=== PATIENT | female | born 1945 | race Caucasian/White ===

== ENCOUNTER 2018-01-13 10:57 | Inpatient (IN) ==
--- OUTSIDE RECORDS SUMMARY | 2018-01-13 17:01 | External Medical Summary | Continuity of Care Document ---
:1945 Author Organization [facility] Care Team Providers Name Role Phone [employer] Unavailable Unavailable Encounters Location Location Encounter Encounter Reason Attending ADM DC Status Source Details Type Number For Provider Date Date Visit INPATIENT [id number] [facility] 12/29 01/13 [facility] Active [facility]
--- OUTSIDE RECORDS SUMMARY | 2018-01-13 17:02 | External Medical Summary | Clinical Summary ---
:1945 Author Organization [facility] Address [address] [place] [address] Phone Care Team Providers Name Role Phone Pastor Fatima MD Primary Care Provider Source Comments Some departments are not documenting in the electronic medical record. If you do not see the information that you expected, contact Release of Information in the Health Information Management department at [phone] for further assistance in locating additional records.[facility] Allergies Active Allergy Reactions Severity Noted Date Comments Codeine UNKNOWN Low 12/29/2017 Penicillins UNKNOWN Low 12/29/2017 Current Medications Prescription Sig. Disp. Refills Start End Date Status Date methyldopa Take 250 mg by Active (ALDOMET) 250 mg mouth twice daily. tablet acetaminophen Take 2 tablets by 0 Active (TYLENOL) 325 mg mouth every 4 8 tablet hours as needed. oxyCODONE Take 1 tablet by 0 Active (ROXICODONE, mouth every 4 8 OXY-IR) 5 mg hours as needed tablet glyBURIDE Take 1 tablet by 90 tablet 3 Active (DIABETA) 2.5 mg mouth twice daily 8 tablet with meals. Take with food. metFORMIN Take 1 tablet by 180 tablet 3 Active (GLUCOPHAGE) 500 mouth twice daily 8 mg tablet with meals. niMODipine Take 2 capsules by 01/20/20 Active (NIMOTOP) 30 mg mouth every 4 8 18 capsule hours for 7 days. heparin (porcine) Inject 0.5 mL Active PF under the skin 8 5,000units/0.5mL every 8 hours. May injection syringe discontinue once mobilizing well senna/docusate Take 1 tablet by 0 Active (SENOKOT-S) 8.6/50 mouth twice daily. 8 mg tablet Take while taking pain medication spironolactone-hyd Take 1 tablet by 90 tablet 3 Active rochlorothiazide mouth every 8 (ALDACTAZIDE) morning. D NOT 25-25 mg tablet restart until after nimotop is stopped; approximately 01/21/18 sodium chloride(#) Take 8.5 mL by Active inj for po 4 mouth three times 8 mEq/mL daily with meals. methyldopa Take 500 mg by 12/29/19 Discontinued (ALDOMET) 500 mg mouth three times 18 tablet daily. spironolactone-hyd Take 1 tablet by 01/13/20 Suspended rochlorothiazide mouth every 18 (ALDACTAZIDE) morning. 25-25 mg tablet glyBURIDE-metformi Take 1 tablet by 01/13/20 Suspended n (GLUCOVANCE) mouth twice daily. 18 2.5-500 mg tablet Take with food. Active Problems Problem Noted Date Diabetes (HCC) 12/29/2017 Hypertension 12/29/2017 Subarachnoid hemorrhage (HCC) 12/29/2017 Encounters Date Type Specialty Care Team Description 12/29/2017 - Hospital Encounter Husmann, Diabetes ([facility]) 01/13/2018 MD Ruslan Perez Paul J, MD 12/29/2017 Procedure Pass 12/29/2017 Anesthesia Event Lul Smith MD 12/29/2017 Procedure Pass 12/29/2017 Surgery Oumar Mercer MD CRANIOTOMY 12/29/2017 Anesthesia Event Radiology Michael Posada SRNA 12/29/2017 Procedure Pass from Last 3 Months Social History Tobacco Use Types Packs/Day Years Used Date Former Smoker Smokeless Tobacco: Never Used Alcohol Use Drinks/Week oz/Week Comments No Sex Assigned at Date Recorded Not on file Last Filed Vital Signs Vital Sign Reading Time Taken Blood Pressure 147/68 01/13/2018 8:03 AM FEATHER TRIMMER Pulse 82 01/13/2018 8:03 AM FEATHER TRIMMER Temperature 37.1 C (98.8 F) 01/13/2018 8:03 AM FEATHER TRIMMER Respiratory Rate - - Oxygen Saturation 99% 01/13/2018 8:03 AM FEATHER TRIMMER Inhaled Oxygen Concentration - - Weight 101.8 kg (224 lb 6.9 oz) 01/07/2018 3:00 AM FEATHER TRIMMER Height 165.1 cm (5' 5") 12/30/2017 3:00 PM FEATHER TRIMMER Body Mass Index 37.35 01/07/2018 3:00 AM FEATHER TRIMMER Plan of Treatment Health Maintenance Due Date Last Done Comments PHYSICAL (COMPREHENSIVE) EXAM 1950 PERTUSSIS VACCINE 1954 TETANUS VACCINE 1960 BREAST CANCER SCREENING 1983 COLORECTAL CANCER SCREENING 1993 SHINGLES VACCINE 2003 OSTEOPOROSIS SCREENING 2008 PREVNAR/PNEUMOVAX (#1) 2008 INFLUENZA VACCINE 06/23/2017 Implants Implanted Type Area Radio Interference Investigator Device Expiration Model / Identifier Date Serial / Lot Device Closure 6fr Starclose Se Vascular Nitinol Clip - Sn/A Right: ARMANDO [id number] / Implanted: Qty: 1 on 12/29/2017 by Ruben Helm MD Femoral LAB:VASC DEV N/A / Artery [id number] Substitute Tissue 3x3in Lyoplant Dura Sodium Hydroxide Onlay - [id number] Left : AESCULAP NEURO 08/22/2022 [id number] / Implanted: Qty: 1 on 12/29/2017 by Oumar Mercer MD Brain DIVISION [id number] / [id number] Clip 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 - [id number] Left: NANCY BARNEY 45.760 / Implanted: Qty: 1 on 12/29/2017 by Oumar Mercer MD Brain 45.760 / 45.760 Mesh Cranial .6mm Small Temporal Titanium Latex Free - [id number] Left: CHRISTIE IRELAND [facility] / Implanted: Qty: 1 on 12/29/2017 by Oumar Mercer MD Brain IMPLANTS / Cover [place] Hole L17mm Od3mm - [id number] Left: CHRISTIE IRELAND [facility] / Implanted: Qty: 2 on 12/29/2017 by Oumar Mercer MD Brain IMPLANTS / Screw Bone 4mm 1.5mm Drill-Free Maxdrive Craniomaxillofacial - [id number] Left: CHRISTIE IRELAND CMF [id number] / Implanted: Qty: 16 on 12/29/2017 by Oumar Mercer MD Brain IMPLANTS [id number] / [id number] Procedures Procedure Name Priority Date/Time Associated Diagnosis Comments CONSULT IV THERAPY Routine 01/03/2018 6:32 TEAM PM FEATHER TRIMMER ECG-SCAN 12/29/2017 11:15 Results for this PM FEATHER TRIMMER procedure are in the results section. ANESTHESIA ARTERIAL Routine 12/29/2017 1:11 Results for this LINE INSERTION PM FEATHER TRIMMER procedure are in the results section. REPAIR ANEURYSM 12/29/2017 11:00 Subarachnoid CRANIOTOMY AM FEATHER TRIMMER hemorrhage (HCC) from Last 3 Months Results POC GLUCOSE (01/13/2018 7:11 AM)Only the most recent of77 resultswithin the time period is included. Component Value Ref Range Glucose, POC 107 (H) 70 - 100 MG/DL Specimen Performing Laboratory MAIN LAB [address] [place] [id number] CBC AND DIFF (01/13/2018 4:10 AM)Only the most recent of16 resultswithin the time period is included. Component Value Ref Range White Blood Cells 8.1 4.5 - 11.0 K/UL RBC 3.12 (L) 4.0 - 5.0 M/UL Hemoglobin 10.0 (L) 12.0 - 15.0 GM/DL Hematocrit 28.7 (L) 36 - 45 % MCV 91.7 80 - 100 FL MCH 31.9 26 - 34 PG MCHC 34.8 32.0 - 36.0 G/DL RDW 15.3 (H) 11 - 15 % Platelet Count 200 150 - 400 K/UL MPV 7.0 7 - 11 FL Neutrophils 76 41 - 77 % Lymphocytes 16 (L) 24 - 44 % Monocytes 6 4 - 12 % Eosinophils 1 0 - 5 % Basophils 1 0 - 2 % Absolute Neutrophil Count 6.20 1.8 - 7.0 K/UL Absolute Lymph Count 1.30 1.0 - 4.8 K/UL Absolute Monocyte Count 0.40 0 - 0.80 K/UL Absolute Eosinophil Count 0.10 0 - 0.45 K/UL Absolute Basophil Count 0.00 0 - 0.20 K/UL Specimen Performing Laboratory Blood MAIN LAB [address] [place] [address] BASIC METABOLIC PANEL (01/13/2018 4:10 AM)Only the most recent of15 resultswithin the time period is included. Component Value Ref Range Sodium 133 (L) 137 - 147 MMOL/L Potassium 4.4 3.5 - 5.1 MMOL/L Chloride 102 98 - 110 MMOL/L CO2 25 21 - 30 MMOL/L Anion Gap 6 3 - 12 Glucose 100 70 - 100 MG/DL Blood Urea Nitrogen 25 7 - 25 MG/DL Creatinine 0.80 0.4 - 1.00 MG/DL Calcium 9.0 8.5 - 10.6 MG/DL eGFR Non >60 >60 mL/min Comment: The eGFR is not validated for use in drug dosing adjustments.Continue to use estimated creatinine clearance per dosing reference text.Please contact the Clinical Pharmacist for questions. eGFR >60 >60 mL/min Comment: The eGFR is not validated for use in drug dosing adjustments.Continue to use estimated creatinine clearance per dosing reference text.Please contact the Clinical Pharmacist for questions. Specimen Performing Laboratory Blood MAIN LAB [address] [place] [id number] SODIUM (01/08/2018 3:49 PM) Component Value Ref Range Sodium 134 (L) 137 - 147 MMOL/L Specimen Performing Laboratory Blood MAIN LAB [address] [place] [address] PHOSPHORUS (01/07/2018 3:34 AM)Only the most recent of10 resultswithin the time period is included. Component Value Ref Range Phosphorus 2.8 2.0 - 4.0 MG/DL Specimen Performing Laboratory Blood MAIN LAB [address] [place] [address] MAGNESIUM (01/07/2018 3:34 AM)Only the most recent of12 resultswithin the time period is included. Component Value Ref Range Magnesium 2.0 1.6 - 2.6 mg/dL Specimen Performing Laboratory Blood MAIN LAB [address] [place] [address] IONIZED CALCIUM (01/07/2018 3:34 AM)Only the most recent of10 resultswithin the time period is included. Component Value Ref Range Ionized Calcium 1.17 1.0 - 1.3 MMOL/L Specimen Performing Laboratory Blood MAIN LAB [address] [place] [address], [place] [address] US DOPPLER VENOUS BILATERAL (01/05/2018 9:41 AM) Specimen Performing Laboratory Bilateral KU RAD RESULTS Impressions No femoral/popliteal deep venous thrombosis in either lower extremity. Approved by Mikayla Nagy M.D. on 01/05/2018 11:32 AM By my electronic signature, I attest that I have personally reviewed the images for this examination and formulated the interpretations and opinions expressed in this report Finalized by Rohit Go M.D. on 01/05/2018 7:19 PM. Dictated by Mikayla Nagy M.D. on 01/05/2018 10:13 AM. Narrative Doppler lower extremity ultrasound Clinical Indication: Female, 72 years; prolonged immobility Technique: Multiple grayscale sonographic images were obtained of both lower extremities with additional color and spectral Doppler acquisitions. Comparison: None Findings: The common femoral, upper saphenous, deep femoral, femoral, and popliteal veins of both lower extremities are patent and fully compressible without focal narrowing.Incidental note is made of duplicated right femoral veins. No soft tissue mass or fluid collection is identified within visualized portions of the lower extremities. Procedure Note Interface, Radiant Results - 01/05/2018 7:22 PM FEATHER TRIMMER Doppler lower extremity ultrasound Clinical Indication: Female, 72 years; prolonged immobility Technique: Multiple grayscale sonographic images were obtained of both lower extremities with additional color and spectral Doppler acquisitions. Comparison: None Findings: The common femoral, upper saphenous, deep femoral, femoral, and popliteal veins of both lower extremities are patent and fully compressible without focal narrowing. Incidental note is made of duplicated right femoral veins. No soft tissue mass or fluid collection is identified within visualized portions of the lower extremities. IMPRESSION No femoral/popliteal deep venous thrombosis in either lower extremity. Approved by Mikayla Nagy M.D. on 01/05/2018 11:32 AM By my electronic signature, I attest that I have personally reviewed the images for this examination and formulated the interpretations and opinions expressed in this report Finalized by Rohit Go M.D. on 01/05/2018 7:19 PM. Dictated by Mikayla Nagy M.D. on 01/05/2018 10:13 AM. BETA HYDROXYBUTYRATE (KETONES) (01/05/2018 4:16 AM) Component Value Ref Range Beta Hydroxybutyrate 0.1 <0.3 MMOL/L Comment: Beta hydroxybutyrate (BOHB) is the most abundant ketone (78%), followed by acetoacetate (20%) and acetone (2%).Measurement BOHB is recommended to assess ketones in DKA. Expected BOHB Results for DKA: Initial presentation high/increasing During treatment decreasing Resolved decreasing/normal Specimen Performing Laboratory MAIN LAB [address] [place] [address] UA REFLEX CULTURE LABEL (12/31/2017 11:45 PM) Component Value Ref Range UA Reflex Culture LAB LABEL Specimen Performing Laboratory Urine MAIN LAB [address] [place] [address] URINALYSIS MICROSCOPIC REFLEX TO CULTURE (12/31/2017 11:45 PM) Component Value Ref Range WBCs,UA 2-10 0 - 2 /HPF RBCs,UA 0-2 0 - 3 /HPF Comment,UA Urine submitted for reflex culture if criteria are met:WBC>10, positive nitrite and/or >=1+ leukocyte esterase. If quantity is not sufficient, an addendum will follow. Squamous Epithelial Cells 0-2 0 - 5 Specimen Performing Laboratory Urine MAIN LAB [address] [place] [address] URINALYSIS DIPSTICK REFLEX TO CULTURE (12/31/2017 11:45 PM) Component Value Ref Range Color,UA YELLOW Turbidity,UA CLEAR CLEAR-CLEAR Specific [place]-Urine 1.027 1.003 - 1.035 pH,UA 6.0 5.0 - 8.0 Protein,UA 1+ (A) NEG-NEG Glucose,UA NEG NEG-NEG Ketones,UA 1+ (A) NEG-NEG Bilirubin,UA NEG NEG-NEG Blood,UA NEG NEG-NEG Urobilinogen,UA NORMAL NORM-NORMAL Nitrite,UA NEG NEG-NEG Leukocytes,UA NEG NEG-NEG Urine Ascorbic Acid, UA NEG NEG-NEG Specimen Performing Laboratory Urine MAIN LAB [address] [place] [address] POTASSIUM (12/30/2017 10:31 AM) Component Value Ref Range Potassium 3.8 3.5 - 5.1 MMOL/L Specimen Performing Laboratory Blood MAIN LAB [address] [place] [address] CTA HEAD WO/W CONTR+POST PRO (12/30/2017 4:18 AM)Only the most recent of2 resultswithin the time period is included. Specimen Performing Laboratory KU RAD RESULTS Impressions 1.Interval left pterional craniotomy and anterior communicating artery aneurysm clipping. No refilling of the aneurysm identified. 2.Slight improvement in basilar subarachnoid hemorrhage with persistent sulcal effacement. 3.Slight decrease in size of the posterior commuting arteries, which may be due to contrast bolus timing or early mild vasospasm. 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 Approved by Shorty Mi D.O. on 12/30/2017 9:32 AM By my electronic signature, I attest that I have personally reviewed the images for this examination and formulated the interpretations and opinions expressed in this report Finalized by PETEY GONZALEZ M.D. on 12/30/2017 12:45 PM. Dictated by Shorty Mi D.O. on 12/30/2017 8:18 AM. Narrative EXAM: CTA HEAD HISTORY: Female, 72 years. s/p clipping. TECHNIQUE: Multiple contiguous axial images were obtained of the brain before and following the administration of Isovue 370. CTA maximum density projection images were obtained of the brain with image post processing. Comparison: CTA head 12/29/2017 FINDINGS: Postoperative changes of interval left pterional craniotomy and anterior communicating artery clipping. Slight decrease in subarachnoid hemorrhage. Persistent mild generalized sulcal effacement. The ventricles are unchanged in size and configuration without evidence of hydrocephalus. Development of small hypodensity in the right basal ganglia. The zarate white matter interfaces are otherwise maintained. The basal cisterns are patent. Unchanged mild bilateral distal internal carotid artery atherosclerotic calcification without significant narrowing. 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 No filling of the previously identified anterior communicating artery aneurysm. The right A1 segment is hypoplastic or absent. The distal anterior cerebral arteries are widely patent. The middle cerebral arteries are widely patent. The left vertebral artery is dominant. The basilar and posterior cerebral arteries are patent, though slightly small in caliber, without irregularity. Procedure Note Interface, Radiant Results - 12/30/2017 12:48 PM FEATHER TRIMMER EXAM: CTA HEAD HISTORY: Female, 72 years. s/p clipping. TECHNIQUE: Multiple contiguous axial images were obtained of the brain before and following the administration of Isovue 370. CTA maximum density projection images were obtained of the brain with image post processing. Comparison: CTA head 12/29/2017 FINDINGS: Postoperative changes of interval left pterional craniotomy and anterior communicating artery clipping. Slight decrease in subarachnoid hemorrhage. Persistent mild generalized sulcal effacement. The ventricles are unchanged in size and configuration without evidence of hydrocephalus. Development of small hypodensity in the right basal ganglia. The zarate white matter interfaces are otherwise maintained. The basal cisterns are patent. Unchanged mild bilateral distal internal carotid artery atherosclerotic calcification without significant narrowing. 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 No filling of the previously identified anterior communicating artery aneurysm. The right A1 segment is hypoplastic or absent. The distal anterior cerebral arteries are widely patent. The middle cerebral arteries are widely patent. The left vertebral artery is dominant. The basilar and posterior cerebral arteries are patent, though slightly small in caliber, without irregularity. IMPRESSION 1. Interval left pterional craniotomy and anterior communicating artery aneurysm clipping. No refilling of the aneurysm identified. 2. Slight improvement in basilar subarachnoid hemorrhage with persistent sulcal effacement. 3. Slight decrease in size of the posterior commuting arteries, which may be due to contrast bolus timing or early mild vasospasm. 4. 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 Approved by Shorty Mi D.O. on 12/30/2017 9:32 AM By my electronic signature, I attest that I have personally reviewed the images for this examination and formulated the interpretations and opinions expressed in this report Finalized by PETEY GONZALEZ M.D. on 12/30/2017 12:45 PM. Dictated by Shorty Mi D.O. on 12/30/2017 8:18 AM. TROPONIN-I (12/30/2017 2:05 AM) Component Value Ref Range Troponin-I 0.03 0.0 - 0.05 NG/ML Specimen Performing Laboratory MAIN LAB [address] [place] [address] ECG-SCAN (12/29/2017 11:15 PM) Narrative Ordered by an unspecified provider. GLUCOSE,BG (12/29/2017 1:50 PM) Component Value Ref Range Glucose 228 (H) 70 - 100 MG/DL Specimen Performing Laboratory Blood MAIN LAB [address] [place] [address] SODIUM,BG (12/29/2017 1:50 PM) Component Value Ref Range Sodium 136 (L) 137 - 147 MMOL/L Specimen Performing Laboratory Blood MAIN LAB [address] [place] [id number] POTASSIUM, BG (12/29/2017 1:50 PM) Component Value Ref Range Potassium 4.3 3.5 - 5.1 MMOL/L Specimen Performing Laboratory Blood MAIN LAB [address] [place] [address]17[address] LACTIC ACID (BG - RAPID LACTATE) (12/29/2017 1:50 PM) Component Value Ref Range Lactic Acid,BG 1.2 0.5 - 2.0 MMOL/L Specimen Performing Laboratory Blood MAIN LAB [address] [place] [address] IONIZED CALCIUM,BG (12/29/2017 1:50 PM) Component Value Ref Range Ionized Calcium 1.12 1.0 - 1.3 MMOL/L Specimen Performing Laboratory Blood MAIN LAB [address] [place] [address] HEMOGLOBIN & HEMATOCRIT, BG (12/29/2017 1:50 PM) Component Value Ref Range Hemoglobin BG 11.0 (L) 12.0 - 15.0 GM/DL Hematocrit BG 33.8 (L) 36 - 45 % Specimen Performing Laboratory Blood MAIN LAB [address] [place] [address] BLOOD GASES, ARTERIAL (12/29/2017 1:50 PM)Only the most recent of2 resultswithin the time period is included. Component Value Ref Range pH-Arterial 7.38 7.35 - 7.45 pCO2-Arterial 31 (L) 35 - 45 MMHG pO2-Arterial 192 (H) 80 - 100 MMHG Base Deficit-Arterial 5.9 MMOL/L O2 Sat-Arterial 99.6 (H) 95 - 99 % Ntdhalglvin-SHH-Pcb 19.6 (L) 21 - 28 MMOL/L Specimen Performing Laboratory Blood, arterial - Blood MAIN LAB [address] [place] [address] ANESTHESIA ARTERIAL LINE INSERTION (12/29/2017 1:11 PM) GEORGETTE He 12/29/20171:14 PM Anesthesia Procedure: Arterial Line Placement A-LINE INSERTION Date/Time: 12/29/2017 8:56 AM Patient location: OR Indications: frequent labs and hemodynamic monitoring Preprocedure checklist performed: 2 patient identifiers, risks & benefits discussed, patient evaluated, timeout performed, consent obtained, patient being monitored and sterile drape Sterile technique: - Proper hand washing - Cap, mask - Sterile gloves - Skin prep for antisepsis Arterial Line Procedure Patient sedated: yes (see MAR) Sedation type: general; Artery prepped with chlorhexidine; skin prep agent completely dried prior to procedure. Location: radial artery Laterality: left Technique: ultrasound Needle gauge: 20 G Number of attempts: 2 Procedure Outcome Catheter secured with adhesive dressing applied Events: no complications noted during insertion and skin intact, warm, and dry Observation: pt tolerated well Performed by: LUL PANIAGUA Authorized by: LUL PANIAGUA BLOOD TYPE CONFIRMATION - ORDER ONLY IF REQUESTED BY LAB (12/29/2017 12:01 PM) Component Value Ref Range ABO/RH(D) A NEG Specimen Performing Laboratory Blood KU MAIN LAB [address] [place] [address] IR ARTERIOGRAM NEURO (12/29/2017 10:56 AM) Specimen Performing Laboratory KU RAD RESULTS Impressions 1.Irregularly shaped anterior communicating artery aneurysm measuring 6.03 mm in height, 5.11 mm in width, and 3.5 mm at the neck with a Espinoza's point arising from the aneurysm measuring 2.17 mm x 2.85 mm. After a multidisciplinary discussion with Dr. Mercer, the on-call vascular neurosurgeon, the decision was made to proceed with neurosurgical clipping of the aneurysm due to its wide neck and difficult visualization of the entire aneurysm on digital subtraction angiography. 2.Right P-comm artery aneurysm measuring 3.11 mm in height, 3.27 mm in width, and 2.76 mm at the neck. 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 I performed this procedure without the involvement of a resident or fellow. Finalized by RUBEN HELM M.D. on 12/29/2017 3:07 PM. Dictated by RUBEN HELM M.D. on 12/29/2017 1:16 PM. Narrative Cerebral Angiogram Indication - SAH Procedures Performed 1) Right common carotid artery cervical angiogram. 2) Selective right internal carotid artery cerebral angiograms x 5. 3) Selective right internal carotid artery 3D cerebral angiogram. 4) Selective left vertebral artery cerebral angiograms x 2. 5) Selective left internal carotid artery cerebral angiograms x 4. 6) Selective left internal carotid artery 3D cerebral angiogram. 7) Right common femoral artery angiograms x 2. Referring Physician - Oumar Mercer M.D. Neurointerventionalist:Ruben Helm MD Contrast - 200 cc Chd500 Total mGy - 1821 Anesthesia: General endotracheal anesthesia Consent -The procedure and its risks, benefits, and alternative treatments were explained to the patient and her and they understood them and she signed the consent form. Clinical History: Mrs. Dillon is a 72 year old female who collapsed in the shower yesterday evening. A CT scan showed subarachnoid hemorrhage and she is here for a cerebral angiogram with possible endovascular coil embolization. Description of Procedure The patient was brought to the angio suite and placed in supine position on the angio table.General endotracheal anesthesia was commenced. The right groin was prepped in a standard sterile fashion.Local anesthesia was obtained with 10 cc of 1 % lidocaine.Following this, a 5 F 25 cm sheath was placed in the right common femoral artery, establishing arterial access. RCCA Technique A 5 [place] 100 cm Vert catheter was advanced over a 150 cm 0.035 [place] wire over the aortic arch and into the right common carotid artery under fluoroscopic guidance.Images of the right cervical carotids were obtained in biplane projections. RCCA Interpretation The angiogram demonstrated normal flow through the cervical carotids with no evidence of significantstenosis. Mild tortuosity is noted in the cervical segment of the right internal carotid artery. ANTOINE Technique Under fluoroscopic and roadmap guidance, the catheter was advanced into the cervical right internal carotid artery and images were obtained in biplane projections of the right anterior intracranial circulation. ANTOINE Interpretation The angiogram demonstrated normal antegrade flow into the right middle cerebral artery territory. 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 The capillary and venous phases are unremarkable. ANTOINE 3D Angiogram Technique The catheter was attached to the contrast power injector and a right internal carotid artery 3D cerebral angiogram was performed. ANTOINE 3D Angiogram Interpretation The angiogram demonstrated a right P-comm artery aneurysm measuring 3.11 mm in height, 3.27 mm in width, and 2.76 mm at the neck. LVA Technique The left vertebral artery was selectively catheterized under fluoroscopic and roadmap guidance over the [place] wire and images were obtained in biplane projections of the posterior intracranial circulation. LVA Interpretation The angiogram demonstrated normal antegrade flow into the vertebrobasilar artery circulation.The capillary and venous phases are unremarkable. LICA Technique Due to a bovine type I aortic arch catheter was switched out for a RAFFY-3 catheter which was advanced into the cervical left internal carotid artery under fluoroscopic and roadmap guidance. Images were obtained in biplane projections of the left anterior intracranial circulation. LICA Interpretation The angiogram demonstrated normal antegrade flow into the left middle and bilateral anterior cerebral artery territories.An irregularly shaped anterior communicating artery aneurysm is noted, measuring 6.03 mm in height, 5.11 mm in width, and 3.5 mm at the neck with a Espinoza's point arising from the aneurysm measuring 2.17 mm x 2.85 mm.The capillary and venous phases are unremarkable. Of note, the roadmap image used to catheterize the left internal carotid artery demonstrated a normal carotid bifurcation. LICA 3D Angiogram Technique The catheter was attached to the contrast power injector and a left internal carotid artery 3D cerebral angiogram was performed. LICA 3D Angiogram Interpretation The angiogram demonstrated an irregularly shaped anterior communicating artery aneurysm measuring 6.03 mm in height, 5.11 mm in width, and 3.5 mm at the neck with a Espinoza's point arising from the aneurysm measuring 2.17 mm x 2.85 mm. After reviewing the final images, the catheter was removed and a right common femoral artery angiogram was performed.The angiogram demonstrated the access site well above the bifurcation with no branching vessels arising from the site; therefore, hemostasis was achieved using a Star close closure device followed by manual pressure for 5 minutes. The patient was transported to the operating room in stable clinical and hemodynamic conditions. Complications - none immediate Procedure Note Interface, Radiant Results - 12/29/2017 3:10 PM FEATHER TRIMMER Cerebral Angiogram Indication - SAH Procedures Performed 1) Right common carotid artery cervical angiogram. 2) Selective right internal carotid artery cerebral angiograms x 5. 3) Selective right internal carotid artery 3D cerebral angiogram. 4) Selective left vertebral artery cerebral angiograms x 2. 5) Selective left internal carotid artery cerebral angiograms x 4. 6) Selective left internal carotid artery 3D cerebral angiogram. 7) Right common femoral artery angiograms x 2. Referring Physician - Oumar Mercer M.D. Neurointerventionalist: Ruben Helm MD Contrast - 200 cc [id number] Total mGy - 1821 Anesthesia: General endotracheal anesthesia Consent - The procedure and its risks, benefits, and alternative treatments were explained to the patient and her and they understood them and she signed the consent form. Clinical History: Mrs. Dillon is a 72 year old female who collapsed in the shower yesterday evening. A CT scan showed subarachnoid hemorrhage and she is here for a cerebral angiogram with possible endovascular coil embolization. Description of Procedure The patient was brought to the angio suite and placed in supine position on the angio table. General endotracheal anesthesia was commenced. The right groin was prepped in a standard sterile fashion. Local anesthesia was obtained with 10 cc of 1% lidocaine. Following this, a 5 F 25 cm sheath was placed in the right common femoral artery, establishing arterial access. RCCA Technique A 5 [place] 100 cm Vert catheter was advanced over a 150 cm 0.035 [place] wire over the aortic arch and into the right common carotid artery under fluoroscopic guidance. Images of the right cervical carotids were obtained in biplane projections. RCCA Interpretation The angiogram demonstrated normal flow through the cervical carotids with no evidence of significant stenosis. Mild tortuosity is noted in the cervical segment of the right internal carotid artery. ANTOINE Technique Under fluoroscopic and roadmap guidance, the catheter was advanced into the cervical right internal carotid artery and images were obtained in biplane projections of the right anterior intracranial circulation. ANTOINE Interpretation The angiogram demonstrated normal antegrade flow into the right middle cerebral artery territory. 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 The capillary and venous phases are unremarkable. ANTOINE 3D Angiogram Technique The catheter was attached to the contrast power injector and a right internal carotid artery 3D cerebral angiogram was performed. ANTOINE 3D Angiogram Interpretation The angiogram demonstrated a right P-comm artery aneurysm measuring 3.11 mm in height, 3.27 mm in width, and 2.76 mm at the neck. LVA Technique The left vertebral artery was selectively catheterized under fluoroscopic and roadmap guidance over the [place] wire and images were obtained in biplane projections of the posterior intracranial circulation. LVA Interpretation The angiogram demonstrated normal antegrade flow into the vertebrobasilar artery circulation. The capillary and venous phases are unremarkable. LICA Technique Due to a bovine type I aortic arch catheter was switched out for a RAFFY-3 catheter which was advanced into the cervical left internal carotid artery under fluoroscopic and roadmap guidance. Images were obtained in biplane projections of the left anterior intracranial circulation. LICA Interpretation The angiogram demonstrated normal antegrade flow into the left middle and bilateral anterior cerebral artery territories. An irregularly shaped anterior communicating artery aneurysm is noted, measuring 6.03 mm in height, 5.11 mm in width, and 3.5 mm at the neck with a Espinoza's point arising from the aneurysm measuring 2.17 mm x 2.85 mm. The capillary and venous phases are unremarkable. Of note, the roadmap image used to catheterize the left internal carotid artery demonstrated a normal carotid bifurcation. LICA 3D Angiogram Technique The catheter was attached to the contrast power injector and a left internal carotid artery 3D cerebral angiogram was performed. LICA 3D Angiogram Interpretation The angiogram demonstrated an irregularly shaped anterior communicating artery aneurysm measuring 6.03 mm in height, 5.11 mm in width, and 3.5 mm at the neck with a Espinoza's point arising from the aneurysm measuring 2.17 mm x 2.85 mm. After reviewing the final images, the catheter was removed and a right common femoral artery angiogram was performed. The angiogram demonstrated the access site well above the bifurcation with no branching vessels arising from the site; therefore, hemostasis was achieved using a Star close closure device followed by manual pressure for 5 minutes. The patient was transported to the operating room in stable clinical and hemodynamic conditions. Complications - none immediate IMPRESSION 1. 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 After a multidisciplinary discussion with Dr. Mercer, the on-call vascular neurosurgeon, the decision was made to proceed with neurosurgical clipping of the aneurysm due to its wide neck and difficult visualization of the entire aneurysm on digital subtraction angiography. 2. Right P-comm artery aneurysm measuring 3.11 mm in height, 3.27 mm in width , and 2.76 mm at the neck. 3. Type I Bovine aortic arch. I performed this procedure without the involvement of a resident or fellow. Finalized by RUBEN HELM M.D. on 12/29/2017 3:07 PM. Dictated by RUBEN HELM M.D. on 12/29/2017 1:16 PM. TYPE & CROSSMATCH (12/29/2017 10:45 AM) Component Value Ref Range Units Ordered 2 Crossmatch Expires 01/01/2018 Record Check 2ND TYPE REQUIRED ABO/RH(D) A NEG Antibody Screen NEG Electronic Crossmatch YES Unit Number [id number] Blood Component Type RBC,ADSOL,LEUKO REDUCED Unit Division 0 Status OF Unit REL FROM ALLOC Transfusion Status OK TO TRANSFUSE Crossmatch Result COMPATIBLE,ELECTRONIC Unit Number [id number] Blood Component Type RBC,ADSOL,LEUKO REDUCED,2ND CONT. Unit Division 0 Status OF Unit REL FROM ALLOC Transfusion Status OK TO TRANSFUSE Crossmatch Result COMPATIBLE,ELECTRONIC Specimen Performing Laboratory [facility] [address] [place] [address] [id number] PTT (APTT) (12/29/2017 5:44 AM) Component Value Ref Range APTT 24.8 21.0 - 39.0 SEC Specimen Performing Laboratory [facility] [address] [place] [address] [id number] PROTIME INR (PT) (12/29/2017 5:44 AM) Component Value Ref Range INR 1.1 0.8 - 1.2 Specimen Performing Laboratory [facility] [address] [place] [address] [id number] LACTIC ACID(LACTATE) (12/29/2017 5:44 AM) Component Value Ref Range Lactic Acid 1.7 0.5 - 2.0 MMOL/L Specimen Performing Laboratory [facility] [address] [place] [address] [id number] HEMOGLOBIN A1C (12/29/2017 5:44 AM) Component Value Ref Range Hemoglobin A1C 6.7 (H) 4.0 - 6.0 % Comment: The ADA recommends that most patients with type 1 and type 2 diabetes maintain an A1c level <7%. Specimen Performing Laboratory [facility] [address] [place] [address] [id number] LIPID PROFILE (12/29/2017 5:44 AM) Component Value Ref Range Cholesterol 111 <200 MG/DL Triglycerides 40 <150 MG/DL HDL 42 >40 MG/DL LDL 63 <100 MG/DL VLDL 8 MG/DL Non HDL Cholesterol 69 MG/DL Comment: Calculated non-HDL Cholesterol (non-HDL-C) indirectly measures LDL-C, Lp(a), IDL-C, and VLDL-C.It is a surrogate marker for Apoprotein B.Goal should be less than 130 mg/dL. Specimen Performing Laboratory [facility] [address] [place] [address] COMPREHENSIVE METABOLIC PANEL (12/29/2017 5:44 AM) Component Value Ref Range Sodium 137 137 - 147 MMOL/L Potassium 4.6 3.5 - 5.1 MMOL/L Chloride 108 98 - 110 MMOL/L Glucose 252 (H) 70 - 100 MG/DL Blood Urea Nitrogen 18 7 - 25 MG/DL Creatinine 0.83 0.4 - 1.00 MG/DL Calcium 8.8 8.5 - 10.6 MG/DL Total Protein 6.1 6.0 - 8.0 G/DL Total Bilirubin 0.4 0.3 - 1.2 MG/DL Albumin 3.6 3.5 - 5.0 G/DL Alk Phosphatase 40 25 - 110 U/L AST (SGOT) 15 7 - 40 U/L CO2 22 21 - 30 MMOL/L ALT (SGPT) 9 7 - 56 U/L Anion Gap 7 3 - 12 eGFR Non >60 >60 mL/min Comment: The eGFR is not validated for use in drug dosing adjustments.Continue to use estimated creatinine clearance per dosing reference text.Please contact the Clinical Pharmacist for questions. eGFR >60 >60 mL/min Comment: The eGFR is not validated for use in drug dosing adjustments.Continue to use estimated creatinine clearance per dosing reference text.Please contact the Clinical Pharmacist for questions. Specimen Performing Laboratory [facility] [address] [place] [address] from Last 3 Months
--- OUTSIDE RECORDS SUMMARY | 2018-01-13 17:03 | External Medical Summary | Encounter Summary ---
:[address] [facility] Address [address] [place] [address] Phone Care Team Providers Name Role Phone Pastor Fatima MD Primary Care Provider Reason for Visit Auth/Cert Status Reason Specialty Diagnoses / Procedures Referred By Contact Referred To Contact Diagnoses Subarachnoid hemorrhage (HCC) Ruptured Aneurysm Subarachnoid hemorrhage (HCC) Encounter Details Date Type Department Care Team Description 12/29/2017 - Hospital Encounter [facility] Ana Harvey MD [address] [place] [id number] [phone] Diabetes (HCC) 01/13/2018 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 SCIENTIST Pulse 82 01/13/2018 8:03 AM FOOD PRESERVATION SCIENTIST Temperature 37.1 C (98.8 F) 01/13/2018 8:03 AM FOOD PRESERVATION SCIENTIST Respiratory Rate - - Oxygen Saturation 99% 01/13/2018 8:03 AM FOOD PRESERVATION SCIENTIST Inhaled Oxygen Concentration - - Weight 101.8 kg (224 lb 6.9 oz) 01/07/2018 3:00 AM FOOD PRESERVATION SCIENTIST Height 165.1 cm (5' 5") 12/30/2017 3:00 PM FOOD PRESERVATION SCIENTIST Body Mass Index 37.35 01/07/2018 3:00 AM FOOD PRESERVATION SCIENTIST in this encounter Functional Status Functional Status Response Date of Assessment Does the patient have a hearing impairment: No 12/30/2017 as of this encounter Medications at Time of Discharge Medication Sig. Disp. Refills Start Date End Date acetaminophen Take 2 tablets by 0 01/13/2018 (TYLENOL) 325 mg mouth every 4 hours as tablet needed. glyBURIDE (DIABETA) Take 1 tablet by mouth 90 tablet 3 01/13/2018 2.5 mg tablet twice daily with meals. Take with food. heparin (porcine) PF Inject 0.5 mL under 01/13/2018 5,000units/0.5mL the skin every 8 injection syringe hours. May discontinue once mobilizing well metFORMIN (GLUCOPHAGE) Take 1 tablet by mouth 180 tablet 3 01/13/2018 500 mg tablet twice daily with meals. methyldopa (ALDOMET) Take 250 mg by mouth 250 mg tablet twice daily. niMODipine (NIMOTOP) Take 2 capsules by 01/13/2018 01/20/2018 30 mg capsule mouth every 4 hours for 7 days. oxyCODONE (ROXICODONE, Take 1 tablet by mouth 0 01/13/2018 OXY-IR) 5 mg tablet every 4 hours as needed senna/docusate Take 1 tablet by mouth 0 01/13/2018 (SENOKOT-S) 8.6/50 mg twice daily. Take tablet while taking pain medication sodium chloride(#) inj Take 8.5 mL by mouth 01/13/2018 for po 4 mEq/mL three times daily with meals. spironolactone-hydroch Take 1 tablet by mouth 90 tablet 3 01/13/2018 lorothiazide every morning. D NOT (ALDACTAZIDE) 25-25 mg restart until after tablet nimotop is stopped; approximately 01/21/18 as of this encounter Progress Notes Rina Crews, RN - 01/13/2018 9:57 AM Gavinelidia Wilma discharged on 2017. . Discharge instructions reviewed with patient. Valuables returned: . Home medications: . PIVs removed. Afebrile. VSS. All questions answered. Pt leaving hospital via car with nephew. Will be going to rehab facility in [place], [place]. This RN to call report to facility. Anabel MitchellSUSSY - 01/13/2018 8:42 AM CSTFormatting of this note may be different from the original. Neurosurgery Progress Note SUBJECTIVE: Up in chair during visit this AM, brightly awake and engaged. Discussed plan for today;questions and concerns addressed. OBJECTIVE: Vital Signs: 24 Hour Range BP: (146-169)/(41-68) Temp: [36.6 C (97.8 F)-37.1 C (98.8 F)] Pulse: [71-85] Respirations: [17 PER MINUTE-18 PER MINUTE] SpO2: [99 %-100 %] O2 Delivery: None (Room Air) Awake, alert Able to state name, place, month Follows commands x 4, good strength Incision C/D/I Left arm glasses wrapped with gauze ASSESSMENT/PLAN: 72 y.o. female s/p Left frontal craniotomy for clipping acomm aneurysm. Active Hospital Problems Diagnosis Diabetes (HCC) Hypertension Subarachnoid hemorrhage (HCC) PBD # 16; POD # 15 Left ACOMM aneurysm clipping (Dr. 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 Prophylaxis: A)GI: PPI B) Lines: None; PIV C) Urinary Catheter: No D) Antibiotic Usage: No E) VTE: Pharmacological prophylaxis; SQ Heparin and Mechanical prophylaxis; Sequential compression device F) Restraints: Patient assessed for need for restraints. Anabel Mitchell, ANIMAL SHELTER WORKER 8793 Please call [phone] with any questions.Bridgett Mcmahan, PT - 01/12/2018 3: 19 PM CSTPHYSICAL THERAPY NOTE Attempted to see patient for Physical Therapy this date. Patient reports that she just ambulated with OT and then was up to bathroom and does not feel like she can ambulate any more at this time. Educated patient on the benefits of mobility, but she continued to decline. Encouraged patient to walk again with nursing staff later this date. Will continue to follow and treat as able and indicated. Therapist: Bridgett Mcmahan, PT Date: 01/12/2018 Yenny Chandra - 01/12/2018 1:05 PM CSTFormatting of this note may be different from the original. OCCUPATIONAL THERAPY PROGRESS NOTE Patient Name: Yarely Dillon Room/Bed: AJ7353/01 Admitting Diagnosis: Ruptured Aneurysm Subarachnoid hemorrhage (HCC) Past Medical History: Diagnosis Date DM (diabetes mellitus) (HCC) HTN (hypertension) Mobility Progressive Mobility Level: Walk in hallway Distance Walked (feet): 60 ft Level of Assistance: Assist X1 Assistive Device: Walker Time Tolerated: 11-30 minutes Activity Limited By: Weakness;Fatigue;Pain Subjective Pertinent Dx per Physician: 72 y.o female who presented to OSH after fall in shower on 12/28. Developed pain in back of head and lost consciousness, nausea and vomiting post-LOC. CT head obtained with evidence of SAH, transferred to [facility] for management of traumatic vs aneurysmal SAH. 12/29: OR for Left pterional craniotomy for clipping of AComm aneurysm. Precautions: Falls ([employer] video monitor ) Pain / Complaints: Patient agrees to participate in therapy Pain Location: Back Pain Level Current: 7 (RN notified) Comments: Patient positioned for comfort in recliner uppon therapist arrival and departure with needs met and precautions in place. Patient watching TV show. [employer] architecture technician notified of patient's return to room. Objective Psychosocial Status: Willing and Cooperative to Participate Persons Present: None Home Living Type of Home: House Home Layout: Able to Live on Main Level w/Bedrm/Bathrm Access Bathroom Shower / Tub: Walk-in Shower Bathroom Toilet: Standard Prior Function Level Of Kleberg: Independent with ADLs and functional transfers; Independent with homemaking w/ambulation Lives With: Spouse Receives Help From: None Needed Vocational: Retired Vision Current Vision: Wears Glasses All of the Time ADL's Where Assessed: Standing at Sink;Chair;In Bathroom Grooming Assist: Minimal Assist Grooming Deficits: Verbal Cueing;Supervision/Safety;Standing With Assistive Device;Wash/Dry Hands (Contact Guard; Cues to stand within walker at sink) LE Dressing Assist: Maximum Assist LE Dressing Deficits: Don/Doff R Sock;Don/Doff L Sock (Attempted in recliner ) Toileting Assist: Moderate Assist (toileting tasks; Minimal Assist toileting transfer ) Toileting Deficits: Steadying;Verbal Cueing;Supervision/Safety;Grab Bar Use; Perineal Hygiene Functional Transfer Assist: Minimal Assist Functional Transfer Deficits: Steadying;Toilet Transfer Comment: Patient required assistance for posterior annabel care; she was able to assist with frontal annabel care with assist for balance in standing. Patient required consistent cueing for roller walker management during mobility. Minimal assist for mobility with walker and minimal assist for controlled descent to recliner chair at end of session. Pt attempted to cross LEs / bend forward to reach socks, however, she was only able to reach ankle level. Activity Tolerance Endurance: 3/5 Tolerates 25-30 Minutes Exercise w/Multiple Rests Cognition Problem Solving: Decreased Judgment/Safety Attention: Awake/Alert Cognition Comment: Cooperative and follows commands. Alert and oriented. Patient stated, "I've been here for two weeks; I'm just tired." Requires cues for safety during mobility. Decreased problem-solving skills. Decreased insight into deficits. Education Persons Educated: Patient Barriers To Learning: Cognitive Deficits Interventions: Repetition of Instructions;Physical Cueing Teaching Methods: Verbal Instruction Patient Response: Return Demonstration Topics: Role of OT, Goals for Therapy;ADL Compensatory Techniques Goal Formulation: With Patient Assessment Assessment: Decreased ADL Status;Decreased Safe/Judg during ADL;Decreased Endurance;Decreased Self-Care Trans;Decreased High-Level ADLs;Decreased Cognition Prognosis: Good;w/Cont OT s/p Acute Discharge AM-PAC 6 Clicks Daily Activity Inpatient Putting on and taking off regular lower body clothes?: A Lot Bathing (Including washing, rinsing, drying): A Lot Toileting, which includes using toilet, bedpan, or urinal: A Little Putting on and taking off regular upper body clothing: A Little Taking care of personal grooming such as brushing teeth: A Little Eating meals?: None Daily Activity Raw Score: 17 Standardized (t-scale) score: 37.26 CMS 0-100% Score: 50.11 CMS G Code Modifier: CK Plan Treatment Interventions: ADL Retraining;Functional Transfer Training;Endurance Training;CompensatoryTechnique Education OT Frequency: 5x/week Plan for next session: Dressing tasks at edge of bed; Progress endurance for out of bed ADLs; Multi-step functional tasks ADL Goals Patient Will Perform All ADL's: w/ Modified Kleberg, w/ Good Judgment/ Safety Functional Transfer Goals Pt Will Perform All Functional Transfers: Modified Independent, w/ Good Judgment /Safety OT Discharge Recommendations OT Discharge Recommendations: Inpatient Setting Equipment Recommendations: Too early to be determined Therapist: Yenny Chandra OTR/L 2101 Date: 01/12/2018Anabel Mitchell APRN - 01/12/2018 9:44 AM CSTFormatting of this note may be different from the original. Neurosurgery Progress Note SUBJECTIVE: Up in chair during visit this AM, brightly awake and engaged. Discussed plan for today;questions and concerns addressed. OBJECTIVE: Vital Signs: 24 Hour Range BP: (134-184)/(41-72) Temp: [36.6 C (97.8 F)-37.5 C (99.5 F)] Pulse: [66-104] Respirations: [16 PER MINUTE-20 PER MINUTE] SpO2: [97 %-100 %] O2 Delivery: None (Room Air) Awake, alert Able to state name, place, month Follows commands x 4, good strength Head wrap in place, left arm glasses wrapped with gauze ASSESSMENT/PLAN: 72 y.o. female s/p Left frontal craniotomy for clipping acomm aneurysm. Active Hospital Problems Diagnosis Diabetes (HCC) Hypertension Subarachnoid hemorrhage (HCC) PBD # 15; POD # 14 Left ACOMM aneurysm clipping (Dr. Mercer) Continue current care -- Keppra, Nimotop NA 134 PT/OT/FREIGHT SOLICITOR Pain controlled Appreciate Medicine recommendations Discharge planning -- rehab placement; CM/SW involved. Prophylaxis: A)GI: PPI B) Lines: None; PIV C) Urinary Catheter: No D) Antibiotic Usage: No E) VTE: Pharmacological prophylaxis; SQ Heparin and Mechanical prophylaxis; Sequential compression device F) Restraints: Patient assessed for need for restraints. Anabel Mitchell, ANIMAL SHELTER WORKER 0090 Please call [phone] with any questions.Kenyatta Mathis, ERMELINDA - 01/12/2018 2:45 AM CSTBP 184/47, HR 87. Pt denies pain/headache. Alert and Oriented x4. Moves Extremities x 4. BASHIR. Neurosurgery paged. Neurosurgery informed that pt was just given her Nimotop. Order to re check BP in 30min. Will continue to monitor.Liban Acosta MD - 01/11/2018 12:46 PM CSTFormatting of this note may be different from the original. General Consult Note Admission Date: 12/29/2017 LOS: 13 days Reason for Consult: Ms. Dillon is a 72 yo female with a history of HTN and TIIDM who initially presented as OSH transfer for SAH. Internal Medicine is consulted for assist in returning to home diabetes medication for discharge. 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 -Continue methyldopa and nimodipine per primary team #SAH -S/p craniotomy and clipping -Keppra -Management per primary team Patient seen and discussed with Dr. Castro. We will continue to follow peripherally. Liban Acosta MD PGY-1 Internal Medicine Consult pager: [phone] History of Present Illness: Yarely Dillon is a 72 y.o. female. No acute events overnight. Florinefd/leeanna 01/08, AIRCRAFT LANDING GEAR INSPECTOR metformin and glyburide restarted last night. No F/C, N/V. Past Medical History: Diagnosis Date DM (diabetes mellitus) (HCC) HTN (hypertension) Past Surgical History: Procedure Laterality Date INTRACRANIAL ANEURYSM REPAIR Left 12/29/2017 REPAIR ANEURYSM CRANIOTOMY performed by Oumar Mercer MD at [facility] OR/Periop HX TONSILLECTOMY Social History Social History Marital status: Spouse name: N/A Number of children: N/A Years of education: N/A Social History Main Topics Smoking status: Former Smoker Smokeless tobacco: Never Used Alcohol use No Drug use: Unknown Sexual activity: Not on file Other Topics Concern Not on file Social History Narrative Lives with Asaf, no children but 2 nephews in [place]. Perform all ADLs independently History reviewed. No pertinent family history. Allergies: Codeine and Penicillins Scheduled Meds: docusate (COLACE) capsule 100 mg 100 mg Oral BID glyBURIDE (DIABETA) tablet 2.5 mg 2.5 mg Oral BID w/meals And metFORMIN (GLUCOPHAGE) tablet 500 mg 500 mg Oral BID w/meals heparin (porcine) PF syringe 5,000 Units 5,000 Units Subcutaneous Q8H insulin aspart (NOVOLOG FLEXPEN) injection PEN 0-28 Units 0-28 Units Subcutaneous ACHS levETIRAcetam (KEPPRA) tablet 500 mg 500 mg Oral BID melatonin tablet 5 mg 5 mg Oral QHS methyldopa (ALDOMET) tablet 250 mg 250 mg Oral BID milk of magnesia (CONC) oral suspension 10 mL 10 mL Oral QDAY niMODipine (NIMOTOP) capsule 60 mg 60 mg Oral Q4H* senna/docusate (SENOKOT-S) tablet 1 tablet 1 tablet Oral BID sodium chloride(#) inj for po solution 34 mEq 34 mEq Oral Q12H Continuous Infusions: PRN and Respiratory Meds:acetaminophen Q4H PRN OR acetaminophen Q4H PRN, bisacodyl QDAY PRN, ondansetron (ZOFRAN) IV Q6H PRN, oxyCODONE Q4H PRN Review of Systems: All other systems reviewed and are negative. Vital Signs: Last Filed in 24 hours Vital Signs: 24 hour Range BP: 135/72 (01/11 1030) Temp: 36.8 C (98.3 F) (01/11 1030) Pulse: 79 (01/11 1030) Respirations: 16 PER MINUTE (01/11 1030) SpO2: 100 % (01/11 1030) O2 Delivery: None (Room Air) (01/11 1030) BP: (135-157)/(45-85) Temp: [36.5 C (97.7 F)-36.9 C (98.4 F)] Pulse: [64-85] Respirations: [16 PER MINUTE-18 PER MINUTE] SpO2: [97 %-100 %] O2 Delivery: None (Room Air) Physical Exam: General: AOx3, NAD HEENT: NCAT, PERRL, EOMI, MMM Neck: supple, no JVD CV: RRR, normal S1 and S2, no murmur Lungs: CTAB, no wheezes or crackles Abdomen: soft, non-tender, non-distended, BS+ Extremities: 1+ bilateral LE pitting edema Neuro: no focal deficits Lab/Radiology/Other Diagnostic Tests: 24-hour labs: Results for orders placed or performed during the hospital encounter of (from the past 24 hour(s)) POC GLUCOSE Collection Time: 01/10/18 4:40 PM Result Value Ref Range Glucose, POC 212 (H) 70 - 100 MG/DL POC GLUCOSE Collection Time: 01/10/18 9:05 PM Result Value Ref Range Glucose, POC 191 (H) 70 - 100 MG/DL POC GLUCOSE Collection Time: 01/11/18 2:20 AM Result Value Ref Range Glucose, POC 114 (H) 70 - 100 MG/DL BASIC METABOLIC PANEL Collection Time: 01/11/18 4:02 AM Result Value Ref Range Sodium 136 (L) 137 - 147 MMOL/L Potassium 4.5 3.5 - 5.1 MMOL/L Chloride 105 98 - 110 MMOL/L CO2 25 21 - 30 MMOL/L Anion Gap 6 3 - 12 Glucose 94 70 - 100 MG/DL Blood Urea Nitrogen 23 7 - 25 MG/DL Creatinine 0.69 0.4 - 1.00 MG/DL Calcium 8.9 8.5 - 10.6 MG/DL eGFR Non >60 >60 mL/min eGFR >60 >60 mL/min CBC AND DIFF Collection Time: 01/11/18 4:02 AM Result Value Ref Range White Blood Cells 8.6 4.5 - 11.0 K/UL RBC 2.93 (L) 4.0 - 5.0 M/UL Hemoglobin 9.1 (L) 12.0 - 15.0 GM/DL Hematocrit 27.1 (L) 36 - 45 % MCV 92.5 80 - 100 FL MCH 31.1 26 - 34 PG MCHC 33.6 32.0 - 36.0 G/DL RDW 14.9 11 - 15 % Platelet Count 188 150 - 400 K/UL MPV 7.0 7 - 11 FL Neutrophils 79 (H) 41 - 77 % Lymphocytes 15 (L) 24 - 44 % Monocytes 5 4 - 12 % Eosinophils 1 0 - 5 % Basophils 0 0 - 2 % Absolute Neutrophil Count 6.80 1.8 - 7.0 K/UL Absolute Lymph Count 1.30 1.0 - 4.8 K/UL Absolute Monocyte Count 0.40 0 - 0.80 K/UL Absolute Eosinophil Count 0.10 0 - 0.45 K/UL Absolute Basophil Count 0.00 0 - 0.20 K/UL POC GLUCOSE Collection Time: 01/11/18 8:24 AM Result Value Ref Range Glucose, POC 183 (H) 70 - 100 MG/DL POC GLUCOSE Collection Time: 01/11/18 11:16 AM Result Value Ref Range Glucose, POC 110 (H) 70 - 100 MG/DL No pertinent radiology. Liban Acosta MD Internal Medicine Consult pager: [phone] Associated attestation - Jason Castro MD - 01/11/2018 4:46 PM CSTFormatting of this note may be different from the original. ATTESTATION I personally interviewed and examined the patient, performed the jackson portions of the E/M visit, discussed case with resident and concur with resident documentation of history, physical exam, assessment, and treatment plan unless otherwise noted. Blood sugars stable on home regimen. No additional recs from our standpoint. Will sign off. Please call with questions. Staff name: Jason Castro MD Date: 01/11/2018 Maryjane Telles APRN - 01/11/2018 12:34 PM CSTFormatting of this note may be different from the original. Neurosurgery Progress Note SUBJECTIVE: Up in chair during visit this AM, brightly awake and engaged. Seen later in the AM after PT with more fatigued. Discussed Rehab, patient with limited insight to her needs and is wishful for discharge to home. OBJECTIVE: Vital Signs: 24 Hour Range BP: (135-157)/(45-85) Temp: [36.5 C (97.7 F)-36.9 C (98.4 F)] Pulse: [64-85] Respirations: [16 PER MINUTE-18 PER MINUTE] SpO2: [97 %-100 %] O2 Delivery: None (Room Air) Awake, alert Able to state name, place, month Follows commands x 4, good strength Head wrap in place, left arm glasses wrapped with gauze ASSESSMENT/PLAN: 72 y.o. female s/p Left frontal craniotomy for clipping acomm aneurysm. Active Hospital Problems Diagnosis Diabetes (HCC) Hypertension Subarachnoid hemorrhage (HCC) PBD # 14; POD # 13 Left ACOMM aneurysm clipping (Dr. Mercer) Continue current care -- Keppra, Nimotop SBP < 160 mmHg Have return to oral hyperglycemic control agents. Na 136 -Na solution will start to titrate, will decrease to BID PT/OT/FREIGHT SOLICITOR-Rehab is the overall recommendation, has very limited hands on support and consistent supervision. Dispo pending Rehab placement. Prophylaxis: A)GI: PPI B) Lines: None; PIV C) Urinary Catheter: No D) Antibiotic Usage: No E) VTE: Pharmacological prophylaxis; SQ Heparin and Mechanical prophylaxis; Sequential compression device F) Restraints: Patient assessed for need for restraints. Maryjane Telles, ANIMAL SHELTER WORKER 2705 Please call [phone] with any questions.Mariah Hemphill, OT - 01/11/2018 11: 27 AM CSTFormatting of this note may be different from the original. OCCUPATIONAL THERAPY PROGRESS NOTE Patient Name: Yarely Wilma Room/Bed: [place] [address] Admitting Diagnosis: Ruptured Aneurysm Subarachnoid hemorrhage (HCC) Past Medical History: Diagnosis Date DM (diabetes mellitus) (HCC) HTN (hypertension) Mobility Progressive Mobility Level: Walk in room Distance Walked (feet): 20 ft Level of Assistance: Assist X1 Assistive Device: Walker Time Tolerated: 11-30 minutes Activity Limited By: Weakness;Fatigue Subjective Pertinent Dx per Physician: 72 y.o female who presented to OSH after fall in shower on 12/28. Developed pain in back of head and lost consciousness, nausea and vomiting post-LOC. CT head obtained with evidence of SAH, transferred to [facility] for management of traumatic vs aneurysmal SAH. 12/29: OR for Left pterional craniotomy for clipping of AComm aneurysm. Precautions: Falls Pain / Complaints: Patient demonstrates no signs of pain Objective Psychosocial Status: Willing and Cooperative to Participate Persons Present: None ADL's Where Assessed: Standing at Sink;Chair;In Bathroom Grooming Assist: Minimal Assist Grooming Deficits: Verbal Cueing;Steadying;Wash/Dry Hands;Wash/Dry Face; Brushing Hair (Cues for safety around incision when brushing hair) LE Dressing Assist: Maximum Assist LE Dressing Deficits: Don/Doff R Sock;Don/Doff L Sock Toileting Assist: Minimal Assist Toileting Deficits: Steadying Functional Transfer Assist: Minimal Assist Functional Transfer Deficits: Steadying;Toilet Transfer w/ grab bar on left; Room mobility w/ walker;Cues for safety and walker management Comment: Patient seated in chair at end of session, TABS alarm on. Activity Tolerance Endurance: 3/5 Tolerates 25-30 Minutes Exercise w/Multiple Rests Cognition Overall Cognitive Status: Impaired Social Interaction: Flat Affect Problem Solving: Decreased Judgment/Safety Education Persons Educated: Patient Barriers To Learning: Cognitive Deficits Interventions: Repetition of Instructions Teaching Methods: Verbal Instruction Patient Response: Return Demonstration Topics: Role of OT, Goals for Therapy;ADL Compensatory Techniques Goal Formulation: With Patient Assessment Assessment: Decreased ADL Status;Decreased Safe/Judg during ADL;Decreased Cognition;Decreased Endurance;Decreased Self-Care Trans;Decreased High-Level ADLs Prognosis: Good;w/Cont OT s/p Acute Discharge AM-PAC 6 Clicks Daily Activity Inpatient Putting on and taking off regular lower body clothes?: A Lot Bathing (Including washing, rinsing, drying): A Lot Toileting, which includes using toilet, bedpan, or urinal: A Little Putting on and taking off regular upper body clothing: A Little Taking care of personal grooming such as brushing teeth: A Little Eating meals?: None Daily Activity Raw Score: 17 Standardized (t-scale) score: 37.26 CMS 0-100% Score: 50.11 CMS G Code Modifier: CK Plan Treatment Interventions: ADL Retraining;Functional Transfer Training;UE Strengthing/ROM;Endurance Training;Cognitive Reorientation;Patient/Family Training;Equipment Evaluation/Education;Neuromuscular Reeducation;Compensatory Technique Education OT Frequency: 5x/week Plan for next visit: Endurance training during ADLs ADL Goals Patient Will Perform All ADL's: w/ Modified Kleberg, w/ Good Judgment/ Safety Functional Transfer Goals Pt Will Perform All Functional Transfers: Modified Independent, w/ Good Judgment /Safety OT Discharge Recommendations OT Discharge Recommendations: Inpatient Setting Equipment Recommendations: Too early to be determined Therapist: JOSH Martinez/April 0271 Date: 01/11/2018DuBridgett aiken, PT - 01/11/2018 9:08 AM CSTPHYSICAL THERAPY PROGRESS NOTE MOBILITY: Mobility Progressive Mobility Level: Walk in hallway Distance Walked (feet): 120 ft Level of Assistance: Assist X1 Assistive Device: Walker Time Tolerated: 11-30 minutes Activity Limited By: Pain SUBJECTIVE: Subjective Significant hospital events: 72 y.o. female s/p fall at home; found to have SAH from ruputured aneurrsysm; s/p Left frontal craniotomy for clipping acomm aneurysm. Mental / Cognitive Status: Alert;Oriented;To Person;To Situation;Cooperative; Follows Commands (requires encouragement to participate ) Pain: Patient has no complaint of pain;Patient does not rate pain Pain Location: Left;Hip;Back Pain Description: Aching Pain Interventions: Patient agrees to participate in therapy;Patient assisted into position of comfort Ambulation Assist: Independent Mobility in Community without Device Patient Owned Equipment: None Home Situation: Lives with Family Type of Home: House Entry Stairs: 3-5 Stairs In-Home Stairs: Able to Live on One Level BED MOBILITY/TRANSFERS: Bed Mobility/Transfers Comments: Patient up in chair upon arrival Transfer Type: Sit to Stand Transfer: Assistance Level: To/From;Bed Side Chair;Minimal Assist Transfer: Assistive Device: Roller Walker Transfers: Type Of Assistance: For Balance;For Strength Deficit;For Safety Considerations End Of Activity Status: Up in Chair;Instructed Patient to Request Assist with Mobility;Nursing Notified;Instructed Patient to Use Call Light (chair alarm activated ) BALANCE: Balance Standing Balance: Static Standing Balance;2 UE support;Minimal Assist (contact guard assist ) GAIT: Gait Gait Distance: 120 feet Gait: Assistance Level: Minimal Assist Gait: Assistive Device: Roller Walker Gait: Descriptors: Pace: Slow;Pathway deviations;Variable step length Comments: Patient ambulated 120 feet with minimal assist and roller walker. Cues for upright posture. Required encouragement to continue ambulation. Distance limited by pain. Activity Limited By: Patient Choice EDUCATION: Education Persons Educated: Patient Patient Barriers To Learning: Impaired Communication;Pain Interventions: Repetition of Instructions Teaching Methods: Verbal Instruction Patient Response: More Instruction Required Topics: Plan/Goals of PT Interventions;Mobility Progression;Safety Awareness;Up with Assist Only;Importance of Increasing Activity;Recommend Continued Therapy ASSESSMENT/PROGRESS: Assessment/Progress Impaired Mobility Due To: Decreased Strength;Impaired Balance;Safety Concerns; Decreased Activity Tolerance Assessment/Progress: Should Improve w/ Continued PT AM-PAC 6 Clicks Basic Mobility Inpatient Turning from your back to your side while in a flat bed without using bed rails : None Moving from lying on your back to sitting on the side of a flatbed without using bedrails : A Little Moving to and from a bed to a chair (including a wheelchair): A Little Standing up from a chair using your arms (e.g. wheelchair, or bedside chair): A Little To walk in hospital room: A Little Climbing 3-5 steps with a railing: A Lot Raw Score: 18 Standardized (T-scale) Score: 41.05 Basic Mobility CMS 0-100%: 40.47 CMS G Code Modifier for Basic Mobility: CK GOALS: Goals Goal Formulation: With Patient Time For Goal Achievement: 7 days Pt Will Go Supine To/From Sit: w/ Stand By Assist Pt Will Transfer Sit to Stand: w/ Stand By Assist Pt Will Ambulate: Greater than 200 Feet, w/ No Device, w/ Stand By Assist Pt Will Go Up / Down Stairs: 3-5 Stairs, w/ Minimal Assist PLAN: Plan Treatment Interventions: Mobility Training;Strengthening;Balance Activities Plan Frequency: 5 Days per Week Comments: increase gait distance; determine most appropriate assistive device; try stairs; test balance RECOMMENDATIONS: PT Discharge Recommendations PT Discharge Recommendations: Inpatient Setting Equipment Recommendations: Roller Walker Patient requires the use of a walker with wheels to complete ADLs in the home including meal preparation, ambulation the bathroom for toileting, bathing and grooming, and safe home mobility. Patient is unable to complete these ADL s with a cane or crutch. Therapist: Bridgett Mcmahan, PT Date: 01/11/2018 DeangelomariaelenaStefanie delvalle - 01/11/2018 8:07 AM FOOD PRESERVATION SCIENTIST CLINICAL NUTRITION Clinical Nutrition Follow-Up Summary Nutrition Assessment of Patient: Malnutrition Assessment: Does not meet criteria Current Oral Intake: Adequate Estimated Calorie Needs: 1635 (25 kcal/kg desired wt 65.4kg) Estimated Protein Needs: 78-85 (1.2-1.3 gm/kg desired wt 65.4kg) Oral Diet Order: Diabetic 7468-1955 Kcal/day (60 g Carb/meal, 30 g Carb/HS snack ) Oral Supplement: Boost Glucose Control, BID 72 yo F with PMH of DM (A1c 6.7%) and HTN who is being managed in Neuro ICU s/p craniectomy and aneurysm repair on 12/29 after presenting at outside hospital with SAH 12/28. See 01/04 note for subjective diet information and assessment. Pt has been eating well on a DM diet, ~100% of all meals and is drinking boost glucose control. Pt denies c/o acute GI distress. No pressure injuries present. Today pt kindly declines review of DM/heart healthy diet, stating she feels she has a good understanding of recommendations. Pt is no longer at acute nutritional risk. Recommendation: Continue diet as ordered. Nutrition Diagnosis: RESOLVED Nutrition Diagnosis: Inadequate protein-energy intake (improving) Etiology: reduced appetite d/t SAH Signs & Symptoms: (improved x 3 days with Boost Glucose Control bid) Goals: Patient to consume >85% of meals/supplements Time Frame: Throughout Stay Status: Met Rajani Milton RD, LD Pager: [phone] Inna Perkins MD - 01/10/2018 7:31 PM CSTPatient now off Florinef. Home glucovance started. Lantus discontinued. Continue sliding scale insulin. Patricia Bear RN - 01/10/2018 12:56 PM CSTPatient arrived on unit via cart accompanied by ICU staff. Pt transferred to chair with assistance. Assessment completed, refer to flowsheet for details. Orders reviewed and implemented as appropriate.Oriented to surroundings, call light within reach. Plan of care reviewed. Will continue to monitor and assess.Denzel Mi MD - 01/10/2018 9: 01 AM CSTFormatting of this note may be different from the original. Neurosurgery Progress Note SUBJECTIVE: Up in chair this AM. No issues. OBJECTIVE: Vital Signs: 24 Hour Range BP: (138-163)/(42-70) Temp: [36.7 C (98.1 F)-37.4 C (99.3 F)] Pulse: [66-74] Respirations: [17 PER MINUTE-18 PER MINUTE] SpO2: [97 %-100 %] O2 Delivery: None (Room Air) Awake, alert Able to state name, place, month Follows commands x 4, good strength Head wrap in place, left arm glasses wrapped with gauze ASSESSMENT/PLAN: 72 y.o. female s/p Left frontal craniotomy for clipping acomm aneurysm. Active Hospital Problems Diagnosis Diabetes (HCC) Hypertension Subarachnoid hemorrhage (HCC) PBD # 13; POD # 12 Left ACOMM aneurysm clipping (Dr. Mercer) Continue current care -- Keppra, Nimotop SBP < 160 mmHg Na 135 -Na solution, PT/OT/FREIGHT SOLICITOR-making steady progress, will need consistent supervision at home. Continue to monitor for home vs rehab. PT TODAY Prophylaxis: A)GI: PPI B) Lines: None; PIV C) Urinary Catheter: No D) Antibiotic Usage: No E) VTE: Pharmacological prophylaxis; SQ Heparin and Mechanical prophylaxis; Sequential compression device F) Restraints: Patient assessed for need for restraints. Denzel Mi MD [id number] Please call [phone] with any questions.Denzel Mi MD - 01/09/2018 7: 34 AM CSTFormatting of this note may be different from the original. Neurosurgery Progress Note SUBJECTIVE: Up in chair this AM, eating breakfast. OBJECTIVE: Vital Signs: 24 Hour Range BP: (129-164)/(49-78) Temp: [36.5 C (97.7 F)-37.2 C (99 F)] Pulse: [72-83] Respirations: [15 PER MINUTE-16 PER MINUTE] SpO2: [97 %-100 %] O2 Delivery: None (Room Air) Awake, alert Able to state name, place, month Follows commands x 4, good strength Head wrap in place, left arm glasses wrapped with gauze on rounds. Incision c/d/i with dermabond and nylons ASSESSMENT/PLAN: 72 y.o. female s/p Left frontal craniotomy for clipping acomm aneurysm. Active Hospital Problems Diagnosis Diabetes (HCC) Hypertension Subarachnoid hemorrhage (HCC) PBD # 12; POD # 11 Left ACOMM aneurysm clipping (Dr. Mercer) Continue current care --Keppra, Nimotop SBP < 160 mmHg Na 134 -Na solution, PT/OT/FREIGHT SOLICITOR-making steady progress, will need consistent supervision at home. Continue to monitor for home vs rehab. IRF vs home Prophylaxis: A)GI: PPI B) Lines: None; PIV C) Urinary Catheter: No D) Antibiotic Usage: No E) VTE: Pharmacological prophylaxis; SQ Heparin and Mechanical prophylaxis; Sequential compression device F) Restraints: Patient assessed for need for restraints. Denzel Mi MD [id number] Please call [phone] with any questions.Geoffrey Pantoja MD - 01/08/2018 2:40 PM CSTFormatting of this note may be different from the original. General Progress Note Name: Yarely Dillon Today's Date: 01/08/2018 Admission Date: 12/29/2017 LOS: 10 days Assessment/Plan: Ms. Dillon is a 72 yo female with a history of HTN and TIIDM who initially presented as OSH transferfor SAH. Internal Medicine is consulted for assist in returning to home diabetes medication for discharge. #. TIIDM - was previously on glyburide and metformin prior to admission with HgbA1C 6.7% - was started florinef, lantus and correction factor on admission - suspect patient may have worsening glucose tolerance with decadron and now florinef - discussed with primary team who plans to try and wean off florinef - will continue insulin for now and will restart harbor tug captain metformin and glyburide if florinef remains discontinued #. HTN - currently holding harbor tug captain spironolactone/HCTZ. - continue methyldopa and nimodipine per primary team #. SAH - s/p craniotomy and clipping - keppra - management per primary team Subjective Yarely Dillon is a 72 y.o. female. No acute events overnight. denies n,v,f,s, c. Medications Scheduled Meds: docusate (COLACE) capsule 100 mg 100 mg Oral BID heparin (porcine) PF syringe 5,000 Units 5,000 Units Subcutaneous Q8H insulin aspart (NOVOLOG FLEXPEN) injection PEN 0-28 Units 0-28 Units Subcutaneous ACHS insulin glargine (LANTUS SOLOSTAR, BASAGLAR) injection PEN 16 Units 16 Units Subcutaneous QDAY levETIRAcetam (KEPPRA) tablet 500 mg 500 mg Oral BID melatonin tablet 5 mg 5 mg Oral QHS methyldopa (ALDOMET) tablet 250 mg 250 mg Oral BID milk of magnesia (CONC) oral suspension 10 mL 10 mL Oral QDAY niMODipine (NIMOTOP) capsule 60 mg 60 mg Oral Q4H* senna/docusate (SENOKOT-S) tablet 1 tablet 1 tablet Oral BID sodium chloride(#) inj for po solution 34 mEq 34 mEq Oral Q6H Continuous Infusions: PRN and Respiratory Meds:acetaminophen Q4H PRN OR acetaminophen Q4H PRN, bisacodyl QDAY PRN, ondansetron (ZOFRAN) IV Q6H PRN, oxyCODONE Q4H PRN Review of Systems: A 14 point review of systems was negative except for: Constitutional: positive for fatigue Objective: Vital Signs: Last Filed Vital Signs: 24 Hour Range BP: 141/60 (01/08 1200) Temp: 37.1 C (98.8 F) (01/08 1200) Pulse: 75 (01/08 1200) Respirations: 15 PER MINUTE (01/08 1200) SpO2: 100 % (01/08 1200) O2 Delivery: None (Room Air) (01/08 1200) SpO2 Pulse: 75 (01/08 1200) BP: (141-163)/(46-64) Temp: [36.8 C (98.2 F)-37.1 C (98.8 F)] Pulse: [73-80] Respirations: [15 PER MINUTE-16 PER MINUTE] SpO2: [96 %-100 %] O2 Delivery: None (Room Air) Intensity Pain Scale 0-10 (Pain 1): 4 (01/08/18 0500) Vitals: 01/04/18 0800 01/06/18 0300 01/07/18 0300 Weight: 102.8 kg (226 lb 10.1 oz) 102.1 kg (225 lb 1.4 oz) 101.8 kg (224 lb 6.9 oz) Intake/Output Summary: (Last 24 hours) Intake/Output Summary (Last 24 hours) at 01/08/18 1440 Last data filed at 01/08/18 1200 Gross per 24 hour Intake 1970 ml Output 2750 ml Net -780 ml Stool Occurrence: 1 Physical Exam General: Alert and oriented, in no apparent distress Skin/Hair/Nails: Skin: warm, normal turgor, pink color, no cyanosis, pallor or jaundice, HEENT: Eyes: PERRL, sclera white, conjuctivae pink Ears: acuity good to whispered voice Nose: nasal mucosa pink Mouth: oral mucosa moist and pink, dentition good, Lymph nodes: no auricular, cervical, submandibular, LAD Thorax and Lungs: normal AP diameter. Lungs:breath sounds clear bilaterally. no wheezes, rhonchi, crackles. Cardiovascular: Regular rhythm,crisp S1/S2. No S3, S4. No murmurs, rubs or gallops. No heaves, liftsor thrills. No JVD or HJR. Abdomen: soft, non-tender to palpation, non-distended. active bowel sounds. Ext: warm and without edema. calves supple and non-tender Neuro: Mental status: alert and cooperative. Thought coherent, oriented to person, place and time CN: II-XII intact Lab Review 24-hour labs: Results for orders placed or performed during the hospital encounter of (from the past 24 hour(s)) POC GLUCOSE Collection Time: 01/07/18 5:54 PM Result Value Ref Range Glucose, POC 201 (H) 70 - 100 MG/DL POC GLUCOSE Collection Time: 01/07/18 9:37 PM Result Value Ref Range Glucose, POC 167 (H) 70 - 100 MG/DL POC GLUCOSE Collection Time: 01/08/18 5:59 AM Result Value Ref Range Glucose, POC 137 (H) 70 - 100 MG/DL BASIC METABOLIC PANEL Collection Time: 01/08/18 6:08 AM Result Value Ref Range Sodium 134 (L) 137 - 147 MMOL/L Potassium 4.0 3.5 - 5.1 MMOL/L Chloride 105 98 - 110 MMOL/L CO2 21 21 - 30 MMOL/L Anion Gap 8 3 - 12 Glucose 137 (H) 70 - 100 MG/DL Blood Urea Nitrogen 22 7 - 25 MG/DL Creatinine 0.72 0.4 - 1.00 MG/DL Calcium 8.7 8.5 - 10.6 MG/DL eGFR Non >60 >60 mL/min eGFR >60 >60 mL/min CBC AND DIFF Collection Time: 01/08/18 6:08 AM Result Value Ref Range White Blood Cells 8.6 4.5 - 11.0 K/UL RBC 3.35 (L) 4.0 - 5.0 M/UL Hemoglobin 9.9 (L) 12.0 - 15.0 GM/DL Hematocrit 30.5 (L) 36 - 45 % MCV 90.9 80 - 100 FL MCH 29.4 26 - 34 PG MCHC 32.3 32.0 - 36.0 G/DL RDW 14.4 11 - 15 % Platelet Count 217 150 - 400 K/UL MPV 6.5 (L) 7 - 11 FL Neutrophils 70 41 - 77 % Lymphocytes 22 (L) 24 - 44 % Monocytes 7 4 - 12 % Eosinophils 1 0 - 5 % Basophils 0 0 - 2 % Absolute Neutrophil Count 6.00 1.8 - 7.0 K/UL Absolute Lymph Count 1.90 1.0 - 4.8 K/UL Absolute Monocyte Count 0.60 0 - 0.80 K/UL Absolute Eosinophil Count 0.10 0 - 0.45 K/UL Absolute Basophil Count 0.00 0 - 0.20 K/UL POC GLUCOSE Collection Time: 01/08/18 8:28 AM Result Value Ref Range Glucose, POC 138 (H) 70 - 100 MG/DL POC GLUCOSE Collection Time: 01/08/18 11:42 AM Result Value Ref Range Glucose, POC 231 (H) 70 - 100 MG/DL Point of Care Testing (Last 24 hours) Glucose: (!) 137 (01/08/18 0608) POC Glucose (Download): (!) 231 (01/08/18 1142) Radiology and other Diagnostics Review: Pertinent radiology reviewed. Geoffrey Pantoja MD Pager Associated attestation - Mikayla Wilkerson MD - 01/09/2018 12:08 AM CSTFormatting of this note may be different from the original. ATTESTATION- late entry. Pt seen on 01.08.18 I personally performed the jackson portions of the E/M visit, discussed case with resident and concur with resident documentation of history, physical exam, assessment, and treatment plan unless otherwise noted. Staff name: Mikayla Wilkerson MD Date: 01/09/2018 Bridgett Mcmahan, PT - 01/08/2018 2:40 PM CSTPHYSICAL THERAPY NOTE Attempted to see patient for Physical Therapy this date. Patient leaving bathroom with roller walkerupon arrival and and adamantly declined ambulation at his time. Reports that she just ambulated withnursing staff and that she is too fatigued. Provided maximal encouragement but patient continued to decline. Will follow up and treat as able and indicated. Therapist: Bridgett Mcmahan, PT Date: 01/08/2018 Mariah Hemphill, OT - 01/08/2018 1:15 PM CSTOCCUPATIONAL THERAPY NO TREATMENT NOTE The patient was not seen due to: Patient not available. Patient ambulating in dai with nursing staff, already complete ADLs with nursing staff today. Per nursing aid, patient participate in bathing self. Will continue to follow and provide OT intervention as indicated. Therapist: Mariah Hemphill OTR/L [id number] Date: 01/08/2018Maryjane Telles APRN - 01/08/2018 8:54 AM CSTFormatting of this note may be different from the original. Neurosurgery Progress Note SUBJECTIVE: Up in chair this AM, seen with Neurosurgery Team. OBJECTIVE: Vital Signs: 24 Hour Range BP: (130-163)/(46-65) Temp: [36.8 C (98.2 F)-37.1 C (98.8 F)] Pulse: [68-80] Respirations: [17 PER MINUTE] SpO2: [96 %-100 %] O2 Delivery: None (Room Air) Awake and alert Able to state name, place, month Follows commands x [address], left arm glasses wrapped with gauze on rounds. Incision c/d/i with dermabond and nylons ASSESSMENT/PLAN: 72 y.o. female s/p Left frontal craniotomy for clipping acomm aneurysm. Active Hospital Problems Diagnosis Diabetes (HCC) Hypertension Subarachnoid hemorrhage (HCC) PBD # 11; POD # 10 Left ACOMM aneurysm clipping (Dr. Mercer) Continue current care --Keppra, Nimotop SBP < 160 mmHg Na 134 -Na solution, stop florinef this AM and trend Na will recheck this evening. 500ml IVF NS bolus this AM PT/OT/FREIGHT SOLICITOR-making steady progress, will need consistent supervision at home. Continue to monitor for home vs rehab. Floor status. Discharge first of next week. Prophylaxis: A)GI: PPI B) Lines: None; PIV C) Urinary Catheter: No D) Antibiotic Usage: No E) VTE: Pharmacological prophylaxis; SQ Heparin and Mechanical prophylaxis; Sequential compression device F) Restraints: Patient assessed for need for restraints. Maryjane Telles APRN [id number] Please call [phone] with any questions.Sindy Baldwin, RN - 01/07/2018 11: 32 PM CSTPt not able to get comfortable at this time. Complains of 6 out of 10 back pain. Pt gotten up to thechair. Refusing any pain medication at this time. Will continue to monitor and offer routinely.Marion Kramer, RD - 2017 4:41 PM FOOD PRESERVATION SCIENTIST CLINICAL NUTRITION Clinical Nutrition Follow-Up Summary Nutrition Assessment of Patient: Malnutrition Assessment: Does not meet criteria Current Oral Intake: Adequate Estimated Calorie Needs: 1635 (25 kcal/kg desired wt 65.4kg) Estimated Protein Needs: 78-85 (1.2-1.3 gm/kg desired wt 65.4kg) Oral Diet Order: Diabetic 1768-3431 Kcal/day (60 g Carb/meal, 30 g Carb/HS snack ) Oral Supplement: Boost Glucose Control, BID Intake (calories) Daily Average : 1838 kilocalories (3 day po ave 01/04-; more than met goal) Intake (protein) Daily Average : 100 grams (3 day po ave 01/04-; more than met goal) Comment: 72 yo F with PMH of DM (A1c 6.7%) and HTN who is being managed in Neuro ICU s/p craniectomyand aneurysm repair on 12/29 after presenting at outside hospital with SAH 12/28. See 01/04 note for subjective diet information and assessment. Pt more alert this RD visit and reports allergy/intolerance to chocolate and green beans, can have them but large amounts can causing N/V . Boost Glucose controlordered breakfast and dinner. Pt still not appropriate for DM/heart healthy diet education today as not feeling well and trying to rest, will offer at f/u visit if appropriate. 3 day po calorie count 01/04- more than met kcal/protein goals with ave of 2 Boost Glucose Control today. Recommendation: Continue to encourage po intake on appropriate 60g/meal consistent carb diet with Boost Glucose Control bid. Intervention / Plan: clarified Food allergy/intolerance to chocolate/green beans with pt calorie count completed monitor po intake, wt trends, labs, meds, gI status Nutrition Diagnosis: Nutrition Diagnosis: Inadequate protein-energy intake (improving) Etiology: reduced appetite d/t SAH Signs & Symptoms: (improved x 3 days with Boost Glucose Control bid) Goals: Patient to consume >85% of meals/supplements Time Frame: Throughout Stay Status: Met;Ongoing MERCEDEZ Alvarez Caitlin - 01/07/2018 3:07 PM CSTSPEECH-LANGUAGE PATHOLOGY DAILY TREATMENT NOTE Patient seen 1x this date. Documentation reflects all daily treatment sessions. SUMMARY OF THERAPY SESSION: F/u this date to ensure for diet tolerance and ongoing cognitive-communicative evaluation. RN reports diet tolerance this date. Will continue to follow, please see details below. RECOMMENDATIONS: 1:Continue w/ regular solids &thin liquids given 100% supervision. If overt s/s aspiration observed please cease p.o. Intake until pt's swallow can be re-evaluated by this department.Good oral care to minimize pt's risk of aspirating bacteria in oral secretions. Pills one at a time. 2: Recommend consistent supervisionupon discharge as anticipate patient's impaired safety awareness and/or problem solving &communication will impact their ability to call for help. 3. Services at next level of care Swallow Strategies: Supervision During Meals, Small Bites/Sips, Slow Rate of Intake; pt must be fully alert Goal : The pt will tolerate a regular diet w/ thin liquids w/ < 5% overt s/s aspiration. Met Comment: RN reports diet tolerance this date. Discharge this goal as met Goal : The pt will participate in cognitive-communicative evaluation given mod cues to maintain attention. Met Comment: Immediate 5 word recall: 3/5 Number repetition: 1/1, reversed: 0/1 Abstraction from MOCA: 1/2, Problem solving: pt able to state appropriate steps with prompting incase of fire, pt unable to provide responses for missed medications despite verbal prompting, limited thought flexibility appreciated. Pt oriented to month, year, place, and city: not oriented to date and [place]. Category naming: fruits: 3/3, cold objects 3/3, things with holes: 0/3 Continue to address this goal PLAN / RECOMMENDATIONS: Continue treatment 1-3x/week Therapist: Sylvia Antony M.A. [facility]-[employer] Pager: [phone] Weekend Acute Pager: [phone] Date: 01/07/2018 Liliana Nobles, PT - 01/07/2018 2:11 PM CSTPHYSICAL THERAPY PROGRESS NOTE MOBILITY: Mobility Progressive Mobility Level: Walk laps Distance Walked (feet): 300 ft Level of Assistance: Assist X1 Assistive Device: Walker Time Tolerated: 11-30 minutes Activity Limited By: Weakness SUBJECTIVE: Subjective Significant hospital events: 72 y.o. female s/p fall at home; found to have SAH from ruptured aneurysms; s/p Left frontal craniotomy for clipping acomm aneurysm. Mental / Cognitive Status: Alert;Cooperative Pain: Patient has no complaint of pain Comments: PMH: parkinson's disease; diabetes, HTN, BED MOBILITY/TRANSFERS: Bed Mobility/Transfers Transfer Type: Sit to Stand Transfer: Assistance Level: To/From;Bed Side Chair;Independent Transfer: Assistive Device: None Transfers: Type Of Assistance: Verbal Cues;For Balance;For Strength Deficit;For Safety Considerations End Of Activity Status: Up in Chair;Nursing Notified;Instructed Patient to Request Assist with Mobility;Instructed Patient to Use Call Light (TABs alarm in seat) GAIT: Gait Gait Distance: 350 feet Gait: Assistance Level: Minimal Assist (CGA) Gait: Assistive Device: Roller Walker Gait: Descriptors: Pace: Slow;Variable step length;Forward trunk flexion; Pathway deviations Activity Limited By: Patient Choice Patient climbed 6 steps with bilateral hand rails; and minimal assist. EDUCATION: Education Persons Educated: Patient Patient Barriers To Learning: Confusion;Impaired Communication Interventions: Repetition of Instructions Teaching Methods: Verbal Instruction Patient Response: More Instruction Required Topics: Plan/Goals of PT Interventions;Mobility Progression;Safety Awareness;Up with Assist Only;Importance of Increasing Activity;Recommend Continued Therapy ASSESSMENT/PROGRESS: Assessment/Progress Impaired Mobility Due To: Decreased Strength;Impaired Balance;Safety Concerns; Decreased Activity Tolerance Assessment/Progress: Should Improve w/ Continued PT AM-PAC 6 Clicks Basic Mobility Inpatient Turning from your back to your side while in a flat bed without using bed rails : A Little Moving from lying on your back to sitting on the side of a flatbed without using bedrails : A Little Moving to and from a bed to a chair (including a wheelchair): A Little Standing up from a chair using your arms (e.g. wheelchair, or bedside chair): A Little To walk in hospital room: A Little Climbing 3-5 steps with a railing: A Little Raw Score: 18 Standardized (T-scale) Score: 41.05 Basic Mobility CMS 0-100%: 40.47 CMS G Code Modifier for Basic Mobility: CK GOALS: Goals Goal Formulation: With Patient Time For Goal Achievement: 7 days Pt Will Go Supine To/From Sit: w/ Stand By Assist Pt Will Transfer Sit to Stand: w/ Stand By Assist Pt Will Ambulate: Greater than 200 Feet, w/ No Device, w/ Stand By Assist Pt Will Go Up / Down Stairs: 3-5 Stairs, w/ Minimal Assist PLAN: Plan Treatment Interventions: Mobility Training;Strengthening;Balance Activities Plan Frequency: 5 Days per Week Comments: increase gait distance with RW; test balance - consider mobility schedule to promote out of bed activity. RECOMMENDATIONS: PT Discharge Recommendations PT Discharge Recommendations: Home with Assistance;versus;Inpatient Setting Equipment Recommendations: Nilda Solorzano Therapist: Liliana Nobles PT Date: 01/07/2018 Tobias Chapman MD - 01/07/2018 7:00 AM CSTFormatting of this note may be different from the original. Neurosurgery Progress Note SUBJECTIVE: No acute concerns. OBJECTIVE: Vital Signs: 24 Hour Range BP: (105-170)/(38-95) Temp: [36.6 C (97.8 F)-37.1 C (98.7 F)] Pulse: [56-91] Respirations: [7 PER MINUTE-33 PER MINUTE] SpO2: [94 %-100 %] O2 Delivery: None (Room Air) Sitting up in bed. Able to state name, place, month Follows commands x [address] Incision c/d/i with dermabond and nylons ASSESSMENT/PLAN: 72 y.o. female s/p Left frontal craniotomy for clipping acomm aneurysm. Active Hospital Problems Diagnosis Diabetes (HCC) Hypertension Subarachnoid hemorrhage (HCC) PBD # 10; POD # 9 Left ACOMM aneurysm clipping (Dr. Mercer) Continue current care --Keppra, Nimotop SBP < 180 mmHg Na 136 - florinef, Na solution 1:1 NS replacement Daily TCDs PT/OT/FREIGHT SOLICITOR Discharge planning -- Floor today; rehab consult pending Prophylaxis: A)GI: PPI B) Lines: None; PIV C) Urinary Catheter: No D) Antibiotic Usage: No E) VTE: Pharmacological prophylaxis; SQ Heparin and Mechanical prophylaxis; Sequential compression device F) Restraints: Patient assessed for need for restraints. Tobias Chapman MD [id number] Please call [phone] with any questions.Nereida Garner, ANIMAL SHELTER WORKER - 2017 6:23 AM CSTFormatting of this note may be different from the original. Neuro Critical Care Progress Note Yarely Dillon Admission Date: 12/29/2017 LOS: 9 days Full Code ASSESSMENT/PLAN Patient Active Problem List Diagnosis Date Noted Diabetes (HCC) 12/29/2017 Hypertension 12/29/2017 Subarachnoid hemorrhage (HCC) 12/29/2017 Yarely Byrd a 72 y.o.femalewith PMH DM, HTN who presented to OSH after fall in shower atapproximately 2014 on 12/28. Developed pain in back of head , twisted to turn water off and lost consciousness. Woke up less than 10min after event, got herself up and got her . CT head obtained with evidence of SAH, transferred to [facility] for management. AComm aneurysm clipped in OR on 12/29. Hospital and ICU course: 12/29: Transfer from [place], [place] with SAH. Neurologically intact. S/p craniotomy for aneurysm repair 12/30: Patient is confused and impulsive, but no focal neuro deficits. Telemetry with PVCs, negative troponin. Lytes replaced 12/31: Less verbal today but no focal deficits. Decadron x24 hours. 01/01: More awake, oriented x2 01/02: Continued impulsivity, pulling at surgical sutures requiring mittens, restraint, CO. 01/03: No acute events overnight. 01/05: Agitation overnight. Risperdal 0.5mg x1 given 01/06: NAEO, added back 1:1 fluid replacement in the setting of hemoconcentration and negative I&O status today Neuro: Subarachnoid hemorrhage, aneurysmal S/p craniotomy, ACOMM aneurysm repair 12/29; 1 MF 3 Cerebral Angio 12/29: 1) A-comm artery aneurysm measuring 6.03 mm in height, 5.11 mm in width, and 2.78 mm at the neck with a moderate size Espinoza's point 2) Right P-comm artery aneurysm measuring 3.27 mm in width, 3.11 mm in height, and 2.76 mm at the neck. 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 - PRN oxycodone, tylenol available - Monitor for delirium- neuro checks to Q2H and scheduled melatonin qHS Cardiac Hx HTN - Holding [employer]AND[employer] GE[employer] INSPECTOR spironolactone/HCTZ 25-25mg QD - Continue [employer] INSPECTOR Methyldopa 250 mg BID - Prn labetalol, hydralazine for BP goal - SBP goal <170, MAP goal >65 Respiratory: - No acute issues, on RA - Spo2 goal >92% GI - Diabetic diet, will monitor PO intake, Boost shakes BID - Bowel regimen, ensure daily BM. Suppository prn - Last BM 01/06 Heme: Anemia, likely secondary to blood loss - Hb 10.0 Plt 176 - hemo-concentrated - SQ heparin DVT ppx - Assess for coagulopathy, maintain platelets above 100k, INR <1.5 ID: - Afebrile, WBC 7.5 - UA 12/31 no e/o infection - Aim for normothermia, Temp <38.3 celsius, normothermia protocol if febrile Renal: Elevated BUN, possible hypovolemia - Cr 0.72, BUN 21 - Voiding spontaneously - Aim for euvolemia Intake/Output Summary (Last 24 hours) at 01/07/18 0623 Last data filed at 01/07/18 0500 Gross per 24 hour Intake 4450 ml Output 2280 ml Net 2170 ml Endocrine: DM, hyperglycemia - A1C 6.7% - Holding [employer]OR metformin-glyburide 2.5-500 1 tab BID - Blood glucose goal 100-180mg/dl - HDCF - Glucose 150 on am chemistry - Lantus 20 units daily increased 01/07 FEN:hyponatremia - hyponatremia improving - Electrolyte replacement protocol in place - Magnesium goal >2.0, i-Dennis goal > 1.0, Potassium goal >4.0 mEq/L Prophylaxis Review: Prophylaxis: A) GI: None B) Lines:Peripheral IV only C) Urinary Catheter:no velázquez catheter D) Antibiotic Usage:No E) VTE:SCDs, SQ heparin F) Isolation: None G)Seizures: Keppra for ppx I) Restraints: Patient assessed for need for restraints. Disposition/Family:NEICU monitoring Primary service: [facility] Consults:Neurosurgery SUBJECTIVE Yarely Dillon is a 72 y.o. female. Overnight Events: No new events noted. Possibly some delirium, patient told us that she was watching "the mermaids grabbing the octopuses off the floor" on the Olymp. OBJECTIVE Vital Signs: Last Filed Vital Signs: 24 Hour Range BP: 105/56 (01/07 600) Temp: 37.1 C (98.7 F) (01/07 0400) Pulse: 76 (01/07 600) Respirations: 13 PER MINUTE (01/07 600) SpO2: 97 % (01/07 600) O2 Delivery: None (Room Air) (01/07 0500) Weight: 101.8 kg (224 lb 6.9 oz) (01/07 030) BP: (105-170)/(38-95) Temp: [36.6 C (97.8 F)-37.1 C (98.7 F)] Pulse: [56-91] Respirations: [7 PER MINUTE-33 PER MINUTE] SpO2: [94 %-100 %] O2 Delivery: None (Room Air) Intensity Pain Scale 0-10 (Pain 1): (not recorded) Vitals: 01/04/18 0800 01/06/18 0300 01/07/18 0300 Weight: 102.8 kg (226 lb 10.1 oz) 102.1 kg (225 lb 1.4 oz) 101.8 kg (224 lb 6.9 oz) Artificial airway: None Ventilator/ Respiratory Therapy: No Vent weaning trial: Not applicable Lines: Peripheral Line Drains: None Intake/Output Summary: (Last 24 hours) Intake/Output Summary (Last 24 hours) at 01/07/18 0623 Last data filed at 01/07/18 0500 Gross per 24 hour Intake 4450 ml Output 2280 ml Net 2170 ml Stool Occurrence: 1 Physical Exam: Blood pressure 105/56, pulse 76, temperature 37.1 C (98.7 F), height 165.1 cm (65"), weight 101.8 kg (224 lb 6.9 oz), SpO2 97 %. Karl coma score: E: 4 - opens eyes spontaneously M: 6 - Follows simple motor commands V: 5 - Alert and oriented Neuro: Mental Status: Alert to lethargic. Oriented x 4. Follows commands Cranial Nerves: - Pupil exam: Size: 3mm Reactivity: brisk - EOM: intact - Grimace/facial movement: present Motor: Follows commands in all extremities RUE: Strength: 4/5 RLE: Strength: 4/5 LUE: Strength: 4/5 LLE: Strength: 4/5 Sensory: normal Lungs: clear to auscultation bilaterally Pulmonary: Respiratory status: Stable Heart: regular rate and rhythm, S1, S2 normal, no murmur, click, rub or gallop Abdomen: soft, non-tender. Bowel sounds normal. No masses, no organomegaly Extremities: extremities normal, atraumatic, no cyanosis or edema Skin: Skin color, texture, turgor normal. No rashes or lesions Point of Care Testing: (Last 24 hours) Glucose: (!) 150 (01/07/18 0334) POC Glucose (Download): (!) 157 (01/06/18 2204) Lab Review: Pertinent labs reviewed Radiology and Other Diagnostic Procedures Review: Pertinent radiologic and diagnostic procedures reviewed. Nereida Garner, SUSSY Date: 01/07/[phone] Jermaine Chua MD - 01/06/2018 10:35 PM CSTFormatting of this note may be different from the original. Neuro Critical Care Progress Note Yarely Dillon Admission Date: 12/29/2017 LOS: 8 days Full Code ATTESTATION This note is associated with the NEICU team note dated today. Date of Service: 01/06/2018 72 year old female with past medical history significant for HTN, DM, aneurysm clipping. Some lethargy, high urine output and hemoconcentration last night, now positive on fluids with 1:1 replacement. TCD's stable, continue vasospasm watch. Past Medical History: Diagnosis Date DM (diabetes mellitus) (HCC) HTN (hypertension) I have seen, personally fully evaluated, and discussed patient with the NEICU team. I agree with the objective findings and agree with the plan of care as documented by the resident with the exceptions noted. The patient is critically ill with sah. Active hospital problems include: Active Problems: Diabetes (HCC) Hypertension Subarachnoid hemorrhage (HCC) I spent 45 minutes (excluding time spent performing or supervising any procedures) providing and personally directing critical care services including -review of serial neurologic, hemodynamic, respiratory, telemetry, laboratory and imaging data -management of fluids/electrolytes, antibiotics, vasoactive medications, gas exchange/mechanical ventilation, sepsis protocol, ICU prophylaxis, and ICU core measures -pain/sedation/delirium management -medication review and management -organization and coordination of care with patient (or surrogate), ICU team and consulting services. -directing the formulation of the overall plan of care outlined below. Dispo: This patient is critically ill with dysfunction of at least one organ system and is at risk for life threatening deterioration necessitating complex medical decision making and ongoing provisionof ICU care. Staff name: Jermaine Chua MD Date: 01/06/2018 ASSESSMENT/PLAN Patient Active Problem List Diagnosis Date Noted Diabetes (HCC) 12/29/2017 Hypertension 12/29/2017 Subarachnoid hemorrhage (HCC) 12/29/2017 Yarely Byrd a 72 y.o.femalewith PMH DM, HTN who presented to OSH after fall in shower at[place] 2014 on 12/28. Developed pain in back of head , twisted to turn water off and lost consciousness. Woke up less than 10min after event, got herself up and got her . CT head obtained with evidence of SAH, transferred to [facility] for management. AComm aneurysm clipped in OR on 12/29. Hospital and ICU course: 12/29: Transfer from [facility] [place] with SAH. Neurologically intact. S/p craniotomy for aneurysm repair 12/30: Patient is confused and impulsive, but no focal neuro deficits. Telemetry with PVCs, negative troponin. Lytes replaced 12/31: Less verbal today but no focal deficits. Decadron x24 hours. 01/01: More awake, oriented x2 01/02: Continued impulsivity, pulling at surgical sutures requiring mittens, restraint, CO. 01/03: No acute events overnight. 01/05: Agitation overnight. Risperdal 0.5mg x1 given 01/06: NAEO, added back 1:1 fluid replacement in the setting of hemoconcentration and negative I&O status today Neuro: Subarachnoid hemorrhage, aneurysmal S/p craniotomy, ACOMM aneurysm repair 12/29; HH 1 MF 3 Cerebral Angio 12/29: 1) A-comm artery aneurysm measuring 6.03 mm in height, 5.11 mm in width, and 2.78 mm at the neck with a moderate size Espinoza's point 2) Right P-comm artery aneurysm measuring 3.27 mm in width, 3.11 mm in height, and 2.76 mm at the neck. 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 - PRN oxycodone, tylenol available - Monitor for delirium- neuro checks to Q2H and scheduled melatonin qHS Cardiac Hx HTN - Holding [employer] INSPECTOR spironolactone/HCTZ 25-25mg QD - Continue [employer]PECTOR Methyldopa 250 mg BID - Prn labetalol, hydralazine for BP goal - SBP goal <170, MAP goal >65 Respiratory: - No acute issues, on RA - Spo2 goal >92% GI - Diabetic diet, will monitor PO intake, Boost shakes BID - Calorie count - pending - Bowel regimen, ensure daily BM. Suppository prn - Last BM 01/04 Heme: Anemia, likely secondary to blood loss - Hb 9.3, Plt 163 - hemo-concentrated - SQ heparin DVT ppx - Assess for coagulopathy, maintain platelets above 100k, INR <1.5 ID: - Afebrile, WBC 8.2 - UA 12/31 no e/o infection - Aim for normothermia, Temp <38.3 celsius, normothermia protocol if febrile Renal: Elevated BUN, possible hypovolemia - Cr 0.82, BUN 22 - Voiding spontaneously - Aim for euvolemia Intake/Output Summary (Last 24 hours) at 01/06/182234 Last data filed at 01/06/18 1926 Gross per 24 hour Intake 3210 ml Output 3200 ml Net 10 ml Endocrine: DM, hyperglycemia - A1C 6.7% - Holding [employer] INS[employer]OR metformin-glyburide 2.5-500 1 tab BID - Blood glucose goal 100-180mg/dl - HDCF - Glucose 136 on am chemistry - Lantus 10 units daily added today FEN:hyponatremia - NA 134, K 4.3, Cl 110, Mg 1.9, Phos 3.0 - Electrolyte replacement protocol in place - Magnesium goal >2.0, i-Dennis goal > 1.0, Potassium goal >4.0 mEq/L Prophylaxis Review: Prophylaxis: A) GI: None B) Lines:Peripheral IV only C) Urinary Catheter:no velázquez catheter D) Antibiotic Usage:No E) VTE:SCDs, SQ heparin F) Isolation: None G)Seizures: Keppra for ppx I) Restraints: Patient assessed for need for restraints. Disposition/Family:NEICU monitoring Primary service: [facility] Consults:Neurosurgery SUBJECTIVE Yarely Dillon is a 72 y.o. female. Overnight Events: No new events noted. OBJECTIVE Vital Signs: Last Filed Vital Signs: 24 Hour Range BP: 129/60 (01/06 2100) Temp: 37.1 C (98.7 F) (01/06 2000) Pulse: 60 (01/06 2100) Respirations: 14 PER MINUTE (01/06 2100) SpO2: 100 % (01/06 2100) O2 Delivery: None (Room Air) (01/06 2100) Weight: 102.1 kg (225 lb 1.4 oz) (01/06 300) BP: (92-168)/(39-95) Temp: [36.6 C (97.8 F)-37.1 C (98.7 F)] Pulse: [56-86] Respirations: [7 PER MINUTE-33 PER MINUTE] SpO2: [97 %-100 %] O2 Delivery: None (Room Air) Intensity Pain Scale 0-10 (Pain 1): (not recorded) Vitals: 12/30/17 1500 01/04/18 0800 01/06/18 0300 Weight: 99.8 kg (220 lb 0.3 oz) 102.8 kg (226 lb 10.1 oz) 102.1 kg (225 lb 1.4 oz) Artificial airway: None Ventilator/ Respiratory Therapy: No Vent weaning trial: Not applicable Lines: Peripheral Line Drains: None Intake/Output Summary: (Last 24 hours) Intake/Output Summary (Last 24 hours) at 01/06/185 Last data filed at 01/06/18 1926 Gross per 24 hour Intake 3210 ml Output 3200 ml Net 10 ml Stool Occurrence: 1 Physical Exam: Blood pressure 129/60, pulse 60, temperature 37.1 C (98.7 F), height 165.1 cm (65"), weight 102.1 kg (225 lb 1.4 oz), SpO2 100 %. [place] coma score: E: 4 - opens eyes spontaneously M: 6 - Follows simple motor commands V: 5 - Alert and oriented Neuro: Mental Status: Alert to lethargic. Oriented x 4. Follows commands Cranial Nerves: - Pupil exam: Size: 3mm Reactivity: brisk - EOM: intact - Grimace/facial movement: present Motor: Follows commands in all extremities RUE: Strength: 4/5 RLE: Strength: 4/5 LUE: Strength: 4/5 LLE: Strength: 4/5 Sensory: normal Lungs: clear to auscultation bilaterally Pulmonary: Respiratory status: Stable Heart: regular rate and rhythm, S1, S2 normal, no murmur, click, rub or gallop Abdomen: soft, non-tender. Bowel sounds normal. No masses, no organomegaly Extremities: extremities normal, atraumatic, no cyanosis or edema Skin: Skin color, texture, turgor normal. No rashes or lesions Point of Care Testing: (Last 24 hours) Glucose: (!) 136 (01/06/18 0314) POC Glucose (Download): (!) 157 (01/06/18 6165) Lab Review: Pertinent labs reviewed Radiology and Other Diagnostic Procedures Review: Pertinent radiologic and diagnostic procedures reviewed. I spent 38 minutes managing the care of this patient. Yarely Dillon is critically ill with SAH. Cares included: detailed neurologic and systems exam, medication review, laboratory data review and interpretation, electrolyte management, review of available imaging, DVT/PE prophylaxis review, diet review , activity review and coordination of care with consulted teams Jermaine Chua MD Date: 01/06/[phone] Liliana Nobles, PT - 01/06/2018 10:29 AM CSTPHYSICAL THERAPY PROGRESS NOTE MOBILITY: Mobility Progressive Mobility Level: Walk laps Distance Walked (feet): 250 ft Level of Assistance: Assist X1 Assistive Device: Walker Time Tolerated: 11-30 minutes Activity Limited By: Weakness SUBJECTIVE: Subjective Significant hospital events: 72 y.o. female s/p fall at home; found to have SAH from ruputured aneurrsysm; s/p Left frontal craniotomy for clipping acomm aneurysm. Mental / Cognitive Status: Alert;Cooperative Pain: Patient has no complaint of pain Comments: PMH: parkinson's disease; diabetes, HTN, BED MOBILITY/TRANSFERS: Bed Mobility/Transfers Transfer Type: Sit to Stand Transfer: Assistance Level: To/From;Bed Side Chair;Minimal Assist Transfer: Assistive Device: Roller Walker Transfers: Type Of Assistance: Verbal Cues;For Balance;For Strength Deficit;For Safety Considerations End Of Activity Status: Up in Chair;Nursing Notified;Instructed Patient to Request Assist with Mobility;Instructed Patient to Use Call Light (TABs alarm in seat) GAIT: Gait Gait Distance: 250 feet Gait: Assistance Level: Minimal Assist;Standby Assist Gait: Assistive Device: Roller Walker Gait: Descriptors: Pace: Slow;Variable step length;Forward trunk flexion ( verbal cues for erect standing posture) Activity Limited By: Patient Choice EDUCATION: Education Persons Educated: Patient Patient Barriers To Learning: Confusion;Impaired Communication Interventions: Repetition of Instructions Teaching Methods: Verbal Instruction Patient Response: More Instruction Required Topics: Plan/Goals of PT Interventions;Mobility Progression;Safety Awareness;Up with Assist Only;Importance of Increasing Activity;Recommend Continued Therapy ASSESSMENT/PROGRESS: Assessment/Progress Impaired Mobility Due To: Decreased Strength;Impaired Balance;Safety Concerns; Decreased Activity Tolerance Assessment/Progress: Should Improve w/ Continued PT AM-PAC 6 Clicks Basic Mobility Inpatient Turning from your back to your side while in a flat bed without using bed rails : A Little Moving from lying on your back to sitting on the side of a flatbed without using bedrails : A Little Moving to and from a bed to a chair (including a wheelchair): A Little Standing up from a chair using your arms (e.g. wheelchair, or bedside chair): A Little To walk in hospital room: A Little Climbing 3-5 steps with a railing: A Little Raw Score: 18 Standardized (T-scale) Score: 41.05 Basic Mobility CMS 0-100%: 40.47 CMS G Code Modifier for Basic Mobility: CK GOALS: Goals Goal Formulation: With Patient Time For Goal Achievement: 7 days Pt Will Go Supine To/From Sit: w/ Stand By Assist Pt Will Transfer Sit to Stand: w/ Stand By Assist Pt Will Ambulate: Greater than 200 Feet, w/ No Device, w/ Stand By Assist Pt Will Go Up / Down Stairs: 3-5 Stairs, w/ Minimal Assist PLAN: Plan Treatment Interventions: Mobility Training;Strengthening;Balance Activities Plan Frequency: 5 Days per Week Comments: increase gait distance with RW; try stairs; test balance - consider mobility schedule to promote out of bed activity. RECOMMENDATIONS: PT Discharge Recommendations PT Discharge Recommendations: Home with Assistance;versus;Inpatient Setting Equipment Recommendations: Roller Walker - Patient requires the use of a walker with wheels to complete ADLs in the home including meal preparation, ambulation the bathroom for toileting, bathing and grooming, and safe home mobility. Patient is unable to complete these ADLs with a cane or crutch. Therapist: Liliana Nobles, PT Date: 01/06/2018 Anabel Mitchell APRN - 01/06/2018 9:58 AM CSTFormatting of this note may be different from the original. Neurosurgery Progress Note SUBJECTIVE: No acute concerns. Seen with Dr. Mercer and resident team this AM. OBJECTIVE: Vital Signs: 24 Hour Range BP: (92-173)/(39-78) Temp: [36.6 C (97.8 F)-37.1 C (98.7 F)] Pulse: [57-84] Respirations: [11 PER MINUTE-29 PER MINUTE] SpO2: [97 %-100 %] O2 Delivery: None (Room Air) Sitting up in bed. Able to state name, place, month Follows commands x [address] ASSESSMENT/PLAN: 72 y.o. female s/p Left frontal craniotomy for clipping acomm aneurysm. Active Hospital Problems Diagnosis Diabetes (HCC) Hypertension Subarachnoid hemorrhage (HCC) PBD # 9; POD # 8 Left ACOMM aneurysm clipping (Dr. Mercer) Continue current care --Keppra, Nimotop SBP < 180 mmHg Na 134 - florinef, Na solution 1:1 NS replacement Daily TCDs PT/OT/FREIGHT SOLICITOR Discharge planning -- anticipate floor status tomorrow; rehab consult pending Prophylaxis: A)GI: PPI B) Lines: None; PIV C) Urinary Catheter: No D) Antibiotic Usage: No E) VTE: Pharmacological prophylaxis; SQ Heparin and Mechanical prophylaxis; Sequential compression device F) Restraints: Patient assessed for need for restraints. Anabel Mitchell, ANIMAL SHELTER WORKER [id number] Please call [phone] with any questions.Nereida Garner, SUSSY - 2017 6:46 AM CSTFormatting of this note may be different from the original. Neuro Critical Care Progress Note Yarely Lopezmmer Admission Date: 12/29/2017 LOS: 8 days Full Code ASSESSMENT/PLAN Patient Active Problem List Diagnosis Date Noted Diabetes (HCC) 12/29/2017 Hypertension 12/29/2017 Subarachnoid hemorrhage (HCC) 12/29/2017 Yarely Lopezgrisel a 72 y.o.femalewith PMH DM, HTN who presented to OSH after fall in shower at[place] 2014 on 12/28. Developed pain in back of head , twisted to turn water off and lost consciousness. Woke up less than 10min after event, got herself up and got her . CT head obtained with evidence of SAH, transferred to [facility] for management. AComm aneurysm clipped in OR on 12/29. Hospital and ICU course: 12/29: Transfer from [place], [place] with SAH. Neurologically intact. S/p craniotomy for aneurysm repair 12/30: Patient is confused and impulsive, but no focal neuro deficits. Telemetry with PVCs, negative troponin. Lytes replaced 12/31: Less verbal today but no focal deficits. Decadron x24 hours. 01/01: More awake, oriented x2 01/02: Continued impulsivity, pulling at surgical sutures requiring mittens, restraint, CO. 01/03: No acute events overnight. 01/05: Agitation overnight. Risperdal 0.5mg x1 given 01/06: NAEO, added back 1:1 fluid replacement in the setting of hemoconcentration and negative I&O status today Neuro: Subarachnoid hemorrhage, aneurysmal S/p craniotomy, ACOMM aneurysm repair 12/29; HH 1 MF 3 Cerebral Angio 12/29: 1) A-comm artery aneurysm measuring 6.03 mm in height, 5.11 mm in width, and 2.78 mm at the neck with a moderate size Espinoza's point 2) Right P-comm artery aneurysm measuring 3.27 mm in width, 3.11 mm in height, and 2.76 mm at the neck. 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 - PRN oxycodone, tylenol available - Monitor for delirium- neuro checks to Q2H and scheduled melatonin qHS Cardiac Hx HTN - Holding [employer] INS[employer]OR spironolactone/HCTZ 25-25mg QD - Continue [employer]OR Methyldopa 250 mg BID - Prn labetalol, hydralazine for BP goal - SBP goal <170, MAP goal >65 Respiratory: - No acute issues, on RA - Spo2 goal >92% GI - Diabetic diet, will monitor PO intake, Boost shakes BID - Calorie count - pending - Bowel regimen, ensure daily BM. Suppository prn - Last BM 01/04 Heme: Anemia, likely secondary to blood loss - Hb 9.3, Plt 163 - hemo-concentrated - SQ heparin DVT ppx - Assess for coagulopathy, maintain platelets above 100k, INR <1.5 ID: - Afebrile, WBC 8.2 - UA 2/8 no e/o infection - Aim for normothermia, Temp <38.3 celsius, normothermia protocol if febrile Renal: Elevated BUN, possible hypovolemia - Cr 0.82, BUN 22 - Voiding spontaneously - Aim for euvolemia Intake/Output Summary (Last 24 hours) at 01/06/18645 Last data filed at 01/06/18 06 Gross per 24 hour Intake 2220 ml Output 3425 ml Net -1205 ml Endocrine: DM, hyperglycemia - A1C 6.7% - Holding [employer] metformin-glyburide 2.5-500 1 tab BID - Blood glucose goal 100-180mg/dl - HDCF - Glucose 136 on am chemistry - Lantus 10 units daily added today FEN:hyponatremia - NA 134, K 4.3, Cl 110, Mg 1.9, Phos 3.0 - Electrolyte replacement protocol in place - Magnesium goal >2.0, i-Dennis goal > 1.0, Potassium goal >4.0 mEq/L Prophylaxis Review: Prophylaxis: A) GI: None B) Lines:Peripheral IV only C) Urinary Catheter:no velázquez catheter D) Antibiotic Usage:No E) VTE:SCDs, SQ heparin F) Isolation: None G)Seizures: Keppra for ppx I) Restraints: Patient assessed for need for restraints. Disposition/Family:NEICU monitoring Primary service: [facility] Consults:Neurosurgery SUBJECTIVE Yarely Dillon is a 72 y.o. female. Overnight Events: No new events noted. OBJECTIVE Vital Signs: Last Filed Vital Signs: 24 Hour Range BP: 92/78 (01/06 600) Temp: 37.1 C (98.7 F) (01/06 0400) Pulse: 59 (01/06 0600) Respirations: 15 PER MINUTE (01/06 600) SpO2: 99 % (01/06 600) O2 Delivery: None (Room Air) (01/06 0600) Weight: 102.1 kg (225 lb 1.4 oz) (01/06 0300) BP: (92-173)/(39-78) Temp: [36.8 C (98.3 F)-37.1 C (98.7 F)] Pulse: [57-84] Respirations: [11 PER MINUTE-29 PER MINUTE] SpO2: [97 %-100 %] O2 Delivery: None (Room Air) Intensity Pain Scale 0-10 (Pain 1): (not recorded) Vitals: 12/30/17 1500 01/04/18 0800 01/06/18 0300 Weight: 99.8 kg (220 lb 0.3 oz) 102.8 kg (226 lb 10.1 oz) 102.1 kg (225 lb 1.4 oz) Artificial airway: None Ventilator/ Respiratory Therapy: No Vent weaning trial: Not applicable Lines: Peripheral Line Drains: None Intake/Output Summary: (Last 24 hours) Intake/Output Summary (Last 24 hours) at 01/06/18 0646 Last data filed at 01/06/18 0600 Gross per 24 hour Intake 2220 ml Output 3425 ml Net -1205 ml Stool Occurrence: 1 Physical Exam: Blood pressure 92/78, pulse 59, temperature 37.1 C (98.7 F), height 165.1 cm (65"), weight 102.1kg (225 lb 1.4 oz), SpO2 99 %. [place] coma score: E: 4 - opens eyes spontaneously M: 6 - Follows simple motor commands V: 5 - Alert and oriented Neuro: Mental Status: Alert to lethargic. Oriented x 4. Follows commands Cranial Nerves: - Pupil exam: Size: 3mm Reactivity: brisk - EOM: intact - Grimace/facial movement: present Motor: Follows commands in all extremities RUE: Strength: 4/5 RLE: Strength: 4/5 LUE: Strength: 4/5 LLE: Strength: 4/5 Sensory: normal Lungs: clear to auscultation bilaterally Pulmonary: Respiratory status: Stable Heart: regular rate and rhythm, S1, S2 normal, no murmur, click, rub or gallop Abdomen: soft, non-tender. Bowel sounds normal. No masses, no organomegaly Extremities: extremities normal, atraumatic, no cyanosis or edema Skin: Skin color, texture, turgor normal. No rashes or lesions Point of Care Testing: (Last 24 hours) FSBS (Manual): (!) 155 (01/05/182157) Glucose: (!) 136 (01/06/18 0314) POC Glucose (Download): (!) 155 (01/05/182157) Lab Review: Pertinent labs reviewed Radiology and Other Diagnostic Procedures Review: Pertinent radiologic and diagnostic procedures reviewed. I spent 38 minutes managing the care of this patient. Yarely Dillon is critically ill with SAH. Cares included: detailed neurologic and systems exam, medication review, laboratory data review and interpretation, electrolyte management, review of available imaging, DVT/PE prophylaxis review, diet review , activity review and coordination of care with consulted teams Nereida Garner, SUSSY Date: 01/06/[phone] Liliana Nobles, PT - 01/05/2018 1:23 PM [id number] THERAPY PROGRESS NOTE MOBILITY: Mobility Progressive Mobility Level: Walk in hallway Distance Walked (feet): 200 ft Level of Assistance: Assist X1 Assistive Device: Hand Held Time Tolerated: 11-30 minutes Activity Limited By: Weakness;Shortness of air SUBJECTIVE: Subjective Significant hospital events: 72 y.o. female s/p fall at home; found to have SAH from ruptured aneurysms; s/p Left frontal craniotomy for clipping acomm aneurysm. Mental / Cognitive Status: Alert;Inconsistent with Command Following;To Place; To Time;To Person;Oriented Pain: Patient has no complaint of pain Comments: PMH: parkinson's disease; diabetes, HTN, BED MOBILITY/TRANSFERS: Bed Mobility/Transfers Bed Mobility: Supine to Sit: Moderate Assist;Assist with Trunk;Head of Bed Elevated Transfer Type: Sit to Stand Transfer: Assistance Level: To/From;Bed;Bed Side Chair;Minimal Assist Transfer: Assistive Device: None Transfers: Type Of Assistance: Verbal Cues;For Balance;For Strength Deficit;For Safety Considerations End Of Activity Status: Up in Chair;Nursing Notified;Instructed Patient to Request Assist with Mobility;Instructed Patient to Use Call Light (TABs alarm in seat) GAIT: Gait Gait Distance: 200 feet Gait: Assistance Level: Minimal Assist Gait: Assistive Device: Hand Hold Assist Gait: Descriptors: Pace: Slow;Pathway deviations;Variable step length;Forward trunk flexion Comments: Needs maximum encouragement to continue ambulation ; vital signs WNL, although patient does have some shortness of breath.. Activity Limited By: Patient Choice EDUCATION: Education Persons Educated: Patient Patient Barriers To Learning: Confusion;Impaired Communication Interventions: Repetition of Instructions Teaching Methods: Verbal Instruction Patient Response: More Instruction Required Topics: Plan/Goals of PT Interventions;Mobility Progression;Safety Awareness;Up with Assist Only;Importance of Increasing Activity;Recommend Continued Therapy ASSESSMENT/PROGRESS: Assessment/Progress Impaired Mobility Due To: Decreased Strength;Impaired Balance;Safety Concerns; Decreased Activity Tolerance Assessment/Progress: Should Improve w/ Continued PT AM-PAC 6 Clicks Basic Mobility Inpatient Turning from your back to your side while in a flat bed without using bed rails : A Little Moving from lying on your back to sitting on the side of a flatbed without using bedrails : A Little Moving to and from a bed to a chair (including a wheelchair): A Little Standing up from a chair using your arms (e.g. wheelchair, or bedside chair): A Little To walk in hospital room: A Little Climbing 3-5 steps with a railing: A Little Raw Score: 18 Standardized (T-scale) Score: 41.05 Basic Mobility CMS 0-100%: 40.47 CMS G Code Modifier for Basic Mobility: CK GOALS: Goals Goal Formulation: With Patient Time For Goal Achievement: 7 days Pt Will Go Supine To/From Sit: w/ Stand By Assist Pt Will Transfer Sit to Stand: w/ Stand By Assist Pt Will Ambulate: Greater than 200 Feet, w/ No Device, w/ Stand By Assist Pt Will Go Up / Down Stairs: 3-5 Stairs, w/ Minimal Assist PLAN: Plan Treatment Interventions: Mobility Training;Strengthening;Balance Activities Plan Frequency: 5 Days per Week Comments: increase gait distance - trial RW; try stairs; test balance - consider mobility schedule to promote out of bed activity. RECOMMENDATIONS: PT Discharge Recommendations PT Discharge Recommendations: Home with Assistance;versus;Inpatient Setting Equipment Recommendations: Too early to be determined Anticipate patient will progress well and be safe for home discharge. Currently limited by: decreased activity tolerance and motivation. Will continue to assess and update recommendations. Therapist: Liliana Nobles, PT Date: 01/05/2018 Jermaine Chua MD - 01/05/2018 12:40 PM CSTFormatting of this note may be different from the original. Neuro Critical Care Progress Note Yarely Dillon Admission Date: 12/29/2017 LOS: 7 days Full Code ATTESTATION This note is associated with the NEICU team note dated today. Date of Service: 01/05/2018 72 year old female with past medical history significant for SAH on 12/28 and clipping of JOSE aneurysmon 12/29/17. She has more metabolic acidosis today than yesterday. The trend concerns me somewhat. Chloride is stable. Sent ketones in blood, spec in lab. Started insulin. Otherwise she is doing well. She is similarly lethargic compared to yesterday, she opens her eyes brightly on request. SBP goal < 180 Sodium goal eunatremia on oral salt and florinef. Past Medical History: Diagnosis Date DM (diabetes mellitus) (HCC) HTN (hypertension) I have seen, personally fully evaluated, and discussed patient withthe NEICU team. I agree with theobjective findings and agree with the plan of care as documented by the resident with the exceptionsnoted. The patient is critically ill with SAH, metabolic acidosis. Active hospital problems include: Active Problems: Diabetes (HCC) Hypertension Subarachnoid hemorrhage (HCC) I spent 40 minutes (excluding time spent performing or supervising any procedures) providing and personally directing critical care services including -review of serial neurologic, hemodynamic, respiratory, telemetry, laboratory and imaging data -management of fluids/electrolytes, antibiotics, vasoactive medications, gas exchange/mechanical ventilation, sepsis protocol, ICU prophylaxis, and ICU core measures -pain/sedation/delirium management -medication review and management -organization and coordination of care with patient (or surrogate), ICU team and consulting services. -directing the formulation of the overall plan of care outlined below. Dispo: This patient is critically ill with dysfunction of at least one organ system and is at risk for life threatening deterioration necessitating complex medical decision making and ongoing provisionof ICU care. Staff name: Jermaine Chua MD Date: 01/05/2018 ASSESSMENT/PLAN Patient Active Problem List Diagnosis Date Noted Diabetes (HCC) 12/29/2017 Hypertension 12/29/2017 Subarachnoid hemorrhage (HCC) 12/29/2017 Yarely Bydr a 72 y.o.femalewith PMH DM, HTN who presented to OSH after fall in shower atapproximately 2014 on 12/28. Developed pain in back of head , twisted to turn water off and lost consciousness. Woke up less than 10min after event, got herself up and got her . CT head obtained with evidence of SAH, transferred to [facility] for management. AComm aneurysm clipped in OR on 12/29. Hospital and ICU course: 12/29: Transfer from [place], [place] with SAH. Neurologically intact. S/p craniotomy for aneurysm repair 12/30: Patient is confused and impulsive, but no focal neuro deficits. Telemetry with PVCs, negative troponin. Lytes replaced 12/31: Less verbal today but no focal deficits. Decadron x24 hours. 01/01: More awake, oriented x2 01/02: Continued impulsivity, pulling at surgical sutures requiring mittens, restraint, CO. 01/03: No acute events overnight. 01/05: Agitation overnight. Risperdal 0.5mg x1 given Neuro: Subarachnoid hemorrhage, aneurysmal S/p craniotomy, ACOMM aneurysm repair 12/29; 1 MF 3 Cerebral Angio 12/29: 1) A-comm artery aneurysm measuring 6.03 mm in height, 5.11 mm in width, and 2.78 mm at the neck with a moderate size Espinoza's point 2) Right P-comm artery aneurysm measuring 3.27 mm in width, 3.11 mm in height, and 2.76 mm at the neck. - Nimodipine 60 mg every 4 hours - Sodium Goal : 135-145 (133 today) - PO sodium chloride 34 meq Q6H - Florinef 0.1 mg BID added today - Finished Decadron 4mg x 5 doses 01/01 - Keppra 500 BID for post-op ppx - TCDs daily - left LR 2.5, right LR 1.7 today - Requiring mittens, CO for impulsivity due to pulling at surgical sutures - Started melatonin 3mg qHS - PT/OT/FREIGHT SOLICITOR for cognitive eval - Neuro-ICU monitoring, neurochecks q 2 hrs Sedation, pain - No 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 - PRN oxycodone, tylenol available - Monitor for delirium- neuro checks to Q2H and scheduled melatonin qHS - Risperdal 0.5 mg once overnight Cardiac Hx HTN - Holding [employer] spironolactone/HCTZ 25-25mg QD - Continue [employer] Methyldopa 250 mg BID - Prn labetalol, hydralazine for BP goal - SBP goal <170, MAP goal >65 Respiratory: - No acute issues, on RA - Spo2 goal >92% GI - Diabetic diet, will monitor PO intake, Boost shakes BID - Calorie count - pending - Bowel regimen, ensure daily BM. Suppository prn - Last BM 01/04 Heme: Anemia, likely secondary to blood loss - Hb 8.4, Plt 146 - SQ heparin DVT ppx - Assess for coagulopathy, maintain platelets above 100k, INR <1.5 ID: - Afebrile, WBC 6.1 - UA 12/31 no e/o infection - Aim for normothermia, Temp <38.3 celsius, normothermia protocol if febrile Renal: Elevated BUN, possible hypovolemia - Cr 0.78, BUN 19 - Voiding spontaneously - Aim for euvolemia Intake/Output Summary (Last 24 hours) at 01/05/18 1240 Last data filed at 01/05/18 1200 Gross per 24 hour Intake 1650 ml Output 1250 ml Net 400 ml Endocrine: DM, hyperglycemia - A1C 6.7% - Holding [employer] metformin-glyburide 2.5-500 1 tab BID - Blood glucose goal 100-180mg/dl - HDCF - Glucose 153 - 244 in last 24 hours - Lantus 10 units daily added today FEN:hyponatremia - NA 133, K 4.4, Cl 108, Mg 2.0, Phos 3.4 - Electrolyte replacement protocol in place - Magnesium goal >2.0, i-Dennis goal > 1.0, Potassium goal >4.0 mEq/L Prophylaxis Review: Prophylaxis: A) GI: None B) Lines:Peripheral IV only C) Urinary Catheter:no velázquez catheter D) Antibiotic Usage:No E) VTE:SCDs, SQ heparin F) Isolation: None G)Seizures: Keppra for ppx I) Restraints: Patient assessed for need for restraints. Disposition/Family:NEICU monitoring Primary service: [facility] Consults:Neurosurgery SUBJECTIVE Yarely Dillon is a 72 y.o. female. Overnight Events: No new events noted. OBJECTIVE Vital Signs: Last Filed Vital Signs: 24 Hour Range BP: 115/71 (01/05 1200) Temp: 37 C (98.6 F) (01/05 1200) Pulse: 67 (01/05 1200) Respirations: 26 PER MINUTE (01/05 1200) SpO2: 98 % (01/05 1200) O2 Delivery: None (Room Air) (01/05 1200) BP: (115-174)/(31-79) Temp: [36.6 C (97.8 F)-37 C (98.6 F)] Pulse: [50-74] Respirations: [0 PER MINUTE-30 PER MINUTE] SpO2: [95 %-100 %] O2 Delivery: None (Room Air) Intensity Pain Scale 0-10 (Pain 1): (not recorded) Vitals: 12/29/17 1800 12/30/17 1500 01/04/18 0800 Weight: 99.8 kg (220 lb 0.3 oz) 99.8 kg (220 lb 0.3 oz) 102.8 kg (226 lb 10.1 oz ) Artificial airway: None Ventilator/ Respiratory Therapy: No Vent weaning trial: Not applicable Lines: Peripheral Line Drains: None Intake/Output Summary: (Last 24 hours) Intake/Output Summary (Last 24 hours) at 01/05/18 1240 Last data filed at 01/05/18 1200 Gross per 24 hour Intake 1650 ml Output 1250 ml Net 400 ml Stool Occurrence: 1 Physical Exam: Blood pressure 115/71, pulse 67, temperature 37 C (98.6 F), height 165.1 cm (65"), weight 102.8 kg (226 lb 10.1 oz), SpO2 98 %. [place] coma score: E: 4 - opens eyes spontaneously M: 6 - Follows simple motor commands V: 5 - Alert and oriented Neuro: Mental Status: Alert to lethargic. Oriented x 4. Follows commands Cranial Nerves: - Pupil exam: Size: 3mm Reactivity: brisk - EOM: intact - Grimace/facial movement: present Motor: Follows commands in all extremities RUE: Strength: 4/5 RLE: Strength: 4/5 LUE: Strength: 4/5 LLE: Strength: 4/5 Sensory: normal Lungs: clear to auscultation bilaterally Pulmonary: Respiratory status: Stable Heart: regular rate and rhythm, S1, S2 normal, no murmur, click, rub or gallop Abdomen: soft, non-tender. Bowel sounds normal. No masses, no organomegaly Extremities: extremities normal, atraumatic, no cyanosis or edema Skin: Skin color, texture, turgor normal. No rashes or lesions Point of Care Testing: (Last 24 hours) Glucose: (!) 149 (01/05/18 0416) POC Glucose (Download): (!) 220 (01/05/18 113) Lab Review: Pertinent labs reviewed Radiology and Other Diagnostic Procedures Review: Pertinent radiologic and diagnostic procedures reviewed. Jermaine Chua MD Date: 01/05/[phone] Denzel Mi MD - 01/05/2018 6:38 AM CSTFormatting of this note may be different from the original. Neurosurgery Progress Note SUBJECTIVE: No acute concerns. Required Risperdal overnight and recently started Provigil. Will DC both Risperdal and provigil and monitor mental status due to concerns with conflicting polypharmacy. If becomes less alert may start provigil again but hold sedating meds / antipsychotics at night. OBJECTIVE: Vital Signs: 24 Hour Range BP: (118-174)/(31-79) Temp: [36.4 C (97.6 F)-37.3 C (99.1 F)] Pulse: [50-74] Respirations: [0 PER MINUTE-30 PER MINUTE] SpO2: [95 %-100 %] O2 Delivery: None (Room Air) Sleeping, awakens to voice Able to state name, place, month Follows commands x [address] ASSESSMENT/PLAN: 72 y.o. female s/p Left frontal craniotomy for clipping acomm aneurysm. Active Hospital Problems Diagnosis Diabetes (HCC) Hypertension Subarachnoid hemorrhage (HCC) PBD #8; POD #7 Left ACOMM aneurysm clipping (Dr. Mercer) Rusty, Nimotop SBP < 180 TCD 2.5 / 1.7 PO Salt Speech- okay for regular diet/thin liquids PT/OT mobilization - inpatient versus home with family assist Continue ICU care SQ heparin Prophylaxis: A)GI: PPI B) Lines: None; PIV C) Urinary Catheter: No D) Antibiotic Usage: No E) VTE: Pharmacological prophylaxis; SQ Heparin and Mechanical prophylaxis; Sequential compression device F) Restraints: Patient assessed for need for restraints. Denzel Mi MD Please call [phone] with any questions.Jazzy Dasilva, [employer] WORKER - 01/05/2018 6:06 AM CSTFormatting of this note may be different from the original. Neuro Critical Care Progress Note Yarely Dillon Admission Date: 12/29/2017 LOS: 7 days Full Code ASSESSMENT/PLAN Patient Active Problem List Diagnosis Date Noted Diabetes (HCC) 12/29/2017 Hypertension 12/29/2017 Subarachnoid hemorrhage (HCC) 12/29/2017 Yarely Byrd a 72 y.o.femalewith PMH DM, HTN who presented to OSH after fall in shower atapproximately 2014 on 12/28. Developed pain in back of head , twisted to turn water off and lost consciousness. Woke up less than 10min after event, got herself up and got her . CT head obtained with evidence of SAH, transferred to [facility] for management. AComm aneurysm clipped in OR on 12/29. Hospital and ICU course: 12/29: Transfer from [place], [place] with SAH. Neurologically intact. S/p craniotomy for aneurysm repair 12/30: Patient is confused and impulsive, but no focal neuro deficits. Telemetry with PVCs, negative troponin. Lytes replaced 12/31: Less verbal today but no focal deficits. Decadron x24 hours. 01/01: More awake, oriented x2 01/02: Continued impulsivity, pulling at surgical sutures requiring mittens, restraint, CO. 01/03: No acute events overnight. 01/05: Agitation overnight. Risperdal 0.5mg x1 given Neuro: Subarachnoid hemorrhage, aneurysmal S/p craniotomy, ACOMM aneurysm repair 12/29; 1 MF 3 Cerebral Angio 12/29: 1) A-comm artery aneurysm measuring 6.03 mm in height, 5.11 mm in width, and 2.78 mm at the neck with a moderate size Espinoza's point 2) Right P-comm artery aneurysm measuring 3.27 mm in width, 3.11 mm in height, and 2.76 mm at the neck. - Nimodipine 60 mg every 4 hours - Sodium Goal : 135-145 (133 today) - PO sodium chloride 34 meq Q6H - Florinef 0.1 mg BID added today - Finished Decadron 4mg x 5 doses 01/01 - Keppra 500 BID for post-op ppx - TCDs daily - left LR 2.5, right LR 1.7 today - Requiring mittens, CO for impulsivity due to pulling at surgical sutures - Started melatonin 3mg qHS - PT/OT/FREIGHT SOLICITOR for cognitive eval - Neuro-ICU monitoring, neurochecks q 2 hrs Sedation, pain - No 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 - PRN oxycodone, tylenol available - Monitor for delirium- neuro checks to Q2H and scheduled melatonin qHS - Risperdal 0.5 mg once overnight Cardiac Hx HTN - Holding [employer] spironolactone/HCTZ 25-25mg QD - Continue [employer] Methyldopa 250 mg BID - Prn labetalol, hydralazine for BP goal - SBP goal <170, MAP goal >65 Respiratory: - No acute issues, on RA - Spo2 goal >92% GI - Diabetic diet, will monitor PO intake, Boost shakes BID - Calorie count - pending - Bowel regimen, ensure daily BM. Suppository prn - Last BM 01/04 Heme: Anemia, likely secondary to blood loss - Hb 8.4, Plt 146 - SQ heparin DVT ppx - Assess for coagulopathy, maintain platelets above 100k, INR <1.5 ID: - Afebrile, WBC 6.1 - UA 12/31 no e/o infection - Aim for normothermia, Temp <38.3 celsius, normothermia protocol if febrile Renal: Elevated BUN, possible hypovolemia - Cr 0.78, BUN 19 - Voiding spontaneously - Aim for euvolemia Intake/Output Summary (Last 24 hours) at 01/05/18 0606 Last data filed at 01/05/18 0230 Gross per 24 hour Intake 1580 ml Output 750 ml Net 830 ml Endocrine: DM, hyperglycemia - A1C 6.7% - Holding [employer] metformin-glyburide 2.5-500 1 tab BID - Blood glucose goal 100-180mg/dl - HDCF - Glucose 153 - 244 in last 24 hours - Lantus 10 units daily added today FEN:hyponatremia - NA 133, K 4.4, Cl 108, Mg 2.0, Phos 3.4 - Electrolyte replacement protocol in place - Magnesium goal >2.0, i-Dennis goal > 1.0, Potassium goal >4.0 mEq/L Prophylaxis Review: Prophylaxis: A) GI: None B) Lines:Peripheral IV only C) Urinary Catheter:no velázquez catheter D) Antibiotic Usage:No E) VTE:SCDs, SQ heparin F) Isolation: None G)Seizures: Keppra for ppx I) Restraints: Patient assessed for need for restraints. Disposition/Family:NEICU monitoring Primary service: [facility] Consults:Neurosurgery SUBJECTIVE Yarely Dillon is a 72 y.o. female. Overnight Events: No new events noted. OBJECTIVE Vital Signs: Last Filed Vital Signs: 24 Hour Range BP: 125/43 (01/05 600) Temp: 36.8 C (98.3 F) (01/05 0400) Pulse: 49 (01/05 600) Respirations: 10 PER MINUTE (01/05 600) SpO2: 97 % (01/05 600) O2 Delivery: None (Room Air) (01/05 600) Weight: 102.8 kg (226 lb 10.1 oz) (01/04 800) BP: (118-174)/(31-79) Temp: [36.4 C (97.6 F)-37.3 C (99.1 F)] Pulse: [49-74] Respirations: [0 PER MINUTE-30 PER MINUTE] SpO2: [95 %-100 %] O2 Delivery: None (Room Air) Intensity Pain Scale 0-10 (Pain 1): (not recorded) Vitals: 12/29/17 1800 12/30/17 1500 01/04/18 0800 Weight: 99.8 kg (220 lb 0.3 oz) 99.8 kg (220 lb 0.3 oz) 102.8 kg (226 lb 10.1 oz ) Artificial airway: None Ventilator/ Respiratory Therapy: No Vent weaning trial: Not applicable Lines: Peripheral Line Drains: None Intake/Output Summary: (Last 24 hours) Intake/Output Summary (Last 24 hours) at 01/05/18 0606 Last data filed at 01/05/18 0230 Gross per 24 hour Intake 1580 ml Output 750 ml Net 830 ml Stool Occurrence: 1 Physical Exam: Blood pressure 125/43, pulse 49, temperature 36.8 C (98.3 F), height 165.1 cm (65"), weight 102.8 kg (226 lb 10.1 oz), SpO2 97 %. [place] coma score: E: 4 - opens eyes spontaneously M: 6 - Follows simple motor commands V: 5 - Alert and oriented Neuro: Mental Status: Alert to lethargic. Oriented x 4. Follows commands Cranial Nerves: - Pupil exam: Size: 3mm Reactivity: brisk - EOM: intact - Grimace/facial movement: present Motor: Follows commands in all extremities RUE: Strength: 4/5 RLE: Strength: 4/5 LUE: Strength: 4/5 LLE: Strength: 4/5 Sensory: normal Lungs: clear to auscultation bilaterally Pulmonary: Respiratory status: Stable Heart: regular rate and rhythm, S1, S2 normal, no murmur, click, rub or gallop Abdomen: soft, non-tender. Bowel sounds normal. No masses, no organomegaly Extremities: extremities normal, atraumatic, no cyanosis or edema Skin: Skin color, texture, turgor normal. No rashes or lesions Point of Care Testing: (Last 24 hours) Glucose: (!) 149 (01/05/18 0416) POC Glucose (Download): (!) 195 (01/04/182013) Lab Review: Pertinent labs reviewed Radiology and Other Diagnostic Procedures Review: Pertinent radiologic and diagnostic procedures reviewed. I spent 26 minutes managing the care of this patient. Yarely Dillon is critically ill with SAH. Cares included: detailed neurologic and systems exam, medication review, laboratory data review and interpretation, electrolyte management, review of available imaging, DVT/PE prophylaxis review, diet review , activity review and coordination of care with consulted teams Jazzy Dasilva, ANIM[employer] SHELTER WORKER Date: 01/05/[phone] Anna Hernandez, PT - 01/04/2018 3:23 PM CSTPHYSICAL THERAPY NOTE Patient declined to participate despite encouragement and education about the role and benefits of physical therapy due to fatigue. Physical therapy will continue to follow and provide intervention asindicated. Therapist: Anna Hernandez, PT Date: 01/04/2018 Stefanie Milton - 01/04/2018 2:28 PM FOOD PRESERVATION SCIENTIST CLINICAL NUTRITION Clinical Nutrition Assessment Summary Nutrition Assessment of Patient: BMI Categories Adult: Obesity Class II: 35-39.9 (36.61) Malnutrition Assessment: Does not meet criteria Current Oral Intake: Inadequate Estimated Calorie Needs: 1635 (25 kcal/kg desired wt 65.4kg) Estimated Protein Needs: 78-85 (1.2-1.3 gm/kg desired wt 65.4kg) Oral Diet Order: Diabetic 4459-3264 Kcal/day (60 g Carb/meal, 30 g Carb/HS snack ) Oral Supplement: Boost Glucose Control, BID 2 Day PO Intake (calories) Daily Average: 1004 kilocalories 2 Day PO Intake (protein) Daily Average: 59 grams 72 yo F with PMH of DM (A1c 6.7%) and HTN who is being managed in Neuro ICU s/p craniectomy and aneurysm repair on 12/29 after presenting at outside hospital with SAH 12/28. Spoke with pt this afternoon asshe was able to provide subjective information. 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 She was also able to tell me that she ate all of her hamburger juliana with lettuce and tomato with a side of mac and cheese for lunch today. Per RN, pt has ate very well at both meals so far today. Pt noted having an allergy to chocolate and green beans, causing N/V - will verify at f/u visit when mental status improved (pt was in and out of sleep during this part of our conversation ). Boost plus ordered BID as snacks, but will modify to boost glucose control to come on meal trays as pthas not been consistently receiving these. Pt not appropriate for DM/heart healthy diet education today, will offer at f/u visit if appropriate. Recommendation: Continue diet as ordered with encouragement of boost glucose control BID ( less often if PO intakes continue to improve). D/c calorie count tomorrow morning (will have 3 days of data available, and PO intakes are starting to improve - pt now eating 100% of meals). Intervention / Plan: Discussed nutrition POC with bedside RN. Modifed supplement order from boost plus to boost glucose control (will specify no chocolate as pt reported possible allergy to this flavor), and ordered with meals (BID) as pt has not been consistently recieving this ordered as a snack. Monitor PO intakes, weight trends, labs, meds, GI health. Nutrition Diagnosis: Nutrition Diagnosis: Inadequate protein-energy intake (improving) Etiology: reduced appetite d/t SAH Signs & Symptoms: calorie counts and meal documentation prior to 01/04 Goals: Patient to consume >85% of meals/supplements Time Frame: Throughout Stay Rajani Milton RD, LD Pager: [phone] Sylvia Antony - 01/04/2018 2:22 PM CSTSPEECH-LANGUAGE PATHOLOGY DAILY TREATMENT NOTE Patient seen 1x this date. Documentation reflects all daily treatment sessions. SUMMARY OF THERAPY SESSION: F/u this date to ensure for diet tolerance and ongoing cognitive-communicative evaluation. Pt with some improvement in lethargy throughout evaluation. RN reports diet tolerance this date. Will continue to follow, please see details below. RECOMMENDATIONS: 1:Continue w/ regular solids &thin liquids given 100% supervision. If overt s/s aspiration observed please cease p.o. Intake until pt's swallow can be re-evaluated by this department.Good oral care to minimize pt's risk of aspirating bacteria in oral secretions. Pills one at a time. 2: Recommend consistent supervisionupon discharge as anticipate patient's impaired safety awareness and/or problem solving &communication will impact their ability to call for help. Swallow Strategies: Supervision During Meals, Small Bites/Sips, Slow Rate of Intake; pt must be fully alert Goal : The pt will tolerate a regular diet w/ thin liquids w/ < 5% overt s/s aspiration. Met Comment: RN reports diet tolerance this date. Continue goal at this level to ensure accuracy Goal : The pt will participate in ongoing language evaluation given mod cues to maintain attention. Partly met Comment: Pt with reduced attention to task during evaluation along with lethargy requiring mild cues. Reading: Pt able to read cards received from family. Reading comprehension Y/N questions: 6/8 Writing: Pt able to write name, 3/3 words, and 1/1 sentence Verbal expression: Pt with limited verbal output for cookie theft picture, she stated: "He's in the cookie jar" and "There's a mess." Speech was noted to be fluent. Continue goal at this level to ensure accuracy PLAN / RECOMMENDATIONS: Continue treatment 1-3x/week Therapist: Sylvia Antony M.A. [employer]ICITOR Pager: [phone] Weekend Acute Pager: [phone] Date: 01/04/2018 Mariah Hemphill, OT - 01/04/2018 1:10 PM CSTOCCUPATIONAL THERAPY NO TREATMENT NOTE Attempted to see patient however patient declined. Provided support and encouragement however patient continued to state "No" with her eyes closed and pulled her blankets up over her. Will follow andprovide OT intervention as indicated. Therapist: Mariah Hemphill, OTR/L [id number] Date: 01/04/2018Stephanie Chau M.Div, [facility] - 01/04/2018 11:16 AM CSTReason for Visit: Rounding Noemi/Scientologist: The patient is Holiness and does not belong to a specific sabianist. Worries/Concerns/Struggles: Right now, she really wants to go home. Method(s) of Coping: She said she likes to "keep living and doing the things she does." Support System: Her , brother, and two nephews are her strongest support. Interventions/Plan: The reimbursement consultant assessed the patient. Jermaine Chua MD - 01/04/2018 10:13 AM CSTFormatting of this note may be different from the original. Neuro Critical Care Progress Note Yarely Dillon Admission Date: 12/29/2017 LOS: 6 days Full Code ATTESTATION This note is associated with the NEICU team note dated today. Date of Service: 01/04/2018 72 year old female with past medical history significant for SAH on 12/28/17 and JOSE aneurysm clippingon 12/29/2017. HH1, mF3. Ms Dillon is slightly sleepy today, by reports she is improved from last week. She is easily aroused by voice and conversant but her eyes will remain closed unless she is prompted to open them. She is oriented to person, place, and purpose of being here " I fell in the bathroom". I reminded her that she had SAH and aneurysm clipping, to which she seemed unaware. Her strength was symmetric, she had no cranial nerve deficits. TCD's are unimpressive in the JOSE and MCA territories. She is on Keppra, with stopdate 01/12 She continues on nimodipine She is on oral salt, with eunatremia sodium goal SBP goal <170, as there was question of early vasospasm last week Currently she has mild metabolic acidosis HCO3 19, unexplained. Hemodilution HgB 8.7, no fever, leukocytosis, sodium wasting, or other signs of impending spasm. She has been restarted on methyldopa as a home med. Continue to hold diuretics from home: HCTZ and spironolactone. Last BM was this morning at 0500. Continue to monitor for vasospasm in the ICU. Past Medical History: Diagnosis Date DM (diabetes mellitus) (HCC) HTN (hypertension) I have seen, personally fully evaluated, and discussed patient with the NEICU team. I agree with the objective findings and agree with the plan of care as documented by the resident with the exceptions noted. The patient is critically ill with SAH. Active hospital problems include: Active Problems: Diabetes (HCC) Hypertension Subarachnoid hemorrhage (HCC) I spent 45 minutes (excluding time spent performing or supervising any procedures) providing and personally directing critical care services including -review of serial neurologic, hemodynamic, respiratory, telemetry, laboratory and imaging data -management of fluids/electrolytes, antibiotics, vasoactive medications, gas exchange/mechanical ventilation, sepsis protocol, ICU prophylaxis, and ICU core measures -pain/sedation/delirium management -medication review and management -organization and coordination of care with patient (or surrogate), ICU team and consulting services. -directing the formulation of the overall plan of care outlined below. Dispo: This patient is critically ill with dysfunction of at least one organ system and is at risk for life threatening deterioration necessitating complex medical decision making and ongoing provisionof ICU care. Staff name: Jermaine Chua MD Date: 01/04/2018 ASSESSMENT/PLAN Patient Active Problem List Diagnosis Date Noted Diabetes (HCC) 12/29/2017 Hypertension 12/29/2017 Subarachnoid hemorrhage (HCC) 12/29/2017 Yarely Byrd a 72 y.o.femalewith PMH DM, HTN who presented to OSH after fall in shower atapproximately 2014 on 12/28. Developed pain in back of head , twisted to turn water off and lost consciousness. Woke up less than 10min after event, got herself up and got her . CT head obtained with evidence of SAH, transferred to [facility] for management. AComm aneurysm clipped in OR on 12/29. Hospital and ICU course: 12/29: Transfer from [place], [place] with SAH. Neurologically intact. S/p craniotomy for aneurysm repair 12/30: Patient is confused and impulsive, but no focal neuro deficits. Telemetry with PVCs, negative troponin. Lytes replaced 12/31: Less verbal today but no focal deficits. Decadron x24 hours. 01/01: More awake, oriented x2 01/02: Continued impulsivity, pulling at surgical sutures requiring mittens, restraint, CO. 01/03: No acute events overnight. Neuro: Subarachnoid hemorrhage, aneurysmal S/p craniotomy, ACOMM aneurysm repair 12/29; 1 MF 3 Cerebral Angio 12/29: 1) A-comm artery aneurysm measuring 6.03 mm in height, 5.11 mm in width, and 2.78 mm at the neck with a moderate size Espinoza's point 2) Right P-comm artery aneurysm measuring 3.27 mm in width, 3.11 mm in height, and 2.76 mm at the neck. 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 Disposition/Family: NEICU monitoring Primary service: NCC Consults: Neurosurgery SUBJECTIVE Yarely Dillon is a 72 y.o. female. Overnight Events: No new events noted. OBJECTIVE Vital Signs: Last Filed Vital Signs: 24 Hour Range BP: 168/59 (01/04 900) Temp: 37.3 C (99.1 F) (01/04 800) Pulse: 67 (01/04 900) Respirations: 29 PER MINUTE (01/04 900) SpO2: 98 % (01/04 900) O2 Delivery: None (Room Air) (01/04 900) BP: (128-174)/(40-101) Temp: [36.8 C (98.2 F)-37.3 C (99.1 F)] Pulse: [57-81] Respirations: [13 PER MINUTE-30 PER MINUTE] SpO2: [95 %-100 %] O2 Delivery: None (Room Air) Intensity Pain Scale 0-10 (Pain 1): (not recorded) Vitals: 12/29/17 1800 12/30/17 1500 Weight: 99.8 kg (220 lb 0.3 oz) 99.8 kg (220 lb 0.3 oz) Artificial airway: None Ventilator/ Respiratory Therapy: No Vent weaning trial: Not applicable Lines: Peripheral Line Drains: None Intake/Output Summary: (Last 24 hours) Intake/Output Summary (Last 24 hours) at 01/04/18 1013 Last data filed at 01/04/18 0900 Gross per 24 hour Intake 2020 ml Output 750 ml Net 1270 ml Stool Occurrence: 1 Physical Exam: Blood pressure 168/59, pulse 67, temperature 37.3 C (99.1 F), height 165.1 cm (65"), weight 99.8kg (220 lb 0.3 oz), SpO2 98 %. Karl coma score: E: 3 - Opens eyes to loud noise or command M: 6 - Follows simple motor commands V: 4 - Seems confused, disoriented Neuro: Mental Status: Lethargic; oriented to person, place, month and year Cranial Nerves: - Pupil exam: Size: 3 mm Reactivity: brisk - EOM: intact - Grimace/facial movement: present Motor: Follows commands in all extremities RUE: Strength: 4/5 RLE: Strength: 4/5 LUE: Strength: 4/5 LLE: Strength: 4/5 Sensory: normal Lungs: clear to auscultation bilaterally Pulmonary: Respiratory status: Stable Heart: S1, S2 normal Abdomen: soft, non-tender. Bowel sounds normal. No masses, no organomegaly Extremities: extremities normal, atraumatic, no cyanosis or edema Skin: Skin color, texture, turgor normal. No rashes or lesions Point of Care Testing: (Last 24 hours) Glucose: (!) 157 (01/04/18 0345) POC Glucose (Download): (!) 153 (01/04/18 0696) Lab Review: Pertinent labs reviewed Radiology and Other Diagnostic Procedures Review: Pertinent radiologic and diagnostic procedures reviewed. Jermaine Chua MD Date: 01/04/[phone] Tobias Chapman MD - 01/04/2018 6:32 AM CSTFormatting of this note may be different from the original. Neurosurgery Progress Note SUBJECTIVE: No acute concerns OBJECTIVE: Vital Signs: 24 Hour Range BP: (128-174)/(40-101) Temp: [36.5 C (97.7 F)-37.1 C (98.8 F)] Pulse: [57-81] Respirations: [13 PER MINUTE-30 PER MINUTE] SpO2: [95 %-100 %] O2 Delivery: None (Room Air) Sleeping, awakens to voice, minimal eye opening Able to state name, no other orientation questions FC x [address] ASSESSMENT/PLAN: 72 y.o. female s/p Left frontal craniotomy for clipping acomm aneurysm. Active Hospital Problems Diagnosis Diabetes (HCC) Hypertension Subarachnoid hemorrhage (HCC) PBD #7; POD #6 Left ACOMM aneurysm clipping (Dr. Mercer) Rusty, Amarilysotop SBP < 180 TCD 01/03 1.1, 1.6 Na 135, PO Salt Speech- okay for regular diet/thin liquids Safety Watch Continue provigil PT/OT mobilization - inpatient versus home with family assist Continue ICU care SQ heparin Prophylaxis: A)GI: PPI B) Lines: None; PIV C) Urinary Catheter: No D) Antibiotic Usage: No E) VTE: Pharmacological prophylaxis; SQ Heparin and Mechanical prophylaxis; Sequential compression device F) Restraints: Patient assessed for need for restraints. Tobias Chapman MD Please call [phone] with any questions. Jazzy Dasilva APRN - 01/04/2018 6:09 AM CSTFormatting of this note may be different from the original. Neuro Critical Care Progress Note Yarely Dillon Admission Date: 12/29/2017 LOS: 6 days Full Code ASSESSMENT/PLAN Patient Active Problem List Diagnosis Date Noted Diabetes (HCC) 12/29/2017 Hypertension 12/29/2017 Subarachnoid hemorrhage (HCC) 12/29/2017 Yarely Byrd a 72 y.o.femalewith PMH DM, HTN who presented to OSH after fall in shower atapproximately 2014 on 12/28. Developed pain in back of head , twisted to turn water off and lost consciousness. Woke up less than 10min after event, got herself up and got her . CT head obtained with evidence of SAH, transferred to [facility] for management. AComm aneurysm clipped in OR on 12/29. Hospital and ICU course: 12/29: Transfer from [place], [place] with SAH. Neurologically intact. S/p craniotomy for aneurysm repair 12/30: Patient is confused and impulsive, but no focal neuro deficits. Telemetry with PVCs, negative troponin. Lytes replaced 12/31: Less verbal today but no focal deficits. Decadron x24 hours. 01/01: More awake, oriented x2 01/02: Continued impulsivity, pulling at surgical sutures requiring mittens, restraint, CO. 01/03: No acute events overnight. Neuro: Subarachnoid hemorrhage, aneurysmal S/p craniotomy, ACOMM aneurysm repair 12/29; HH 1 MF 3 Cerebral Angio 12/29: 1) A-comm artery aneurysm measuring 6.03 mm in height, 5.11 mm in width, and 2.78 mm at the neck with a moderate size Espinoza's point 2) Right P-comm artery aneurysm measuring 3.27 mm in width, 3.11 mm in height, and 2.76 mm at the neck. 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 Suppository prn - Last BM 01/04 Heme: Anemia, likely secondary to blood loss - Hb 8.8, Plt 150 - SQ heparin DVT ppx - Assess for coagulopathy, maintain platelets above 100k, INR <1.5 ID: - Afebrile, WBC 6.9 - UA 12/31 no e/o infection - Aim for normothermia, Temp <38.3 celsius, normothermia protocol if febrile Renal: Elevated BUN, possible hypovolemia - Cr 0.74, BUN 23 - Voiding spontaneously - Aim for euvolemia Intake/Output Summary (Last 24 hours) at 01/04/18 0702 Last data filed at 01/04/18 0500 Gross per 24 hour Intake 1380 ml Output 850 ml Net 530 ml Endocrine: Hx DM - A1C 6.7% - Holding [employer] INS[employer]OR metformin-glyburide 2.5-500 1 tab BID - Blood glucose goal 100-180mg/dl - HDCF FEN: NA 135, K 4.3, Cl 109, Mg 1.8, Phos 3.1 - Electrolyte replacement protocol in place - Magnesium goal >2.0, i-Dennis goal > 1.0, Potassium goal >4.0 mEq/L Prophylaxis Review: Prophylaxis: A) GI: None B) Lines:Peripheral IV only C) Urinary Catheter:no velázquez catheter D) Antibiotic Usage:No E) VTE:SCDs, SQ heparin F) Isolation: None G)Seizures: Keppra for ppx I) Restraints: Patient assessed for need for restraints. Disposition/Family: NEICU monitoring Primary service: NCC Consults: Neurosurgery SUBJECTIVE Yarely Dillon is a 72 y.o. female. Overnight Events: No new events noted. OBJECTIVE Vital Signs: Last Filed Vital Signs: 24 Hour Range BP: 149/41 (01/04 0500) Temp: 36.8 C (98.2 F) (01/04 0400) Pulse: 58 (01/04 500) Respirations: 16 PER MINUTE (01/04 500) SpO2: 95 % (01/04 500) O2 Delivery: None (Room Air) (01/04 500) BP: (128-174)/(40-101) Temp: [36.5 C (97.7 F)-37.1 C (98.8 F)] Pulse: [57-81] Respirations: [13 PER MINUTE-30 PER MINUTE] SpO2: [95 %-100 %] O2 Delivery: None (Room Air) Intensity Pain Scale 0-10 (Pain 1): (not recorded) Vitals: 12/29/17 1800 12/30/17 1500 Weight: 99.8 kg (220 lb 0.3 oz) 99.8 kg (220 lb 0.3 oz) Artificial airway: None Ventilator/ Respiratory Therapy: No Vent weaning trial: Not applicable Lines: Peripheral Line Drains: None Intake/Output Summary: (Last 24 hours) Intake/Output Summary (Last 24 hours) at 01/04/18 0702 Last data filed at 01/04/18 0500 Gross per 24 hour Intake 1380 ml Output 850 ml Net 530 ml Stool Occurrence: 1 Physical Exam: Blood pressure 149/41, pulse 58, temperature 36.8 C (98.2 F), height 165.1 cm (65"), weight 99.8kg (220 lb 0.3 oz), SpO2 95 %. Karl coma score: E: 3 - Opens eyes to loud noise or command M: 6 - Follows simple motor commands V: 4 - Seems confused, disoriented Neuro: Mental Status: Lethargic; oriented to person, place, month and year Cranial Nerves: - Pupil exam: Size: 3 mm Reactivity: brisk - EOM: intact - Grimace/facial movement: present Motor: Follows commands in all extremities RUE: Strength: 4/5 RLE: Strength: 4/5 LUE: Strength: 4/5 LLE: Strength: 4/5 Sensory: normal Lungs: clear to auscultation bilaterally Pulmonary: Respiratory status: Stable Heart: S1, S2 normal Abdomen: soft, non-tender. Bowel sounds normal. No masses, no organomegaly Extremities: extremities normal, atraumatic, no cyanosis or edema Skin: Skin color, texture, turgor normal. No rashes or lesions Point of Care Testing: (Last 24 hours) Glucose: (!) 157 (01/04/18 0345) POC Glucose (Download): (!) 206 (01/03/182041) Lab Review: Pertinent labs reviewed Radiology and Other Diagnostic Procedures Review: Pertinent radiologic and diagnostic procedures reviewed. I spent 31 minutes managing the care of this patient. Yarely Dillon is critically ill with SAH. Cares included: detailed neurologic and systems exam, medication review, laboratory data review and interpretation, electrolyte management, review of available imaging, DVT/PE prophylaxis review, diet review , activity review and coordination of care with consulted teams Jazzy Dasilva, ANIMAL SHELTER WORKER Date: 01/04/[phone] Rory Edge RN - 01/03/2018 6:05 PM CSTChamoy Nixon (Neuro surg) paged and discussed adding medication for patient d/t patients frequent attempts of picking at her incision site. MD states he will not prescribe meds because patient is not a harm to self or others, patient is redirectable and medications are not a justified at this time. Patient is redirectable but as soon as RN leave room patient tries to pick at incision or attempt toremove restraints. Video CO in use at this time to help redirect patient to not pick at incision.Rory Edge RN - 01/03/2018 4:31 PM CSTI agree with previous RN (Rosa Elena Meade) shift assessments unless otherwise noted.Tiffanie Louie MD - 01/03/2018 8:52 AM CSTFormatting of this note may be different from the original. Neurosurgery Progress Note SUBJECTIVE: No complaints this morning. Sleeping on exam but will answer questions. OBJECTIVE: Vital Signs: 24 Hour Range BP: (107-176)/(40-117) Temp: [36.5 C (97.7 F)-37.2 C (99 F)] Pulse: [58-87] Respirations: [12 PER MINUTE-35 PER MINUTE] SpO2: [96 %-100 %] O2 Delivery: None (Room Air) Sleeping, awakens to voice, minimal eye opening Able to state name, no other orientation questions FC x [address] ASSESSMENT/PLAN: 72 y.o. female s/p Left frontal craniotomy for clipping acomm aneurysm. Active Hospital Problems Diagnosis Diabetes (HCC) Hypertension Subarachnoid hemorrhage (HCC) PBD #6; POD #5 Left ACOMM aneurysm clipping (Dr. Mercer) Олег Ojeda SBP < 180 TCD 01/02 1.1, 1.6 Na 136, PO Salt started Speech- okay for regular diet/thin liquids Safety Watch Continue provigil PT/OT mobilization - inpatient versus home with family assist Continue ICU care SQ heparin Prophylaxis: A)GI: PPI B) Lines: None; PIV C) Urinary Catheter: No D) Antibiotic Usage: No E) VTE: Pharmacological prophylaxis; SQ Heparin and Mechanical prophylaxis; Sequential compression device F) Restraints: Patient assessed for need for restraints. Tiffanie Louie MD Please call [phone] with any questions. Risa Jonas MD - 01/03/2018 6:09 AM CSTFormatting of this note may be different from the original. Neuro Critical Care Progress Note Yarely Dillon Admission Date: 12/29/2017 LOS: 5 days Full Code ASSESSMENT/PLAN Patient Active Problem List Diagnosis Date Noted Diabetes (HCC) 12/29/2017 Hypertension 12/29/2017 Subarachnoid hemorrhage (HCC) 12/29/2017 Yarely Dillon is a 72 y.o. female with PMH DM, HTN who presented to OSH after fall in shower at approximately 2014 on 12/28. Developed pain in back of head, twisted to turn water off and lost consciousness. Woke up less than 10min after event, got herself up and got her . Had nausea and vomiting post-LOC, improved with medications in ED. Denies confusion, weakness post- LOC. CT head obtained with evidence of SAH, transferred to [facility] for management of traumatic vs aneurysmal SAH. Hospital and ICU course: 12/29: Transfer from [place], [place] with SAH. Neurologically intact. S/p craniotomy for aneurysm repair 12/30: Patient is confused and impulsive, but no focal neuro deficits. Telemetry with PVCs, negative troponin. Lytes replaced 12/31: Less verbal today but no focal deficits. Decadron x24 hours. 01/01: More awake, oriented x2 01/02: Continued impulsivity, pulling at surgical sutures requiring mittens, restraint, CO. 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 - 12/30 CTA -Interval left pterional craniotomy and anterior communicating artery aneurysm clipping.No refilling of the aneurysm identified.Slight decrease in size of the posterior commuting arteries, which may be due to contrast bolus timing or early mild vasospasm. - Solis and Erickson Grade 1 - Modified Choudhary Grade 3 - Nimodipine for vasospasm prophylaxis - Sodium Goal : 135-145 - PO sodium chloride 34 meq Q6H started by NSG - Finished Decadron 4mg x 5 doses 01/01 - Keppra 500 BID for post-op ppx - Modafinil 100mg daily started by NSG - TCDs daily - Requiring mittens, restraint, CO for impulsivity due to pulling at surgical sutures - Started melatonin 3mg qHS - PT/OT/FREIGHT SOLICITOR for cognitive eval - Neuro-ICU monitoring, neurochecks q 2 hrs, parameters for Prevention of secondary brain injury(avoid hypotension, hypoxia, fever, hyperglycemia, significant anemia, diagnose and treatment of seizures,electrolyte abnormalities ) Sedation, pain - No 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 - PRN oxycodone, tylenol available - Monitor for delirium- will decrease neuro checks to Q2H (okay with NSG) and schedule melatonin qHS Cardiac Hx HTN - Holding AIR[employer]ANDING GEAR INSPECTOR spironolactone/HCTZ 25-25mg QD - Continue AIR[employer]ANDING GE[employer] INSPECTOR Methyldopa 250 mg BID - Prn labetalol, hydralazine for BP goal - liberalized SBP goal <170, MAP goal > 65 Respiratory: - No acute issues, on RA - Spo2 goal >92% GI - No acute issues - Passed bedside swallow, will monitor PO intake, Boost shakes BID - Continue calorie count - Bowel regimen, ensure daily BM. Suppository prn - Last BM 01/03 Heme: Anemia, likely secondary to blood loss. Thrombocytopenia, improved - Hb 10.5, Plt 210 - Assess for coagulopathy, maintain platelets above 100k, INR <1.5 ID: - Afebrile, leukocytosis resolved - UA 12/31 no e/o infection - Aim for normothermia, Temp <38.3 celsius, normothermia protocol if febrile Renal: Elevated BUN, possible hypovolemia - BUN trended up yesterday to 40 --> 31 after IVF - Voiding spontaneously so ?I/O accuracy - Aim for euvolemia, I/O balance +900cc over 24 hrs - Removed velázquez 12/30 - Pt voiding on own- increased frequency (likely 2/2 encephalopathy and impulsivity at night) with PVR <20cc Endocrine: Hx DM - A1C 6.7% - Holding [employer]ING [employer] INSPECTOR metformin-glyburide 2.5-500 1 tab BID - Blood glucose goal 100-180mg/dl - Continue HDCF, will consider adding Lantus if not well controlled this PM FEN: - Diabetic diet with calorie count - No mIVF - Magnesium goal >2.0, i-Dennis goal > 1.0, Potassium goal >4.0 mEq/L Prophylaxis Review: Prophylaxis: A) GI: None B) Lines: Peripheral IV only C) Urinary Catheter: no velázquez catheter D) Antibiotic Usage: No E) VTE: SCDs, SQ heparin F) Isolation: None G)Seizures: Keppra for ppx I) Restraints: Patient assessed for need for restraints. Disposition/Family: NEICU monitoring Primary service: NCC Consults: Neurosurgery Patient seen and discussed with Dr. Candice Jonas MD Pager [phone] SUBJECTIVE Yarely Dillon is a 72 y.o. female. No acute events overnight. She continues to be oriented but impulsive, requiring a CO and soft restraints. She is sleepy this AM but following commands. She deniesfevers, abdominal pain, chest pain, and SOB. Past Medical History: Diagnosis Date DM (diabetes mellitus) (HCC) HTN (hypertension) Past Surgical History: Procedure Laterality Date HX TONSILLECTOMY Past Medical History: Diagnosis Date DM (diabetes mellitus) (HCC) HTN (hypertension) Past Surgical History: Procedure Laterality Date HX TONSILLECTOMY History reviewed. No pertinent family history. Social History Substance Use Topics Smoking status: Former Smoker Smokeless tobacco: Never Used Alcohol use No Immunizations (includes history and patient reported): There is no immunization history on file for this patient. Allergies: Codeine and Penicillins Medications Scheduled Meds: docusate (COLACE) capsule 100 mg 100 mg Oral BID heparin (porcine) PF syringe 5,000 Units 5,000 Units Subcutaneous Q8H insulin aspart (NOVOLOG FLEXPEN) injection PEN 0-28 Units 0-28 Units Subcutaneous ACHS levETIRAcetam (KEPPRA) tablet 500 mg 500 mg Oral BID melatonin tablet 3 mg 3 mg Oral QHS methyldopa (ALDOMET) tablet 250 mg 250 mg Oral BID milk of magnesia (CONC) oral suspension 10 mL 10 mL Oral QDAY modafinil (PROVIGIL) tablet 100 mg 100 mg Oral QDAY niMODipine (NYMALIZE) 3 mg/ mL solution 60 mg 60 mg Oral Q4H senna/docusate (SENOKOT-S) tablet 1 tablet 1 tablet Oral BID Continuous Infusions: lactated ringers infusion 1,000 mL (01/03/18 0324) PRN and Respiratory Meds:acetaminophen Q4H PRN OR acetaminophen Q4H PRN, bisacodyl QDAY PRN, calcium gluconate IVPB PRN (Full Stack Python Developer from Rx) AND Ionized Calcium PRN AND Notify Physician Ongoing, hydrALAZINE Q6H PRN, labetalol (NORMODYNE; TRANDATE) injection Q15 MIN PRN, magnesium sulfate PRN AND Magnesium PRN AND Notify Physician Ongoing, ondansetron (ZOFRAN) IV Q6H PRN, oxyCODONE Q4H PRN, potassium chloride SR PRN OR potassium chloride PRN, sodium phosphate IVPB PRN (Full Stack Python Developer from Rx) AND Phosphorus PRN AND* * Notify Physician Ongoing Review of Systems: See subjective OBJECTIVE Vital Signs: Last Filed Vital Signs: Last 24 Hours BP: 157/106 (01/03 400) Temp: 37.2 C (99 F) (01/03 0000) Pulse: 76 (01/030) Respirations: 12 PER MINUTE (01/03 400) SpO2: 99 % (01/03 400) O2 Delivery: None (Room Air) (01/03 400) BP: (107-176)/(40-117) Temp: [36.6 C (97.8 F)-37.2 C (99 F)] Pulse: [53-87] Respirations: [12 PER MINUTE-35 PER MINUTE] SpO2: [92 %-100 %] O2 Delivery: None (Room Air) Intensity Pain Scale 0-10 (Pain 1): (not recorded) Vitals: 12/29/17 1800 12/30/17 1500 Weight: 99.8 kg (220 lb 0.3 oz) 99.8 kg (220 lb 0.3 oz) Critical Care Vitals: Intake/Output Summary: (Last 24 hours) Intake/Output Summary (Last 24 hours) at 01/03/18 0609 Last data filed at 01/03/18 0500 Gross per 24 hour Intake 1858 ml Output 950 ml Net 908 ml Stool Occurrence: 1 Physical Exam: General: sleepy, laying in bed, no acute distress Lungs: clear to auscultation bilaterally Heart: regular rate and rhythm, S1, S2 normal, no murmur, click, rub or gallop Abdomen: soft, non-tender. Bowel sounds normal. Extremities: extremities normal, atraumatic, no cyanosis. 1+ BLE edema Pulses: 2+ DP pulse bilaterally Skin: Contusion to right side (hip and lower leg). Left eye eccymosis (improved swelling) Neuro: Mental Status: sleepy, follows commands. Oriented to person, place ("hospital" ) and time GCS: E: 3 - Opens eyes to command, M: 6 - Follows simple motor commands, V: 4 - confused Cranial Nerves: Cranial nerves 2-12 INTACT. - Pupil exam: 2mm b/l Reactivity: Brisk - EOM: intact Motor: RUE: Strength: 4/5 RLE: Strength: 4/5 LUE: Strength: 4/5 LLE: Strength: 4/5 Sensory: normal Lab Review: 24-hour labs: Results for orders placed or performed during the hospital encounter of (from the past 24 hour(s)) POC GLUCOSE Collection Time: 01/02/18 6:57 AM Result Value Ref Range Glucose, POC 136 (H) 70 - 100 MG/DL POC GLUCOSE Collection Time: 01/02/18 11:10 AM Result Value Ref Range Glucose, POC 203 (H) 70 - 100 MG/DL POC GLUCOSE Collection Time: 01/02/18 5:22 PM Result Value Ref Range Glucose, POC 199 (H) 70 - 100 MG/DL POC GLUCOSE Collection Time: 01/02/18 8:43 PM Result Value Ref Range Glucose, POC 218 (H) 70 - 100 MG/DL BASIC METABOLIC PANEL Collection Time: 01/03/18 3:40 AM Result Value Ref Range Sodium 136 (L) 137 - 147 MMOL/L Potassium 4.2 3.5 - 5.1 MMOL/L Chloride 112 (H) 98 - 110 MMOL/L CO2 18 (L) 21 - 30 MMOL/L Anion Gap 6 3 - 12 Glucose 167 (H) 70 - 100 MG/DL Blood Urea Nitrogen 31 (H) 7 - 25 MG/DL Creatinine 0.84 0.4 - 1.00 MG/DL Calcium 8.3 (L) 8.5 - 10.6 MG/DL eGFR Non >60 >60 mL/min eGFR >60 >60 mL/min MAGNESIUM Collection Time: 01/03/18 3:40 AM Result Value Ref Range Magnesium 2.0 1.6 - 2.6 mg/dL PHOSPHORUS Collection Time: 01/03/18 3:40 AM Result Value Ref Range Phosphorus 3.1 2.0 - 4.0 MG/DL IONIZED CALCIUM Collection Time: 01/03/18 3:40 AM Result Value Ref Range Ionized Calcium 1.14 1.0 - 1.3 MMOL/L Radiology and Other Diagnostic Procedures: Reviewed. Associated attestation - Ana Harvey MD - 01/03/2018 1:43 PM CSTFormatting of this note may be different from the original. ATTESTATION I have seen, personally fully evaluated, and discussed patient with Dr. Jonas. I agree with the objective findings and agree with the plan of care as documented by the resident with the exceptions noted. The patient is critically ill with SAH - from aneurysm rupture which was treated with clipping. Continue to monitor for vasospasm. Continue therapies for rehab. I spent 35 minutes (excluding time spent performing or supervising any procedures ) providing and personally directing critical careservices, including reviewing imaging and laboratory results. Staff name: Ana Harvey MD Date: 01/03/2018 Nata Thayer DO - 01/02/2018 11:28 AM CSTFormatting of this note may be different from the original. Neuro Critical Care Progress Note Yarely Dillon Admission Date: 12/29/2017 LOS: 4 days Full Code ASSESSMENT/PLAN Patient Active Problem List Diagnosis Date Noted Subarachnoid hemorrhage (HCC) 12/29/2017 Priority: High Diabetes (HCC) 12/29/2017 Hypertension 12/29/2017 Yarely Dillon is a 72 y.o. female with PMH DM, HTN who presented to OSH after fall in shower at approximately 2015 on 12/28. Developed pain in back of head, twisted to turn water off and lost consciousness. Woke up less than 10min after event, got herself up and got her . Had nausea and vomiting post-LOC, improved with medications in ED. Denies confusion, weakness post- LOC. CT head obtained with evidence of SAH, transferred to [facility] for management of traumatic vs aneurysmal SAH. Hospital and ICU course: 12/29: Transfer from [place], [place] with SAH. Neurologically intact. S/p craniotomy for aneurysm repair 12/30: Patient is confused and impulsive, but no focal neuro deficits. Telemetry with PVCs, negative troponin. Lytes replaced 12/31: Less verbal today but no focal deficits. Decadron x24 hours. 01/01: More awake, oriented x2 01/02: Continued impulsivity, pulling at surgical sutures requiring mittens, restraint, CO. 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 - 12/30 CTA -Interval left pterional craniotomy and anterior communicating artery aneurysm clipping.No refilling of the aneurysm identified.Slight decrease in size of the posterior commuting arteries, which may be due to contrast bolus timing or early mild vasospasm. 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 Suppository prn Heme: Anemia, likely secondary to blood loss. Thrombocytopenia, improved - Hb 8.8, Plt 156 - Assess for coagulopathy, maintain platelets above 100k, INR <1.5 ID: - Afebrile, leukocytosis resolved - UA 12/31 no s/o infection - Aim for normothermia, Temp <38.3 celsius, normothermia protocol if febrile Renal: Elevated BUN, possible hypovolemia - BUN trending up, Cr stable. Possibly due to poor PO intake due to mental status. - Voiding spontaneously so ?I/O accuracy - Add LR for 1L at 60mL/hr. Reassess after 1L - Aim for euvolemia, I/O balance n/a over 24 hrs - Removed velázquez 2 - Pt voiding on own- increased frequency (likely 2/2 encephalopathy and impulsivity) with PVR <20cc Endocrine: Hx DM - A1C 6.7% - Holding [employer] GE[employer] INSPECTOR metformin-glyburide 2.5-500 1 tab BID - Blood glucose goal 100-180mg/dl - Continue HDCF, monitor closely FEN: - Diabetic diet with calorie count - LR for 1L at 60mL/hr for possible hypovolemia - Magnesium goal >2.0, i-Dennis goal > 1.0, Potassium goal >4.0 mEq/L Prophylaxis Review: Prophylaxis: A) GI: None B) Lines: Peripheral IV only C) Urinary Catheter: no velázquez catheter D) Antibiotic Usage: No E) VTE: SCDs, SQ heparin F) Isolation: None G)Seizures: Keppra I) Restraints: Patient assessed for need for restraints. Disposition/Family: NEICU monitoring Primary service: NCC Consults: Neurosurgery Patient seen and discussed with Dr. Harvey SUBJECTIVE Yarely Dillon is a 72 y.o. female. No acute events overnight. She continues to be oriented but impulsive. Pulling at sutures overnight. Past Medical History: Diagnosis Date DM (diabetes mellitus) (HCC) HTN (hypertension) Past Surgical History: Procedure Laterality Date HX TONSILLECTOMY Past Medical History: Diagnosis Date DM (diabetes mellitus) (HCC) HTN (hypertension) Past Surgical History: Procedure Laterality Date HX TONSILLECTOMY History reviewed. No pertinent family history. Social History Substance Use Topics Smoking status: Former Smoker Smokeless tobacco: Never Used Alcohol use No Immunizations (includes history and patient reported): There is no immunization history on file for this patient. Allergies: Codeine and Penicillins Medications Scheduled Meds: docusate (COLACE) capsule 100 mg 100 mg Oral BID heparin (porcine) PF syringe 5,000 Units 5,000 Units Subcutaneous Q8H insulin aspart (NOVOLOG FLEXPEN) injection PEN 0-28 Units 0-28 Units Subcutaneous ACHS levETIRAcetam (KEPPRA) tablet 500 mg 500 mg Oral BID methyldopa (ALDOMET) tablet 250 mg 250 mg Oral BID milk of magnesia (CONC) oral suspension 10 mL 10 mL Oral QDAY modafinil (PROVIGIL) tablet 100 mg 100 mg Oral QDAY niMODipine (NYMALIZE) 3 mg/ mL solution 60 mg 60 mg Oral Q4H senna/docusate (SENOKOT-S) tablet 1 tablet 1 tablet Oral BID Continuous Infusions: lactated ringers infusion Stopped (01/02/18 1122) PRN and Respiratory Meds:acetaminophen Q4H PRN OR acetaminophen Q4H PRN, bisacodyl QDAY PRN, calcium gluconate IVPB PRN (Full Stack Python Developer from Rx) AND Ionized Calcium PRN AND Notify Physician Ongoing, hydrALAZINE Q6H PRN, labetalol (NORMODYNE; TRANDATE) injection Q15 MIN PRN, magnesium sulfate PRN AND Magnesium PRN AND Notify Physician Ongoing, ondansetron (ZOFRAN) IV Q6H PRN, oxyCODONE Q4H PRN, potassium chloride SR PRN OR potassium chloride PRN, sodium phosphate IVPB PRN (Full Stack Python Developer from Rx) AND Phosphorus PRN AND* * Notify Physician Ongoing Review of Systems: See subjective OBJECTIVE Vital Signs: Last Filed Vital Signs: Last 24 Hours BP: 143/52 (01/02 1100) Temp: 36.6 C (97.8 F) (01/02 0800) Pulse: 60 (01/02 1100) Respirations: 16 PER MINUTE (01/02 1100) SpO2: 97 % (01/02 1100) O2 Delivery: None (Room Air) (01/02 1100) BP: (123-188)/(40-118) Temp: [36.5 C (97.7 F)-36.6 C (97.9 F)] Pulse: [52-81] Respirations: [9 PER MINUTE-29 PER MINUTE] SpO2: [92 %-99 %] O2 Delivery: None (Room Air) Intensity Pain Scale 0-10 (Pain 1): (not recorded) Vitals: 12/29/17 1800 12/30/17 1500 Weight: 99.8 kg (220 lb 0.3 oz) 99.8 kg (220 lb 0.3 oz) Critical Care Vitals: Intake/Output Summary: (Last 24 hours) Intake/Output Summary (Last 24 hours) at 01/02/18 1128 Last data filed at 01/02/18 0900 Gross per 24 hour Intake 975 ml Output 1000 ml Net -25 ml Stool Occurrence: 1 Physical Exam: General: sleepy, laying in bed, no acute distress Lungs: clear to auscultation bilaterally Heart: regular rate and rhythm, S1, S2 normal, no murmur, click, rub or gallop Abdomen: soft, non-tender. Bowel sounds normal. Extremities: extremities normal, atraumatic, no cyanosis. Trace pedal edema Pulses: 2+ DP pulse bilaterally Skin: Contusion to right side (hip and lower leg). Left eye eccymosis Neuro: Mental Status: sleepy, follows commands. Oriented to person, place ("hospital" ) and time GCS: E: 3 - Opens eyes to command, M: 6 - Follows simple motor commands, V: 4 - confused Cranial Nerves: Cranial nerves 2-12 INTACT. - Pupil exam: 2mm b/l Reactivity: Brisk - EOM: intact Motor: RUE: Strength: 4/5 RLE: Strength: 4/5 LUE: Strength: 4/5 LLE: Strength: 4/5 Sensory: normal Lab Review: 24-hour labs: Results for orders placed or performed during the hospital encounter of (from the past 24 hour(s)) POC GLUCOSE Collection Time: 01/01/18 11:34 AM Result Value Ref Range Glucose, POC 296 (H) 70 - 100 MG/DL POC GLUCOSE Collection Time: 01/01/18 4:19 PM Result Value Ref Range Glucose, POC 265 (H) 70 - 100 MG/DL POC GLUCOSE Collection Time: 01/01/18 8:07 PM Result Value Ref Range Glucose, POC 126 (H) 70 - 100 MG/DL CBC AND DIFF Collection Time: 01/02/18 3:20 AM Result Value Ref Range White Blood Cells 10.6 4.5 - 11.0 K/UL RBC 2.91 (L) 4.0 - 5.0 M/UL Hemoglobin 8.8 (L) 12.0 - 15.0 GM/DL Hematocrit 26.4 (L) 36 - 45 % MCV 90.9 80 - 100 FL MCH 30.3 26 - 34 PG MCHC 33.4 32.0 - 36.0 G/DL RDW 13.8 11 - 15 % Platelet Count 156 150 - 400 K/UL MPV 7.4 7 - 11 FL Neutrophils 73 41 - 77 % Lymphocytes 21 (L) 24 - 44 % Monocytes 6 4 - 12 % Eosinophils 0 0 - 5 % Basophils 0 0 - 2 % Absolute Neutrophil Count 7.60 (H) 1.8 - 7.0 K/UL Absolute Lymph Count 2.20 1.0 - 4.8 K/UL Absolute Monocyte Count 0.70 0 - 0.80 K/UL Absolute Eosinophil Count 0.00 0 - 0.45 K/UL Absolute Basophil Count 0.00 0 - 0.20 K/UL BASIC METABOLIC PANEL Collection Time: 01/02/18 3:20 AM Result Value Ref Range Sodium 139 137 - 147 MMOL/L Potassium 4.2 3.5 - 5.1 MMOL/L Chloride 110 98 - 110 MMOL/L CO2 19 (L) 21 - 30 MMOL/L Anion Gap 10 3 - 12 Glucose 123 (H) 70 - 100 MG/DL Blood Urea Nitrogen 40 (H) 7 - 25 MG/DL Creatinine 0.92 0.4 - 1.00 MG/DL Calcium 8.3 (L) 8.5 - 10.6 MG/DL eGFR Non 60 (L) >60 mL/min eGFR >60 >60 mL/min MAGNESIUM Collection Time: 01/02/18 3:20 AM Result Value Ref Range Magnesium 2.1 1.6 - 2.6 mg/dL PHOSPHORUS Collection Time: 01/02/18 3:20 AM Result Value Ref Range Phosphorus 3.6 2.0 - 4.0 MG/DL IONIZED CALCIUM Collection Time: 01/02/18 3:20 AM Result Value Ref Range Ionized Calcium 1.18 1.0 - 1.3 MMOL/L POC GLUCOSE Collection Time: 01/02/18 6:57 AM Result Value Ref Range Glucose, POC 136 (H) 70 - 100 MG/DL POC GLUCOSE Collection Time: 01/02/18 11:10 AM Result Value Ref Range Glucose, POC 203 (H) 70 - 100 MG/DL Radiology and Other Diagnostic Procedures: Reviewed. Nata Thayer DO Associated attestation - Ana Harvey MD - 01/02/2018 12:41 PM CSTFormatting of this note may be different from the original. ATTESTATION I have seen, personally fully evaluated, and discussed patient with Dr. Thayer. I agree with the objective findings and agree with the plan of care as documented by the resident with the exceptions noted. The patient is critically ill with SAH, anuerysmal treated with clipping. Continue to monitor for vasospasm. I spent 35 minutes (excluding time spent performing or supervising any procedures) providing and personally directing critical care services, including reviewing imaging and laboratory results. Staff name: Ana Harvey MD Date: 01/02/2018 Tiffanie Louie MD - 01/02/2018 9:42 AM CSTFormatting of this note may be different from the original. Neurosurgery Progress Note SUBJECTIVE: Continues to pick at incision, restraints applied. OBJECTIVE: Vital Signs: 24 Hour Range BP: (125-188)/(40-118) Temp: [36.5 C (97.7 F)-36.6 C (97.9 F)] Pulse: [52-81] Respirations: [9 PER MINUTE-29 PER MINUTE] SpO2: [92 %-99 %] O2 Delivery: None (Room Air) Bright Awake, Oriented to name, not place FC x 4 EOMI Incision C/D/I, dermabond reapplied overnight Left eye ecchymosis improving ASSESSMENT/PLAN: 72 y.o. female s/p Left frontal craniotomy for clipping acomm aneurysm. Active Hospital Problems Diagnosis Diabetes (HCC) Hypertension Subarachnoid hemorrhage (HCC) PBD #5; POD #4 Left ACOMM aneurysm clipping (Dr. Mercer) Rusty, Nimotop SBP < 180 TCD 01/02 pending Na 139 Speech- okay for regular diet/thin liquids Safety Watch Provigil started to improve alertness PT/OT mobilization - inpatient versus home with family assist Continue ICU care SQ heparin Prophylaxis: A)GI: PPI B) Lines: None; PIV C) Urinary Catheter: No D) Antibiotic Usage: No E) VTE: Pharmacological prophylaxis; SQ Heparin and Mechanical prophylaxis; Sequential compression device F) Restraints: Patient assessed for need for restraints. Tiffanie Louie MD Please call [phone] with any questions. Brittney Cartwright, ERMELINDA - 01/02/2018 7:58 AM CSTPt. Continually picking at incision despite frequent reorientation and explanation. Small amount of serosanguinous drainage noted around incision. NEICU team notified, verbal order obtained to restrainpt.'s left wrist per EMR. Neurosurgery MD, Asim, notified of pt's condition and incision site. Verbal instruction obtained to apply dermabond and re-dress incision site. NEICU RN completed order via flowsheet. Will continue to monitor.Sylvia Antony - 01/01/2018 1:09 PM CSTSPEECH-LANGUAGE PATHOLOGY DAILY TREATMENT NOTE Patient seen 1x this date. Documentation reflects all daily treatment sessions. SUMMARY OF THERAPY SESSION: F/u this date to ensure for diet tolerance and ongoing cognitive-communicative evaluation. Pt lethargic throughout evaluation. RN reports diet tolerance this date. Will continue to follow, please see details below. RECOMMENDATIONS: 1:Continue w/ regular solids &thin liquids given 100% supervision. If overt s/s aspiration observed please cease p.o. Intake until pt's swallow can be re-evaluated by this department.Good oral care to minimize pt's risk of aspirating bacteria in oral secretions. Pills one at a time. 2: Recommend consistent supervisionupon discharge as anticipate patient's impaired safety awareness and/or problem solving &communication will impact their ability to call for help. Swallow Strategies: Supervision During Meals, Small Bites/Sips, Slow Rate of Intake; pt must be fully alert Goal : The pt will tolerate a regular diet w/ thin liquids w/ < 5% overt s/s aspiration. Met Comment: RN reports diet tolerance this date. Continue goal at this level to ensure accuracy Goal : The pt will participate in cognitive-communicative evaluation given mod cues to maintain attention. Partly met Comment: Mod cues required for attention throughout evaluation secondary to lethargy. RN reports impulsivity. Impulsivity appreciated during evaluation. Y/N questions: 04/01 Reading single words: 04/28 Sentence repetition: 06/01 Picture identification: 04/28 Problem-solving questions: Pt demonstrated limited thought flexibility despite prompts. 0/1 Continue to address this goal PLAN / RECOMMENDATIONS: Continue treatment 1-3x/week Therapist: Sylvia Antony M.A. CF-[employer]REIGHT SOLICITOR Pager: [phone] Weekend Acute Pager: [phone] Date: 01/01/2018 Mariah Hemphill OT - 01/01/2018 10:18 AM CSTFormatting of this note may be different from the original. OCCUPATIONAL THERAPY PROGRESS NOTE Patient Name: Yarely Dillon Room/Bed: [place] [address] Admitting Diagnosis: Ruptured Aneurysm Subarachnoid hemorrhage (HCC) Past Medical History: Diagnosis Date DM (diabetes mellitus) (HCC) HTN (hypertension) Mobility Progressive Mobility Level: Walk laps Distance Walked (feet): 250 ft Level of Assistance: Assist X1 Assistive Device: None Time Tolerated: 11-30 minutes Activity Limited By: Patient request to stop;Fatigue Subjective Pertinent Dx per Physician: 72 y.o female who presented to OSH after fall in shower on 2/5. Developed pain in back of head and lost consciousness, nausea and vomiting post-LOC. CT head obtained with evidence of SAH, transferred to [facility] for management of traumatic vs aneurysmal SAH. 12/29: OR for Left pterional craniotomy for clipping of AComm aneurysm. Precautions: Falls Pain / Complaints: Patient demonstrates no signs of pain Objective Psychosocial Status: Participates in Therapy with Encouragement;Lethargic Persons Present: PT ADL's Where Assessed: Standing at Sink Grooming Assist: Moderate Assist Grooming Deficits: Teeth Care;Brushing Hair (Assist to comb hair) Functional Transfer Assist: Minimal Assist Functional Transfer Deficits: Room mobility Comment: Patient ambulated in hallway to increase endurance for OOB activity. Patient required encouragement to keep going due to wanting to return to room. Patient seated in chair at end of session, TABS alarm on. Activity Tolerance Endurance: 2/ Tolerates 10-20 Minutes Exercise w/Multiple Rests Cognition Overall Cognitive Status: Impaired Problem Solving: Decreased Judgment/Safety Attention: Somnolent Education Persons Educated: Patient Barriers To Learning: Cognitive Deficits Interventions: Repetition of Instructions;Physical Cueing Teaching Methods: Verbal Instruction Patient Response: Return Demonstration;More Instruction Required Topics: Role of OT, Goals for Therapy;ADL Compensatory Techniques Goal Formulation: With Patient Assessment Assessment: Decreased ADL Status;Decreased Safe/Judg during ADL;Decreased Cognition;Decreased Endurance;Decreased Self-Care Trans;Decreased High-Level ADLs Prognosis: Good;w/Cont OT s/p Acute Discharge AM-PAC 6 Clicks Daily Activity Inpatient Putting on and taking off regular lower body clothes?: A Lot Bathing (Including washing, rinsing, drying): A Lot Toileting, which includes using toilet, bedpan, or urinal: A Lot Putting on and taking off regular upper body clothing: A Lot Taking care of personal grooming such as brushing teeth: A Little Eating meals?: A Little Daily Activity Raw Score: 14 Standardized (t-scale) score: 33.39 CMS 0-100% Score: 59.67 CMS G Code Modifier: CK Plan Treatment Interventions: ADL Retraining;Functional Transfer Training;Endurance Training;Cognitive Reorientation;Patient/Family Training;Equipment Evaluation/ Education;Neuromuscular Reeducation;Compensatory Technique Education OT Frequency: 3-5X/week Plan for next visit: Endurance training and activity tolerance with ADLs and functional transfers ADL Goals Patient Will Perform All ADL's: w/ Modified Kleberg, w/ Good Judgment/ Safety Functional Transfer Goals Pt Will Perform All Functional Transfers: Modified Independent, w/ Good Judgment /Safety OT Discharge Recommendations OT Discharge Recommendations: Inpatient Setting, Vs, Home with family assist ( dependent on patient hospital course and progress) Equipment Recommendations: Too early to be determined Therapist: Mariah Hemphill OTR/April 0271 Date: 01/01/2018Liliana Nobles PT - 01/01/2018 10:13 AM CSTPHYSICAL THERAPY PROGRESS NOTE MOBILITY: Mobility Progressive Mobility Level: Walk laps Distance Walked (feet): 250 ft Level of Assistance: Assist X1 Assistive Device: None Time Tolerated: 11-30 minutes Activity Limited By: Patient request to stop;Fatigue SUBJECTIVE: Subjective Significant hospital events: 72 y.o. female s/p fall at home; found to have SAH from ruputured aneurrsysm; s/p Left frontal craniotomy for clipping acomm aneurysm. Mental / Cognitive Status: Alert;Disoriented;To Place;To Situation;Inconsistent with Command Following Pain: Patient demonstrates no signs of pain Comments: PMH: parkinson's disease; diabetes, HTN, Ambulation Assist: Independent Mobility in Community without Device Patient Owned Equipment: None Home Situation: Lives with Family Type of Home: House Entry Stairs: 3-5 Stairs In-Home Stairs: Able to Live on One Level GAIT: Gait Gait Distance: 250 feet Gait: Assistance Level: Minimal Assist Gait: Assistive Device: Hand Hold Assist Gait: Descriptors: Pace: Slow;Pathway deviations;Variable step length Comments: Need encouragement to continue ambulation ; vital signs WNL. Activity Limited By: Patient Choice WHEELCHAIR MOBILITY: ACTIVITY/EXERCISE: EDUCATION: Education Persons Educated: Patient Patient Barriers To Learning: Confusion;Impaired Communication Interventions: Repetition of Instructions Teaching Methods: Verbal Instruction Patient Response: More Instruction Required Topics: Plan/Goals of PT Interventions;Mobility Progression;Safety Awareness;Up with Assist Only;Importance of Increasing Activity;Recommend Continued Therapy ASSESSMENT/PROGRESS: Assessment/Progress Impaired Mobility Due To: Decreased Strength;Impaired Balance;Safety Concerns; Decreased Activity Tolerance Assessment/Progress: Should Improve w/ Continued PT AM-PAC 6 Clicks Basic Mobility Inpatient Turning from your back to your side while in a flat bed without using bed rails : A lot Moving from lying on your back to sitting on the side of a flatbed without using bedrails : A Lot Moving to and from a bed to a chair (including a wheelchair): A Lot Standing up from a chair using your arms (e.g. wheelchair, or bedside chair): A Little To walk in hospital room: A Little Climbing 3-5 steps with a railing: A Little Raw Score: 15 Standardized (T-scale) Score: 36.97 Basic Mobility CMS 0-100%: 50.4 CMS G Code Modifier for Basic Mobility: CK GOALS: Goals Goal Formulation: With Patient Time For Goal Achievement: 7 days Pt Will Go Supine To/From Sit: w/ Stand By Assist Pt Will Transfer Sit to Stand: w/ Stand By Assist Pt Will Ambulate: Greater than 200 Feet, w/ No Device, w/ Stand By Assist Pt Will Go Up / Down Stairs: 3-5 Stairs, w/ Minimal Assist PLAN: Plan Treatment Interventions: Mobility Training;Strengthening;Balance Activities Plan Frequency: 5 Days per Week Comments: increase gait distance;try stairs; test balance RECOMMENDATIONS: PT Discharge Recommendations PT Discharge Recommendations: Home with Assistance Therapist: Liliana Nobles, PT Date: 01/01/2018 Ronda Kulkarni APRN - 01/01/2018 8:25 AM CSTFormatting of this note may be different from the original. Neurosurgery Progress Note SUBJECTIVE: Some drainage from incision overnight requiring suture; patient in restraints and picking at wound. Brighter on exam this am. POD #3 clipping of aneurysm. OBJECTIVE: Vital Signs: 24 Hour Range BP: (81-165)/(37-118) Temp: [37.1 C (98.7 F)-37.1 C (98.8 F)] Pulse: [55-96] Respirations: [10 PER MINUTE-31 PER MINUTE] SpO2: [92 %-99 %] O2 Delivery: None (Room Air) Bright Awake, Oriented to name and age FC x 4 EOMI Incision C/D/I Left eye ecchymosis ASSESSMENT/PLAN: 72 y.o. female s/p Left frontal craniotomy for clipping acomm aneurysm. Active Hospital Problems Diagnosis Diabetes (HCC) Hypertension Subarachnoid hemorrhage (HCC) Parkinson's disease (HCC) PBD #4; POD #3 Left ACOMM aneurysm clipping (Dr. Mercer) Олег Ojeda SBP < 170 TCD 01/01 reviewed Left 1.7, Right 1.3 12/30 CTA without residual acomm, small < 5mm right pcomm noted again Na 137 Hgb 9.6 Speech- okay for regular diet/thin liquids PT/OT mobilization - likely home with assist Continue ICU care Prophylaxis: A)GI: PPI B) Lines: None; PIV C) Urinary Catheter: No D) Antibiotic Usage: No E) VTE: Pharmacological prophylaxis; SQ Heparin and Mechanical prophylaxis; Sequential compression device F) Restraints: Patient assessed for need for restraints. Ronda Kulkarni, ANIMAL SHELTER WORKER Please call [phone] with any questions. Risa Jonas MD - 01/01/2018 6:37 AM CSTFormatting of this note may be different from the original. Neuro Critical Care Progress Note Yarely Dillon Admission Date: 12/29/2017 LOS: 3 days Full Code ASSESSMENT/PLAN Patient Active Problem List Diagnosis Date Noted Diabetes (HCC) 12/29/2017 Hypertension 12/29/2017 Subarachnoid hemorrhage (HCC) 12/29/2017 Yarely Dillon is a 72 y.o. female with PMH DM, HTN who presented to OSH after fall in shower at approximately 2014 on 12/28. Developed pain in back of head, twisted to turn water off and lost consciousness. Woke up less than 10min after event, got herself up and got her . Had nausea and vomiting post-LOC, improved with medications in ED. Denies confusion, weakness post- LOC. CT head obtained with evidence of SAH, transferred to [facility] for management of traumatic vs aneurysmal SAH. Hospital and ICU course: 12/29: Transfer from [place], [place] with SAH. Neurologically intact. S/p craniotomy for aneurysm repair 12/30: Patient is confused and impulsive, but no focal neuro deficits. Telemetry with PVCs, negative troponin. Lytes replaced 12/31: Less verbal today but no focal deficits. Decadron x24 hours. 01/01: More awake, oriented x2 Neuro: Subarachnoid hemorrhage, aneurysmal S/p craniotomy, ACOMM aneurysm repair 12/29 - 12/29 CTA and angio showed 6mm anterior communicating artery aneurysm (could not be safely coiled), and 3mm Rt posterior communicating artery aneurysm. - 12/30 CTA -Interval left pterional craniotomy and anterior communicating artery aneurysm clipping.No refilling of the aneurysm identified.Slight decrease in size of the posterior commuting arteries, which may be due to contrast bolus timing or early mild vasospasm. 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 - PRN Fentanyl, oxycodone, tylenol available - Monitor for delirium Cardiac Hx HTN - Holding AIRCRAFT LANDING GEAR INSPECTOR spironolactone/HCTZ 25-25mg QD - Continue AIRCRAFT LANDING GEAR INSPECTOR Methyldopa 250 mg BID - Prn labetalol, hydralazine for BP goal - liberalized SBP goal <170, MAP goal > 65 - Telemetry showing ventricular bigeminy, potassium and Mg replaced, PVCs now decreasing in frequency - Troponin was negative Respiratory: - No acute issues - Spo2 goal >92% GI - No acute issues - Passed bedside swallow, will monitor PO intake, Boost shakes BID - Continue calorie count - Bowel regimen, ensure daily BM. Suppository prn - Last BM 12/31 Heme: Thrombocytopenia, mild - Hb 9.6, Plt 118 - Assess for coagulopathy, maintain platelets above 100k, INR <1.5 ID: - Afebrile, leukocytosis resolvded - WBC 12.--> 11.74 --> 8.5, likely stress-induced - UA 12/31 no e/o infection - Aim for normothermia, Temp <38.3 celsius, normothermia protocol if febrile Renal: Hyperchloremia (non-AG) metabolic acidosis - improving - Pt received 4L NS during surgery - CO2 16 --> 20 --> 18 - Cl 116 --> 109 --> 109 - Aim for euvolemia, I/O balance n/a over 24 hrs - Removed velázquez 2/7 - Pt voiding on own- increased frequency (likely 2/2 encephalopathy and impulsivity) with PVR <20cc Endocrine: Hx DM - A1C 6.7% - Holding AIRCRAFT LANDING GEAR INSPECTOR metformin-glyburide 2.5-500 1 tab BID - Blood glucose goal 100-180mg/dl - Continue HDCF, may be able to decrease once steroid course complete FEN: - Diabetic diet - 500 cc LR once to maintain net even - Na 137 - Magnesium goal >2.0, i-Dennis goal > 1.0, Potassium goal >4.0 mEq/L Prophylaxis Review: Prophylaxis: A)GI: None B) Lines: A-line removed C) Urinary Catheter: Velzáquez - removed D) Antibiotic Usage: No E) VTE: SCDs, SQ heparin F) Isolation: None G)Seizures: Keppra I) Restraints: Patient assessed for need for restraints. Disposition/Family: NEICU monitoring Primary service: NCC Consults: Neurosurgery Patient seen and discussed with Dr. Candice Jonas Pager [phone] SUBJECTIVE Yarely Dillon is a 72 y.o. female. No acute events overnight. She continues to be somnolent but is more oriented this AM. Following commands. No fevers, headache, N/V, abdominal pain, chest pain or SOB. Past Medical History: Diagnosis Date DM (diabetes mellitus) (HCC) HTN (hypertension) Past Surgical History: Procedure Laterality Date HX TONSILLECTOMY Past Medical History: Diagnosis Date DM (diabetes mellitus) (HCC) HTN (hypertension) Past Surgical History: Procedure Laterality Date HX TONSILLECTOMY History reviewed. No pertinent family history. Social History Substance Use Topics Smoking status: Former Smoker Smokeless tobacco: Never Used Alcohol use No Immunizations (includes history and patient reported): There is no immunization history on file for this patient. Allergies: Codeine and Penicillins Medications Scheduled Meds: docusate (COLACE) capsule 100 mg 100 mg Oral BID heparin (porcine) PF syringe 5,000 Units 5,000 Units Subcutaneous Q8H insulin aspart (NOVOLOG FLEXPEN) injection PEN 0-28 Units 0-28 Units Subcutaneous ACHS levETIRAcetam (KEPPRA) tablet 500 mg 500 mg Oral BID methyldopa (ALDOMET) tablet 250 mg 250 mg Oral BID milk of magnesia (CONC) oral suspension 10 mL 10 mL Oral QDAY niMODipine (NYMALIZE) 3 mg/ mL solution 60 mg 60 mg Oral Q4H senna/docusate (SENOKOT-S) tablet 1 tablet 1 tablet Oral BID Continuous Infusions: PRN and Respiratory Meds:acetaminophen Q4H PRN OR acetaminophen Q4H PRN, bisacodyl QDAY PRN, calcium gluconate IVPB PRN (Full Stack Python Developer from Rx) AND Ionized Calcium PRN AND Notify Physician Ongoing, hydrALAZINE Q6H PRN, labetalol (NORMODYNE; TRANDATE) injection Q15 MIN PRN, magnesium sulfate PRN AND Magnesium PRN AND Notify Physician Ongoing, ondansetron (ZOFRAN) IV Q6H PRN, oxyCODONE Q4H PRN, potassium chloride SR PRN OR potassium chloride PRN, sodium phosphate IVPB PRN (Full Stack Python Developer from Rx) AND Phosphorus PRN AND* * Notify Physician Ongoing Review of Systems: See subjective OBJECTIVE Vital Signs: Last Filed Vital Signs: Last 24 Hours BP: 139/57 (01/01 600) Temp: 37.1 C (98.8 F) (01/01 0400) Pulse: 90 (01/01 600) Respirations: 31 PER MINUTE (01/01 600) SpO2: 96 % (01/01 600) O2 Delivery: None (Room Air) (01/01 600) BP: (110-165)/(37-118) Temp: [37.1 C (98.7 F)-37.2 C (99 F)] Pulse: [55-96] Respirations: [10 PER MINUTE-31 PER MINUTE] SpO2: [92 %-99 %] O2 Delivery: None (Room Air) Intensity Pain Scale 0-10 (Pain 1): (not recorded) Vitals: 12/29/17 1800 12/30/17 1500 Weight: 99.8 kg (220 lb 0.3 oz) 99.8 kg (220 lb 0.3 oz) Critical Care Vitals: ICP Monitoring: Hemodynamics/Oxycalcs: Intake/Output Summary: (Last 24 hours) Intake/Output Summary (Last 24 hours) at 01/01/18 0637 Last data filed at 01/01/18 0600 Gross per 24 hour Intake 730 ml Output 1040 ml Net -310 ml Stool Occurrence: 1 Physical Exam: General: sleepy, laying in bed, no acute distress Lungs: clear to auscultation bilaterally Heart: regular rate and rhythm, S1, S2 normal, no murmur, click, rub or gallop Abdomen: soft, non-tender. Bowel sounds normal. Extremities: extremities normal, atraumatic, no cyanosis. Trace pedal edema Pulses: 2+ DP pulse bilaterally Skin: Contusion to right side (hip and lower leg). Left eye eccymosis Neuro: Mental Status: sleepy, follows commands. Oriented to person and time (not oriented to situation or place-"hospital" but does not know the city) GCS: E: 3 - Opens eyes to command, M: 6 - Follows simple motor commands, V: 4 - confused Cranial Nerves: Cranial nerves 2-12 INTACT. - Pupil exam: 2mm b/l Reactivity: Brisk - EOM: intact Motor: RUE: Strength: 4/5 RLE: Strength: 4/5 LUE: Strength: 4/5 LLE: Strength: 4/5 Sensory: normal Lab Review: 24-hour labs: Results for orders placed or performed during the hospital encounter of (from the past 24 hour(s)) POC GLUCOSE Collection Time: 12/31/17 7:50 AM Result Value Ref Range Glucose, POC 175 (H) 70 - 100 MG/DL POC GLUCOSE Collection Time: 12/31/17 12:00 PM Result Value Ref Range Glucose, POC 245 (H) 70 - 100 MG/DL POC GLUCOSE Collection Time: 12/31/17 4:42 PM Result Value Ref Range Glucose, POC 208 (H) 70 - 100 MG/DL POC GLUCOSE Collection Time: 12/31/17 10:03 PM Result Value Ref Range Glucose, POC 229 (H) 70 - 100 MG/DL URINALYSIS DIPSTICK REFLEX TO CULTURE Collection Time: 12/31/17 11:45 PM Result Value Ref Range Color,UA YELLOW Turbidity,UA CLEAR CLEAR-CLEAR Specific [place]-Urine 1.027 1.003 - 1.035 pH,UA 6.0 5.0 - 8.0 Protein,UA 1+ (A) NEG-NEG Glucose,UA NEG NEG-NEG Ketones,UA 1+ (A) NEG-NEG Bilirubin,UA NEG NEG-NEG Blood,UA NEG NEG-NEG Urobilinogen,UA NORMAL NORM-NORMAL Nitrite,UA NEG NEG-NEG Leukocytes,UA NEG NEG-NEG Urine Ascorbic Acid, UA NEG NEG-NEG URINALYSIS MICROSCOPIC REFLEX TO CULTURE Collection Time: 12/31/17 11:45 PM Result Value Ref Range WBCs,UA 2-10 0 - 2 /HPF RBCs,UA 0-2 0 - 3 /HPF Comment,UA Urine submitted for reflex culture if criteria are met:WBC>10, positive nitrite and/or >=1+ leukocyte esterase. If quantity is not sufficient, an addendum will follow. Squamous Epithelial Cells 0-2 0 - 5 CBC AND DIFF Collection Time: 01/01/18 5:28 AM Result Value Ref Range White Blood Cells 8.5 4.5 - 11.0 K/UL RBC 3.16 (L) 4.0 - 5.0 M/UL Hemoglobin 9.6 (L) 12.0 - 15.0 GM/DL Hematocrit 28.7 (L) 36 - 45 % MCV 90.8 80 - 100 FL MCH 30.4 26 - 34 PG MCHC 33.5 32.0 - 36.0 G/DL RDW 14.1 11 - 15 % Platelet Count 118 (L) 150 - 400 K/UL MPV 7.0 7 - 11 FL Neutrophils 89 (H) 41 - 77 % Lymphocytes 8 (L) 24 - 44 % Monocytes 3 (L) 4 - 12 % Eosinophils 0 0 - 5 % Basophils 0 0 - 2 % Absolute Neutrophil Count 7.60 (H) 1.8 - 7.0 K/UL Absolute Lymph Count 0.70 (L) 1.0 - 4.8 K/UL Absolute Monocyte Count 0.20 0 - 0.80 K/UL Absolute Eosinophil Count 0.00 0 - 0.45 K/UL Absolute Basophil Count 0.00 0 - 0.20 K/UL BASIC METABOLIC PANEL Collection Time: 01/01/18 5:28 AM Result Value Ref Range Sodium 137 137 - 147 MMOL/L Potassium 4.5 3.5 - 5.1 MMOL/L Chloride 109 98 - 110 MMOL/L CO2 18 (L) 21 - 30 MMOL/L Anion Gap 10 3 - 12 Glucose 235 (H) 70 - 100 MG/DL Blood Urea Nitrogen 29 (H) 7 - 25 MG/DL Creatinine 0.90 0.4 - 1.00 MG/DL Calcium 8.9 8.5 - 10.6 MG/DL eGFR Non >60 >60 mL/min eGFR >60 >60 mL/min MAGNESIUM Collection Time: 01/01/18 5:28 AM Result Value Ref Range Magnesium 2.1 1.6 - 2.6 mg/dL PHOSPHORUS Collection Time: 01/01/18 5:28 AM Result Value Ref Range Phosphorus 3.4 2.0 - 4.0 MG/DL IONIZED CALCIUM Collection Time: 01/01/18 5:28 AM Result Value Ref Range Ionized Calcium 1.23 1.0 - 1.3 MMOL/L POC GLUCOSE Collection Time: 01/01/18 6:17 AM Result Value Ref Range Glucose, POC 243 (H) 70 - 100 MG/DL Radiology and Other Diagnostic Procedures: Reviewed. Associated attestation - Ana Harvey MD - 01/01/2018 11:37 AM CSTFormatting of this note may be different from the original. ATTESTATION I have seen, personally fully evaluated, and discussed patient with Dr. Jonas. I agree with the objective findings and agree with the plan of care as documented by the resident with the exceptions noted. The patient is critically ill with SAH. Continue to monitor for vasospasm. Continue ST for impaired cognition. I spent 35 minutes (excluding time spent performing or supervising any procedures) providing and personally directing critical care services, including reviewing imaging and laboratory results. Staff name: Ana Harvey MD Date: 01/01/2018 Yenny Fallon - 12/31/2017 4:32 PM CSTSPEECH-LANGUAGE PATHOLOGY DAILY TREATMENT NOTE Spoke with RN who reports good tolerance of current diet. One medication switched to liquid form, however taking without incident. Please continue previous recommendations. See report from 12/30 for further information re: cognitive-communication status. RECOMMENDATIONS: 1:Continue w/ regular solids & thin liquids given 100% supervision. If overt s/s aspiration observed please cease p.o. Intake until pt's swallow can be re-evaluated by this department.Good oral care to minimize pt's risk of aspirating bacteria in oral secretions. Pills one at a time. 2:At this time if pt were to d/c w/in next 48 hours would recommend consistent supervision upon discharge as anticipate patient's impaired safety awareness and /or problem solving & communication will impact their ability to call for help. Swallow Strategies: Supervision During Meals, Small Bites/Sips, Slow Rate of Intake; pt must be fully alert Therapist: Yenny Ellis M.S., CCC-L/FREIGHT SOLICITOR Pager:[phone] Date: 12/31/2017 Liliana Nobles, PT - 12/31/2017 10:02 AM CSTPHYSICAL THERAPY ASSESSMENT MOBILITY: Mobility Progressive Mobility Level: Walk in hallway Distance Walked (feet): 80 ft Level of Assistance: Assist X1 Assistive Device: Hand Held Time Tolerated: 11-30 minutes Activity Limited By: Mental Status Variability;Patient request to stop SUBJECTIVE: Subjective Significant hospital events: 72 y.o. female s/p fall at home; found to have SAH from ruptured aneurysm; s/p Left frontal craniotomy for clipping acomm aneurysm. Mental / Cognitive Status: Lethargic;Cooperative;Disoriented;To Person;To Place; To Situation;To Time Pain: Patient demonstrates no signs of pain Comments: PMH: parkinson's disease; diabetes, HTN, Ambulation Assist: Independent Mobility in Community without Device Patient Owned Equipment: None Home Situation: Lives with Family Type of Home: House Comments: Patient unable to provide PLOF information this date. information obtained from EMR - will need to clarify stairs in home. Patient does appear to have a history of falls outside of this incident. ROM: ROM ROM Position Assessed: Supine ROM Method: Active LE ROM: Bilateral;WFL STRENGTH: Strength Strength Position Assessed: Seated Overall Strength: No Focal Deficits Noted Strength Unable To Assess: Not Able to Follow Testing Sequence BED MOBILITY/TRANSFERS: Bed Mobility/Transfers Bed Mobility: Supine to Sit: Maximum Assist;Assist with Trunk;Assist with B LE; Head of Bed Elevated Bed Mobility: Sit to Supine: Minimal Assist;Assist with L LE;Bed Flat Transfer Type: Sit to Stand Transfer: Assistance Level: To/From;Bed;Minimal Assist Transfer: Assistive Device: None Transfers: Type Of Assistance: Verbal Cues;For Balance;For Strength Deficit;For Safety Considerations End Of Activity Status: Nursing Notified;Instructed Patient to Request Assist with Mobility;Instructed Patient to Use Call Light;In Bed (bed alarm on ) GAIT: Gait Gait Distance: 80 feet Gait: Assistance Level: Minimal Assist Gait: Assistive Device: Hand Hold Assist Gait: Descriptors: Pace: Slow;Pathway deviations;Loss of balance (reaching out for objects in the hallway) Activity Limited By: Weakness;Patient Choice EDUCATION: Education Persons Educated: Patient Patient Barriers To Learning: Confusion;Impaired Communication Interventions: Repetition of Instructions Teaching Methods: Verbal Instruction Patient Response: More Instruction Required Topics: Plan/Goals of PT Interventions;Mobility Progression;Safety Awareness;Up with Assist Only;Importance of Increasing Activity;Recommend Continued Therapy ASSESSMENT/PROGRESS: Assessment/Progress Impaired Mobility Due To: Decreased Strength;Impaired Balance;Safety Concerns; Decreased Activity Tolerance Assessment/Progress: Should Improve w/ Continued PT AM-PAC 6 Clicks Basic Mobility Inpatient Turning from your back to your side while in a flat bed without using bed rails : A lot Moving from lying on your back to sitting on the side of a flatbed without using bedrails : A Lot Moving to and from a bed to a chair (including a wheelchair): A Lot Standing up from a chair using your arms (e.g. wheelchair, or bedside chair): A Little To walk in hospital room: A Little Climbing 3-5 steps with a railing: Total Raw Score: 13 Standardized (T-scale) Score: 33.99 Basic Mobility CMS 0-100%: 57.65 CMS G Code Modifier for Basic Mobility: CK GOALS: Goals Goal Formulation: With Patient Time For Goal Achievement: 7 days Pt Will Go Supine To/From Sit: w/ Stand By Assist Pt Will Transfer Sit to Stand: w/ Stand By Assist Pt Will Ambulate: Greater than 200 Feet, w/ No Device, w/ Stand By Assist Pt Will Go Up / Down Stairs: 3-5 Stairs, w/ Minimal Assist PLAN: Plan Treatment Interventions: Mobility Training;Strengthening;Balance Activities Plan Frequency: 5 Days per Week Comments: increase gait distance; determine most appropriate assistive device; try stairs; test balance RECOMMENDATIONS: PT Discharge Recommendations PT Discharge Recommendations: Home with Assistance Equipment Recommendations: Too early to be determined G-Codes: Mobility G8978 Current Status: 40-59% Impairment G8979 Goal Status: 1-19% Impairment Based on above evaluation and clinical judgment. Therapist: Liliana Nboles, PT Date: 12/31/2017 Tobias Chapman MD - 12/31/2017 6:34 AM CSTFormatting of this note may be different from the original. Neurosurgery Progress Note SUBJECTIVE: No acute events overnight. Slight increase in aphasia this am on exam. OBJECTIVE: Vital Signs: 24 Hour Range BP: (90-150)/(33-121) Temp: [36.8 C (98.2 F)-36.9 C (98.4 F)] Pulse: [64-111] Respirations: [11 PER MINUTE-33 PER MINUTE] SpO2: [92 %-98 %] O2 Delivery: None (Room Air) Awake, Oriented FC x 4 EOMI Incision C/D/I with dressing Left eye ecchymosis ASSESSMENT/PLAN: 72 y.o. female s/p Left frontal craniotomy for clipping acomm aneurysm. Active Hospital Problems Diagnosis Diabetes (HCC) Hypertension Subarachnoid hemorrhage (HCC) Parkinson's disease (HCC) Keppra, Nimotop Can relax SBP < 170 TCD 12/30 - right 1.2 CTA without residual acomm, small < 5mm right pcomm noted again No Patient Care Coordination Note on file. Prophylaxis: A)GI: PPI B) Lines: g. C) Urinary Catheter: No D) Antibiotic Usage: No E) VTE: Pharmacological prophylaxis; SQ Heparin and Mechanical prophylaxis; Sequential compression device F) Restraints: Patient assessed for need for restraints. Tobias Chapman MD [id number] Please call [phone] with any questions. Risa Jonas MD - 12/31/2017 6:10 AM CSTFormatting of this note may be different from the original. Neuro Critical Care Progress Note Yarely Dillon Admission Date: 12/29/2017 LOS: 2 days Full Code ASSESSMENT/PLAN Patient Active Problem List Diagnosis Date Noted Diabetes (HCC) 12/29/2017 Hypertension 12/29/2017 Subarachnoid hemorrhage (HCC) 12/29/2017 Parkinson's disease (HCC) 12/29/2017 Yarely Dillon is a 72 y.o. female with PMH DM, HTN who presented to OSH after fall in shower at approximately 2015 on 12/28. Developed pain in back of head, twisted to turn water off and lost consciousness. Woke up less than 10min after event, got herself up and got her . Had nausea and vomiting post-LOC, improved with medications in ED. Denies confusion, weakness post- LOC. CT head obtained with evidence of SAH, transferred to [facility] for management of traumatic vs aneurysmal SAH. Hospital and ICU course: 12/29: Transfer from [place], [place] with SAH. Neurologically intact. S/p craniotomy for aneurysm repair 12/30: Patient is confused and impulsive, but no focal neuro deficits. Telemetry with PVCs, negative troponin. Lytes replaced 12/31: Less verbal today but no focal deficits. Started decadron. 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 - 12/30 CTA -Interval left pterional craniotomy and anterior communicating artery aneurysm clipping.No refilling of the aneurysm identified.Slight decrease in size of the posterior commuting arteries, which may be due to contrast bolus timing or early mild vasospasm. - Solis and Erickson Grade 1 - Modified Choudhary Grade 3 - Nimodipine for vasospasm prophylaxis - Sodium Goal : 135-145 - NSG starting steroids- Decadron 4mg Q6H - Keppra 500 BID for post-op ppx - TCDs daily - PT/OT/FREIGHT SOLICITOR for cognitive eval - Neuro-ICU monitoring, neurochecks q 1 hrs, parameters for Prevention of secondary brain injury(avoid hypotension, hypoxia, fever, hyperglycemia, significant anemia, diagnose and treatment of seizures,electrolyte abnormalities ) Sedation, pain - No 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 - PRN Fentanyl, oxycodone, tylenol available - Monitor for delirium Cardiac Hx HTN - Holding AIRCRAFT LANDING GEAR INSPECTOR spironolactone/HCTZ 25-25mg QD - Continue AIRCRAFT LANDING GEAR INSPECTOR Methyldopa 250 mg BID - Prn labetalol, hydralazine for BP goal - liberalized SBP goal <170, MAP goal > 65 - Telemetry showing ventricular bigeminy, potassium and Mg replaced, PVCs now decreasing in frequency - Troponin was negative Respiratory: - No acute issues - Spo2 goal >92% GI - No acute issues - Passed bedside swallow, will monitor PO intake, Boost shakes BID - Continue calorie count - Bowel regimen, ensure daily BM. Suppository prn - Last BM 12/29 Heme: Thrombocytopenia, mild - Hb 10.1, Plt 131 - Assess for coagulopathy, maintain platelets above 100k, INR <1.5 ID: - Afebrile - WBC 12.--> 11.74, likely stress-induced - Aim for normothermia, Temp <38.3 celsius, normothermia protocol if febrile Renal: Hyperchloremia (non-AG) metabolic acidosis - improving - Pt received 4L NS during surgery - CO2 16 --> 20 - Cl 116 --> 109 - Aim for euvolemia, I/O balance n/a over 24 hrs - Removed velázquez / - Pt voiding on own- increased frequency (likely 2/2 encephalopathy and impulsivity) with PVR <20cc Endocrine: Hx DM - A1C 6.7% - Holding AIRCRAFT LANDING GEAR INSPECTOR metformin-glyburide 2.5-500 1 tab BID - Blood glucose goal 100-180mg/dl - Continue MD[facility], may need to increase in setting of steroids FEN: - Diabetic diet - Na 137 - Magnesium goal >2.0, i-Dennis goal > 1.0, Potassium goal >4.0 mEq/L Prophylaxis Review: Prophylaxis: A)GI: None B) Lines: A-line removed C) Urinary Catheter: Velázquez - removed D) Antibiotic Usage: No E) VTE: SCDs, SQ heparin F) Isolation: None G)Seizures: Keppra I) Restraints: Patient assessed for need for restraints. Disposition/Family: NEICU monitoring Primary service: NCC Consults: Neurosurgery Patient seen and discussed with Dr. Candice Jonas Pager [phone] SUBJECTIVE Yarely Dillon is a 72 y.o. female. She was voiding frequently overnight, small volumes and negative post-void residual. No fever, suprapubic tenderness, or dysuria. This morning she is sleepy and not as verbal, but able to follow commands. No fevers, headache, N/V, abdominal pain, chest pain or SOB. Past Medical History: Diagnosis Date DM (diabetes mellitus) (HCC) HTN (hypertension) Past Surgical History: Procedure Laterality Date HX TONSILLECTOMY Past Medical History: Diagnosis Date DM (diabetes mellitus) (HCC) HTN (hypertension) Past Surgical History: Procedure Laterality Date HX TONSILLECTOMY History reviewed. No pertinent family history. Social History Substance Use Topics Smoking status: Former Smoker Smokeless tobacco: Never Used Alcohol use No Immunizations (includes history and patient reported): There is no immunization history on file for this patient. Allergies: Codeine and Penicillins Medications Scheduled Meds: docusate (COLACE) capsule 100 mg 100 mg Oral BID heparin (porcine) PF syringe 5,000 Units 5,000 Units Subcutaneous Q8H insulin aspart (NOVOLOG FLEXPEN) injection PEN 0-14 Units 0-14 Units Subcutaneous 5 X Day levETIRAcetam (KEPPRA) tablet 500 mg 500 mg Oral BID methyldopa (ALDOMET) tablet 250 mg 250 mg Oral BID milk of magnesia (CONC) oral suspension 10 mL 10 mL Oral QDAY niMODipine (NIMOTOP) capsule 60 mg 60 mg Oral Q4H senna/docusate (SENOKOT-S) tablet 1 tablet 1 tablet Oral BID Continuous Infusions: niCARdipine (cardENE) 20 mg/NS 200 mL infusion (std conc)(premade) Stopped (12/29/17 0934) PRN and Respiratory Meds:acetaminophen Q4H PRN OR acetaminophen Q4H PRN, bisacodyl QDAY PRN, calcium gluconate IVPB PRN (Full Stack Python Developer from Rx) AND Ionized Calcium PRN AND Notify Physician Ongoing, fentaNYL citrate PF Q1H PRN, hydrALAZINE Q6H PRN, labetalol (NORMODYNE; TRANDATE) injection Q15 MIN PRN , magnesium sulfate PRN AND Magnesium PRN AND Notify Physician Ongoing, ondansetron (ZOFRAN) IV Q6H PRN, oxyCODONE Q4H PRN, potassium chloride SR PRN OR potassium chloride PRN, sodium phosphate IVPB PRN (Full Stack Python Developer from Rx) AND* * Phosphorus PRN AND Notify Physician Ongoing Review of Systems: See subjective OBJECTIVE Vital Signs: Last Filed Vital Signs: Last 24 Hours BP: 134/112 (12/31 0500) Temp: 36.8 C (98.2 F) (12/31 0000) Pulse: 71 (12/31 0600) Respirations: 21 PER MINUTE (12/31 599) SpO2: 96 % (12/31 599) O2 Delivery: None (Room Air) (12/31 599) Height: 165.1 cm (65") (12/30 1499) Weight: 99.8 kg (220 lb 0.3 oz) (12/30 1499) BP: (107-150)/(33-121) Temp: [36.8 C (98.2 F)-36.9 C (98.4 F)] Pulse: [64-111] Respirations: [11 PER MINUTE-33 PER MINUTE] SpO2: [92 %-98 %] O2 Delivery: None (Room Air) Intensity Pain Scale 0-10 (Pain 1): (not recorded) Vitals: 12/29/17 1800 12/30/17 1500 Weight: 99.8 kg (220 lb 0.3 oz) 99.8 kg (220 lb 0.3 oz) Critical Care Vitals: ICP Monitoring: Hemodynamics/Oxycalcs: Intake/Output Summary: (Last 24 hours) Intake/Output Summary (Last 24 hours) at 12/31/17 0610 Last data filed at 12/31/17 0515 Gross per 24 hour Intake 1653 ml Output 1400 ml Net 253 ml Stool Occurrence: 1 Physical Exam: General: sleepy, laying in bed, no acute distress Lungs: clear to auscultation bilaterally Heart: regular rate and rhythm, S1, S2 normal, no murmur, click, rub or gallop Abdomen: soft, non-tender. Bowel sounds normal. Extremities: extremities normal, atraumatic, no cyanosis. Trace pedal edema Pulses: 2+ DP pulse bilaterally Skin: Contusion to right side (hip and lower leg). Left eye eccymosis Neuro: Mental Status: sleepy, follows commands. Not as verbal today GCS: E: 3 - Opens eyes to loud noise or command, M: 6 - Follows simple motor commands, V: 4- confused Cranial Nerves: Cranial nerves 2-12 INTACT. Left eyelid swollen but Pt able to open partially - Pupil exam: 2mm b/l Reactivity: Brisk - EOM: intact Motor: RUE: Strength: 5/5 RLE: Strength: 5/5 LUE: Strength: 5/5 LLE: Strength: 5/5 Sensory: normal Lab Review: 24-hour labs: Results for orders placed or performed during the hospital encounter of (from the past 24 hour(s)) POC GLUCOSE Collection Time: 12/30/17 8:28 AM Result Value Ref Range Glucose, POC 130 (H) 70 - 100 MG/DL POTASSIUM Collection Time: 12/30/17 10:31 AM Result Value Ref Range Potassium 3.8 3.5 - 5.1 MMOL/L MAGNESIUM Collection Time: 12/30/17 10:31 AM Result Value Ref Range Magnesium 2.2 1.6 - 2.6 mg/dL POC GLUCOSE Collection Time: 12/30/17 11:59 AM Result Value Ref Range Glucose, POC 142 (H) 70 - 100 MG/DL POC GLUCOSE Collection Time: 12/30/17 4:21 PM Result Value Ref Range Glucose, POC 148 (H) 70 - 100 MG/DL POC GLUCOSE Collection Time: 12/30/17 9:30 PM Result Value Ref Range Glucose, POC 242 (H) 70 - 100 MG/DL CBC AND DIFF Collection Time: 12/31/17 3:03 AM Result Value Ref Range White Blood Cells 11.7 (H) 4.5 - 11.0 K/UL RBC 3.35 (L) 4.0 - 5.0 M/UL Hemoglobin 10.1 (L) 12.0 - 15.0 GM/DL Hematocrit 29.7 (L) 36 - 45 % MCV 88.7 80 - 100 FL MCH 30.0 26 - 34 PG MCHC 33.8 32.0 - 36.0 G/DL RDW 14.2 11 - 15 % Platelet Count 131 (L) 150 - 400 K/UL MPV 6.9 (L) 7 - 11 FL Neutrophils 77 41 - 77 % Lymphocytes 16 (L) 24 - 44 % Monocytes 7 4 - 12 % Eosinophils 0 0 - 5 % Basophils 0 0 - 2 % Absolute Neutrophil Count 9.00 (H) 1.8 - 7.0 K/UL Absolute Lymph Count 1.80 1.0 - 4.8 K/UL Absolute Monocyte Count 0.80 0 - 0.80 K/UL Absolute Eosinophil Count 0.00 0 - 0.45 K/UL Absolute Basophil Count 0.00 0 - 0.20 K/UL BASIC METABOLIC PANEL Collection Time: 12/31/17 3:03 AM Result Value Ref Range Sodium 137 137 - 147 MMOL/L Potassium 4.3 3.5 - 5.1 MMOL/L Chloride 109 98 - 110 MMOL/L CO2 20 (L) 21 - 30 MMOL/L Anion Gap 8 3 - 12 Glucose 190 (H) 70 - 100 MG/DL Blood Urea Nitrogen 18 7 - 25 MG/DL Creatinine 0.96 0.4 - 1.00 MG/DL Calcium 8.6 8.5 - 10.6 MG/DL eGFR Non 57 (L) >60 mL/min eGFR >60 >60 mL/min MAGNESIUM Collection Time: 12/31/17 3:03 AM Result Value Ref Range Magnesium 2.0 1.6 - 2.6 mg/dL PHOSPHORUS Collection Time: 12/31/17 3:03 AM Result Value Ref Range Phosphorus 2.4 2.0 - 4.0 MG/DL IONIZED CALCIUM Collection Time: 12/31/17 3:03 AM Result Value Ref Range Ionized Calcium 1.09 1.0 - 1.3 MMOL/L POC GLUCOSE Collection Time: 12/31/17 3:03 AM Result Value Ref Range Glucose, POC 198 (H) 70 - 100 MG/DL Radiology and Other Diagnostic Procedures: Reviewed. Associated attestation - Ana Harvey MD - 12/31/2017 11:16 AM CSTFormatting of this note may be different from the original. ATTESTATION I have seen, personally fully evaluated, and discussed patient with Dr. Jonas. I agree with the objective findings and agree with the plan of care as documented by the resident with the exceptions noted. The patient is critically ill with SAH from aneurysm rupture - aneurysm treated with clipping. Continue to monitor for vasospasm. Therapies involved - PT, OT and ST. I spent 35 minutes (excluding time spent performing or supervising any procedures ) providing and personally directing criticalcare services, including reviewing imaging and laboratory results. Staff name: Ana Harvey MD Date: 12/31/2017 Beatriz Hernandez RN - 12/31/2017 1:15 AM CSTSpoke with NEICU team wind turbine controls engineer regarding pt urinating frequently throughout night. Pt velázquez removed at 1100 yesterday and pt has not had any post void residuals since removal. Pt is consistently voidingevery hour and between [id number] pt voided 3 separate times. Post void residual after 2nd void within one hour=11. Pt without symptoms of urgency or pain while voiding. Pt also without fever or suprapubic pain. Per NEICU no new orders at this time, but will consider ordering a UA if pt has a fever or develops other symptoms of a UTI. Will continue to monitor. LennyCalebGenarosocorroDeidra pantoja - 12/30/2017 1:45 PM CSTSPEECH-LANGUAGE PATHOLOGY CLINICAL SWALLOW ASSESSMENT & BRIEF COMMUNICATION EVALUATION EVALUATION SUMMARY Summary: A clinical swallow eval was completed and a communication evaluation was initiated however unable to complete as pt lethargic. Pt presented w/ minimal oropharyngeal dysphagia which appears sarah currently d/t pt's mental status and alertness level. Verbal expression for simple communicationof needs/ wants within functional limits and auditory comprehension impaired. Further evaluation of language and cognition to be completed. See below for additional documentation. RECOMMENDATIONS: Continue w/ regular solids & thin liquids given 100% supervision. If overt s/s aspiration observed please cease p.o. Intake until pt's swallow can be re- evaluated by this department. Good oral care to minimize pt's risk of aspirating bacteria in oral secretions. Pills one at a time. At this time if pt were to d/c w/in next 48 hours would recommend consistent supervision upon discharge as anticipate patient's impaired safety awareness and /or problem solving & communication willimpact their ability to call for help. Discussed pt w/ RN. Swallow Strategies: Supervision During Meals, Small Bites/Sips, Slow Rate of Intake; pt must be fully alert Oral Stage Summary*: Within funcitonal limits. Normal bolus w/draw, formation and transfer however w/ larger consecutive swallows of thin via straw do suspect early posterior spillage of p.o. Mastication of mech sfot & regular solids complete w/o oral residue observed. Pharyngeal Stage Summary*: Suspect presence of minimal pharyngeal dysphagia. W/ large consecutive swallows of thin liquids pt presented w/ throat clear indicating possible penetration. W/ smaller boluses of thin and w/ all solids presented pt free of overt s/s aspiration. Swallow initiation judged to be WNL and laryngeal elevation difficult to fully palpate 2* pt's body habitus/thick neck. BRIEF SPEECH-LANGUAGE EVALUATION: Verbal expression: Ongoing evaluation to be completed. Confrontation namin/10; picture description & conversation/response to open ended questions: 2-3 word phrases that were appropriate andwhen prompted to expand pt not observed to do so and requested to cease evaluation, attempting to get out of bed. She was oriented to person only and when provided binary choices she was aware she was in a hospital. Auditory comprehension: Pt followed 10/10 one step commands; 0/3 2-step commands. When asked simpleyes/no questions re: self her accuracy was 4/6. Further eval of auditory comp to be completed. Written expression & reading comprehension to be evaluated. Per pt's family she does wear glasses. Plan: Continue Treatment __x/week (Comment). (3-5x/wk) Prognosis: Good NOMS Dysphagia Ratin-Minimal Dysphagia -Swallow safe, pt eats/drinks indep, may require min cues. Usually self-cues when difficulty occurs. May need to avoid specific food items (e.g., popcorn & nuts) or need more time (due to dysphagia). Results Reported to Physician: Yes Objective* Relevant Med Background: The pt is a 72 y.o.femalewith PMH DM, HTN who presented to OSH after fall in shower at approximately 2014 on 12/28. Developed pain in back of head, twisted to turn water offand lost consciousness. Woke up less than 10min after event, got herself up and got her . Hadnausea and vomiting post-LOC, improved with medications in ED. Denies confusion, weakness post- LOC.CT head obtained with evidence of SAH, transferred to [facility] for management of traumatic vs aneurysmalSAH. Pt now s/p crani for aneurysm repair. IMPRESSION CT head 1. Interval left pterional craniotomy and anterior communicating artery aneurysm clipping. No refilling of the aneurysm identified. 2. Slight improvement in basilar subarachnoid hemorrhage with persistent sulcal effacement. 3. Slight decrease in size of the posterior commuting arteries, which may be due to contrast bolus timing or early mild vasospasm. 4. 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 Handedness: Right Hearing: WFL Lives With: Spouse Receives Help From: None Needed Vocational: Retired Psychosocial Status: Participates in Therapy with Encouragement Persons Present: (bother & 2 nephews) Subjective* Pain: Patient has no complaint of pain Pain Level Current*: No pain Trach Presence: No Feeding Tube Present During Eval: None Nutrition* Nutrition Prior To Hospitalization: Regular, Thin Liquids Current Form Of Nutrition: Thin Liquids, Regular ORAL MECH EXAM Oral Mech WFL*: No Oral Mech Exam Summary*: Weak volitional cough, impaired lingual & labial ROM bilaterally however anticipate to be related to decreased pt effort at time of eval. Education* Persons Educated: Patient Barriers To Learning: Cognitive Deficits, Impaired Communication Interventions: Staff Educated, Family Educated, Provided Written Education Teaching Methods: Verbal Topics: Dysphagia Patient Response: Unable to Demonstrate Understanding, More Instruction Required Goal Formulation: With Pt/Family Clinical Swallow Goals* Goal : The pt will tolerate a regular diet w/ thin liquids w/ < 5% overt s/s aspiration. Goal : The pt will participate in ongoing language evaluation given mod cues to maintain attention. Therapist:Deidra Roberts MA, L/CCC-FREIGHT SOLICITOR [id number] Date:12/30/2017 Chantal Matute RN - 12/30/2017 1:07 PM CSTNoted patient to be clearing throat after sipping water with 1200 medications. Notified Neuro ICU and asked for speech swallow eval, order entered and FREIGHT SOLICITOR at bedside.Mraiah Hemphill OT - 12/30/2017 10:58 AM CSTFormatting of this note may be different from the original. OCCUPATIONAL THERAPY ASSESSMENT NOTE Patient Name: Yarely Dillon Room/Bed: [place] [address] Admitting Diagnosis: Ruptured Aneurysm Subarachnoid hemorrhage (HCC) Past Medical History: Diagnosis Date DM (diabetes mellitus) (HCC) HTN (hypertension) Mobility Progressive Mobility Level: Walk in room Distance Walked (feet): 20 ft Level of Assistance: Assist X1 Assistive Device: Hand Held Time Tolerated: 11-30 minutes Activity Limited By: Lethargy;Mental Status Variability Subjective Pertinent Dx per Physician: 72 y.o female who presented to OSH after fall in shower on 12/28. Developed pain in back of head and lost consciousness, nausea and vomiting post-LOC. CT head obtained with evidence of SAH, transferred to [facility] for management of traumatic vs aneurysmal SAH. 12/29: OR for Left pterional craniotomy for clipping of AComm aneurysm. 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 ADL's Where Assessed: Standing at Sink;In Bathroom Grooming Assist: Moderate Assist Grooming Deficits: Setup;Steadying;Teeth Care;Wash/Dry Hands (Assist to comb hair;Cueing to start task) Toileting Assist: Moderate Assist Toileting Deficits: Steadying;Clothing Management Down Functional Transfer Assist: Minimal Assist Functional Transfer Deficits: Toilet Transfer w/ grab bar;Room mobility w/ hand held assist;Supine to Sit Comment: Patient restless and attempted to get out of bed upon arrival. Patient transferred to EOB. Required minimal assist for sitting balance at EOB for safety concerns. Patient ambulated to bathroom for toileting and stood at sink for grooming. Patient seated in chair at end of session, TABS alarm on and lapbelt in place. Activity Tolerance Endurance: 3/5 Tolerates 25-30 Minutes Exercise w/Multiple Rests Sitting Balance: 1+/5 Supports Self w/>50% Effort UsingUE, Requires Therapist Assistance (Safety considerations) Cognition Overall Cognitive Status: Impaired Social Interaction: Lethargic Problem Solving: Decreased Judgment/Safety;Cueing to Sequence Task Orientation: Alert & Oriented x1;To Person Cognition Comment: Patient followed commands but require repetition and cueing. UE AROM Overall BUE AROM WNL: Yes Grasp: Bilateral Grasp Functional for Activity UE Strength / Tone Strength/Tone Not Assessed: Due to Cognitive Deficits Education Persons Educated: Patient/Family Barriers To Learning: Cognitive Deficits Interventions: Repetition of Instructions;Physical Cueing Teaching Methods: Verbal Instruction Patient Response: Return Demonstration;More Instruction Required Topics: Role of OT, Goals for Therapy Goal Formulation: With Patient Assessment Assessment: Decreased ADL Status;Decreased Safe/Judg during ADL;Decreased Cognition;Decreased Endurance;Decreased Self-Care Trans;Decreased High-Level ADLs Prognosis: Good;w/Cont OT s/p Acute Discharge AM-PAC 6 Clicks Daily Activity Inpatient Putting on and taking off regular lower body clothes?: A Lot Bathing (Including washing, rinsing, drying): A Lot Toileting, which includes using toilet, bedpan, or urinal: A Lot Putting on and taking off regular upper body clothing: A Lot Taking care of personal grooming such as brushing teeth: A Lot Eating meals?: A Lot Daily Activity Raw Score: 12 Standardized (t-scale) score: 30.6 CMS 0-100% Score: 66.57 CMS G Code Modifier: CL Plan Treatment Interventions: ADL Retraining;Functional Transfer Training;Endurance Training;Cognitive Reorientation;Patient/Family Training;Equipment Evaluation/ Education;Neuromuscular Reeducation;Compensatory Technique Education OT Frequency: 3-5X/week Plan for next visit: progressive ADLs and functional mobility;safety awareness ADL Goals Patient Will Perform All ADL's: w/ Modified Kleberg, w/ Good Judgment/ Safety Functional Transfer Goals Pt Will Perform All Functional Transfers: Modified Independent, w/ Good Judgment /Safety OT Discharge Recommendations OT Discharge Recommendations: Inpatient Setting, Vs, Home with family assist Equipment Recommendations: Too early to be determined G-Codes: Self-care G8987 Current Status: 60-79% Impairment G8988 Goal Status: 20-39% Impairment Based on above evaluation and clinical judgment. Therapist: JOSH Martinez/April 0271 Date: 12/30/2017Tobias correa MD - 12/30/2017 6:50 AM CSTFormatting of this note may be different from the original. Neurosurgery Progress Note SUBJECTIVE: No acute events overnight OBJECTIVE: Vital Signs: 24 Hour Range BP: (97-168)/(26-152) ABP: (93-151)/(37-55) Temp: [36.4 C (97.5 F)-37 C (98.6 F)] Pulse: [75-107] Respirations: [12 PER MINUTE-25 PER MINUTE] SpO2: [91 %-98 %] O2 Delivery: None (Room Air) Awake, Oriented FC x 4 EOMI Left eye ecchymosis ASSESSMENT/PLAN: 72 y.o. female s/p Left frontal craniotomy for clipping acomm aneurysm. Active Hospital Problems Diagnosis Diabetes (HCC) Hypertension Subarachnoid hemorrhage (HCC) Parkinson's disease (HCC) Олег Ojeda Ancef x 3 Can relax SBP < 170 TCP pending CTA good - final read pending No Patient Care Coordination Note on file. Prophylaxis: A)GI: PPI B) Lines: g. C) Urinary Catheter: No D) Antibiotic Usage: Yes; Infection present or suspected: postop ppx E) VTE: Pharmacological prophylaxis; Contraindication: Bleeding risk; < 48 hours postop and Mechanical prophylaxis; Sequential compression device F) Restraints: Patient assessed for need for restraints. Tobias Chapman MD [id number] Please call [phone] with any questions. Risa Jonas MD - 12/30/2017 6:07 AM CSTFormatting of this note may be different from the original. Neuro Critical Care Progress Note Yarely Dillon Admission Date: 12/29/2017 LOS: 1 day Full Code ASSESSMENT/PLAN Patient Active Problem List Diagnosis Date Noted Diabetes ([facility]) 12/29/2017 Hypertension 12/29/2017 Subarachnoid hemorrhage ([facility]) 12/29/2017 Parkinson's disease ([facility]) 12/29/2017 Yarely Dillon is a 72 y.o. female with PMH DM, HTN who presented to OSH after fall in shower at approximately 2014 on 12/28. Developed pain in back of head, twisted to turn water off and lost consciousness. Woke up less than 10min after event, got herself up and got her . Had nausea and vomiting post-LOC, improved with medications in ED. Denies confusion, weakness post- LOC. CT head obtained with evidence of SAH, transferred to [facility] for management of traumatic vs aneurysmal SAH. Hospital and ICU course: 12/29: Transfer from [place], [place] with SAH. Neurologically intact. S/p craniotomy for aneurysm repair Neuro: Subarachnoid hemorrhage, aneurysmal S/p craniotomy, ACOMM aneurysm repair 12/29 - 12/29 CTA and angio showed 6mm anterior communicating artery aneurysm (could not be safely coiled), and 3mm Rt posterior communicating artery aneurysm. 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 - PRN Fentanyl, oxycodone, tylenol available - Pt was disoriented overnight 12/29, required soft restraints briefly Cardiac Hx HTN - AIRCRAFT [employer]ANDING GEAR INSPECTOR spironolactone/HCTZ 25-25mg QD - Restart [employer]ANDING GEAR INSPECTOR Methyldopa 250 mg BID - Prn labetalol, hydralazine, cardene for BP goal - MAP goal > 65, SBP goal <140 - Telemetry showing ventricular bigeminy, potassium and Mg replaced, will continue to monitor - F/u troponin Respiratory: - No acute issues - Spo2 goal >92% GI - No acute issues - Passed bedside swallow, will monitor PO intake - Bowel regimen, ensure daily BM. Suppository prn - Last BM 12/29 Heme: Thrombocytopenia, mild - Hb 9.9, Plt 146 - Assess for coagulopathy, maintain platelets above 100k, INR <1.5 ID: - Afebrile - WBC 12.4, likely stress-induced - Aim for normothermia, Temp <38.3 celsius, normothermia protocol if febrile Renal: Hyperchloremia (non-AG) metabolic acidosis - Pt received 4L NS yesterday - CO2 16, Cl 116 - Aim for euvolemia, I/O balance n/a over 24 hrs - Remove velázquez today - Bladder scan protocol Endocrine: Hx DM - A1C 6.7% - Holding AIRCRA[employer]ANDING GEAR INSPECTOR metformin-glyburide 2.5-500 1 tab BID - Blood glucose goal 100-180mg/dl - Insulin gtt intra-op and overnight (23 units in 12 hours) - D/c insulin drip, will start [facility]: - Diabetic diet - Finish 1L LR for risk of contrast nephropathy - Na 140 - Magnesium goal >2.0, i-Dennis goal > 1.0, Potassium goal >4.0 mEq/L Prophylaxis Review: Prophylaxis: A)GI: None B) Lines: A-line removed C) Urinary Catheter: Velázquez - remove today D) Antibiotic Usage: Ancef x3 E) VTE: SCDs, SQ heparin (okay to start per NSG) F) Isolation: None G)Seizures: Keppra I) Restraints: Patient assessed for need for restraints. Disposition/Family: NEICU monitoring Primary service: NCC Consults: Neurosurgery Patient seen and discussed with Dr. Candice Jonas Pager [phone] SUBJECTIVE Yarely Dillon is a 72 y.o. female. She was delirious overnight, required soft restraints after pulling out multiple IVs and pulling on her velázquez catheter. This morning she is sleepy but able to follow commands. Has a headache , but would not quantify the severity. No fevers/chills, N/V, abdominal pain, chest pain or SOB. Past Medical History: Diagnosis Date DM (diabetes mellitus) (HCC) HTN (hypertension) Past Surgical History: Procedure Laterality Date HX TONSILLECTOMY Past Medical History: Diagnosis Date DM (diabetes mellitus) (HCC) HTN (hypertension) Past Surgical History: Procedure Laterality Date HX TONSILLECTOMY History reviewed. No pertinent family history. Social History Substance Use Topics Smoking status: Not on file Smokeless tobacco: Not on file Alcohol use Not on file Immunizations (includes history and patient reported): There is no immunization history on file for this patient. Allergies: Codeine and Penicillins Medications Scheduled Meds: ceFAZolin (ANCEF) IVP 1 g 1 g Intravenous Q8H* docusate (COLACE) capsule 100 mg 100 mg Oral BID levETIRAcetam in NaCl (iso-os) (KEPPRA) IVPB (premade) 500 mg 100 mL 500 mg Intravenous BID milk of magnesia (CONC) oral suspension 10 mL 10 mL Oral QDAY niMODipine (NIMOTOP) capsule 60 mg 60 mg Oral Q4H senna/docusate (SENOKOT-S) tablet 1 tablet 1 tablet Oral BID Continuous Infusions: insulin regular (NOVOLIN R) 100 Units in sodium chloride 0.9% (NS) 100 mL IV drip (std conc) 1.5Units/hr (12/30/17 0111) lactated ringers infusion 1,000 mL (12/30/17 0548) niCARdipine (cardENE) 20 mg/NS 200 mL infusion (std conc)(premade) Stopped (12/29/17 3234) sodium chloride 0.9 % infusion 250 mL (12/30/17 0055) PRN and Respiratory Meds:acetaminophen Q4H PRN OR acetaminophen Q4H PRN, calcium gluconate IVPB PRN (Full Stack Python Developer from Rx) AND Ionized Calcium PRN AND* * Notify Physician Ongoing, fentaNYL citrate PF Q1H PRN, hydrALAZINE Q6H PRN, labetalol (NORMODYNE; TRANDATE) injection Q15 MIN PRN, magnesium sulfate PRN AND Magnesium PRN AND Notify Physician Ongoing, ondansetron (ZOFRAN) IV Q6H PRN, oxyCODONE Q4H PRN, potassium chloride SR PRN OR potassium chloride PRN, sodium phosphate IVPB PRN (Full Stack Python Developer from Rx) AND Phosphorus PRN AND* * Notify Physician Ongoing Review of Systems: See subjective OBJECTIVE Vital Signs: Last Filed Vital Signs: Last 24 Hours BP: 152/32 (12/30 0500) ABP: 99/50 (12/30 0100) Temp: 37 C (98.6 F) (12/30 0400) Pulse: 97 (12/30 0500) Respirations: 20 PER MINUTE (12/30 0500) SpO2: 95 % (12/30 0500) O2 Delivery: None (Room Air) (12/30 06) Weight: 99.8 kg (220 lb 0.3 oz) (12/29 1800) BP: (97-168)/(26-152) ABP: (93-151)/(37-55) Temp: [36.4 C (97.5 F)-37 C (98.6 F)] Pulse: [75-107] Respirations: [12 PER MINUTE-25 PER MINUTE] SpO2: [91 %-98 %] O2 Delivery: None (Room Air) Intensity Pain Scale 0-10 (Pain 1): (not recorded) Vitals: 12/29/17 1800 Weight: 99.8 kg (220 lb 0.3 oz) Critical Care Vitals: ICP Monitoring: Hemodynamics/Oxycalcs: Intake/Output Summary: (Last 24 hours) Intake/Output Summary (Last 24 hours) at 12/30/17 0607 Last data filed at 12/30/17 0600 Gross per 24 hour Intake 4935.95 ml Output 2645 ml Net 2290.95 ml Stool Occurrence: 1 Physical Exam: General: sleepy, laying in bed, no acute distress Lungs: clear to auscultation bilaterally Heart: regular rate and rhythm, S1, S2 normal, no murmur, click, rub or gallop Abdomen: soft, non-tender. Bowel sounds normal. Extremities: extremities normal, atraumatic, no cyanosis. Trace pedal edema Pulses: 2+ DP pulse bilaterally Skin: Contusion to right side (hip and lower leg). Left eye eccymosis Neuro: Mental Status: sleepy, follows commands. Oriented to self, place ([place]), not to time (December 2011, but knew Mariana is president) or situation. GCS: E: 3 - Opens eyes to loud noise or command, M: 6 - Follows simple motor commands, V: 5 - Alert and oriented Cranial Nerves: Cranial nerves 2-12 INTACT. Left eyelid swollen but Pt able to open partially - Pupil exam: 2mm b/l Reactivity: Brisk - EOM: intact Motor: RUE: Strength: 5/5 RLE: Strength: 5/5 LUE: Strength: 5/5 LLE: Strength: 5/5 Sensory: normal Lab Review: 24-hour labs: Results for orders placed or performed during the hospital encounter of (from the past 24 hour(s)) TYPE & CROSSMATCH Collection Time: 12/29/17 10:45 AM Result Value Ref Range Units Ordered 2 Crossmatch Expires 01/01/2018 Record Check 2ND TYPE REQUIRED ABO/RH(D) A NEG Antibody Screen NEG Electronic Crossmatch YES Unit Number [id number] Blood Component Type RBC,ADSOL,LEUKO REDUCED Unit Division 0 Status OF Unit REL FROM ALLOC Transfusion Status OK TO TRANSFUSE Crossmatch Result COMPATIBLE,ELECTRONIC Unit Number [id number] Blood Component Type RBC,ADSOL,LEUKO REDUCED,2ND CONT. Unit Division 0 Status OF Unit REL FROM ALLOC Transfusion Status OK TO TRANSFUSE Crossmatch Result COMPATIBLE,ELECTRONIC BLOOD GASES, ARTERIAL Collection Time: 12/29/17 10:46 AM Result Value Ref Range pH-Arterial 7.35 7.35 - 7.45 pCO2-Arterial 37 35 - 45 MMHG pO2-Arterial 167 (H) 80 - 100 MMHG Base Deficit-Arterial 4.8 MMOL/L O2 Sat-Arterial 99.3 (H) 95 - 99 % Dinvlahshcy-TKR-Cgu 20.5 (L) 21 - 28 MMOL/L BLOOD TYPE CONFIRMATION - ORDER ONLY IF REQUESTED BY LAB Collection Time: 12/29/17 12:01 PM Result Value Ref Range ABO/RH(D) A NEG BLOOD GASES, ARTERIAL Collection Time: 12/29/17 1:50 PM Result Value Ref Range pH-Arterial 7.38 7.35 - 7.45 pCO2-Arterial 31 (L) 35 - 45 MMHG pO2-Arterial 192 (H) 80 - 100 MMHG Base Deficit-Arterial 5.9 MMOL/L O2 Sat-Arterial 99.6 (H) 95 - 99 % Rjekpbnimpr-SAX-Vgo 19.6 (L) 21 - 28 MMOL/L IONIZED CALCIUM,BG Collection Time: 12/29/17 1:50 PM Result Value Ref Range Ionized Calcium 1.12 1.0 - 1.3 MMOL/L LACTIC ACID (BG - RAPID LACTATE) Collection Time: 12/29/17 1:50 PM Result Value Ref Range Lactic Acid,BG 1.2 0.5 - 2.0 MMOL/L POTASSIUM, BG Collection Time: 12/29/17 1:50 PM Result Value Ref Range Potassium 4.3 3.5 - 5.1 MMOL/L SODIUM,BG Collection Time: 12/29/17 1:50 PM Result Value Ref Range Sodium 136 (L) 137 - 147 MMOL/L HEMOGLOBIN & HEMATOCRIT, BG Collection Time: 12/29/17 1:50 PM Result Value Ref Range Hemoglobin BG 11.0 (L) 12.0 - 15.0 GM/DL Hematocrit BG 33.8 (L) 36 - 45 % GLUCOSE,BG Collection Time: 12/29/17 1:50 PM Result Value Ref Range Glucose 228 (H) 70 - 100 MG/DL POC GLUCOSE Collection Time: 12/29/17 3:12 PM Result Value Ref Range Glucose, POC 230 (H) 70 - 100 MG/DL POC GLUCOSE Collection Time: 12/29/17 3:55 PM Result Value Ref Range Glucose, POC 217 (H) 70 - 100 MG/DL POC GLUCOSE Collection Time: 12/29/17 4:56 PM Result Value Ref Range Glucose, POC 203 (H) 70 - 100 MG/DL POC GLUCOSE Collection Time: 12/29/17 6:01 PM Result Value Ref Range Glucose, POC 202 (H) 70 - 100 MG/DL POC GLUCOSE Collection Time: 12/29/17 6:58 PM Result Value Ref Range Glucose, POC 168 (H) 70 - 100 MG/DL POC GLUCOSE Collection Time: 12/29/17 8:13 PM Result Value Ref Range Glucose, POC 160 (H) 70 - 100 MG/DL POC GLUCOSE Collection Time: 12/29/17 9:16 PM Result Value Ref Range Glucose, POC 194 (H) 70 - 100 MG/DL POC GLUCOSE Collection Time: 12/29/17 10:12 PM Result Value Ref Range Glucose, POC 170 (H) 70 - 100 MG/DL POC GLUCOSE Collection Time: 12/29/17 11:21 PM Result Value Ref Range Glucose, POC 174 (H) 70 - 100 MG/DL POC GLUCOSE Collection Time: 12/30/17 12:17 AM Result Value Ref Range Glucose, POC 150 (H) 70 - 100 MG/DL POC GLUCOSE Collection Time: 12/30/17 1:09 AM Result Value Ref Range Glucose, POC 129 (H) 70 - 100 MG/DL POC GLUCOSE Collection Time: 12/30/17 2:03 AM Result Value Ref Range Glucose, POC 140 (H) 70 - 100 MG/DL CBC AND DIFF Collection Time: 12/30/17 2:05 AM Result Value Ref Range White Blood Cells 12.4 (H) 4.5 - 11.0 K/UL RBC 3.29 (L) 4.0 - 5.0 M/UL Hemoglobin 9.9 (L) 12.0 - 15.0 GM/DL Hematocrit 29.8 (L) 36 - 45 % MCV 90.6 80 - 100 FL MCH 30.0 26 - 34 PG MCHC 33.1 32.0 - 36.0 G/DL RDW 14.1 11 - 15 % Platelet Count 146 (L) 150 - 400 K/UL MPV 7.0 7 - 11 FL Neutrophils 86 (H) 41 - 77 % Lymphocytes 8 (L) 24 - 44 % Monocytes 6 4 - 12 % Eosinophils 0 0 - 5 % Basophils 0 0 - 2 % Absolute Neutrophil Count 10.70 (H) 1.8 - 7.0 K/UL Absolute Lymph Count 1.00 1.0 - 4.8 K/UL Absolute Monocyte Count 0.70 0 - 0.80 K/UL Absolute Eosinophil Count 0.00 0 - 0.45 K/UL Absolute Basophil Count 0.00 0 - 0.20 K/UL BASIC METABOLIC PANEL Collection Time: 12/30/17 2:05 AM Result Value Ref Range Sodium 141 137 - 147 MMOL/L Potassium 3.7 3.5 - 5.1 MMOL/L Chloride 116 (H) 98 - 110 MMOL/L CO2 16 (L) 21 - 30 MMOL/L Anion Gap 9 3 - 12 Glucose 112 (H) 70 - 100 MG/DL Blood Urea Nitrogen 14 7 - 25 MG/DL Creatinine 0.92 0.4 - 1.00 MG/DL Calcium 7.7 (L) 8.5 - 10.6 MG/DL eGFR Non 60 (L) >60 mL/min eGFR >60 >60 mL/min MAGNESIUM Collection Time: 12/30/17 2:05 AM Result Value Ref Range Magnesium 1.5 (L) 1.6 - 2.6 mg/dL PHOSPHORUS Collection Time: 12/30/17 2:05 AM Result Value Ref Range Phosphorus 2.9 2.0 - 4.0 MG/DL IONIZED CALCIUM Collection Time: 12/30/17 2:05 AM Result Value Ref Range Ionized Calcium 1.15 1.0 - 1.3 MMOL/L POC GLUCOSE Collection Time: 12/30/17 3:08 AM Result Value Ref Range Glucose, POC 146 (H) 70 - 100 MG/DL POC GLUCOSE Collection Time: 12/30/17 4:32 AM Result Value Ref Range Glucose, POC 153 (H) 70 - 100 MG/DL POC GLUCOSE Collection Time: 12/30/17 5:52 AM Result Value Ref Range Glucose, POC 144 (H) 70 - 100 MG/DL Radiology and Other Diagnostic Procedures: Reviewed. Associated attestation - Ana Harvey MD - 12/30/2017 12:25 PM CSTFormatting of this note may be different from the original. ATTESTATION I have seen, personally fully evaluated, and discussed patient with Dr. Jonas. I agree with the objective findings and agree with the plan of care as documented by the resident with the exceptions noted. The patient is critically ill with SAH - aneurysmal - treated with clipping. Continue to monitor for vasospasm. She needs cognitive therapy - involve ST. I spent 35 minutes (excluding time spent performing or supervising any procedures) providing and personally directing critical care services, including reviewing imaging and laboratory results. Staff name: Ana Harvey MD Date: 12/30/2017 Dejah Portillo, ERMELINDA - 12/30/2017 3:21 AM CSTDr. Thayer with ICU notified that pt has been going in and out of [facility]. No new orders at this time. Will continue to monitor.Chantal Matute, ERMELINDA - 12/29/2017 7:[address] Thayer with Neuro ICU that pt still very drowsy post-operatively, not speaking or wakingup completely. This RN expressed concern that pt not safe to swallow, however has not received dose of nimodipine since arrival to hospital. Dr. Thayer ordered this RN to consult with Neurosurgery to determine if patient needs corpak in order to receive scheduled meds. Dr. Tiffanie Louie contacted, states pt ok to miss next dose of nimodipine and use nursing discretion if patient safe to tolerate sublingual dose. Patient beginning to arouse more at shift change, will pass along to qualitative field project manager to continueto reassess patient for swallow as appropriate.Chantal Matute RN - 12/29/2017 5:00 PM CSTReport received from ERMELINDA Lugo in OR. Patient arrived back to room 5110 at approx. 1645. Patient settled in room, attached to monitors. Complete head to toe assessment done, see doc flowsheet for details. Patient not opening eyes at this time, localizing in BUE, moaning to pain. Will continue to assess/awaken patient, assess for neuro decline. Right groin site checked, shadow drainage noted and circled, pulses 3+ in RLE. Per report from ABENA Valadez RN patient left IR suite at 1115. Will continue IR checks/charting according to this time. Truman Smith MD - 12/29/2017 12:46 PM CSTNeurology intra-Operating Monitoring report (IOM) Date of procedure: 12/29/2017 Diagnosis: Subarachnoid hemorrhage Procedure: clipping of ACOM anuerysm Surgeon: Ruslan Baseline acquisition time: 1146 Monitoring start time: 1202 Incision time: 1210 Closing started at: 1517 Monitoring stop time: 1544 TcMEP: Trancranial Motor Evoked Potential: Post induction baseline transcranial motor evoked potentials from bilateral ADM , TA (though small) and AHB (small and i inconistent) muscles and were reproducible with normal latencies and morphology.The compound muscle action potential data showed no evidence to suggest change in the lateral cortico- spinal pathways as a consequence of this surgery. SSEP: Somatosensory Evoked Potentials: Post induction baseline somatosensory evoked potentials from bilateral ulnar and posterior tibial nerves were obtained and were reproducible with normal latencies and morphology. The data from neurophysiological monitoring of somatosensory evoked potentials showed no evidence to suggest change in the posterior column-medial lemniscus cortical pathways as a consequence of this surgery. Repetitive Nerve Stimulation: TO4 (train of 4) was frequently run throughout the procedure to monitor for neuromuscular blockade. A nerve was repetitively stimulation and the compound motor action potentials (CMAPs) recorded from adistal motor group. TO4 was assessed during critical periods of surgery and demonstrated that neuromuscular blockade was not present while monitoring EMGs and TcMEP. EEG: Electroencephalography: Post induction EEG was monitorable with interhemispheric symmetry. EEG was continuously monitored throughout the procedure. No significant changes in the EEG were observed. I remotely monitored and supervised this case in real-time, online via a secure HIPAA-compliant network. TEDDY Smith MD,MPHCoRory white RN - 12/29/2017 11:31 AM CSTArteriogram and Embolization (Neuro and Body): Femoral Manual Sheath WITH Closure Device 1. Vital signs q 15 minutes x 4; q 30 minutes x 2; q 1 hour x 4, q 2 hours x 2 then resume prior order. 2. Bed rest 2 hours after hemostasis obtained. May discharge outpatient at this time. 3. May elevate HOB 30 degrees after hemostasis obtained. Return to flat/supine position for any recurrent bleeding. 4. Check distal pulses with vital signs. 5. Check puncture site for bleeding or hematoma with vital signs. Restart checks after any bleeding episode post hemostasis. 6. Check affected extremity for sensation, motion, color and temperature with vital signs. 7. For Cerebral Arteriogram with an intervention perform a neurological exam ( LOC, orientation, pupillary size and response, motor strength and sensation, [place] Coma Scale) with each set of VS. 8. No lifting over 10lbs for one week. 9. Patient may shower in 24 hours. Pt ambulation time is 1300. Pt transported to OR room 2 with anesthesia and RT present.Chantal Matute RN - 12/29/2017 11:15 AM CSTReceived update from ERMELINDA Valadez in IR. States patient will require clipping in OR, patient now on ventilator, has arterial line and velázquez. Pt's nephew in room, updated by Neurosurgery team and this RN. Will await for patient to return to room from OR.Rory Palma, ERMELINDA - 12/29/2017 9: 21 AM CSTAnesthesia to monitor vital signs and adm medications.Chantal Matute , ERMELINDA - 12/29/2017 8:45 AM CSTPatient taken to IR at approx. 0830 with ERMELINDA Valadez -IR ICU nurse, and Anesthesia. Patient sent on monitors, VSS prior to transfer. Handoff report given to ERMELINDA Valadez. Patient sent with chart-procedure and anesthesia consent obtained and inside.Ana María Gleason, - 12/29/2017 6:27 AM CSTFormatting of this note may be different from the original. RESPIRATORY THERAPY ADULT PROTOCOL EVALUATION RESPIRATORY PROTOCOL PLAN Medications Note: If indicated by protocol, medication orders will be placed by therapist. Procedures PATIENT EVALUATION RESULTS Chart Review * Pulmonary Hx: No pulmonary diagnosis OR no smoking hx * Surgical Hx: No surgery OR last surgery > 6 weeks ago OR trach/stoma (BA) * Chest X-Ray: Clear OR not available * PFT/Oxygenation: FEV1, PEFR > 80% predicted OR physically unable to perform OR Pa02 >80 RA OR Sp02 >95% RA Patient Assessment * Respiratory Pattern: Regular pattern and rate OR good chest excursion with deep breathing * Breath Sounds: Clear and able to auscultate bases posteriorly * Cough / Sputum: Strong, effective cough OR nonproductive * Mental Status: Alert, oriented, cooperative * Activity Level: Ambulatory with assistance Priority Index Total Points: 1 Points * Priority Index: Criteria not met PRIORITY INDEX GUIDELINES* Priority Points 1 0-9 points 2 9-18 points 3 > 18 points + Pulm Dx or Home Rx *Higher points indicate higher acuity. Therapist: Ana María Gleason, RT Date: 12/29/2017 [place] AC=Airway clearance AM=Aerosolized medication BA=[place] aerosol DB&C=Deep breathe & cough FEV1=Forced expiratory volume in first second) IC=Inspiratory capacity LE=Lung expansion MDI=Metered dose inhaler Neb=Nebulizer O2=Oxygen Oxim=Oximetry PEFR=Peak expiratory flow rate IT SECURITY SPECIALIST=Rapid Response Team Dejah Portillo RN - 12/29/2017 5:00 AM CSTPatient arrived to room # 5110 via life flight accompanied by EMS. Patient transferred to the bed with assistance. Bedside safety checks completed. Initial patient assessment completed, refer to flowsheet for details. Admission skin assessment completed by: Pressure Injury Present: no 1. Occiput: no 2. Ear: no 3. Scapula: no 4. Spinous Process: no 5. Shoulder: no 6. Elbow: no 7. Iliac Crest: no 8. Sacrum/Coccyx: no 9. Ischial Tuberosity: no 10. Trochanter: no 11. Knee: no 12. Malleolus: no 13. Heel: no 14. Toes: no See Doc Flowsheet for additional wound details. Large bruise noted on L hip/ flank area from fall in shower. in this encounter H&P Notes Yenny Narvaez, MSN,ANIMAL SHELTER WORKER - 12/29/2017 8:28 AM CSTFormatting of this note may be different from the original. Pre Procedure History and Physical/Sedation Plan Procedure Date: 12/29/2017 Planned Procedure(s): Cerebral angiogram with possible intervention Chief Complaint: SAH, aneurysm Previous Anesthetic/Sedation History: Per anesthesia. Allergies: Codeine and Penicillins Medications: Scheduled Meds: docusate (COLACE) capsule 100 mg 100 mg Oral BID insulin aspart (NOVOLOG FLEXPEN) injection PEN 0-14 Units 0-14 Units Subcutaneous ACHS levETIRAcetam in NaCl (iso-os) (KEPPRA) IVPB (premade) 500 mg 100 mL 500 mg Intravenous BID milk of magnesia (CONC) oral suspension 10 mL 10 mL Oral QDAY niMODipine (NYMALIZE) 3 mg/ mL solution 60 mg 60 mg Feeding Tube Q4H senna/docusate (SENOKOT-S) tablet 1 tablet 1 tablet Oral BID Continuous Infusions: niCARdipine (cardENE) 20 mg/NS 200 mL infusion (std conc)(premade) sodium chloride 0.9 % infusion 75 mL/hr at 12/29/17 0533 sodium chloride 0.9 % infusion PRN and Respiratory Meds:acetaminophen Q4H PRN OR acetaminophen Q4H PRN, calcium gluconate IVPB PRN (Full Stack Python Developer from Rx) AND Ionized Calcium PRN AND* * Notify Physician Ongoing, fentaNYL citrate PF Q1H PRN, hydrALAZINE Q6H PRN, labetalol (NORMODYNE; TRANDATE) injection Q15 MIN PRN, magnesium sulfate PRN AND Magnesium PRN AND Notify Physician Ongoing, ondansetron (ZOFRAN) IV Q6H PRN, oxyCODONE Q4H PRN, potassium chloride SR PRN OR potassium chloride PRN, sodium phosphate IVPB PRN (Full Stack Python Developer from Rx) AND Phosphorus PRN AND* * Notify Physician Ongoing Vital Signs: Last Filed Vital Signs: 24 Hour Range BP: 156/52 (12/29 699) Temp: 36.6 C (97.9 F) (12/29 509) Pulse: 75 (12/29 699) Respirations: 16 PER MINUTE (12/29 699) SpO2: 98 % (12/29 699) O2 Delivery: None (Room Air) (12/29 599) SpO2 Pulse: 75 (12/29 599) BP: (149-164)/(52-108) Temp: [36.6 C (97.9 F)] Pulse: [75-80] Respirations: [11 PER MINUTE-25 PER MINUTE] SpO2: [95 %-98 %] O2 Delivery: None (Room Air) Sedation/Medication Plan: General Anesthesia Personal history of sedation complications: Denies adverse event. Family history of sedation complications: Denies adverse event. Medications for Reversal: Per anesthesia. Discussion/Reviews: Dr. Helm has discussed risks and alternatives of this type of sedation and above planned procedures with patient NPO Status: Acceptable Airway: Per anesthesia Head and Neck: Per anesthesia. Mouth: Per anesthesia. Anesthesia Classification: ASA III (A patient with a severe systemic disease that limits activity, but is not incapacitating) Status: Not Lab/Radiology/Other Diagnostic Tests Labs: Relevant labs reviewed I have examined the patient, and there are no significant changes in their condition, from the previous H&P performed on 12/29/17. Yenny Narvaez, MSN,ANIMAL SHELTER WORKER Pager [phone] Nata Thayer, DO - 12/29/2017 3:13 AM CSTFormatting of this note may be different from the original. Neuroscience Critical Care History and Physical Yarely Dillno Admission Date: (Not on file) LOS: 0 days No Order ASSESSMENT/PLAN Yarely Dillon is a 72 y.o. female with PMH DM, HTN who presented to OSH after fall in shower at approximately 2014 on 12/28. Developed pain in back of head, twisted to turn water off and lost consciousness. Woke up less than 10min after event, got herself up and got her . Had nausea and vomiting post-LOC, improved with medications in ED. Denies confusion, weakness post- LOC. CT head obtained with evidence of SAH, transferred to [facility] for management of traumatic vs aneurysmal SAH. Patient Active Problem List Diagnosis Diabetes (HCC) Hypertension Subarachnoid hemorrhage (HCC) Parkinson's disease (HCC) Hospital and ICU course: 01/01: Transfer from [place], [place] with SAH. Neurologically intact. 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 Fentanyl, oxycodone, tylenol Assess for delirium daily Cardiac: Hx HTN - AIRCRAFT LANDING GEAR INSPECTOR spironolactone/HCTZ 25-25mg QD - AIRCRAFT LANDING GEAR INSPECTOR Methyldopa 1 tab BID - Prn labetalol, hydralazine, cardene for BP goal MAP goal > 65, SBP goal <140 Respiratory: No acute issues PaO2 goal >100, Spo2 goal >95%, PCO2 goal 35-40 torr, chest physiotherapy , bronchotherapy, PD& V q 6 hrs GI: No acute issues Feeding: NPO until eval completed, neurosurgery bowel regimen, ensure daily BM Heme: Thrombocytopenia, mild assess for coagulopathy, maintain platelets above 100k, INR <1.5 ID: No acute issues aim for normothermia, Temp <38.3 celsius, normothermia protocol if febrile Renal: Aim for normovolemia, I/O balance n/a over 24 hrs Endocrine: Hx DM - AIRCRAFT LANDING GEAR INSPECTOR metformin-glyburide 2.5-500 1 tab BID - A1C pending Blood glucose goal 100-180mg/dl FEN: IVF while NPO , Magnesium goal >2.0, i-Dennis goal > 1.0, Potassium goal >4.0 mEq/L IVF: NS @ 75mL/hr Prophylaxis Review: Prophylaxis: A)GI: None B) Lines: No C) Urinary Catheter: No D) Antibiotic Usage: No E) VTE: Mechanical prophylaxis; Sequential compression device F) Isolation: None G)Seizures: None I) Restraints: Patient assessed for need for restraints. Disposition/Family: Admit to [facility] Primary service: NCC Consults: Neurosurgery __ SUBJECTIVE Chief Complaint: SAH History of Present Illness: Yarely Dillon is a 72 y.o. female with PMH DM, HTN who presented to OSH after fall in shower at her home at approximately 2014 on 12/28. Developed pain in back of head, twisted to turn water off and lost consciousness. Woke up less than 10min after event, got herself up andgot her . Had nausea and vomiting post-LOC, improved with medications in ED. Pain on left side of body where she hit. Denies confusion, weakness post- LOC. CT head obtained with evidence of SAH,transferred to [facility] for management of traumatic vs aneurysmal SAH. Past Medical History: Diagnosis Date DM (diabetes mellitus) (HCC) HTN (hypertension) Past Surgical History: Procedure Laterality Date HX TONSILLECTOMY Family history reviewed; non-contributory Social History: Lives with Asaf, no children but 2 nephews in [place]. Perform all ADLs independently Code Status: Full Code Decision Maker: Asaf Immunizations (includes history and patient reported): There is no immunization history on file for this patient. Allergies: Patient has no allergy information on record. Medications: No prescriptions prior to admission. Review of Systems: All other systems reviewed and are negative. OBJECTIVE Vital Signs: Last Filed Vital Signs: 24 Hour Range BP: ()/() ABP: ()/() Intensity Pain Scale 0-10 (Pain 1): (not recorded) There were no vitals filed for this visit. Artificial airway: None Ventilator/ Respiratory Therapy: No Vent weaning trial: Not applicable Lines: Peripheral Line Drains: None Scheduled Meds: docusate (COLACE) capsule 100 mg 100 mg Oral BID levETIRAcetam in NaCl (iso-os) (KEPPRA) IVPB (premade) 500 mg 100 mL 500 mg Intravenous BID milk of magnesia (CONC) oral suspension 10 mL 10 mL Oral QDAY niMODipine (NYMALIZE) 3 mg/ mL solution 60 mg 60 mg Feeding Tube Q4H senna/docusate (SENOKOT-S) tablet 1 tablet 1 tablet Oral BID Continuous Infusions: sodium chloride 0.9 % infusion PRN and Respiratory Meds:acetaminophen Q4H PRN OR acetaminophen Q4H PRN, calcium gluconate IVPB PRN (Full Stack Python Developer from Rx) AND Ionized Calcium PRN AND* * Notify Physician Ongoing, fentaNYL citrate PF Q1H PRN, hydrALAZINE Q6H PRN, labetalol (NORMODYNE; TRANDATE) injection Q15 MIN PRN, magnesium sulfate PRN AND Magnesium PRN AND Notify Physician Ongoing, ondansetron (ZOFRAN) IV Q6H PRN, oxyCODONE Q4H PRN, potassium chloride SR PRN OR potassium chloride PRN, sodium phosphate IVPB PRN (Full Stack Python Developer from Rx) AND Phosphorus PRN AND* * Notify Physician Ongoing Critical Care Vitals: ICP Monitoring: Hemodynamics/Oxycalcs: There were no vitals taken for this visit. Intake/Output Summary: (Last 24 hours) No intake or output data in the 24 hours ending 12/29/17 0314 Physical Exam: There were no vitals taken for this visit. General appearance: alert Neurologic: Pupil exam: PERRLA - Corneal reflex: R - present L - present - Cough: present - Gag reflex: present EOM: intact [place] coma score: E: 4 M: 6 V: 5 alert, oriented X4, sensation: no evidence of neuropathy, gait: normal RUE: Strength: 5/5; flexors/extensors, cooperative RLE Strength: 5/5; flexors/extensors, cooperative LUE: Strength: 5/5; flexors/extensors, cooperative LLE: Strength: 5/5; flexors/extensors, cooperative Lungs: clear to auscultation bilaterally Pulmonary: stable Heart: regular rate and rhythm, S1, S2 normal, no murmur, click, rub or gallop Abdomen: soft, non-tender. Bowel sounds normal. No masses, no organomegaly Extremities: extremities normal, atraumatic, no cyanosis or edema Skin: Contusion to right side Lab Review: Pertinent labs reviewed Medications: docusate (COLACE) capsule 100 mg 100 mg Oral BID levETIRAcetam in NaCl (iso-os) (KEPPRA) IVPB (premade) 500 mg 100 mL 500 mg Intravenous BID milk of magnesia (CONC) oral suspension 10 mL 10 mL Oral QDAY niMODipine (NYMALIZE) 3 mg/ mL solution 60 mg 60 mg Feeding Tube Q4H senna/docusate (SENOKOT-S) tablet 1 tablet 1 tablet Oral BID Point of Care Testing: (Last 24 hours): Radiology and Other Diagnostic Procedures Review: CTA pending Nata Thayer, DO Date: 12/29/2017 Associated attestation - Ana Harvey MD - 12/30/2017 12:23 PM CSTFormatting of this note may be different from the original. ATTESTATION I have seen, personally fully evaluated, and discussed patient with Dr. Thayer. I agree with the objective findings and agree with the plan of care as documented by the resident with the exceptions noted. The patient is critically ill with SAH. Seen after aneurysm clipping - still sedated from OR but highly likely that even as sedation wears off, she will have some cognitive impairment from SAH. Continue close monitoring for vasospasm. I spent 40 minutes (excluding time spent performing or supervising any procedures) providing and personally directing critical care services, including reviewing imaging and laboratory results. Staff name: Ana Harvey MD Date: 12/30/2017 in this encounter Consult Notes Geoffrey Pantoja MD - 01/07/2018 2:35 PM CSTAssociated Order(s): CONSULT INTERNAL MEDICINE PHYSICIANFormatting of this note may be different from the original. Admission History and Physical Examination Name: Yarely Dillon Admission Date: 12/29/2017 Assessment/Plan: Ms. Dillon is a 72 yo female with a history of HTN and TIIDM who initially presented as OSH transferfor SAH. Internal Medicine is consulted for assist in returning to home diabetes medication for discharge. #. TIIDM - was previously on glyburide and metformin prior to admission with HgbA1C 6.7% - was started florinef, lantus and correction factor on admission - suspect patient may have worsening glucose tolerance with decadron and now florinef - discussed with primary team who plans to try and wean off florinef - will continue insulin for now and will restart harbor tug captain metformin and glyburide when able to wean off corticosteroids. #. HTN - currently holding harbor tug captain spironolactone/HCTZ. - continue methyldopa and nimodipine per primary team #. SAH - s/p craniotomy and clipping - keppra - management per primary team __ History of Present Illness: Ms. Dillon is a 72 yo female with a history of HTN and TIIDM who initially presented as OSH transferfor SAH. Internal Medicine is consulted for assist in returning to home diabetes medication for discharge. Patient was taking on shower and felt pain in her neck. She turned her head to turn of the water and fell in the shower and lost consciousness. She did wake up and got her . She did have associated nausea and vomiting. Past Medical History: Diagnosis Date DM (diabetes mellitus) (HCC) HTN (hypertension) Past Surgical History: Procedure Laterality Date HX TONSILLECTOMY Family history reviewed; non-contributory Social History Social History Marital status: Spouse name: N/A Number of children: N/A Years of education: N/A Social History Main Topics Smoking status: Former Smoker Smokeless tobacco: Never Used Alcohol use No Drug use: Unknown Sexual activity: Not on file Other Topics Concern Not on file Social History Narrative Lives with Asaf, no children but 2 nephews in [place]. Perform all ADLs independently Immunizations (includes history and patient reported): There is no immunization history on file for this patient. Allergies: Codeine and Penicillins Medications: Prescriptions Prior to Admission Medication Sig glyBURIDE-metformin (GLUCOVANCE) 2.5-500 mg tablet Take 1 tablet by mouth twice daily. Take withfood. methyldopa (ALDOMET) 250 mg tablet Take 250 mg by mouth twice daily. spironolactone-hydrochlorothiazide (ALDACTAZIDE) 25-25 mg tablet Take 1 tablet by mouth every morning. Review of Systems: A 14 point review of systems was negative except for: Constitutional: positive for fatigue Physical Exam: Vital Signs: Last Filed In 24 Hours Vital Signs: 24 Hour Range BP: 141/62 (01/07 1200) Temp: 36.8 C (98.3 F) (01/07 1200) Pulse: 68 (01/07 1200) Respirations: 17 PER MINUTE (01/07 0900) SpO2: 99 % (01/07 1200) O2 Delivery: None (Room Air) (01/07 1200) SpO2 Pulse: 68 (01/07 1200) BP: (105-170)/(38-87) Temp: [36.6 C (97.8 F)-37.1 C (98.7 F)] Pulse: [60-91] Respirations: [7 PER MINUTE-33 PER MINUTE] SpO2: [94 %-100 %] O2 Delivery: None (Room Air) Intensity Pain Scale 0-10 (Pain 1): 4 (01/07/18 1200) General: Alert and oriented, in no apparent distress Skin/Hair/Nails: Skin: warm, normal turgor, pink color, no cyanosis, pallor or jaundice, HEENT: Eyes: PERRL, sclera white, conjuctivae pink Ears: acuity good to whispered voice Nose: nasal mucosa pink Mouth: oral mucosa moist and pink, dentition good, Lymph nodes: no auricular, cervical, submandibular, LAD Thorax and Lungs: normal AP diameter. Lungs:breath sounds clear bilaterally. no wheezes, rhonchi, crackles. Cardiovascular: Regular rhythm,crisp S1/S2. No S3, S4. No murmurs, rubs or gallops. No heaves, liftsor thrills. No JVD or HJR. Abdomen: soft, non-tender to palpation, non-distended. active bowel sounds. Ext: warm and without edema. calves supple and non-tender Neuro: Mental status: alert and cooperative. Thought coherent, oriented to person, place and time CN: II-XII intact Lab/Radiology/Other Diagnostic Tests: 24-hour labs: Results for orders placed or performed during the hospital encounter of (from the past 24 hour(s)) POC GLUCOSE Collection Time: 01/06/18 4:26 PM Result Value Ref Range Glucose, POC 189 (H) 70 - 100 MG/DL POC GLUCOSE Collection Time: 01/06/18 10:04 PM Result Value Ref Range Glucose, POC 157 (H) 70 - 100 MG/DL BASIC METABOLIC PANEL Collection Time: 01/07/18 3:34 AM Result Value Ref Range Sodium 136 (L) 137 - 147 MMOL/L Potassium 4.3 3.5 - 5.1 MMOL/L Chloride 109 98 - 110 MMOL/L CO2 20 (L) 21 - 30 MMOL/L Anion Gap 7 3 - 12 Glucose 150 (H) 70 - 100 MG/DL Blood Urea Nitrogen 21 7 - 25 MG/DL Creatinine 0.72 0.4 - 1.00 MG/DL Calcium 8.4 (L) 8.5 - 10.6 MG/DL eGFR Non >60 >60 mL/min eGFR >60 >60 mL/min MAGNESIUM Collection Time: 01/07/18 3:34 AM Result Value Ref Range Magnesium 2.0 1.6 - 2.6 mg/dL PHOSPHORUS Collection Time: 01/07/18 3:34 AM Result Value Ref Range Phosphorus 2.8 2.0 - 4.0 MG/DL IONIZED CALCIUM Collection Time: 01/07/18 3:34 AM Result Value Ref Range Ionized Calcium 1.17 1.0 - 1.3 MMOL/L CBC AND DIFF Collection Time: 01/07/18 3:34 AM Result Value Ref Range White Blood Cells 7.5 4.5 - 11.0 K/UL RBC 3.23 (L) 4.0 - 5.0 M/UL Hemoglobin 10.0 (L) 12.0 - 15.0 GM/DL Hematocrit 29.4 (L) 36 - 45 % MCV 91.1 80 - 100 FL MCH 31.0 26 - 34 PG MCHC 34.1 32.0 - 36.0 G/DL RDW 14.3 11 - 15 % Platelet Count 176 150 - 400 K/UL MPV 7.1 7 - 11 FL Neutrophils 68 41 - 77 % Lymphocytes 24 24 - 44 % Monocytes 6 4 - 12 % Eosinophils 2 0 - 5 % Basophils 0 0 - 2 % Absolute Neutrophil Count 5.10 1.8 - 7.0 K/UL Absolute Lymph Count 1.80 1.0 - 4.8 K/UL Absolute Monocyte Count 0.50 0 - 0.80 K/UL Absolute Eosinophil Count 0.10 0 - 0.45 K/UL Absolute Basophil Count 0.00 0 - 0.20 K/UL POC GLUCOSE Collection Time: 01/07/18 8:07 AM Result Value Ref Range Glucose, POC 200 (H) 70 - 100 MG/DL POC GLUCOSE Collection Time: 01/07/18 11:37 AM Result Value Ref Range Glucose, POC 218 (H) 70 - 100 MG/DL Glucose: (!) 150 (01/07/18 0334) POC Glucose (Download): (!) 218 (01/07/18 1137) Pertinent radiology reviewed. Geoffrey Pantoja MD Pager Associated attestation - Mikayla Wilkerson MD - 01/07/2018 10:33 PM CSTFormatting of this note may be different from the original. ATTESTATION I personally performed the jackson portions of the E/M visit, discussed case with resident and concur with resident documentation of history, physical exam, assessment, and treatment plan unless otherwise noted. Staff name: Mikayla Wilkerson MD Date: 01/07/2018 Ruben Hernández MD - 01/06/2018 8:54 AM CSTAssociated Order(s): CONSULT REHABILITATION MEDICINE PHYSICIANFormatting of this note may be different from the original. Physical Medicine & Rehabilitation Consult Note Date of Service: 01/06/2018 Yarely Dillon is a 72 y.o. female. : 1945 Primary Insurance: MEDICARE Secondary Insurance: [employer] Tertiary Insurance: Financial Class: Medicare Date of Admission: 12/29/2017 Referring Physician: Oumar Mercer MD Reason for Consult: evaluate for Post-Acute Rehab/Placement Precautions: Fall, Weight bearing Precautions: Progressive mobility Active Problems Subarachnoid Hemorrhage Acomm aneurysm s/p clipping Pcomm aneurysm Impaired ADLs Gait abnormality Assessment & Plan Yarely Dillon is a 72 y.o. female admitted to [facility] on 12/29/2017 with the following issues: stroke Impairments: hemiplegia and weakness Activity Limitations: grooming, bathing, dressing - upper, dressing - lower, toileting, transfers, ambulation and stairs Participation Restrictions: unable to return home safely Post-acute care rehabilitation needs: acute inpatient rehabilitation Goals & Barriers Family / Patient Goals: return home to previous level of function Mobility Goals: Overall goal is Modified independent Activities of Daily Living (ADLs) Goals: Overall goal is Modified independent Cognition / Communication Goals: Speech therapy will evaluate and treat cognition and communication deficits and assess for safe swallow Barriers: Caregiver apprehension, High burden of care and Medical complexity Facilitators: controlled pain, good family / social support, patient motivation , improving strength / endurance and improving medical condition Rehabilitation Prognosis: Fair to good Tolerance for three hours of therapy a day: Good Prior to the inpatient rehabilitation admission complete the following: *Therapeutic goals The patient will need to have clear therapeutic goals with at least 2 out of 3 therapeutic disciplines, including PT, OT, and FREIGHT SOLICITOR. This will need to be determined prior to considering admission to acute inpatient rehabilitation. Rehab: Patient with deficits in bed mobility, transfers, gait, ambulation, self- cares and ADLs. Has been working with OT and PT and has continued goals with both disciplines. Differences between acute and subacute/SNF and qualifications for each one were explained to patient. Recommendations: Cognition: FREIGHT SOLICITOR following cognitive deficits and recommending consistent supervision at this time due to lethargy, reduced attention and verbal expression. Pain: Pain currently treated with Oxycodone 5mg PO Q4h prn. Patient would benefit from pre-treatmentof pain prior to therapies and possibly scheduling Tylenol 650mg-1g TID while awake for improved pain and function (If LFT is WNL) Bowel: Last BM documented 01/05/18. Agree with bowel regimen given immobility and while on opiate 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 Bladder: Voiding independently Post-acute rehabilitation needs/disposition: Patient currently w/ medical complexity and goals in therapies appropriate for acute inpatient rehabvs. progression to home w/ HH therapies at discharge. Ruben Hernández MD Rehab Consult Pager: [phone] History of Present Illness CC: L sided weakness Hospital Course: Yarely Dillon is a 72 y.o. female w/ PMHx of DM, HTN who was transferred to [facility] from [facility] 12/29 after fall w/ subsequent SAH and found to have Acomm aneurysm s/p left craniotomy and clipping by Dr. Mercer. Also has Pcomm aneurysm. Hospital course has been complicated by AMS and agitation requiring restraints and CO. She is getting near daily TCDs monitoring for vasospasm. PT/OT/FREIGHT SOLICITOR consulted for therapies and rehab has been consulted for placement. Patient reports being independent prior to hospitalization. She lives with her who can provide assistance at home if needed. Past Medical History Past Medical History: Diagnosis Date DM (diabetes mellitus) (HCC) HTN (hypertension) Past Surgical History Past Surgical History: Procedure Laterality Date HX TONSILLECTOMY Family\\Social History Social History Social History Marital status: Spouse name: N/A Number of children: N/A Years of education: N/A Social History Main Topics Smoking status: Former Smoker Smokeless tobacco: Never Used Alcohol use No Drug use: Unknown Sexual activity: Not on file Other Topics Concern Not on file Social History Narrative Lives with Asaf, no children but 2 nephews in [place]. Perform all ADLs independently History reviewed. No pertinent family history. Medications: docusate (COLACE) capsule 100 mg 100 mg Oral BID fludrocortisone (FLORINEF) tablet 0.1 mg 0.1 mg Oral BID heparin (porcine) PF syringe 5,000 Units 5,000 Units Subcutaneous Q8H insulin aspart (NOVOLOG FLEXPEN) injection PEN 0-28 Units 0-28 Units Subcutaneous ACHS insulin glargine (LANTUS SOLOSTAR, BASAGLAR) injection PEN 10 Units 10 Units Subcutaneous QDAY levETIRAcetam (KEPPRA) tablet 500 mg 500 mg Oral BID melatonin tablet 3 mg 3 mg Oral QHS methyldopa (ALDOMET) tablet 250 mg 250 mg Oral BID milk of magnesia (CONC) oral suspension 10 mL 10 mL Oral QDAY niMODipine (NIMOTOP) capsule 60 mg 60 mg Oral Q4H* senna/docusate (SENOKOT-S) tablet 1 tablet 1 tablet Oral BID sodium chloride 0.9 % infusion Intravenous Q4H sodium chloride(#) inj for po solution 34 mEq 34 mEq Oral Q6H PRN Medications: acetaminophen Q4H PRN OR acetaminophen Q4H PRN, bisacodyl QDAY PRN, calcium gluconate IVPB PRN (Full Stack Python Developer from Rx) AND Ionized Calcium PRN AND Notify Physician Ongoing, hydrALAZINE Q6H PRN, labetalol (NORMODYNE; TRANDATE) injection Q15 MIN PRN, magnesium sulfate PRN AND Magnesium PRN AND Notify Physician Ongoing, ondansetron (ZOFRAN) IV Q6H PRN, oxyCODONE Q4H PRN, potassium chlorideSR PRN OR potassium chloride PRN, sodium phosphate IVPB PRN (Full Stack Python Developer from Rx) AND Phosphorus PRN AND Notify Physician Ongoing Allergies: Allergies Allergen Reactions Codeine UNKNOWN Penicillins UNKNOWN Prior Level of Function Lives in [place], [place] with her in a house. She was independent w/o use of DME prior to hospitalization. Her does not work and can provide assistance. Home Environment: Home Situation: Lives with Family (01/01/2018 10:00 AM) Patient Owned Equipment: None (01/01/2018 10:00 AM) Type of Home: House (01/01/2018 10:00 AM) Entry Stairs: 3-5 Stairs (01/01/2018 10:00 AM) In-Home Stairs: Able to Live on One Level (01/01/2018 10:00 AM) Comments: Patient unable to provide PLOF information this date. information obtained from EMR - will need to clarify stairs in home. Patient does appear to have a hisory of falls outside of this incident. (12/31/2017 10:00 AM) Current Level Of Function: PT Gait:Gait Distance: 200 feet Gait: Assistance Level: Minimal Assist Gait: Assistive Device: Hand Hold Assist Bed Mobility/Transfers Bed Mobility: Supine to Sit: Moderate Assist, Assist with Trunk, Head of Bed Elevated Bed Mobility: Sit to Supine: Minimal Assist, Assist with L LE, Bed Flat Transfer Type: Sit to Stand Transfer: Assistance Level: To/From, Bed, Bed Side Chair, Minimal Assist Transfer: Assistive Device: None Transfers: Type Of Assistance: Verbal Cues, For Balance, For Strength Deficit, For Safety Considerations End Of Activity Status: Up in Chair, Nursing Notified, Instructed Patient to Request Assist with Mobility, Instructed Patient to Use Call Light (TABs alarm in seat) OT ADL's Where Assessed: Standing at Sink Grooming Assist: Moderate Assist Grooming Deficits: Teeth Care, Brushing Hair (Assist to comb hair) Toileting Assist: Moderate Assist Toileting Deficits: Steadying, Clothing Management Down Functional Transfer Assist: Minimal Assist Functional Transfer Deficits: (Room mobility) Comment: Patient ambulated in hallway to increase endurance for OOB activity. Patient required encouragement to keep going due to wanting to return to room. Patient seated in chair at end of session, TABS alarm on. FREIGHT SOLICITOR COGNITIVE EVALUATION SUMMARY PRAGMATICS: BEHAVIOR: AUDITORY COMPREHENSION: ORIENTATION: AUDITORY ATTENTION/WORKING MEMORY: AUDITORY MEMORY/SUSTAINED ATTENTION: NEW LEARNING: SEQUENCING/ORGANIZATION: PROBLEM SOLVING: REASONING: MATH/MONEY SKILLS: VISUAL PERCEPTUAL: SWALLOW EVALUATION SUMMARY Summary: A clinical swallow eval was completed and a communication evaluation was initiated however unable to complete. Pt Oral Stage Summary*: Within funcitonal limits. Pharyngeal Stage Summary*: Suspect presence of minimal pharyngeal dysphagia. Swallow Recommendations* Swallow Strategies: Supervision During Meals, Small Bites/Sips, Slow Rate of Intake (pt must be fully alert) Plan: Continue Treatment __x/week (Comment). (3-5x/wk) Prognosis: Good Review of Systems A 14 point review of systems was negative except for: as noted per HPI Physical Exam BP: 123/46 (01/06 0700) Temp: 36.6 C (97.8 F) (01/06 800) Pulse: 60 (01/06 700) Respirations: 11 PER MINUTE (01/06 700) SpO2: 97 % (01/06 700) O2 Delivery: None (Room Air) (01/06 700) SpO2 Pulse: 60 (01/06 700) Body mass index is 37.46 kg/m. Gen: well appearing, NAD CV: well perfused, distal pulses intact Pulm: breathing unlabored, normal effort Abd: nondistended Extremities: No edema Skin: no obvious rashes or lesions on exposed surfaces Psych: Appropriate mood, normal affect : No velázquez MS: Root Right Left Shoulder Abduction C5 4 4 Elbow Flexion C5 5 5 Elbow Extension C7 5 5 Wrist Extension C6 5 5 Finger Flexion C8 5 5 Finger Abduction T1 5 5 Hip Flexion L2 5 4 Knee Flexion L5/S1 5 5 Knee Extension L3 5 5 Dorsiflexion L4 5 5 Plantarflexion S1 5 5 EHL Extension L5 5 5 Neuro: Cranial Nerves Cranial Nerves 2-12 are grossly intact DTR's No hyperreflexia Morel Normal Finger to Nose Normal Rapid Alternating Movements Normal Upper Extremity Tone Normal Lower Extremity Tone Normal Upper Extremity Sensation Intact to light touch bilaterally Lower Extremity Sensation Intact to light touch bilaterally Clonus Negative Bilaterally Memory/Cognition/Speech Grossly intact. A&Ox4. Speech fluent in conversation. Intake/Output Summary: Intake/Output Summary (Last 24 hours) at 01/06/18 0854 Last data filed at 01/06/18 0826 Gross per 24 hour Intake 1850 ml Output 3625 ml Net -1775 ml Stool Occurrence: 1 (01/06/2018 8:26 AM) Last BM Date: 01/05/18 (01/05/2018 8 :00 PM) BVI (Bladder Scan)(mL): 40 milliliters (pre-void) (01/03/2018 11:00 AM ) Oral Diet Order: Diabetic 1404-8453 Kcal/day (60 g Carb/meal, 30 g Carb/HS snack) (01/04/2018 1:00 PM) Basic Metabolic Profile Lab Results Component Value Date/Time NA 134 (L) 01/06/2018 03:14 AM K 4.3 01/06/2018 03:14 AM CA 8.3 (L) 01/06/2018 03:14 AM CL 110 01/06/2018 03:14 AM CO2 18 (L) 01/06/2018 03:14 AM Lab Results Component Value Date/Time BUN 22 01/06/2018 03:14 AM CR 0.82 01/06/2018 03:14 AM GLU 136 (H) 01/06/2018 03:14 AM CBC w/Diff Lab Results Component Value Date/Time WBC 8.2 01/06/2018 03:14 AM RBC 2.97 (L) 01/06/2018 03:14 AM HGB 9.3 (L) 01/06/2018 03:14 AM HCT 26.8 (L) 01/06/2018 03:14 AM MCV 90.2 01/06/2018 03:14 AM MCH 31.4 01/06/2018 03:14 AM RDW 14.1 01/06/2018 03:14 AM PLTCT 163 01/06/2018 03:14 AM MPV 7.1 01/06/2018 03:14 AM Lab Results Component Value Date/Time NEUT 69 01/06/2018 03:14 AM ANC 5.60 01/06/2018 03:14 AM LYMA 23 (L) 01/06/2018 03:14 AM ALC 1.90 01/06/2018 03:14 AM MADDIE 6 01/06/2018 03:14 AM AMC 0.50 01/06/2018 03:14 AM EOSA 2 01/06/2018 03:14 AM AEC 0.10 01/06/2018 03:14 AM BASA 0 01/06/2018 03:14 AM ABC 0.00 01/06/2018 03:14 AM Radiology: CTA Head w/wo contrast: IMPRESSION 1. Interval left pterional craniotomy and anterior communicating artery aneurysm clipping. No refilling of the aneurysm identified. 2. Slight improvement in basilar subarachnoid hemorrhage with persistent sulcal effacement. 3. Slight decrease in size of the posterior commuting arteries, which may be due to contrast bolus timing or early mild vasospasm. 4. 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 Finalized on 12/30/2017 12:45 PM. Associated attestation - Chaz Osman MD - 01/07/2018 10:08 AM CSTRehabilitation Medicine Attending Physician Attestation: Agree with resident. Yarely Dillon is a pleasant 72 y.o. female with PMH of DM Type 2 and HTN, who was admitted upon transfer from OSH on 12/29/2017 after a fall in the shower and noted LOC on 12/28/2017 with eventual determination that she experienced SAH. She was admitted to NeICU and co-managed by NS team, with noted AComm aneurysm on cerebral angiogram by Dr. Helm. With suspected bleed from that lesion per NS, she underwent left pterional craniotomy for clipping of AComm aneurysm by Dr. Mercer on 12/29/2017. She has been managed in NeICU up to this point, with complications of transientagitation/confusion/ impulsivity on Decadron taper (since completed) and currently on daily TCDs withoral Nimodipine treatment. She continues to be managed on acute care but has thus experienced an acute hemorrhagic stroke, with resulting cognitive significant functional deficits as noted. She seemsto be progressing quite well , with some element of behavioral limitations to her function (as discussed with PT) and should be able to return home with assistance/supervision from her spouse and HH therapies if she continues to progress, but at this very moment seems to have medical complexity and mayhave goals with PT, OT, and FREIGHT SOLICITOR for short acute inpatient rehabilitation stay. Again, determinationfor inpatient needs are contingent on discharge readiness, but in the meantime, we recommend continued therapies with PT, OT, and FREIGHT SOLICITOR, while the primary team manages the patient. Discussed with the patient who reports her high preference to return home. Will continue to follow for medical stability/appropriateness for discharge. Thank you for this consultation. Please call with questions/ concerns. I personally performed jackson portions of the history and exam. I discussed the case with the resident and concur with the resident's documentation of history, physical assessment and treatment plan unless otherwise noted. Carol Ann Boss Paul J, MD - 12/29/2017 5:19 AM CSTAssociated Order( s): CONSULT NEUROSURGERY PHYSICIANFormatting of this note may be different from the original. Neurosurgery Consult History and Physical Note Admission Date: 12/29/2017 LOS: 0 days Reason for Consult: SAH Consult type: Opinion with orders Consulting Physician: Oumar Mercer MD Requesting Physician: Ana Harvey MD History of Present Illness: Yarely Dillon is a 72 y.o. right handed female with PMH of DM, HTN who presents in transfer from [facility] for management of SAH. The patient reports that she was showering at approximately 7:45pm 12/28 when she bent down to turn off the water and felt pain across her shoulders and at the base of her neck. She then had a syncopal episode and awoke on the floor of the tub after + LOC. She had also had some loose stool as well. She was able to get out of the shower and get across the bedroom before calling to her for help. Her called EMS around 8:15pm 12/28 and [facility] [place]. She was noted to have SAH on her CT head and was subsequently transferred to [facility] for further management. At this time the patient reports neck ache but otherwise no complaints. Denies headache, changes in vision, numbness, tingling, weakness of extremities. No personal or family history of cerebral aneurysms. Past Medical History: Past Medical History: Diagnosis Date DM (diabetes mellitus) (HCC) HTN (hypertension) Past Surgical History: Past Surgical History: Procedure Laterality Date HX TONSILLECTOMY Social History: Social History Substance Use Topics Smoking status: Not on file Smokeless tobacco: Not on file Alcohol use Not on file Family History: History reviewed. No pertinent family history. Allergies: Codeine and Penicillins Medications: AIRCRAFT LANDING GEAR INSPECTOR: No prescriptions prior to admission. Inpatient: Scheduled Meds: docusate (COLACE) capsule 100 mg 100 mg Oral BID insulin aspart (NOVOLOG FLEXPEN) injection PEN 0-14 Units 0-14 Units Subcutaneous ACHS levETIRAcetam in NaCl (iso-os) (KEPPRA) IVPB (premade) 500 mg 100 mL 500 mg Intravenous BID milk of magnesia (CONC) oral suspension 10 mL 10 mL Oral QDAY niMODipine (NYMALIZE) 3 mg/ mL solution 60 mg 60 mg Feeding Tube Q4H senna/docusate (SENOKOT-S) tablet 1 tablet 1 tablet Oral BID Continuous Infusions: sodium chloride 0.9 % infusion PRN and Respiratory Meds:acetaminophen Q4H PRN OR acetaminophen Q4H PRN, calcium gluconate IVPB PRN (Full Stack Python Developer from Rx) AND Ionized Calcium PRN AND* * Notify Physician Ongoing, fentaNYL citrate PF Q1H PRN, hydrALAZINE Q6H PRN, labetalol (NORMODYNE; TRANDATE) injection Q15 MIN PRN, magnesium sulfate PRN AND Magnesium PRN AND Notify Physician Ongoing, ondansetron (ZOFRAN) IV Q6H PRN, oxyCODONE Q4H PRN, potassium chloride SR PRN OR potassium chloride PRN, sodium phosphate IVPB PRN (Full Stack Python Developer from Rx) AND Phosphorus PRN AND* * Notify Physician Ongoing Review of Systems: Full 10 point review of systems negative except for HPI Physical Exam: Vital Signs: Last Filed in 24 hours Vital Signs: 24 hour Range BP: 153/108 (12/29 529) Temp: 36.6 C (97.9 F) (12/29 509) Pulse: 76 (12/29 529) Respirations: 25 PER MINUTE (12/29 529) SpO2: 97 % (12/29 529) O2 Delivery: None (Room Air) (12/29 529) SpO2 Pulse: 75 (12/29 529) BP: (149-153)/(73-108) Temp: [36.6 C (97.9 F)] Pulse: [76-80] Respirations: [11 PER MINUTE-25 PER MINUTE] SpO2: [95 %-97 %] O2 Delivery: None (Room Air) General appearance: No acute distress Lungs: Symmetric chest rise Heart: Warm and well perfused Gastrointestinal: Soft, non-tender Musculoskeletal: Tenderness over left hip Skin: Large ecchymosis over the left hip region Psychiatric: Normal affect Neurologic Exam: Mental Status: Awake, alert and oriented x 4, fluent speech Pupils: Pupils equal round and reactive to light, 4mm bilaterally Cranial Nerves: CN II-XII individually tested and found to be intact, gag not tested Motor: Full and equal strength throughout Normal muscle bulk and tone No pronator drift Sensation: Sensation intact to light touch throughout Deep Tendon Reflexes: Plantar responses toes downgoing bilaterally No clonus bilaterally Gait: Not tested due to patient factors Cerebellar: No dysmetria LabTests: Hematology: Lab Results Component Value Date HGB 11.1 12/29/2017 HCT 32.0 12/29/2017 PLTCT 137 12/29/2017 WBC 7.9 12/29/2017 NEUT 83 12/29/2017 ANC 6.60 12/29/2017 ALC 1.00 12/29/2017 MADDIE 4 12/29/2017 AMC 0.30 12/29/2017 ABC 0.00 12/29/2017 MCV 86.7 12/29/2017 MCHC 34.8 12/29/2017 MPV 6.8 12/29/2017 RDW 13.9 12/29/2017 General Chemistry: Lab Results Component Value Date NA 137 12/29/2017 K 4.6 12/29/2017 CL 108 12/29/2017 CO2 22 12/29/2017 BUN 18 12/29/2017 CR 0.83 12/29/2017 GLU 252 12/29/2017 OBSCA 1.15 12/29/2017 CA 8.8 12/29/2017 MG 1.5 12/29/2017 PO4 3.2 12/29/2017 General Chemistry: Lab Results Component Value Date GAP 7 12/29/2017 ALBUMIN 3.6 12/29/2017 LACTIC 1.7 12/29/2017 TOTBILI 0.4 12/29/2017 TOTPROT 6.1 12/29/2017 AST 15 12/29/2017 ALT 9 12/29/2017 ALKPHOS 40 12/29/2017 Radiology and other Diagnostics Review: CT head 12/28/17 from outside hospital reviewed demonstrating SAH throughout the basilar cisterns and into the right sylvian fissure. CTA head 12/29/17 reviewed demonstrating an apparent anterior communicating artery aneurysm. Assessment/Plan: Yarely Dillon is a 72 y.o. 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 HH1, mF3, WFNS 1 - CTA completed - IR for angio and potential treatment this AM - SBP < 140 until aneurysm treated - [facility] - D/w Dr. Ruslan Pate MD Please call [phone] with questions. ATTESTATION I personally performed the E/M including history, physical exam, and MDM. Grade 1 at present. 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 Will check angio to see if it can be treated interventionally, or would be better clipped. Spoke to patient. [facility] Staff name: Oumar Mercer MD Date: 12/29/2017 in this encounter Miscellaneous Notes Case Mgmt DC Marce - Fara Knott - 01/13/2018 9:34 AM CSTCase Management Progress Note NAME:Yarely Dillon :1944 AGE: 72 y.o. ADMISSION DATE: 12/29/2017 DAYS ADMITTED: LOS: 15 days Todays Date: 01/13/2018 Plan TURNER met with the neurosurgery team regarding d/c planning this morning. Pt is medically stable to d/c to [facility]; who are expecting pt today. Her nephew to transport her this morning in private vehicle. Interventions ? Support Pt has significant family support; her is also in the home and able to provide some support as well. ? Info or Referral ? Discharge Planning Pt to discharge to [facility] today at 9:30am by private vehicle. TURNER notified the RN and providerthat the IPR can accept. TURNER put together the packet , and faxed the orders to [facility]. [facility] p, ja [address] [place] [address] [place], [place] [address] ? Medication Needs ? Financial ? Legal ? Other Disposition ? Discharge Preparation When ready for discharge, who will be responsible for transporting?: facility vs family Type of Residence: Private residence Patient expects to be discharged to: Rehab facility Was the patient receiving home care services?: No ? Expected Discharge Expected Discharge Date: 01/13/18 ? Discharge Disposition Disposition: Inpatient Rehab Facility (IRF) Inpatient Rehab: [facility] ([phone]) ? Next Level Care Fara Knott LMSW *[id number] Case Mgmt DC Plan - Fara Knott - 01/12/2018 9:32 AM CSTCase Management Progress Note NAME:Yarely Dillon :1944 AGE: 72 y.o. ADMISSION DATE: 12/29/2017 DAYS ADMITTED: LOS: 14 days Todays Date: 01/12/2018 Plan TURNER met with the neurosurgery team regarding POC and d/c planning. Mrs. Dillon is ready to d/c today;however, the weather is dangerous and pt will wait until tomorrow to go to [facility], with her nephew's support. Delon plans to be at [facility] tomorrow at 9:30 to transport pt to [facility]. Interventions ? Support Pt's supportive, but is unable to provide a lot of physical support to her. Their nephew,Delon, is able to transport her to [facility], when it is safe. ? Info or Referral ? Discharge Planning Pt planning to go to [facility] tomorrow (due to weather delay). SW notified [facility] of the plan, and they are agreeable and grateful. [facility] p, zy [address] [place] [address] [place] [address] ? Medication Needs ? Financial ? Legal ? Other Disposition ? Discharge Preparation When ready for discharge, who will be responsible for transporting?: facility vs family Type of Residence: Private residence Patient expects to be discharged to: Rehab facility Was the patient receiving home care services?: No ? Expected Discharge Expected Discharge Date: 01/11/18 ? Discharge Disposition ? Next Level Care Fara Knott LMSW *[phone] Case Mgmt DC Plan - Fara Knott - 01/11/2018 1:49 PM CSTCase Management Progress Note NAME:Yarely Dillon :1944 AGE: 72 y.o. ADMISSION DATE: 12/29/2017 DAYS ADMITTED: LOS: 13 days Todays Date: 01/11/2018 Plan TURNER met with the neurosurgery team regarding POC and d/c planning. Mrs. Dillon is being recommended for IPR by therapies who saw her today. She agreed to call her nephews for a ride tomorrow, and [facility] is anticipating admission tomorrow (01/12/18) as well. Interventions ? Support Pt has significant family support in [place] (nephews and her ). TURNER unsure how much physical support her will be able to provide, but he can be available to her 15/06. ? Info or Referral ? Discharge Planning Ms. Dillon is agreeable to going to [facility] tomorrow; with he support of her nephew for transportation. She was contacting family after TURNER discussed the plan with her. TURNER talked with Rudi with [facility], who is optimistic about accepting pt ([phone]). [facility] p, fx [address] [place] [address] [place] [address] ? Medication Needs ? Financial ? Legal ? Other Disposition ? Discharge Preparation Type of Residence: Private residence Patient expects to be discharged to: Rehab facility Was the patient receiving home care services?: No ? Expected Discharge Expected Discharge Date: 01/11/18 ? Discharge Disposition ? Next Level Care Fara Knott LMSW *[phone] Case Mgmt DC Tracy De Souza - 01/11/2018 12:06 PM CSTRequest to Send Referral Received request from Fara Knott [facility] to send referral to the following facility: [facility] IPR - manual fax to [phone] Tracy Helms Global Program Manager For additional assistance please contact [facility] *[phone] Case Mgmt DC Plan Fara Rose - 01/11/2018 8:36 AM CSTCase Management Progress Note NAME:Yarely Dillon :1944 AGE: 72 y.o. ADMISSION DATE: 12/29/2017 DAYS ADMITTED: LOS: 13 days Todays Date: 01/11/2018 Plan TURNER anticipates that pt will be ready to transition to IPR setting today vs tomorrow. TURNER will need updated therapy notes to send to [facility] for pt. Interventions ? Support Pt's supportive and able to provide 24 hour supervision. ? Info or Referral ? Discharge Planning [facility] is preferred for pt's IPR setting. TURNER sent an initial referral last week. TURNER will need to send updates via fax d/t allscripts service down. Both PT and OT are recommending inpt for pt. SW will review with pt. TURNER called [facility], and they haven't received the referral for pt. TURNER requested that the referral be faxed over for pt. [facility] p, fx [address] [place] [address] [place] [address] ? Medication Needs ? Financial ? Legal ? Other Disposition ? Discharge Preparation Type of Residence: Private residence Patient expects to be discharged to: Rehab facility Was the patient receiving home care services?: No ? Expected Discharge Expected Discharge Date: 01/11/18 ? Discharge Disposition ? Next Level Care Fara Knott [facility] *[phone] Care Plan - Norma Sorenson RN - 01/09/2018 9:35 PM CSTProblem: Falls, High Risk of Goal: Absence of falls-Adult Patient Outcome: Goal Ongoing HFR bundle implemented this shift including yellow arm band/socks on pt, bed/ chair alarms in place at all times, gait belt and walker used when necessary, sign outside the door is present to inform staff of HFR status, and call light and belongings are kept within reach of pt. Pt educated on calling for nursing staff before attempting to get OOB Problem: Discharge Planning Goal: Participation in plan of care Outcome: Goal Ongoing POC and DC plan reviewed with pt, questions were asked and answered, and pt verbalized understanding Problem: Nutrition Deficit Goal: Adequate nutritional intake Outcome: Goal Ongoing pt on diabetic diet this shift eating majority of meals Problem: Glucose Management Goal: Absence of hyperglycemia Outcome: Goal Ongoing BS monitored this shift and treated with insulin to maintain adequate glucose Problem: Infection, Risk of, Surgical Site Infection Goal: Absence of surgical site infection Outcome: Goal Ongoing surgical site CDI Problem: Pain Goal: Management of pain Outcome: Goal Ongoing pain managed this shift with tylenol as well as patient positioning. pt was educated on pain medications available to her and she calls out appropriately for medications as needed. Problem: Skin Integrity Goal: Skin integrity intact Outcome: Goal Ongoing skin CDI other than documented wounds. pt repositioned q2hrs to help promote adequate skin integrity Case Mgmt DC Plan - Tracy Helms - 01/07/2018 4:28 PM CSTRequest to Send Referral Received request from Fara Knott [facility] to send referral to the following facility: [facility] [address] [place] [address] [place] [address] Tracy Helms Global Program Manager For additional assistance please contact [facility] *[phone] Case Mgmt DC Plan - Fara Knott - 01/07/2018 4:20 PM CSTCase Management Progress Note NAME:Yarely Dillon :1944 AGE: 72 y.o. ADMISSION DATE: 12/29/2017 DAYS ADMITTED: LOS: 9 days Todays Date: 01/07/2018 Plan SW met with the neurosurgery team regarding POC and d/c planning. Per therapy recommendation, pt is a rehabilitation candidate. Interventions ? Support TURNER contacted pt's Kyle ([phone] cell), who asked that SW first try for [facility] IPR. ? Info or Referral ? Discharge Planning SW requested that the [facility] please send a referral to [facility]. SW will follow up with the liaison tomorrow to discuss whether or not they can accept pt (bed availability and medical). ? Medication Needs ? Financial ? Legal ? Other Disposition ? Discharge Preparation Type of Residence: Private residence Patient expects to be discharged to: Rehab facility Was the patient receiving home care services?: No ? Expected Discharge Expected Discharge Date: 01/11/18 ? Discharge Disposition ? Next Level Care Fara Knott LMSW *[phone] [facility] DC Plan - Ashley Maloney RN - 01/05/2018 12:49 PM CSTCase Management Progress Note NAME:Yarely Dillon :1944 AGE: 72 y.o. ADMISSION DATE: 12/29/2017 DAYS ADMITTED: LOS: 7 days Todays Date: 01/05/2018 Plan Ongoing DC planning Interventions ? Support NCM met with Ms. Dillon and provided contact information and explanation of RNCM role. She was encouraged to contact case management with questions and concerns during hospitalization. Ms. Dillon's discharge plan is unclear at this time; however, therapy recommendations thus far are as follows: * FREIGHT SOLICITOR - Consistent supervision generally, and use of swallow strategies with PO * PT/OT - Home with Assistance v Inpatient Setting Patient states "I haven't really thought about" whether she might consider or need home health care or inpatient setting at discharge. No family in room at present to consider their point of view, and patient states she is very sleepy. NCM left business card, and will continue to follow as CM needs develop. Current KARUNA is ~ one week from today. ? Info or Referral ? Discharge Planning ? Medication Needs ? Financial ? Legal ? Other Disposition ? Discharge Preparation Type of Residence: Private residence Patient expects to be discharged to: Rehab facility Was the patient receiving home care services?: No ? Expected Discharge Expected Discharge Date: 01/12/18 ? Discharge Disposition ? Next Level Care SYED Fitzgerald, graphics programmer Nurse Anthropology Lecturer [phone] Med Student Progress Note - Montez Barba, - 01/05/2018 8:23 AM FOOD PRESERVATION SCIENTIST Formatting of this note may be different from the original. Neuro Critical Care Progress Note Yarely Dillon Admission Date: 12/29/2017 LOS: 7 days Full Code ASSESSMENT/PLAN Patient Active Problem List Diagnosis Date Noted Diabetes (HCC) 12/29/2017 Hypertension 12/29/2017 Subarachnoid hemorrhage (HCC) 12/29/2017 Yarely Dillon is a 72 y.o. female being managed in Neuro ICU s/p craniectomy and aneurysm repair on 12/29 after presenting at outside hospital with SAH 12/28. Her daily neuro exams have been improving. Continuing to monitor for cerebral vasospasm post SAH with daily TCDs, with one case of possible vasospasm last week. Currently has prophylaxis for vasospasm with nimodopine, and following other neurosurgical recommendations. Also, continuing to manage her baseline hypertension and diabetes, and PT/OT/FREIGHT SOLICITOR working on her rehab. Neuro: SAH due to aneurysm s/p craniectomy and aneurysm repair - vasospasm ppx with nimodipine - seizure ppx with keppra - normal sodium goal of >135 not met. On PO salts. Added fludrocortisone 0.1mg PO BID. Monitor. - sleep tx with melatonin QHS. Modafinil discontinued. Received risperidal x1 overnight. - daily TCDs have been unimpressive (latest LRs <3); continue daily as risk of vasospasm is between 5-10 days post SAH - had been requiring restraints, CO, and mitts for agitation and pulling at suture sites; continue CO and monitor need for restraints/mitts - Neurochecks Q2 hrs - Non-compliant with PT/OT who will revisit with her today. FREIGHT SOLICITOR said to continue to monitor her when she eats. - Continue SQ heparin - Neuro-ICU monitoring, parameters for Prevention of secondary brain injury( avoid hypotension, hypoxia, fever, hyperglycemia,significant anemia, diagnose and treatment of seizures, electrolyte abnormalities) Sedation/Pain Management: Required oxycodone x2 and tylenol x2 overnight - Continue with PRN oxycodone and tylenol - Assess for delirium daily Cardiac: HTN - Holding AIRCRAFT LANDING GEAR INSPECTOR spironolactone/HCTZ - Have been continuing AIRCRAFT LANDING GEAR INSPECTOR methyldopa; continue - Has PRN labetalol and hydralazine - SBP < 170 goal being met - SBP goal: < 170 due to vasospasm ppx - MAP goal > 65 Respiratory: No acute issues; SpO2 goal being met GI: - Feeding: PO intake has been progressing. FREIGHT SOLICITOR says to monitor her eating for aspiration. - Has had daily BM, with some being loose; moitor for increased frequency or change in quality - neurosurgery bowel regimen, ensure daily BM Heme: Anemia - Hb 8.4 decreased from 8.7. However she has had similar Hb throughout her stay. Continue to monitor. - assess for coagulopathy, maintain platelets above 100k, INR <1.5 ID: - Afebrile. No leukocytosis. - aim for normothermia, Temp <38.3 celsius, normothermia protocol if febrile Renal: - I/O balance +380 over 24 hrs - Aim for normovolemia - BUN 19, Cr 0/78 - Velázquez out since 12/30 and voiding normally Endocrine: - DM; Blood glucose goal 100-180mg/dl - Goal not being met with HDCF alone; add 10U lantus qAM and montior - Holding AIRCRAFT LANDING GEAR INSPECTOR oral hypoglycemics - Diabetic diet FEN: - IVF: none - Diabetic diet with calorie counts discontinued as she is eating full meals. Diet said to ensure she gets supplemental drinks. See stump shooter note. - Magnesium goal >2.0, i-Dennis goal > 1.0, Potassium goal >4.0 mEq/L, being met Skin/MSK: No acute issues Monitor for skin changes Prophylaxis Review: A)GI: Bowel regimen B) Lines: peripheral line C) Urinary Catheter: No D) Antibiotic Usage: No E) VTE: SQ heparin and SCDs F) Isolation: No G)Seizures: Keppra I) Restraints: Patient assessed for need for restraints. Currently on CO and not requiring mitts/restraints as before. Disposition/Family: Neuro ICU Primary service: NCC Consults: Neurosurgery SUBJECTIVE Yarely Dillon is a 72 y.o. female. No acute overnight events. Pain well controlled. Slept better with one dose of risperidone overnight. She reports having BM overnight and no abdominal pain. [place]. OBJECTIVE Vital Signs: Last Filed Vital Signs: 24 Hour Range BP: 154/49 (01/05 700) Temp: 36.8 C (98.3 F) (01/05 0400) Pulse: 57 (01/05 700) Respirations: 22 PER MINUTE (01/05 700) SpO2: 98 % (01/05 700) O2 Delivery: None (Room Air) (01/05 700) BP: (118-174)/(31-79) Temp: [36.4 C (97.6 F)-37 C (98.6 F)] Pulse: [50-74] Respirations: [0 PER MINUTE-30 PER MINUTE] SpO2: [95 %-100 %] O2 Delivery: None (Room Air) Intensity Pain Scale 0-10 (Pain 1): (not recorded) Vitals: 12/29/17 1800 12/30/17 1500 01/04/18 0800 Weight: 99.8 kg (220 lb 0.3 oz) 99.8 kg (220 lb 0.3 oz) 102.8 kg (226 lb 10.1 oz ) Artificial airway: None Ventilator/ Respiratory Therapy: No Vent weaning trial: Not applicable Lines: Peripheral Line Drains: None Intake/Output Summary: (Last 24 hours) Intake/Output Summary (Last 24 hours) at 01/05/18 0823 Last data filed at 01/05/18 0645 Gross per 24 hour Intake 1230 ml Output 850 ml Net 380 ml Stool Occurrence: 1 Physical Exam: Blood pressure 154/49, pulse 57, temperature 36.8 C (98.3 F), height 165.1 cm (65"), weight 102.8 kg (226 lb 10.1 oz), SpO2 98 %. [place] coma score: E: 3 - Opens eyes to loud noise or command M: 6 - Follows simple motor commands V: 5 - Alert and oriented Neuro: Mental Status: Alert. Oriented to person, place, time, situation Cranial Nerves: Cranial nerves 2-12 INTACT. - Pupil exam: Size: 3mm/bl Reactivity: brisk - EOM: intact Motor: RUE: Strength: 4/5; RLE: Strength: 4/5; LUE: Strength: 4/5 LLE: Strength: 4/5; Follows commands to wiggle toes, lift arms and legs, squeeze my fingers with her hands Sensory: normal Coordination: No pronator drift DTRs: Not tested Gait: Not tested Lungs: clear to auscultation bilaterally Pulmonary: Pulmonary normal breathing effort Heart: regular rate and rhythm, S1, S2 normal, no murmur, click, rub or gallop Abdomen: soft, non-tender. Bowel sounds normal. No masses, no organomegaly Extremities: extremities normal, atraumatic, no cyanosis, +1 non-pitting edema of b/l lower extremities to mid calves Skin: Skin color, texture, turgor normal. No rashes or lesions Point of Care Testing: (Last 24 hours) Glucose: (!) 149 (01/05/18 3042) POC Glucose (Download): (!) 160 (01/05/18 0596) Lab Review: Pertinent labs reviewed Radiology and Other Diagnostic Procedures Review: Pertinent radiologic and diagnostic procedures reviewed. Discussed patient care and plan with Dr. Chua and PRODUCTION SAMPLER Brown Barba, MS Date: 01/05/2018 Med Student Progress Note - Jameson Montez, MS - 01/04/2018 10:00 AM FOOD PRESERVATION SCIENTIST Formatting of this note may be different from the original. Neuro Critical Care Progress Note Yarely Dillon Admission Date: 12/29/2017 LOS: 6 days Full Code ASSESSMENT/PLAN Patient Active Problem List Diagnosis Date Noted Diabetes (HCC) 12/29/2017 Hypertension 12/29/2017 Subarachnoid hemorrhage (HCC) 12/29/2017 Yarely Dillon is a 72 y.o. female being managed in Neuro ICU s/p craniectomy and aneurysm repair on 12/29 after presenting at outside hospital with SAH 12/28. Her daily neuro exams have been improving. Continuing to monitor for cerebral vasospasm post SAH with daily TCDs, with one case of possible vasospasm last week. Currently has prophylaxis for vasospasm with nimodopine, and following other neurosurgical recommendations. Also, continuing to manage her baseline hypertension and diabetes, and PT/OT/FREIGHT SOLICITOR working on her rehab. Neuro: SAH due to aneurysm s/p craniectomy and aneurysm repair - vasospasm ppx with nimodipine - seizure ppx with keppra - normal sodium goal being met - sleep tx with modafinil QD and melatonin QHS - daily TCDs have been unimpressive; continue daily as risk of vasospasm is between 5-10 days postSAH - had been requiring restraints, CO, and mitts for agitation and pulling at suture sites; this improved overnight and she didn't require any except for CO; continue CO and monitor need for restraints/mitts - Neurochecks Q2 hrs now - continue PT/OT/FREIGHT SOLICITOR rehab and evals - Continue SQ heparin - Neuro-ICU monitoring, parameters for Prevention of secondary brain injury( avoid hypotension, hypoxia, fever, hyperglycemia,significant anemia, diagnose and treatment of seizures, electrolyte abnormalities) Sedation/Pain Management: One complaint of pain overnight requiring oxycodone x1 - Continue with PRN oxycodone and tyleno - Assess for delirium daily Cardiac: HTN - Holding AIRCRAFT LANDING GEAR INSPECTOR spironolactone/HCTZ - Have been continuing AIRCRAFT LANDING GEAR INSPECTOR methyldopa; continue - Has PRN labetalol and hydralazine - SBP goal being met - SBP goal: < 170 due to vasospasm ppx - MAP goal > 65 Respiratory: No acute issues; SpO2 goal being met GI: - Feeding: PO intake has been progressing - Has had daily BM - neurosurgery bowel regimen, ensure daily BM Heme: Anemia - Hb 8.7 decreased from 10.5. However she has had similar Hb throughout her stay. Continue to monitor. - assess for coagulopathy, maintain platelets above 100k, INR <1.5 ID: - Afebrile. No leukocytosis. - aim for normothermia, Temp <38.3 celsius, normothermia protocol if febrile Renal: - I/O balance +1200 over 24 hrs - Aim for normovolemia - BUN normalized to 23 from 31 yesterday - Velázquez out since 12/30 and voiding normally Endocrine: - DM; Blood glucose goal 100-180mg/dl - Goal being met with HDCF. Just one POC glucose reading of 206. - Holding AIRCRAFT LANDING GEAR INSPECTOR oral hypoglycemics FEN: - IVF: Discontinued LR infusion today - Diabetic diet with calorie counts - Magnesium goal >2.0, i-Dennis goal > 1.0, Potassium goal >4.0 mEq/L, being met Skin/MSK: No acute issues Monitor for skin changes Prophylaxis Review: A)GI: Bowel regimen B) Lines: peripheral line C) Urinary Catheter: No D) Antibiotic Usage: No E) VTE: SQ heparin and SCDs F) Isolation: No G)Seizures: Keppra I) Restraints: Patient assessed for need for restraints. Currently on CO and not requiring mitts/restraints as before. Disposition/Family: Neuro ICU Primary service: NCC Consults: Neurosurgery SUBJECTIVE Yarely Dillon is a 72 y.o. female. Overnight Events: Significant event: Nurse trialed her without restraints or mitts. She did well throughout the night. . Patient continues to be sleepy and lethargic. She reports having BM overnight and no abdominal pain. OBJECTIVE Vital Signs: Last Filed Vital Signs: 24 Hour Range BP: 163/58 (01/04 1000) Temp: 37.3 C (99.1 F) (01/04 0800) Pulse: 58 (01/04 1000) Respirations: 19 PER MINUTE (01/04 1000) SpO2: 99 % (01/04 1000) O2 Delivery: None (Room Air) (01/04 1000) Weight: 102.8 kg (226 lb 10.1 oz) (01/04 0800) BP: (128-174)/(40-101) Temp: [36.8 C (98.2 F)-37.3 C (99.1 F)] Pulse: [57-81] Respirations: [13 PER MINUTE-30 PER MINUTE] SpO2: [95 %-100 %] O2 Delivery: None (Room Air) Intensity Pain Scale 0-10 (Pain 1): (not recorded) Vitals: 12/29/17 1800 12/30/17 1500 01/04/18 0800 Weight: 99.8 kg (220 lb 0.3 oz) 99.8 kg (220 lb 0.3 oz) 102.8 kg (226 lb 10.1 oz ) Artificial airway: None Ventilator/ Respiratory Therapy: No Vent weaning trial: Not applicable Lines: Peripheral Line Drains: None Intake/Output Summary: (Last 24 hours) Intake/Output Summary (Last 24 hours) at 01/04/18 1043 Last data filed at 01/04/18 0900 Gross per 24 hour Intake 2020 ml Output 750 ml Net 1270 ml Stool Occurrence: 1 Physical Exam: Blood pressure 163/58, pulse 58, temperature 37.3 C (99.1 F), height 165.1 cm (65"), weight 102.8 kg (226 lb 10.1 oz), SpO2 99 %. [place] coma score: E: 3 - Opens eyes to loud noise or command M: 6 - Follows simple motor commands V: 5 - Alert and oriented Neuro: Mental Status: Alert. Oriented to person, place, time, situation ("I fell"). Cranial Nerves: Cranial nerves 2-12 INTACT. - Pupil exam: Size: 3mm/bl Reactivity: brisk - EOM: intact Motor: RUE: Strength: 4/5; RLE: Strength: 4/5; LUE: Strength: 4/5 LLE: Strength: 4/5; Follows commands to wiggle toes, lift arms and legs, squeeze my fingers with her hands Sensory: normal Coordination: No tested DTRs: Not tested Gait: Not tested Lungs: clear to auscultation bilaterally Pulmonary: Pulmonary normal breathing effort Heart: regular rate and rhythm, S1, S2 normal, no murmur, click, rub or gallop Abdomen: soft, non-tender. Bowel sounds normal. No masses, no organomegaly Extremities: extremities normal, atraumatic, no cyanosis, +1 non-pitting edema of b/l lower extremities to mid calves Skin: Skin color, texture, turgor normal. No rashes or lesions Point of Care Testing: (Last 24 hours) Glucose: (!) 157 (01/04/18 0345) POC Glucose (Download): (!) 153 (01/04/18 0626) Lab Review: Pertinent labs reviewed Radiology and Other Diagnostic Procedures Review: Pertinent radiologic and diagnostic procedures reviewed. Discussed patient care and plan with Dr. Chua and MURIEL Barba MS Date: 01/04/2018 Procedures (Immed Post or Bedside) - Mariah Rockwell APRN-MURIEL - 01/03/2018 5:19 AM CSTFormatting of this note may be different from the original. Neuro Critical Care Transcranial Doppler Ultrasound Report Yarely Dillon [id number] 72 y.o. female Diagnosis: SAH Indication for TCD: Evaluation for cerebral vasospasm Blood pressure (!) 157/106, pulse 76, temperature 37.2 C (99 F), height 165.1 cm (65"), weight 99.8 kg (220 lb 0.3 oz), SpO2 99 %. Hgb: 8.8 gm/dl Intake/Output Summary (Last 24 hours) at 01/03/18 0520 Last data filed at 01/03/18 0500 Gross per 24 hour Intake 1858 ml Output 1150 ml Net 708 ml Solis and Erickson: 1 Modified Choudhary: 3 Observations: The following denote maximal velocities recorded for that vessel territory Procedure and Results: A complete transcranial doppler ultrasound examination was performed. This exam was limited due to patient agitation and motion. Reference Values Lindegaard Ratio Pulsatility Ratio <3: Probability of vasospasm - <15% <0.5: Below normal 3 - 4.5: Probability of vasospasm - 50-75% 0.5 - 1.2: Normal >4.5: Probability of vasospasm - >95% 1.2 - 1.5: Above normal >1.5: Abnormal ATTESTATION I have personally performed the procedure. Procedure time: 20 minutes Results communicated to the neurosurgical team Staff name: Mariah Rockwell APRN-MURIEL Date: 01/03/2018 Associated attestation - Ana Harvey MD - 01/03/2018 11:06 AM CSTFormatting of this note may be different from the original. ATTESTATION: No evidence of vasospasm on this study. I have interpreted the results. Staff name: Ana Harvey MD Date: 01/03/2018 Procedures (Immed Post or Bedside) - Nereida Garner APRN - 01/01/2018 6: 35 AM CSTFormatting of this note may be different from the original. Neuro Critical Care Transcranial Doppler Ultrasound Report Yarely Dillon [id number] 72 y.o. female Diagnosis: SAH Indication for TCD: Evaluation for cerebral vasospasm Blood pressure 110/53, pulse 90, temperature 37.1 C (98.8 F), height 165.1 cm (65"), weight 99.8kg (220 lb 0.3 oz), SpO2 96 %. Hgb: 9.6gm/dl Intake/Output Summary (Last 24 hours) at 01/01/18 0635 Last data filed at 01/01/18 0600 Gross per 24 hour Intake 730 ml Output 1040 ml Net -310 ml Solis and Erickson: 1 Modified Choudhary: 3 Observations: The following denote maximal velocities recorded for that vessel territory Procedure and Results: A complete transcranial doppler ultrasound examination was attempted, study limited due to patient agitation and motion. Interpretation: Reference Values Lindegaard Ratio Pulsatility Ratio <3: Probability of vasospasm - <15% <0.5: Below normal 3 - 4.5: Probability of vasospasm - 50-75% 0.5 - 1.2: Normal >4.5: Probability of vasospasm - >95% 1.2 - 1.5: Above normal >1.5: Abnormal ATTESTATION I have personally performed the procedure. Procedure time: 30 minutes Results communicated to the neurosurgical team Staff name: Nereida Garner APRN Date: 01/01/2018 Associated attestation - Ana Harvey MD - 01/02/2018 12:55 PM CSTFormatting of this note may be different from the original. ATTESTATION: No evidence of vasospasm on this study. I have interpreted the results. Staff name: Ana Harvey MD Date: 01/02/2018 Procedures (Immed Post or Bedside) - Jazzy Dasilva APRN - 12/31/2017 11:37 AM CSTFormatting of this note may be different from the original. Neuro Critical Care Transcranial Doppler Ultrasound Report Yarely Dillon [id number] 72 y.o. female Diagnosis: SAH Indication for TCD: Evaluation for cerebral vasospasm Blood pressure (!) 113/95, pulse 70, temperature 37.2 C (99 F), height 165.1 cm (65"), weight 99.8 kg (220 lb 0.3 oz), SpO2 97 %. Hgb: 10.1gm/dl Intake/Output Summary (Last 24 hours) at 12/31/17 1139 Last data filed at 12/31/17 0900 Gross per 24 hour Intake 1340 ml Output 1480 ml Net -140 ml Solis and Erickson: 1 Modified Choudhary: 3 Observations: The following denote maximal velocities recorded for that vessel territory Procedure and Results: A transcranial doppler ultrasound examination was performed on the left to complete the procedure from with AM after dressing was removed. Interpretation: Reference Values Lindegaard Ratio Pulsatility Ratio <3: Probability of vasospasm - <15% <0.5: Below normal 3 - 4.5: Probability of vasospasm - 50-75% 0.5 - 1.2: Normal >4.5: Probability of vasospasm - >95% 1.2 - 1.5: Above normal >1.5: Abnormal ATTESTATION I have personally performed the procedure. Procedure time: 20 minutes Results communicated to the neurosurgical team Staff name: Jazzy Dasilva APRN Date: 12/31/2017 Associated attestation - Ana Harvey MD - 12/31/2017 2:09 PM CSTFormatting of this note may be different from the original. ATTESTATION: No evidence of vasospasm on the left side on this study. Earlier study from today shows right vasculature. I have interpreted the results. Staff name: Ana Harvey MD Date: 12/31/2017 Care Plan - Yasmeen Schmidt RN - 12/31/2017 11:16 AM CSTProblem: Injury - Risk of, Physical Restraints Goal: Absence of injury while physically restrained Outcome: Goal Achieved Date Met: 12/31/17 Restraints removed Procedures (Immed Post or Bedside) - Nereida Garner APRN - 12/31/2017 6: 22 AM CSTFormatting of this note may be different from the original. Neuro Critical Care Transcranial Doppler Ultrasound Report Yarely Dillon [id number] 72 y.o. female Diagnosis: SAH Indication for TCD: Evaluation for cerebral vasospasm Blood pressure (!) 134/112, pulse 71, temperature 36.8 C (98.2 F), height 165.1 cm (65"), tfjhjy15.8 kg (220 lb 0.3 oz), SpO2 96 %. Hgb: 10.1 gm/dl Intake/Output Summary (Last 24 hours) at 12/31/17 0622 Last data filed at 12/31/17 0515 Gross per 24 hour Intake 1653 ml Output 1400 ml Net 253 ml Solis and Erickson: 1 Modified Choudhary: 3 Observations: The following denote maximal velocities recorded for that vessel territory Procedure and Results: A PARTIAL, RIGHT SIDED transcranial doppler ultrasound examination was performed. Left side was attempted, but windows were obscured by dressing. Interpretation: Reference Values Lindegaard Ratio Pulsatility Ratio <3: Probability of vasospasm - <15% <0.5: Below normal 3 - 4.5: Probability of vasospasm - 50-75% 0.5 - 1.2: Normal >4.5: Probability of vasospasm - >95% 1.2 - 1.5: Above normal >1.5: Abnormal ATTESTATION I have personally performed the procedure. Procedure time: 15 minutes Results communicated to the neurosurgical team Staff name: Nereida Garner APRN Date: 12/31/2017 Associated attestation - Ana Harvey MD - 12/31/2017 11:29 AM CSTFormatting of this note may be different from the original. ATTESTATION: No evidence of vasospasm on the right on this study. I have interpreted the results. Staff name: Ana Harvey MD Date: 12/31/2017 Procedures (Immed Post or Bedside) - Jazzy Dasilva, ANIMAL SHELTER WORKER - 12/30/2017 11:36 AM CSTFormatting of this note may be different from the original. Neuro Critical Care Transcranial Doppler Ultrasound Report Yarely Dillon [id number] 72 y.o. female Diagnosis: SAH Indication for TCD: Evaluation for cerebral vasospasm Blood pressure (!) 134/39, pulse 85, temperature 36.9 C (98.4 F), weight 99.8 kg (220 lb 0.3 oz), SpO2 97 %. Hgb: 9.9gm/dl Intake/Output Summary (Last 24 hours) at 12/30/17 1136 Last data filed at 12/30/17 0800 Gross per 24 hour Intake 3406.7 ml Output 2300 ml Net 1106.7 ml Solis and Erickson: 1 Modified Choudhary: 3 Observations: The following denote maximal velocities recorded for that vessel territory Procedure and Results: A complete transcranial doppler ultrasound examination was attempted. Unable to complete left side due to surgical dressing in place. Interpretation: Reference Values Lindegaard Ratio Pulsatility Ratio <3: Probability of vasospasm - <15% <0.5: Below normal 3 - 4.5: Probability of vasospasm - 50-75% 0.5 - 1.2: Normal >4.5: Probability of vasospasm - >95% 1.2 - 1.5: Above normal >1.5: Abnormal ATTESTATION I have personally performed the procedure. Procedure time: 15 minutes Results communicated to the neurosurgical team Staff name: Jazzy Dasilva, SUSSY Date: 12/30/2017 Associated attestation - Ana Harvey MD - 12/30/2017 1:02 PM CSTFormatting of this note may be different from the original. ATTESTATION: No evidence of vasospasm on this study on the right. Left side was unable to be obtained due to surgical dressing. I have interpreted the results. Staff name: Ana Harvey MD Date: 12/30/2017 Anesthesia Post Op Day 1 - Haven Bynum SRNA - 12/30/2017 8:24 AM FOOD PRESERVATION SCIENTIST Formatting of this note may be different from the original. Anesthesia Follow-Up Evaluation: Post-Procedure Day One Name: Yarely Dillon : 1945 Age: 72 y.o. Sex: female Procedure Date: 12/29/2017 Procedure: Procedure(s): REPAIR ANEURYSM CRANIOTOMY Physical Assessment Weight: 99.8 kg (220 lb 0.3 oz) Vital Signs (Last Filed in 24 hours) BP: 126/54 (12/30 699) Temp: 37 C (98.6 F) (12/30 0400) Pulse: 68 (12/30 699) Respirations: 16 PER MINUTE (12/30 699) SpO2: 92 % (12/30 699) O2 Delivery: None (Room Air) (12/30 699) SpO2 Pulse: 88 (12/30 699) Patient History Allergies Allergies Allergen Reactions Codeine UNKNOWN Penicillins UNKNOWN Medications Scheduled Meds: ceFAZolin (ANCEF) IVP 1 g 1 g Intravenous Q8H* docusate (COLACE) capsule 100 mg 100 mg Oral BID levETIRAcetam (KEPPRA) tablet 500 mg 500 mg Oral BID milk of magnesia (CONC) oral suspension 10 mL 10 mL Oral QDAY niMODipine (NIMOTOP) capsule 60 mg 60 mg Oral Q4H senna/docusate (SENOKOT-S) tablet 1 tablet 1 tablet Oral BID Continuous Infusions: insulin regular (NOVOLIN R) 100 Units in sodium chloride 0.9% (NS) 100 mL IV drip (std conc) 1.5Units/hr (12/30/17726) niCARdipine (cardENE) 20 mg/NS 200 mL infusion (std conc)(premade) Stopped (12/29/17933) sodium chloride 0.9 % infusion 250 mL (12/30/1754) PRN and Respiratory Meds:acetaminophen Q4H PRN OR acetaminophen Q4H PRN, calcium gluconate IVPB PRN (Full Stack Python Developer from Rx) AND Ionized Calcium PRN AND* * Notify Physician Ongoing, fentaNYL citrate PF Q1H PRN, hydrALAZINE Q6H PRN, labetalol (NORMODYNE; TRANDATE) injection Q15 MIN PRN, magnesium sulfate PRN AND Magnesium PRN AND Notify Physician Ongoing, ondansetron (ZOFRAN) IV Q6H PRN, oxyCODONE Q4H PRN, potassium chloride SR PRN OR potassium chloride PRN, sodium phosphate IVPB PRN (Full Stack Python Developer from Rx) AND Phosphorus PRN AND* * Notify Physician Ongoing Diagnostic Tests Hematology: Lab Results Component Value Date HGB 9.9 12/30/2017 HCT 29.8 12/30/2017 PLTCT 146 12/30/2017 WBC 12.4 12/30/2017 NEUT 86 12/30/2017 ANC 10.70 12/30/2017 ALC 1.00 12/30/2017 MADDIE 6 12/30/2017 AMC 0.70 12/30/2017 EOSA 0 12/30/2017 ABC 0.00 12/30/2017 MCV 90.6 12/30/2017 MCH 30.0 12/30/2017 MCHC 33.1 12/30/2017 MPV 7.0 12/30/2017 RDW 14.1 12/30/2017 General Chemistry: Lab Results Component Value Date NA 141 12/30/2017 K 3.7 12/30/2017 CL 116 12/30/2017 CO2 16 12/30/2017 GAP 9 12/30/2017 BUN 14 12/30/2017 CR 0.92 12/30/2017 GLU 112 12/30/2017 CA 7.7 12/30/2017 ALBUMIN 3.6 12/29/2017 LACTIC 1.7 12/29/2017 OBSCA 1.15 12/30/2017 MG 1.5 12/30/2017 TOTBILI 0.4 12/29/2017 PO4 2.9 12/30/2017 Coagulation: Lab Results Component Value Date PTT 24.8 12/29/2017 INR 1.1 12/29/2017 Follow-Up Assessment Patient location during evaluation: ICU Anesthetic Complications: Anesthetic complications: The patient did not experience any anesthestic complications. Pain: Score: 2 Management:adequate Level of Consciousness: awake and alert and confused (Pt confused, spoke with nephew at bedside. He stated no PONV or issued in the post op period.) Hydration:acceptable Airway Patency: patent Respiratory Status: acceptable and unassisted Cardiovascular Status:acceptable and hemodynamically stable Regional/Neuroaxial: Procedures (Immed Post or Bedside) - Denzel Mi MD - 12/29/2017 4:00 PM FOOD PRESERVATION SCIENTIST Brief Operative Note Name: Yarely Dillon is a 72 y.o. female : 1945 DATE OF OPERATION: 12/29/2017 Date: 12/29/2017 Preoperative Dx: Subarachnoid hemorrhage (HCC) [I60.9] Post-op Diagnosis * Subarachnoid hemorrhage (HCC) [I60.9] Procedure(s) (LRB): REPAIR ANEURYSM CRANIOTOMY (Left) Anesthesia Type: Defer to Anesthesia Surgeon(s) and Role: * Denzel Mi MD - Resident - Assisting * Alma Barraza MD - Resident - Assisting * Tiffanie Louie MD - Resident - Assisting * Oumar Mercre MD - Primary Findings: ACOMM aneurysm with good occlusion. Patent parent and passing vessels. Estimated Blood Loss: 150 cc Specimen(s) Removed/Disposition: None Complications: None Implants: KLS Kamron, Lyoplant Drains: None Disposition: ICU - stable Denzel Mi MD Pager [phone] Associated attestation - Oumar Mercer MD - 01/11/2018 7:55 AM CSTFormatting of this note may be different from the original. ATTESTATION I performed this procedure with a resident. [facility] Staff name: Oumar Mercer MD Date: 01/11/2018 Case Mgmt DC Plan - Trina Salgado RN - 12/29/2017 12:38 PM CSTFormatting of this note may be different from the original. Case Management Admission Assessment NAME:Yarely Dillon :1944 AGE: 72y.o. ADMISSION DATE: 12/29/2017 DAYS ADMITTED: LOS: 0 days Todays Date: 12/29/2017 Source of Information: Tracy Gomez Min [address] [place] [address] Problem 72 yo with PMH of DM, HTN who presents in transfer from [facility] for management of SAH.The patient reports that she was showering at approximately 7:45pm 2/5 when she bent down to turn off the water and felt pain across her shoulders and at the base of her neck. She then had a syncopal episode and awoke on the floor of the tub after + LOC. Plan Plan: CM Assessment, Assist PRN with SW/NCM Services, Discharge Planning for Home Anticipated IR today for cerebral angiogram with possible intervention Emergency Contact Extended Emergency Contact Information Primary Emergency Contact: Kyle Dillon Address: [address] [place] [address] [facility] Mobile Relation: Spouse Preferred language: ECUADOREAN DPOA Transportation Does the patient need discharge transport arranged?: No Transportation Name, Phone and Availability #1: Patricia Min [phone] ( nephew ) Expected Discharge Expected Discharge Date: 12/30/17 Living Situation Prior to Admission ? Living Arrangements Type of Residence: Home, independent (two entry steps into house from garage; bedroom and bathroom on main level) Living Arrangements: Spouse/significant other (lives with Kyle who is 81 yo but in good health) Bathroom Shower / Tub: (unknown at this time) Bathroom Toilet: Standard Can patient live on one level if needed?: Yes Support Systems: Spouse/Partner, Other family (, nephew in town and his who is a doctor;patient's son Kyle lives one hour away but they do not have a good relationship) Assistance Needed: No Home Care Services: No ? 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 Cognitive Abilities Cognitive Abilities: Continue to Assess (patient was not in room during assessment, however, notes indicate she is completely alert and oriented) Financial Resources ? Coverage Primary Insurance: Medicare (A&B) Secondary Insurance: (unknown at this time) Additional Coverage: (unknown) ? Source of Income Source Of Income: Other penitentiary income ? Financial Assistance Needed? No Current/Previous Services ? PCP Pastor Fatima ? DME DME at home: None ? Home Health Receiving home health: No ? HD or PD Undergoing hemodialysis or peritoneal dialysis: No ? Tube/Enteral Feeds Receive tube/enteral feeds: No ? Infusion Receive infusions: No ? Private Duty Private duty help used: No ? HCBS Home and community based services: No ? Olivier White Olivier White: N/A ? Hospice Hospice: No ? Outpatient Therapy PT: No OT: No FREIGHT SOLICITOR: No ? SNF/NH SNF: No NH: No ? IPR IPR: No ? LTACH LTACH: No ? Acute Hospital Stay Acute Hospital Stay: (nephew does not think so but not entirely 100% sure) Psychosocial Needs ? Mental Health Mental Health History: No (nephew denies) ? Substance History History Smoking Status Not on file Smokeless Tobacco Not on file History Alcohol use Not on file History Drug use: Unknown ? Abuse/Sexual Assault Trina LYNCH, RN, ACM Integrated Nurse Anthropology Lecturer Neurology Service Pager: [phone] Operative Report (Direct Entry) - Camarata, Oumar J, MD - 12/29/2017 12:09 PM FOOD PRESERVATION SCIENTIST Formatting of this note may be different from the original. NEUROSURGERY OPERATIVE REPORT [facility] [address] [place], [place] [address] PATIENT NAME: Yarely Dillon MR#/PT#: [id number] DATE OF OPERATION: 12/29/17 SURGEON: Oumar Mercer MD CO-SURGEON: None WEB PUBLISHER(S): MD Tiffanie Viveros MD Paige Lundy, MD PREOPERATIVE DIAGNOSIS: 1. Subarachnoid hemorrhage (HCC) [I60.9], ACOMM aneurysm POSTOPERATIVE DIAGNOSIS: Same. OPERATIVE PROCEDURE: 1. Left pterional craniotomy for clipping of AComm aneurysm 2. Use of microscope for microdissection ANESTHESIA: General INDICATIONS FOR OPERATIVE PROCEDURE: Please see full dictated H and P. Briefly, Yarely Dillon is a 72 y.o. right handed female with PMH of DM, HTN who presents in transfer from [facility] for management of SAH. The patient reports that she was showering at approximately 7:45pm 2 whenshe bent down to turn off the water and felt pain across her shoulders and at the base of her neck. She then had a syncopal episode and awoke on the floor of the tub after + LOC. She had also had some loose stool as well. She was able to get out of the shower and get across the bedroom before calling to her for help. Her called EMS around 8:15pm 25 and she was [facility] [place] [facility] [place]. She was noted to have SAH on her CT head and was subsequently transferred to [facility] for further management. At this time the patient reports neck ache but otherwise no complaints. Denies headache, changes in vision, numbness, tingling, weakness of extremities. No personal or family history of cerebral aneurysms. DESCRIPTION AND FINDINGS OF OPERATIVE PROCEDURE: Findings: Consistent with preoperative diagnosis.Adequate occlusion of aneurysm with good filling of parent and passing vessels. Description: After obtaining informed consent, the patient was wheeled to the operating room theater where general tracheal anesthesia was induced. The patient was placed supine on the operating table with all pressure points appropriately padded. Patient's head was placed in the [address] cranialtongs secured to the table with the bed attachment, with head and neck extended and head turned slightly towards the right side approximately 15-30. Preliminary prep was done with clippers, chlorhexidine, and alcohol. A skin marker was used to alpesh a curvilinear pterional incision and formal prep was done with DuraPrep, blue towels, Ioban, and universal drape. 1% lidocaine with epinephrine was injected inside of planned incision. Using a #10 blade scalpel incision was fashioned followed by monopolar cautery forhemostasis. Monopolar cautery was used for incision of the temporalis fascia muscle muscle was reflected anteriorly. The entire myocutaneous flap was reflected for exposure of the zygomatic processin the frontal bone as well as the root of the zygoma and temporal region. Self-retaining retraction was applied. High-speed drill was used to fashion darci holes, one inferior in the temporal region one at the keyhole and one posterior superior. A Jose dissector was used to dissect the dura from underneath thebone, and a craniotome was used to connect the burrholes for a craniotomy flap. The flap was elevated with a 3 Alston. Further drilling was done of the frontal bone inner table, sphenoid region including contouring the orbit as well as taking down the sphenoid wing, and additional temporal bone. Hemostasis was obtained with bipolar cautery and Palma foam. Combination of 15 blade scalpel as well as bipolar cautery and micro instruments were used to open the dura and flapped anteriorly with 4-0Nurolon sutures. The microscope was then brought in for microdissection. Under the microscope the sylvian fissure was then split beginning distal and proceeding proximal along the frontal side. Identification of major MCA branches was done and followed proximally. The arachnoidal dissection then proceeded proximal and anterior along frontal lobe the frontal and temporal lobe. The cistern above the optic nerve was identified and opened and further arachnoidaldissection was done anterior and posterior to the left optic nerve. Additional identification alongthe carotid was done for the bifurcation of the MCA and JOSE. Proximal ICA was identified and dissected to allow for application of a temporary clip. Self-retaining retraction was applied to the gyrusrectus in the left side was resected for identification of further JOSE anatomy including a com and A2. The left A2 and aneurysm neck were identified and further dissection was done to identify the right A1 and A2 which was visualized behind the acom. Once all anatomy was identified a temporary clipwas applied to the left A1 and a 12 mm straight permanent clip was selected and placed at the base of the aneurysm. The aneurysm noted to be much less tense at this time and identification of both A1 and A2 vessels were done for patency. IC green was then utilized to demonstrate patency of A1 in both A 2's as well as micro-Doppler. Hemostasis obtained with bipolar cautery and Surgicel. Dura was closed with a 4- 0 Nurolon suture inferiorly and Lyoplant and dry Gelfoam were placed over top the dural closure. The bone was or plated with cranial plating hardware and copious bacitracin irrigation was utilized. 2-0 Vicryl sutures wereused in a inverted interrupted fashion for closure of the galea layer followed by 4-0 Prolene inferiorly and Dermabond anteriorly for skin. The wound was dressed with bacitracin Xeroform Telfa and nancy. All needle and sponge counts were correct. The patient was taken to the ICU in stable condition. Patient was accompanied to the next level of care. A verbal hanoff of the elements of the post-procedure note including orders and instructions was completed. ESTIMATED BLOOD LOSS: 150 cc SPECIMENS REMOVED: None DRAINS: None IMPLANTS: CHRISTIE Lundy Lyoplsilvio COMPLICATIONS: None Attending: Oumar Mercer MD Dictated by: Denzel Mi MD ATTESTATION I performed this procedure with a resident. [facility] Staff name: Oumar Mercer MD Date: 12/30/2017 Procedures (Immed Post or Bedside) - Ruben Helm MD - 12/29/2017 10:50 AM CSTNeuro Interventional Immediate Post Procedure Note Date: 12/29/2017 Attending Physician: Ruben Helm MD Engine Dispatcher(s): Amy Cerebral Angiogram Time out performed: Consent obtained, correct patient verified, correct procedure verified, correct site verified, patient marked as necessary. Indications: aSAH Anesthesia: General (Mask) Sedation/Medication Plan: General Anesthesia Post Op Dx: aSAH Findings: 1) A-comm artery aneurysm measuring 6.03 mm in height, 5.11 mm in width, and 2.78 mm at the neck with a moderate size Espinoza's point; 2) Right P- comm artery aneurysm measuring 3.27 mm in width, 3.11 mm in height, and 2.76 mm at the neck. Estimated Blood Loss: Minimal Specimen(s) Removed/Disposition: None Complications: None Comments: Plan for clipping of A-comm artery aneurysm as coil embolization is not safe and feasibledue to wide neck Closure Device: StarClose Recommended Blood Pressure Parameters: SBP <140 mmHg Neuro Exam: Intubated, sedated Ruben Helm MD Pager: [phone] Advanced Care Planning/Resuscitation Status - Nata Thayer DO - 12/29/2017 5: 50 AM CSTAdvance Care Planning/Resuscitation Status Conversation Individuals present for advance care planning conversation: resident/fellow physician Pertinent details of conversation (including direct quotes from patient or surrogate): Discussion with patient Outcome of conversation: Full Code Documents completed as a result of this conversation: None Other documents present, which outline patient/surrogate wishes: None in this encounter Plan of Treatment Not on fileas of this encounter Procedures Procedure Name Priority Date/Time Associated Diagnosis Comments CONSULT IV THERAPY Routine 01/03/2018 6:32 TEAM PM FOOD PRESERVATION SCIENTIST ECG-SCAN 12/29/2017 11:15 Results for this PM FOOD PRESERVATION SCIENTIST procedure are in the results section. REPAIR ANEURYSM 12/29/2017 11:00 Subarachnoid CRANIOTOMY AM FOOD PRESERVATION SCIENTIST hemorrhage (HCC) in this encounter Results POC GLUCOSE (01/13/2018 7:11 AM) Component Value Ref Range Glucose, POC 107 (H) 70 - 100 MG/DL Specimen Performing Laboratory [facility] [address] [place] [address] CBC AND DIFF (01/13/2018 4:10 AM) Component Value Ref Range White Blood Cells [...] K/UL Specimen Performing Laboratory Blood [facility] [address] [place] [address] BASIC METABOLIC PANEL (01/13/2018 4:10 AM) Component Value Ref Range Sodium 133 (L) [...] questions. Specimen Performing Laboratory Blood [facility] [address] [place] [address] POC GLUCOSE (01/12/2018 9:27 PM) Component Value Ref Range Glucose, POC 133 (H) 70 - 100 MG/DL Specimen Performing Laboratory [facility] [address] [place] [address] POC GLUCOSE (01/12/2018 6:04 PM) Component Value Ref Range Glucose, POC 108 (H) 70 - 100 MG/DL Specimen Performing Laboratory [facility] [address] [place] [address]272 POC GLUCOSE (01/12/2018 12:12 PM) Component Value Ref Range Glucose, POC 174 (H) 70 - 100 MG/DL Specimen Performing Laboratory [facility] [address] [place] [address] POC GLUCOSE (01/12/2018 6:39 AM) Component Value Ref Range Glucose, POC 115 (H) 70 - 100 MG/DL Specimen Performing Laboratory [facility] [address] [place] [address] CBC AND DIFF (01/12/2018 4:09 AM) Component Value Ref Range White Blood Cells 9.0 4.5 - 11.0 K/UL RBC 3.11 (L) 4.0 - 5.0 M/UL Hemoglobin 9.8 (L) 12.0 - 15.0 GM/DL Hematocrit 28.6 (L) 36 - 45 % MCV 91.9 80 - 100 FL MCH 31.6 26 - 34 PG MCHC 34.4 32.0 - 36.0 G/DL RDW 14.8 11 - 15 % Platelet Count 195 150 - 400 K/UL MPV 7.3 7 - 11 FL Neutrophils 80 (H) 41 - 77 % Lymphocytes 13 (L) 24 - 44 % Monocytes 6 4 - 12 % Eosinophils 1 0 - 5 % Basophils 0 0 - 2 % Absolute Neutrophil Count 7.30 (H) 1.8 - 7.0 K/UL Absolute Lymph Count 1.20 1.0 - 4.8 K/UL Absolute Monocyte Count 0.50 0 - 0.80 K/UL Absolute Eosinophil Count 0.10 0 - 0.45 K/UL Absolute Basophil Count 0.00 0 - 0.20 K/UL Specimen Performing Laboratory Blood MAIN [facility] [address] [place] [address] BASIC METABOLIC PANEL (01/12/2018 4:09 AM) Component Value Ref Range Sodium 134 (L) 137 - 147 MMOL/L Potassium 4.5 3.5 - 5.1 MMOL/L Chloride 102 98 - 110 MMOL/L CO2 25 21 - 30 MMOL/L Anion Gap 7 3 - 12 Glucose 104 (H) 70 - 100 MG/DL Blood Urea Nitrogen 25 7 - 25 MG/DL Creatinine 0.73 0.4 - 1.00 MG/DL Calcium 9.0 8.5 [...] Pharmacist for questions. Specimen Performing Laboratory Blood [facility] [address] [place] [address] POC GLUCOSE (01/12/2018 2:24 AM) Component Value Ref Range Glucose, POC 99 70 - 100 MG/DL Specimen Performing Laboratory [facility] [address] [place] [address]9534 POC GLUCOSE (01/11/2018 8:41 PM) Component Value Ref Range Glucose, POC 138 (H) 70 - 100 MG/DL Specimen Performing Laboratory [facility] [address] [place] [address] 24032 POC GLUCOSE (01/11/2018 5:37 PM) Component Value Ref Range Glucose, POC 90 70 - 100 MG/DL Specimen Performing Laboratory [facility] [address] [place] [address] 89773 POC GLUCOSE (01/11/2018 5:15 PM) Component Value Ref Range Glucose, POC 81 70 - 100 MG/DL Specimen Performing Laboratory [facility] [address] [place] [address]1527 POC GLUCOSE (01/11/2018 11:16 AM) Component Value Ref Range Glucose, POC 110 (H) 70 - 100 MG/DL Specimen Performing Laboratory [address] [address] POC GLUCOSE (01/11/2018 8:24 AM) Component Value Ref Range Glucose, POC 183 (H) 70 - 100 MG/DL Specimen Performing Laboratory [facility] [address] [place] [address] CBC AND DIFF (01/11/2018 4:02 AM) Component Value Ref Range White Blood Cells 8.6 4.5 - 11.0 K/UL RBC 2.93 (L) 4.0 - 5.0 M/UL Hemoglobin 9.1 (L) 12.0 - 15.0 GM/DL Hematocrit 27.1 (L) 36 - 45 % MCV 92.5 80 - 100 FL MCH 31.1 26 - 34 PG MCHC 33.6 32.0 - 36.0 G/DL RDW 14.9 11 - 15 % Platelet Count 188 150 - 400 K/UL MPV 7.0 7 - 11 FL Neutrophils 79 (H) 41 - 77 % Lymphocytes 15 (L) 24 - 44 % Monocytes 5 4 - 12 % Eosinophils 1 0 - 5 % Basophils 0 0 - 2 % Absolute Neutrophil Count 6.80 1.8 - 7.0 K/UL Absolute Lymph Count 1.30 1.0 - 4.8 K/UL Absolute Monocyte Count 0.40 0 - 0.80 K/UL Absolute Eosinophil Count 0.10 0 - 0.45 K/UL Absolute Basophil Count 0.00 0 - 0.20 K/UL Specimen Performing Laboratory Blood [facility] [address] [place] [address] BASIC METABOLIC PANEL (01/11/2018 4:02 AM) Component Value Ref Range Sodium 136 (L) 137 - 147 MMOL/L Potassium 4.5 3.5 - 5.1 MMOL/L Chloride 105 98 - 110 MMOL/L CO2 25 21 - 30 MMOL/L Anion Gap 6 3 - 12 Glucose 94 70 - 100 MG/DL Blood Urea Nitrogen 23 7 - 25 MG/DL Creatinine 0.69 0.4 - 1.00 MG/DL Calcium 8.9 8.5 - 10.6 MG/DL eGFR Non >60 [...] questions. Specimen Performing Laboratory Blood [facility] [address] [place] [address]25 POC GLUCOSE (01/11/2018 2:20 AM) Component Value Ref Range Glucose, POC 114 (H) 70 - 100 MG/DL Specimen Performing Laboratory [facility] [address] [place] [address] POC GLUCOSE (01/10/2018 9:05 PM) Component Value Ref Range Glucose, POC 191 (H) 70 - 100 MG/DL Specimen Performing Laboratory [facility] [address] [place] [address]260 POC GLUCOSE (01/10/2018 4:40 PM) Component Value Ref Range Glucose, POC 212 (H) 70 - 100 MG/DL Specimen Performing Laboratory [facility] [address] [place] [address] POC GLUCOSE (01/10/2018 7:53 AM) Component Value Ref Range Glucose, POC 157 (H) 70 - 100 MG/DL Specimen Performing Laboratory [facility] [address] [place] [address] CBC AND DIFF (01/10/2018 4:51 AM) Component Value Ref Range White Blood Cells 7.8 4.5 - 11.0 K/UL RBC 3.05 (L) 4.0 - 5.0 M/UL Hemoglobin 9.4 (L) 12.0 - 15.0 GM/DL Hematocrit 28.3 (L) 36 - 45 % MCV 92.8 80 - 100 FL MCH 30.7 26 - 34 PG MCHC 33.1 32.0 - 36.0 G/DL RDW 15.0 11 - 15 % Platelet Count 196 150 - 400 K/UL MPV 6.8 (L) 7 - 11 FL Neutrophils 76 41 - 77 % Lymphocytes 17 (L) 24 - 44 % Monocytes 6 4 - 12 % Eosinophils 1 0 - 5 % Basophils 0 0 - 2 % Absolute Neutrophil Count 5.90 1.8 - 7.0 K/UL Absolute Lymph Count 1.30 1.0 - 4.8 K/UL Absolute Monocyte Count 0.50 0 - 0.80 K/UL Absolute Eosinophil Count 0.10 0 - 0.45 K/UL Absolute Basophil Count 0.00 0 - 0.20 K/UL Specimen Performing Laboratory Blood [facility] [address] [place] [address] BASIC METABOLIC PANEL (01/10/2018 4:51 AM) Component Value Ref Range Sodium 135 (L) 137 - 147 MMOL/L Potassium 4.1 3.5 - 5.1 MMOL/L Chloride 105 98 - 110 MMOL/L CO2 23 21 - 30 MMOL/L Anion Gap 7 3 - 12 Glucose 103 (H) 70 - 100 MG/DL Blood Urea Nitrogen 28 (H) 7 - 25 MG/DL Creatinine 0.81 0.4 - 1.00 MG/DL Calcium 8.9 8.5 - 10.6 MG/DL eGFR Non >60 [...] Pharmacist for questions. Specimen Performing Laboratory Blood [facility] [address] [place] [address] POC GLUCOSE (01/09/2018 8:44 PM) Component Value Ref Range Glucose, POC 271 (H) 70 - 100 MG/DL Specimen Performing Laboratory [facility] [address] [place] [address] 13389 POC GLUCOSE (01/09/2018 6:04 PM) Component Value Ref Range Glucose, POC 182 (H) 70 - 100 MG/DL Specimen Performing Laboratory [facility] [address] [place] [address] 31035 POC GLUCOSE (01/09/2018 11:05 AM) Component Value Ref Range Glucose, POC 220 (H) 70 - 100 MG/DL Specimen Performing Laboratory [facility] [address] [place] [address] 31044 POC GLUCOSE (01/09/2018 6:28 AM) Component Value Ref Range Glucose, POC 194 (H) 70 - 100 MG/DL Specimen Performing Laboratory [facility] [address] [place] [address] CBC AND DIFF (01/09/2018 6:10 AM) Component Value Ref Range White Blood Cells 8.3 4.5 - 11.0 K/UL RBC 3.43 (L) 4.0 - 5.0 M/UL Hemoglobin 10.8 (L) 12.0 - 15.0 GM/DL Hematocrit 31.3 (L) 36 - 45 % MCV 91.3 80 - 100 FL MCH 31.4 26 - 34 PG MCHC 34.4 32.0 - 36.0 G/DL RDW 15.0 11 - 15 % Platelet Count 192 150 - 400 K/UL MPV 7.0 7 - 11 FL Neutrophils 70 41 - 77 % Lymphocytes 23 (L) 24 - 44 % Monocytes 6 4 - 12 % Eosinophils 1 0 - 5 % Basophils 0 0 - 2 % Absolute Neutrophil Count 5.70 1.8 - 7.0 K/UL Absolute Lymph Count 1.90 1.0 - 4.8 K/UL Absolute Monocyte Count 0.50 0 - 0.80 K/UL Absolute Eosinophil Count 0.10 0 - 0.45 K/UL Absolute Basophil Count 0.00 0 - 0.20 K/UL Specimen Performing Laboratory Blood [facility] [address] [place] [address] BASIC METABOLIC PANEL (01/09/2018 6:10 AM) Component Value Ref Range Sodium 135 (L) 137 - 147 MMOL/L Potassium 4.3 3.5 - 5.1 MMOL/L Chloride 104 98 - 110 MMOL/L CO2 22 21 - 30 MMOL/L Anion Gap 9 3 - 12 Glucose 167 (H) 70 - 100 MG/DL Blood Urea Nitrogen 28 (H) 7 - 25 MG/DL Creatinine 0.76 0.4 - 1.00 MG/DL Calcium 9.4 8.5 - 10.6 MG/DL eGFR Non >60 [...] questions. Specimen Performing Laboratory Blood [facility] [address] [place] [address]2355 POC GLUCOSE (01/08/2018 10:09 PM) Component Value Ref Range Glucose, POC 186 (H) 70 - 100 MG/DL Specimen Performing Laboratory [facility] [address] [place] [address] 48165 POC GLUCOSE (01/08/2018 5:25 PM) Component Value Ref Range Glucose, POC 158 (H) 70 - 100 MG/DL Specimen Performing Laboratory [facility] [address] [place] [address]308 SODIUM (01/08/2018 3:49 PM) Component Value Ref Range Sodium 134 (L) 137 - 147 MMOL/L Specimen Performing Laboratory Blood [facility] [address] [place] [address] 04158 POC GLUCOSE (01/08/2018 11:42 AM) Component Value Ref Range Glucose, POC 231 (H) 70 - 100 MG/DL Specimen Performing Laboratory [facility] [address] [place] [address] 88971 POC GLUCOSE (01/08/2018 8:28 AM) Component Value Ref Range Glucose, POC 138 (H) 70 - 100 MG/DL Specimen Performing Laboratory [facility] [address] [place] [address] CBC AND DIFF (01/08/2018 6:08 AM) Component Value Ref Range White Blood Cells 8.6 4.5 - 11.0 K/UL RBC 3.35 (L) 4.0 - 5.0 M/UL Hemoglobin 9.9 (L) 12.0 - 15.0 GM/DL Hematocrit 30.5 (L) 36 - 45 % MCV 90.9 80 - 100 FL MCH 29.4 26 - 34 PG MCHC 32.3 32.0 - 36.0 G/DL RDW 14.4 11 - 15 % Platelet Count 217 150 - 400 K/UL MPV 6.5 (L) 7 - 11 FL Neutrophils 70 41 - 77 % Lymphocytes 22 (L) 24 - 44 % Monocytes 7 4 - 12 % Eosinophils 1 0 - 5 % Basophils 0 0 - 2 % Absolute Neutrophil Count 6.00 1.8 - 7.0 K/UL Absolute Lymph Count 1.90 1.0 - 4.8 K/UL Absolute Monocyte Count 0.60 0 - 0.80 K/UL Absolute Eosinophil Count 0.10 0 - 0.45 K/UL Absolute Basophil Count 0.00 0 - 0.20 K/UL Specimen Performing Laboratory Blood [facility]IN [facility] [address] [place] [address] BASIC METABOLIC PANEL (01/08/2018 6:08 AM) Component Value Ref Range Sodium 134 (L) 137 - 147 MMOL/L Potassium 4.0 3.5 - 5.1 MMOL/L Chloride 105 98 - 110 MMOL/L CO2 21 21 - 30 MMOL/L Anion Gap 8 3 - 12 Glucose 137 (H) 70 - 100 MG/DL Blood Urea Nitrogen 22 7 - 25 MG/DL Creatinine 0.72 0.4 - 1.00 MG/DL Calcium 8.7 8.5 - 10.6 MG/DL eGFR Non >60 [...] Pharmacist for questions. Specimen Performing Laboratory Blood [facility] [address] [place] [address] 25709 POC GLUCOSE (01/08/2018 5:59 AM) Component Value Ref Range Glucose, POC 137 (H) 70 - 100 MG/DL Specimen Performing Laboratory [facility] [address] [place] [address] 6[address]40 POC GLUCOSE (01/07/2018 9:37 PM) Component Value Ref Range Glucose, POC 167 (H) 70 - 100 MG/DL Specimen Performing Laboratory [facility] [address] [place] [address] 23373 POC GLUCOSE (01/07/2018 5:54 PM) Component Value Ref Range Glucose, POC 201 (H) 70 - 100 MG/DL Specimen Performing Laboratory [facility] [address] [place] [address] 64743 POC GLUCOSE (01/07/2018 11:37 AM) Component Value Ref Range Glucose, POC 218 (H) 70 - 100 MG/DL Specimen Performing Laboratory [facility] [address] [place] [address] 51950 POC GLUCOSE (01/07/2018 8:07 AM) Component Value Ref Range Glucose, POC 200 (H) 70 - 100 MG/DL Specimen Performing Laboratory [facility] [address] [place] [address] 28354 CBC AND DIFF (01/07/2018 3:34 AM) Component Value Ref Range White Blood Cells 7.5 4.5 - 11.0 K/UL RBC 3.23 (L) 4.0 - 5.0 M/UL Hemoglobin 10.0 (L) 12.0 - 15.0 GM/DL Hematocrit 29.4 (L) 36 - 45 % MCV 91.1 80 - 100 FL MCH 31.0 26 - 34 PG MCHC 34.1 32.0 - 36.0 G/DL RDW 14.3 11 - 15 % Platelet Count 176 150 - 400 K/UL MPV 7.1 7 - 11 FL Neutrophils 68 41 - 77 % Lymphocytes 24 24 - 44 % Monocytes 6 4 - 12 % Eosinophils 2 0 - 5 % Basophils 0 0 - 2 % Absolute Neutrophil Count 5.10 1.8 - 7.0 K/UL Absolute Lymph Count 1.80 1.0 - 4.8 K/UL Absolute Monocyte Count 0.50 0 - 0.80 K/UL Absolute Eosinophil Count 0.10 0 - 0.45 K/UL Absolute Basophil Count 0.00 0 - 0.20 K/UL Specimen Performing Laboratory Blood MAIN LAB [address] [place] [address] 57188 IONIZED CALCIUM (01/07/2018 3:34 AM) Component Value Ref Range Ionized Calcium 1.17 1.0 - 1.3 MMOL/L Specimen Performing Laboratory Blood MAIN LAB [address] [place] [address] 48451 PHOSPHORUS (01/07/2018 3:34 AM) Component Value Ref Range Phosphorus 2.8 2.0 - 4.0 MG/DL Specimen Performing Laboratory Blood MAIN LAB [address] [place] [address] 74285 MAGNESIUM (01/07/2018 3:34 AM) Component Value Ref Range Magnesium 2.0 1.6 - 2.6 mg/dL Specimen Performing Laboratory Blood MAIN LAB [address] [place] [address] 59089 BASIC METABOLIC PANEL (01/07/2018 3:34 AM) Component Value Ref Range Sodium 136 (L) 137 - 147 MMOL/L Potassium 4.3 3.5 - 5.1 MMOL/L Chloride 109 98 - 110 MMOL/L CO2 20 (L) 21 - 30 MMOL/L Anion Gap 7 3 - 12 Glucose 150 (H) 70 - 100 MG/DL Blood Urea Nitrogen 21 7 - 25 MG/DL Creatinine 0.72 0.4 - 1.00 MG/DL Calcium 8.4 (L) 8.5 - 10.6 MG/DL eGFR Non >60 [...] questions. Specimen Performing Laboratory Blood MAIN LAB [address] [place] [address] 29696 POC GLUCOSE (01/06/2018 10:04 PM) Component Value Ref Range Glucose, POC 157 (H) 70 - 100 MG/DL Specimen Performing Laboratory MAIN LAB [address] [place] [address] [place] [address] POC GLUCOSE (01/06/2018 4:26 PM) Component Value Ref Range Glucose, POC 189 (H) 70 - 100 MG/DL Specimen Performing Laboratory MAIN LAB [address] [place] [address] 15441 MAGNESIUM (01/06/2018 1:39 PM) Component Value Ref Range Magnesium 2.1 1.6 - 2.6 mg/dL Specimen Performing Laboratory Blood MAIN [facility] [address] [place] [address] 68445 POC GLUCOSE (01/06/2018 11:11 AM) Component Value Ref Range Glucose, POC 207 (H) 70 - 100 MG/DL Specimen Performing Laboratory MAIN LAB [address] [place] [address] 63028 POC GLUCOSE (01/06/2018 7:35 AM) Component Value Ref Range Glucose, POC 151 (H) 70 - 100 MG/DL Specimen Performing Laboratory MAIN LAB [address] [place] [address] 43506 CBC AND DIFF (01/06/2018 3:14 AM) Component Value Ref Range White Blood Cells 8.2 4.5 - 11.0 K/UL RBC 2.97 (L) 4.0 - 5.0 M/UL Hemoglobin 9.3 (L) 12.0 - 15.0 GM/DL Hematocrit 26.8 (L) 36 - 45 % MCV 90.2 80 - 100 FL MCH 31.4 26 - 34 PG MCHC 34.8 32.0 - 36.0 G/DL RDW 14.1 11 - 15 % Platelet Count 163 150 - 400 K/UL MPV 7.1 7 - 11 FL Neutrophils 69 41 - 77 % Lymphocytes 23 (L) 24 - 44 % Monocytes 6 4 - 12 % Eosinophils 2 0 - 5 % Basophils 0 0 - 2 % Absolute Neutrophil Count 5.60 1.8 - 7.0 K/UL Absolute Lymph Count 1.90 1.0 - 4.8 K/UL Absolute Monocyte Count 0.50 0 - 0.80 K/UL Absolute Eosinophil Count 0.10 0 - 0.45 K/UL Absolute Basophil Count 0.00 0 - 0.20 K/UL Specimen Performing Laboratory Blood MAIN LAB [address] [place] [address] 06176 IONIZED CALCIUM (01/06/2018 3:14 AM) Component Value Ref Range Ionized Calcium 1.21 1.0 - 1.3 MMOL/L Specimen Performing Laboratory Blood MAIN LAB [address] [place] [address] 66646 PHOSPHORUS (01/06/2018 3:14 AM) Component Value Ref Range Phosphorus 3.0 2.0 - 4.0 MG/DL Specimen Performing Laboratory Blood MAIN LAB [address] [place] [address] 48938 MAGNESIUM (01/06/2018 3:14 AM) Component Value Ref Range Magnesium 1.9 1.6 - 2.6 mg/dL Specimen Performing Laboratory Blood MAIN LAB [address] [place] [address] 25830 BASIC METABOLIC PANEL (01/06/2018 3:14 AM) Component Value Ref Range Sodium 134 (L) 137 - 147 MMOL/L Potassium 4.3 3.5 - 5.1 MMOL/L Chloride 110 98 - 110 MMOL/L CO2 18 (L) 21 - 30 MMOL/L Anion Gap 6 3 - 12 Glucose 136 (H) 70 - 100 MG/DL Blood Urea Nitrogen 22 7 - 25 MG/DL Creatinine 0.82 0.4 - 1.00 MG/DL Calcium 8.3 (L) 8.5 - 10.6 MG/DL eGFR Non >60 [...] questions. Specimen Performing Laboratory Blood MAIN LAB [address] [place] [address] 86458 POC GLUCOSE (01/05/2018 9:58 PM) Component Value Ref Range Glucose, POC 155 (H) 70 - 100 MG/DL Specimen Performing Laboratory [facility] [address] [place] [address] 61012 POC GLUCOSE (01/05/2018 5:47 PM) Component Value Ref Range Glucose, POC 204 (H) 70 - 100 MG/DL Specimen Performing Laboratory MAIN LAB [address] [place] [address] 70929 POC GLUCOSE (01/05/2018 11:35 AM) Component Value Ref Range Glucose, POC 220 (H) 70 - 100 MG/DL Specimen Performing Laboratory [facility] [address] [place] [address] US DOPPLER VENOUS BILATERAL (01/05/2018 9:41 AM) [...] Interface, Radiant Results - 01/05/2018 7:22 PM FOOD PRESERVATION SCIENTIST Doppler lower extremity ultrasound Clinical Indication: Female, [...] Mikayla Nagy M.D. on 01/05/2018 10:13 AM. POC GLUCOSE (01/05/2018 7:22 AM) Component Value Ref Range Glucose, POC 160 (H) 70 - 100 MG/DL Specimen Performing Laboratory MAIN LAB [address] [place] [address] BETA HYDROXYBUTYRATE (KETONES) (01/05/2018 4:16 AM) Component Value Ref Range Beta Hydroxybutyrate 0.1 <0.3 MMOL/L Comment: Beta hydroxybutyrate (BOHB) is the most abundant ketone (78%), followed by acetoacetate (20%) and acetone (2%).Measurement BOHB is recommended to assess ketones in DKA. Expected BOHB Results for DKA: Initial presentation high/increasing During treatment decreasing Resolved decreasing/normal Specimen Performing Laboratory MAIN LAB [address] [place] [address] CBC AND DIFF (01/05/2018 4:16 AM) Component Value Ref Range White Blood Cells 6.1 4.5 - 11.0 K/UL RBC 2.79 (L) 4.0 - 5.0 M/UL Hemoglobin 8.4 (L) 12.0 - 15.0 GM/DL Hematocrit 25.2 (L) 36 - 45 % MCV 90.2 80 - 100 FL MCH 30.1 26 - 34 PG MCHC 33.4 32.0 - 36.0 G/DL RDW 14.1 11 - 15 % Platelet Count 146 (L) 150 - 400 K/UL MPV 7.1 7 - 11 FL Neutrophils 63 41 - 77 % Lymphocytes 29 24 - 44 % Monocytes 6 4 - 12 % Eosinophils 2 0 - 5 % Basophils 0 0 - 2 % Absolute Neutrophil Count 3.80 1.8 - 7.0 K/UL Absolute Lymph Count 1.80 1.0 - 4.8 K/UL Absolute Monocyte Count 0.40 0 - 0.80 K/UL Absolute Eosinophil Count 0.10 0 - 0.45 K/UL Absolute Basophil Count 0.00 0 - 0.20 K/UL Specimen Performing Laboratory Blood MAIN LAB [address] [place] [address] IONIZED CALCIUM (01/05/2018 4:16 AM) Component Value Ref Range Ionized Calcium 1.11 1.0 - 1.3 MMOL/L Specimen Performing Laboratory Blood MAIN LAB [address] [place] [address] PHOSPHORUS (01/05/2018 4:16 AM) Component Value Ref Range Phosphorus 3.4 2.0 - 4.0 MG/DL Specimen Performing Laboratory Blood MAIN LAB [address] [place] [address] 33835 MAGNESIUM (01/05/2018 4:16 AM) Component Value Ref Range Magnesium 2.0 1.6 - 2.6 mg/dL Specimen Performing Laboratory Blood MAIN LAB [address] [place] [address] 88983 BASIC METABOLIC PANEL (01/05/2018 4:16 AM) Component Value Ref Range Sodium 133 (L) 137 - 147 MMOL/L Potassium 4.4 3.5 - 5.1 MMOL/L Chloride 108 98 - 110 MMOL/L CO2 18 (L) 21 - 30 MMOL/L Anion Gap 7 3 - 12 Glucose 149 (H) 70 - 100 MG/DL Blood Urea Nitrogen 19 7 - 25 MG/DL Creatinine 0.78 0.4 - 1.00 MG/DL Calcium 7.9 (L) 8.5 - 10.6 MG/DL eGFR Non >60 [...] Pharmacist for questions. Specimen Performing Laboratory Blood [facility] [address] [place] [address] 21178 POC GLUCOSE (01/04/2018 8:14 PM) Component Value Ref Range Glucose, POC 195 (H) 70 - 100 MG/DL Specimen Performing Laboratory MAIN LAB [address] [place] [address] 06418 POC GLUCOSE (01/04/2018 4:22 PM) Component Value Ref Range Glucose, POC 222 (H) 70 - 100 MG/DL Specimen Performing Laboratory MAIN LAB [address] [place] [address] 35376 POC GLUCOSE (01/04/2018 12:08 PM) Component Value Ref Range Glucose, POC 244 (H) 70 - 100 MG/DL Specimen Performing Laboratory MAIN LAB [address] [place] [address] 59752 POC GLUCOSE (01/04/2018 6:46 AM) Component Value Ref Range Glucose, POC 153 (H) 70 - 100 MG/DL Specimen Performing Laboratory MAIN LAB [address] [place] [address] 47551 CBC AND DIFF (01/04/2018 3:45 AM) Component Value Ref Range White Blood Cells 6.9 4.5 - 11.0 K/UL RBC 2.91 (L) 4.0 - 5.0 M/UL Hemoglobin 8.7 (L) 12.0 - 15.0 GM/DL Hematocrit 25.8 (L) 36 - 45 % MCV 88.6 80 - 100 FL MCH 29.8 26 - 34 PG MCHC 33.6 32.0 - 36.0 G/DL RDW 14.3 11 - 15 % Platelet Count 150 150 - 400 K/UL MPV 7.5 7 - 11 FL Neutrophils 62 41 - 77 % Lymphocytes 30 24 - 44 % Monocytes 7 4 - 12 % Eosinophils 1 0 - 5 % Basophils 0 0 - 2 % Absolute Neutrophil Count 4.30 1.8 - 7.0 K/UL Absolute Lymph Count 2.10 1.0 - 4.8 K/UL Absolute Monocyte Count 0.50 0 - 0.80 K/UL Absolute Eosinophil Count 0.10 0 - 0.45 K/UL Absolute Basophil Count 0.00 0 - 0.20 K/UL Specimen Performing Laboratory Blood MAIN LAB [address] [place] [address] 73408 IONIZED CALCIUM (01/04/2018 3:45 AM) Component Value Ref Range Ionized Calcium 1.12 1.0 - 1.3 MMOL/L Specimen Performing Laboratory Blood MAIN LAB [address] [place] [address] 61601 PHOSPHORUS (01/04/2018 3:45 AM) Component Value Ref Range Phosphorus 3.1 2.0 - 4.0 MG/DL Specimen Performing Laboratory Blood MAIN LAB [address] [place] [address] 57832 MAGNESIUM (01/04/2018 3:45 AM) Component Value Ref Range Magnesium 1.8 1.6 - 2.6 mg/dL Specimen Performing Laboratory Blood MAIN LAB [address] [place] [address] 29060 BASIC METABOLIC PANEL (01/04/2018 3:45 AM) Component Value Ref Range Sodium 135 (L) 137 - 147 MMOL/L Potassium 4.3 3.5 - 5.1 MMOL/L Chloride 109 98 - 110 MMOL/L CO2 19 (L) 21 - 30 MMOL/L Anion Gap 7 3 - 12 Glucose 157 (H) 70 - 100 MG/DL Blood Urea Nitrogen 23 7 - 25 MG/DL Creatinine 0.74 0.4 - 1.00 MG/DL Calcium 8.1 (L) 8.5 - 10.6 MG/DL eGFR Non >60 [...] questions. Specimen Performing Laboratory Blood MAIN [facility] [address] [place] [address] 90374 POC GLUCOSE (01/03/2018 8:42 PM) Component Value Ref Range Glucose, POC 206 (H) 70 - 100 MG/DL Specimen Performing Laboratory MAIN LAB [address] [place] [address] 44399 POC GLUCOSE (01/03/2018 4:35 PM) Component Value Ref Range Glucose, POC 174 (H) 70 - 100 MG/DL Specimen Performing Laboratory MAIN LAB [address] [place] [address] 48072 POC GLUCOSE (01/03/2018 11:56 AM) Component Value Ref Range Glucose, POC 184 (H) 70 - 100 MG/DL Specimen Performing Laboratory MAIN LAB [address] [place] [address] 36633 CBC AND DIFF (01/03/2018 9:22 AM) Component Value Ref Range White Blood Cells 10.5 4.5 - 11.0 K/UL RBC 3.51 (L) 4.0 - 5.0 M/UL Hemoglobin 10.5 (L) 12.0 - 15.0 GM/DL Hematocrit 30.8 (L) 36 - 45 % MCV 87.8 80 - 100 FL MCH 30.0 26 - 34 PG MCHC 34.1 32.0 - 36.0 G/DL RDW 14.5 11 - 15 % Platelet Count 210 150 - 400 K/UL MPV 7.0 7 - 11 FL Neutrophils 60 41 - 77 % Lymphocytes 32 24 - 44 % Monocytes 7 4 - 12 % Eosinophils 1 0 - 5 % Basophils 0 0 - 2 % Absolute Neutrophil Count 6.30 1.8 - 7.0 K/UL Absolute Lymph Count 3.40 1.0 - 4.8 K/UL Absolute Monocyte Count 0.70 0 - 0.80 K/UL Absolute Eosinophil Count 0.10 0 - 0.45 K/UL Absolute Basophil Count 0.00 0 - 0.20 K/UL Specimen Performing Laboratory Blood [facility] [address] [place] [address] 58575 POC GLUCOSE (01/03/2018 8:31 AM) Component Value Ref Range Glucose, POC 142 (H) 70 - 100 MG/DL Specimen Performing Laboratory [facility] [address] [place] [address] 99137 POC GLUCOSE (01/03/2018 6:30 AM) Component Value Ref Range Glucose, POC 173 (H) 70 - 100 MG/DL Specimen Performing Laboratory [facility] [address] [place] [address] 22933 IONIZED CALCIUM (01/03/2018 3:40 AM) Component Value Ref Range Ionized Calcium 1.14 1.0 - 1.3 MMOL/L Specimen Performing Laboratory Blood [facility] [address] [place] [address] 68136 PHOSPHORUS (01/03/2018 3:40 AM) Component Value Ref Range Phosphorus 3.1 2.0 - 4.0 MG/DL Specimen Performing Laboratory Blood [facility] [address] [place] [address] 79857 MAGNESIUM (01/03/2018 3:40 AM) Component Value Ref Range Magnesium 2.0 1.6 - 2.6 mg/dL Specimen Performing Laboratory Blood [facility] [address] [place] [address] 60799 BASIC METABOLIC PANEL (01/03/2018 3:40 AM) Component Value Ref Range Sodium 136 (L) 137 - 147 MMOL/L Potassium 4.2 3.5 - 5.1 MMOL/L Chloride 112 (H) 98 - 110 MMOL/L CO2 18 (L) 21 - 30 MMOL/L Anion Gap 6 3 - 12 Glucose 167 (H) 70 - 100 MG/DL Blood Urea Nitrogen 31 (H) 7 - 25 MG/DL Creatinine 0.84 0.4 - 1.00 MG/DL Calcium 8.3 (L) 8.5 - 10.6 MG/DL eGFR Non >60 [...] questions. Specimen Performing Laboratory Blood MAIN LAB [address] [place] [address] 46916 POC GLUCOSE (01/02/2018 8:43 PM) Component Value Ref Range Glucose, POC 218 (H) 70 - 100 MG/DL Specimen Performing Laboratory [facility] [address] [place] [address] 49390 POC GLUCOSE (01/02/2018 5:22 PM) Component Value Ref Range Glucose, POC 199 (H) 70 - 100 MG/DL Specimen Performing Laboratory [facility] [address] [place] [address] 35253 POC GLUCOSE (01/02/2018 11:10 AM) Component Value Ref Range Glucose, POC 203 (H) 70 - 100 MG/DL Specimen Performing Laboratory [facility] [address] [place] [address] 12125 POC GLUCOSE (01/02/2018 6:57 AM) Component Value Ref Range Glucose, POC 136 (H) 70 - 100 MG/DL Specimen Performing Laboratory [facility] [address] [place] [address] 56323 IONIZED CALCIUM (01/02/2018 3:20 AM) Component Value Ref Range Ionized Calcium 1.18 1.0 - 1.3 MMOL/L Specimen Performing Laboratory Blood [facility] [address] [place] [address] 53638 PHOSPHORUS (01/02/2018 3:20 AM) Component Value Ref Range Phosphorus 3.6 2.0 - 4.0 MG/DL Specimen Performing Laboratory Blood [facility] [address] [place] [address] 52610 MAGNESIUM (01/02/2018 3:20 AM) Component Value Ref Range Magnesium 2.1 1.6 - 2.6 mg/dL Specimen Performing Laboratory Blood [facility] [address] [place] [address] 23456 BASIC METABOLIC PANEL (01/02/2018 3:20 AM) Component Value Ref Range Sodium 139 137 - 147 MMOL/L Potassium 4.2 3.5 - 5.1 MMOL/L Chloride 110 98 - 110 MMOL/L CO2 19 (L) 21 - 30 MMOL/L Anion Gap 10 3 - 12 Glucose 123 (H) 70 - 100 MG/DL Blood Urea Nitrogen 40 (H) 7 - 25 MG/DL Creatinine 0.92 0.4 - 1.00 MG/DL Calcium 8.3 (L) 8.5 - 10.6 MG/DL eGFR Non 60 (L) >60 mL/min Comment: The eGFR is not [...] questions. Specimen Performing Laboratory Blood MAIN LAB [address] [place] [address] CBC AND DIFF (01/02/2018 3:20 AM) Component Value Ref Range White Blood Cells 10.6 4.5 - 11.0 K/UL RBC 2.91 (L) 4.0 - 5.0 M/UL Hemoglobin 8.8 (L) 12.0 - 15.0 GM/DL Hematocrit 26.4 (L) 36 - 45 % MCV 90.9 80 - 100 FL MCH 30.3 26 - 34 PG MCHC 33.4 32.0 - 36.0 G/DL RDW 13.8 11 - 15 % Platelet Count 156 150 - 400 K/UL MPV 7.4 7 - 11 FL Neutrophils 73 41 - 77 % Lymphocytes 21 (L) 24 - 44 % Monocytes 6 4 - 12 % Eosinophils 0 0 - 5 % Basophils 0 0 - 2 % Absolute Neutrophil Count 7.60 (H) 1.8 - 7.0 K/UL Absolute Lymph Count 2.20 1.0 - 4.8 K/UL Absolute Monocyte Count 0.70 0 - 0.80 K/UL Absolute Eosinophil Count 0.00 0 - 0.45 K/UL Absolute Basophil Count 0.00 0 - 0.20 K/UL Specimen Performing Laboratory Blood MAIN [facility] [address] [place] [address] POC GLUCOSE (01/01/2018 8:07 PM) Component Value Ref Range Glucose, POC 126 (H) 70 - 100 MG/DL Specimen Performing Laboratory MAIN LAB [address] [place] [address] 80897 POC GLUCOSE (01/01/2018 4:19 PM) Component Value Ref Range Glucose, POC 265 (H) 70 - 100 MG/DL Specimen Performing Laboratory [facility] [address] [place] [address] 53106 POC GLUCOSE (01/01/2018 11:34 AM) Component Value Ref Range Glucose, POC 296 (H) 70 - 100 MG/DL Specimen Performing Laboratory MAIN LAB [address] [place] [address] 25416 POC GLUCOSE (01/01/2018 6:17 AM) Component Value Ref Range Glucose, POC 243 (H) 70 - 100 MG/DL Specimen Performing Laboratory [facility] [address] [place] [address] 70498 IONIZED CALCIUM (01/01/2018 5:28 AM) Component Value Ref Range Ionized Calcium 1.23 1.0 - 1.3 MMOL/L Specimen Performing Laboratory Blood [facility] [address] [place] [address] 25136 PHOSPHORUS (01/01/2018 5:28 AM) Component Value Ref Range Phosphorus 3.4 2.0 - 4.0 MG/DL Specimen Performing Laboratory Blood [facility] [address] [place] [address] 43658 MAGNESIUM (01/01/2018 5:28 AM) Component Value Ref Range Magnesium 2.1 1.6 - 2.6 mg/dL Specimen Performing Laboratory Blood [facility] [address] [place] [address] 52888 BASIC METABOLIC PANEL (01/01/2018 5:28 AM) Component Value Ref Range Sodium 137 137 - 147 MMOL/L Potassium 4.5 3.5 - 5.1 MMOL/L Chloride 109 98 - 110 MMOL/L CO2 18 (L) 21 - 30 MMOL/L Anion Gap 10 3 - 12 Glucose 235 (H) 70 - 100 MG/DL Blood Urea Nitrogen 29 (H) 7 - 25 MG/DL Creatinine 0.90 0.4 - 1.00 MG/DL Calcium 8.9 8.5 - 10.6 MG/DL eGFR Non >60 [...] questions. Specimen Performing Laboratory Blood MAIN [facility] [address] [place] [address] CBC AND DIFF (01/01/2018 5:28 AM) Component Value Ref Range White Blood Cells 8.5 4.5 - 11.0 K/UL RBC 3.16 (L) 4.0 - 5.0 M/UL Hemoglobin 9.6 (L) 12.0 - 15.0 GM/DL Hematocrit 28.7 (L) 36 - 45 % MCV 90.8 80 - 100 FL MCH 30.4 26 - 34 PG MCHC 33.5 32.0 - 36.0 G/DL RDW 14.1 11 - 15 % Platelet Count 118 (L) 150 - 400 K/UL MPV 7.0 7 - 11 FL Neutrophils 89 (H) 41 - 77 % Lymphocytes 8 (L) 24 - 44 % Monocytes 3 (L) 4 - 12 % Eosinophils 0 0 - 5 % Basophils 0 0 - 2 % Absolute Neutrophil Count 7.60 (H) 1.8 - 7.0 K/UL Absolute Lymph Count 0.70 (L) 1.0 - 4.8 K/UL Absolute Monocyte Count 0.20 0 - 0.80 K/UL Absolute Eosinophil Count 0.00 0 - 0.45 K/UL Absolute Basophil Count 0.00 0 - 0.20 K/UL Specimen Performing Laboratory Blood MAIN LAB [address] [place] [address] UA REFLEX CULTURE LABEL (12/31/2017 11:45 PM) Component Value Ref Range UA Reflex Culture LAB LABEL Specimen Performing Laboratory Urine [facility] [address] [place] [address] URINALYSIS MICROSCOPIC REFLEX TO CULTURE (12/31/2017 11:45 PM) Component Value Ref Range WBCs,UA 2-10 0 - 2 /HPF RBCs,UA 0-2 0 - 3 /HPF Comment,UA Urine submitted for reflex culture if criteria are met:WBC>10, positive nitrite and/or >=1+ leukocyte esterase. If quantity is not sufficient, an addendum will follow. Squamous Epithelial Cells 0-2 0 - 5 Specimen Performing Laboratory Urine [address] [address] URINALYSIS DIPSTICK REFLEX TO CULTURE (12/31/2017 11:45 PM) Component Value Ref Range Color,UA YELLOW Turbidity,UA CLEAR CLEAR-CLEAR Specific [place]-Urine 1.027 1.003 - 1.035 pH,UA 6.0 5.0 - 8.0 Protein,UA 1+ (A) NEG-NEG Glucose,UA NEG NEG-NEG Ketones,UA 1+ (A) NEG-NEG Bilirubin,UA NEG NEG-NEG Blood,UA NEG NEG-NEG Urobilinogen,UA NORMAL NORM-NORMAL Nitrite,UA NEG NEG-NEG Leukocytes,UA NEG NEG-NEG Urine Ascorbic Acid, UA NEG NEG-NEG Specimen Performing Laboratory Urine [address] [address] POC GLUCOSE (12/31/2017 10:03 PM) Component Value Ref Range Glucose, POC 229 (H) 70 - 100 MG/DL Specimen Performing Laboratory [address] [address] POC GLUCOSE (12/31/2017 4:42 PM) Component Value Ref Range Glucose, POC 208 (H) 70 - 100 MG/DL Specimen Performing Laboratory [address] [address] POC GLUCOSE (12/31/2017 12:00 PM) Component Value Ref Range Glucose, POC 245 (H) 70 - 100 MG/DL Specimen Performing Laboratory [address] [address] POC GLUCOSE (12/31/2017 7:50 AM) Component Value Ref Range Glucose, POC 175 (H) 70 - 100 MG/DL Specimen Performing Laboratory [address] [address] POC GLUCOSE (12/31/2017 3:03 AM) Component Value Ref Range Glucose, POC 198 (H) 70 - 100 MG/DL Specimen Performing Laboratory [address] [address] IONIZED CALCIUM (12/31/2017 3:03 AM) Component Value Ref Range Ionized Calcium 1.09 1.0 - 1.3 MMOL/L Specimen Performing Laboratory Blood [address] [address] PHOSPHORUS (12/31/2017 3:03 AM) Component Value Ref Range Phosphorus 2.4 2.0 - 4.0 MG/DL Specimen Performing Laboratory Blood MAIN LAB [address] [place] [address] MAGNESIUM (12/31/2017 3:03 AM) Component Value Ref Range Magnesium 2.0 1.6 - 2.6 mg/dL Specimen Performing Laboratory Blood MAIN LAB [address] [place] [address] BASIC METABOLIC PANEL (12/31/2017 3:03 AM) Component Value Ref Range Sodium 137 137 - 147 MMOL/L Potassium 4.3 3.5 - 5.1 MMOL/L Chloride 109 98 - 110 MMOL/L CO2 20 (L) 21 - 30 MMOL/L Anion Gap 8 3 - 12 Glucose 190 (H) 70 - 100 MG/DL Blood Urea Nitrogen 18 7 - 25 MG/DL Creatinine 0.96 0.4 - 1.00 MG/DL Calcium 8.6 8.5 - 10.6 MG/DL eGFR Non 57 (L) >60 mL/min Comment: The eGFR is not [...] questions. Specimen Performing Laboratory Blood MAIN LAB [address] [place] [address] CBC AND DIFF (12/31/2017 3:03 AM) Component Value Ref Range White Blood Cells 11.7 (H) 4.5 - 11.0 K/UL RBC 3.35 (L) 4.0 - 5.0 M/UL Hemoglobin 10.1 (L) 12.0 - 15.0 GM/DL Hematocrit 29.7 (L) 36 - 45 % MCV 88.7 80 - 100 FL MCH 30.0 26 - 34 PG MCHC 33.8 32.0 - 36.0 G/DL RDW 14.2 11 - 15 % Platelet Count 131 (L) 150 - 400 K/UL MPV 6.9 (L) 7 - 11 FL Neutrophils 77 41 - 77 % Lymphocytes 16 (L) 24 - 44 % Monocytes 7 4 - 12 % Eosinophils 0 0 - 5 % Basophils 0 0 - 2 % Absolute Neutrophil Count 9.00 (H) 1.8 - 7.0 K/UL Absolute Lymph Count 1.80 1.0 - 4.8 K/UL Absolute Monocyte Count 0.80 0 - 0.80 K/UL Absolute Eosinophil Count 0.00 0 - 0.45 K/UL Absolute Basophil Count 0.00 0 - 0.20 K/UL Specimen Performing Laboratory Blood [facility] [address] [place] [address] 17344 POC GLUCOSE (12/30/2017 9:30 PM) Component Value Ref Range Glucose, POC 242 (H) 70 - 100 MG/DL Specimen Performing Laboratory [facility] [address] [place] [address] 69001 POC GLUCOSE (12/30/2017 4:21 PM) Component Value Ref Range Glucose, POC 148 (H) 70 - 100 MG/DL Specimen Performing Laboratory [facility] [address] [place] [address] 21534 POC GLUCOSE (12/30/2017 11:59 AM) Component Value Ref Range Glucose, POC 142 (H) 70 - 100 MG/DL Specimen Performing Laboratory [facility] [address] [place] [address] 53887 MAGNESIUM (12/30/2017 10:31 AM) Component Value Ref Range Magnesium 2.2 1.6 - 2.6 mg/dL Specimen Performing Laboratory Blood [facility] [address] [place] [address] 93690 POTASSIUM (12/30/2017 10:31 AM) Component Value Ref Range Potassium 3.8 3.5 - 5.1 MMOL/L Specimen Performing Laboratory Blood [facility] [address] [place] [address] 18954 POC GLUCOSE (12/30/2017 8:28 AM) Component Value Ref Range Glucose, POC 130 (H) 70 - 100 MG/DL Specimen Performing Laboratory [facility] [address] [place] [address] 55753 POC GLUCOSE (12/30/2017 5:52 AM) Component Value Ref Range Glucose, POC 144 (H) 70 - 100 MG/DL Specimen Performing Laboratory [facility] [address] [place] [address] 42868 POC GLUCOSE (12/30/2017 4:32 AM) Component Value Ref Range Glucose, POC 153 (H) 70 - 100 MG/DL Specimen Performing Laboratory [facility] [address] [place] [address] CTA HEAD WO/W CONTR+POST PRO (12/30/2017 4:18 AM) Specimen Performing Laboratory [facility] RAD RESULTS [...] Interface, Radiant Results - 12/30/2017 12:48 PM FOOD PRESERVATION SCIENTIST EXAM: CTA HEAD HISTORY: Female, 72 years. [...] Shorty Mi D.O. on 12/30/2017 8:18 AM. POC GLUCOSE (12/30/2017 3:08 AM) Component Value Ref Range Glucose, POC 146 (H) 70 - 100 MG/DL Specimen Performing Laboratory MAIN LAB [address] [place] [address] TROPONIN-I (12/30/2017 2:05 AM) Component Value Ref Range Troponin-I 0.03 0.0 - 0.05 NG/ML Specimen Performing Laboratory MAIN LAB [address] [place] [address] IONIZED CALCIUM (12/30/2017 2:05 AM) Component Value Ref Range Ionized Calcium 1.15 1.0 - 1.3 MMOL/L Specimen Performing Laboratory Blood MAIN LAB [address] [place] [address] PHOSPHORUS (12/30/2017 2:05 AM) Component Value Ref Range Phosphorus 2.9 2.0 - 4.0 MG/DL Specimen Performing Laboratory Blood MAIN LAB [address] [place] [address] MAGNESIUM (12/30/2017 2:05 AM) Component Value Ref Range Magnesium 1.5 (L) 1.6 - 2.6 mg/dL Specimen Performing Laboratory Blood MAIN LAB [address] [place] [address] BASIC METABOLIC PANEL (12/30/2017 2:05 AM) Component Value Ref Range Sodium 141 137 - 147 MMOL/L Potassium 3.7 3.5 - 5.1 MMOL/L Chloride 116 (H) 98 - 110 MMOL/L CO2 16 (L) 21 - 30 MMOL/L Anion Gap 9 3 - 12 Glucose 112 (H) 70 - 100 MG/DL Blood Urea Nitrogen 14 7 - 25 MG/DL Creatinine 0.92 0.4 - 1.00 MG/DL Calcium 7.7 (L) 8.5 - 10.6 MG/DL eGFR Non 60 (L) >60 mL/min Comment: The eGFR is not [...] questions. Specimen Performing Laboratory Blood MAIN LAB [address] [place] [address] CBC AND DIFF (12/30/2017 2:05 AM) Component Value Ref Range White Blood Cells 12.4 (H) 4.5 - 11.0 K/UL RBC 3.29 (L) 4.0 - 5.0 M/UL Hemoglobin 9.9 (L) 12.0 - 15.0 GM/DL Hematocrit 29.8 (L) 36 - 45 % MCV 90.6 80 - 100 FL MCH 30.0 26 - 34 PG MCHC 33.1 32.0 - 36.0 G/DL RDW 14.1 11 - 15 % Platelet Count 146 (L) 150 - 400 K/UL MPV 7.0 7 - 11 FL Neutrophils 86 (H) 41 - 77 % Lymphocytes 8 (L) 24 - 44 % Monocytes 6 4 - 12 % Eosinophils 0 0 - 5 % Basophils 0 0 - 2 % Absolute Neutrophil Count 10.70 (H) 1.8 - 7.0 K/UL Absolute Lymph Count 1.00 1.0 - 4.8 K/UL Absolute Monocyte Count 0.70 0 - 0.80 K/UL Absolute Eosinophil Count 0.00 0 - 0.45 K/UL Absolute Basophil Count 0.00 0 - 0.20 K/UL Specimen Performing Laboratory Blood [facility] [address] [place] [address] POC GLUCOSE (12/30/2017 2:03 AM) Component Value Ref Range Glucose, POC 140 (H) 70 - 100 MG/DL Specimen Performing Laboratory [facility] [address] [place] [address] POC GLUCOSE (12/30/2017 1:09 AM) Component Value Ref Range Glucose, POC 129 (H) 70 - 100 MG/DL Specimen Performing Laboratory [facility] [address] [place] [address] POC GLUCOSE (12/30/2017 12:17 AM) Component Value Ref Range Glucose, POC 150 (H) 70 - 100 MG/DL Specimen Performing Laboratory [facility] [address] [place] [address] POC GLUCOSE (12/29/2017 11:21 PM) Component Value Ref Range Glucose, POC 174 (H) 70 - 100 MG/DL Specimen Performing Laboratory [facility] [address] [place] [address] ECG-SCAN (12/29/2017 11:15 PM) Narrative Ordered by an unspecified provider. POC GLUCOSE (12/29/2017 10:12 PM) Component Value Ref Range Glucose, POC 170 (H) 70 - 100 MG/DL Specimen Performing Laboratory [facility] [address] [place] [address] POC GLUCOSE (12/29/2017 9:16 PM) Component Value Ref Range Glucose, POC 194 (H) 70 - 100 MG/DL Specimen Performing Laboratory [facility] [address] [place] [address] POC GLUCOSE (12/29/2017 8:13 PM) Component Value Ref Range Glucose, POC 160 (H) 70 - 100 MG/DL Specimen Performing Laboratory [facility] [address] [place] [address] POC GLUCOSE (12/29/2017 6:58 PM) Component Value Ref Range Glucose, POC 168 (H) 70 - 100 MG/DL Specimen Performing Laboratory [facility] [address] [place] [address] POC GLUCOSE (12/29/2017 6:01 PM) Component Value Ref Range Glucose, POC 202 (H) 70 - 100 MG/DL Specimen Performing Laboratory [facility] [address] [place] [address] POC GLUCOSE (12/29/2017 4:56 PM) Component Value Ref Range Glucose, POC 203 (H) 70 - 100 MG/DL Specimen Performing Laboratory [address] [address] POC GLUCOSE (12/29/2017 3:55 PM) Component Value Ref Range Glucose, POC 217 (H) 70 - 100 MG/DL Specimen Performing Laboratory [facility] [address] [place] [address] POC GLUCOSE (12/29/2017 3:12 PM) Component Value Ref Range Glucose, POC 230 (H) 70 - 100 MG/DL Specimen Performing Laboratory [address] [address] GLUCOSE,BG (12/29/2017 1:50 PM) Component Value Ref Range Glucose 228 (H) 70 - 100 MG/DL Specimen Performing Laboratory Blood [address] [address] HEMOGLOBIN & HEMATOCRIT, BG (12/29/2017 1:50 PM) Component Value Ref Range Hemoglobin BG 11.0 (L) 12.0 - 15.0 GM/DL Hematocrit BG 33.8 (L) 36 - 45 % Specimen Performing Laboratory Blood [facility] [address] [place] [address] SODIUM,BG (12/29/2017 1:50 PM) Component Value Ref Range Sodium 136 (L) 137 - 147 MMOL/L Specimen Performing Laboratory Blood [facility] [address] [place] [address] POTASSIUM, BG (12/29/2017 1:50 PM) Component Value Ref Range Potassium 4.3 3.5 - 5.1 MMOL/L Specimen Performing Laboratory Blood MAIN LAB [address] [place] [address] LACTIC ACID (BG - RAPID LACTATE) (12/29/2017 1:50 PM) Component Value Ref Range Lactic Acid,BG 1.2 0.5 - 2.0 MMOL/L Specimen Performing Laboratory Blood MAIN LAB [address] [place] [address] IONIZED CALCIUM,BG (12/29/2017 1:50 PM) Component Value Ref Range Ionized Calcium 1.12 1.0 - 1.3 MMOL/L Specimen Performing Laboratory Blood MAIN LAB [address] [place] [address] BLOOD GASES, ARTERIAL (12/29/2017 1:50 PM) Component Value Ref Range pH-Arterial 7.38 7.35 - 7.45 pCO2-Arterial 31 (L) 35 - 45 MMHG pO2-Arterial 192 (H) 80 - 100 MMHG Base Deficit-Arterial 5.9 MMOL/L O2 Sat-Arterial 99.6 (H) 95 - 99 % Ecxcmcdgwla-VSQ-Jkz 19.6 (L) 21 - 28 MMOL/L Specimen Performing Laboratory Blood, arterial - Blood MAIN LAB [address] [place] [address] BLOOD TYPE CONFIRMATION - ORDER ONLY IF REQUESTED BY LAB (12/29/2017 12:01 PM) Component Value Ref Range ABO/RH(D) A NEG Specimen Performing Laboratory Blood MAIN LAB [address] [place] [address] IR ARTERIOGRAM NEURO (12/29/2017 10:56 AM) Specimen [...] Neurointerventionalist:Ruben Helm MD Contrast - 200 cc [id number] Total mGy - 1821 Anesthesia: General endotracheal [...] establishing arterial access. RCCA Technique A 5 [place] 100 cm Vert catheter was advanced over a 150 cm 0.035 [place] wire over the aortic arch and into [...] under fluoroscopic and roadmap guidance over the [place] wire and images were obtained in biplane [...] Interface, Radiant Results - 12/29/2017 3:10 PM FOOD PRESERVATION SCIENTIST Cerebral Angiogram Indication - SAH Procedures Performed [...] Ruben Helm MD Contrast - 200 cc [id number] Total mGy - 1821 Anesthesia: General endotracheal [...] establishing arterial access. RCCA Technique A 5 [place] 100 cm Vert catheter was advanced over a 150 cm 0.035 [place] wire over the aortic arch and into [...] under fluoroscopic and roadmap guidance over the [place] wire and images were obtained in biplane [...] RUBEN HELM M.D. on 12/29/2017 1:16 PM. BLOOD GASES, ARTERIAL (12/29/2017 10:46 AM) Component Value Ref Range pH-Arterial 7.35 7.35 - 7.45 pCO2-Arterial 37 35 - 45 MMHG pO2-Arterial 167 (H) 80 - 100 MMHG Base Deficit-Arterial 4.8 MMOL/L O2 Sat-Arterial 99.3 (H) 95 - 99 % Hmtboqqdwhf-YVF-Raq 20.5 (L) 21 - 28 MMOL/L Specimen Performing Laboratory [facility]IN [facility] [address] [place] [address] TYPE & CROSSMATCH (12/29/2017 10:45 AM) Component Value Ref Range Units Ordered 2 Crossmatch Expires 01/01/2018 Record Check 2ND TYPE REQUIRED ABO/RH(D) A NEG Antibody Screen NEG Electronic Crossmatch YES Unit Number [id number] Blood Component Type RBC,ADSOL,LEUKO REDUCED Unit Division 0 Status OF Unit REL FROM ALLOC Transfusion Status OK TO TRANSFUSE Crossmatch Result COMPATIBLE,ELECTRONIC Unit Number [id number] Blood Component Type RBC,ADSOL,LEUKO REDUCED,2ND CONT. Unit Division 0 Status OF Unit REL FROM ALLOC Transfusion Status OK TO TRANSFUSE Crossmatch Result COMPATIBLE,ELECTRONIC Specimen Performing Laboratory Blood [facility]IN [facility] [address] [place] [address] CTA HEAD WO/W CONTR+POST PRO (12/29/2017 7:00 AM) Specimen Performing Laboratory [facility] RAD RESULTS Impressions Head CT: Diffuse subarachnoid hemorrhage and around the basal cisterns, and right sylvian fissure. Mild sulcal effacement, but no hydrocephalus or significant mass effect. CTA head: 1. 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 Given the hemorrhage in the anterior interhemispheric fissure, this aneurysm is felt to be the source of the subarachnoid hemorrhage. 2. 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 Finalized by Santi Winslow M.D. on 12/29/2017 8:35 AM. Dictated by Santi Winsolw M.D. on 12/29/2017 8:24 AM. Narrative Exam: CTA of the head. History: Subarachnoid hemorrhage. Comparison studies: None. Technique: Axial CT scan of the head was performed without contrast. After the administration of intravenous nonionic contrast, CTA of the head was performed , with postprocessed images obtained afterwards. Description: Head CT: There is subarachnoid hemorrhage within the basal cisterns, extending to the right sylvian fissure, and the anterior interhemispheric fissure inferiorly. This includes slight predominance in the anterior cistern on the right, and the quadrigeminal plate cistern. There is mild generalized sulcal effacement, most noted in the inferior aspect of the cerebral hemispheres. There is mild effacement of the right sylvian fissure. There is no obstructive hydrocephalus at this time. CTA head: There is a 6 to 7 mm aneurysm in the anterior communicating artery. This projects anteriorly, has a small, fingerlike point along the right lateral aspect near the base, possibly representing the site of rupture. The neck is moderate. 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 This projects inferiorly. It is elongated, and the base is moderate in size. The remainder of the intracranial vessels are generally unremarkable. There is a small amount of calcification within the cavernous segments bilaterally. The right vertebral artery terminates in PICA. The distal left vertebral artery, basilar artery, and posterior cerebral arteries are normal in contour and caliber. There is a widely patent right-sided posterior communicating artery. Procedure Note Interface, Radiant Results - 12/29/2017 8:39 AM FOOD PRESERVATION SCIENTIST Exam: CTA of the head. History: Subarachnoid hemorrhage. Comparison studies: None. Technique: Axial CT scan of the head was performed without contrast. After the administration of intravenous nonionic contrast, CTA of the head was performed, with postprocessed images obtained afterwards. Description: Head CT: There is subarachnoid hemorrhage within the basal cisterns, extending to the right sylvian fissure, and the anterior interhemispheric fissure inferiorly. This includes slight predominance in the anterior cistern on the right, and the quadrigeminal plate cistern. There is mild generalized sulcal effacement, most noted in the inferior aspect of the cerebral hemispheres. There is mild effacement of the right sylvian fissure. There is no obstructive hydrocephalus at this time. CTA head: There is a 6 to 7 mm aneurysm in the anterior communicating artery. This projects anteriorly, has a small, fingerlike point along the right lateral aspect near the base, possibly representing the site of rupture. The neck is moderate. 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 This projects inferiorly. It is elongated, and the base is moderate in size. The remainder of the intracranial vessels are generally unremarkable. There is a small amount of calcification within the cavernous segments bilaterally. The right vertebral artery terminates in PICA. The distal left vertebral artery, basilar artery, and posterior cerebral arteries are normal in contour and caliber. There is a widely patent right-sided posterior communicating artery. IMPRESSION Head CT: Diffuse subarachnoid hemorrhage and around the basal cisterns, and right sylvian fissure. Mild sulcal effacement, but no hydrocephalus or significant mass effect. CTA head: 1. 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 Given the hemorrhage in the anterior interhemispheric fissure, this aneurysm is felt to be the source of the subarachnoid hemorrhage. 2. 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 Finalized by Santi Winslow M.D. on 12/29/2017 8:35 AM. Dictated by Santi Winslow M.D. on 12/29/2017 8:24 AM. HEMOGLOBIN A1C (12/29/2017 5:44 AM) Component Value Ref Range Hemoglobin A1C 6.7 (H) 4.0 - 6.0 % Comment: The ADA recommends that most patients with type 1 and type 2 diabetes maintain an A1c level <7%. Specimen Performing Laboratory MAIN LAB [address] [place] [address] IONIZED CALCIUM (12/29/2017 5:44 AM) Component Value Ref Range Ionized Calcium 1.15 1.0 - 1.3 MMOL/L Specimen Performing Laboratory Blood MAIN LAB [address] [place] [address] LIPID PROFILE (12/29/2017 5:44 AM) Component Value Ref Range Cholesterol 111 <200 MG/DL Triglycerides 40 <150 MG/DL HDL 42 >40 MG/DL LDL 63 <100 MG/DL VLDL 8 MG/DL Non HDL Cholesterol 69 MG/DL Comment: Calculated non-HDL Cholesterol (non-HDL-C) indirectly measures LDL-C, Lp(a), IDL-C, and VLDL-C.It is a surrogate marker for Apoprotein B.Goal should be less than 130 mg/dL. Specimen Performing Laboratory Blood MAIN LAB [address] [place] [address] LACTIC ACID(LACTATE) (12/29/2017 5:44 AM) Component Value Ref Range Lactic Acid 1.7 0.5 - 2.0 MMOL/L Specimen Performing Laboratory Blood [facility] [address] [place] [address] PHOSPHORUS (12/29/2017 5:44 AM) Component Value Ref Range Phosphorus 3.2 2.0 - 4.0 MG/DL Specimen Performing Laboratory Blood MAIN LAB [address] [place] [address] MAGNESIUM (12/29/2017 5:44 AM) Component Value Ref Range Magnesium 1.5 (L) 1.6 - 2.6 mg/dL Specimen Performing Laboratory Blood MAIN LAB [address] [place] [address] COMPREHENSIVE METABOLIC PANEL (12/29/2017 5:44 AM) Component [...] questions. Specimen Performing Laboratory Blood MAIN LAB [address] [place] [address] PTT (APTT) (12/29/2017 5:44 AM) Component Value Ref Range APTT 24.8 21.0 - 39.0 SEC Specimen Performing Laboratory Blood MAIN LAB [address] [place] [address] PROTIME INR (PT) (12/29/2017 5:44 AM) Component Value Ref Range INR 1.1 0.8 - 1.2 Specimen Performing Laboratory Blood MAIN LAB [address] [place] [address] CBC AND DIFF (12/29/2017 5:44 AM) Component Value Ref Range White Blood Cells 7.9 4.5 - 11.0 K/UL RBC 3.69 (L) 4.0 - 5.0 M/UL Hemoglobin 11.1 (L) 12.0 - 15.0 GM/DL Hematocrit 32.0 (L) 36 - 45 % MCV 86.7 80 - 100 FL MCH 30.2 26 - 34 PG MCHC 34.8 32.0 - 36.0 G/DL RDW 13.9 11 - 15 % Platelet Count 137 (L) 150 - 400 K/UL MPV 6.8 (L) 7 - 11 FL Neutrophils 83 (H) 41 - 77 % Lymphocytes 13 (L) 24 - 44 % Monocytes 4 4 - 12 % Eosinophils 0 0 - 5 % Basophils 0 0 - 2 % Absolute Neutrophil Count 6.60 1.8 - 7.0 K/UL Absolute Lymph Count 1.00 1.0 - 4.8 K/UL Absolute Monocyte Count 0.30 0 - 0.80 K/UL Absolute Eosinophil Count 0.00 0 - 0.45 K/UL Absolute Basophil Count 0.00 0 - 0.20 K/UL Specimen Performing Laboratory Blood [facility] MAIN [facility] [address] [place] [address] in this encounter Visit Diagnoses Diagnosis Subarachnoid hemorrhage (HCC) - Primary Subarachnoid hemorrhage Diabetes (HCC) Type II or unspecified type diabetes mellitus without mention of complication, not stated as uncontrolled Hypertension Unspecified essential hypertension Admitting Diagnoses Diagnosis Ruptured Aneurysm Subarachnoid hemorrhage (HCC) Subarachnoid hemorrhage (HCC) Subarachnoid hemorrhage Administered Medications Inactive Administered Medications - up to 3 most recent administrations Medication Order MAR Action Action Date Dose Rate Site acetaminophen (TYLENOL) tablet 650 mg Given 01/12/2018 03:10 FOOD PRESERVATION SCIENTIST 650 mg 650 mg, Oral, EVERY 4 HOURS PRN, Starting Thu12/29/17 at 0311, Until Thu01/13/18 at 1244, Pain non-opioid: may be used alone or in combination with opioid analgesia, Temp > 38.5 C, TOTAL ACETAMINOPHEN DOSE NOT TO EXCEED 4GM DAILY Given 01/12/2018 13:56 FOOD PRESERVATION SCIENTIST 650 mg Given 01/12/2018 21:35 FOOD PRESERVATION SCIENTIST 650 mg ceFAZolin (ANCEF) IVP 1 g Given 12/30/2017 00:55 FOOD PRESERVATION SCIENTIST 1 g 1 g, Intravenous, EVERY 8 HOURS, 3 doses, First dose on Thu12/30/17 at 0000, Last dose on Thu12/30/17 at 1600, IV PUSH -- RECONSTITUTE each 1 g vial by adding 10 mL 0.9% NACL Given 12/30/2017 08:32 FOOD PRESERVATION SCIENTIST 1 g Given 12/30/2017 16:24 FOOD PRESERVATION SCIENTIST 1 g dexamethasone (DECADRON) injection 4 mg Given 12/31/2017 18:13 FOOD PRESERVATION SCIENTIST 4 mg 4 mg, Intravenous, 1 mL, Administer over 5 Minutes, EVERY 6 HOURS, 5 doses, First dose on Amy 12/31/17 at 0645, Last dose on Thu01/01/18 at 0600 Given 12/31/2017 23:54 FOOD PRESERVATION SCIENTIST 4 mg Given 01/01/2018 06:10 FOOD PRESERVATION SCIENTIST 4 mg DEXAMETHASONE SODIUM PHOSPHATE 4 MG/ML IJ SOLN (Cabinet Override) NOW, 1 dose, Amy 12/31/17 at 0645, Created by cabinet override docusate (COLACE) capsule 100 mg Given 12/30/2017 21:24 FOOD PRESERVATION SCIENTIST 100 mg 100 mg, Oral, TWICE DAILY, First dose on Thu12/29/17 at 0900, Until Discontinued, Hold for loose stools Given 12/31/2017 08:52 FOOD PRESERVATION SCIENTIST 100 mg Given 01/02/2018 20:40 FOOD PRESERVATION SCIENTIST 100 mg fentaNYL citrate PF (SUBLIMAZE) injection 25-50 Given 12/29/2017 05:34 FOOD PRESERVATION SCIENTIST 25 mcg mcg 25-50 mcg, Intravenous, EVERY 1 HOUR PRN, Starting Thu12/29/17 at 0312, Until Amy 12/31/17 at 0950, Pain Injectable fludrocortisone (FLORINEF) tablet 0.1 mg Given 01/07/2018 08:41 FOOD PRESERVATION SCIENTIST 0.1 mg 0.1 mg, Oral, TWICE DAILY, First dose on Thu01/05/18 at 0900, Until Discontinued Given 01/07/2018 21:32 FOOD PRESERVATION SCIENTIST 0.1 mg Given 01/08/2018 09:33 FOOD PRESERVATION SCIENTIST 0.1 mg glyBURIDE (DIABETA) tablet 2.5 mg Given 01/12/2018 08:11 FOOD PRESERVATION SCIENTIST 2.5 mg 2.5 mg, Oral, TWICE DAILY WITH MEALS, First dose on Thu01/10/18 at 2030, Until Discontinued Given 01/12/2018 18:23 FOOD PRESERVATION SCIENTIST 2.5 mg Given 01/13/2018 08:02 FOOD PRESERVATION SCIENTIST 2.5 mg heparin (porcine) PF syringe Given 01/12/2018 13:56 FOOD PRESERVATION SCIENTIST 5,000 Units Abdominal Tissue 5,000 Units 5,000 Units, Subcutaneous, EVERY 8 HOURS, First dose on Thu12/30/17 at 2200, Until Discontinued, NOTE: This is a HIGH ALERT Medication. Given 01/12/2018 21:33 FOOD PRESERVATION SCIENTIST 5,000 Units Abdomen:LLQ Given 01/13/2018 07:04 FOOD PRESERVATION SCIENTIST 5,000 Units Abdomen:RLQ hydrALAZINE (APRESOLINE) injection 10 mg Given 12/29/2017 07:58 FOOD PRESERVATION SCIENTIST 10 mg 10 mg, Intravenous, EVERY 6 HOURS PRN, Starting Thu12/29/17 at 0311, Until Thu12/29/17 at 0921, Systolic Blood Pressure..., >160 mmHg or MAP >110 mmHg or DBP >90 mmHg hydrALAZINE (APRESOLINE) injection 10 mg Given 12/29/2017 17:59 FOOD PRESERVATION SCIENTIST 10 mg 10 mg, Intravenous, EVERY 6 HOURS PRN, Starting Thu12/29/17 at 0921, Until Thu12/31/17 at 0946, Systolic Blood Pressure..., >140 mmHg or MAP >110 mmHg or DBP >90 mmHg hydrALAZINE (APRESOLINE) injection 10 mg Given 01/03/2018 03:25 FOOD PRESERVATION SCIENTIST 10 mg 10 mg, Intravenous, EVERY 6 HOURS PRN, Starting Thu01/01/18 at 1542, Until Amy 01/07/18 at 0848, Systolic Blood Pressure..., >180 mmHg or MAP >110 mmHg or DBP >90 mmHg insulin aspart (NOVOLOG FLEXPEN) Given 12/29/2017 17:05 FOOD PRESERVATION SCIENTIST 4 Units Arm, Left injection PEN 0-14 Units 0-14 Units, Subcutaneous, BEFORE MEALS AND AT BEDTIME, First dose on Thu12/29/17 at 0815, Until Discontinued, *Administer according to correction factor listed below at start of meal, 2100 and 0300. For patients who are not eating meals, administer appropriate correction factor as ordered at 03, 08, 12, 17, (Five times daily). *POC glucose 140-180mg/dL at 08, 12, 17 administer 2 units insulin, at 21, 03 administer 0 units. *POC glucose 181-220mg/dL at , , administer 4 units insulin, at 21, 03 administer 2 units. *POC glucose 221-260mg/dL at , , administer 6 units insulin, at 21, 03 administer 4 units. *POC glucose 261-300mg/dL at , , administer 8 units insulin, at 21, 03 administer 6 units. *POC glucose 301-350mg/dL at , 12, 17 administer 10 units insulin, at 21, 03 administer 8 units. *POC glucose 351-400mg/dL at 08, 12, 17 administer 12 units insulin, at 21, 03 administer 10 units. *POC glucose >400mg/dL at , , 17 administer 14 units insulin, at , 03 administer 12 units. *For POCT glucose >350 mg/dL give correction bolus and recheck POCT glucose in 2 hours. If POCT glucose at 2 hours >300mg/dL call physician for further orders. NOTE: This is a HIGH ALERT Medication. insulin aspart (NOVOLOG FLEXPEN) Given 12/30/2017 21:30 FOOD PRESERVATION SCIENTIST 4 Units Arm, Right injection PEN 0-14 Units 0-14 Units, Subcutaneous, FIVE TIMES DAILY, First dose on Thu12/30/17 at 1200, Until Discontinued, -POC glucose 140-180mg/dL at , , administer 2 units insulin, at 21, 03* administer 0 units. -POC glucose 181-220mg/dL at , , administer 4 units insulin, at , 03* administer 2 units. -POC glucose 221-260mg/dL at , , administer 6 units insulin, at , 03* administer 4 units. -POC glucose 261-300mg/dL at , , administer 8 units insulin, at , 03* administer 6 units. -POC glucose 301-350mg/dL at , , administer 10 units insulin, at , 03* administer 8 units. -POC glucose 351-400mg/dL at , , administer 12 units insulin, at , * administer 10 units. -POC glucose >400mg/dL at , , administer 14 units insulin, at , * administer 12 units. *only if ordered 5x's daily For POCT glucose >350mg/dL give correction bolus and recheck POCT glucose in 2 hours. If POCT glucose at 2 hours >300mg/dL call physician for further orders. For patients who are not eating meals, continue to administer the appropriate correction factor. NOTE: This is a HIGH ALERT Medication. Given 12/31/2017 03:05 FOOD PRESERVATION SCIENTIST 2 Units Arm, Right Given 12/31/2017 08:52 FOOD PRESERVATION SCIENTIST 2 Units Abdomen:RLQ insulin aspart (NOVOLOG FLEXPEN) Given 01/10/2018 17:22 FOOD PRESERVATION SCIENTIST 8 Units Abdominal Tissue injection PEN 0-28 Units 0-28 Units, Subcutaneous, BEFORE MEALS AND AT BEDTIME, First dose on Thu12/31/17 at 1100, Until Discontinued, -POC glucose 140-180mg/dL at , , administer 4 units insulin, at 21, 03* administer 0 units. -POC glucose 181-220mg/dL at , , administer 8 units insulin, at , 03* administer 4 units. -POC glucose 221-260mg/dL at , , administer 12 units insulin, at , * administer 8 units. -POC glucose 261-300mg/dL at , , administer 16 units insulin, at , 03* administer 12 units. -POC glucose 301-350mg/dL at , , administer 20 units insulin, at , * administer 16 units. -POC glucose 351-400mg/dL at , , administer 24 units insulin, at , * administer 20 units. -POC glucose >400mg/dL at , , administer 28 units insulin, at , * administer 24 units. *only if ordered 5x's daily For POCT glucose >350mg/dL give correction bolus and recheck POCT glucose in 2 hours. If POCT glucose at 2 hours >300mg/dL call physician for further orders. For patients who are not eating meals, continue to administer the appropriate correction factor. NOTE: This is a HIGH ALERT Medication. Given 01/11/2018 08:26 FOOD PRESERVATION SCIENTIST 8 Units Arm, Right Given 01/12/2018 12:13 FOOD PRESERVATION SCIENTIST 4 Units Arm, Right insulin glargine (LANTUS SOLOSTAR, Given 01/05/2018 12:34 FOOD PRESERVATION SCIENTIST 10 Units Arm , Right BASAGLAR) injection PEN 10 Units 10 Units, Subcutaneous, DAILY, First dose on Thu01/05/18 at 1200, Until Discontinued, Continue if NPO. DO NOT mix with other insulins -- Do not mix with other insulins -- NOTE: This is a HIGH ALERT Medication. Given 01/06/2018 11:13 FOOD PRESERVATION SCIENTIST 10 Units Abdomen:LLQ insulin glargine (LANTUS SOLOSTAR, Given 01/08/2018 17:44 FOOD PRESERVATION SCIENTIST 16 Units Arm , Right BASAGLAR) injection PEN 16 Units 16 Units, Subcutaneous, DAILY, First dose on Thu01/08/18 at 1800, Until Discontinued, Continue if NPO. DO NOT mix with other insulins -- Do not mix with other insulins -- NOTE: This is a HIGH ALERT Medication. insulin glargine (LANTUS SOLOSTAR, Given 01/09/2018 18:05 FOOD PRESERVATION SCIENTIST 18 Units Arm , Right BASAGLAR) injection PEN 18 Units 18 Units, Subcutaneous, DAILY, First dose on 01/09/18 at 1800, Until Discontinued, Continue if NPO. DO NOT mix with other insulins -- Do not mix with other insulins -- NOTE: This is a HIGH ALERT Medication. Given 01/10/2018 17:22 FOOD PRESERVATION SCIENTIST 18 Units Abdominal Tissue insulin glargine (LANTUS SOLOSTAR, Given 01/07/2018 11:54 FOOD PRESERVATION SCIENTIST 20 Units Arm , Left BASAGLAR) injection PEN 20 Units 20 Units, Subcutaneous, DAILY, First dose on Amy 01/07/18 at 1200, Until Discontinued, Continue if NPO. DO NOT mix with other insulins -- Do not mix with other insulins -- NOTE: This is a HIGH ALERT Medication. insulin regular (NOVOLIN R) Dose/Rate Change 12/30/2017 00:23 FOOD PRESERVATION SCIENTIST 2 Units/hr 2 mL/hr 100 Units in sodium chloride 0.9% (NS) 100 mL IV drip (std conc) 1-32 Units/hr (1-32 mL/hr) 100 mL, at 1-32 mL/hr, Intravenous, TITRATE DIRECTED , Starting 12/29/17 at 1730, Until Thu12/30/17 at 0859, (Administration Instructions were omitted from this summary because they were too long) Dose/Rate Change 12/30/2017 01:11 FOOD PRESERVATION SCIENTIST 1.5 Units/hr 1.5 mL/hr Dose/Rate Verify 12/30/2017 07:27 FOOD PRESERVATION SCIENTIST 1.5 Units/hr 1.5 mL/hr iopamidol 300 (ISOVUE-300) injection 250 mL Given 12/29/2017 11:00 FOOD PRESERVATION SCIENTIST 250 mL 250 mL, Intra-arterial, ONCE, 1 dose, 12/29/17 at 1100, NOTE: This is a HIGH ALERT Medication. iopamidol 370 (ISOVUE-370) injection 55 mL Given 12/30/2017 04:30 FOOD PRESERVATION SCIENTIST 55 mL 55 mL, Intravenous, ONCE, 1 dose, 12/30/17 at 0430, NOTE: This is a HIGH ALERT Medication. iopamidol 370 (ISOVUE-370) injection 60 mL Given 12/29/2017 07:15 FOOD PRESERVATION SCIENTIST 60 mL 60 mL, Intravenous, ONCE, 1 dose, 12/29/17 at 0715, NOTE: This is a HIGH ALERT Medication. labetalol (NORMODYNE) injection 10-20 mg Given 12/29/2017 05:21 FOOD PRESERVATION SCIENTIST 10 mg 10-20 mg, Intravenous, EVERY 15 MIN PRN, Starting Thu12/29/17 at 0311, Until Thu12/29/17 at 0921, Other..., For SBP > 160 mmHg or MAP > 110 mmHg OR DBP >90 mmHg, Hold for HR < 60/min and/or MAP < 110 mmHg or SBP < 160 mmHg or DBP <90 mmHg. labetalol (NORMODYNE) injection 10-20 mg Given 12/30/2017 19:05 FOOD PRESERVATION SCIENTIST 10 mg 10-20 mg, Intravenous, EVERY 15 MIN PRN, Starting Thu12/29/17 at 0921, Until Amy 12/31/17 at 0946, Other..., For SBP > 140 mmHg or MAP > 110 mmHg OR DBP >90 mmHg, Hold for HR < 60/min and/or MAP < 110 mmHg or SBP < 160 mmHg or DBP <90 mmHg. lactated ringers infusion Given - New Bag 12/30/2017 05:48 FOOD PRESERVATION SCIENTIST 1,000 mL 100 mL/hr 1,000 mL, 1,000 mL, Intravenous, at 100 mL/hr, CONTINUOUS, Starting Thu12/30/17 at 0530, Until Thu12/30/17 at 0647 lactated ringers infusion Given - New Bag 12/30/2017 07:30 FOOD PRESERVATION SCIENTIST 1,000 mL 100 mL/hr 1,000 mL, 1,000 mL, Intravenous, at 100 mL/hr, ONCE, 1 dose, Thu12/30/17 at 0600 lactated ringers infusion Given - New Bag 01/01/2018 06:54 FOOD PRESERVATION SCIENTIST 500 mL 125 mL/hr 1,000 mL, 500 mL, Intravenous, at 125 mL/hr, ONCE, 1 dose, Thu01/01/18 at 0700 lactated ringers infusion Infusion Restarted 01/02/2018 12:15 FOOD PRESERVATION SCIENTIST 1,000 mL 60 mL/hr 1,000 mL, 1,000 mL, Intravenous, at 60 mL/hr, CONTINUOUS, Starting 01/02/18 at 0900, Until Thu01/04/18 at 0822 Given - New Bag 01/03/2018 03:24 FOOD PRESERVATION SCIENTIST 1,000 mL 60 mL/hr Given - New Bag 01/03/2018 23:46 FOOD PRESERVATION SCIENTIST 1,000 mL 60 mL/hr LACTATED RINGERS IV SOLP (Cabinet Override) NOW, 1 dose, Thu01/01/18 at 0700, Created by cabinet override levETIRAcetam (KEPPRA) tablet 500 mg Given 01/11/2018 08:26 FOOD PRESERVATION SCIENTIST 500 mg 500 mg, Oral, TWICE DAILY, 27 doses, First dose on Thu12/30/17 at 0900, Last dose on Thu01/12/18 at 0900 Given 01/11/2018 21:35 FOOD PRESERVATION SCIENTIST 500 mg Given 01/12/2018 08:11 FOOD PRESERVATION SCIENTIST 500 mg levETIRAcetam in NaCl (iso-os) (KEPPRA) Given - New Bag 12/29/2017 20:19 FOOD PRESERVATION SCIENTIST 500 mg IVPB (premade) 500 mg 100 mL 500 mg, 100 mL, Administer over 15 Minutes, Intravenous, TWICE DAILY, First dose on Thu12/29/17 at 0900, Until Discontinued magnesium sulfate 1 g/D5W 100 Given - New Bag 01/07/2018 05:26 FOOD PRESERVATION SCIENTIST 1 g 100 mL/hr mL IVPB 1 g, Intravenous, 100 mL, Administer over 1 Hours, NEEDED, Starting Thu12/29/17 at 0413, Until Thu01/07/18 at 0848, Other..., magnesium replacement (see Admin Instructions), If urine output < 30 mL/hr or SCr >2 mg/dL, check with physician prior to giving magnesium replacement. - For Serum Magnesium > 2.1 mg/dL, No replacement necessary. - For Serum Magnesium 1.8 - 2.0 mg/dL, give Magnesium Sulfate 2 grams IV over 2 hours. - For Serum Magnesium 1.6 - 1.7 mg/dL, give Magnesium Sulfate 3 grams IV over 3 hours. - For Serum Magnesium 1.3 - 1.5 mg/dL, give Magnesium Sulfate 4 grams IV over 4 hours. - For Serum Magnesium <=1.2 mg/dL, give Magnesium Sulfate 6 grams IV over 6 hours AND notify physician. Recheck serum magnesium level 4 hours after completion of appropriate replacement dose. Repeat this standing order x 1. Notify physician if serum magnesium < 2.1 mg/dL after two replacements. Infuse each 1gm Magnesium sulfate over 1 hour. Each 1 gm delivers 8.1 mEq Magnesium. Given - New Bag 01/07/2018 05:29 FOOD PRESERVATION SCIENTIST 1 g 100 mL/hr Given - New Bag 01/07/2018 06:48 FOOD PRESERVATION SCIENTIST 1 g 100 mL/hr melatonin tablet 3 mg Given 01/04/2018 20:10 FOOD PRESERVATION SCIENTIST 3 mg 3 mg, Oral, AT BEDTIME DAILY, First dose on 01/03/18 at 2100, Until Discontinued Given 01/05/2018 21:54 FOOD PRESERVATION SCIENTIST 3 mg Given 01/06/2018 21:59 FOOD PRESERVATION SCIENTIST 3 mg melatonin tablet 5 mg Given 01/09/2018 21:00 FOOD PRESERVATION SCIENTIST 5 mg 5 mg, Oral, AT BEDTIME DAILY, First dose on Amy 01/07/18 at 2100, Until Discontinued Given 01/11/2018 21:35 FOOD PRESERVATION SCIENTIST 5 mg Given 01/12/2018 21:34 FOOD PRESERVATION SCIENTIST 5 mg metFORMIN (GLUCOPHAGE) tablet 500 mg Given 01/12/2018 08:11 FOOD PRESERVATION SCIENTIST 500 mg 500 mg, Oral, TWICE DAILY WITH MEALS, First dose on 01/10/18 at 2030, Until Discontinued Given 01/12/2018 18:23 FOOD PRESERVATION SCIENTIST 500 mg Given 01/13/2018 08:03 FOOD PRESERVATION SCIENTIST 500 mg methyldopa (ALDOMET) tablet 250 mg Given 01/12/2018 08:10 FOOD PRESERVATION SCIENTIST 250 mg 250 mg, Oral, TWICE DAILY, First dose on Thu12/30/17 at 1015, Until Discontinued Given 01/12/2018 21:34 FOOD PRESERVATION SCIENTIST 250 mg Given 01/13/2018 08:02 FOOD PRESERVATION SCIENTIST 250 mg milk of magnesia (CONC) oral suspension 10 mL Given 12/31/2017 08:52 FOOD PRESERVATION SCIENTIST 10 mL 10 mL, Oral, DAILY, First dose on Thu12/29/17 at 0900, Until Discontinued, May hold if BM within 24 hours of dose. 10 mL CONC=30 mL MOM modafinil (PROVIGIL) tablet 100 mg Given 01/02/2018 12:09 FOOD PRESERVATION SCIENTIST 100 mg 100 mg, Oral, DAILY, First dose on 01/02/18 at 1200, Until Discontinued Given 01/03/2018 08:29 FOOD PRESERVATION SCIENTIST 100 mg Given 01/04/2018 08:00 FOOD PRESERVATION SCIENTIST 100 mg niMODipine (NIMOTOP) capsule 60 mg Given 12/30/2017 23:54 FOOD PRESERVATION SCIENTIST 60 mg 60 mg, Oral, EVERY 4 HOURS, 126 doses, First dose on Thu12/30/17 at 0400, Last dose on Thu01/20/18 at 0000 Given 12/31/2017 05:00 FOOD PRESERVATION SCIENTIST 60 mg Given 12/31/2017 07:52 FOOD PRESERVATION SCIENTIST 60 mg niMODipine (NIMOTOP) capsule 60 mg Given 01/12/2018 21:33 FOOD PRESERVATION SCIENTIST 60 mg 60 mg, Oral, EVERY 4 HOURS, 85 doses, First dose on Thu01/06/18 at 0200, Last dose on Thu01/20/18 at 0200 Given 01/13/2018 02:43 FOOD PRESERVATION SCIENTIST 60 mg Given 01/13/2018 07:05 FOOD PRESERVATION SCIENTIST 60 mg niMODipine (NYMALIZE) 3 mg/ mL solution 60 mg Given 12/29/2017 20:19 FOOD PRESERVATION SCIENTIST 60 mg 60 mg, Feeding Tube, EVERY 4 HOURS, 126 doses, First dose on Thu12/29/17 at 0400, Last dose on Thu01/19/18 at 0000, Hold for SBP < 100 mmHg niMODipine (NYMALIZE) 3 mg/ mL solution 60 mg Given 12/31/2017 12:00 FOOD PRESERVATION SCIENTIST 60 mg 60 mg, Oral, EVERY 4 HOURS, First dose on Thu12/31/17 at 1200, Until Discontinued niMODipine (NYMALIZE) 3 mg/ mL solution 60 mg Given 01/05/2018 12:34 FOOD PRESERVATION SCIENTIST 60 mg 60 mg, Oral, EVERY 4 HOURS, 117 doses, First dose on Thu12/31/17 at 1600, Last dose on Thu01/20/18 at 0000 Given 01/05/2018 16:30 FOOD PRESERVATION SCIENTIST 60 mg Given 01/05/2018 21:53 FOOD PRESERVATION SCIENTIST 60 mg oxyCODONE (ROXICODONE, OXY-IR) tablet 5 mg Given 01/05/2018 02:10 FOOD PRESERVATION SCIENTIST 5 mg 5 mg, Oral, EVERY 4 HOURS PRN, Starting Thu01/03/18 at 0900, Until Thu01/13/18 at 1244, Pain PO Given 01/08/2018 22:30 FOOD PRESERVATION SCIENTIST 5 mg Given 01/10/2018 17:20 FOOD PRESERVATION SCIENTIST 5 mg oxyCODONE (ROXICODONE, OXY-IR) tablet 5-15 mg Given 12/31/2017 23:11 FOOD PRESERVATION SCIENTIST 10 mg 5-15 mg, Oral, EVERY 4 HOURS PRN, Starting Thu12/29/17 at 1605, Until Thu01/03/18 at 0813, Pain PO Given 01/01/2018 20:05 FOOD PRESERVATION SCIENTIST 10 mg Given 01/03/2018 05:08 FOOD PRESERVATION SCIENTIST 10 mg potassium chloride SR (K-DUR) tablet 40-60 mEq Given 12/30/2017 04:44 FOOD PRESERVATION SCIENTIST 40 mEq 40-60 mEq, Oral, NEEDED, Starting e 12/29/17 at 0412, Until Amy 01/07/18 at 0848, Other..., For potassium replacement, See admin instructions, If urine output < 30 mL/hr or SCr >2 mg/dL, check with physician prior to giving K+ replacement. - K 3-4 mmol/L, administer KCl 40 mEq PO/NG x1 dose - K 2.5-2.9 mmol/L, administer KCl 60 mEq PO/NG x1 dose AND notify physician for additional dosing - K < 2.5 mmol/L notify physician for dosing Recheck serum potassium two hours after completion of appropriate replacement dose. Repeat this standing order x 2. Notify physician if serum potassium < 3.3 mmol/L after three replacements. Do NOT break or crush tablet Given 12/30/2017 12:47 FOOD PRESERVATION SCIENTIST 40 mEq risperiDONE (RISPERDAL) tablet 0.5 mg Given 01/04/2018 23:24 FOOD PRESERVATION SCIENTIST 0.5 mg 0.5 mg, Oral, ONCE, 1 dose, 01/04/18 at 2300 senna/docusate (SENOKOT-S) tablet 1 tablet Given 12/30/2017 21:24 FOOD PRESERVATION SCIENTIST 1 tablet 1 tablet, Oral, TWICE DAILY, First dose on Thu12/29/17 at 0900, Until Discontinued, Hold for loose stools. If patient unable to take tablet, give 10 mL of senna/docusate (SENOKOT-S) solution. Send [employer] message to pharmacy. Given 12/31/2017 08:52 FOOD PRESERVATION SCIENTIST 1 tablet Given 01/02/2018 20:40 FOOD PRESERVATION SCIENTIST 1 tablet sodium chloride 0.9 % infusion Given - New Bag 12/29/2017 05:33 FOOD PRESERVATION SCIENTIST 75 mL/hr 1,000 mL, Intravenous, at 75 mL/hr, CONTINUOUS, Starting Thu12/29/17 at 0315, Until Tu12/29/17 at 1737 Given - New Bag 12/29/2017 08:34 FOOD PRESERVATION SCIENTIST sodium chloride 0.9 % infusion Given - New Bag 12/29/2017 08:41 FOOD PRESERVATION SCIENTIST 250 mL, 250 mL, Intravenous, at 0-300 mL/hr, CONTINUOUS, Starting Thu12/29/17 at 0615, Until Thu12/30/17 at 0855, Replace negative fluid balance 1:1 to maintain net zero. Given - New Bag 12/29/2017 11:20 FOOD PRESERVATION SCIENTIST Given - New Bag 12/30/2017 00:55 FOOD PRESERVATION SCIENTIST 250 mL 300 mL/hr sodium chloride 0.9 % infusion Given - New Bag 01/06/2018 09:00 FOOD PRESERVATION SCIENTIST 730 mL 1,000 mL, Intravenous, EVERY 4 HOURS, First dose on Thu01/06/18 at 0845, Until Discontinued, PRN Q 4 hrs for 1:1 fluid replacement Given - New Bag 01/07/2018 03:01 FOOD PRESERVATION SCIENTIST 560 mL sodium chloride 0.9 % infusion Given - New Bag 01/08/2018 09:37 FOOD PRESERVATION SCIENTIST 500 mL 500 mL, 500 mL, Intravenous, BOLUS, 1 dose, Thu01/08/18 at 0900 sodium chloride PF 0.9% injection 50 mL Given 12/29/2017 07:15 FOOD PRESERVATION SCIENTIST 50 mL 50 mL, Intravenous, ONCE, 1 dose, Thu12/29/17 at 0715, Intra-procedure (IR) sodium chloride PF 0.9% injection 50 mL Given 12/30/2017 04:30 FOOD PRESERVATION SCIENTIST 50 mL 50 mL, Intravenous, ONCE, 1 dose, Thu12/30/17 at 0430, Intra-procedure (IR) sodium chloride(#) inj for po solution 34 mEq Given 01/09/2018 18:01 FOOD PRESERVATION SCIENTIST 34 mEq 34 mEq, Oral, EVERY 6 HOURS, First dose on Thu01/03/18 at 1200, Until Discontinued Given 01/09/2018 23:44 FOOD PRESERVATION SCIENTIST 34 mEq Given 01/10/2018 05:42 FOOD PRESERVATION SCIENTIST 34 mEq sodium chloride(#) inj for po solution 34 mEq Given 01/12/2018 08:11 FOOD PRESERVATION SCIENTIST 34 mEq 34 mEq, Oral, EVERY 12 HOURS, First dose on Thu01/11/18 at 2100, Until Discontinued Given 01/12/2018 21:41 FOOD PRESERVATION SCIENTIST 34 mEq Given 01/13/2018 09:52 FOOD PRESERVATION SCIENTIST 34 mEq
--- OUTSIDE RECORDS SUMMARY | 2018-01-13 17:03 | External Medical Summary | Encounter Summary ---
:1945 Author Organization [facility] Address [address] [facility] [address] [place] [address] Phone Care Team Providers Name Role Phone Pastor Fatima MD Primary Care Provider Encounter Details Date Type Department Care Team Description 12/29/2017 Procedure Pass [id number] [place] [address] Social History Tobacco Use Types Packs/Day Years Used Date Former Smoker Smokeless Tobacco: Never Used Alcohol Use Drinks/Week oz/Week Comments No Sex Assigned at Date Recorded Not on file as of this encounter Plan of Treatment Not on fileas of this encounter Visit Diagnoses Not on filein this encounter
--- OUTSIDE RECORDS SUMMARY | 2018-01-13 17:04 | External Medical Summary | Encounter Summary ---
:1945 Author Organization [facility] Address [address] [facility] [address] [place] [address] Phone Care Team Providers Name Role Phone Pastor Fatima MD Primary Care Provider Encounter Details Date Type Department Care Team Description 12/29/2017 Procedure Pass [facility] Operating Room [address] [place] [address] Social History Tobacco Use Types Packs/Day Years Used Date Never Assessed Sex Assigned at Date Recorded Not on file as of this encounter Plan of Treatment Not on fileas of this encounter Visit Diagnoses Not on filein this encounter
--- OUTSIDE RECORDS SUMMARY | 2018-01-13 17:04 | External Medical Summary | Encounter Summary ---
:1945 Author Organization [facility] Address [address] [facility] [address] [place] [address] Phone Care Team Providers Name Role Phone Pastor Fatima MD Primary Care Provider Reason for Visit Auth/Cert Status Reason Specialty Diagnoses / Procedures Referred By Contact Referred To Contact Diagnoses Subarachnoid hemorrhage (HCC) Ruptured Aneurysm Subarachnoid hemorrhage (HCC) Encounter Details Date Type Department Care Team Description 12/29/2017 Anesthesia CA Operating Room Lul Smith MD [address] [facility] [address] [place] [address] [place], [place] [id number] Anesthesia Record Procedure Summary Procedure Name Responsible Anesthesia Start Anesthesia Stop Anesthesiologist Time Time REPAIR ANEURYSM Lul Smith MD 12/29/17 1119 12/29/17 1651 CRANIOTOMY (Left Head) Events Date Time Event Comment 12/29/2017 1119 Anes Start 1119 An Induction The patient was reevaluated immediately before moderate or deep sedation use and before anesthesia induction. Pt received sedated intubated from IR 1120 Quick Note Data from physiologic monitors from in-room time until 11:51 recorded on anesthesia record from IR procedure of the same day, please see that record for details of that time period 1206 Antibiotic Given 1209 Proc Start 1349 Stat Labs Drawn ETCO2 28mmHg 1408 Quick Deana Smith updated on lab results. 1454 Temporary Clip On 1459 Temporary Clip Off 1504 Anes Handoff Luis to Brock 1513 Quick Note Fsbs 230 1555 Quick Note Fsbs 217 1635 An Extubation Pt w/ Sv, soft bite blocks in place, TV> 350 extubated to NSICU on O2 via simple mask 1637 an stop data 1638 Transport Pt on monitor for transport to NSICU 1649 Handoff to RN I completed my SBAR handoff to the receiving nurse. 1651 An Stop Name Total dexamethasone (DECADRON) 4 mg/mL injection 6 mg propofol (DIPRIVAN) infusion 3,015.5 mg remifentanil (ULTIVA) 1 mg/3 mL 1,000 mcg in sodium chloride 0.9% (NS) 2, 376.56 mcg 20 mL Injection phenylephrine (LYDIA-SYNEPHRINE) 0.1 mg/mL injection (SYRINGE) 200 mcg mannitol (OSMITROL) 20 % infusion 50 g levETIRAcetam (KEPPRA) 1,000 mg in sodium chloride 0.9% (NS) 100 mL IVPB 1, 000 mg phenylephrine (LYDIA-SYNEPHRINE) 10 mg in sodium chloride 0.9% (NS) 250 mL 13.9 mg IV drip (std conc) ceFAZolin (ANCEF) injection 4 g insulin regular (NOVOLIN R) 100 Units in sodium chloride 0.9% (NS) 100 14.2 Units mL IV drip (std conc) indocyanine green (ICY-GREEN) injection 25 mg acetaminophen (OFIRMEV) 1,000 mg injection 1,000 mg labetalol (NORMODYNE; TRANDATE) 5mg/mL 20 mg injection (SYRINGE) 10 mg sodium chloride 0.9 % infusion 1,000 mL sodium chloride 0.9 % infusion (1000 mL bag) 800 mL sodium chloride 0.9 % infusion 1,000 mL electrolyte-A (PLASMA-LYTE A PH 7.4) infusion 500 mL Agents Name O2 N2O Inspired Air Blood No blood administrations on file. Lines, Drains, and Airways Type Details Placement Removal Wounds (NOT for 12/29/17; 0510; Left; 12/29/17 0510 by Pressure Injuries) Back; Abrasion; and Malathi Peterson RN Bruise from fall Wounds (NOT for 12/29/17; 1445; Left; 12/29/17 1445 by Pressure Injuries) Head; Surgical Brittney Schwab RN Incision; INCISION CLOSED WITH SUTURES. DRESSING OF BACITRACIN, XEROFORM AND TELFA APPLIED. Peripheral IV PreHospital Outside 12/29/17 0510 by 12/29/17 2216 by Facility; R; Hand; 20 Kreszyn, Dejah, G; Dislodgement; RN 12/29/17; 2216 Peripheral IV 12/29/17; 0539; RN; L; 12/29/17 0539 by 12/30/17 0645 by Hand; 22 G; 1; Dejah Portillo, Dejah Ward, Dislodgement; 12/30/17; RN 0645 ETT 12/29/17; 0846; 12/29/17 0846 by 12/29/17 1635 by Ventilated by mask (1); Michael Posada SRNA [place], [place], Direct laryngoscopy, NURSING RESIDENT Stylet; Single-Lumen, Cuffed; 7mm; Mac; 3; Oral; 1-Full view of the glottis; 1 insertion attempt; Auscultation, ETCO2 Detector; 21 centimeters; Intubation by Dr. Vee. Atraumatic; dentition unchanged from pre-op; 12/29/17; 1635 Arterial Line 12/29/17; 0856 (created 12/29/17 0856 by 12/30/17 0216 by via procedure Lul Vee MD Kreszyn, Dejah, documentation); L; RN Radial; 20 G; 12/30/17; 0216 Indwelling Urinary 12/29/17; 0905; Unit 12/29/17 0905 by 12/30/17 1100 by Catheter (Comment); 12/30/17; Rory Palma, Chantal Limon, 1100 RN Wounds (NOT for 12/29/17; 1047; 12/29/17 1047 by 01/05/181999 by Pressure Injuries) Anterior; Groin; Rory Palma, Montez Moon, ERMELINDA Puncture Wound; Arterial access; 01/05/18; 1999 Peripheral IV 12/29/17; 1119; 12/29/17 1119 by 12/30/17 0352 by Provider (Placed by Shaneka Leone Kreszyn, Katelynn, Mariusz); R; Inner; NURSING RESIDENT RN Forearm; 18 G; 1; Dislodgement; 12/30/17; 0352 in this encounter Social History Tobacco Use Types Packs/Day Years Used Date Never Assessed Sex Assigned at Date Recorded Not on file as of this encounter OR Notes Anesthesia Postprocedure Evaluation - Kyle Gutiérrez MD - 12/29/2017 4:52 PM CSTFormatting of this note may be different from the original. Post-Anesthesia Evaluation Name: Yarely Dillon : 1945 Age: 72 y.o. Sex: female Procedure Date: 12/29/2017 Procedure: Procedure(s): REPAIR ANEURYSM CRANIOTOMY Surgeon: Surgeon(s): MD Tiffanie Glaser MD Paige Lundy, MD Kyle A Smith, MD Post-Anesthesia Vitals BP: 133/93 (12/29 164) Temp: 36.4 C (97.5 F) (12/29 1644) Pulse: 82 (12/29 164) Respirations: 16 PER MINUTE (12/29 1644) SpO2: 97 % (12/29 1644) O2 Delivery: Simple Mask (12/29 1644) SpO2 Pulse: 83 (12/29 1644) Post Anesthesia Evaluation Note Evaluation location: ICU Patient participation: Note status: Pt localizes pain and noxious stimuli Moved left foot when askedto wiggle toes does not squeeze hands on command. Pain score: 0 Pain management: adequate Hydration: normovolemia Temperature: 36.0C - 38.4C Airway patency: adequate Perioperative Events Perioperative events: no Post-op nausea and vomiting: no PONV Postoperative Status Cardiovascular status: hemodynamically stable Respiratory status: spontaneous ventilation and supplemental oxygen (6L) Additional comments: Ventilator settings: N/A Vasoactive Drips: N/A Blood products/Hemostatic Agents/Anticoagulants: N/A Special Considerations: NSICU patient. ICP lowering techniques used intraoperatively: mannitol and hyperventilation Antiepileptics: Yes - Drug/Dose/Timing: Keppra 1gm 1200. Patient was transported with supplemental oxygen and routine cardiovascular monitoring, including pulse oximetry. Individuals present during transport includeMarquis Malloy, YUNI, Dr. Gutiérrez, and neuroresident The patient was admitted to the ICU under care of the critical care team. This information was communicated between anesthesia and the receiving team. Perioperative Events Perioperative Event: No Emergency Case Activation: No ATTESTATION Post-Anesthesia Evaluation and ICU Transfer Note Attestation: I evaluated the patient and the indicated post-anesthesia care is discharge and transfer to the ICU physician-lead team. Staff name: Kyle Gutiérrez MD Date: 12/29/2017 Anesthesia Preprocedure Evaluation - Lul Smith MD - 12/29/2017 11:15 AM [employer] Formatting of this note may be different from the original. Anesthesia Pre-Procedure Evaluation Name: Yarely Dillon : 1945 Age: 72 y.o. Sex: female Procedure Date: 12/29/2017 Procedure: Procedure(s): REPAIR ANEURYSM CRANIOTOMY Physical Assessment Vital Signs (last filed in past 24 hours): BP: 168/63 (12/29 0630) Temp: 36.6 C (97.9 F) (12/29 0510) Pulse: 88 (12/29 799) Respirations: 12 PER MINUTE (12/29 799) SpO2: 98 % (12/29 799) O2 Delivery: None (Room Air) (12/29 799) Patient History Allergies Allergen Reactions Codeine UNKNOWN Penicillins UNKNOWN Current Medications Medication Directions glyBURIDE-metformin (GLUCOVANCE) 2.5-500 mg tablet Take 1 tablet by mouth twice daily. Take with food. methyldopa (ALDOMET) 250 mg tablet Take 250 mg by mouth twice daily. spironolactone-hydrochlorothiazide (ALDACTAZIDE) 25-25 mg tablet Take 1 tablet by mouth every morning. Review of Systems/Medical History Patient summary reviewed Pertinent labs reviewed PONV Screening: Female gender No history of anesthetic complications No family history of anesthetic complications Pulmonary - negative Cardiovascular Exercise tolerance: >4 METS Beta Ricardo therapy: No Beta blockers within 24 hours: No Hypertension, poorly controlled GI/Hepatic/Renal Nausea Neuro/Psych Pt presents with SAH. Heading to IR for clipping or coiling. Endocrine/Other Diabetes, type 2 Physical Exam Airway Findings Mallampati: III TM distance: <3 FB Neck ROM: full Mouth opening: good Airway patency: adequate Dental Findings: Negative Cardiovascular Findings: Rhythm: regular Rate: normal Pulmonary Findings: Negative Breath sounds clear to auscultation. Abdominal Findings: Obese Neurological Findings: Comments: Alert, awake, responding appropriately Diagnostic Tests Hematology: Lab Results Component Value Date HGB 11.1 12/29/2017 HCT 32.0 12/29/2017 PLTCT 137 12/29/2017 WBC 7.9 12/29/2017 NEUT 83 12/29/2017 ANC 6.60 12/29/2017 ALC 1.00 12/29/2017 MADDIE 4 12/29/2017 AMC 0.30 12/29/2017 EOSA 0 12/29/2017 ABC 0.00 12/29/2017 MCV 86.7 12/29/2017 MCH 30.2 12/29/2017 MCHC 34.8 12/29/2017 MPV 6.8 12/29/2017 RDW 13.9 12/29/2017 General Chemistry: Lab Results Component Value Date NA 137 12/29/2017 K 4.6 12/29/2017 CL 108 12/29/2017 CO2 22 12/29/2017 GAP 7 12/29/2017 BUN 18 12/29/2017 CR 0.83 12/29/2017 GLU 252 12/29/2017 CA 8.8 12/29/2017 ALBUMIN 3.6 12/29/2017 LACTIC 1.7 12/29/2017 OBSCA 1.15 12/29/2017 MG 1.5 12/29/2017 TOTBILI 0.4 12/29/2017 PO4 3.2 12/29/2017 Coagulation: Lab Results Component Value Date PTT 24.8 12/29/2017 INR 1.1 12/29/2017 Anesthesia Plan ASA score: 3 emergent Plan: general and invasive monitoring Induction method: intravenous NPO status: acceptable Comments: (Patient will be transferred directly from Neuro IR (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 Will need large IV) Informed Consent Anesthetic plan and risks discussed with patient. Use of blood products discussed with patient; consented to blood products. Plan discussed with: anesthesiologist and NURSING RESIDENT. in this encounter Plan of Treatment Not on fileas of this encounter Visit Diagnoses Not on filein this encounter Administered Medications Inactive Administered Medications - up to 3 most recent administrations Medication Order MAR Action Action Date Dose Rate Site acetaminophen (OFIRMEV) injection Given 12/29/2017 15:29 [employer] 1,000 mg Administer over 15 Minutes, INTRA-PROCEDURE MED, Starting 12/29/17 at 1529, Until 12/29/17 at 1651, Pain non-opioid: may be used alone or in combination with opioid analgesia, Anesthesia Intra-op ceFAZolin (ANCEF) injection Given 12/29/2017 12:06 [employer] 2 g INTRA-PROCEDURE MED, Starting 12/29/17 at 1206, Until 12/29/17 at 1651, Anesthesia Intra-op Given 12/29/2017 16:00 [employer] 2 g dexamethasone (DECADRON) injection Given 12/29/2017 12:22 [employer] 6 mg Intravenous, INTRA-PROCEDURE MED, Starting 12/29/17 at 1222, Until 12/29/17 at 1651, Nausea/Vomiting Injectable, Anesthesia Intra-op electrolyte-A (PLASMA-LYTE A PH 7.4) Given - New Bag 12/29/2017 12:03 [employer] injection INTRA-PROCEDURE MED(CONT), Starting 12/29/17 at 1203, Until Discontinued, Anesthesia Intra-op indocyanine green (IC GREEN) injection Given 12/29/2017 15:07 [employer] 25 mg INTRA-PROCEDURE MED, Starting 12/29/17 at 1507, Until 12/29/17 at 1651, Anesthesia Intra-op insulin regular (NOVOLIN R) Given - New Bag 12/29/2017 14:19 [employer] 4 Units/hr 4 mL/hr 100 Units in sodium chloride 0.9% (NS) 100 mL IV drip (std conc) 100 mL, INTRA-PROCEDURE MED(CONT), Starting 12/29/17 at 1419, Until 12/29/17 at 1651, Anesthesia Intra-op Bolus 12/29/2017 14:20 [employer] 5 Units labetalol (NORMODYNE) injection Given 12/29/2017 16:34 [employer] 5 mg INTRA-PROCEDURE MED, Starting 12/29/17 at 1634, Until 12/29/17 at 1651, Systolic Blood Pressure..., Anesthesia Intra-op Given 12/29/2017 16:48 [employer] 5 mg levETIRAcetam (KEPPRA) 1,000 mg in Given - New Bag 12/29/2017 12:17 [employer] 1,000 mg sodium chloride 0.9% (NS) 100 mL IVPB 100 mL, Administer over 15 Minutes, INTRA-PROCEDURE MED(CONT), Starting 12/29/17 at 1217, Until Discontinued, Anesthesia Intra-op mannitol (OSMITROL) 20 % infusion Given 12/29/2017 11:59 [employer] 50 g INTRA-PROCEDURE MED, Starting 12/29/17 at 1159, Until 12/29/17 at 1651, Serum Osmolarity..., Anesthesia Intra-op phenylephrine Dose/Rate Change 12/29/2017 15:40 0.5 mcg/kg/min 73.5 mL/hr (LYDIA-SYNEPHRINE) 10 mg [employer] in sodium chloride 0.9% (NS) 250 mL IV drip (std conc) 250 mL, INTRA-PROCEDURE MED(CONT), Starting 12/29/17 at 1120, Until Discontinued, Anesthesia Intra-op Dose/Rate Change 12/29/2017 15:50 [employer] 0.45 mcg/kg/min 66.2 mL/hr Dose/Rate Change 12/29/2017 16:06 [employer] 0.3 mcg/kg/min 44.1 mL/hr phenylephrine in NS Injection Given 12/29/2017 12:45 [employer] 100 mcg Intravenous, INTRA-PROCEDURE MED, Starting 12/29/17 at 1245, Until 12/29/17 at 1651, Symptomatic Hypotension, Anesthesia Intra-op Given 12/29/2017 13:05 [employer] 50 mcg Given 12/29/2017 13:15 [employer] 50 mcg propofol (DIPRIVAN) infusion Bolus 12/29/2017 14:00 [employer] 100,000 mcg 100 mL, Intravenous, INTRA-PROCEDURE MED(CONT), Starting 12/29/17 at 1214, Until Discontinued, Anesthesia Intra-op Dose/Rate Change 12/29/2017 15:42 [employer] 70 mcg/kg/min 41.2 mL/hr Dose/Rate Change 12/29/2017 15:57 [employer] 55 mcg/kg/min 32.3 mL/hr remifentanil (ULTIVA) 1 mg/3 Dose/Rate 12/29/2017 13:19 0.08 mcg/kg/min 9.4 mL/hr mL 1,000 mcg in sodium Change [employer] chloride 0.9% (NS) 20 mL Injection Intravenous, INTRA-PROCEDURE MED(CONT), Starting 12/29/17 at 1155, Until Discontinued, Anesthesia Intra-op Dose/Rate Change 12/29/2017 15:18 [employer] 0.06 mcg/kg/min 7.1 mL/hr Dose/Rate Change 12/29/2017 15:49 [employer] 0.08 mcg/kg/min 9.4 mL/hr sodium chloride 0.9 % infusion Given - New Bag 12/29/2017 08:41 [employer] 250 mL, 250 mL, Intravenous, at 0-300 mL/hr, CONTINUOUS, Starting 12/29/17 at 0615, Until 12/30/17 at 0855, Replace negative fluid balance 1:1 to maintain net zero. Given - New Bag 12/29/2017 11:20 [employer] Given - New Bag 12/30/2017 00:55 [employer] 250 mL 300 mL/hr sodium chloride 0.9 % infusion Given - New Bag 12/29/2017 11:30 [employer] INTRA-PROCEDURE MED(CONT), Starting 12/29/17 at 1130, Until Discontinued, Anesthesia Intra-op in this encounter
--- OUTSIDE RECORDS SUMMARY | 2018-01-13 17:05 | External Medical Summary | Encounter Summary ---
:1945 Author Organization [facility] Address [address] [place] [address] Phone Care Team Providers Name Role Phone Pastor Fatima MD Primary Care Provider Reason for Visit Auth/Cert Status Reason Specialty Diagnoses / Procedures Referred By Contact Referred To Contact Diagnoses Subarachnoid hemorrhage (HCC) Ruptured Aneurysm Subarachnoid hemorrhage (HCC) Encounter Details Date Type Department Care Team Description 12/29/2017 Surgery [place] Operating Room Oumar Mercer MD REPAIR ANEURYSM [address] [place] [place] [address] [address] [place], [place] [id number] Social History Tobacco Use Types Packs/Day Years Used Date Former Smoker Smokeless Tobacco: Never Used Alcohol Use Drinks/Week oz/Week Comments No Sex Assigned at Date Recorded Not on file as of this encounter Last Filed Vital Signs Vital Sign Reading Time Taken Blood Pressure 147/68 01/13/2018 8:03 AM [facility] Pulse 82 01/13/2018 8:03 AM [facility] Temperature 37.1 C (98.8 F) 01/13/2018 8:03 AM [facility] Respiratory Rate - - Oxygen Saturation 99% 01/13/2018 8:03 AM [facility] Inhaled Oxygen Concentration - - Weight 101.8 kg (224 lb 6.9 oz) 01/07/2018 3:00 AM [facility] Height 165.1 cm (5' 5") 12/30/2017 3:00 PM [facility] Body Mass Index 37.35 01/07/2018 3:00 AM [facility] in this encounter Functional Status Functional Status [...] as of this encounter Progress Notes Rina Crews RN - 01/13/2018 9:57 AM CSTPachuck Dillon discharged on 2017. . Discharge instructions reviewed with patient. Valuables returned: . Home medications: . PIVs removed. Afebrile. VSS. All questions answered. Pt leaving hospital via car with nephew. Will be going to rehab facility in [place], [place]. This RN to call report to facility. Anabel Mitchell APRN - 01/13/2018 8:42 AM CSTFormatting of this [...] Continue current care -- [facility] NA 133 PT/OT/EMAIL OPERATIONS MANAGER Pain controlled Appreciate Medicine recommendations Discharge planning -- rehab facility this AM; CM/SW involved. Prophylaxis: A)GI: PPI B) Lines: None; PIV C) Urinary Catheter: No D) Antibiotic Usage: No E) VTE: Pharmacological prophylaxis; SQ Heparin and Mechanical prophylaxis; Sequential compression device F) Restraints: Patient assessed for need for restraints. Anabel Mitchell, JUDGE CLERK 4710 Please call [phone] with any questions.Bridgett Mcmahan, PT - 01/12/2018 [...] PROGRESS NOTE Patient Name: Yarely Dillon Room/Bed: [place] [address] Admitting Diagnosis: Ruptured Aneurysm Subarachnoid hemorrhage (HCC) [...] obtained with evidence of SAH, transferred to [facility] for management of traumatic vs aneurysmal SAH. 12/29: OR for Left pterional craniotomy for clipping of AComm aneurysm. Precautions: Falls ([employer] video monitor ) Pain / Complaints: Patient agrees to participate in therapy Pain Location: Back Pain Level Current: 7 (RN notified) Comments: Patient positioned for comfort in recliner uppon therapist arrival and departure with needs met and precautions in place. Patient watching TV show. [employer] patient monitor notified of patient's return to room. Objective Psychosocial Status: Willing and Cooperative to Participate Persons Present: None Home Living Type of Home: House Home Layout: Able to Live on Main Level w/Bedrm/Bathrm Access Bathroom Shower / Tub: Walk-in Shower Bathroom Toilet: Standard Prior Function Level Of [place]: Independent with ADLs and functional transfers; Independent [...] Patient Will Perform All ADL's: w/ Modified [place], w/ Good Judgment/ Safety Functional Transfer Goals Pt Will Perform All Functional Transfers: Modified Independent, w/ Good Judgment /Safety OT Discharge Recommendations OT Discharge Recommendations: Inpatient Setting Equipment Recommendations: Too early to be determined Therapist: JOSH Akhtar/April 2102 Date: 01/12/2018Anabel Mitchell APRN - 01/12/2018 9:44 [...] current care -- Keppra, [facility] NA 134 PT/OT/EMAIL OPERATIONS MANAGER Pain controlled Appreciate Medicine recommendations Discharge planning -- rehab placement; CM/SW involved. Prophylaxis: A)GI: PPI B) Lines: None; PIV C) Urinary Catheter: No D) Antibiotic Usage: No E) VTE: Pharmacological prophylaxis; SQ Heparin and Mechanical prophylaxis; Sequential compression device F) Restraints: Patient assessed for need for restraints. Anabel Mitchell, JUDGE CLERK 7777 Please call [phone] with any questions.Kenyatta Mathis RN - 01/12/2018 2:45 AM CSTBP 184/47, HR [...] home diabetes medication for discharge. Assessment/Plan #DM2 -QUOTATION CHECKER on glyburide, metformin, A1C 6.7% -Started on Florinef on admission, worsening glucose tolerance secondary to decadron and Florinef -Florinef d/c'ed 01/08, metformin/glyburide restarted 01/10 PM -Fasting glucose 94 this AM, Accuchecks 114-212 -Continue QUOTATION CHECKER glyburide and metformin, SSI #HTN -BPs 135-160/44-64 -Currently holding commercial shrimping captain spironolactone/HCTZ. -Continue methyldopa and nimodipine per primary team #SAH -S/p craniotomy and clipping -Keppra -Management per primary team Patient seen and discussed with Dr. Castro. We will continue to follow peripherally. Liban Acosta MD PGY-1 Internal Medicine Consult pager: [phone] History of Present Illness: Yarely Dillon is a 72 y.o. female. No acute events overnight. Florinefd/leeanna 01/08, QUOTATION CHECKER metformin and glyburide restarted last night. No F/C, N/V. Past Medical History: Diagnosis Date DM (diabetes mellitus) (HCC) HTN (hypertension) Past Surgical History: Procedure Laterality Date INTRACRANIAL ANEURYSM REPAIR Left 12/29/2017 REPAIR ANEURYSM CRANIOTOMY performed by Oumar Mercer MD at [facility] OR/Periop HX TONSILLECTOMY Social History Social History Marital status: Spouse name: N/A Number of children: N/A Years of education: N/A Social History Main Topics Smoking status: Former Smoker Smokeless tobacco: Never Used Alcohol use No Drug use: Unknown Sexual activity: Not on file Other Topics Concern Not on file Social History Narrative Lives with Asaf, no children but 2 nephews in [place]. Perform all ADLs independently History reviewed. No [...] Liban Acosta MD Internal Medicine Consult pager: [phone] Associated attestation - Jason Castro MD - [...] start to titrate, will decrease to BID PT/OT/EMAIL OPERATIONS MANAGER-Rehab is the overall recommendation, has very limited hands on support and consistent supervision. Dispo pending Rehab placement. Prophylaxis: A)GI: PPI B) Lines: None; PIV C) Urinary Catheter: No D) Antibiotic Usage: No E) VTE: Pharmacological prophylaxis; SQ Heparin and Mechanical prophylaxis; Sequential compression device F) Restraints: Patient assessed for need for restraints. Maryjane Telles, JUDGE CLERK 6393 Please call [phone] with any questions.Mariah Hemphill, OT - 01/11/2018 11: 27 AM CSTFormatting of this note may be different from the original. OCCUPATIONAL THERAPY PROGRESS NOTE Patient Name: Yarely Dillon Room/Bed: [id number] Admitting Diagnosis: Ruptured Aneurysm Subarachnoid hemorrhage (HCC) [...] obtained with evidence of SAH, transferred to [facility] for management of traumatic vs aneurysmal SAH. [...] Patient Will Perform All ADL's: w/ Modified [place], w/ Good Judgment/ Safety Functional Transfer Goals [...] crutch. Therapist: Bridgett Mcmahan, PT Date: 01/11/2018 Stefanie Milton - 01/11/2018 8:07 AM [facility] CLINICAL NUTRITION Clinical Nutrition Follow-Up Summary Nutrition Assessment of Patient: Malnutrition Assessment: Does not meet criteria Current Oral Intake: Adequate Estimated Calorie Needs: 1635 (25 kcal/kg desired wt 65.4kg) Estimated Protein Needs: 78-85 (1.2-1.3 gm/kg desired wt 65.4kg) Oral Diet Order: Diabetic 1781-4305 Kcal/day (60 g Carb/meal, 30 g Carb/HS [...] Status: Met Rajani Milton RD, LD Pager: [phone] Inna Perkins MD - 01/10/2018 7:31 PM [...] < 160 mmHg Na 135 -Na solution, PT/OT/EMAIL OPERATIONS MANAGER-making steady progress, will need consistent supervision at home. Continue to monitor for home vs rehab. PT TODAY Prophylaxis: A)GI: PPI B) Lines: None; PIV C) Urinary Catheter: No D) Antibiotic Usage: No E) VTE: Pharmacological prophylaxis; SQ Heparin and Mechanical prophylaxis; Sequential compression device F) Restraints: Patient assessed for need for restraints. Denzel Mi MD 7023 Please call [phone] with any questions.Denzel Mi MD - 01/09/2018 [...] < 160 mmHg Na 134 -Na solution, PT/OT/EMAIL OPERATIONS MANAGER-making steady progress, will need consistent supervision at home. Continue to monitor for home vs rehab. IRF vs home Prophylaxis: A)GI: PPI B) Lines: None; PIV C) Urinary Catheter: No D) Antibiotic Usage: No E) VTE: Pharmacological prophylaxis; SQ Heparin and Mechanical prophylaxis; Sequential compression device F) Restraints: Patient assessed for need for restraints. Denzel Mi MD 2390 Please call [phone] with any questions.Geoffrey Pantoja MD - 01/08/2018 [...] continue insulin for now and will restart commercial shrimping captain metformin and glyburide if florinef remains discontinued #. HTN - currently holding commercial shrimping captain spironolactone/HCTZ. - continue methyldopa and nimodipine [...] and provide OT intervention as indicated. Therapist: JOSH Martinez/April 0271 Date: 01/08/2018Maryjane Telles APRN - 01/08/2018 [...] evening. 500ml IVF NS bolus this AM PT/OT/EMAIL OPERATIONS MANAGER-making steady progress, will need consistent supervision at home. Continue to monitor for home vs rehab. Floor status. Discharge first of next week. Prophylaxis: A)GI: PPI B) Lines: None; PIV C) Urinary Catheter: No D) Antibiotic Usage: No E) VTE: Pharmacological prophylaxis; SQ Heparin and Mechanical prophylaxis; Sequential compression device F) Restraints: Patient assessed for need for restraints. Maryjane Telles, JUDGE CLERK 5089 Please call [phone] with any questions.Sindy Baldwin, RN - 01/07/2018 11: 32 PM CSTPt not able to get comfortable at this time. Complains of 6 out of 10 back pain. Pt gotten up to thechair. Refusing any pain medication at this time. Will continue to monitor and offer routinely.Marion Kramer RD - 2017 4:41 PM [facility] CLINICAL NUTRITION Clinical Nutrition Follow-Up Summary Nutrition Assessment of Patient: Malnutrition Assessment: Does not meet criteria Current Oral Intake: Adequate Estimated Calorie Needs: 1635 (25 kcal/kg desired wt 65.4kg) Estimated Protein Needs: 78-85 (1.2-1.3 gm/kg desired wt 65.4kg) Oral Diet Order: Diabetic 7384-5142 Kcal/day (60 g Carb/meal, 30 g Carb/HS [...] Continue treatment 1-3x/week Therapist: Sylvia Antony M.A. CF-EMAIL OPERATIONS MANAGER Pager: [phone] Weekend Acute Pager: [phone] Date: 01/07/2018 Liliana Nobles, PT - 01/07/2018 [...] with Assistance;versus;Inpatient Setting Equipment Recommendations: Roller Walker Therapist: Liliana Nobles, PT Date: 01/07/2018 Tobias Chapman MD - [...] Na solution 1:1 NS replacement Daily TCDs PT/OT/EMAIL OPERATIONS MANAGER Discharge planning -- Floor today; rehab consult pending Prophylaxis: A)GI: PPI B) Lines: None; PIV C) Urinary Catheter: No D) Antibiotic Usage: No E) VTE: Pharmacological prophylaxis; SQ Heparin and Mechanical prophylaxis; Sequential compression device F) Restraints: Patient assessed for need for restraints. Tobias Chapman MD 7929 Please call [phone] with any questions.Nereida Garner APRN - 2017 6:23 AM CSTFormatting of this [...] obtained with evidence of SAH, transferred to [facility] for management. AComm aneurysm clipped in OR on 12/29. Hospital and ICU course: 12/29: Transfer from [place], [place] with SAH. Neurologically intact. S/p craniotomy [...] TCDs daily - melatonin 3mg qHS - PT/OT/EMAIL OPERATIONS MANAGER for cognitive eval - Neuro-ICU monitoring, neurochecks q 2 hrs Sedation, pain - No QUOTATION CHECKER 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 - PRN oxycodone, tylenol available - Monitor for delirium- neuro checks to Q2H and scheduled melatonin qHS Cardiac Hx HTN - Holding QUOTATION CHECKER spironolactone/HCTZ 25-25mg QD - Continue QUOTATION CHECKER Methyldopa 250 mg BID - Prn labetalol, [...] DM, hyperglycemia - A1C 6.7% - Holding QUOTATION CHECKER metformin-glyburide 2.5-500 1 tab BID - Blood [...] the octopuses off the floor" on the [employer] (EBTH). OBJECTIVE Vital Signs: Last Filed Vital Signs: 24 Hour Range BP: 105/56 (01/07 0600) Temp: 37.1 C (98.7 F) (01/07 0400) Pulse: 76 (01/07 06) Respirations: 13 PER MINUTE (01/07 06) SpO2: 97 % (01/07 06) O2 Delivery: None (Room Air) (01/07 0500) Weight: 101.8 kg (224 lb 6.9 oz) (01/07 0300) BP: (105-170)/(38-95) Temp: [36.6 C (97.8 F)-37.1 [...] (01/07/18 0334) POC Glucose (Download): (!) 157 (01/06/182203) Lab Review: Pertinent labs reviewed Radiology and Other Diagnostic Procedures Review: Pertinent radiologic and diagnostic procedures reviewed. Nereida Garner APRN Date: 01/07/[phone] Jermaine Chua MD - 01/06/2018 10:35 PM [...] presented to OSH after fall in shower atapproxtely 2014 on 12/28. Developed pain in back of head , twisted to turn water off and lost consciousness. Woke up less than 10min after event, got herself up and got her . CT head obtained with evidence of SAH, transferred to [facility] for management. AComm aneurysm clipped in OR on 12/29. Hospital and ICU course: 12/29: Transfer from [place], [place] with SAH. Neurologically intact. S/p craniotomy [...] 01/05: Agitation overnight. Risperdal 0.5mg x1 given 2/14: NAEO, added back 1:1 fluid replacement in [...] daily - Started melatonin 3mg qHS - PT/OT/EMAIL OPERATIONS MANAGER for cognitive eval - Neuro-ICU monitoring, neurochecks q 2 hrs Sedation, pain - No QUOTATION CHECKER 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 - PRN oxycodone, tylenol available - Monitor for delirium- neuro checks to Q2H and scheduled melatonin qHS Cardiac Hx HTN - Holding QUOTATION CHECKER spironolactone/HCTZ 25-25mg QD - Continue QUOTATION CHECKER Methyldopa 250 mg BID - Prn labetalol, [...] DM, hyperglycemia - A1C 6.7% - Holding QUOTATION CHECKER metformin-glyburide 2.5-500 1 tab BID - Blood [...] need for restraints. Disposition/Family:NEICU monitoring Primary service: [facility] Consults:Neurosurgery SUBJECTIVE Yarely Dillon is [...] hours) Intake/Output Summary (Last 24 hours) at 01/06/182234 Last data filed at 01/06/18 192 Gross per 24 hour Intake 3210 ml Output 3200 ml Net 10 ml Stool Occurrence: 1 Physical Exam: Blood pressure 129/60, pulse 60, temperature 37.1 C (98.7 F), height 165.1 cm (65"), weight 102.1 kg (225 lb 1.4 oz), SpO2 100 %. [place] coma score: E: 4 - opens eyes [...] Testing: (Last 24 hours) Glucose: (!) 136 (01/06/18313) POC Glucose (Download): (!) 157 (01/06/182203) Lab Review: Pertinent labs reviewed Radiology and [...] consulted teams Jermaine Chua MD Date: 01/06/[phone] Liliana Nobles, PT - 01/06/2018 10:29 AM [...] Na solution 1:1 NS replacement Daily TCDs PT/OT/EMAIL OPERATIONS MANAGER Discharge planning -- anticipate floor status tomorrow; rehab consult pending Prophylaxis: A)GI: PPI B) Lines: None; PIV C) Urinary Catheter: No D) Antibiotic Usage: No E) VTE: Pharmacological prophylaxis; SQ Heparin and Mechanical prophylaxis; Sequential compression device F) Restraints: Patient assessed for need for restraints. Anabel Mitchell, JUDGE CLERK 3050 Please call [phone] with any questions.Nereida Garner, SUSSY - 2017 6:46 AM CSTFormatting of this note may be different from the original. Neuro Critical Care Progress Note Yarely Dillon Admission Date: 12/29/2017 LOS: 8 days Full Code ASSESSMENT/PLAN Patient Active Problem List Diagnosis Date Noted Diabetes (HCC) 12/29/2017 Hypertension 12/29/2017 Subarachnoid hemorrhage (HCC) 12/29/2017 Yarely Lopezhaidermundo a 72 y.o.femalewith PMH DM, HTN who presented to OSH after fall in shower atapptely 2014 on 12/28. Developed pain in back of head , twisted to turn water off and lost consciousness. Woke up less than 10min after event, got herself up and got her . CT head obtained with evidence of SAH, transferred to [facility] for management. AComm aneurysm clipped in OR on 12/29. Hospital and ICU course: 12/29: Transfer from [place], [place] with SAH. Neurologically intact. S/p craniotomy [...] daily - Started melatonin 3mg qHS - PT/OT/EMAIL OPERATIONS MANAGER for cognitive eval - Neuro-ICU monitoring, neurochecks q 2 hrs Sedation, pain - No QUOTATION CHECKER 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 - PRN oxycodone, tylenol available - Monitor for delirium- neuro checks to Q2H and scheduled melatonin qHS Cardiac Hx HTN - Holding QUOTATION CHECKER spironolactone/HCTZ 25-25mg QD - Continue QUOTATION CHECKER Methyldopa 250 mg BID - Prn labetalol, [...] hours) at 01/06/18645 Last data filed at 01/06/18599 Gross per 24 hour Intake 2220 ml Output 3425 ml Net -1205 ml Endocrine: DM, hyperglycemia - A1C 6.7% - Holding QUOTATION CHECKER metformin-glyburide 2.5-500 1 tab BID - Blood [...] (98.7 F) (01/06 0400) Pulse: 59 (01/06 600) Respirations: 15 PER MINUTE (01/06 600) SpO2: 99 % (01/06 600) O2 Delivery: None (Room Air) (01/06 600) Weight: 102.1 kg (225 lb 1.4 oz) [...] (225 lb 1.4 oz), SpO2 99 %. [place] coma score: E: 4 - opens eyes [...] of care with consulted teams Nereida Garner, JUDGE CLERK Date: 01/06/[phone] Liliana Nobles, PT - 01/05/2018 1:23 PM [id number] THERAPY PROGRESS NOTE MOBILITY: Mobility Progressive Mobility [...] obtained with evidence of SAH, transferred to [facility] for management. AComm aneurysm clipped in OR on 12/29. Hospital and ICU course: 12/29: Transfer from [place], [place] with SAH. Neurologically intact. S/p craniotomy [...] sutures - Started melatonin 3mg qHS - PT/OT/EMAIL OPERATIONS MANAGER for cognitive eval - Neuro-ICU monitoring, neurochecks q 2 hrs Sedation, pain - No QUOTATION CHECKER 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 - PRN oxycodone, tylenol available - Monitor for delirium- neuro checks to Q2H and scheduled melatonin qHS - Risperdal 0.5 mg once overnight Cardiac Hx HTN - Holding QUOTATION CHECKER spironolactone/HCTZ 25-25mg QD - Continue QUOTATION CHECKER Methyldopa 250 mg BID - Prn labetalol, [...] DM, hyperglycemia - A1C 6.7% - Holding QUOTATION CHECKER metformin-glyburide 2.5-500 1 tab BID - Blood [...] SpO2 98 %. Karl coma score: E: 4 - [...] 0416) POC Glucose (Download): (!) 220 (01/05/18 1135) Lab Review: Pertinent labs reviewed Radiology and Other Diagnostic Procedures Review: Pertinent radiologic and diagnostic procedures reviewed. Jermaine Chua MD Date: 01/05/[phone] Denzel Mi MD - 01/05/2018 6:38 AM [...] #7 Left ACOMM aneurysm clipping (Dr. Mercer) Олег Ojeda SBP < 180 TCD 2.5 / 1.7 [...] for restraints. Denzel Mi MD Please call [phone] with any questions.Jazzy Dasilva, JUDGE CLERK - 01/05/2018 6:06 AM CSTFormatting of this [...] obtained with evidence of SAH, transferred to [facility] for management. AComm aneurysm clipped in OR on 12/29. Hospital and ICU course: 12/29: Transfer from [place], [place] with SAH. Neurologically intact. S/p craniotomy [...] sutures - Started melatonin 3mg qHS - PT/OT/EMAIL OPERATIONS MANAGER for cognitive eval - Neuro-ICU monitoring, neurochecks q 2 hrs Sedation, pain - No QUOTATION CHECKER 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 - PRN oxycodone, tylenol available - Monitor for delirium- neuro checks to Q2H and scheduled melatonin qHS - Risperdal 0.5 mg once overnight Cardiac Hx HTN - Holding QUOTATION CHECKER spironolactone/HCTZ 25-25mg QD - Continue QUOTATION CHECKER Methyldopa 250 mg BID - Prn labetalol, [...] DM, hyperglycemia - A1C 6.7% - Holding QUOTATION CHECKER metformin-glyburide 2.5-500 1 tab BID - Blood [...] (226 lb 10.1 oz) (01/04 0800) BP: (118-174)/(31-79) Temp: [36.4 C (97.6 F)-37.3 [...] (226 lb 10.1 oz), SpO2 97 %. [place] coma score: E: 4 - opens eyes [...] Testing: (Last 24 hours) Glucose: (!) 149 (01/05/186) POC Glucose (Download): (!) 195 (01/04/182013) Lab [...] of care with consulted teams Jazzy Dasilva, JUDGE CLERK Date: 01/05/[phone] Anna Hernandez, PT - 01/04/2018 3:23 PM CSTPHYSICAL THERAPY NOTE Patient declined to participate despite encouragement and education about the role and benefits of physical therapy due to fatigue. Physical therapy will continue to follow and provide intervention asindicated. Therapist: Anna Hernandez, PT Date: 01/04/2018 Stefanie Milton - 01/04/2018 2:28 PM [facility] CLINICAL NUTRITION Clinical Nutrition Assessment Summary Nutrition Assessment of Patient: BMI Categories Adult: Obesity Class II: 35-39.9 (36.61) Malnutrition Assessment: Does not meet criteria Current Oral Intake: Inadequate Estimated Calorie Needs: 1635 (25 kcal/kg desired wt 65.4kg) Estimated Protein Needs: 78-85 (1.2-1.3 gm/kg desired wt 65.4kg) Oral Diet Order: Diabetic 9916-0338 Kcal/day (60 g Carb/meal, 30 g Carb/HS [...] to provide subjective information. Pt reports that QUOTATION CHECKER she was eating well and her weight [...] Throughout Stay Rajani Milton RD, LD Pager: [phone] Sylvia Antony - 01/04/2018 2:22 PM CSTSPEECH-LANGUAGE [...] received from family. Reading comprehension Y/N questions: 04/30 Writing: Pt able to write name, 3/3 words, and 1/1 sentence Verbal expression: Pt with limited verbal output for cookie theft picture, she stated: "He's in the cookie jar" and "There's a mess." Speech was noted to be fluent. Continue goal at this level to ensure accuracy PLAN / RECOMMENDATIONS: Continue treatment 1-3x/week Therapist: Sylvia Antony M.A. CF-EMAIL OPERATIONS MANAGER Pager: [phone] Weekend Acute Pager: [phone] Date: 01/04/2018 Mariah Hemphill, OT - 01/04/2018 1:10 PM CSTOCCUPATIONAL THERAPY NO TREATMENT NOTE Attempted to see patient however patient declined. Provided support and encouragement however patient continued to state "No" with her eyes closed and pulled her blankets up over her. Will follow andprovide OT intervention as indicated. Therapist: Mariah Hemphill, OTR/L 0271 Date: 01/04/2018Stephanie Chau M.Div, [facility] - 01/04/2018 11:16 AM CSTReason for Visit: Rounding Noemi/Latter-Day: The patient is Mormonism and does not belong to a specific evangelical. Worries/Concerns/Struggles: Right now, she really wants to go home. Method(s) of Coping: She said she likes to "keep living and doing the things she does." Support System: Her , brother, and two nephews are her strongest support. Interventions/Plan: The spaghetti machine operator assessed the patient. Jermaine Chua MD - [...] obtained with evidence of SAH, transferred to [facility] for management. AComm aneurysm clipped in OR on 12/29. Hospital and ICU course: 12/29: Transfer from [facility] [place] with SAH. Neurologically intact. S/p craniotomy for [...] sutures - Started melatonin 3mg qHS - PT/OT/EMAIL OPERATIONS MANAGER for cognitive eval - Neuro-ICU monitoring, neurochecks q 2 hrs Sedation, pain - No QUOTATION CHECKER 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 - PRN oxycodone, tylenol available - Monitor for delirium- will decrease neuro checks to Q2H and scheduled melatonin qHS Cardiac Hx HTN - Holding QUOTATION CHECKER spironolactone/HCTZ 25-25mg QD - Continue QUOTATION CHECKER Methyldopa 250 mg BID - Prn labetalol, [...] Hx DM - A1C 6.7% - Holding QUOTATION CHECKER metformin-glyburide 2.5-500 1 tab BID - Blood [...] for restraints. Disposition/Family: NEICU monitoring Primary service: [facility] Consults: Neurosurgery SUBJECTIVE Yarely Dillon is a 72 y.o. female. Overnight Events: No new events noted. OBJECTIVE Vital Signs: Last Filed Vital Signs: 24 Hour Range BP: 168/59 (01/04 0900) Temp: 37.3 C (99.1 F) (01/04 0800) Pulse: 67 (01/04 900) Respirations: 29 PER [...] 0345) POC Glucose (Download): (!) 153 (01/04/18 5810) Lab Review: Pertinent labs reviewed Radiology and Other Diagnostic Procedures Review: Pertinent radiologic and diagnostic procedures reviewed. Jermaine Chua MD Date: 01/04/[phone] Tobias Chapman MD - 01/04/2018 6:32 AM [...] #6 Left ACOMM aneurysm clipping (Dr. Mercer) Олег Ojeda SBP < 180 TCD 01/03 1.1, 1.6 [...] for restraints. Tobias Chapman MD Please call [phone] with any questions. Jazzy Dasilva APRN - 01/04/2018 6:09 AM CSTFormatting of this note may be different from the original. Neuro Critical Care Progress Note Yarely Wilma Admission Date: 12/29/2017 LOS: 6 days Full [...] obtained with evidence of SAH, transferred to [facility] for management. AComm aneurysm clipped in OR on 12/29. Hospital and ICU course: 12/29: Transfer from [place], [place] with SAH. Neurologically intact. S/p craniotomy [...] sutures - Started melatonin 3mg qHS - PT/OT/EMAIL OPERATIONS MANAGER for cognitive eval - Neuro-ICU monitoring, neurochecks q 2 hrs Sedation, pain - No QUOTATION CHECKER 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 - PRN oxycodone, tylenol available - Monitor for delirium- will decrease neuro checks to Q2H and scheduled melatonin qHS Cardiac Hx HTN - Holding QUOTATION CHECKER spironolactone/HCTZ 25-25mg QD - Continue QUOTATION CHECKER Methyldopa 250 mg BID - Prn labetalol, [...] Hx DM - A1C 6.7% - Holding QUOTATION CHECKER metformin-glyburide 2.5-500 1 tab BID - Blood [...] for restraints. Disposition/Family: NEICU monitoring Primary service: [facility] Consults: Neurosurgery SUBJECTIVE Yarely Dillon is a [...] (220 lb 0.3 oz), SpO2 95 %. [place] coma score: E: 3 - Opens eyes [...] of care with consulted teams Jazzy Dasilva, JUDGE CLERK Date: 01/04/[phone] Rory Edge RN - 01/03/2018 6:05 PM [...] #5 Left ACOMM aneurysm clipping (Dr. Mercer) Rusty, Олег SBP < 180 TCD 01/02 1.1, 1.6 [...] for restraints. Tiffanie Louie MD Please call [phone] with any questions. Risa Jonas MD - [...] obtained with evidence of SAH, transferred to [facility] for management of traumatic vs aneurysmal SAH. Hospital and ICU course: 12/29: Transfer from [facility] [place] with SAH. Neurologically intact. S/p craniotomy for [...] sutures - Started melatonin 3mg qHS - PT/OT/EMAIL OPERATIONS MANAGER for cognitive eval - Neuro-ICU monitoring, neurochecks q 2 hrs, parameters for Prevention of secondary brain injury(avoid hypotension, hypoxia, fever, hyperglycemia, significant anemia, diagnose and treatment of seizures,electrolyte abnormalities ) Sedation, pain - No QUOTATION CHECKER 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 - PRN oxycodone, tylenol available - Monitor for delirium- will decrease neuro checks to Q2H (okay with NSG) and schedule melatonin qHS Cardiac Hx HTN - Holding QUOTATION CHECKER spironolactone/HCTZ 25-25mg QD - Continue QUOTATION CHECKER Methyldopa 250 mg BID - Prn labetalol, [...] Hx DM - A1C 6.7% - Holding QUOTATION CHECKER metformin-glyburide 2.5-500 1 tab BID - Blood [...] discussed with Dr. Candice Jonas MD Pager [phone] SUBJECTIVE Yarely Dillon is a 72 y.o. [...] bisacodyl QDAY PRN, calcium gluconate IVPB PRN (Senior Technical Writer from [employer]) AND Ionized Calcium PRN AND Notify Physician Ongoing, hydrALAZINE Q6H PRN, labetalol (NORMODYNE; TRANDATE) injection Q15 MIN PRN, magnesium sulfate PRN AND Magnesium PRN AND Notify Physician Ongoing, ondansetron (ZOFRAN) IV Q6H PRN, oxyCODONE Q4H PRN, potassium chloride SR PRN OR potassium chloride PRN, sodium phosphate IVPB PRN (Senior Technical Writer from [employer]) AND Phosphorus PRN AND* * Notify Physician Ongoing Review of Systems: See subjective OBJECTIVE Vital Signs: Last Filed Vital Signs: Last 24 Hours BP: 157/106 (01/03 0400) Temp: 37.2 C (99 F) (01/03 0000) Pulse: 76 (01/03 0400) Respirations: 12 PER MINUTE (01/03 400) SpO2: [...] Staff name: Ana Harvey MD Date: 01/03/2018 JeovanyNata - 01/02/2018 11:28 AM CSTFormatting of this [...] obtained with evidence of SAH, transferred to [facility] for management of traumatic vs aneurysmal SAH. Hospital and ICU course: 12/29: Transfer from [place], [place] with SAH. Neurologically intact. S/p craniotomy [...] for post-op ppx - TCDs daily - PT/OT/EMAIL OPERATIONS MANAGER for cognitive eval - Requiring mittens, restraint, CO for impulsivity due to pulling at surgical sutures - Neuro-ICU monitoring, neurochecks q 1 hrs, parameters for Prevention of secondary brain injury(avoid hypotension, hypoxia, fever, hyperglycemia, significant anemia, diagnose and treatment of seizures,electrolyte abnormalities ) Sedation, pain - No QUOTATION CHECKER 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 - PRN oxycodone, tylenol available - Monitor for delirium Cardiac Hx HTN - Holding QUOTATION CHECKER spironolactone/HCTZ 25-25mg QD - Continue QUOTATION CHECKER Methyldopa 250 mg BID - Prn labetalol, [...] n/a over 24 hrs - Removed velázquez 2/ - Pt voiding on own- increased frequency (likely 2/2 encephalopathy and impulsivity) with PVR <20cc Endocrine: Hx DM - A1C 6.7% - Holding QUOTATION CHECKER metformin-glyburide 2.5-500 1 tab BID - Blood [...] Patient seen and discussed with Dr. Candice DUMONT Yarely Dillon is a 72 y.o. female. [...] bisacodyl QDAY PRN, calcium gluconate IVPB PRN (Senior Technical Writer from [employer]) AND Ionized Calcium PRN AND Notify Physician Ongoing, hydrALAZINE Q6H PRN, labetalol (NORMODYNE; TRANDATE) injection Q15 MIN PRN, magnesium sulfate PRN AND Magnesium PRN AND Notify Physician Ongoing, ondansetron (ZOFRAN) IV Q6H PRN, oxyCODONE Q4H PRN, potassium chloride SR PRN OR potassium chloride PRN, sodium phosphate IVPB PRN (Senior Technical Writer from [employer]) AND Phosphorus PRN AND* * [...] Radiology and Other Diagnostic Procedures: Reviewed. Nata Thayer, DO Associated attestation - Ana Harvey MD [...] #4 Left ACOMM aneurysm clipping (Dr. Mercer) Олег Ojeda SBP < 180 TCD 01/02 pending Na [...] for restraints. Tiffanie Louie MD Please call [phone] with any questions. Brittney Cartwright, RN - 01/02/2018 7:58 AM CSTPt. Continually picking [...] Continue treatment 1-3x/week Therapist: Sylvia Antony M.A. CF-EMAIL OPERATIONS MANAGER Pager: [phone] Weekend Acute Pager: [phone] Date: 01/01/2018 Mariah Hemphill OT - 01/01/2018 10:18 AM CSTFormatting of this note may be different from the original. OCCUPATIONAL THERAPY PROGRESS NOTE Patient Name: Yarely Dillon Room/Bed: [place] [address] Admitting Diagnosis: Ruptured Aneurysm Subarachnoid hemorrhage (HCC) [...] obtained with evidence of SAH, transferred to [facility] for management of traumatic vs aneurysmal SAH. 2/6: OR for Left pterional craniotomy for clipping [...] session, TABS alarm on. Activity Tolerance Endurance: 2/5 Tolerates 10-20 Minutes Exercise w/Multiple Rests Cognition [...] Patient Will Perform All ADL's: w/ Modified [place], w/ Good Judgment/ Safety Functional Transfer Goals Pt Will Perform All Functional Transfers: Modified Independent, w/ Good Judgment /Safety OT Discharge Recommendations OT Discharge Recommendations: Inpatient Setting, Vs, Home with family assist ( dependent on patient hospital course and progress) Equipment Recommendations: Too early to be determined Therapist: Mariah Hemphill OTR/L [id number] Date: 01/01/2018Liliana Nobles, PT - 01/01/2018 10:13 AM CSTPHYSICAL THERAPY [...] #3 Left ACOMM aneurysm clipping (Dr. Mercer) Rusty, Shirap SBP < 170 TCD 01/01 reviewed Left 1.7, Right 1.3 2/ CTA without residual acomm, small < 5mm [...] Patient assessed for need for restraints. Ronda Kulkarni APRN Please call [phone] with any questions. Risa Jonas MD - [...] obtained with evidence of SAH, transferred to [facility] for management of traumatic vs aneurysmal SAH. Hospital and ICU course: 12/29: Transfer from [place], [place] with SAH. Neurologically intact. S/p craniotomy [...] for post-op ppx - TCDs daily - PT/OT/EMAIL OPERATIONS MANAGER for cognitive eval - Neuro-ICU monitoring, neurochecks q 1 hrs, parameters for Prevention of secondary brain injury(avoid hypotension, hypoxia, fever, hyperglycemia, significant anemia, diagnose and treatment of seizures,electrolyte abnormalities ) Sedation, pain - No QUOTATION CHECKER 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 - PRN Fentanyl, oxycodone, tylenol available - Monitor for delirium Cardiac Hx HTN - Holding QUOTATION CHECKER spironolactone/HCTZ 25-25mg QD - Continue QUOTATION CHECKER Methyldopa 250 mg BID - Prn labetalol, [...] Hx DM - A1C 6.7% - Holding QUOTATION CHECKER metformin-glyburide 2.5-500 1 tab BID - Blood [...] and discussed with Dr. Candice Jonas Pager [phone] SUBJECTIVE Yarely Dillon is a 72 y.o. [...] bisacodyl QDAY PRN, calcium gluconate IVPB PRN (Senior Technical Writer from [employer]) AND Ionized Calcium PRN AND Notify Physician Ongoing, hydrALAZINE Q6H PRN, labetalol (NORMODYNE; TRANDATE) injection Q15 MIN PRN, magnesium sulfate PRN AND Magnesium PRN AND Notify Physician Ongoing, ondansetron (ZOFRAN) IV Q6H PRN, oxyCODONE Q4H PRN, potassium chloride SR PRN OR potassium chloride PRN, sodium phosphate IVPB PRN (Senior Technical Writer from [employer]) AND Phosphorus PRN AND* * Notify Physician Ongoing Review of Systems: See subjective OBJECTIVE Vital Signs: Last Filed Vital Signs: Last 24 Hours BP: 139/57 (01/01 600) Temp: 37.1 C (98.8 F) (01/010) Pulse: 90 (01/01 600) Respirations: 31 PER [...] Range Color,UA YELLOW Turbidity,UA CLEAR CLEAR-CLEAR Specific [place]-Urine 1.027 1.003 - 1.035 pH,UA 6.0 5.0 [...] pt must be fully alert Therapist: Yenny RIVERAL/EMAIL OPERATIONS MANAGER Pager:[phone] Office:[phone] Date: 12/31/2017 Liliana Noblse, PT - 12/31/2017 10:02 AM CSTPHYSICAL THERAPY [...] above evaluation and clinical judgment. Therapist: Liliana Nobles, PT Date: 12/31/2017 Tobias Chapman MD - [...] for need for restraints. Tobias Chapman MD [id number] Please call [phone] with any questions. Risa Jonas MD - [...] obtained with evidence of SAH, transferred to [facility] for management of traumatic vs aneurysmal SAH. Hospital and ICU course: 12/29: Transfer from [place], [place] with SAH. Neurologically intact. S/p craniotomy [...] for post-op ppx - TCDs daily - PT/OT/EMAIL OPERATIONS MANAGER for cognitive eval - Neuro-ICU monitoring, neurochecks q 1 hrs, parameters for Prevention of secondary brain injury(avoid hypotension, hypoxia, fever, hyperglycemia, significant anemia, diagnose and treatment of seizures,electrolyte abnormalities ) Sedation, pain - No QUOTATION CHECKER 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 - PRN Fentanyl, oxycodone, tylenol available - Monitor for delirium Cardiac Hx HTN - Holding QUOTATION CHECKER spironolactone/HCTZ 25-25mg QD - Continue QUOTATION CHECKER Methyldopa 250 mg BID - Prn labetalol, [...] Hx DM - A1C 6.7% - Holding QUOTATION CHECKER metformin-glyburide 2.5-500 1 tab BID - Blood [...] and discussed with Dr. Candice Jonas Pager [phone] TIM Dillon is a 72 y.o. female. She [...] bisacodyl QDAY PRN, calcium gluconate IVPB PRN (Senior Technical Writer from [employer]) AND Ionized Calcium PRN AND Notify Physician Ongoing, fentaNYL citrate PF Q1H PRN, hydrALAZINE Q6H PRN, labetalol (NORMODYNE; TRANDATE) injection Q15 MIN PRN , magnesium sulfate PRN AND Magnesium PRN AND Notify Physician Ongoing, ondansetron (ZOFRAN) IV Q6H PRN, oxyCODONE Q4H PRN, potassium chloride SR PRN OR potassium chloride PRN, sodium phosphate IVPB PRN (Senior Technical Writer from [employer]) AND* * Phosphorus PRN AND Notify Physician Ongoing Review of Systems: See subjective OBJECTIVE Vital Signs: Last Filed Vital Signs: Last 24 Hours BP: 134/112 (12/31 0500) Temp: 36.8 C (98.2 F) (12/31 0000) Pulse: 71 (12/31 0500) Respirations: 21 PER MINUTE (12/31 599) SpO2: 96 % (12/31 599) O2 Delivery: None (Room Air) (12/31 599) Height: 165.1 cm (65") (12/30 1500) Weight: 99.8 kg (220 lb 0.3 oz) (12/30 1500) BP: (107-150)/(33-121) Temp: [36.8 C (98.2 F)-36.9 [...] 12/31/2017 1:15 AM CSTSpoke with NEICU team pet resort concierge regarding pt urinating frequently throughout night. Pt velázquez removed at 1100 yesterday and pt has not had any post void residuals since removal. Pt is consistently voidingevery hour and between 9110-5535 pt voided 3 separate times. Post void residual after 2nd void within one hour=11. Pt without symptoms of urgency or pain while voiding. Pt also without fever or suprapubic pain. Per NEICU no new orders at this time, but will consider ordering a UA if pt has a fever or develops other symptoms of a UTI. Will continue to monitor. Person-Harsche, Deidra - 12/30/2017 1:45 PM CSTSPEECH-LANGUAGE PATHOLOGY CLINICAL [...] obtained with evidence of SAH, transferred to [facility] for management of traumatic vs aneurysmalSAH. Pt [...] cues to maintain attention. Therapist:Deidra Roberts MA, L/CCC-EMAIL OPERATIONS MANAGER [id number] Date:12/30/2017 Chantal Matute RN - 12/30/2017 1:07 PM CSTNoted patient to be clearing throat after sipping water with 1200 medications. Notified Neuro ICU and asked for speech swallow eval, order entered and EMAIL OPERATIONS MANAGER at bedside.Mariah Hemphill, JOSSELIN - 12/30/2017 10:58 AM CSTFormatting of this note may be different from the original. OCCUPATIONAL THERAPY ASSESSMENT NOTE Patient Name: Yarely Dillon Room/Bed: [place] [address] Admitting Diagnosis: Ruptured Aneurysm Subarachnoid hemorrhage (HCC) [...] obtained with evidence of SAH, transferred to [facility] for management of traumatic vs aneurysmal SAH. [...] Bathroom Toilet: Standard Prior Function Level Of [place]: Independent with ADLs and functional transfers; Independent [...] Patient Will Perform All ADL's: w/ Modified [place], w/ Good Judgment/ Safety Functional Transfer Goals Pt Will Perform All Functional Transfers: Modified Independent, w/ Good Judgment /Safety OT Discharge Recommendations OT Discharge Recommendations: Inpatient Setting, Vs, Home with family assist Equipment Recommendations: Too early to be determined G-Codes: Self-care G8987 Current Status: 60-79% Impairment G8988 Goal Status: 20-39% Impairment Based on above evaluation and clinical judgment. Therapist: JOSH Martinez/April 0271 Date: 12/30/2017PeTobias correa MD - 12/30/2017 6:50 AM CSTFormatting [...] for need for restraints. Tobias Chapman MD 4105 Please call [phone] with any questions. Risa Jonas MD - [...] obtained with evidence of SAH, transferred to [facility] for management of traumatic vs aneurysmal SAH. Hospital and ICU course: 12/29: Transfer from [place], [place] with SAH. Neurologically intact. S/p craniotomy [...] Goal : 135-145 - TCDs daily - PT/OT/EMAIL OPERATIONS MANAGER for cognitive eval - Neuro-ICU monitoring, neurochecks q 1 hrs, parameters for Prevention of secondary brain injury(avoid hypotension, hypoxia, fever, hyperglycemia, significant anemia, diagnose and treatment of seizures,electrolyte abnormalities ) Sedation, pain - No QUOTATION CHECKER 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 - PRN Fentanyl, oxycodone, tylenol available - Pt was disoriented overnight 12/29, required soft restraints briefly Cardiac Hx HTN - QUOTATION CHECKER spironolactone/HCTZ 25-25mg QD - Restart QUOTATION CHECKER Methyldopa 250 mg BID - Prn labetalol, [...] Hx DM - A1C 6.7% - Holding QUOTATION CHECKER metformin-glyburide 2.5-500 1 tab BID - Blood glucose goal 100-180mg/dl - Insulin gtt intra-op and overnight (23 units in 12 hours) - D/c insulin drip, will start [facility]: - Diabetic diet - Finish [...] and discussed with Dr. Candice Jonas Pager [phone] SUBJECTIVE Yarelyana paula Dillon is a 72 y.o. female. She [...] mL infusion (std conc)(premade) Stopped (12/29/17 0934) sodium chloride 0.9 % infusion 250 mL (12/30/17 0055) PRN and Respiratory Meds:acetaminophen Q4H PRN OR acetaminophen Q4H PRN, calcium gluconate IVPB PRN (Senior Technical Writer from [employer]) AND Ionized Calcium PRN AND* * Notify Physician Ongoing, fentaNYL citrate PF Q1H PRN, hydrALAZINE Q6H PRN, labetalol (NORMODYNE; TRANDATE) injection Q15 MIN PRN, magnesium sulfate PRN AND Magnesium PRN AND Notify Physician Ongoing, ondansetron (ZOFRAN) IV Q6H PRN, oxyCODONE Q4H PRN, potassium chloride SR PRN OR potassium chloride PRN, sodium phosphate IVPB PRN (Senior Technical Writer from [employer]) AND Phosphorus PRN AND* * Notify Physician Ongoing Review of Systems: See subjective OBJECTIVE Vital Signs: Last Filed Vital Signs: Last 24 Hours BP: 152/32 (12/30 0500) ABP: 99/50 (12/30 0100) Temp: 37 C (98.6 F) (12/30 0400) Pulse: 97 (12/30 0500) Respirations: 20 PER MINUTE (12/30 050) SpO2: 95 % (12/30 050) O2 Delivery: None (Room Air) (12/30 599) Weight: 99.8 kg (220 lb 0.3 oz) (12/29 1800) BP: (97-168)/(26-152) ABP: (93-151)/(37-55) Temp: [36.4 C (97.5 F)-37 C (98.6 F)] Pulse: [75-107] Respirations: [12 PER MINUTE-25 PER MINUTE] SpO2: [91 %-98 %] O2 Delivery: None (Room Air) Intensity Pain Scale 0-10 (Pain 1): (not recorded) Vitals: 12/29/171799 Weight: 99.8 kg (220 lb 0.3 oz) Critical Care Vitals: ICP Monitoring: Hemodynamics/Oxycalcs: Intake/Output Summary: (Last 24 hours) Intake/Output Summary (Last 24 hours) at 12/30/17606 Last data filed at 12/30/17 06 Gross per 24 hour Intake 4935.95 ml [...] Screen NEG Electronic Crossmatch YES Unit Number [id number] Blood Component Type RBC,ADSOL,LEUKO REDUCED Unit Division 0 Status OF Unit REL FROM ALLOC Transfusion Status OK TO TRANSFUSE Crossmatch Result COMPATIBLE,ELECTRONIC Unit Number [id number] Blood Component Type RBC,ADSOL,LEUKO REDUCED,2ND CONT. Unit [...] Sat-Arterial 99.3 (H) 95 - 99 % Vloczvzlgmu-EJF-Vxe 20.5 (L) 21 - 28 MMOL/L BLOOD [...] Sat-Arterial 99.6 (H) 95 - 99 % Pfvragmrlvz-JLB-Wie 19.6 (L) 21 - 28 MMOL/L IONIZED [...] Portillo, ERMELINDA - 12/30/2017 3:21 AM CSTDr. Jeovany with ICU notified that pt has been going in and out of [facility]. No new orders at this time. Will continue to monitor.Chantal Matute RN - 12/29/2017 7:[address] Thayer [...] at shift change, will pass along to shift mgr to continueto reassess patient for swallow as [...] size and response, motor strength and sensation, [place] Coma Scale) with each set of VS. [...] patient to return to room from OR.Rory Palma RN - 12/29/2017 9: 21 AM CSTAnesthesia to monitor vital signs and adm medications.Chantal Matute RN - 12/29/2017 8:45 AM CSTPatient taken to IR at approx. 0830 with ERMELINDA Valadez -IR ICU nurse, and Anesthesia. Patient sent on monitors, VSS prior to transfer. Handoff report given to ERMELINDA Valadez. Patient sent with chart-procedure and anesthesia consent obtained and inside.Ana María Gleason RT - 12/29/2017 6:27 AM CSTFormatting of this [...] Rx *Higher points indicate higher acuity. Therapist: RT Marek Date: 12/29/2017 [place] AC=Airway clearance AM=Aerosolized medication BA=[place] aerosol DB&C=Deep breathe & cough FEV1=Forced expiratory volume in first second) IC=Inspiratory capacity LE=Lung expansion MDI=Metered dose inhaler Neb=Nebulizer O2=Oxygen Oxim=Oximetry PEFR=Peak expiratory flow rate MELTER CLERK=Rapid Response Team Dejah Portillo, ERMELINDA - 12/29/2017 5:00 AM CSTPatient arrived to [...] in this encounter H&P Notes Yenny Narvaez, NINA,JUDGE CLERK - 12/29/2017 8:28 AM CSTFormatting of this [...] acetaminophen Q4H PRN, calcium gluconate IVPB PRN (Senior Technical Writer from [employer]) AND Ionized Calcium PRN AND* * Notify Physician Ongoing, fentaNYL citrate PF Q1H PRN, hydrALAZINE Q6H PRN, labetalol (NORMODYNE; TRANDATE) injection Q15 MIN PRN, magnesium sulfate PRN AND Magnesium PRN AND Notify Physician Ongoing, ondansetron (ZOFRAN) IV Q6H PRN, oxyCODONE Q4H PRN, potassium chloride SR PRN OR potassium chloride PRN, sodium phosphate IVPB PRN (Senior Technical Writer from [employer]) AND Phosphorus PRN AND* * [...] previous H&P performed on 12/29/17. Yenny Narvaez, MSN,JUDGE CLERK Pager [phone] Jeovany Nata, DO - 12/29/2017 3:13 AM CSTFormatting of this note may be different from the original. Neuroscience Critical Care History and Physical Yarely Dillon Admission Date: (Not on file) LOS: 0 [...] obtained with evidence of SAH, transferred to [facility] for management of traumatic vs aneurysmal SAH. Patient Active Problem List Diagnosis Diabetes (HCC) Hypertension Subarachnoid hemorrhage (HCC) Parkinson's disease (HCC) Hospital and ICU course: 01/01: Transfer from [place], [place] with SAH. Neurologically intact. Neuro: Subarachnoid [...] electrolyte abnormalities) Sedation, pain: No - No QUOTATION CHECKER 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 Fentanyl, oxycodone, tylenol Assess for delirium daily Cardiac: Hx HTN - QUOTATION CHECKER spironolactone/HCTZ 25-25mg QD - QUOTATION CHECKER Methyldopa 1 tab BID - Prn labetalol, [...] over 24 hrs Endocrine: Hx DM - QUOTATION CHECKER metformin-glyburide 2.5-500 1 tab BID - A1C [...] for need for restraints. Disposition/Family: Admit to [facility] Primary service: NCC Consults: Neurosurgery __ SUBJECTIVE [...] head obtained with evidence of SAH,transferred to [facility] for management of traumatic vs aneurysmal SAH. Past Medical History: Diagnosis Date DM (diabetes mellitus) (HCC) HTN (hypertension) Past Surgical History: Procedure Laterality Date HX TONSILLECTOMY Family history reviewed; non-contributory Social History: Lives with Asaf, no children but 2 nephews in [place]. Perform all ADLs independently Code Status: Full [...] acetaminophen Q4H PRN, calcium gluconate IVPB PRN (Senior Technical Writer from [employer]) AND Ionized Calcium PRN AND* * Notify Physician Ongoing, fentaNYL citrate PF Q1H PRN, hydrALAZINE Q6H PRN, labetalol (NORMODYNE; TRANDATE) injection Q15 MIN PRN, magnesium sulfate PRN AND Magnesium PRN AND Notify Physician Ongoing, ondansetron (ZOFRAN) IV Q6H PRN, oxyCODONE Q4H PRN, potassium chloride SR PRN OR potassium chloride PRN, sodium phosphate IVPB PRN (Senior Technical Writer from [employer]) AND Phosphorus PRN AND* * [...] present - Gag reflex: present EOM: intact [place] coma score: E: 4 M: 6 V: [...] Other Diagnostic Procedures Review: CTA pending Nata Thayer DO Date: 12/29/2017 Associated attestation - Ana [...] continue insulin for now and will restart commercial shrimping captain metformin and glyburide when able to wean off corticosteroids. #. HTN - currently holding commercial shrimping captain spironolactone/HCTZ. - continue methyldopa and nimodipine [...] Asaf, no children but 2 nephews in [place]. Perform all ADLs independently Immunizations (includes history [...] 0334) POC Glucose (Download): (!) 218 (01/07/18 1134) Pertinent radiology reviewed. Geoffrey Pantoja MD Pager [...] Staff name: Mikayla Wilkerson MD Date: 01/07/2018 [facility], Ruben Martins MD - 01/06/2018 8:54 AM CSTAssociated Order(s): CONSULT REHABILITATION MEDICINE PHYSICIANFormatting of this note may be different from the original. Physical Medicine & Rehabilitation Consult Note Date of Service: 01/06/2018 Yarely Dillon is a 72 y.o. female. : 1945 Primary Insurance: MEDICARE Secondary Insurance: [facility] Tertiary Insurance: Financial Class: Medicare Date of Admission: 12/29/2017 Referring Physician: Oumar Mercer MD Reason for Consult: evaluate for Post-Acute Rehab/Placement Precautions: Fall, Weight bearing Precautions: Progressive mobility Active Problems Subarachnoid Hemorrhage Acomm aneurysm s/p clipping Pcomm aneurysm Impaired ADLs Gait abnormality Assessment & Plan Yarely Dillon is a 72 y.o. female admitted to [facility] on 12/29/2017 with the following [...] 3 therapeutic disciplines, including PT, OT, and EMAIL OPERATIONS MANAGER. This will need to be determined prior to considering admission to acute inpatient rehabilitation. Rehab: Patient with deficits in bed mobility, transfers, gait, ambulation, self- cares and ADLs. Has been working with OT and PT and has continued goals with both disciplines. Differences between acute and subacute/SNF and qualifications for each one were explained to patient. Recommendations: Cognition: EMAIL OPERATIONS MANAGER following cognitive deficits and recommending consistent supervision [...] discharge. Ruben Hernández MD Rehab Consult Pager: [phone] History of Present Illness CC: L sided weakness Hospital Course: Yarely Dillon is a 72 y.o. female w/ PMHx of DM, HTN who was transferred to [facility] from [facility] 12/29 after fall w/ subsequent SAH and found to have Acomm aneurysm s/p left craniotomy and clipping by Dr. Mercer. Also has Pcomm aneurysm. Hospital course has been complicated by AMS and agitation requiring restraints and CO. She is getting near daily TCDs monitoring for vasospasm. PT/OT/EMAIL OPERATIONS MANAGER consulted for therapies and rehab has been [...] nephews in [place]. Perform all ADLs independently History reviewed. No [...] bisacodyl QDAY PRN, calcium gluconate IVPB PRN (Senior Technical Writer from Rx) AND Ionized Calcium PRN AND Notify Physician Ongoing, hydrALAZINE Q6H PRN, labetalol (NORMODYNE; TRANDATE) injection Q15 MIN PRN, magnesium sulfate PRN AND Magnesium PRN AND Notify Physician Ongoing, ondansetron (ZOFRAN) IV Q6H PRN, oxyCODONE Q4H PRN, potassium chlorideSR PRN OR potassium chloride PRN, sodium phosphate IVPB PRN (Senior Technical Writer from Rx) AND Phosphorus PRN AND Notify Physician Ongoing Allergies: Allergies Allergen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 Performing Laboratory [facility] [address] [place] [address] 07129 POC GLUCOSE (01/07/2018 11:37 AM) Component Value Ref Range Glucose, POC 218 (H) 70 - 100 MG/DL Specimen Performing Laboratory [facility] [address] [place] [address] 86511 POC GLUCOSE (01/07/2018 8:07 AM) Component Value Ref Range Glucose, POC 200 (H) 70 - 100 MG/DL Specimen Performing Laboratory [facility] [address] [place] [address] 48736 CBC AND DIFF (01/07/2018 3:34 AM) Component [...] Specimen Performing Laboratory Blood [facility] [address] [place] [address] 10831 IONIZED CALCIUM (01/07/2018 3:34 AM) Component Value Ref Range Ionized Calcium 1.17 1.0 - 1.3 MMOL/L Specimen Performing Laboratory Blood MAIN LAB [address] [place] [address] 62721 PHOSPHORUS (01/07/2018 3:34 AM) Component Value Ref Range Phosphorus 2.8 2.0 - 4.0 MG/DL Specimen Performing Laboratory Blood MAIN LAB [address] [place] [address] 00070 MAGNESIUM (01/07/2018 3:34 AM) Component Value Ref Range Magnesium 2.0 1.6 - 2.6 mg/dL Specimen Performing Laboratory Blood MAIN LAB [address] [place] [address] 75282 BASIC METABOLIC PANEL (01/07/2018 3:34 AM) Component [...] questions. Specimen Performing Laboratory Blood MAIN LAB [address] [place] [address] 58678 POC GLUCOSE (01/06/2018 10:04 PM) Component Value Ref Range Glucose, POC 157 (H) 70 - 100 MG/DL Specimen Performing Laboratory MAIN LAB [address] [place] [address] 85840 POC GLUCOSE (01/06/2018 4:26 PM) Component Value Ref Range Glucose, POC 189 (H) 70 - 100 MG/DL Specimen Performing Laboratory MAIN LAB [address] [place] [address] 12317 MAGNESIUM (01/06/2018 1:39 PM) Component Value Ref Range Magnesium 2.1 1.6 - 2.6 mg/dL Specimen Performing Laboratory Blood MAIN LAB [address] [place] [address] 73253 POC GLUCOSE (01/06/2018 11:11 AM) Component Value Ref Range Glucose, POC 207 (H) 70 - 100 MG/DL Specimen Performing Laboratory MAIN LAB [address] [place] [address] 18212 POC GLUCOSE (01/06/2018 7:35 AM) Component Value Ref Range Glucose, POC 151 (H) 70 - 100 MG/DL Specimen Performing Laboratory MAIN LAB [address] [place] [address] 08409 CBC AND DIFF (01/06/2018 3:14 AM) Component [...] K/UL Specimen Performing Laboratory Blood MAIN LAB [address] [place] [address] 42862 IONIZED CALCIUM (01/06/2018 3:14 AM) Component Value Ref Range Ionized Calcium 1.21 1.0 - 1.3 MMOL/L Specimen Performing Laboratory Blood MAIN LAB [address] [place] [address] 33085 PHOSPHORUS (01/06/2018 3:14 AM) Component Value Ref Range Phosphorus 3.0 2.0 - 4.0 MG/DL Specimen Performing Laboratory Blood MAIN LAB [address] [place] [address] 13266 MAGNESIUM (01/06/2018 3:14 AM) Component Value Ref Range Magnesium 1.9 1.6 - 2.6 mg/dL Specimen Performing Laboratory Blood MAIN LAB [address] [place] [address] 57508 BASIC METABOLIC PANEL (01/06/2018 3:14 AM) Component [...] questions. Specimen Performing Laboratory Blood MAIN LAB [address] [place] [address] 38826 POC GLUCOSE (01/05/2018 9:58 PM) Component Value Ref Range Glucose, POC 155 (H) 70 - 100 MG/DL Specimen Performing Laboratory MAIN LAB [address] [place] [address] 55991 POC GLUCOSE (01/05/2018 5:47 PM) Component Value Ref Range Glucose, POC 204 (H) 70 - 100 MG/DL Specimen Performing Laboratory MAIN LAB [address] [place] [address] 94632 POC GLUCOSE (01/05/2018 11:35 AM) Component Value Ref Range Glucose, POC 220 (H) 70 - 100 MG/DL Specimen Performing Laboratory MAIN LAB [address] [place] [address] 12517 US DOPPLER VENOUS BILATERAL (01/05/2018 9:41 AM) [...] Interface, Radiant Results - 01/05/2018 7:22 PM [facility] THINNER Doppler lower extremity ultrasound Clinical Indication: Female, [...] Specimen Performing Laboratory [facility] [address] [place] [address] BETA HYDROXYBUTYRATE (KETONES) (01/05/2018 4:16 AM) Component Value Ref Range Beta Hydroxybutyrate 0.1 <0.3 MMOL/L Comment: Beta hydroxybutyrate (BOHB) is the most abundant ketone (78%), followed by acetoacetate (20%) and acetone (2%).Measurement BOHB is recommended to assess ketones in DKA. Expected BOHB Results for DKA: Initial presentation high/increasing During treatment decreasing Resolved decreasing/normal Specimen Performing Laboratory MAIN LAB [address] [place] [address] 71070 CBC AND DIFF (01/05/2018 4:16 AM) Component [...] K/UL Specimen Performing Laboratory Blood MAIN LAB [address] [place] [address] 75028 IONIZED CALCIUM (01/05/2018 4:16 AM) Component Value Ref Range Ionized Calcium 1.11 1.0 - 1.3 MMOL/L Specimen Performing Laboratory Blood MAIN LAB [address] [place] [address] 10153 PHOSPHORUS (01/05/2018 4:16 AM) Component Value Ref Range Phosphorus 3.4 2.0 - 4.0 MG/DL Specimen Performing Laboratory Blood MAIN LAB [address] [place] [address] 09948 MAGNESIUM (01/05/2018 4:16 AM) Component Value Ref Range Magnesium 2.0 1.6 - 2.6 mg/dL Specimen Performing Laboratory Blood [facility] [address] [place] [address] 48363 BASIC METABOLIC PANEL (01/05/2018 4:16 AM) Component [...] Pharmacist for questions. Specimen Performing Laboratory Blood [facility] [address] [place] [address] 29347 POC GLUCOSE (01/04/2018 8:14 PM) Component Value Ref Range Glucose, POC 195 (H) 70 - 100 MG/DL Specimen Performing Laboratory [facility] [address] [place] [address] 98595 POC GLUCOSE (01/04/2018 4:22 PM) Component Value Ref Range Glucose, POC 222 (H) 70 - 100 MG/DL Specimen Performing Laboratory MAIN LAB [address] [place] [address] 97844 POC GLUCOSE (01/04/2018 12:08 PM) Component Value Ref Range Glucose, POC 244 (H) 70 - 100 MG/DL Specimen Performing Laboratory [facility] [address] [place] [address] 14917 POC GLUCOSE (01/04/2018 6:46 AM) Component Value Ref Range Glucose, POC 153 (H) 70 - 100 MG/DL Specimen Performing Laboratory [facility] [address] [place] [address] 19047 CBC AND DIFF (01/04/2018 3:45 AM) Component [...] K/UL Specimen Performing Laboratory Blood MAIN LAB [address] [place] [address] 79876 IONIZED CALCIUM (01/04/2018 3:45 AM) Component Value Ref Range Ionized Calcium 1.12 1.0 - 1.3 MMOL/L Specimen Performing Laboratory Blood MAIN LAB [address] [place] [address] 60854 PHOSPHORUS (01/04/2018 3:45 AM) Component Value Ref Range Phosphorus 3.1 2.0 - 4.0 MG/DL Specimen Performing Laboratory Blood MAIN LAB [address] [place] [address] 68186 MAGNESIUM (01/04/2018 3:45 AM) Component Value Ref Range Magnesium 1.8 1.6 - 2.6 mg/dL Specimen Performing Laboratory Blood MAIN LAB [address] [place] [address] 78086 BASIC METABOLIC PANEL (01/04/2018 3:45 AM) Component [...] Pharmacist for questions. Specimen Performing Laboratory Blood [facility] [address] [place] [address] 95072 POC GLUCOSE (01/03/2018 8:42 PM) Component Value Ref Range Glucose, POC 206 (H) 70 - 100 MG/DL Specimen Performing Laboratory [facility] [address] [place] [address] 20080 POC GLUCOSE (01/03/2018 4:35 PM) Component Value Ref Range Glucose, POC 174 (H) 70 - 100 MG/DL Specimen Performing Laboratory [facility] [address] [place] [address] 37005 POC GLUCOSE (01/03/2018 11:56 AM) Component Value Ref Range Glucose, POC 184 (H) 70 - 100 MG/DL Specimen Performing Laboratory [facility] [address] [place] [address] 78054 CBC AND DIFF (01/03/2018 9:22 AM) Component [...] K/UL Specimen Performing Laboratory Blood MAIN LAB [address] [place] [address] 02536 POC GLUCOSE (01/03/2018 8:31 AM) Component Value Ref Range Glucose, POC 142 (H) 70 - 100 MG/DL Specimen Performing Laboratory MAIN LAB [address] [place] [address] 97553 POC GLUCOSE (01/03/2018 6:30 AM) Component Value Ref Range Glucose, POC 173 (H) 70 - 100 MG/DL Specimen Performing Laboratory [facility] [address] [place] [address] 64350 IONIZED CALCIUM (01/03/2018 3:40 AM) Component Value Ref Range Ionized Calcium 1.14 1.0 - 1.3 MMOL/L Specimen Performing Laboratory Blood [facility] [address] [place] [address] 47499 PHOSPHORUS (01/03/2018 3:40 AM) Component Value Ref Range Phosphorus 3.1 2.0 - 4.0 MG/DL Specimen Performing Laboratory Blood [facility] [address] [place] [address] 31742 MAGNESIUM (01/03/2018 3:40 AM) Component Value Ref Range Magnesium 2.0 1.6 - 2.6 mg/dL Specimen Performing Laboratory Blood [facility] [address] [place] [address] 54797 BASIC METABOLIC PANEL (01/03/2018 3:40 AM) Component [...] Pharmacist for questions. Specimen Performing Laboratory Blood [facility] [address] [place] [address] 83485 POC GLUCOSE (01/02/2018 8:43 PM) Component Value Ref Range Glucose, POC 218 (H) 70 - 100 MG/DL Specimen Performing Laboratory MAIN LAB [address] [place] [address] 98717 POC GLUCOSE (01/02/2018 5:22 PM) Component Value Ref Range Glucose, POC 199 (H) 70 - 100 MG/DL Specimen Performing Laboratory [facility] [address] [place] [address] 05036 POC GLUCOSE (01/02/2018 11:10 AM) Component Value Ref Range Glucose, POC 203 (H) 70 - 100 MG/DL Specimen Performing Laboratory [facility] [address] [place] [address] 35653 POC GLUCOSE (01/02/2018 6:57 AM) Component Value Ref Range Glucose, POC 136 (H) 70 - 100 MG/DL Specimen Performing Laboratory [facility] [address] [place] [address] 23025 IONIZED CALCIUM (01/02/2018 3:20 AM) Component Value Ref Range Ionized Calcium 1.18 1.0 - 1.3 MMOL/L Specimen Performing Laboratory Blood [facility] [address] [place] [address] 63080 PHOSPHORUS (01/02/2018 3:20 AM) Component Value Ref Range Phosphorus 3.6 2.0 - 4.0 MG/DL Specimen Performing Laboratory Blood [facility] [address] [place] [address] 17556 MAGNESIUM (01/02/2018 3:20 AM) Component Value Ref Range Magnesium 2.1 1.6 - 2.6 mg/dL Specimen Performing Laboratory Blood [facility] [address] [place] [address] 08717 BASIC METABOLIC PANEL (01/02/2018 3:20 AM) Component [...] Specimen Performing Laboratory Blood MAIN LAB [address] [place] [address] CBC AND DIFF (01/02/2018 3:20 AM) Component [...] Specimen Performing Laboratory Blood MAIN LAB [address] [place] [address] POC GLUCOSE (01/01/2018 8:07 PM) Component Value Ref Range Glucose, POC 126 (H) 70 - 100 MG/DL Specimen Performing Laboratory MAIN LAB [address] [place] [address] POC GLUCOSE (01/01/2018 4:19 PM) Component Value Ref Range Glucose, POC 265 (H) 70 - 100 MG/DL Specimen Performing Laboratory MAIN LAB [address] [place] [address] 47244 POC GLUCOSE (01/01/2018 11:34 AM) Component Value Ref Range Glucose, POC 296 (H) 70 - 100 MG/DL Specimen Performing Laboratory MAIN LAB [address] [place] [address] 80612 POC GLUCOSE (01/01/2018 6:17 AM) Component Value Ref Range Glucose, POC 243 (H) 70 - 100 MG/DL Specimen Performing Laboratory MAIN LAB [address] [place] [address] 10629 IONIZED CALCIUM (01/01/2018 5:28 AM) Component Value Ref Range Ionized Calcium 1.23 1.0 - 1.3 MMOL/L Specimen Performing Laboratory Blood [facility] [address] [place] [address] 12418 PHOSPHORUS (01/01/2018 5:28 AM) Component Value Ref Range Phosphorus 3.4 2.0 - 4.0 MG/DL Specimen Performing Laboratory Blood [facility] [address] [place] [address] 36489 MAGNESIUM (01/01/2018 5:28 AM) Component Value Ref Range Magnesium 2.1 1.6 - 2.6 mg/dL Specimen Performing Laboratory Blood [facility] [address] [place] [address] 42188 BASIC METABOLIC PANEL (01/01/2018 5:28 AM) Component [...] questions. Specimen Performing Laboratory Blood MAIN LAB [address] [place] [address] 76446 CBC AND DIFF (01/01/2018 5:28 AM) Component [...] K/UL Specimen Performing Laboratory Blood MAIN LAB [address] [place] [address] 08321 UA REFLEX CULTURE LABEL (12/31/2017 11:45 PM) Component Value Ref Range UA Reflex Culture LAB LABEL Specimen Performing Laboratory Urine MAIN LAB [address] [place] [address] 30382 URINALYSIS MICROSCOPIC REFLEX TO CULTURE (12/31/2017 11:45 PM) Component Value Ref Range WBCs,UA 2-10 0 - 2 /HPF RBCs,UA 0-2 0 - 3 /HPF Comment,UA Urine submitted for reflex culture if criteria are met:WBC>10, positive nitrite and/or >=1+ leukocyte esterase. If quantity is not sufficient, an addendum will follow. Squamous Epithelial Cells 0-2 0 - 5 Specimen Performing Laboratory Urine MAIN LAB [address] [place] [address] 35361 URINALYSIS DIPSTICK REFLEX TO CULTURE (12/31/2017 11:45 PM) Component Value Ref Range Color,UA YELLOW Turbidity,UA CLEAR CLEAR-CLEAR Specific [place]-Urine 1.027 1.003 - 1.035 pH,UA 6.0 5.0 - 8.0 Protein,UA 1+ (A) NEG-NEG Glucose,UA NEG NEG-NEG Ketones,UA 1+ (A) NEG-NEG Bilirubin,UA NEG NEG-NEG Blood,UA NEG NEG-NEG Urobilinogen,UA NORMAL NORM-NORMAL Nitrite,UA NEG NEG-NEG Leukocytes,UA NEG NEG-NEG Urine Ascorbic Acid, UA NEG NEG-NEG Specimen Performing Laboratory Urine [facility] [address] [place] [address] 63326 POC GLUCOSE (12/31/2017 10:03 PM) Component Value Ref Range Glucose, POC 229 (H) 70 - 100 MG/DL Specimen Performing Laboratory [address] [address] POC GLUCOSE (12/31/2017 4:42 PM) Component Value Ref Range Glucose, POC 208 (H) 70 - 100 MG/DL Specimen Performing Laboratory [address] 76967 POC GLUCOSE (12/31/2017 12:00 PM) Component Value Ref Range Glucose, POC 245 (H) 70 - 100 MG/DL Specimen Performing Laboratory [address] 83307 POC GLUCOSE (12/31/2017 7:50 AM) Component Value Ref Range Glucose, POC 175 (H) 70 - 100 MG/DL Specimen Performing Laboratory [address] 05004 POC GLUCOSE (12/31/2017 3:03 AM) Component Value Ref Range Glucose, POC 198 (H) 70 - 100 MG/DL Specimen Performing Laboratory [address] 74051 IONIZED CALCIUM (12/31/2017 3:03 AM) Component Value Ref Range Ionized Calcium 1.09 1.0 - 1.3 MMOL/L Specimen Performing Laboratory Blood [address] 59885 PHOSPHORUS (12/31/2017 3:03 AM) Component Value Ref Range Phosphorus 2.4 2.0 - 4.0 MG/DL Specimen Performing Laboratory Blood [address] 68774 MAGNESIUM (12/31/2017 3:03 AM) Component Value Ref Range Magnesium 2.0 1.6 - 2.6 mg/dL Specimen Performing Laboratory Blood MAIN LAB [address] [place] [address] BASIC METABOLIC PANEL (12/31/2017 3:03 AM) Component [...] Specimen Performing Laboratory Blood MAIN LAB [address] [place] [address] CBC AND DIFF (12/31/2017 3:03 AM) Component [...] - 0.20 K/UL Specimen Performing Laboratory Blood [facility] [address] [place] [address] 13617 POC GLUCOSE (12/30/2017 9:30 PM) Component Value Ref Range Glucose, POC 242 (H) 70 - 100 MG/DL Specimen Performing Laboratory [facility] [address] [place] [address] 90596 POC GLUCOSE (12/30/2017 4:21 PM) Component Value Ref Range Glucose, POC 148 (H) 70 - 100 MG/DL Specimen Performing Laboratory [facility] [address] [place] [address] 50136 POC GLUCOSE (12/30/2017 11:59 AM) Component Value Ref Range Glucose, POC 142 (H) 70 - 100 MG/DL Specimen Performing Laboratory [facility] [address] [place] [address] 20354 MAGNESIUM (12/30/2017 10:31 AM) Component Value Ref Range Magnesium 2.2 1.6 - 2.6 mg/dL Specimen Performing Laboratory Blood [facility] [address] [place] [address] 14669 POTASSIUM (12/30/2017 10:31 AM) Component Value Ref Range Potassium 3.8 3.5 - 5.1 MMOL/L Specimen Performing Laboratory Blood [facility] [address] [place] [address] 01304 POC GLUCOSE (12/30/2017 8:28 AM) Component Value Ref Range Glucose, POC 130 (H) 70 - 100 MG/DL Specimen Performing Laboratory [facility] [address] [place] [address] 94139 POC GLUCOSE (12/30/2017 5:52 AM) Component Value Ref Range Glucose, POC 144 (H) 70 - 100 MG/DL Specimen Performing Laboratory [facility] [address] [place] [address] 97826 POC GLUCOSE (12/30/2017 4:32 AM) Component Value Ref Range Glucose, POC 153 (H) 70 - 100 MG/DL Specimen Performing Laboratory [facility] [address] [place] [address] 60070 CTA HEAD WO/W CONTR+POST PRO (12/30/2017 4:18 AM) Specimen Performing Laboratory RAD RESULTS Impressions 1.Interval left pterional craniotomy [...] Interface, Radiant Results - 12/30/2017 12:48 PM [facility] THINNER EXAM: CTA HEAD HISTORY: Female, 72 years. [...] 100 MG/DL Specimen Performing Laboratory MAIN LAB [address] [place] [address] 24921 TROPONIN-I (12/30/2017 2:05 AM) Component Value Ref Range Troponin-I 0.03 0.0 - 0.05 NG/ML Specimen Performing Laboratory MAIN LAB [address] [place] [address] 82057 IONIZED CALCIUM (12/30/2017 2:05 AM) Component Value Ref Range Ionized Calcium 1.15 1.0 - 1.3 MMOL/L Specimen Performing Laboratory Blood MAIN LAB [address] [place] [address] 23772 PHOSPHORUS (12/30/2017 2:05 AM) Component Value Ref Range Phosphorus 2.9 2.0 - 4.0 MG/DL Specimen Performing Laboratory Blood MAIN LAB [address] [place] [address] MAGNESIUM (12/30/2017 2:05 AM) Component Value Ref Range Magnesium 1.5 (L) 1.6 - 2.6 mg/dL Specimen Performing Laboratory Blood MAIN LAB [address] [place] [address] BASIC METABOLIC PANEL (12/30/2017 2:05 AM) Component [...] Specimen Performing Laboratory Blood MAIN LAB [address] [place] [address] CBC AND DIFF (12/30/2017 2:05 AM) Component [...] - 0.20 K/UL Specimen Performing Laboratory Blood [facility] [address] [place] [address] 34915 POC GLUCOSE (12/30/2017 2:03 AM) Component Value Ref Range Glucose, POC 140 (H) 70 - 100 MG/DL Specimen Performing Laboratory [facility] [address] [place] [address] 88672 POC GLUCOSE (12/30/2017 1:09 AM) Component Value Ref Range Glucose, POC 129 (H) 70 - 100 MG/DL Specimen Performing Laboratory [facility] [address] [place] [address] 69064 POC GLUCOSE (12/30/2017 12:17 AM) Component Value Ref Range Glucose, POC 150 (H) 70 - 100 MG/DL Specimen Performing Laboratory [facility] [address] [place] [address] 06469 POC GLUCOSE (12/29/2017 11:21 PM) Component Value Ref Range Glucose, POC 174 (H) 70 - 100 MG/DL Specimen Performing Laboratory [facility] [address] [place] [address] 15625 ECG-SCAN (12/29/2017 11:15 PM) Narrative Ordered by an unspecified provider. POC GLUCOSE (12/29/2017 10:12 PM) Component Value Ref Range Glucose, POC 170 (H) 70 - 100 MG/DL Specimen Performing Laboratory [facility] [address] [place] [address] 13915 POC GLUCOSE (12/29/2017 9:16 PM) Component Value Ref Range Glucose, POC 194 (H) 70 - 100 MG/DL Specimen Performing Laboratory [facility] [address] [place] [address] 76735 POC GLUCOSE (12/29/2017 8:13 PM) Component Value Ref Range Glucose, POC 160 (H) 70 - 100 MG/DL Specimen Performing Laboratory [facility] [address] [place] [address] 75756 POC GLUCOSE (12/29/2017 6:58 PM) Component Value Ref Range Glucose, POC 168 (H) 70 - 100 MG/DL Specimen Performing Laboratory [facility] [address] [place] [address] 79539 POC GLUCOSE (12/29/2017 6:01 PM) Component Value Ref Range Glucose, POC 202 (H) 70 - 100 MG/DL Specimen Performing Laboratory [facility] [address] [place] [address] 13077 POC GLUCOSE (12/29/2017 4:56 PM) Component Value Ref Range Glucose, POC 203 (H) 70 - 100 MG/DL Specimen Performing Laboratory [facility] [address] [place] [address] 73260 POC GLUCOSE (12/29/2017 3:55 PM) Component Value Ref Range Glucose, POC 217 (H) 70 - 100 MG/DL Specimen Performing Laboratory [address] [address] POC GLUCOSE (12/29/2017 3:12 PM) Component Value Ref Range Glucose, POC 230 (H) 70 - 100 MG/DL Specimen Performing Laboratory [address] [address] GLUCOSE,BG (12/29/2017 1:50 PM) Component Value Ref Range Glucose 228 (H) 70 - 100 MG/DL Specimen Performing Laboratory Blood [address] [address] HEMOGLOBIN & HEMATOCRIT, BG (12/29/2017 1:50 PM) Component Value Ref Range Hemoglobin BG 11.0 (L) 12.0 - 15.0 GM/DL Hematocrit BG 33.8 (L) 36 - 45 % Specimen Performing Laboratory Blood [facility] [address] [place] [address] 48075 SODIUM,BG (12/29/2017 1:50 PM) Component Value Ref Range Sodium 136 (L) 137 - 147 MMOL/L Specimen Performing Laboratory Blood [address] [address] POTASSIUM, BG (12/29/2017 1:50 PM) Component Value Ref Range Potassium 4.3 3.5 - 5.1 MMOL/L Specimen Performing Laboratory Blood [facility] [address] [place] [address] LACTIC ACID (BG - RAPID LACTATE) (12/29/2017 1:50 PM) Component Value Ref Range Lactic Acid,BG 1.2 0.5 - 2.0 MMOL/L Specimen Performing Laboratory Blood MAIN LAB [address] [place] [address] IONIZED CALCIUM,BG (12/29/2017 1:50 PM) Component Value Ref Range Ionized Calcium 1.12 1.0 - 1.3 MMOL/L Specimen Performing Laboratory Blood MAIN LAB [address] [place] [address] BLOOD GASES, ARTERIAL (12/29/2017 1:50 PM) Component Value Ref Range pH-Arterial 7.38 7.35 - 7.45 pCO2-Arterial 31 (L) 35 - 45 MMHG pO2-Arterial 192 (H) 80 - 100 MMHG Base Deficit-Arterial 5.9 MMOL/L O2 Sat-Arterial 99.6 (H) 95 - 99 % Nzhgirbxmix-FVN-Dnl 19.6 (L) 21 - 28 MMOL/L Specimen Performing Laboratory Blood, arterial - Blood MAIN LAB [address] [place] [address] BLOOD TYPE CONFIRMATION - ORDER ONLY IF REQUESTED BY LAB (12/29/2017 12:01 PM) Component Value Ref Range ABO/RH(D) A NEG Specimen Performing Laboratory Blood MAIN LAB [address] [place] [address] IR ARTERIOGRAM NEURO (12/29/2017 10:56 AM) Specimen [...] Neurointerventionalist:Ruben Helm MD Contrast - 200 cc [id number] Total mGy - 1821 Anesthesia: General endotracheal [...] establishing arterial access. RCCA Technique A 5 [place] 100 cm Vert catheter was advanced over a 150 cm 0.035 [place] wire over the aortic arch and into [...] under fluoroscopic and roadmap guidance over the [place] wire and images were obtained in biplane [...] Interface, Radiant Results - 12/29/2017 3:10 PM WEEDER THINNER Cerebral Angiogram Indication - SAH Procedures Performed [...] Ruben Helm MD Contrast - 200 cc [id number] Total mGy - 1821 Anesthesia: General endotracheal [...] establishing arterial access. RCCA Technique A 5 [place] 100 cm Vert catheter was advanced over a 150 cm 0.035 [place] wire over the aortic arch and into [...] under fluoroscopic and roadmap guidance over the [place] wire and images were obtained in biplane [...] Sat-Arterial 99.3 (H) 95 - 99 % Izkjvezarcu-VJN-Tve 20.5 (L) 21 - 28 MMOL/L Specimen Performing Laboratory [facility] [address] [place] [address] TYPE & CROSSMATCH (12/29/2017 10:45 AM) Component Value Ref Range Units Ordered 2 Crossmatch Expires 01/01/2018 Record Check 2ND TYPE REQUIRED ABO/RH(D) A NEG Antibody Screen NEG Electronic Crossmatch YES Unit Number [id number] Blood Component Type RBC,ADSOL,LEUKO REDUCED Unit Division 0 Status OF Unit REL FROM ALLOC Transfusion Status OK TO TRANSFUSE Crossmatch Result COMPATIBLE,ELECTRONIC Unit Number [id number] Blood Component Type RBC,ADSOL,LEUKO REDUCED,2ND CONT. Unit Division 0 Status OF Unit REL FROM ALLOC Transfusion Status OK TO TRANSFUSE Crossmatch Result COMPATIBLE,ELECTRONIC Specimen Performing Laboratory Blood [facility] [address] [place] [address] CTA HEAD WO/W CONTR+POST PRO (12/29/2017 7:00 [...] Santi Winslow M.D. on 12/29/2017 8:24 AM. Narrative Exam: [...] Interface, Radiant Results - 12/29/2017 8:39 AM WEEDER THINNER Exam: CTA of the head. History: Subarachnoid [...] an A1c level <7%. Specimen Performing Laboratory [place] [id number] IONIZED CALCIUM (12/29/2017 5:44 AM) Component Value Ref Range Ionized Calcium 1.15 1.0 - 1.3 MMOL/L Specimen Performing Laboratory Blood MAIN LAB [address] [place] [address] LIPID PROFILE (12/29/2017 5:44 AM) Component Value [...] mg/dL. Specimen Performing Laboratory Blood MAIN LAB [address] [place] [address] LACTIC ACID(LACTATE) (12/29/2017 5:44 AM) Component Value Ref Range Lactic Acid 1.7 0.5 - 2.0 MMOL/L Specimen Performing Laboratory Blood MAIN LAB [address] [place] [address] PHOSPHORUS (12/29/2017 5:44 AM) Component Value Ref Range Phosphorus 3.2 2.0 - 4.0 MG/DL Specimen Performing Laboratory Blood MAIN LAB [address] [place] [address] MAGNESIUM (12/29/2017 5:44 AM) Component Value Ref Range Magnesium 1.5 (L) 1.6 - 2.6 mg/dL Specimen Performing Laboratory Blood MAIN LAB [address] [place] [address] COMPREHENSIVE METABOLIC PANEL (12/29/2017 5:44 AM) Component [...] questions. Specimen Performing Laboratory Blood MAIN LAB [address] [place] [address] PTT (APTT) (12/29/2017 5:44 AM) Component Value Ref Range APTT 24.8 21.0 - 39.0 SEC Specimen Performing Laboratory Blood MAIN LAB [address] [place] [address] PROTIME INR (PT) (12/29/2017 5:44 AM) Component Value Ref Range INR 1.1 0.8 - 1.2 Specimen Performing Laboratory Blood MAIN LAB [address] [place] [address] CBC AND DIFF (12/29/2017 5:44 AM) Component [...] Performing Laboratory Blood [facility] [address] [place] [address] in this encounter Visit Diagnoses Diagnosis Subarachnoid hemorrhage (HCC) Subarachnoid hemorrhage Admitting Diagnoses Diagnosis Ruptured Aneurysm Subarachnoid hemorrhage (HCC) Subarachnoid hemorrhage (HCC) Subarachnoid hemorrhage Administered Medications Inactive Administered Medications - up to 3 most recent administrations Medication Order MAR Action Action Date Dose Rate Site bacitracin (BACIIM) 50,000 Units in Given 12/29/2017 12:48 WEEDER THINNER 500 mL Other Ringer's 500 mL irrigation bottle 500 mL, INTRA-PROCEDURE MED, Starting 12/29/17 at 1248, Until 12/29/17 at 1643, Intra-op bacitracin topical ointment Given 12/29/2017 12:47 WEEDER THINNER 1 Dose Other INTRA-PROCEDURE MED, Starting 12/29/17 at 1247, Until 12/29/17 at 1643, Intra-op Given 12/29/2017 12:48 WEEDER THINNER 1 Dose Other lidocaine 1%/EPINEPHrine 1:100,000 injection Given 12/29/2017 12:47 WEEDER THINNER 7.5 mL Other INTRA-PROCEDURE MED, Starting 12/29/17 at 1247, Until 12/29/17 at 1643, Intra-op thrombin 5,000 unit topical solution Given 12/29/2017 12:48 WEEDER THINNER 5,000 Units Other INTRA-PROCEDURE MED, Starting 12/29/17 at 1248, Until 12/29/17 at 1643, Intra-op in this encounter
--- OUTSIDE RECORDS SUMMARY | 2018-01-13 17:05 | External Medical Summary | Encounter Summary ---
:1945 Author Organization [facility] Address [address] [place] [address] Phone Care Team Providers Name Role Phone Pastor Fatima MD Primary Care Provider Reason for Visit Auth/Cert Status Reason Specialty Diagnoses / Procedures Referred By Contact Referred To Contact Diagnoses Subarachnoid hemorrhage (HCC) Ruptured Aneurysm Subarachnoid hemorrhage (HCC) Encounter Details Date Type Department Care Team Description 12/29/2017 [facility]esthesia [facility] [address] [id number] Anesthesia Record Procedure Summary Procedure Name Responsible Anesthesia Start Anesthesia Stop Anesthesiologist Time Time IR ARTERIOGRAM NEURO Lul Vee MD 12/29/17 0834 12/29/17 1118 Events Date Time Event Comment 12/29/2017 0737 AN Equip Check 0834 Anes Start 0834 An Start Data 0842 An Induction The patient was reevaluated immediately before moderate or deep sedation use and before anesthesia induction. 0846 An Intubation 0858 Anesthesia Ready 0921 Proc Start [address] Vee notified of irregular heart rhythm. Pt returned to before strip captured. 1048 An Data Art Drawing labs 1048 Stat Labs Drawn 1058 Transport 1100 Quick Note Pt transported to [place] [address]. Vital Signs monitored and transported intubated and sedated on Propofol infusion. Transported with RT, RN, Dr. Vee, and Pam PALOMINO. 1117 Anes Handoff Transfer of anesthesia care to Marquis Burnett CRNA and Dr. Lul Smith 1118 An Stop 1127 an alpesh now shayan 1651 Handoff to RN I completed my SBAR handoff to the receiving nurse. Name Total fentaNYL PF (SUBLIMAZE) injection 100 mcg lidocaine (2%) 200 mg/10mL Injection syringe 100 mg propofol (DIPRIVAN) 200 mg/ 20 mL injection (VIAL) 200 mg rocuronium (ZEMURON) injection 60 mg dexamethasone (DECADRON) 4 mg/mL injection 4 mg phenylephrine (LYDIA-SYNEPHRINE) 0.1 mg/mL injection (SYRINGE) 650 mcg phenylephrine (LYDIA-SYNEPHRINE) 10 mg in sodium chloride 0.9% (NS) 250 mL IV 7.5 mg drip (std conc) ePHEDrine 50 mg/mL 50 mg in sodium chloride PF 0.9% 5 mL IV syringe 20 mg remifentanil (ULTIVA) 1 mg/3 mL 1,000 mcg in sodium chloride 0.9% (NS) 20 31.36 mcg mL Injection sodium chloride 0.9 % infusion 750 mL sodium chloride 0.9 % infusion 250 mL Agents Name O2 N2O Inspired Air Sevoflurane Inspired Sevoflurane Blood No blood administrations on file. Lines, Drains, and Airways Type Details Placement Removal Wounds (NOT for 12/29/17; 0510; Left; 12/29/17 0510 by Pressure Injuries) Back; Abrasion; and Malathi Peterson RN Bruise from fall Peripheral IV PreHospital Outside 12/29/17 0510 by 12/29/17 2216 by Facility; R; Hand; 20 Dejah Portillo, G; Cristobalodgeronny; RN 12/29/17; 2216 Peripheral IV 12/29/17; 0539; RN; L; 12/29/17 0539 by 12/30/17 0645 by Hand; 22 G; 1; Dejah Portillo, Dejah Ward, Dislodgement; 12/30/17; RN 0645 ETT 12/29/17; 0846; 12/29/17 0846 by 12/29/17 1635 by Ventilated by mask (1); Michael Posada SRNA [place], [place], Direct laryngoscopy, YUNI Stylet; Single-Lumen, Cuffed; 7mm; Mac; 3; Oral; 1-Full view of the glottis; 1 insertion attempt; Auscultation, ETCO2 Detector; 21 centimeters; Intubation by Dr. Vee. Atraumatic; dentition unchanged from pre-op; 12/29/17; 1635 Arterial Line 12/29/17; 0856 (created 12/29/17 0856 by 12/30/17 0216 by via procedure Lul Vee MD Kreszyn, Katelynn, documentation); L; RN Radial; 20 G; 12/30/17; 0216 Indwelling Urinary 12/29/17; 0905; Unit 12/29/17 0905 by 12/30/17 1100 by Catheter (Comment); 12/30/17; Rory Palma, Chantal Limon, 1100 RN Wounds (NOT for 12/29/17; 1047; 12/29/17 1047 by 01/05/181999 by Pressure Injuries) Anterior; Groin; Rory Palma, Montez Moon RN Puncture Wound; Arterial access; 01/05/18; 1999 Peripheral IV 12/29/17; 1119; 12/29/17 1119 by 12/30/17 0352 by Provider (Placed by Dr. Malloy, Lindsey Munroe Katelynn, Reese); R; Inner; BONDING MACHINE OPERATOR RN Forearm; 18 G; 1; Dislodgement; 12/30/17; 0352 in this encounter Social History Tobacco Use Types Packs/Day Years Used Date Never Assessed Sex Assigned at Date Recorded Not on file as of this encounter OR Notes Anesthesia Postprocedure Evaluation - Lul Vee MD - 12/31/2017 5:54 AM COVER STITCH MACHINE OPERATOR Post-Anesthesia Evaluation Name: Yarely Dillon : 1945 Age: 72 y.o. Sex: female Procedure Date: 12/29/2017 Procedure: Angiogram Surgeon: Rocco Post-Anesthesia Vitals Post Anesthesia Evaluation Note Evaluation location: other Perioperative Events Postoperative Status Perioperative Events This note is placed in order to close this patients anesthetic record. Please look to anethesia record continuance in the operating room for information and care documentation.Anesthesia Procedure Notes - Lul Vee MD - 12/29/2017 1:11 PM CSTAssociated Order(s): ANESTHESIA ARTERIAL LINE INSERTION Anesthesia Procedure: Arterial Line Placement A-LINE INSERTION [...] Observation: pt tolerated well Performed by: LUL VEE Authorized by: LUL VEE Anesthesia Preprocedure Evaluation - Michael Posada SRNA - 12/29/2017 7:55 AM CSTFormatting of this note may be different from the original. Anesthesia Pre-Procedure Evaluation Name: Yarely Dillon : 1945 Age: 72 y.o. Sex: female Procedure Date: 12/29/2017 Procedure: * No procedures listed * Physical Assessment Vital Signs (last filed in past 24 hours): BP: 156/52 (12/29 699) Temp: 36.6 C (97.9 F) (12/29 509) Pulse: 75 (12/29 699) Respirations: 16 PER MINUTE (12/29 699) SpO2: 98 % (12/29 699) O2 Delivery: None (Room Air) (12/29 599) Patient History Allergies Allergen Reactions Codeine UNKNOWN Penicillins UNKNOWN Current Medications Not on File Review of Systems/Medical History Patient summary reviewed [...] monitoring Induction method: intravenous NPO status: acceptable Informed Consent Anesthetic plan and risks discussed with patient. Use of blood products discussed with patient; consented to blood products. Plan discussed with: SRNA, anesthesiologist and surgeon/proceduralist. in this encounter Plan of Treatment Not on fileas of this encounter Results ANESTHESIA ARTERIAL LINE INSERTION (12/29/2017 1:11 PM) [...] Observation: pt tolerated well Performed by: LUL VEE Authorized by: LUL VEE in this encounter Visit Diagnoses Not on filein this encounter Administered Medications Inactive Administered Medications - up to 3 most recent administrations Medication Order MAR Action Action Date Dose Rate Site dexamethasone (DECADRON) injection Given 12/29/2017 09:20 COVER STITCH MACHINE OPERATOR 4 mg Intravenous, INTRA-PROCEDURE MED, Starting 12/29/17 at 0920, Until 12/29/17 at 1158, Nausea/Vomiting Injectable, Anesthesia Intra-op ePHEDrine 50 mg/mL 50 mg in sodium Given - New Bag 12/29/2017 09:40 COVER STITCH MACHINE OPERATOR 10 mg chloride PF 0.9% 5 mL IV syringe 5 mL, INTRA-PROCEDURE MED(CONT), Starting 12/29/17 at 0940, Until Discontinued, Anesthesia Intra-op Bolus 12/29/2017 09:50 COVER STITCH MACHINE OPERATOR 5 mg Bolus 12/29/2017 10:27 COVER STITCH MACHINE OPERATOR 5 mg fentaNYL citrate PF (SUBLIMAZE) injection Given 12/29/2017 08:36 COVER STITCH MACHINE OPERATOR 50 mcg INTRA-PROCEDURE MED, Starting 12/29/17 at 0836, Until 12/29/17 at 1158, Pain Injectable, Anesthesia Intra-op Given 12/29/2017 08:41 COVER STITCH MACHINE OPERATOR 50 mcg lidocaine (PF) injection Given 12/29/2017 08:42 COVER STITCH MACHINE OPERATOR 100 mg INTRA-PROCEDURE MED, Starting Thu12/29/17 at 0842, Until Thu12/29/17 at 1158, Anesthesia Intra-op phenylephrine Dose/Rate Change 12/29/2017 10:19 0.6 mcg/kg/min 88.2 mL/hr (LYDIA-SYNEPHRINE) 10 mg COVER STITCH MACHINE OPERATOR in sodium chloride 0.9% (NS) 250 mL IV drip (std conc) 250 mL, INTRA-PROCEDURE MED(CONT), Starting Thu12/29/17 at 0915, Until Discontinued, Anesthesia Intra-op Dose/Rate Change 12/29/2017 10:26 COVER STITCH MACHINE OPERATOR 0.8 mcg/kg/min 117.6 mL/hr Dose/Rate Change 12/29/2017 10:36 COVER STITCH MACHINE OPERATOR 0.6 mcg/kg/min 88.2 mL/hr phenylephrine in NS Injection Given 12/29/2017 09:08 COVER STITCH MACHINE OPERATOR 100 mcg Intravenous, INTRA-PROCEDURE MED, Starting Thu12/29/17 at 0855, Until Thu12/29/17 at 1158, Symptomatic Hypotension, Anesthesia Intra-op Given 12/29/2017 10:08 COVER STITCH MACHINE OPERATOR 50 mcg Given 12/29/2017 10:09 COVER STITCH MACHINE OPERATOR 50 mcg propofol (DIPRIVAN) injection Given 12/29/2017 08:42 COVER STITCH MACHINE OPERATOR 130 mg INTRA-PROCEDURE MED, Starting Thu12/29/17 at 0842, Until Thu12/29/17 at 1158, Anesthesia Intra-op Given 12/29/2017 11:00 COVER STITCH MACHINE OPERATOR 30 mg Given 12/29/2017 11:10 COVER STITCH MACHINE OPERATOR 40 mg remifentanil (ULTIVA) 1 mg/3 mL Given - New 12/29/2017 11:32 0.04 mcg/kg/min 4.7 mL/hr 1,000 mcg in sodium chloride Bag COVER STITCH MACHINE OPERATOR 0.9% (NS) 20 mL Injection INTRA-PROCEDURE MED(CONT), Starting Thu12/29/17 at 1132, Until Thu12/29/17 at 1158, Anesthesia Intra-op Dose/Rate Change 12/29/2017 11:40 COVER STITCH MACHINE OPERATOR 0.07 mcg/kg/min 8.2 mL/hr rocuronium (ZEMURON) injection Given 12/29/2017 08:43 COVER STITCH MACHINE OPERATOR 50 mg Intravenous, INTRA-PROCEDURE MED, Starting 12/29/17 at 0843, Until 12/29/17 at 1158, Anesthesia Intra-op Given 12/29/2017 09:45 COVER STITCH MACHINE OPERATOR 10 mg sodium chloride 0.9 % infusion Given - New Bag 12/29/2017 05:33 COVER STITCH MACHINE OPERATOR 75 mL/hr 1,000 mL, Intravenous, at 75 mL/hr, CONTINUOUS, Starting 12/29/17 at 0315, Until 12/29/17 at 1737 Given - New Bag 12/29/2017 08:34 COVER STITCH MACHINE OPERATOR sodium chloride 0.9 % infusion Given - New Bag 12/29/2017 08:41 COVER STITCH MACHINE OPERATOR 250 mL, 250 mL, Intravenous, at 0-300 mL/hr, CONTINUOUS, Starting 12/29/17 at 0615, Until 12/30/17 at 0855, Replace negative fluid balance 1:1 to maintain net zero. Given - New Bag 12/29/2017 11:20 COVER STITCH MACHINE OPERATOR Given - New Bag 12/30/2017 00:55 COVER STITCH MACHINE OPERATOR 250 mL 300 mL/hr in this encounter
--- OUTSIDE RECORDS SUMMARY | 2018-01-13 17:05 | External Medical Summary | Encounter Summary ---
:1945 Author Organization [facility] Address [address] [facility] [address] [place] [address] Phone Care Team Providers Name Role Phone Pastor Fatima MD Primary Care Provider Encounter Details Date Type Department Care Team Description 12/29/2017 Procedure [facility] [place] [address] Social History Tobacco Use Types Packs/Day Years Used Date Never Assessed Sex Assigned at Date Recorded Not on file as of this encounter Plan of Treatment Not on fileas of this encounter Visit Diagnoses Not on filein this encounter
--- OUTSIDE RECORDS SUMMARY | 2018-01-13 17:05 | External Medical Summary | Continuity of Care Document ---
:1945 Author Organization [facility] Allergies There is no data. Medications There is no data. Problems There is no data. Procedures There is no data. Results There is no data. Encounters ACCT No. Visit Discharge Status Pt. Type Provider Facility Loc./Unit Complaint Date/Time [id number] 10/27/2013 10/27/2013 CLS Outpatient 08:50:00 23:59:59
[2018-01-13 20:09] VITALS: BMI 36.1
[2018-01-13] MEDS ORDERED: Oxycodone *IR* 5 MG TABLET PO PRN (21:08)
[2018-01-13] MEDS: ACETAMINOPHEN 325 MG TABLET PO PRN (22:18)
[2018-01-13] MEDS: METFORMIN 500 MG TABLET PO SCH (22:19)
[2018-01-13] MEDS: SENNA + DOCUSATE TABLET PO SCH (22:19)
[2018-01-13] MEDS: GLYBURIDE 2.5 MG TABLET PO SCH (22:19)
[2018-01-13] MEDS: METHYLDOPA 250 MG TABLET PO SCH (22:32)
[2018-01-14] MEDS: METFORMIN 500 MG TABLET PO SCH ×2 (08:37→17:58)
[2018-01-14] MEDS: GLYBURIDE 2.5 MG TABLET PO SCH ×2 (08:37→17:57)
[2018-01-14] MEDS: METHYLDOPA 250 MG TABLET PO SCH ×2 (08:37→20:58)
[2018-01-14] MEDS: SENNA + DOCUSATE TABLET PO SCH ×3 (08:38→20:59)
[2018-01-14] MEDS: ACETAMINOPHEN 325 MG TABLET PO PRN ×3 (08:39→21:04)
--- NOTE | 2018-01-14 10:28 | IRU 24Hr Post Admit Eval ---
24 Hr Post Admission Physical - Relevant Changes Relevant Changes: No Reviewed: I have reviewed the patient's information and concur with the finding and results of the pre-admission screen. Certification: I certify the patient for rehabilitation. - Patient Condition (1) Traumatic brain injury Status: Acute Qualifiers: Encounter type: subsequent encounter Loss of consciousness presence/ duration: with LOC of 30 min or less Qualified Code(s): S06.9X1D - Unspecified intracranial injury with loss of consciousness of 30 minutes or less , subsequent encounter Code(s): S06.9X9A - Unspecified intracranial injury with loss of consciousness of unspecified duration, initial encounter Classification: Present on IRF Admission, IRF Tx That Should Address Diagnosis, Diagnosis Requiring Medical Follow Up Additional Information: Secondary to ruptured brain aneurysm (2) DM type 2 (diabetes mellitus, type 2) Status: Chronic Qualifiers: Diabetes mellitus complication status: without complication Diabetes mellitus intermediate designer insulin use: without custodial use Qualified Code(s): E11.9 - Type 2 diabetes mellitus without complications Code(s): E11.9 - Type 2 diabetes mellitus without complications Classification: Present on IRF Admission, IRF Tx That Should Address Diagnosis, Diagnosis Requiring Medical Follow Up (3) Hypertension Status: Chronic Qualifiers: Hypertension type: essential hypertension Qualified Code(s): I10 - Essential (primary) hypertension Code(s): I10 - Essential (primary) hypertension Classification: Present on IRF Admission, IRF Tx That Should Address Diagnosis, Diagnosis Requiring Medical Follow Up - Prior Functional Status Lives With: Spouse Residence Type: Apartment/Private Home Assitive Devices: None Prior Functional Status: Indep. at home or school, Indep. w/ IADL - Current Functional Status Current Level of Function: Patient currently requires minimum assistance for grooming, total assistance for bathing, maximum assistance for lower body dressing and minimum assistance for upper body dressing and toileting. She requires moderate assistance for bed/ chair/wheelchair transfers, minimum assistance for toilet transfers, total assistance with walking with a rolling walker 120 feet. She is an aspiration risk and speech therapy recommends 100% supervision while eating and drinking. She does have impaired safety awareness and impaired communication issues. She has decreased judgment/safety and cognitive deficits requiring repetition of instructions. Failed Alternative Therapy: Arrived from Acute Care Patient Requirements: The patient requires oversight by rehabilitation physician to manage their rehabilitation treatment plan and multidisciplinary approach to care that can only be provided in an IRF and requires a multidisciplinary approach to care, provided by professional PTs, OTs, STs, dieticians, RTs, rehabilitation nurses and is not available in lesser levels of care. Limitations Req: Mobility Impairment, ADL Impairment, Cognitive Impairment Therapy: The patient is to receive therapy at least 5 days a week. Plan of Care Comment: Physical therapy: 75 minutes 3 days weekly, 90 minutes 2 days weekly. Occupational therapy: 75 minutes 3 days weekly, 90 minutes 2 days weekly. Speech therapy: 30 minutes 3 days weekly - Complications/Comorbidities Impact on Functional Outcomes: Patient's severe fatigue and cognitive deficit may negatively impact her functional outcome. Barriers to Discharge: Weakness, Balance, Endurance, Comprehension - Plan to Avoid Complications Plan to Avoid Complications: The patient cannot receive this care in a lesser intensive setting such as Jail or Outpatient Therapy due to the patient requiring the following : Because of recent aneurysmal brain bleed resulting in traumatic brain injury, patient requires close 24 hour rehabilitation nursing monitoring of her neurologic status. She also requires close monitoring of her blood sugars because of variable energy demand resulting in either hyperglycemia or hypoglycemia. Finally, she requires close monitoring of her blood pressures to avoid hypotension or excessive blood pressures. She requires a multidisciplinary approach with PT, OT and probably speech therapy to allow her to return safely to her previous level of functioning.
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
--- NOTE | 2018-01-14 14:26 | Progress Note ---
Progress Note: Patient has declined to be involved in therapy or shower etc. She reports severe fatigue. Therapy will be held today. Discussed with patient and with certified wellness program manager. Patient was advised that she will need to participate with therapy tomorrow.
--- NOTE | 2018-01-14 16:01 | Consult Note ---
Consult Information - Data of Consult Consult date: 01/14/18 Requesting Physician: Joaquín Chou MD Primary Care Provider: Pastor Fatima MD Family Provider: Pastor Fatima MD - Consult Narrative Reason for consult: Medical management History of present illness: Terri Dillon is a 72 year old woman with a recent hx of SAH, secondary to anterior communicating artery aneurysm, s/p craniotomy and clipping on 12/29/17. This was diagnosed after a fall vs. syncopal event in the shower at home on . After losing consciousness, and n/v, her took her to [facility], where she was diagnosed with SAH, and she was emergently transferred to [facility]. CTA there showed an anterior communicating artery aneurysm. She was mildly thrombocytopenic on admission (137) at and GCS was 15. She had no focal neuro deficits, however had some postop encephalopathy and cognition difficulties. She was started on Keppra prophylactically. Her SBP goal was <140 and MAP >65; she was placed on nimodipine. A1c was 6.7% and she was on long- acting insulin during her course at [facility] (particularly while on decadron), but this was dc'd by the day of discharge and her oral agents were resumed. PT/OT recommended skilled therapy, and she was accepted to [facility] IRU. Most recent labs included in dc papers were done on 01/10/18, showing wbc 7.8, hgb 9.4, plt 196, na 135, k 4.3, bun 28, cr 0.76. Terri was seen on 01/14/[address] Chou. She was A&O x3 but drowsy and had a flat affect. She complained of being very tired and fatigued. She has quite a bit of leg swelling, which is new from her recent hospitalization. She has neck and back pain all the way up and down her spine. She denies fever/chills, dizziness, headache, acute visual changes, sinus problems, SOA, chest pain, palpitations, dysphagia, n/v/d, abdominal pain, or dysuria. She has a healing surgical incision to her left frontal area s/p craniotomy. She states that she's been checking her blood sugars at home and has had diabetes for about 8 years. Past Medical History SAH, secondary to anterior communicating artery aneurysm, s/p craniotomy and clipping on 12/29/17 HTN DM2 Parkinson's Obesity, BMI 36.1 Medical History Updates: Ruptured anterior communicating artery aneurysm 2017 Surgical History: 1. T&A. 2. Craniotomy for aneurysm clipping 12/29/2017 Dr. Schwartz at [facility] Family History Updates: Father at age 55 of a stroke. Mother also of a stroke in her 70s. Her brother has HTN and DM. - Social History Smoking status: Former smoker (<0.5 pack per day x 3 years; quit 53 years ago) Substance use type: does not use Alcohol intake frequency: other (beer/mixed drink weekly) Current residence: Apartment/Private Home Review of Systems All systems PM: 10-point ROS was reviewed, no additional remarkable complaints except - Constitutional Constitutional: Present: fatigue, weakness. Absent: chills, fever(s) - EENMT Eyes: Present: requires corrective lenses. Absent: change in vision Balance: Absent: vertigo Nose: Absent: obstruction Mouth/Throat: Absent: sore throat, changes in swallowing - Cardiovascular Cardiovascular: Absent: chest pain, palpitations Vascular: Present: pedal edema - Respiratory Respiratory: Absent: cough, dyspnea, wheezing - Gastrointestinal Gastrointestinal: Absent: abdominal pain, constipation, diarrhea - Genitourinary Genitourinary: Absent: dysuria - Musculoskeletal Musculoskeletal: Present: back pain, muscle weakness - Integumentary/Breasts Integumentary: Present: other (healing surgical incision from craniotomy to left frontal region). Absent: rash - Neurological Neurological: Present: weakness. Absent: confusion, dizziness, headache(s), numbness, paresthesias, vertigo - Psychiatric Psychiatric: Absent: anxiety - Endocrine Endocrine: Absent: palpitations - Hematologic/Lymphatic Hematologic/Lymphatic: Absent: easy bleeding, lymphadenopathy - Allergic/Immunologic Allergic/Immunologic: Absent: seasonal rhinorrhea Medications Home Medications Medication Instructions Recorded Confirmed Type Acetaminophen [Tylenol] 2 tab PO Q4H PRN 01/13/18 01/13/18 History GlyBURIDE [Micronase] 1 tab PO BIDWM 01/13/18 01/13/18 History HEPARIN 5,000unit/ml 0.5 ml SQ Q8H 01/13/18 01/13/18 History Metformin [Glucophage] 500 mg PO BIDWM 01/13/18 01/13/18 History Methyldopa [Aldomet] 250 mg PO BID 01/13/18 01/13/18 History Oxycodone *IR* [Roxicodone *Ir*] 1 tab PO Q4H PRN 01/13/18 01/13/18 History Sennosides/Docusate Sodium 1 tab PO BID 01/13/18 01/13/18 History [Senokot-S Tablet] Sodium Chloride Conc 8.5 ml PO TIDWM 01/13/18 01/13/18 History niMODipine [Nymalize] 2 cap PO Q4H 01/13/18 01/13/18 History Allergies Allergy/AdvReac Type Severity Reaction Status Date / Time codeine Allergy Verified 01/13/18 19:52 Penicillins Allergy Verified 01/13/18 19:52 Exam Vital Signs: Temperature 97.9 F 01/14/18 13:59 Pulse Rate 77 01/14/18 13:59 Respiratory Rate 20 01/14/18 13:59 Blood Pressure 150/56 H 01/14/18 13:59 Pulse Oximetry 97 01/14/18 13:59 Height/Weight/BMI: Height 1.7 m Weight 104.6 kg Body Mass Index 36.1 - Constitutional Present: no acute distress, well nourished, well developed, obese - Routine HEENT Exam Head: Present: normocephalic Eye: Present: EOMI, PERRL. Absent: conjunctival icterus, scleral injection ENT: Present: mucous membranes moist - Routine Neck Exam Present: supple - Routine Respiratory Exam Present: CTA bilaterally - Routine Cardiovascular Exam Present: irregular rhythm - Routine Abdominal Exam Present: soft, normoactive bowel sounds, non distended, non tender - Routine Extremities Exam Present: edema (1-2+ BLE pitting edema), normal capillary refill - Routine Skin Exam Present: intact, dry, pallor, warm, scars (healing surgical incision from craniotomy to left frontal region) - Routine Neurological Exam Present: alert, oriented X3, CN II-XII intact, moving all extremities, normal speech - Routine Psychiatric Exam Present: cooperative. Absent: normal affect (flat) Results - Labs CBC & Chem 7: 01/14/18 04:43 01/14/18 04:43 Assessment and Plan Assessment and Plan: IMPRESSION SAH, secondary to anterior communicating artery aneurysm - s/p craniotomy and clipping on 12/29/17 Postop encephalopathy HTN DM2, A1c 6.7% Parkinson's Obesity, BMI 36.1 PLAN Check EKG d/t irreg HR on auscultation Monitor bp closely; continue dc orders per [facility] which include discontinuation of nimodipine on 01/21/18, at which time aldactazide may be resumed. Monitor bgm. She required insulin while hospitalized at [facility] but was dc'd here on oral agents. Flat affect; monitor for situational depression Labs on admission: wbc normal 7.1, hgb low 9.7, plt 202 (N), K 4.3 (N), BUN 20 ( N), cr 0.7 (N) Heparin for VTE PPX Therapy orders and pain control per attending External records reviewed; discussed with Dr. Chou. DVT Prophylaxis: SQ Heparin Resuscitation Status: Full Code - Physician Narrative Physician: Darien Lynch MD Narrative: Date: 01/14/18 Time: 2109 Have independently interviewed and examined pt. Chart reviewed. Case discussed with my FULL TIME STAFF INTERPRETER. Above care plan developed with my supervision; agree with above. Admitted to IRU for restorative therapy following SAH, secondary to anterior communicating artery aneurysm (underwent craniotomy and clipping on 12/29/17). Rough day-very tired. Slept poorly last night. Nursing reports pt did not due any therapy today. Breathing well. Eating well-no ab pain or nausea. Lungs: clear bilaterally, no distress CV: irregular MSE: awake alert GEN: appears tired Plan: Agree with admission to IRU to maximize functional status. Encourage PT/ OT. Monitor sugars. Flatness of affect may be Parkinson's related-monitor mood. Medically stable for IRU floor activities. Hospital Course Summary Disclaimer: The visit summary below is not to be considered part of the above Progress Note. Hospital Course: 01/14 check EKG d/t irreg HR on auscultation monitor bp closely; continue dc orders per [facility] which include discontinuation of nimodipine on 01/21/18, at which time aldactazide may be resumed. monitor bgm. She required insulin while hospitalized at [facility] but was dc'd here on oral agents. flat affect; monitor for situational depression labs on admission: wbc normal 7.1, hgb low 9.7, plt 202 (N), K 4.3 (N), BUN 20 ( N), cr 0.7 (N) Heparin for VTE PPX therapy orders and pain control per attending
[2018-01-14] MEDS: HEPARIN SUB-Q 5,000units/0.5ml INJECTION SQ SCH (17:57)
[2018-01-15] MEDS: HEPARIN SUB-Q 5,000units/0.5ml INJECTION SQ SCH ×3 (01:07→17:21)
[2018-01-15] MEDS: ACETAMINOPHEN 325 MG TABLET PO PRN ×3 (06:22→21:09)
[2018-01-15] MEDS: METFORMIN 500 MG TABLET PO SCH ×2 (08:14→17:21)
[2018-01-15] MEDS: GLYBURIDE 2.5 MG TABLET PO SCH ×2 (08:14→17:21)
[2018-01-15] MEDS: METHYLDOPA 250 MG TABLET PO SCH ×2 (08:15→21:11)
[2018-01-15] MEDS: SENNA + DOCUSATE TABLET PO SCH ×2 (08:16→21:12)
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
--- NOTE | 2018-01-15 10:35 | IRU Plan of Care ---
U Overall Plan of Care - Date Date: 01/15/18 - Patient Impairments (1) Traumatic brain injury Qualifiers: Encounter type: subsequent encounter Loss of consciousness presence/ duration: with LOC of 30 min or less Qualified Code(s): S06.9X1D - Unspecified intracranial injury with loss of consciousness of 30 minutes or less , subsequent encounter Code(s): S06.9X9A - Unspecified intracranial injury with loss of consciousness of unspecified duration, initial encounter Status: Acute Classification: Present on IRF Admission, IRF Tx That Should Address Diagnosis, Diagnosis Requiring Medical Follow Up (2) DM type 2 (diabetes mellitus, type 2) Qualifiers: Diabetes mellitus complication status: without complication Diabetes mellitus director digital analytics insulin use: without director digital analytics use Qualified Code(s): E11.9 - Type 2 diabetes mellitus without complications Code(s): E11.9 - Type 2 diabetes mellitus without complications Status: Chronic Classification: Present on IRF Admission, IRF Tx That Should Address Diagnosis, Diagnosis Requiring Medical Follow Up (3) Hypertension Qualifiers: Hypertension type: essential hypertension Qualified Code(s): I10 - Essential (primary) hypertension Code(s): I10 - Essential (primary) hypertension Status: Chronic Classification: Present on IRF Admission, IRF Tx That Should Address Diagnosis, Diagnosis Requiring Medical Follow Up - Relevant Changes Relevant Changes: No Reviewed: I have reviewed the patient's information and concur with the finding and results of the pre-admission screen. Certification: I certify the patient for rehabilitation. - Medical Prognosis Medical Prognosis: Good Vital Signs: Last Vital Signs Temp 97.6 F 01/15/18 08:00 Pulse 91 01/15/18 08:15 Resp 16 01/15/18 08:00 BP 188/100 H 01/15/18 08:15 Pulse Ox 100 01/15/18 08:00 - Anticipated Interventions Anticipated Interventions: The patient requires inpatient IRF care for PT, OT, and/or ST for residuals remaining from subarachnoid hemorrhage resulting in traumatic brain injury resulting in muscular weakness and strength deficits. An individualized overall plan of care has been developed after careful review of the patient's preadmission screening, post admission physician evaluation and assessments of all therapy disciplines and/or other pertinent clinicians involved in treating the patient. This indicates medical necessity and rehabilitation necessity have been established through a thorough review of all available medical information. - Current Functional Status Failed Alternative Therapy: Arrived from Acute Care Patient Requires: The patient requires oversight by rehabilitation physician to manage their rehabilitation treatment plan and multidisciplinary approach to care that can only be provided in an IRF and requires a multidisciplinary approach to care, provided by professional PTs, OTs, STs, rehabilitation nurses, and may require STs, dieticians, and RTS. This is not available in lesser levels of care. Physical Therapy Minutes: 90 Occupational Therapy Minutes: 90 Therapy: The patient is to receive therapy at least [address] Treatment Plan: Evaluation Only ST Treatment Plan Duration: N/A ST Treatment Plan Frequency: N/A - Anticipated LOS/Outcomes Anticipated Functional Outcome: Expected functional improvements include: -- Modified independant to independant ambulation with or without assistive device -- Modified independant to independant ADL's with or without assistive device -- Return to pre-morbid level of mobility -- Maximize level of mobility and ADL's to decrease burden on any caregiver involved with this patient's care Anticipated Length of Stay (days): 10 Anticipated DC Destination: Home, Self Care, Home Health Service Home Safety Plan: The patient will be provided with the development of a Home Safety Plan for return to a home or home-like environment and and to ensure safety post discharge. - Plan to Avoid Complications Barriers to Attaining Goals: Weakness, Balance, Pain Control Plan to Avoid Complications: The patient cannot receive this care in a lesser intensive setting such as [facility] or Outpatient Therapy due to the patient requiring the following : Patient requires a multidisciplinary approach in view of her recent subarachnoid hemorrhage, diabetes mellitus and hypertension. She requires 24- hour rehabilitation nursing monitoring of her neurologic status and to reduce fall risk. She requires physical therapy and occupational therapy to return her to her prior level of functioning. She requires medical supervision in view of her medical problems. .
--- NOTE | 2018-01-15 10:39 | Progress Note ---
Progress Note: Patient's blood pressure came down to 152/64 after blood pressure medication was given.
--- NOTE | 2018-01-15 12:09 | XRay Report ---
Indication: Low back pain after fall at home PROCEDURE: XR lumbar spine 2-3V: Encounter: Initial Comparison: None Findings: Alignment of the lumbar spine is within normal limits. Subtle depression of the superior endplates at T12 and L1 of indeterminate age. Moderate disk space narrowing at L1-L2 and L4-L5. Degenerative facet disease at L4-S1. Impression: Age-indeterminate mild superior endplate deformities of T12 and L1. MRI could be performed for more sensitive evaluation. .
--- NOTE | 2018-01-15 13:19 | Progress Note ---
Progress Note: Patient's radiographs are reviewed. I do not see abnormalities although radiology noted superior and inferior endplates of T12-L1 possibly indicating age indeterminate injury. However, this is higher than she indicated to me that she was hurting. At this point I recommend waiting and watching.
[2018-01-16] MEDS: HEPARIN SUB-Q 5,000units/0.5ml INJECTION SQ SCH ×3 (01:24→17:17)
[2018-01-16] MEDS: ACETAMINOPHEN 325 MG TABLET PO PRN ×4 (06:19→23:57)
[2018-01-16] MEDS: METHYLDOPA 250 MG TABLET PO SCH ×2 (09:20→20:46)
[2018-01-16] MEDS: GLYBURIDE 2.5 MG TABLET PO SCH ×2 (09:20→17:17)
[2018-01-16] MEDS: METFORMIN 500 MG TABLET PO SCH ×2 (09:24→17:17)
[2018-01-16] MEDS: SENNA + DOCUSATE TABLET PO SCH ×2 (09:25→20:48)
[2018-01-17] MEDS: HEPARIN SUB-Q 5,000units/0.5ml INJECTION SQ SCH ×3 (00:41→17:54)
[2018-01-17] MEDS: ACETAMINOPHEN 325 MG TABLET PO PRN ×3 (08:56→20:32)
[2018-01-17] MEDS: METFORMIN 500 MG TABLET PO SCH ×2 (08:57→17:54)
[2018-01-17] MEDS: GLYBURIDE 2.5 MG TABLET PO SCH ×2 (08:57→17:54)
[2018-01-17] MEDS: METHYLDOPA 250 MG TABLET PO SCH ×2 (08:59→20:29)
[2018-01-17] MEDS: SENNA + DOCUSATE TABLET PO SCH ×2 (09:13→20:31)
[2018-01-18] MEDS: HEPARIN SUB-Q 5,000units/0.5ml INJECTION SQ SCH ×3 (00:48→17:39)
[2018-01-18] MEDS: METFORMIN 500 MG TABLET PO SCH ×2 (08:33→17:39)
[2018-01-18] MEDS: METHYLDOPA 250 MG TABLET PO SCH ×2 (08:33→21:18)
[2018-01-18] MEDS: GLYBURIDE 2.5 MG TABLET PO SCH ×2 (08:33→17:40)
[2018-01-18] MEDS: ACETAMINOPHEN 325 MG TABLET PO PRN ×2 (09:48→18:34)
[2018-01-18] MEDS: SENNA + DOCUSATE TABLET PO SCH ×2 (11:03→21:19)
--- NOTE | 2018-01-18 12:00 | IRU Progress Note ---
- Subjective/Serverity of Illness Date: 01/18/18 Pat was assist in her room on inpatient rehabilitation. is present. Patient denies any headaches or visual changes. Continues to have posterior neck and back pain which she states predated her subarachnoid hemorrhage. Neurologically she remains intact and stable. Does have some impulsiveness. Brief therapy update: For occupational therapy, bathing has improved from standby assist to modified independent. Both upper and lower body dressings have improved from standby assist to independent. Bed/chair/wheelchair transfers are now standby assist. For physical therapy, bed/chair/wheelchair transfers are modified independent. She is able to ambulate 160 feet with front- wheeled walker (modified independent level). Team meeting this noon. Update on medical issues we are monitoring and managing as follows: 1. 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 Remains neurologically stable. 2. Diabetes mellitus type 2: Blood sugars reviewed in detail. No evidence of excessive hyperglycemia nor hypoglycemia. 3. Hypertension: Blood pressures are improved at around 140-145. Exam Vital Signs: Temperature 98.9 F 01/18/18 08:00 Pulse Rate 78 01/18/18 08:33 Respiratory Rate 20 01/18/18 08:00 Blood Pressure 145/67 H 01/18/18 08:33 Pulse Oximetry 97 01/18/18 08:00 Height/Weight/BMI: Height 1.7 m Weight 104.6 kg Body Mass Index 36.1 - Constitutional Present: no acute distress, well nourished, well developed. Absent: cooperative (she continues to be a bit impulsive. She gets up on her own. Has been moved to a room closer to nursing station for safety.) - Routine HEENT Exam Head: Present: normocephalic Eye: Present: EOMI (no nystagmus observed today.), PERRL ENT: Present: mucous membranes moist - Routine Neck Exam Present: supple - Routine Respiratory Exam Present: CTA bilaterally. Absent: wheezes - Routine Cardiovascular Exam Present: RRR, S1, S2. Absent: murmur - Routine Abdominal Exam Present: soft, normoactive bowel sounds, non distended. Absent: tenderness - Routine Extremities Exam Present: edema (trace to 1+ edema.) - Routine Skin Exam Present: dry, warm - Routine Neurological Exam Present: alert, oriented X3, CN II-XII intact - Routine Psychiatric Exam Present: normal affect IRU A/P (1) Traumatic brain injury Qualifiers: Encounter type: subsequent encounter Loss of consciousness presence/ duration: with LOC of 30 min or less Qualified Code(s): S06.9X1D - Unspecified intracranial injury with loss of consciousness of 30 minutes or less , subsequent encounter Current visit: Yes Status: Acute Patient has been neurologically stable. She has made significant progress with regard to functional improvement. Team meeting this noon. (2) DM type 2 (diabetes mellitus, type 2) Qualifiers: Diabetes mellitus complication status: without complication Diabetes mellitus paver operator insulin use: without mcfp use Qualified Code(s): E11.9 - Type 2 diabetes mellitus without complications Current visit: Yes Status: Chronic Blood sugars are controlled at the present time. (3) Hypertension Qualifiers: Hypertension type: essential hypertension Qualified Code(s): I10 - Essential (primary) hypertension Current visit: Yes Status: Chronic Blood pressures are improved at around 140-145 systolic. (4) Peripheral edema Current visit: Yes Status: Acute Patient states edema started when she was hospitalized for her aneurysm clipping. Continues to have trace to 1+ edema. We will recheck the weight. DVT Prophylaxis: SQ Heparin Resuscitation Status: Full Code - Course Hospital Course: Joaquín Chou MD: 01/15/18 10:30 Barrier to therapy progress at present is low back pain. We will check low back films. Add heating pad as needed. Blood pressure up and discussed with hospitalist service. 01/18/18 12:02 Continues to complain of posterior neck and low back pain which predated the current bleed. Has peripheral edema. Blood pressures are improved. - Interventions to Obtain Goals PT Treatment Plan: Balance/Proprioception, Functional Activities, Gait Training , Patient/Family Education, Therapeutic Exercise OT Treatment Plan: ADL (Basic Care), Balance Training, IADL, Pt./Family Education, Ther. Exercise for ADL Goals Progress/Modifications: Time spent with patient and on floor reviewing data and documentin min Medical decision-making: Etiology of her peripheral edema is unclear. Perhaps it was due to increased sodium load at outside hospital. Could be related to dependency as well. No evidence of acute heart failure or renal failure. She does have some impulsiveness. We'll review her situation at team meeting this knee and. Functionally she is significantly improved. Neurologically she seems to be stable. Her blood pressures are improved as well.
--- NOTE | 2018-01-18 12:12 | Progress Note ---
Progress Note: Patient's weight was remeasured and is now 97.4 kg. This indicates a loss of some 7 kg since admission.
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
--- NOTE | 2018-01-18 13:37 | Progress Note ---
Progress Note: After conferring with the therapist, the patient will require use of a front wheeled walker at home in view of her traumatic brain injury due to subarachnoid hemorrhage. She is felt to be safe for dismissal with use of the walker. Length of need is 90 days.
--- NOTE | 2018-01-18 16:06 | Progress Note ---
Progress Note: Pat notes a burning reddish lesion on the right neck area. I went to inspected. It is less than 1 cm in diameter. It is red and minimally irritated. Appears to be consistent with some type of contact dermatitis. Has a reddish lesion which is excoriated just below that. She says it was present at the time of admission. No trauma has been noted although she thinks she may have scratched it. We will try some hydrocortisone.
[2018-01-18] MEDS: HYDROCORTISONE 1% CREAM 28.35gm TOP SCH (21:19)
[2018-01-18 21:25] VITALS: O2SAT 97
[2018-01-19] MEDS: ACETAMINOPHEN 325 MG TABLET PO PRN ×3 (00:31→11:27)
[2018-01-19] MEDS: HEPARIN SUB-Q 5,000units/0.5ml INJECTION SQ SCH ×2 (00:31→08:22)
[2018-01-19 07:23] VITALS: BP 158/60; PULSE 68; RESP 18; TEMP 96.5
[2018-01-19] MEDS: METFORMIN 500 MG TABLET PO SCH (08:23)
[2018-01-19] MEDS: METHYLDOPA 250 MG TABLET PO SCH (08:23)
[2018-01-19] MEDS: GLYBURIDE 2.5 MG TABLET PO SCH (08:23)
[2018-01-19] MEDS: SENNA + DOCUSATE TABLET PO SCH (08:24)
--- NOTE | 2018-01-19 10:28 | IRU Progress Note ---
- Subjective/Serverity of Illness Date: 01/19/18 Ms. Dillon is eagerly looking forward to going home. She reports some fatigue but no shortness of breath. She denies any headache. Continues to have the same posterior neck and back pain which she has complained about chronically. She denies any fever. Her appetite is good. I have placed a call to Dr. Schwartz's office with regard to the issue of continuing oral sodium chloride and continuing nimodipine. There is a conflict in the orders. Twenty-one days should have ended yesterday with regard to the nimodipine. However on discharge orders from it appears as though they want us to continue this through . I will clarify this and let the patient know. Exam Vital Signs: Temperature 96.5 F L 01/19/18 07:22 Pulse Rate 68 01/19/18 07:22 Respiratory Rate 18 01/19/18 07:22 Blood Pressure 158/60 H 01/19/18 07:22 Pulse Oximetry 97 01/19/18 07:22 Height/Weight/BMI: Height 1.7 m Weight 97.4 kg Body Mass Index 36.1 - Constitutional Present: no acute distress, obese, cooperative - Routine HEENT Exam Head: Present: normocephalic. Absent: atraumatic (wound from craniotomy healing well.) - Routine Neck Exam Present: supple - Routine Respiratory Exam Present: CTA bilaterally - Routine Cardiovascular Exam Present: RRR, S1, S2, no murmur - Routine Extremities Exam Present: no edema IRU A/P (1) Traumatic brain injury Qualifiers: Encounter type: subsequent encounter Loss of consciousness presence/ duration: with LOC of 30 min or less Qualified Code(s): S06.9X1D - Unspecified intracranial injury with loss of consciousness of 30 minutes or less , subsequent encounter Current visit: Yes Status: Resolved Patient has improved with regard to her functional deficits. She appears to be stable neurologically. (2) DM type 2 (diabetes mellitus, type 2) Qualifiers: Diabetes mellitus complication status: without complication Diabetes mellitus long-term insulin use: without long-term use Qualified Code(s): E11.9 - Type 2 diabetes mellitus without complications Current visit: Yes Status: Chronic Blood sugars are in general well controlled. (3) Hypertension Qualifiers: Hypertension type: essential hypertension Qualified Code(s): I10 - Essential (primary) hypertension Current visit: Yes Status: Chronic Blood pressures continue to run slightly high. This will need to be monitored as an outpatient as well. (4) Peripheral edema Current visit: Yes Status: Acute (5) Subarachnoid hemorrhage Current visit: Yes Status: Resolved Patient appears to be neurologically stable with regard to her subarachnoid hemorrhage. I will clarify the issue of duration of nimodipine with the neurosurgeon. DVT Prophylaxis: SQ Heparin Resuscitation Status: Full Code - Course Hospital Course: Joaqíun Chou MD: 01/15/18 10:30 Barrier to therapy progress at present is low back pain. We will check low back films. Add heating pad as needed. Blood pressure up and discussed with hospitalist service. 01/18/18 12:02 Continues to complain of posterior neck and low back pain which predated the current bleed. Has peripheral edema. Blood pressures are improved. 01/19/18 10:29 Plans for dismissal today. Follow-up blood pressure with Dr. Fatima. - Interventions to Obtain Goals PT Treatment Plan: Balance/Proprioception, Functional Activities, Gait Training , Patient/Family Education, Therapeutic Exercise OT Treatment Plan: ADL (Basic Care), Balance Training, IADL, Pt./Family Education, Ther. Exercise for ADL
[2018-01-19] MEDS: HYDROCORTISONE 1% CREAM 28.35gm TOP SCH (11:27)
--- NOTE | 2018-01-19 13:50 | Discharge Summary ---
Discharge Information Date of admission: 01/13/18 16:57 Anticipated date of discharge: 01/19/18 Attending Physician: Joaquín Chou MD Primary care physician: Pastor Fatima MD Consults: 01/13/18 21:08 Physician Consult [CONS] Routine Consulting Provider: Kathia Garcia Reason For Exam: medical managment Ordering Provider has Notified [employer]: No - Discharge Diagnosis (1) Traumatic brain injury Status: Resolved (2) DM type 2 (diabetes mellitus, type 2) Status: Chronic (3) Hypertension Status: Chronic (4) Peripheral edema Status: Acute (5) Subarachnoid hemorrhage Status: Resolved 1. Acute subarachnoid hemorrhage secondary to aneurysm rupture, resulting in traumatic brain injury 2. Hypertension 3. Peripheral edema-improved 4. Diabetes mellitus type 2 not on long-term insulin - Laboratory Labs: 01/14/18 04:43 01/19/18 08:12 History of Present Illness HPI: Ms. Dillon experienced an episode of syncope at home in the shower on 2017. She subsequently was brought to the emergency department at [facility] where a CT scan of the head revealed what appeared to be an acute subarachnoid hemorrhage. She was transferred to [facility]. At that location Dr. 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 She subsequently was noted to have significant functional deficits and for this reason referral was made to inpatient rehabilitation at [facility] where she was admitted on January 13, 2018. Hospital Course This is a general summary of the patient's hospital course. For more details refer to the complete medical record. The patient was admitted to acute inpatient rehabilitation for a multidisciplinary approach. This was in view of her diabetes mellitus, recent traumatic brain injury secondary to subarachnoid hemorrhage and hypertension. It was felt that close monitoring of her neurologic status, blood pressure and blood sugars would be important to ensure a safe rehabilitation for her and to allow her to return to her home. From a medical standpoint she remained stable. Her blood pressures were a bit elevated for a time at around 170-180 systolic. She was followed by the hospitalist service. They eventually came down to around 140 systolic. In addition, her blood sugars were monitored with most values being in the mid 100s to high 100s after eating. She had no hypoglycemic episodes. The following gains are to be considered preliminary. The reader is encouraged to refer to actual therapy notes and reports for specific details. She was seen by occupational therapy with the following functional gains identified: Patient was independent for eating upon admission and dismissal. Grooming was initially standby assist and ultimately independent. Bathing ability was initially minimum assistance and ultimately modified independent level. Upper body dressing was initially standby assist and ultimately independent. Lower body dressing was initially minimum assistance and ultimately modified independent. She was able to perform toileting assist, toilet transfer assist and bed/chair/wheelchair transfers with standby assistance. She was also seen by physical therapy. Bed/chair/wheelchair transfers were performed with modified independent level. She was standby assist for car transfers. Ambulation required a front-wheeled walker and therefore modified independent level at over 150 feet. The patient did display some degree of impulsivity and initial lack of safety awareness. However by the time of dismissal this had resolved and she was felt to be safe for transfer to her home. Patient also requested that she be dismissed and she felt as though she was safe for transfer to home. She will be seen in follow-up Dr. Mercer at on February 10 at an appointment previously established. She will otherwise follow-up with Dr. Fatima for primary care. Hospital course: 01/14 check EKG d/t irreg HR on auscultation monitor bp closely; continue dc orders per [facility] which include discontinuation of nimodipine on 01/21/18, at which time aldactazide may be resumed. monitor bgm. She required insulin while hospitalized at [facility] but was dc'd here on oral agents. flat affect; monitor for situational depression labs on admission: wbc normal 7.1, hgb low 9.7, plt 202 (N), K 4.3 (N), BUN 20 ( N), cr 0.7 (N) Heparin for VTE PPX therapy orders and pain control per attending Time spent with patient: greater than 35 minutes Resuscitation Status: Full Code Discharge Plan - Med Rec/Dispo Referrals/Follow Up: Pastor Fatima MD [Family Provider] - (Dr. Jennifer Fatima's office will notify patient of date and time of Hosp. follow- up appt. [address] [place] [address]) Maria Teresa Instructions: Fall Prevention for Older Adults (GEN) Prescriptions: Continue Sennosides/Docusate Sodium [Senokot-S Tablet] 1 tab PO BID GlyBURIDE [Micronase] 1 tab PO BIDWM Methyldopa [Aldomet] 250 mg PO BID Metformin [Glucophage] 500 mg PO BIDWM Acetaminophen [Tylenol] 2 tab PO Q4H PRN PRN Reason: Pain Discontinued Oxycodone *IR* [Roxicodone *Ir*] 1 tab PO Q4H PRN PRN Reason: Pain niMODipine [Nymalize] 2 cap PO Q4H HEPARIN 5,000unit/ml 0.5 ml SQ Q8H Sodium Chloride Conc 8.5 ml PO TIDWM - Disposition 01 Discharged Home, Self-Care - Dismissal Complete Discharge Instructions are:: Complete
--- NOTE | 2018-01-19 13:53 | Letter to Referring Physician ---
Dear Dr. Fatima, This is a brief note to bring you up-to-date on the status of Yarely Dillon and her stay on the acute inpatient rehabilitation unit at [facility]. As you are likely aware, this patient was admitted to [facility] on 12/28/17 for acute subarachnoid hemorrhage due to ruptured aneurysm. Dr. Mercer placed a clip on the anterior communicating artery aneurysm on 12/29/2017 and she tolerated this well. The patient was stabilized while on the acute level and was admitted to inpatient rehabilitation unit at [facility] on January 13, 2018. While on inpatient rehabilitation, this patient was seen by occupational therapy and physical therapy and improved overall in their functional ability. We also monitored and managed the patient's hypertension and diabetes while on Acute Rehab. Please see a copy of the history and physical examination as well as discharge summary enclosed with this letter for further details. Her blood pressures were somewhat variable while on acute rehabilitation. We do recommend following her up in the next 1-2 weeks with regard to her blood pressures in particular. Her blood sugars remained stable during this time. [facility] had recommended she hold her Aldactazide until she was finished with the nimodipine. This was concluded at the time of dismissal so she will need to restart her Aldactazide and have her sodium and potassium monitored. Thank you for allowing us to be involved in this nice patient's care. Please contact me directly should you have any questions regarding their stay on the inpatient rehabilitation unit. Sincerely, Joaquín Chou M.D.
== END 2018-01-19 11:45 | disposition home or self-care (01) | DRG 950 ==
PROVIDERS: ADMIT Internal Medicine; ATTEND Internal Medicine

== ENCOUNTER 2018-03-02 15:28 | Observation (INO) ==
--- NOTE | 2018-03-02 15:45 | Emergency Department Report ---
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 Rivera's office for evaluation for a potential brain aneurysm. She denies any trauma or injury. She denies any pain or discomfort. She noted onset of symptoms 4-6 days ago while at home. Symptoms have been persistent in nature since onset. She notes closure of the eye. She does note that she did have an intracerebral hemorrhage in December 2017 which resulted in her having a craniotomy. She denies any other complaints or associated symptoms at this time. She was at home when her symptoms began. Symptoms have been persistent in nature since onset. She does not note any exacerbating or remitting factors. - Related Data Home Medications Medication Instructions Recorded Confirmed Glyburide/Metformin HCl 0.5 tab PO WS 03/02/18 03/02/18 [Glyburide-Metformin 2.5-500 mg] Glyburide/Metformin HCl 1 tab PO WB 03/02/18 03/02/18 [Glyburide-Metformin 2.5-500 mg] Methyldopa [Aldomet] 250 mg PO PM 03/02/18 03/02/18 Spironolact/Hydrochlorothiazid 1 tab PO QAM 03/02/18 03/02/18 [Aldactazide 25-25 Tablet] Previous Rx's Medication Instructions Recorded predniSONE [Prednisone] 30 mg PO WB #39 tab 03/03/18 Allergies Allergy/AdvReac Type Severity Reaction Status Date / Time banana Allergy Difficulty Verified 03/02/18 15:47 Breathing lebron Allergy Difficulty Verified 03/02/18 15:47 Breathing chocolate flavor Allergy Difficulty Verified 03/02/18 15:47 Breathing codeine Allergy Verified 03/02/18 15:35 Penicillins Allergy Verified 03/02/18 15:35 spinach Allergy Difficulty Verified 03/02/18 15:47 Breathing acetaminophen [From Tylenol] AdvReac Diarrhea Verified 03/02/18 15:47 Review of Systems Constitutional: Denies: fever, chills Eyes: Denies: eye pain, eye discharge ENT: Denies: ear pain, throat pain Cardiovascular: Denies: chest pain, palpitations Respiratory: Denies: cough, dyspnea Gastrointestinal: Denies: abdominal pain, nausea, vomiting, diarrhea Genitourinary: Denies: urgency, dysuria Musculoskeletal: Denies: back pain, arthralgia Integumentary: Denies: erythema, rash Neurological: Denies: headache, numbness, paresthesias Psychiatric: Denies: anxiety, depression Endocrine: Denies: polydipsia, polyuria Hematological/Lymphatic: Denies: easy bruising, lymphadenopathy Allergic/Immunologic: Denies: facial swelling, urticaria PFSH Patient Stated Medical History Hypertension Yes Diabetes Mellitus Type 2 Yes Medical History Updates: Ruptured anterior communicating artery aneurysm 2017 Surgical History: 1. T&A. 2. Craniotomy for aneurysm clipping 12/29/2017 Dr. Schwartz at [facility] Family History Updates: Father at age 55 of a stroke. Mother also of a stroke in her 70s. Her brother has HTN and DM. - Social History Smoking status: Former smoker Substance use type: does not use Alcohol intake: current Alcohol intake frequency: other (beer/mixed drink weekly) Housing: house Household members: spouse Current occupational status: retired Current residence: Apartment/Private Home Physical Exam - Limitations Limitations: no limitations - General General appearance: alert, in no apparent distress - Normal Exams: Head:: Normocephalic without trauma Eyes:: Pupils are PERRLA w/ EOMI (R Eye - Patient refused to perform visual acuity exam. Pupil is round and sluggishly reactive to light. Patient has difficulty adducting the eye and elevating the eye. Normal lids and lashes. No conjunctival injection. No proptosis. No hyphema. No fluorescein dye uptake. Unremarkable slit lamp exam. Intraocular pressure: 18. No Serafina sign. No Globe injury. L eye - WNL.), No scleral icterus, irritation, or foreign bodies noted (Patient would not allow the eye to be open long enough to perform funduscopic exam. Multiple attempts were made.) ENMT:: No facial trauma, nasal exudates, pharyngeal erythema, or exudates are noted Dental: No fractured, loose, or missing teeth noted Neck:: Full range of motion, without adenopathy, JVD, bruits or thyromegaly Chest/Respirations:: Clear all victoria, with good airflow, and symmetry bilaterally Cardiovascular:: Regular rate and rhythm, without murmur or gallop, Pulses 2+ all extremities, capillary refill, <2 seconds all extremities Abdomen:: Bowel sounds positive, soft, non-tender, non-distended, no hepatosplenomegaly, masses or bruits noted Lymphatic:: No lymphadenopathy, or lymphedema noted Musculoskeletal:: No tenderness, or deformity noted, good range of motion, all extremities Integumentary:: No rashes, hives, or bruising noted, hair and nails, without abnormality Neurological:: Patient is alert (Alert and oriented x 3. CN 2-12 intact except for drooping of R eyelid with sparing of brow. Patient also cannot adduct the eye fully or elevate the eye. Normal sensation. Normal motor. Normal coordination. Normal speech. Normal gait. Reflexes 2/4 in all extremities. Absent Babinski bilaterally. No focal deficit. ), and oriented, cranial nerves , motor/sensory/cerebellar, exams w/o gross deficits, to observation Psychiatric:: Patient exhibits, appropriate attention, emotion and affect Course Vital Signs Temperature 97.7 F 03/02/18 15:35 Pulse Rate 77 03/02/18 15:35 Respiratory Rate 19 03/02/18 15:35 Blood Pressure 134/63 03/02/18 15:35 Pulse Oximetry 97 03/02/18 15:35 Temperature 98.2 F 03/03/18 12:00 Pulse Rate 82 03/03/18 15:19 Respiratory Rate 16 03/03/18 12:00 Blood Pressure 138/72 03/03/18 12:00 Pulse Oximetry 99 03/03/18 12:00 Medical Decision Making - [facility] Narrative Medical decision making narrative: Labs / imaging were discussed in detail with the patient and family and questions are answered. Patient is given 500 mL of normal saline intravenously. She is discussed with Dr. Irwin the the neurologist who recommends admission to the hospitalist service and consultation to neurology. The patient was very difficult during her emergency department stay being argumentative and uncooperative during most of her physical examinations. Patient does agree to follow the recommendations of neurology. She declines aspirin therapy at this time. She is admitted to the service of the hospitalist Dr. Holcomb after discussion with him. No further orders from accepting or consulting physicians were in agreement with the current plan of management. She is admitted to the hospital in improved condition. - Differential Diagnosis CN 3 Palsy, CVA, Brain aneurysm, TIA, diabetic complication. - Lab Data Result diagrams: 03/03/18 05:09 03/03/18 05:09 Lab Results 03/02/18 03/02/18 03/02/18 Range/Units 16:10 16:10 16:10 WBC 11.7 H (4.5-11.0) T/MM3 RBC 4.40 (4.00-5.20) M/MM3 Hgb 13.3 (12-16) GM/DL Hct 38.1 (36-46) % MCV 86.6 (80-100) UM3 MCH 30.2 (26-34) UUG MCHC 34.9 (31-37) GM/DL RDW Std Deviation 40.9 (36.9-50.2) FL Plt Count 207 (130-400) T/MM3 MPV 9.3 L (9.4-12.4) UM3 Immature Gran % (Auto) 0.3 (0.0-0.5) % Neut % (Auto) 73.9 H (33-66) % Lymph % (Auto) 20.4 L (23-45) % Cotton % (Auto) 5.0 (0-9.0) % Eos % (Auto) 0.3 (0-4) % Baso % (Auto) 0.1 (0-2) % Neut # (Auto) 8.7 H (1.8-7.7) T/MM3 Lymph # (Auto) 2.4 (1-4.8) T/MM3 Cotton # (Auto) 0.6 (0-0.8) T/MM3 Eos # (Auto) 0.0 (0-0.5) T/MM3 Baso # (Auto) 0.0 (0-0.2) T/MM3 Abs Immat Gran (auto) 0.04 H (0.00-0.03) T/MM3 INR 1.01 (0.92-1.18) APTT 24.6 (24-36) SEC Turbidity < 20 (0-20) Sodium 137 (134-144) MEQ/L Potassium 3.9 (3.6-5) MEQ/L Chloride 98 (98-107) MEQ/L Carbon Dioxide 21 L (22-30) MEQ/L Anion Gap 18 H (5-15) MEQ/L BUN 39.0 H (7-17) MG/DL Creatinine 1.5 H (0.7-1.2) mg/dL GFR Calculation 34 BUN/Creatinine Ratio 26 (6-26) RATIO Glucose 285 H (65-110) MG/DL Calculated Osmolality 283 H (261-280) MOSM/KG Calcium 9.8 (8.4-10.2) MG/DL Total Bilirubin 0.40 (0.20-1.30) MG/DL Icterus Index < 2 (0-7) AST 18 (14-36) U/L ALT 20 (1-35) U/L Alkaline Phosphatase 55 (38-126) U/L Troponin I 0.041 (0-0.12) ng/ml Total Protein 7.0 (6.3-8.2) g/dL Albumin 4.3 (3.5-5.0) g/dL Globulin 2.7 (2.4-3.6) G/DL Albumin/Globulin Ratio 1.6 (1.1-2.2) RATIO Specimen Hemolysis < 15 (0-25) - Radiology Data CXR - no acute processes. CTA head/neck: No acute intracranial vascular abnormality. Left craniotomy changes with aneurysm clip noted. Mild right proximal ICA stenosis. Atretic distal right vertebral artery. Moderate to severe proximal left subclavian artery stenosis. - EKG Data EKG #1 EKG results narrative: Sinus rhythm with frequent PVCs. 95 bpm. No STEMI. 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
--- OUTSIDE RECORDS SUMMARY | 2018-03-02 16:05 | External Medical Summary | Continuity of Care Document ---
:1945 Author Organization [facility] Care Team Providers Name Role Phone [employer] Unavailable Unavailable Encounters Location Location Encounter Encounter Reason Attending ADM DC Status Source Details Type Number For Provider Date Date Visit INPATIENT [id number] BRIDGER 12/29 01/13 Active The [facility] /2017 [facility] Maria De Jesus SPARKS Active The [facility]
--- OUTSIDE RECORDS SUMMARY | 2018-03-02 16:06 | External Medical Summary | Encounter Summary ---
:1945 Author Organization [facility] Address [address] [place] [address] Care Team Providers Name Role Phone Pastor Fatima MD Primary Care Provider Encounter Details Date Type Department Care Team Description 02/10/2018 Documentation [facility] Oumar Mercer MD Physicians - Neurosurgery [address] [place] [address] [facility] [place] [address] OFFICE BLDG [phone] [place] [id number] [phone] Social History Tobacco Use Types Packs/Day Years Used Date Former Smoker Smokeless Tobacco: Never Used Alcohol Use Drinks/Week oz/Week Comments No Sex Assigned at Date Recorded Not on file as of this encounter Functional Status Functional Status Response Date of Assessment Does the patient have a hearing impairment: No 12/30/2017 as of this encounter Progress Notes Ashwin Pelletier RN - 02/10/2018 9:17 AM CDTPatient called to reschedule appointment for today due to doctor unavailable. Patient not wishing to reschedule due to distance from and only followup with her PCP. Advised that we are obligated to follow-up with her. She will discuss with her PCP and call us back.in this encounter Plan of Treatment Not on fileas of this encounter Visit Diagnoses Not on filein this encounter
--- OUTSIDE RECORDS SUMMARY | 2018-03-02 16:06 | External Medical Summary | Clinical Summary ---
:1945 Author Organization [facility] Address [address] [place] [address] Care Team Providers Name Role Phone Pastor Fatima MD Primary Care Provider Source Comments Some departments are not documenting in the electronic medical record. If you do not see the information that you expected, contact Release of Information in the Health Information Management department at [phone] for further assistance in locating additional records.[facility] Allergies Active Allergy Reactions Severity Noted Date Comments Codeine UNKNOWN Low 12/29/2017 Penicillins UNKNOWN Low 12/29/2017 Current Medications Prescription Sig. Disp. Refills Start Date End Date Status methyldopa (ALDOMET) Take 250 mg by Active 250 mg tablet mouth twice daily. acetaminophen Take 2 tablets by 0 01/13/2018 Active (TYLENOL) 325 mg mouth every 4 hours tablet as needed. oxyCODONE Take 1 tablet by 0 01/13/2018 Active (ROXICODONE, OXY-IR) mouth every 4 hours 5 mg tablet as needed glyBURIDE (DIABETA) Take 1 tablet by 90 tablet 3 01/13/2018 Active 2.5 mg tablet mouth twice daily with meals. Take with food. metFORMIN Take 1 tablet by 180 tablet 3 01/13/2018 Active (GLUCOPHAGE) 500 mg mouth twice daily tablet with meals. heparin (porcine) PF Inject 0.5 mL under 01/13/2018 Active 5,000units/0.5mL the skin every 8 injection syringe hours. May discontinue once mobilizing well senna/docusate Take 1 tablet by 0 01/13/2018 Active (SENOKOT-S) 8.6/50 mouth twice daily. mg tablet Take while taking pain medication spironolactone-hydro Take 1 tablet by 90 tablet 3 01/13/2018 Active chlorothiazide mouth every (ALDACTAZIDE) 25-25 morning. D NOT mg tablet restart until after nimotop is stopped; approximately 01/21/18 sodium chloride(#) Take 8.5 mL by 01/13/2018 Active inj for po 4 mEq/mL mouth three times daily with meals. Active Problems Problem Noted Date Diabetes (HCC) 12/29/2017 Hypertension 12/29/2017 Subarachnoid hemorrhage (HCC) 12/29/2017 Encounters Date Type Specialty Care Team Description 02/10/2018 Documentation Neurosurgery Oumar Mercer MD 12/29/2017 - Hospital Encounter Candice, Diabetes (HCC) 01/13/2018 MD Ruslan Perez Paul J, MD 12/29/2017 Procedure Pass 12/29/2017 Anesthesia Event Lul Smith MD 12/29/2017 Procedure Pass 12/29/2017 Surgery Oumar Mercer REPAIR ANEURYSM MD Justino CRANIOTOMY 12/29/2017 Anesthesia Event Radiology Michael Posada SRNA 12/29/2017 Procedure Pass from Last 3 Months Social History Tobacco Use Types Packs/Day Years Used Date Former Smoker Smokeless Tobacco: Never Used Alcohol Use Drinks/Week oz/Week Comments No Sex Assigned at Date Recorded Not on file Last Filed Vital Signs Vital Sign Reading Time Taken Blood Pressure 147/68 01/13/2018 8:03 AM OSCILLOGRAPH TECHNICIAN Pulse 82 01/13/2018 8:03 AM OSCILLOGRAPH TECHNICIAN Temperature 37.1 C (98.8 F) 01/13/2018 8:03 AM OSCILLOGRAPH TECHNICIAN Respiratory Rate - - Oxygen Saturation 99% 01/13/2018 8:03 AM OSCILLOGRAPH TECHNICIAN Inhaled Oxygen Concentration - - Weight 101.8 kg (224 lb 6.9 oz) 01/07/2018 3:00 AM OSCILLOGRAPH TECHNICIAN Height 165.1 cm (5' 5") 12/30/2017 3:00 PM OSCILLOGRAPH TECHNICIAN Body Mass Index 37.35 01/07/2018 3:00 AM OSCILLOGRAPH TECHNICIAN Plan of Treatment Health Maintenance Due Date Last Done Comments PHYSICAL (COMPREHENSIVE) EXAM 1950 PERTUSSIS VACCINE 1954 TETANUS VACCINE 1960 BREAST CANCER SCREENING 1983 COLORECTAL CANCER SCREENING 1993 SHINGLES VACCINE 2003 OSTEOPOROSIS SCREENING 2008 PREVNAR/PNEUMOVAX (#1) 2008 INFLUENZA VACCINE 08/23/2018 Implants Implanted Type Area Privacy Attorney Device Expiration Model / Identifier Date Serial / Lot Device Closure 6fr Starclose Se Vascular Nitinol Clip - Sn/A Right: ARMANDO [id number] / Implanted: Qty: 1 on 12/29/2017 by Ruben Helm MD Femoral LAB:VASC DEV N/A / Artery [id number] Substitute Tissue 3x3in Lyoplant Dura Sodium Hydroxide Onlay - [id number] Left : AESCULAP NEURO 08/22/2022 [id number] / Implanted: Qty: 1 on 12/29/2017 by Oumar Mercer MD Brain DIVISION [id number] / [id number] Clip 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 - [id number] Left: NANCY BARNEY 45.760 / Implanted: Qty: 1 on 12/29/2017 by Oumar Mercer MD Brain 45.760 / 45.760 Mesh Cranial .6mm Small Temporal Titanium Latex Free - Left: [facility] / Implanted: Qty: 1 on 12/29/2017 by Oumar Mercer MD Brain IMPLANTS / Cover [place] L17mm Od3mm - [id number] Left: [facility] / Implanted: Qty: 2 on 12/29/2017 by Oumar Mercer MD Brain IMPLANTS / Screw Bone 4mm 1.5mm Drill-Free Maxdrive Craniomaxillofacial - [id number] Left: [facility] [id number] / Implanted: Qty: 16 on 12/29/2017 by Oumar Mercer MD Brain IMPLANTS [id number] / [id number] Procedures Procedure Name Priority Date/Time Associated Diagnosis Comments EMG-SCAN 01/19/2018 2:09 Results for this PM OSCILLOGRAPH TECHNICIAN procedure are in the results section. CONSULT IV THERAPY Routine 01/03/2018 6:32 TEAM PM OSCILLOGRAPH TECHNICIAN ECG-SCAN 12/29/2017 11:15 Results for this PM OSCILLOGRAPH TECHNICIAN procedure are in the results section. ANESTHESIA ARTERIAL Routine 12/29/2017 1:11 Results for this LINE INSERTION PM OSCILLOGRAPH TECHNICIAN procedure are in the results section. REPAIR ANEURYSM 12/29/2017 11:00 Subarachnoid CRANIOTOMY AM OSCILLOGRAPH TECHNICIAN hemorrhage (HCC) from Last 3 Months Results EMG-SCAN (01/19/2018 2:09 PM) Narrative Ordered by an unspecified provider. POC GLUCOSE (01/13/2018 7:11 AM)Only the most recent of77 resultswithin the time period is included. Component Value Ref Range Glucose, POC 107 (H) 70 - 100 MG/DL Specimen Performing Laboratory MAIN LAB [address] [place] [address] CBC AND DIFF (01/13/2018 4:10 AM)Only the [...] Specimen Performing Laboratory Blood MAIN LAB [address] [place] [address] BASIC METABOLIC PANEL (01/13/2018 4:10 AM)Only the [...] Specimen Performing Laboratory Blood [facility] MAIN [facility] [address] [place] [address] 11054 SODIUM (01/08/2018 3:49 PM) Component Value Ref Range Sodium 134 (L) 137 - 147 MMOL/L Specimen Performing Laboratory Blood [facility] MAIN [facility] [address] [place] [address] 26162 PHOSPHORUS (01/07/2018 3:34 AM)Only the most recent of10 resultswithin the time period is included. Component Value Ref Range Phosphorus 2.8 2.0 - 4.0 MG/DL Specimen Performing Laboratory [facility]IN [facility] [address] [place] [address] 32789 MAGNESIUM (01/07/2018 3:34 AM)Only the most recent of12 resultswithin the time period is included. Component Value Ref Range Magnesium 2.0 1.6 - 2.6 mg/dL Specimen Performing Laboratory Blood [facility]IN [facility] [address] [place] [address] 99699 IONIZED CALCIUM (01/07/2018 3:34 AM)Only the most recent of10 resultswithin the time period is included. Component Value Ref Range Ionized Calcium 1.17 1.0 - 1.3 MMOL/L Specimen Performing Laboratory [facility]IN [facility] [address] [place] [address] US DOPPLER VENOUS BILATERAL (01/05/2018 9:41 AM) [...] Interface, Radiant Results - 01/05/2018 7:22 PM OSCILLOGRAPH TECHNICIAN Doppler lower extremity ultrasound Clinical Indication: Female, [...] treatment decreasing Resolved decreasing/normal Specimen Performing Laboratory [facility] [address] [place] [address] UA REFLEX CULTURE LABEL (12/31/2017 11:45 PM) Component Value Ref Range UA Reflex Culture LAB LABEL Specimen Performing Laboratory Urine [facility] MAIN [facility] [address] [place] [address] URINALYSIS MICROSCOPIC REFLEX TO CULTURE (12/31/2017 11:45 PM) Component Value Ref Range WBCs,UA 2-10 0 - 2 /HPF RBCs,UA 0-2 0 - 3 /HPF Comment,UA Urine submitted for reflex culture if criteria are met:WBC>10, positive nitrite and/or >=1+ leukocyte esterase. If quantity is not sufficient, an addendum will follow. Squamous Epithelial Cells 0-2 0 - 5 Specimen Performing Laboratory Urine MAIN LAB [address] [place] [address]3817 URINALYSIS DIPSTICK REFLEX TO CULTURE (12/31/2017 11:45 PM) Component Value Ref Range Color,UA YELLOW Turbidity,UA CLEAR CLEAR-CLEAR Specific [place]-Urine 1.027 1.003 - 1.035 pH,UA 6.0 5.0 - 8.0 Protein,UA 1+ (A) NEG-NEG Glucose,UA NEG NEG-NEG Ketones,UA 1+ (A) NEG-NEG Bilirubin,UA NEG NEG-NEG Blood,UA NEG NEG-NEG Urobilinogen,UA NORMAL NORM-NORMAL Nitrite,UA NEG NEG-NEG Leukocytes,UA NEG NEG-NEG Urine Ascorbic Acid, UA NEG NEG-NEG Specimen Performing Laboratory Urine MAIN LAB [address] [place] [address] 88189 POTASSIUM (12/30/2017 10:31 AM) Component Value Ref Range Potassium 3.8 3.5 - 5.1 MMOL/L Specimen Performing Laboratory Blood [facility] MAIN [facility] [address] [place] [address] CTA HEAD WO/W CONTR+POST PRO (12/30/2017 4:18 [...] Interface, Radiant Results - 12/30/2017 12:48 PM OSCILLOGRAPH TECHNICIAN EXAM: CTA HEAD HISTORY: Female, 72 years. [...] 0.05 NG/ML Specimen Performing Laboratory MAIN LAB [address] [place] [address]277 ECG-SCAN (12/29/2017 11:15 PM) Narrative Ordered by an unspecified provider. GLUCOSE,BG (12/29/2017 1:50 PM) Component Value Ref Range Glucose 228 (H) 70 - 100 MG/DL Specimen Performing Laboratory Blood MAIN LAB [address] [place] [address] 10808 SODIUM,BG (12/29/2017 1:50 PM) Component Value Ref Range Sodium 136 (L) 137 - 147 MMOL/L Specimen Performing Laboratory Blood MAIN LAB [address] [place] [address] 74782 POTASSIUM, BG (12/29/2017 1:50 PM) Component Value Ref Range Potassium 4.3 3.5 - 5.1 MMOL/L Specimen Performing Laboratory Blood MAIN LAB [address] [place] [address] 91812 LACTIC ACID (BG - RAPID LACTATE) (12/29/2017 1:50 PM) Component Value Ref Range Lactic Acid,BG 1.2 0.5 - 2.0 MMOL/L Specimen Performing Laboratory Blood MAIN LAB [address] [place] [address] 61877 IONIZED CALCIUM,BG (12/29/2017 1:50 PM) Component Value Ref Range Ionized Calcium 1.12 1.0 - 1.3 MMOL/L Specimen Performing Laboratory Blood MAIN LAB [address] [place] [address] 23900 HEMOGLOBIN & HEMATOCRIT, BG (12/29/2017 1:50 PM) Component Value Ref Range Hemoglobin BG 11.0 (L) 12.0 - 15.0 GM/DL Hematocrit BG 33.8 (L) 36 - 45 % Specimen Performing Laboratory Blood MAIN LAB [address] [place] [address] 91104 BLOOD GASES, ARTERIAL (12/29/2017 1:50 PM)Only the most recent of2 resultswithin the time period is included. Component Value Ref Range pH-Arterial 7.38 7.35 - 7.45 pCO2-Arterial 31 (L) 35 - 45 MMHG pO2-Arterial 192 (H) 80 - 100 MMHG Base Deficit-Arterial 5.9 MMOL/L O2 Sat-Arterial 99.6 (H) 95 - 99 % Mpwkzvwyseo-HMQ-Phr 19.6 (L) 21 - 28 MMOL/L Specimen Performing Laboratory Blood, arterial - Blood MAIN LAB [address] [place] [address] 94081 ANESTHESIA ARTERIAL LINE INSERTION (12/29/2017 1:11 PM) [...] Performing Laboratory Blood [facility] MAIN [facility] [address] [place] [address] IR ARTERIOGRAM NEURO (12/29/2017 10:56 AM) Specimen [...] Neurointerventionalist:Ruben Helm MD Contrast - 200 cc [id number] Total mGy - 1821 Anesthesia: General endotracheal [...] establishing arterial access. RCCA Technique A 5 Sami 100 cm Vert catheter was advanced over a 150 cm 0.035 Seltzer wire over the aortic arch and into [...] under fluoroscopic and roadmap guidance over the Seltzer wire and images were obtained in biplane [...] Interface, Radiant Results - 12/29/2017 3:10 PM OSCILLOGRAPH TECHNICIAN Cerebral Angiogram Indication - SAH Procedures Performed [...] Ruben Helm MD Contrast - 200 cc [id number] Total mGy - 1821 Anesthesia: General endotracheal [...] establishing arterial access. RCCA Technique A 5 Sami 100 cm Vert catheter was advanced over a 150 cm 0.035 Seltzer wire over the aortic arch and into [...] under fluoroscopic and roadmap guidance over the Seltzer wire and images were obtained in biplane [...] Screen NEG Electronic Crossmatch YES Unit Number [id number] Blood Component Type RBC,ADSOL,LEUKO REDUCED Unit Division 0 Status OF Unit REL FROM ALLOC Transfusion Status OK TO TRANSFUSE Crossmatch Result COMPATIBLE,ELECTRONIC Unit Number [id number] Blood Component Type RBC,ADSOL,LEUKO REDUCED,2ND CONT. Unit Division 0 Status OF Unit REL FROM ALLOC Transfusion Status OK TO TRANSFUSE Crossmatch Result COMPATIBLE,ELECTRONIC Specimen Performing Laboratory Blood MAIN LAB [address] [place] [address] 86822 PTT (APTT) (12/29/2017 5:44 AM) Component Value Ref Range APTT 24.8 21.0 - 39.0 SEC Specimen Performing Laboratory Blood MAIN LAB [address] [place] [address] 24938 PROTIME INR (PT) (12/29/2017 5:44 AM) Component Value Ref Range INR 1.1 0.8 - 1.2 Specimen Performing Laboratory Blood MAIN LAB [address] [place] [address] 16682 LACTIC ACID(LACTATE) (12/29/2017 5:44 AM) Component Value Ref Range Lactic Acid 1.7 0.5 - 2.0 MMOL/L Specimen Performing Laboratory Blood [facility] [address] [place] [address] 77729 HEMOGLOBIN A1C (12/29/2017 5:44 AM) Component Value Ref Range Hemoglobin A1C 6.7 (H) 4.0 - 6.0 % Comment: The ADA recommends that most patients with type 1 and type 2 diabetes maintain an A1c level <7%. Specimen Performing Laboratory MAIN LAB [address] [place] [address] 87905 LIPID PROFILE (12/29/2017 5:44 AM) Component Value [...] mg/dL. Specimen Performing Laboratory Blood MAIN LAB [address] [place] [address] COMPREHENSIVE METABOLIC PANEL (12/29/2017 5:44 AM) Component [...] Performing Laboratory Blood [facility] MAIN [facility] [address] [place] [address] from Last 3 Months
--- OUTSIDE RECORDS SUMMARY | 2018-03-02 16:08 | External Medical Summary | Encounter Summary ---
:1945 Author Organization [facility] Address [address] [facility] [address] [place] [address] Care Team Providers Name Role Phone Pastor Fatima MD Primary Care Provider Encounter Details Date Type Department Care Team Description 12/29/2017 Procedure Pass CA7 [address] [place] [address] Social History Tobacco Use Types Packs/Day Years Used Date Former Smoker Smokeless Tobacco: Never Used Alcohol Use Drinks/Week oz/Week Comments No Sex Assigned at Date Recorded Not on file as of this encounter Plan of Treatment Not on fileas of this encounter Visit Diagnoses Not on filein this encounter
--- OUTSIDE RECORDS SUMMARY | 2018-03-02 16:08 | External Medical Summary | Encounter Summary ---
:1945 Author Organization [facility] Address [address] [facility] [address] [place] [address] Care Team Providers Name Role Phone Pastor Fatima MD Primary Care Provider Encounter Details Date Type Department Care Team Description 12/29/2017 Procedure Pass CA Operating Room [address] [place] [address] Social History Tobacco Use Types Packs/Day Years Used Date Never Assessed Sex Assigned at Date Recorded Not on file as of this encounter Plan of Treatment Not on fileas of this encounter Visit Diagnoses Not on filein this encounter
--- OUTSIDE RECORDS SUMMARY | 2018-03-02 16:08 | External Medical Summary | Encounter Summary ---
:1945 Author Organization [facility] Address [address] [place] [address] Care Team Providers Name Role Phone Pastor Fatima MD Primary Care Provider Reason for Visit Auth/Cert Status Reason Specialty Diagnoses / Procedures Referred By Contact Referred To Contact Diagnoses Subarachnoid hemorrhage (HCC) Ruptured Aneurysm Subarachnoid hemorrhage (HCC) Encounter Details Date Type Department Care Team Description 12/29/2017 - Hospital Encounter CA7 Ana Harvey MD [address] [place] [address] [phone] Diabetes (HCC) 01/13/2018 [facility] [address] [place] [address] [phone] [place] [address] Social History Tobacco Use Types Packs/Day Years Used Date Former Smoker Smokeless Tobacco: Never Used Alcohol Use Drinks/Week oz/Week Comments No Sex Assigned at Date Recorded Not on file as of this encounter Last Filed Vital Signs Vital Sign Reading Time Taken Blood Pressure 147/68 01/13/2018 8:03 AM AG SERVICE MANAGER Pulse 82 01/13/2018 8:03 AM AG SERVICE MANAGER Temperature 37.1 C (98.8 F) 01/13/2018 8:03 AM AG SERVICE MANAGER Respiratory Rate - - Oxygen Saturation 99% 01/13/2018 8:03 AM AG SERVICE MANAGER Inhaled Oxygen Concentration - - Weight 101.8 kg (224 lb 6.9 oz) 01/07/2018 3:00 AM AG SERVICE MANAGER Height 165.1 cm (5' 5") 12/30/2017 3:00 PM AG SERVICE MANAGER Body Mass Index 37.35 01/07/2018 3:00 AM AG SERVICE MANAGER in this encounter Functional Status Functional Status Response Date of Assessment Does the patient have a hearing impairment: No 12/30/2017 as of this encounter Discharge Summaries Anabel Mitchell APRN - 01/13/2018 10:22 AM CSTFormatting of this note may be different from the original. Physician Discharge Summary Name: Yarely Dillon Date Of : 1945 Age: 72 years Admit date: 12/29/2017 Discharge date: 01/13/2018 Attending Physician: Dr. Mercer Service: Surgery-Neuro Physician Summary completed by: Anabel Mitchell APRN Reason for hospitalization: Subarachnoid hemorrhage Significant PMH: Past Medical History: Diagnosis Date DM (diabetes mellitus) (HCC) HTN (hypertension) Allergies: Codeine and Penicillins Admission Physical Exam notable for: 72 y.o.right handed femalewith PMH of DM, HTN who presentsin transfer from [facility] for management of SAH. The patient reports that she was showering when she bent down to turn off the water and felt pain across her shoulders and at the base of her neck. She then had a syncopal episode and awoke on the floor of the tub after + LOC. She had also had some loose stool as well. She was able to get out of the shower and get across the bedroom beforecalling to her for help. Her called EMS and she was taken to OSH for evaluation. Shewas noted to have SAH on her CT head and was subsequently transferred to [facility] for further management. Admission Lab/Radiology studies notable for: CT head 12/28/17 from outside hospital reviewed demonstrating SAH throughout the basilar cisterns and into the right sylvian fissure. CTA head 12/29/17 revieweddemonstrating an apparent anterior communicating artery aneurysm. Brief Hospital Course: The patient was admitted and the following issues were addressed during thishospitalization: (with pertinent details). 12/29: Transfer from OSH with SAH. Neurologically intact. Craniotomy for aneurysm repair. 12/30-01/06: ICU care. Vasospasm watch. PT/OT/CITY PLANNER. Rehab consulted. 01/07: Progressed to med/surg status. 01/08: Medicine consulted for DM management. 01/11: Discharge planning. CM/SW involved. 01/13: Discharge to OSH rehab. Follow up care arranged. Condition at Discharge: Stable Discharge Diagnoses: Hospital Problems Active Problems Diabetes (HCC) Hypertension Subarachnoid hemorrhage (HCC) Surgical Procedures: Left pterional craniotomy for clipping of AComm aneurysm Significant Diagnostic Studies and Procedures: radiology: CTA head; cerebal angiogram Consults: Internal Medicine and Rehabilitative Medicine Patient Disposition: Outside Rehabilitation Facility Patient instructions/medications: Other Activity Restrictions Activity as tolerated; No driving until cleared by your surgeon at follow up appointment. Avoid pulling, pushing or lifting greater than 10 pounds. May shower, gently wash incision and scalp with baby shampoo, pat dry gently. Do not submerge underbath water, pool water, etc. Do not use any heating elements, or hair products. Wrap glass ear piece with guaze until incision well healed Leave incision open to air; may cover with gauze and tape if needed INSTRUCTIONS, ADDITIONAL Recheck sodium level on January 20. Adjust PO Na solution according to Na level (goal is normal sodium level). OT EVAL & TREAT PT EVAL & TREAT CITY PLANNER CONSULT SPEECH-LANGUAGE EVAL & TX Report These Signs and Symptoms Call if temperature greater than 101, incision red, drainage or odor noted from incision, pain that is uncontrolled with pain medication, numbness or weakness, vision changes, trouble with speech or slurring of speech, or any questions/ concerns. Questions About Your Stay For questions or concerns regarding your hospital stay. Call [phone] Discharging attending physician: OUMAR MERCER [[id number]] Regular Diet You have no dietary restriction. Please continue with a healthy balanced diet. Additional Discharge Instructions Neurosurgery follow up: Your appointment will be located in the Medical Office Building, just left of the hospital's main entrance. If you need to reschedule, please call [phone]. If you have any questions once at home during the work week between the hours of 0800 - 1500, pleasecall Indu at [phone]. Otherwise, please call the main hospital number ([phone]) and ask for the neurosurgery resident investor relations director to be paged. Current Discharge Medication List START taking these medications Details acetaminophen (TYLENOL) 325 mg tablet Take 2 tablets by mouth every 4 hours as needed. Refills: 0 PRESCRIPTION TYPE: No Print glyBURIDE (DIABETA) 2.5 mg tablet Take 1 tablet by mouth twice daily with meals. Take with food. Qty: 90 tablet, Refills: 3 PRESCRIPTION TYPE: No Print heparin (porcine) PF 5,000units/0.5mL injection syringe Inject 0.5 mL under the skin every 8 hours. May discontinue once mobilizing well PRESCRIPTION TYPE: No Print metFORMIN (GLUCOPHAGE) 500 mg tablet Take 1 tablet by mouth twice daily with meals. Qty: 180 tablet, Refills: 3 PRESCRIPTION TYPE: No Print niMODipine (NIMOTOP) 30 mg capsule Take 2 capsules by mouth every 4 hours for 7 days. PRESCRIPTION TYPE: No Print oxyCODONE (ROXICODONE, OXY-IR) 5 mg tablet Take 1 tablet by mouth every 4 hours as needed Refills: 0 PRESCRIPTION TYPE: No Print senna/docusate (SENOKOT-S) 8.6/50 mg tablet Take 1 tablet by mouth twice daily. Take while taking pain medication Refills: 0 PRESCRIPTION TYPE: No Print sodium chloride(#) inj for po 4 mEq/mL Take 8.5 mL by mouth three times daily with meals. PRESCRIPTION TYPE: No Print CONTINUE these medications which have been CHANGED or REFILLED Details spironolactone-hydrochlorothiazide (ALDACTAZIDE) 25-25 mg tablet Take 1 tablet by mouth every morning. D NOT restart until after nimotop is stopped; approximately 01/21/18 Qty: 90 tablet, Refills: 3 PRESCRIPTION TYPE: No Print CONTINUE these medications which have NOT CHANGED Details methyldopa (ALDOMET) 250 mg tablet Take 250 mg by mouth twice daily. PRESCRIPTION TYPE: Historical Med The following medications were removed from your list. This list includes medications discontinued this stay and those removed from your prior med list in our system glyBURIDE-metformin (GLUCOVANCE) 2.5-500 mg tablet Scheduled appointments: Feb 10, 2018 1:15 PM CDT Post - Op with Oumar Mercer MD [facility] - Neurosurgery ([facility]) 2nd Floor [address] [facility] Med Office [facility] [address] Pending items needing follow up: none Signed: Anabel Mitchell APRN 01/13/2018 cc: Primary Care Physician: Pastor Fatima Verified Referring physicians: Pastor Fatima MD Additional provider(s): in this encounter Medications at Time of Discharge [...] by mouth 250 mg tablet twice daily. oxyCODONE (ROXICODONE, Take 1 tablet by mouth [...] after tablet nimotop is stopped; approximately 01/21/18 niMODipine (NIMOTOP) Take 2 capsules by 01/13/2018 01/20/2018 30 mg capsule mouth every 4 hours for 7 days. as of this encounter Progress Notes Rina Crews, ERMELINDA - 01/13/2018 9:57 AM CSTYarely Dillon discharged on 2017. . Discharge instructions reviewed with patient. Valuables returned: . Home medications: . PIVs removed. Afebrile. VSS. All questions answered. Pt leaving hospital via car with nephew. Will be going to rehab facility in [place], [place]. This RN to call report to [...] Continue current care -- Nimotop NA 133 PT/OT/CITY PLANNER Pain controlled Appreciate Medicine recommendations Discharge planning -- rehab facility this AM; CM/SW involved. Prophylaxis: A)GI: PPI B) Lines: None; PIV C) Urinary Catheter: No D) Antibiotic Usage: No E) VTE: Pharmacological prophylaxis; SQ Heparin and Mechanical prophylaxis; Sequential compression device F) Restraints: Patient assessed for need for restraints. Anabel Mitchell, DEBT MANAGEMENT COUNSELOR 6782 Please call [phone] with any questions.Bridgett Mcmahan, PT - 01/12/2018 [...] PROGRESS NOTE Patient Name: Yarely Dillon Room[facility]Bed: [id number] Admitting Diagnosis: Ruptured Aneurysm Subarachnoid hemorrhage [...] obtained with evidence of SAH, transferred to [facility] for management of traumatic vs aneurysmal SAH. 12/29: OR for Left pterional craniotomy for clipping of AComm aneurysm. Precautions: Falls (Scooterss video monitor ) Pain / Complaints: Patient agrees to participate in therapy Pain Location: Back Pain Level Current: 7 (RN notified) Comments: Patient positioned for comfort in recliner uppon therapist arrival and departure with needs met and precautions in place. Patient watching TV show. Sc[employer]erss mobile sales technician notified of patient's return to room. Objective Psychosocial Status: Willing and Cooperative to Participate Persons Present: None Home Living Type of Home: House Home Layout: Able to Live on Main Level w/Bedrm/Bathrm Access Bathroom Shower / Tub: Walk-in Shower Bathroom Toilet: Standard Prior Function Level Of Gates: Independent with ADLs and functional transfers; Independent [...] Patient Will Perform All ADL's: w/ Modified Gates, w/ Good Judgment/ Safety Functional Transfer Goals [...] current care -- Keppra, Nimotop NA 134 PT/OT/CITY PLANNER Pain controlled Appreciate Medicine recommendations Discharge planning -- rehab placement; CM/SW involved. Prophylaxis: A)GI: PPI B) Lines: None; PIV C) Urinary Catheter: No D) Antibiotic Usage: No E) VTE: Pharmacological prophylaxis; SQ Heparin and Mechanical prophylaxis; Sequential compression device F) Restraints: Patient assessed for need for restraints. Anabel Mitchell, DEBT MANAGEMENT COUNSELOR 1816 Please call [phone] with any questions.Kenyatta Mathis RN - 01/12/2018 [...] home diabetes medication for discharge. 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 -Continue methyldopa and nimodipine per primary team #SAH -S/p craniotomy and clipping -Keppra -Management per primary team Patient seen and discussed with Dr. Castro. We will continue to follow peripherally. Liban Acosta MD PGY-1 Internal Medicine Consult pager: [phone] History of Present Illness: Yarely Dillon is a 72 y.o. female. No acute events overnight. Florinefd/leeanna 01/08, PEARLER metformin and glyburide restarted last night. No F/C, N/V. Past Medical History: Diagnosis Date DM (diabetes mellitus) (HCC) HTN (hypertension) Past Surgical History: Procedure Laterality Date INTRACRANIAL ANEURYSM REPAIR Left 12/29/2017 REPAIR ANEURYSM CRANIOTOMY performed by Oumar Mercer MD at [facility] OR/Periop HX TONSILLECTOMY Social History Social History Marital status: Spouse name: N/A Number of children: N/A Years of education: N/A Social History Main Topics Smoking status: Former Smoker Smokeless tobacco: Never Used Alcohol use No Drug use: Unknown Sexual activity: Not on file Other Topics Concern Not on file Social History Narrative Lives with Asaf, no children but 2 nephews in [place]. Perform all ADLs independently History reviewed. No [...] Liban Acosta MD Internal Medicine Consult pager: [phone] Associated attestation - Jason Castro MD - [...] Staff name: Jason Castro MD Date: 01/11/2018 KokiMaryjane, SUSSY - 01/11/2018 12:34 PM CSTFormatting of this [...] start to titrate, will decrease to BID PT/OT/CITY PLANNER-Rehab is the overall recommendation, has very limited hands on support and consistent supervision. Dispo pending Rehab placement. Prophylaxis: A)GI: PPI B) Lines: None; PIV C) Urinary Catheter: No D) Antibiotic Usage: No E) VTE: Pharmacological prophylaxis; SQ Heparin and Mechanical prophylaxis; Sequential compression device F) Restraints: Patient assessed for need for restraints. Maryjane Telles, DEBT MANAGEMENT COUNSELOR 0461 Please call [phone] with any questions.Mariah Hemphill, OT - 01/11/2018 11: 27 AM CSTFormatting of this note may be different from the original. OCCUPATIONAL THERAPY PROGRESS NOTE Patient Name: Yarely Dillon Room/Bed: [place] [address] Admitting Diagnosis: Ruptured Aneurysm Subarachnoid hemorrhage (HCC) [...] obtained with evidence of SAH, transferred to [facility] for management of traumatic vs aneurysmal SAH. [...] Patient Will Perform All ADL's: w/ Modified Gates, w/ Good Judgment/ Safety Functional Transfer Goals Pt Will Perform All Functional Transfers: Modified Independent, w/ Good Judgment /Safety OT Discharge Recommendations OT Discharge Recommendations: Inpatient Setting Equipment Recommendations: Too early to be determined Therapist: JOSH Martinez/April 0271 Date: 01/11/2018Bridgett Mcmahan, PT - 01/11/2018 9:08 AM CSTPHYSICAL THERAPY [...] 01/11/2018 Stefanie Milton - 01/11/2018 8:07 AM AG SERVICE MANAGER CLINICAL NUTRITION Clinical Nutrition Follow-Up Summary Nutrition Assessment of Patient: Malnutrition Assessment: Does not meet criteria Current Oral Intake: Adequate Estimated Calorie Needs: 1635 (25 kcal/kg desired wt 65.4kg) Estimated Protein Needs: 78-85 (1.2-1.3 gm/kg desired wt 65.4kg) Oral Diet Order: Diabetic 7684-2479 Kcal/day (60 g Carb/meal, 30 g Carb/HS [...] Status: Met Rajani Milton RD, LD Pager: [phone] Inna Perkins MD - 01/10/2018 7:31 PM [...] (Dr. Mercer) Continue current care -- Keppra, Shirap SBP < 160 mmHg Na 135 -Na solution, PT/OT/CITY PLANNER-making steady progress, will need consistent supervision at home. Continue to monitor for home vs rehab. PT TODAY Prophylaxis: A)GI: PPI B) Lines: None; PIV C) Urinary Catheter: No D) Antibiotic Usage: No E) VTE: Pharmacological prophylaxis; SQ Heparin and Mechanical prophylaxis; Sequential compression device F) Restraints: Patient assessed for need for restraints. Denzel Mi MD 0773 Please call [phone] with any questions.Denzel Mi MD - 01/09/2018 [...] < 160 mmHg Na 134 -Na solution, PT/OT/CITY PLANNER-making steady progress, will need consistent supervision at home. Continue to monitor for home vs rehab. IRF vs home Prophylaxis: A)GI: PPI B) Lines: None; PIV C) Urinary Catheter: No D) Antibiotic Usage: No E) VTE: Pharmacological prophylaxis; SQ Heparin and Mechanical prophylaxis; Sequential compression device F) Restraints: Patient assessed for need for restraints. Denzel Mi MD 7500 Please call [phone] with any questions.Geoffrey Pantoja MD - 01/08/2018 [...] continue insulin for now and will restart [employer] fire prevention [employer] metformin and glyburide if florinef remains discontinued #. 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 - continue methyldopa and nimodipine per [...] Therapist: Bridgett Mcmahan, PT Date: 01/08/2018 Mariah Hemphill OT - 01/08/2018 1:15 PM CSTOCCUPATIONAL THERAPY NO TREATMENT NOTE The patient was not seen due to: Patient not available. Patient ambulating in dai with nursing staff, already complete ADLs with nursing staff today. Per nursing aid, patient participate in bathing self. Will continue to follow and provide OT intervention as indicated. Therapist: Mariah Hemphill OTR/April 0271 Date: 01/08/2018Maryjane Telles APRN - 01/08/2018 [...] evening. 500ml IVF NS bolus this AM PT/OT/CITY PLANNER-making steady progress, will need consistent supervision at home. Continue to monitor for home vs rehab. Floor status. Discharge first of next week. Prophylaxis: A)GI: PPI B) Lines: None; PIV C) Urinary Catheter: No D) Antibiotic Usage: No E) VTE: Pharmacological prophylaxis; SQ Heparin and Mechanical prophylaxis; Sequential compression device F) Restraints: Patient assessed for need for restraints. Maryjane Telles, DEBT MANAGEMENT COUNSELOR 2409 Please call [phone] with any questions.Sindy Baldwin RN - 01/07/2018 11: 32 PM CSTPt not able to get comfortable at this time. Complains of 6 out of 10 back pain. Pt gotten up to thechair. Refusing any pain medication at this time. Will continue to monitor and offer routinely.Marion Kramer, RD - 2017 4:41 PM AG SERVICE MANAGER CLINICAL NUTRITION Clinical Nutrition Follow-Up Summary Nutrition Assessment of Patient: Malnutrition Assessment: Does not meet criteria Current Oral Intake: Adequate Estimated Calorie Needs: 1635 (25 kcal/kg desired wt 65.4kg) Estimated Protein Needs: 78-85 (1.2-1.3 gm/kg desired wt 65.4kg) Oral Diet Order: Diabetic 5348-6400 Kcal/day (60 g Carb/meal, 30 g Carb/HS [...] Continue treatment 1-3x/week Therapist: Sylvia Antony M.A. CF-CITY PLANNER Pager: [phone] Weekend Acute Pager: [phone] Date: 01/07/2018 Liliana Nobles, PT - 01/07/2018 [...] Na solution 1:1 NS replacement Daily TCDs PT/OT/CITY PLANNER Discharge planning -- Floor today; rehab consult pending Prophylaxis: A)GI: PPI B) Lines: None; PIV C) Urinary Catheter: No D) Antibiotic Usage: No E) VTE: Pharmacological prophylaxis; SQ Heparin and Mechanical prophylaxis; Sequential compression device F) Restraints: Patient assessed for need for restraints. Tobias Chapman MD 2130 Please call [phone] with any questions.Nereida Garner, SUSSY - 2017 6:23 AM CSTFormatting of this [...] obtained with evidence of SAH, transferred to [facility] for management. AComm aneurysm clipped in OR on 12/29. Hospital and ICU course: 12/29: Transfer from [place], [place] with SAH. Neurologically intact. S/p craniotomy [...] TCDs daily - melatonin 3mg qHS - PT/OT/CITY PLANNER for cognitive eval - Neuro-ICU monitoring, neurochecks q 2 hrs Sedation, pain - No PEARLER 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 - PRN oxycodone, tylenol available - Monitor for delirium- neuro checks to Q2H and scheduled melatonin qHS Cardiac Hx HTN - Holding PEARLER spironolactone/HCTZ 25-25mg QD - Continue PEARLER Methyldopa 250 mg BID - Prn labetalol, [...] DM, hyperglycemia - A1C 6.7% - Holding PEARLER metformin-glyburide 2.5-500 1 tab BID - Blood [...] the octopuses off the floor" on the [employer]. OBJECTIVE Vital Signs: Last Filed Vital Signs: 24 Hour Range BP: 105/56 (01/07 06) Temp: 37.1 C (98.7 F) (01/07 0400) [...] hours) Intake/Output Summary (Last 24 hours) at 01/07/18622 Last data filed at 01/07/18 0500 Gross [...] procedures reviewed. Nereida Garner APRN Date: 01/07/[phone] Jermaine Chua MD - 01/06/2018 10:35 PM CSTFormatting of this note may be different from the original. Neuro Critical Care Progress Note Yarely Oropezaer Admission Date: 12/29/2017 LOS: 8 days Full [...] obtained with evidence of SAH, transferred to [facility] for management. AComm aneurysm clipped in OR on 12/29. Hospital and ICU course: 12/29: Transfer from [place], [place] with SAH. Neurologically intact. S/p craniotomy [...] daily - Started melatonin 3mg qHS - PT/OT/CITY PLANNER for cognitive eval - Neuro-ICU monitoring, neurochecks q 2 hrs Sedation, pain - No PEARLER 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 - PRN oxycodone, tylenol available - Monitor for delirium- neuro checks to Q2H and scheduled melatonin qHS Cardiac Hx HTN - Holding PEARLER spironolactone/HCTZ 25-25mg QD - Continue PEARLER Methyldopa 250 mg BID - Prn labetalol, [...] DM, hyperglycemia - A1C 6.7% - Holding PEARLER metformin-glyburide 2.5-500 1 tab BID - Blood [...] need for restraints. Disposition/Family:NEICU monitoring Primary service: [facility] Consults:Neurosurgery SUBJECTIVE Yarely Dillon is a 72 [...] (225 lb 1.4 oz), SpO2 100 %. Karl coma score: E: 4 - [...] 0314) POC Glucose (Download): (!) 157 (01/06/18 7001) Lab Review: Pertinent labs reviewed Radiology and [...] consulted teams Jermaine Chua MD Date: 01/06/[phone] Liliana Nobles, PT - 01/06/2018 10:29 AM [...] Na solution 1:1 NS replacement Daily TCDs PT/OT/CITY PLANNER Discharge planning -- anticipate floor status tomorrow; rehab consult pending Prophylaxis: A)GI: PPI B) Lines: None; PIV C) Urinary Catheter: No D) Antibiotic Usage: No E) VTE: Pharmacological prophylaxis; SQ Heparin and Mechanical prophylaxis; Sequential compression device F) Restraints: Patient assessed for need for restraints. Anabel Mitchell, DEBT MANAGEMENT COUNSELOR 8606 Please call [phone] with any questions.Nereida Garner, SUSSY - 2017 [...] obtained with evidence of SAH, transferred to [facility] for management. AComm aneurysm clipped in OR on 12/29. Hospital and ICU course: 12/29: Transfer from [place], [place] with SAH. Neurologically intact. S/p craniotomy [...] daily - Started melatonin 3mg qHS - PT/OT/CITY PLANNER for cognitive eval - Neuro-ICU monitoring, neurochecks q 2 hrs Sedation, pain - No PEARLER 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 - PRN oxycodone, tylenol available - Monitor for delirium- neuro checks to Q2H and scheduled melatonin qHS Cardiac Hx HTN - Holding PEARLER spironolactone/HCTZ 25-25mg QD - Continue PEARLER Methyldopa 250 mg BID - Prn labetalol, [...] DM, hyperglycemia - A1C 6.7% - Holding PEARLER metformin-glyburide 2.5-500 1 tab BID - Blood [...] need for restraints. Disposition/Family:NEICU monitoring Primary service: [facility] Consults:Neurosurgery SUBJECTIVE Yarely Dillon is a 72 [...] (225 lb 1.4 oz), SpO2 99 %. Karl coma score: E: 4 - [...] consulted teams Nereida Garner, SUSSY Date: 01/06/[phone] Liliana Nobles, PT - 01/05/2018 1:23 PM [id number] THERAPY PROGRESS NOTE MOBILITY: Mobility Progressive Mobility [...] Therapist: Liliana Nobles, PT Date: 01/05/2018 Jermaine Cuha MD - 01/05/2018 12:40 PM CSTFormatting of [...] obtained with evidence of SAH, transferred to [facility] for management. AComm aneurysm clipped in OR on 12/29. Hospital and ICU course: 12/29: Transfer from [place], [place] with SAH. Neurologically intact. S/p craniotomy [...] sutures - Started melatonin 3mg qHS - PT/OT/CITY PLANNER for cognitive eval - Neuro-ICU monitoring, neurochecks q 2 hrs Sedation, pain - No PEARLER 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 - PRN oxycodone, tylenol available - Monitor for delirium- neuro checks to Q2H and scheduled melatonin qHS - Risperdal 0.5 mg once overnight Cardiac Hx HTN - Holding PEARLER spironolactone/HCTZ 25-25mg QD - Continue PEARLER Methyldopa 250 mg BID - Prn labetalol, [...] DM, hyperglycemia - A1C 6.7% - Holding PEARLER metformin-glyburide 2.5-500 1 tab BID - Blood [...] need for restraints. Disposition/Family:NEICU monitoring Primary service: [facility] Consults:Neurosurgery SUBJECTIVE Yarely Dillon is a 72 [...] (226 lb 10.1 oz), SpO2 98 %. [place] coma score: E: 4 - opens eyes [...] 0416) POC Glucose (Download): (!) 220 (01/05/18 1138) Lab Review: Pertinent labs reviewed Radiology and Other Diagnostic Procedures Review: Pertinent radiologic and diagnostic procedures reviewed. Jermaine Chua MD Date: 01/05/[phone] Denzel Mi MD - 01/05/2018 6:38 AM [...] for restraints. Denzel Mi MD Please call [phone] with any questions.Dasilva Jazzy Qureshi, DEBT MANAGEMENT COUNSELOR - 01/05/2018 6:06 AM CSTFormatting of this [...] obtained with evidence of SAH, transferred to [facility] for management. AComm aneurysm clipped in OR on 12/29. Hospital and ICU course: 12/29: Transfer from [place], [place] with SAH. Neurologically intact. S/p craniotomy [...] sutures - Started melatonin 3mg qHS - PT/OT/CITY PLANNER for cognitive eval - Neuro-ICU monitoring, neurochecks q 2 hrs Sedation, pain - No PEARLER 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 - PRN oxycodone, tylenol available - Monitor for delirium- neuro checks to Q2H and scheduled melatonin qHS - Risperdal 0.5 mg once overnight Cardiac Hx HTN - Holding PEARLER spironolactone/HCTZ 25-25mg QD - Continue PEARLER Methyldopa 250 mg BID - Prn labetalol, [...] DM, hyperglycemia - A1C 6.7% - Holding PEARLER metformin-glyburide 2.5-500 1 tab BID - Blood [...] Restraints: Patient assessed for need for restraints. Disposition/Family:NEU monitoring Primary service: NCC Consults:Neurosurgery SUBJECTIVE Yarely [...] of care with consulted teams Jazzy Dasilva, DEBT MANAGEMENT COUNSELOR Date: 01/05/[phone] Anna Hernandez, PT - 01/04/2018 3:23 PM CSTPHYSICAL THERAPY NOTE Patient declined to participate despite encouragement and education about the role and benefits of physical therapy due to fatigue. Physical therapy will continue to follow and provide intervention asindicated. Therapist: Anna Hernandez, PT Date: 01/04/2018 Stefanie Milton - 01/04/2018 2:28 PM AG SERVICE MANAGER CLINICAL NUTRITION Clinical Nutrition Assessment Summary Nutrition Assessment of Patient: BMI Categories Adult: Obesity Class II: 35-39.9 (36.61) Malnutrition Assessment: Does not meet criteria Current Oral Intake: Inadequate Estimated Calorie Needs: 1635 (25 kcal/kg desired wt 65.4kg) Estimated Protein Needs: 78-85 (1.2-1.3 gm/kg desired wt 65.4kg) Oral Diet Order: Diabetic 3794-4422 Kcal/day (60 g Carb/meal, 30 g Carb/HS [...] SAH 12/28. Spoke with pt this afternoon rosahe was able to provide subjective information. Pt reports that PEARLER she was eating well and her weight [...] Throughout Stay Rajani Milton RD, LD Pager: [phone] Sylvia Antony - 01/04/2018 2:22 PM CSTSPEECH-LANGUAGE [...] Continue treatment 1-3x/week Therapist: Sylvia Antony M.A. CF-CITY PLANNER Pager: [phone] Weekend Acute Pager: [phone] Date: 01/04/2018 Mariah Hemphill, OT - 01/04/2018 1:10 PM CSTOCCUPATIONAL THERAPY NO TREATMENT NOTE Attempted to see patient however patient declined. Provided support and encouragement however patient continued to state "No" with her eyes closed and pulled her blankets up over her. Will follow andprovide OT intervention as indicated. Therapist: Mariah Hemphill, OTR/L 0271 Date: 01/04/2018Stephanie Chau M.Div, [facility] - 01/04/2018 11:16 AM CSTReason for Visit: Rounding Noemi/Faith: The patient is Adventist and does not belong to a specific hindu. Worries/Concerns/Struggles: Right now, she really wants to go home. Method(s) of Coping: She said she likes to "keep living and doing the things she does." Support System: Her , brother, and two nephews are her strongest support. Interventions/Plan: The hog room supervisor assessed the patient. Jermaine Chua MD - [...] territories. She is on Keppra, with stopdate / She continues on nimodipine She is on [...] [facility] Developed pain in back of head , twisted to turn water off and lost consciousness. Woke up less than 10min after event, got herself up and got her . CT head obtained with evidence of SAH, transferred to [facility] for management. AComm aneurysm clipped in OR on 12/29. Hospital and ICU course: 12/29: Transfer from [place], [place] with SAH. Neurologically intact. S/p craniotomy [...] sutures - Started melatonin 3mg qHS - PT/OT/CITY PLANNER for cognitive eval - Neuro-ICU monitoring, neurochecks q 2 hrs Sedation, pain - No PEARLER 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 - PRN oxycodone, tylenol available - Monitor for delirium- will decrease neuro checks to Q2H and scheduled melatonin qHS Cardiac Hx HTN - Holding PEARLER spironolactone/HCTZ 25-25mg QD - Continue PEARLER Methyldopa 250 mg BID - Prn labetalol, [...] Hx DM - A1C 6.7% - Holding PEARLER metformin-glyburide 2.5-500 1 tab BID - Blood [...] for restraints. Disposition/Family: NEICU monitoring Primary service: [facility] Consults: Neurosurgery SUBJECTIVE Yarely Dillon is a [...] (220 lb 0.3 oz), SpO2 98 %. [place] coma score: E: 3 - Opens eyes [...] 0345) POC Glucose (Download): (!) 153 (01/04/18 0675) Lab Review: Pertinent labs reviewed Radiology and Other Diagnostic Procedures Review: Pertinent radiologic and diagnostic procedures reviewed. Jermaine Chua MD Date: 01/04/[phone] Tobias Chapman MD - 01/04/2018 6:32 AM [...] #6 Left ACOMM aneurysm clipping (Dr. Mercer) Keppra, Nimotop SBP < 180 TCD 01/03 1.1, 1.6 [...] for restraints. Tobias Chapman MD Please call [phone] with any questions. Jazzy Dasilva APRN - [...] obtained with evidence of SAH, transferred to [facility] for management. AComm aneurysm clipped in OR on 12/29. Hospital and ICU course: 12/29: Transfer from [place], [place] with SAH. Neurologically intact. S/p craniotomy [...] sutures - Started melatonin 3mg qHS - PT/OT/CITY PLANNER for cognitive eval - Neuro-ICU monitoring, neurochecks q 2 hrs Sedation, pain - No PEARLER 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 - PRN oxycodone, tylenol available - Monitor for delirium- will decrease neuro checks to Q2H and scheduled melatonin qHS Cardiac Hx HTN - Holding PEARLER spironolactone/HCTZ 25-25mg QD - Continue PEARLER Methyldopa 250 mg BID - Prn labetalol, [...] Hx DM - A1C 6.7% - Holding PEARLER metformin-glyburide 2.5-500 1 tab BID - Blood [...] Signs: 24 Hour Range BP: 149/41 (01/04 500) Temp: 36.8 C (98.2 F) (01/04 0400) [...] (220 lb 0.3 oz), SpO2 95 %. [place] coma score: E: 3 - Opens eyes [...] of care with consulted teams Jazzy Dasilva, DEBT MANAGEMENT COUNSELOR Date: 01/04/[phone] Rory Edge RN - 01/03/2018 6:05 PM [...] #5 Left ACOMM aneurysm clipping (Dr. Mercer) Kerayra, Amarilysotop SBP < 180 TCD 01/02 1.1, 1.6 [...] for restraints. Tiffanie Louie MD Please call [phone] with any questions. Risa Jonas MD - [...] obtained with evidence of SAH, transferred to [facility] for management of traumatic vs aneurysmal SAH. Hospital and ICU course: 2/6: Transfer from [place], [place] with SAH. Neurologically intact. S/p craniotomy [...] sutures - Started melatonin 3mg qHS - PT/OT/CITY PLANNER for cognitive eval - Neuro-ICU monitoring, neurochecks q 2 hrs, parameters for Prevention of secondary brain injury(avoid hypotension, hypoxia, fever, hyperglycemia, significant anemia, diagnose and treatment of seizures,electrolyte abnormalities ) Sedation, pain - No PEARLER 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 - PRN oxycodone, tylenol available - Monitor for delirium- will decrease neuro checks to Q2H (okay with NSG) and schedule melatonin qHS Cardiac Hx HTN - Holding PEARLER spironolactone/HCTZ 25-25mg QD - Continue PEARLER Methyldopa 250 mg BID - Prn labetalol, [...] Hx DM - A1C 6.7% - Holding PEARLER metformin-glyburide 2.5-500 1 tab BID - Blood [...] discussed with Dr. Candice Jonas MD Pager [phone] SUBJECTIVE Yarely Dillon is a 72 y.o. [...] bisacodyl QDAY PRN, calcium gluconate IVPB PRN (Galley Cook from Rx) AND Ionized Calcium PRN AND Notify Physician Ongoing, hydrALAZINE Q6H PRN, labetalol (NORMODYNE; TRANDATE) injection Q15 MIN PRN, magnesium sulfate PRN AND Magnesium PRN AND Notify Physician Ongoing, ondansetron (ZOFRAN) IV Q6H PRN, oxyCODONE Q4H PRN, potassium chloride SR PRN OR potassium chloride PRN, sodium phosphate IVPB PRN (Galley Cook from Rx) AND Phosphorus PRN AND* * Notify Physician Ongoing Review of Systems: See subjective OBJECTIVE Vital Signs: Last Filed Vital Signs: Last 24 Hours BP: 157/106 (01/03 0400) Temp: 37.2 C (99 F) (01/03 0000) Pulse: 76 (01/03 0400) Respirations: 12 PER MINUTE (01/03 0400) SpO2: 99 % (01/03 400) O2 Delivery: [...] obtained with evidence of SAH, transferred to [facility] for management of traumatic vs aneurysmal SAH. Hospital and ICU course: 12/29: Transfer from [place], [place] with SAH. Neurologically intact. S/p craniotomy [...] for post-op ppx - TCDs daily - PT/OT/CITY PLANNER for cognitive eval - Requiring mittens, restraint, CO for impulsivity due to pulling at surgical sutures - Neuro-ICU monitoring, neurochecks q 1 hrs, parameters for Prevention of secondary brain injury(avoid hypotension, hypoxia, fever, hyperglycemia, significant anemia, diagnose and treatment of seizures,electrolyte abnormalities ) Sedation, pain - No PEARLER 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 - PRN oxycodone, tylenol available - Monitor for delirium Cardiac Hx HTN - Holding PEARLER spironolactone/HCTZ 25-25mg QD - Continue PEARLER Methyldopa 250 mg BID - Prn labetalol, [...] n/a over 24 hrs - Removed velázquez 12/30 - Pt voiding on own- increased frequency (likely 2/2 encephalopathy and impulsivity) with PVR <20cc Endocrine: Hx DM - A1C 6.7% - Holding PEARLER metformin-glyburide 2.5-500 1 tab BID - Blood [...] bisacodyl QDAY PRN, calcium gluconate IVPB PRN (Galley Cook from Rx) AND Ionized Calcium PRN AND Notify Physician Ongoing, hydrALAZINE Q6H PRN, labetalol (NORMODYNE; TRANDATE) injection Q15 MIN PRN, magnesium sulfate PRN AND Magnesium PRN AND Notify Physician Ongoing, ondansetron (ZOFRAN) IV Q6H PRN, oxyCODONE Q4H PRN, potassium chloride SR PRN OR potassium chloride PRN, sodium phosphate IVPB PRN (Galley Cook from Rx) AND Phosphorus PRN AND* * [...] #4 Left ACOMM aneurysm clipping (Dr. Mercer) Keppra, Nimotop SBP < 180 TCD 01/02 pending [...] for restraints. Tiffanie Louie MD Please call [phone] with any questions. Brittney Cartwright, ERMELINDA - [...] Continue treatment 1-3x/week Therapist: Sylvia Antony M.A. CF-CITY PLANNER Pager: [phone] Weekend Acute Pager: [phone] Date: 01/01/2018 Mariah Hemphill, OT - 01/01/2018 10:18 AM CSTFormatting of this note may be different from the original. OCCUPATIONAL THERAPY PROGRESS NOTE Patient Name: Yarely Dillon Room/Bed: [place] [address] Admitting Diagnosis: Ruptured Aneurysm Subarachnoid hemorrhage (HCC) [...] obtained with evidence of SAH, transferred to [facility] for management of traumatic vs aneurysmal SAH. /: OR for Left pterional craniotomy for clipping [...] Patient Will Perform All ADL's: w/ Modified Gates, w/ Good Judgment/ Safety Functional Transfer Goals Pt Will Perform All Functional Transfers: Modified Independent, w/ Good Judgment /Safety OT Discharge Recommendations OT Discharge Recommendations: Inpatient Setting, Vs, Home with family assist ( dependent on patient hospital course and progress) Equipment Recommendations: Too early to be determined Therapist: JOSH Martinez/April 0271 Date: 01/01/2018Liliana Nobles, PT - 01/01/2018 [...] assessed for need for restraints. Ronda Kulkarni, SUSSY Please call [phone] with any questions. Risa Jonas MD - [...] obtained with evidence of SAH, transferred to [facility] for management of traumatic vs aneurysmal SAH. Hospital and ICU course: 12/29: Transfer from [place], [place] with SAH. Neurologically intact. S/p craniotomy [...] for post-op ppx - TCDs daily - PT/OT/CITY PLANNER for cognitive eval - Neuro-ICU monitoring, neurochecks q 1 hrs, parameters for Prevention of secondary brain injury(avoid hypotension, hypoxia, fever, hyperglycemia, significant anemia, diagnose and treatment of seizures,electrolyte abnormalities ) Sedation, pain - No PEARLER 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 - PRN Fentanyl, oxycodone, tylenol available - Monitor for delirium Cardiac Hx HTN - Holding PEARLER spironolactone/HCTZ 25-25mg QD - Continue PEARLER Methyldopa 250 mg BID - Prn labetalol, [...] Hx DM - A1C 6.7% - Holding PEARLER metformin-glyburide 2.5-500 1 tab BID - Blood [...] and discussed with Dr. Candice Jonas Pager [phone] SUBJECTIVE Yarely Dillon is a 72 y.o. [...] bisacodyl QDAY PRN, calcium gluconate IVPB PRN (Galley Cook from Rx) AND Ionized Calcium PRN AND Notify Physician Ongoing, hydrALAZINE Q6H PRN, labetalol (NORMODYNE; TRANDATE) injection Q15 MIN PRN, magnesium sulfate PRN AND Magnesium PRN AND Notify Physician Ongoing, ondansetron (ZOFRAN) IV Q6H PRN, oxyCODONE Q4H PRN, potassium chloride SR PRN OR potassium chloride PRN, sodium phosphate IVPB PRN (Galley Cook from Rx) AND Phosphorus PRN AND* * [...] Range Color,UA YELLOW Turbidity,UA CLEAR CLEAR-CLEAR Specific Bloomer-Urine 1.027 1.003 - 1.035 pH,UA 6.0 5.0 [...] be fully alert Therapist: Yenny Ellis M.S., CCC-L/CITY PLANNER Pager:[phone] Office:[phone] Date: 12/31/2017 Liliana Nobles, PT - 12/31/2017 [...] Nimotop Can relax SBP < 170 TCD 2/ - right 1.2 CTA without residual acomm, small < 5mm right pcomm noted again No Patient Care Coordination Note on file. Prophylaxis: A)GI: PPI B) Lines: g. C) Urinary Catheter: No D) Antibiotic Usage: No E) VTE: Pharmacological prophylaxis; SQ Heparin and Mechanical prophylaxis; Sequential compression device F) Restraints: Patient assessed for need for restraints. Tobias Chapman MD [id number] Please call [phone] with any questions. Risa Jonas MD - [...] obtained with evidence of SAH, transferred to [facility] for management of traumatic vs aneurysmal SAH. Hospital and ICU course: 12/29: Transfer from [place], [place] with SAH. Neurologically intact. S/p craniotomy [...] for post-op ppx - TCDs daily - PT/OT/CITY PLANNER for cognitive eval - Neuro-ICU monitoring, neurochecks q 1 hrs, parameters for Prevention of secondary brain injury(avoid hypotension, hypoxia, fever, hyperglycemia, significant anemia, diagnose and treatment of seizures,electrolyte abnormalities ) Sedation, pain - No PEARLER 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 - PRN Fentanyl, oxycodone, tylenol available - Monitor for delirium Cardiac Hx HTN - Holding PEARLER spironolactone/HCTZ 25-25mg QD - Continue PEARLER Methyldopa 250 mg BID - Prn labetalol, [...] Hx DM - A1C 6.7% - Holding PEARLER metformin-glyburide 2.5-500 1 tab BID - Blood [...] and discussed with Dr. Candice Jonas Pager [phone] SUBJECTIVE Yarely Dillon is a 72 y.o. [...] bisacodyl QDAY PRN, calcium gluconate IVPB PRN (Galley Cook from Rx) AND Ionized Calcium PRN AND Notify Physician Ongoing, fentaNYL citrate PF Q1H PRN, hydrALAZINE Q6H PRN, labetalol (NORMODYNE; TRANDATE) injection Q15 MIN PRN , magnesium sulfate PRN AND Magnesium PRN AND Notify Physician Ongoing, ondansetron (ZOFRAN) IV Q6H PRN, oxyCODONE Q4H PRN, potassium chloride SR PRN OR potassium chloride PRN, sodium phosphate IVPB PRN (Galley Cook from Rx) AND* * Phosphorus PRN AND [...] 12/31/2017 1:15 AM CSTSpoke with NEICU team investor relations director regarding pt urinating frequently throughout night. Pt velázquez removed at 1100 yesterday and pt has not had any post void residuals since removal. Pt is consistently voidingevery hour and between [id number] pt voided 3 separate times. Post void residual after 2nd void within one hour=11. Pt without symptoms of urgency or pain while voiding. Pt also without fever or suprapubic pain. Per NEICU no new orders at this time, but will consider ordering a UA if pt has a fever or develops other symptoms of a UTI. Will continue to monitor. FauquierCalebGenaroDeidra florez - 12/30/2017 1:45 PM CSTSPEECH-LANGUAGE PATHOLOGY CLINICAL [...] obtained with evidence of SAH, transferred to [facility] for management of traumatic vs aneurysmalSAH. Pt [...] cues to maintain attention. Therapist:Deidra Roberts MA, L/CCC-CITY PLANNER [id number] Date:12/30/2017 Chantal Matute RN - 12/30/2017 1:07 PM CSTNoted patient to be clearing throat after sipping water with 1200 medications. Notified Neuro ICU and asked for speech swallow eval, order entered and CITY PLANNER at bedside.Mariah Hemphill, JOSSELIN - 12/30/2017 10:58 AM CSTFormatting of this note may be different from the original. OCCUPATIONAL THERAPY ASSESSMENT NOTE Patient Name: Yarely Dillon Room/Bed: [place] [address] Admitting Diagnosis: Ruptured Aneurysm Subarachnoid hemorrhage (HCC) [...] obtained with evidence of SAH, transferred to [facility] for management of traumatic vs aneurysmal SAH. [...] Bathroom Toilet: Standard Prior Function Level Of Gates: Independent with ADLs and functional transfers; Independent [...] Patient Will Perform All ADL's: w/ Modified Gates, w/ Good Judgment/ Safety Functional Transfer Goals [...] for need for restraints. Tobias Chapman MD 4790 Please call [phone] with any questions. Risa Jonas MD - [...] obtained with evidence of SAH, transferred to [facility] for management of traumatic vs aneurysmal SAH. Hospital and ICU course: 12/29: Transfer from [place], [place] with SAH. Neurologically intact. S/p craniotomy [...] Goal : 135-145 - TCDs daily - PT/OT/CITY PLANNER for cognitive eval - Neuro-ICU monitoring, neurochecks q 1 hrs, parameters for Prevention of secondary brain injury(avoid hypotension, hypoxia, fever, hyperglycemia, significant anemia, diagnose and treatment of seizures,electrolyte abnormalities ) Sedation, pain - No PEARLER 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 - PRN Fentanyl, oxycodone, tylenol available - Pt was disoriented overnight 12/29, required soft restraints briefly Cardiac Hx HTN - PEARLER spironolactone/HCTZ 25-25mg QD - Restart PEARLER Methyldopa 250 mg BID - Prn labetalol, [...] Hx DM - A1C 6.7% - Holding PEARLER metformin-glyburide 2.5-500 1 tab BID - Blood glucose goal 100-180mg/dl - Insulin gtt intra-op and overnight (23 units in 12 hours) - D/c insulin drip, will start [facility] FEN: - Diabetic diet - Finish [...] and discussed with Dr. Candice Jonas Pager [phone] SUBJECTIVE Yarely Dillon is a 72 y.o. [...] acetaminophen Q4H PRN, calcium gluconate IVPB PRN (Galley Cook from Rx) AND Ionized Calcium PRN AND* * Notify Physician Ongoing, fentaNYL citrate PF Q1H PRN, hydrALAZINE Q6H PRN, labetalol (NORMODYNE; TRANDATE) injection Q15 MIN PRN, magnesium sulfate PRN AND Magnesium PRN AND Notify Physician Ongoing, ondansetron (ZOFRAN) IV Q6H PRN, oxyCODONE Q4H PRN, potassium chloride SR PRN OR potassium chloride PRN, sodium phosphate IVPB PRN (Galley Cook from Rx) AND Phosphorus PRN AND* * Notify Physician Ongoing Review of Systems: See subjective OBJECTIVE Vital Signs: Last Filed Vital Signs: Last 24 Hours BP: 152/32 (12/30 0500) ABP: 99/50 (12/30 0100) Temp: 37 C (98.6 F) (12/30 0400) Pulse: 97 (12/30 0500) Respirations: 20 PER MINUTE (12/30 499) SpO2: 95 % (12/30 0500) O2 Delivery: None (Room Air) (12/30 599) [...] Screen NEG Electronic Crossmatch YES Unit Number [id number] Blood Component Type RBC,ADSOL,LEUKO REDUCED Unit Division 0 Status OF Unit REL FROM ALLOC Transfusion Status OK TO TRANSFUSE Crossmatch Result COMPATIBLE,ELECTRONIC Unit Number [id number] Blood Component Type RBC,ADSOL,LEUKO REDUCED,2ND CONT. Unit [...] Sat-Arterial 99.3 (H) 95 - 99 % Uisclwuugfm-ZTK-Qzv 20.5 (L) 21 - 28 MMOL/L BLOOD [...] Sat-Arterial 99.6 (H) 95 - 99 % Rskiznfgmbc-MNF-Bev 19.6 (L) 21 - 28 MMOL/L IONIZED [...] name: Ana Harvey MD Date: 12/30/2017 Dejah Portillo RN - 12/30/2017 3:[address]STDr. Green with ICU notified that pt has been going in and out of [facility]. No new orders at this time. [...] at shift change, will pass along to poker supervisor to continueto reassess patient for swallow as [...] size and response, motor strength and sensation, Karl Coma Scale) with each set of VS. [...] Date: 12/29/2017 Jackson AC=Airway clearance AM=Aerosolized medication BA=Hammond aerosol DB&C=Deep breathe & cough FEV1=Forced expiratory volume in first second) IC=Inspiratory capacity LE=Lung expansion MDI=Metered dose inhaler Neb=Nebulizer O2=Oxygen Oxim=Oximetry PEFR=Peak expiratory flow rate AUDIT TECH=Rapid Response Team Dejah Portillo RN - 12/29/2017 [...] in this encounter H&P Notes Yenny Narvaez, MSN,DEBT MANAGEMENT COUNSELOR - 12/29/2017 8:28 AM CSTFormatting of this [...] acetaminophen Q4H PRN, calcium gluconate IVPB PRN (Galley Cook from Rx) AND Ionized Calcium PRN AND* * Notify Physician Ongoing, fentaNYL citrate PF Q1H PRN, hydrALAZINE Q6H PRN, labetalol (NORMODYNE; TRANDATE) injection Q15 MIN PRN, magnesium sulfate PRN AND Magnesium PRN AND Notify Physician Ongoing, ondansetron (ZOFRAN) IV Q6H PRN, oxyCODONE Q4H PRN, potassium chloride SR PRN OR potassium chloride PRN, sodium phosphate IVPB PRN (Galley Cook from Rx) AND Phosphorus PRN AND* * [...] previous H&P performed on 12/29/17. Yenny Narvaez, MSN,DEBT MANAGEMENT COUNSELOR Pager [phone] Nata Thayer DO - 12/29/2017 3:13 AM CSTFormatting of [...] obtained with evidence of SAH, transferred to [facility] for management of traumatic vs aneurysmal SAH. Patient Active Problem List Diagnosis Diabetes (HCC) Hypertension Subarachnoid hemorrhage (HCC) Parkinson's disease (HCC) Hospital and ICU course: 01/01: Transfer from [place], [place] with SAH. Neurologically intact. Neuro: Subarachnoid [...] electrolyte abnormalities) Sedation, pain: No - No PEARLER 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 Fentanyl, oxycodone, tylenol Assess for delirium daily Cardiac: Hx HTN - PEARLER spironolactone/HCTZ 25-25mg QD - PEARLER Methyldopa 1 tab BID - Prn labetalol, [...] over 24 hrs Endocrine: Hx DM - PEARLER metformin-glyburide 2.5-500 1 tab BID - A1C [...] for need for restraints. Disposition/Family: Admit to [facility] Primary service: NCC Consults: Neurosurgery [...] head obtained with evidence of SAH,transferred to [facility] for management of traumatic vs aneurysmal SAH. Past Medical History: Diagnosis Date DM (diabetes mellitus) (HCC) HTN (hypertension) Past Surgical History: Procedure Laterality Date HX TONSILLECTOMY Family history reviewed; non-contributory Social History: Lives with Asaf, no children but 2 nephews in [place]. Perform all ADLs independently Code Status: Full [...] acetaminophen Q4H PRN, calcium gluconate IVPB PRN (Galley Cook from Rx) AND Ionized Calcium PRN AND* * Notify Physician Ongoing, fentaNYL citrate PF Q1H PRN, hydrALAZINE Q6H PRN, labetalol (NORMODYNE; TRANDATE) injection Q15 MIN PRN, magnesium sulfate PRN AND Magnesium PRN AND Notify Physician Ongoing, ondansetron (ZOFRAN) IV Q6H PRN, oxyCODONE Q4H PRN, potassium chloride SR PRN OR potassium chloride PRN, sodium phosphate IVPB PRN (Galley Cook from Rx) AND Phosphorus PRN AND* * [...] present - Gag reflex: present EOM: intact [place] coma score: E: 4 M: 6 V: [...] Diagnostic Procedures Review: CTA pending Nata Thayer, Date: 12/29/2017 Associated attestation - Ana Harvey [...] continue insulin for now and will restart [employer] metformin and glyburide when able to wean off corticosteroids. #. 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 - continue methyldopa and nimodipine per [...] : 1945 Primary Insurance: MEDICARE Secondary Insurance: [facility] Tertiary Insurance: Financial Class: Medicare Date of Admission: 12/29/2017 Referring Physician: Oumar Mercer MD Reason for Consult: evaluate for Post-Acute Rehab/Placement Precautions: Fall, Weight bearing Precautions: Progressive mobility Active Problems Subarachnoid Hemorrhage Acomm aneurysm s/p clipping Pcomm aneurysm Impaired ADLs Gait abnormality Assessment & Plan Yarely Dillon is a 72 y.o. female admitted to [facility] on 12/29/2017 with the following issues: [...] 3 therapeutic disciplines, including PT, OT, and CITY PLANNER. This will need to be determined prior to considering admission to acute inpatient rehabilitation. Rehab: Patient with deficits in bed mobility, transfers, gait, ambulation, self- cares and ADLs. Has been working with OT and PT and has continued goals with both disciplines. Differences between acute and subacute/SNF and qualifications for each one were explained to patient. Recommendations: Cognition: CITY PLANNER following cognitive deficits and recommending consistent supervision [...] discharge. Ruben Hernández MD Rehab Consult Pager: [phone] History of Present Illness CC: L sided weakness Hospital Course: Yarely Dillon is a 72 y.o. female w/ PMHx of DM, HTN who was transferred to [facility] from [facility] 12/29 after fall w/ subsequent SAH and found to have Acomm aneurysm s/p left craniotomy and clipping by Dr. Mercer. Also has Pcomm aneurysm. Hospital course has been complicated by AMS and agitation requiring restraints and CO. She is getting near daily TCDs monitoring for vasospasm. PT/OT/CITY PLANNER consulted for therapies and rehab has been [...] Asaf, no children but 2 nephews in [place]. Perform all ADLs independently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 Component Value Ref Range Glucose, POC 174 (H) 70 - 100 MG/DL Specimen Performing Laboratory [facility] [address] [place] [address] 63281 POC GLUCOSE (01/12/2018 6:39 AM) Component Value Ref Range Glucose, POC 115 (H) 70 - 100 MG/DL Specimen Performing Laboratory [facility] [address] [place] [address] 14969 CBC AND DIFF (01/12/2018 4:09 AM) Component [...] K/UL Specimen Performing Laboratory Blood MAIN LAB [address] [place] [address] 25638 BASIC METABOLIC PANEL (01/12/2018 4:09 AM) Component [...] questions. Specimen Performing Laboratory Blood MAIN LAB [address] [place] [address] 75654 POC GLUCOSE (01/12/2018 2:24 AM) Component Value Ref Range Glucose, POC 99 70 - 100 MG/DL Specimen Performing Laboratory MAIN LAB [address] [place] [address] POC GLUCOSE (01/11/2018 8:41 PM) Component Value Ref Range Glucose, POC 138 (H) 70 - 100 MG/DL Specimen Performing Laboratory MAIN LAB [address] [place] [address] 64209 POC GLUCOSE (01/11/2018 5:37 PM) Component Value Ref Range Glucose, POC 90 70 - 100 MG/DL Specimen Performing Laboratory MAIN LAB [address] [place] [address] 96371 POC GLUCOSE (01/11/2018 5:15 PM) Component Value Ref Range Glucose, POC 81 70 - 100 MG/DL Specimen Performing Laboratory MAIN LAB [address] [place] [address] 85782 POC GLUCOSE (01/11/2018 11:16 AM) Component Value Ref Range Glucose, POC 110 (H) 70 - 100 MG/DL Specimen Performing Laboratory MAIN LAB [address] [place] [address] 31429 POC GLUCOSE (01/11/2018 8:24 AM) Component Value Ref Range Glucose, POC 183 (H) 70 - 100 MG/DL Specimen Performing Laboratory MAIN LAB [address] [place] [address] 98697 CBC AND DIFF (01/11/2018 4:02 AM) Component [...] K/UL Specimen Performing Laboratory Blood MAIN LAB [address] [place] [address] 46944 BASIC METABOLIC PANEL (01/11/2018 4:02 AM) Component [...] Pharmacist for questions. Specimen Performing Laboratory Blood [facility] [address] [place] [address] 65084 POC GLUCOSE (01/11/2018 2:20 AM) Component Value Ref Range Glucose, POC 114 (H) 70 - 100 MG/DL Specimen Performing Laboratory [facility] [address] [place] [address] 73667 POC GLUCOSE (01/10/2018 9:05 PM) Component Value Ref Range Glucose, POC 191 (H) 70 - 100 MG/DL Specimen Performing Laboratory [facility] [address] [place] [address] 44802 POC GLUCOSE (01/10/2018 4:40 PM) Component Value Ref Range Glucose, POC 212 (H) 70 - 100 MG/DL Specimen Performing Laboratory [facility] [address] [place] [address] 76342 POC GLUCOSE (01/10/2018 7:53 AM) Component Value Ref Range Glucose, POC 157 (H) 70 - 100 MG/DL Specimen Performing Laboratory [facility] [address] [place] [address] 86121 CBC AND DIFF (01/10/2018 4:51 AM) Component [...] K/UL Specimen Performing Laboratory Blood MAIN LAB [address] [place] [address] 02506 BASIC METABOLIC PANEL (01/10/2018 4:51 AM) Component [...] questions. Specimen Performing Laboratory Blood MAIN LAB [address] [place] [address] 80610 POC GLUCOSE (01/09/2018 8:44 PM) Component Value Ref Range Glucose, POC 271 (H) 70 - 100 MG/DL Specimen Performing Laboratory MAIN LAB [address] [place] [address] POC GLUCOSE (01/09/2018 6:04 PM) Component Value Ref Range Glucose, POC 182 (H) 70 - 100 MG/DL Specimen Performing Laboratory MAIN LAB [address] [place] [address] 44609 POC GLUCOSE (01/09/2018 11:05 AM) Component Value Ref Range Glucose, POC 220 (H) 70 - 100 MG/DL Specimen Performing Laboratory MAIN LAB [address] [place] [address] POC GLUCOSE (01/09/2018 6:28 AM) Component Value Ref Range Glucose, POC 194 (H) 70 - 100 MG/DL Specimen Performing Laboratory MAIN LAB [address] [place] [address] CBC AND DIFF (01/09/2018 6:10 AM) Component [...] K/UL Specimen Performing Laboratory Blood MAIN LAB [address] [place] [address] 60790 BASIC METABOLIC PANEL (01/09/2018 6:10 AM) Component [...] Pharmacist for questions. Specimen Performing Laboratory Blood [facility] [address] [place] [address] 95380 POC GLUCOSE (01/08/2018 10:09 PM) Component Value Ref Range Glucose, POC 186 (H) 70 - 100 MG/DL Specimen Performing Laboratory [facility] [address] [place] [address] 49116 POC GLUCOSE (01/08/2018 5:25 PM) Component Value Ref Range Glucose, POC 158 (H) 70 - 100 MG/DL Specimen Performing Laboratory [facility] [address] [place] [address] 57588 SODIUM (01/08/2018 3:49 PM) Component Value Ref Range Sodium 134 (L) 137 - 147 MMOL/L Specimen Performing Laboratory Blood [facility] [address] [place] [address] 24679 POC GLUCOSE (01/08/2018 11:42 AM) Component Value Ref Range Glucose, POC 231 (H) 70 - 100 MG/DL Specimen Performing Laboratory [facility] [address] [place] [address] 80193 POC GLUCOSE (01/08/2018 8:28 AM) Component Value Ref Range Glucose, POC 138 (H) 70 - 100 MG/DL Specimen Performing Laboratory [facility] [address] [place] [address] 69250 CBC AND DIFF (01/08/2018 6:08 AM) Component [...] K/UL Specimen Performing Laboratory Blood MAIN LAB [address] [place] [address] 16163 BASIC METABOLIC PANEL (01/08/2018 6:08 AM) Component [...] Pharmacist for questions. Specimen Performing Laboratory Blood [facility] [address] [place] [address] 14946 POC GLUCOSE (01/08/2018 5:59 AM) Component Value Ref Range Glucose, POC 137 (H) 70 - 100 MG/DL Specimen Performing Laboratory [facility] [address] [place] [address] 85377 POC GLUCOSE (01/07/2018 9:37 PM) Component Value Ref Range Glucose, POC 167 (H) 70 - 100 MG/DL Specimen Performing Laboratory MAIN LAB [address] [place] [address] 00929 POC GLUCOSE (01/07/2018 5:54 PM) Component Value Ref Range Glucose, POC 201 (H) 70 - 100 MG/DL Specimen Performing Laboratory MAIN LAB [address] [place] [address] 50931 POC GLUCOSE (01/07/2018 11:37 AM) Component Value Ref Range Glucose, POC 218 (H) 70 - 100 MG/DL Specimen Performing Laboratory [facility] [address] [place] [address] 10188 POC GLUCOSE (01/07/2018 8:07 AM) Component Value Ref Range Glucose, POC 200 (H) 70 - 100 MG/DL Specimen Performing Laboratory [facility] [address] [place] [address] 79439 CBC AND DIFF (01/07/2018 3:34 AM) Component [...] - 0.20 K/UL Specimen Performing Laboratory Blood [facility] [address] [place] [address] 49831 IONIZED CALCIUM (01/07/2018 3:34 AM) Component Value Ref Range Ionized Calcium 1.17 1.0 - 1.3 MMOL/L Specimen Performing Laboratory Blood [facility] [address] [place] [address] 93348 PHOSPHORUS (01/07/2018 3:34 AM) Component Value Ref Range Phosphorus 2.8 2.0 - 4.0 MG/DL Specimen Performing Laboratory Blood [facility] [address] [place] [address] 27205 MAGNESIUM (01/07/2018 3:34 AM) Component Value Ref Range Magnesium 2.0 1.6 - 2.6 mg/dL Specimen Performing Laboratory Blood MAIN LAB [address] [place] [address] 65083 BASIC METABOLIC PANEL (01/07/2018 3:34 AM) Component [...] questions. Specimen Performing Laboratory Blood MAIN LAB [address] [place] [address] 49910 POC GLUCOSE (01/06/2018 10:04 PM) Component Value Ref Range Glucose, POC 157 (H) 70 - 100 MG/DL Specimen Performing Laboratory MAIN LAB [address] [place] [address] 16432 POC GLUCOSE (01/06/2018 4:26 PM) Component Value Ref Range Glucose, POC 189 (H) 70 - 100 MG/DL Specimen Performing Laboratory MAIN LAB [address] [place] [address] 78290 MAGNESIUM (01/06/2018 1:39 PM) Component Value Ref Range Magnesium 2.1 1.6 - 2.6 mg/dL Specimen Performing Laboratory Blood MAIN LAB [address] [place] [address] 77523 POC GLUCOSE (01/06/2018 11:11 AM) Component Value Ref Range Glucose, POC 207 (H) 70 - 100 MG/DL Specimen Performing Laboratory MAIN LAB [address] [place] [address] 74031 POC GLUCOSE (01/06/2018 7:35 AM) Component Value Ref Range Glucose, POC 151 (H) 70 - 100 MG/DL Specimen Performing Laboratory MAIN LAB [address] [place] [address] 33051 CBC AND DIFF (01/06/2018 3:14 AM) Component [...] K/UL Specimen Performing Laboratory Blood MAIN LAB [address] [place] [address] 87095 IONIZED CALCIUM (01/06/2018 3:14 AM) Component Value Ref Range Ionized Calcium 1.21 1.0 - 1.3 MMOL/L Specimen Performing Laboratory Blood MAIN LAB [address] [place] [address] 24478 PHOSPHORUS (01/06/2018 3:14 AM) Component Value Ref Range Phosphorus 3.0 2.0 - 4.0 MG/DL Specimen Performing Laboratory Blood MAIN LAB [address] [place] [address] 46729 MAGNESIUM (01/06/2018 3:14 AM) Component Value Ref Range Magnesium 1.9 1.6 - 2.6 mg/dL Specimen Performing Laboratory Blood MAIN LAB [address] [place] [address] 02199 BASIC METABOLIC PANEL (01/06/2018 3:14 AM) Component [...] questions. Specimen Performing Laboratory Blood MAIN LAB [address] [place] [address] 14812 POC GLUCOSE (01/05/2018 9:58 PM) Component Value Ref Range Glucose, POC 155 (H) 70 - 100 MG/DL Specimen Performing Laboratory MAIN LAB [address] [place] [address] 73279 POC GLUCOSE (01/05/2018 5:47 PM) Component Value Ref Range Glucose, POC 204 (H) 70 - 100 MG/DL Specimen Performing Laboratory MAIN LAB [address] [place] [address] 89396 POC GLUCOSE (01/05/2018 11:35 AM) Component Value Ref Range Glucose, POC 220 (H) 70 - 100 MG/DL Specimen Performing Laboratory MAIN LAB [address] [place] [address] 11450 US DOPPLER VENOUS BILATERAL (01/05/2018 9:41 AM) [...] Interface, Radiant Results - 01/05/2018 7:22 PM AG SERVICE MANAGER Doppler lower extremity ultrasound Clinical Indication: Female, [...] MG/DL Specimen Performing Laboratory MAIN LAB [address] [place] [address] BETA HYDROXYBUTYRATE (KETONES) (01/05/2018 4:16 AM) Component Value Ref Range Beta Hydroxybutyrate 0.1 <0.3 MMOL/L Comment: Beta hydroxybutyrate (BOHB) is the most abundant ketone (78%), followed by acetoacetate (20%) and acetone (2%).Measurement BOHB is recommended to assess ketones in DKA. Expected BOHB Results for DKA: Initial presentation high/increasing During treatment decreasing Resolved decreasing/normal Specimen Performing Laboratory MAIN LAB [address] [place] [address] CBC AND DIFF (01/05/2018 4:16 AM) Component [...] K/UL Specimen Performing Laboratory Blood MAIN LAB [address] [place] [address] 39724 IONIZED CALCIUM (01/05/2018 4:16 AM) Component Value Ref Range Ionized Calcium 1.11 1.0 - 1.3 MMOL/L Specimen Performing Laboratory Blood MAIN LAB [address] [place] [address] 03563 PHOSPHORUS (01/05/2018 4:16 AM) Component Value Ref Range Phosphorus 3.4 2.0 - 4.0 MG/DL Specimen Performing Laboratory Blood MAIN LAB [address] [place] [address] 79205 MAGNESIUM (01/05/2018 4:16 AM) Component Value Ref Range Magnesium 2.0 1.6 - 2.6 mg/dL Specimen Performing Laboratory Blood MAIN LAB [address] [place] [address] 42692 BASIC METABOLIC PANEL (01/05/2018 4:16 AM) Component [...] Pharmacist for questions. Specimen Performing Laboratory Blood [facility] [address] [place] [address] 01666 POC GLUCOSE (01/04/2018 8:14 PM) Component Value Ref Range Glucose, POC 195 (H) 70 - 100 MG/DL Specimen Performing Laboratory [facility] [address] [place] [address] 93437 POC GLUCOSE (01/04/2018 4:22 PM) Component Value Ref Range Glucose, POC 222 (H) 70 - 100 MG/DL Specimen Performing Laboratory [facility] [address] [place] [address] 08849 POC GLUCOSE (01/04/2018 12:08 PM) Component Value Ref Range Glucose, POC 244 (H) 70 - 100 MG/DL Specimen Performing Laboratory [facility] [address] [place] [address] 75048 POC GLUCOSE (01/04/2018 6:46 AM) Component Value Ref Range Glucose, POC 153 (H) 70 - 100 MG/DL Specimen Performing Laboratory [facility] [address] [place] [address] 51051 CBC AND DIFF (01/04/2018 3:45 AM) Component [...] K/UL Specimen Performing Laboratory Blood MAIN LAB [address] [place] [address] 03929 IONIZED CALCIUM (01/04/2018 3:45 AM) Component Value Ref Range Ionized Calcium 1.12 1.0 - 1.3 MMOL/L Specimen Performing Laboratory Blood MAIN LAB [address] [place] [address] 83857 PHOSPHORUS (01/04/2018 3:45 AM) Component Value Ref Range Phosphorus 3.1 2.0 - 4.0 MG/DL Specimen Performing Laboratory Blood MAIN LAB [address] [place] [address] 05974 MAGNESIUM (01/04/2018 3:45 AM) Component Value Ref Range Magnesium 1.8 1.6 - 2.6 mg/dL Specimen Performing Laboratory Blood MAIN LAB [address] [place] [address] 72988 BASIC METABOLIC PANEL (01/04/2018 3:45 AM) Component [...] Specimen Performing Laboratory Blood MAIN LAB [address] [place] [address] POC GLUCOSE (01/03/2018 8:42 PM) Component Value Ref Range Glucose, POC 206 (H) 70 - 100 MG/DL Specimen Performing Laboratory MAIN LAB [address] [place] [address] 65880 POC GLUCOSE (01/03/2018 4:35 PM) Component Value Ref Range Glucose, POC 174 (H) 70 - 100 MG/DL Specimen Performing Laboratory MAIN LAB [address] [place] [address] 48025 POC GLUCOSE (01/03/2018 11:56 AM) Component Value Ref Range Glucose, POC 184 (H) 70 - 100 MG/DL Specimen Performing Laboratory MAIN LAB [address] [place] [address] 73363 CBC AND DIFF (01/03/2018 9:22 AM) Component [...] K/UL Specimen Performing Laboratory Blood MAIN LAB [address] [place] [address] 80810 POC GLUCOSE (01/03/2018 8:31 AM) Component Value Ref Range Glucose, POC 142 (H) 70 - 100 MG/DL Specimen Performing Laboratory MAIN LAB [address] [place] [address] 25439 POC GLUCOSE (01/03/2018 6:30 AM) Component Value Ref Range Glucose, POC 173 (H) 70 - 100 MG/DL Specimen Performing Laboratory MAIN LAB [address] [place] [address] 60837 IONIZED CALCIUM (01/03/2018 3:40 AM) Component Value Ref Range Ionized Calcium 1.14 1.0 - 1.3 MMOL/L Specimen Performing Laboratory Blood MAIN LAB [address] [place] [address] 50226 PHOSPHORUS (01/03/2018 3:40 AM) Component Value Ref Range Phosphorus 3.1 2.0 - 4.0 MG/DL Specimen Performing Laboratory Blood MAIN LAB [address] [place] [address] 27085 MAGNESIUM (01/03/2018 3:40 AM) Component Value Ref Range Magnesium 2.0 1.6 - 2.6 mg/dL Specimen Performing Laboratory Blood MAIN LAB [address] [place] [address] 15073 BASIC METABOLIC PANEL (01/03/2018 3:40 AM) Component [...] questions. Specimen Performing Laboratory Blood MAIN LAB [address] [place] [address] 23084 POC GLUCOSE (01/02/2018 8:43 PM) Component Value Ref Range Glucose, POC 218 (H) 70 - 100 MG/DL Specimen Performing Laboratory MAIN LAB [address] [place] [address] 27961 POC GLUCOSE (01/02/2018 5:22 PM) Component Value Ref Range Glucose, POC 199 (H) 70 - 100 MG/DL Specimen Performing Laboratory MAIN LAB [address] [place] [address] 58630 POC GLUCOSE (01/02/2018 11:10 AM) Component Value Ref Range Glucose, POC 203 (H) 70 - 100 MG/DL Specimen Performing Laboratory MAIN LAB [address] [place] [address] 21128 POC GLUCOSE (01/02/2018 6:57 AM) Component Value Ref Range Glucose, POC 136 (H) 70 - 100 MG/DL Specimen Performing Laboratory MAIN LAB [address] [place] [address] 60936 IONIZED CALCIUM (01/02/2018 3:20 AM) Component Value Ref Range Ionized Calcium 1.18 1.0 - 1.3 MMOL/L Specimen Performing Laboratory Blood [facility] [address] [place] [address] 24652 PHOSPHORUS (01/02/2018 3:20 AM) Component Value Ref Range Phosphorus 3.6 2.0 - 4.0 MG/DL Specimen Performing Laboratory Blood [facility] [address] [place] [address] 26289 MAGNESIUM (01/02/2018 3:20 AM) Component Value Ref Range Magnesium 2.1 1.6 - 2.6 mg/dL Specimen Performing Laboratory Blood [facility] [address] [place] [address] 71404 BASIC METABOLIC PANEL (01/02/2018 3:20 AM) Component [...] Pharmacist for questions. Specimen Performing Laboratory Blood [facility] [address] [place] [address] 55082 CBC AND DIFF (01/02/2018 3:20 AM) Component [...] - 0.20 K/UL Specimen Performing Laboratory Blood [facility] [address] [place] [address] 40478 POC GLUCOSE (01/01/2018 8:07 PM) Component Value Ref Range Glucose, POC 126 (H) 70 - 100 MG/DL Specimen Performing Laboratory [facility] [address] [place] [address] 90242 POC GLUCOSE (01/01/2018 4:19 PM) Component Value Ref Range Glucose, POC 265 (H) 70 - 100 MG/DL Specimen Performing Laboratory [facility] [address] [place] [address] 28868 POC GLUCOSE (01/01/2018 11:34 AM) Component Value Ref Range Glucose, POC 296 (H) 70 - 100 MG/DL Specimen Performing Laboratory [facility] [address] [place] [address] 90214 POC GLUCOSE (01/01/2018 6:17 AM) Component Value Ref Range Glucose, POC 243 (H) 70 - 100 MG/DL Specimen Performing Laboratory [facility] [address] [place] [address] 27822 IONIZED CALCIUM (01/01/2018 5:28 AM) Component Value Ref Range Ionized Calcium 1.23 1.0 - 1.3 MMOL/L Specimen Performing Laboratory Blood MAIN LAB [address] [place] [address] PHOSPHORUS (01/01/2018 5:28 AM) Component Value Ref Range Phosphorus 3.4 2.0 - 4.0 MG/DL Specimen Performing Laboratory Blood MAIN LAB [address] [place] [address] 41178 MAGNESIUM (01/01/2018 5:28 AM) Component Value Ref Range Magnesium 2.1 1.6 - 2.6 mg/dL Specimen Performing Laboratory Blood MAIN LAB [address] [place] [address] BASIC METABOLIC PANEL (01/01/2018 5:28 AM) Component [...] Specimen Performing Laboratory Blood MAIN LAB [address] [place] [address] CBC AND DIFF (01/01/2018 5:28 AM) Component [...] K/UL Specimen Performing Laboratory Blood MAIN LAB [address] [place] [address] 69391 UA REFLEX CULTURE LABEL (12/31/2017 11:45 PM) Component Value Ref Range UA Reflex Culture LAB LABEL Specimen Performing Laboratory Urine MAIN LAB [address] [place] [address] 06608 URINALYSIS MICROSCOPIC REFLEX TO CULTURE (12/31/2017 11:45 PM) Component Value Ref Range WBCs,UA 2-10 0 - 2 /HPF RBCs,UA 0-2 0 - 3 /HPF Comment,UA Urine submitted for reflex culture if criteria are met:WBC>10, positive nitrite and/or >=1+ leukocyte esterase. If quantity is not sufficient, an addendum will follow. Squamous Epithelial Cells 0-2 0 - 5 Specimen Performing Laboratory Urine MAIN LAB [address] [place] [address] 41720 URINALYSIS DIPSTICK REFLEX TO CULTURE (12/31/2017 11:45 PM) Component Value Ref Range Color,UA YELLOW Turbidity,UA CLEAR CLEAR-CLEAR Specific Bloomer-Urine 1.027 1.003 - 1.035 pH,UA 6.0 5.0 - 8.0 Protein,UA 1+ (A) NEG-NEG Glucose,UA NEG NEG-NEG Ketones,UA 1+ (A) NEG-NEG Bilirubin,UA NEG NEG-NEG Blood,UA NEG NEG-NEG Urobilinogen,UA NORMAL NORM-NORMAL Nitrite,UA NEG NEG-NEG Leukocytes,UA NEG NEG-NEG Urine Ascorbic Acid, UA NEG NEG-NEG Specimen Performing Laboratory Urine MAIN LAB [address] [place] [address] 46985 POC GLUCOSE (12/31/2017 10:03 PM) Component Value Ref Range Glucose, POC 229 (H) 70 - 100 MG/DL Specimen Performing Laboratory [facility] [address] [place] [address] 25832 POC GLUCOSE (12/31/2017 4:42 PM) Component Value Ref Range Glucose, POC 208 (H) 70 - 100 MG/DL Specimen Performing Laboratory [facility] [address] [place] [address] 26625 POC GLUCOSE (12/31/2017 12:00 PM) Component Value Ref Range Glucose, POC 245 (H) 70 - 100 MG/DL Specimen Performing Laboratory [facility] [address] [place] [address] 13563 POC GLUCOSE (12/31/2017 7:50 AM) Component Value Ref Range Glucose, POC 175 (H) 70 - 100 MG/DL Specimen Performing Laboratory [facility] [address] [place] [address] 75278 POC GLUCOSE (12/31/2017 3:03 AM) Component Value Ref Range Glucose, POC 198 (H) 70 - 100 MG/DL Specimen Performing Laboratory [facility] [address] [place] [address] 40678 IONIZED CALCIUM (12/31/2017 3:03 AM) Component Value Ref Range Ionized Calcium 1.09 1.0 - 1.3 MMOL/L Specimen Performing Laboratory Blood [facility] [address] [place] [address] 28568 PHOSPHORUS (12/31/2017 3:03 AM) Component Value Ref Range Phosphorus 2.4 2.0 - 4.0 MG/DL Specimen Performing Laboratory Blood [facility] [address] [place] [address] 84177 MAGNESIUM (12/31/2017 3:03 AM) Component Value Ref Range Magnesium 2.0 1.6 - 2.6 mg/dL Specimen Performing Laboratory Blood [facility] [address] [place] [address] 53923 BASIC METABOLIC PANEL (12/31/2017 3:03 AM) Component [...] Specimen Performing Laboratory Blood MAIN LAB [address] [place] [address] CBC AND DIFF (12/31/2017 3:03 AM) Component [...] Specimen Performing Laboratory Blood MAIN LAB [address] [place] [address] POC GLUCOSE (12/30/2017 9:30 PM) Component Value Ref Range Glucose, POC 242 (H) 70 - 100 MG/DL Specimen Performing Laboratory MAIN LAB [address] [place] [address] POC GLUCOSE (12/30/2017 4:21 PM) Component Value Ref Range Glucose, POC 148 (H) 70 - 100 MG/DL Specimen Performing Laboratory MAIN LAB [address] [place] [address] 24607 POC GLUCOSE (12/30/2017 11:59 AM) Component Value Ref Range Glucose, POC 142 (H) 70 - 100 MG/DL Specimen Performing Laboratory [facility] [address] [place] [address] [id number] MAGNESIUM (12/30/2017 10:31 AM) Component Value Ref Range Magnesium 2.2 1.6 - 2.6 mg/dL Specimen Performing Laboratory Blood [facility] [address] [place] [address] [id number] POTASSIUM (12/30/2017 10:31 AM) Component Value Ref Range Potassium 3.8 3.5 - 5.1 MMOL/L Specimen Performing Laboratory Blood [facility] [address] [place] [address] 47585 POC GLUCOSE (12/30/2017 8:28 AM) Component Value Ref Range Glucose, POC 130 (H) 70 - 100 MG/DL Specimen Performing Laboratory [facility] [address] [place] [address] 60211 POC GLUCOSE (12/30/2017 5:52 AM) Component Value Ref Range Glucose, POC 144 (H) 70 - 100 MG/DL Specimen Performing Laboratory [facility] [address] [place] [address] 95782 POC GLUCOSE (12/30/2017 4:32 AM) Component Value Ref Range Glucose, POC 153 (H) 70 - 100 MG/DL Specimen Performing Laboratory [facility] [address] [place] [address] 93195 CTA HEAD WO/W CONTR+POST PRO (12/30/2017 4:18 [...] Interface, Radiant Results - 12/30/2017 12:48 PM AG SERVICE MANAGER EXAM: CTA HEAD HISTORY: Female, 72 years. [...] 100 MG/DL Specimen Performing Laboratory MAIN [facility] [address] [place] [address] 68231 TROPONIN-I (12/30/2017 2:05 AM) Component Value Ref Range Troponin-I 0.03 0.0 - 0.05 NG/ML Specimen Performing Laboratory MAIN LAB [address] [place] [address] 82650 IONIZED CALCIUM (12/30/2017 2:05 AM) Component Value Ref Range Ionized Calcium 1.15 1.0 - 1.3 MMOL/L Specimen Performing Laboratory Blood MAIN [facility] [address] [place] [address] 60844 PHOSPHORUS (12/30/2017 2:05 AM) Component Value Ref Range Phosphorus 2.9 2.0 - 4.0 MG/DL Specimen Performing Laboratory Blood [facility]IN [facility] [address] [place] [address] 48009 MAGNESIUM (12/30/2017 2:05 AM) Component Value Ref Range Magnesium 1.5 (L) 1.6 - 2.6 mg/dL Specimen Performing Laboratory Blood MAIN [facility] [address] [place] [address] 64651 BASIC METABOLIC PANEL (12/30/2017 2:05 AM) Component [...] Specimen Performing Laboratory Blood [facility]IN [facility] [address] [place] [address] CBC AND DIFF (12/30/2017 2:05 AM) Component [...] Specimen Performing Laboratory Blood MAIN [facility] [address] [place] [address] POC GLUCOSE (12/30/2017 2:03 AM) Component Value Ref Range Glucose, POC 140 (H) 70 - 100 MG/DL Specimen Performing Laboratory [facility] [address] [place] [address] 09132 POC GLUCOSE (12/30/2017 1:09 AM) Component Value Ref Range Glucose, POC 129 (H) 70 - 100 MG/DL Specimen Performing Laboratory [facility] [address] [place] [address] 51250 POC GLUCOSE (12/30/2017 12:17 AM) Component Value Ref Range Glucose, POC 150 (H) 70 - 100 MG/DL Specimen Performing Laboratory [facility] [address] [place] [address] 51823 POC GLUCOSE (12/29/2017 11:21 PM) Component Value Ref Range Glucose, POC 174 (H) 70 - 100 MG/DL Specimen Performing Laboratory [address] [address] ECG-SCAN (12/29/2017 11:15 PM) Narrative Ordered by an unspecified provider. POC GLUCOSE (12/29/2017 10:12 PM) Component Value Ref Range Glucose, POC 170 (H) 70 - 100 MG/DL Specimen Performing Laboratory [facility] [address] [place] [address] 23228 POC GLUCOSE (12/29/2017 9:16 PM) Component Value Ref Range Glucose, POC 194 (H) 70 - 100 MG/DL Specimen Performing Laboratory [address] [address] POC GLUCOSE (12/29/2017 8:13 PM) Component Value Ref Range Glucose, POC 160 (H) 70 - 100 MG/DL Specimen Performing Laboratory [facility] [address] [place] [address] 60617 POC GLUCOSE (12/29/2017 6:58 PM) Component Value Ref Range Glucose, POC 168 (H) 70 - 100 MG/DL Specimen Performing Laboratory [facility] [address] [place] [address] 9[address]10 POC GLUCOSE (12/29/2017 6:01 PM) Component Value Ref Range Glucose, POC 202 (H) 70 - 100 MG/DL Specimen Performing Laboratory [facility] [address] [place] [address] 46969 POC GLUCOSE (12/29/2017 4:56 PM) Component Value Ref Range Glucose, POC 203 (H) 70 - 100 MG/DL Specimen Performing Laboratory [facility] [address] [place] [address] 53700 POC GLUCOSE (12/29/2017 3:55 PM) Component Value Ref Range Glucose, POC 217 (H) 70 - 100 MG/DL Specimen Performing Laboratory [facility] [address] [place] [address] 08267 POC GLUCOSE (12/29/2017 3:12 PM) Component Value Ref Range Glucose, POC 230 (H) 70 - 100 MG/DL Specimen Performing Laboratory [facility] [address] [place] [address] 45894 GLUCOSE,BG (12/29/2017 1:50 PM) Component Value Ref Range Glucose 228 (H) 70 - 100 MG/DL Specimen Performing Laboratory Blood [address] [address] HEMOGLOBIN & HEMATOCRIT, BG (12/29/2017 1:50 PM) Component Value Ref Range Hemoglobin BG 11.0 (L) 12.0 - 15.0 GM/DL Hematocrit BG 33.8 (L) 36 - 45 % Specimen Performing Laboratory Blood [address] [address] SODIUM,BG (12/29/2017 1:50 PM) Component Value Ref Range Sodium 136 (L) 137 - 147 MMOL/L Specimen Performing Laboratory Blood [address] [address] POTASSIUM, BG (12/29/2017 1:50 PM) Component Value Ref Range Potassium 4.3 3.5 - 5.1 MMOL/L Specimen Performing Laboratory Blood [facility] [address] [place] [address] 73589 LACTIC ACID (BG - RAPID LACTATE) (12/29/2017 1:50 PM) Component Value Ref Range Lactic Acid,BG 1.2 0.5 - 2.0 MMOL/L Specimen Performing Laboratory Blood [facility] [address] [place] [address]1976 IONIZED CALCIUM,BG (12/29/2017 1:50 PM) Component Value Ref Range Ionized Calcium 1.12 1.0 - 1.3 MMOL/L Specimen Performing Laboratory Blood [facility] [address] [place] [address] BLOOD GASES, ARTERIAL (12/29/2017 1:50 PM) Component Value Ref Range pH-Arterial 7.38 7.35 - 7.45 pCO2-Arterial 31 (L) 35 - 45 MMHG pO2-Arterial 192 (H) 80 - 100 MMHG Base Deficit-Arterial 5.9 MMOL/L O2 Sat-Arterial 99.6 (H) 95 - 99 % Uiueqxxgjjh-ZPB-Ylt 19.6 (L) 21 - 28 MMOL/L Specimen Performing Laboratory Blood, arterial - Blood [facility] [address] [place] [address] BLOOD TYPE CONFIRMATION - ORDER ONLY IF REQUESTED BY LAB (12/29/2017 12:01 PM) Component Value Ref Range ABO/RH(D) A NEG Specimen Performing Laboratory Blood [facility] [address] [place] [address] IR ARTERIOGRAM NEURO (12/29/2017 10:56 AM) Specimen [...] Neurointerventionalist:Ruben Helm MD Contrast - 200 cc [id number] Total mGy - 1821 Anesthesia: General endotracheal [...] establishing arterial access. RCCA Technique A 5 [place] 100 cm Vert catheter was advanced over a 150 cm 0.035 [place] wire over the aortic arch and into [...] under fluoroscopic and roadmap guidance over the [place] wire and images were obtained in biplane [...] Interface, Radiant Results - 12/29/2017 3:10 PM AG SERVICE MANAGER Cerebral Angiogram Indication - SAH Procedures Performed [...] Ruben Helm MD Contrast - 200 cc [id number] Total mGy - 1821 Anesthesia: General endotracheal [...] establishing arterial access. RCCA Technique A 5 [place] 100 cm Vert catheter was advanced over a 150 cm 0.035 [place] wire over the aortic arch and into [...] under fluoroscopic and roadmap guidance over the [place] wire and images were obtained in biplane [...] Sat-Arterial 99.3 (H) 95 - 99 % Cxyxdjaulwm-ENE-Icb 20.5 (L) 21 - 28 MMOL/L Specimen Performing Laboratory [facility] [address] [place] [address] TYPE & CROSSMATCH (12/29/2017 10:45 AM) Component Value Ref Range Units Ordered 2 Crossmatch Expires 01/01/2018 Record Check 2ND TYPE REQUIRED ABO/RH(D) A NEG Antibody Screen NEG Electronic Crossmatch YES Unit Number [id number] Blood Component Type RBC,ADSOL,LEUKO REDUCED Unit Division 0 Status OF Unit REL FROM ALLOC Transfusion Status OK TO TRANSFUSE Crossmatch Result COMPATIBLE,ELECTRONIC Unit Number [id number] Blood Component Type RBC,ADSOL,LEUKO REDUCED,2ND CONT. Unit Division 0 Status OF Unit REL FROM ALLOC Transfusion Status OK TO TRANSFUSE Crossmatch Result COMPATIBLE,ELECTRONIC Specimen Performing Laboratory Blood [facility] [address] [place] [address] CTA HEAD WO/W CONTR+POST PRO (12/29/2017 7:00 [...] Interface, Radiant Results - 12/29/2017 8:39 AM AG SERVICE MANAGER Exam: CTA of the head. History: Subarachnoid [...] level <7%. Specimen Performing Laboratory MAIN LAB [address] [place] [address] IONIZED CALCIUM (12/29/2017 5:44 AM) Component Value Ref Range Ionized Calcium 1.15 1.0 - 1.3 MMOL/L Specimen Performing Laboratory Blood [facility] [address] [place] [address] LIPID PROFILE (12/29/2017 5:44 AM) Component Value [...] Specimen Performing Laboratory Blood [facility] [address] [place] [address] LACTIC ACID(LACTATE) (12/29/2017 5:44 AM) Component Value Ref Range Lactic Acid 1.7 0.5 - 2.0 MMOL/L Specimen Performing Laboratory Blood [facility] [address] [place] [address] PHOSPHORUS (12/29/2017 5:44 AM) Component Value Ref Range Phosphorus 3.2 2.0 - 4.0 MG/DL Specimen Performing Laboratory Blood [facility]IN [facility] [address] [place] [address] MAGNESIUM (12/29/2017 5:44 AM) Component Value Ref Range Magnesium 1.5 (L) 1.6 - 2.6 mg/dL Specimen Performing Laboratory Blood [facility] [address] [place] [address] COMPREHENSIVE METABOLIC PANEL (12/29/2017 5:44 AM) Component [...] Performing Laboratory [facility] [address] [place] [address] PTT (APTT) (12/29/2017 5:44 AM) Component Value Ref Range APTT 24.8 21.0 - 39.0 SEC Specimen Performing Laboratory [facility] [address] [place] [address] PROTIME INR (PT) (12/29/2017 5:44 AM) Component Value Ref Range INR 1.1 0.8 - 1.2 Specimen Performing Laboratory [facility] [address] [place] [address] CBC AND DIFF (12/29/2017 5:44 AM) Component [...] Specimen Performing Laboratory Blood [facility]IN [facility] [address] [place] [address] in this encounter Visit Diagnoses Diagnosis Subarachnoid [...] Action Date Dose Rate Site acetaminophen (TYLENOL) oral solution 650 mg 650 mg, Per NG tube, EVERY 4 HOURS PRN, Starting Thu12/29/17 at 0311, Until Thu01/13/18 at 1244, Pain non-opioid: may be used alone or in combination with opioid analgesia, Temp > 38.5 C, TOTAL ACETAMINOPHEN DOSE NOT TO EXCEED 4GM DAILY acetaminophen (TYLENOL) tablet 650 mg Given 01/12/2018 03:10 AG SERVICE MANAGER 650 mg 650 mg, Oral, EVERY 4 HOURS PRN, Starting Thu12/29/17 at 0311, Until Thu01/13/18 at 1244, Pain non-opioid: may be used alone or in combination with opioid analgesia, Temp > 38.5 C, TOTAL ACETAMINOPHEN DOSE NOT TO EXCEED 4GM DAILY Given 01/12/2018 13:56 AG SERVICE MANAGER 650 mg Given 01/12/2018 21:35 AG SERVICE MANAGER 650 mg bisacodyl (DULCOLAX) rectal suppository 10 mg 10 mg, Rectal, DAILY PRN, Starting Thu12/30/17 at 1200, Until Thu01/13/18 at 1244, Constipation AK, Please give if no BM in > 24 hours ceFAZolin (ANCEF) IVP 1 g Given 12/30/2017 00:55 AG SERVICE MANAGER 1 g 1 g, Intravenous, EVERY 8 HOURS, 3 doses, First dose on Thu12/30/17 at 0000, Last dose on Thu12/30/17 at 1600, IV PUSH -- RECONSTITUTE each 1 g vial by adding 10 mL 0.9% NACL Given 12/30/2017 08:32 AG SERVICE MANAGER 1 g Given 12/30/2017 16:24 AG SERVICE MANAGER 1 g dexamethasone (DECADRON) injection 4 mg Given 12/31/2017 18:13 AG SERVICE MANAGER 4 mg 4 mg, Intravenous, 1 mL, Administer over 5 Minutes, EVERY 6 HOURS, 5 doses, First dose on Thu12/31/17 at 0645, Last dose on Thu01/01/18 at 0600 Given 12/31/2017 23:54 AG SERVICE MANAGER 4 mg Given 01/01/2018 06:10 AG SERVICE MANAGER 4 mg DEXAMETHASONE SODIUM PHOSPHATE 4 MG/ML IJ SOLN (Cabinet Override) NOW, 1 dose, Thu12/31/17 at 0645, Created by cabinet override docusate (COLACE) capsule 100 mg Given 12/30/2017 21:24 AG SERVICE MANAGER 100 mg 100 mg, Oral, TWICE DAILY, First dose on Thu12/29/17 at 0900, Until Discontinued, Hold for loose stools Given 12/31/2017 08:52 AG SERVICE MANAGER 100 mg Given 01/02/2018 20:40 AG SERVICE MANAGER 100 mg fentaNYL citrate PF (SUBLIMAZE) injection 25-50 Given 12/29/2017 05:34 AG SERVICE MANAGER 25 mcg mcg 25-50 mcg, Intravenous, EVERY 1 HOUR PRN, Starting Thu12/29/17 at 0312, Until Amy 12/31/17 at 0950, Pain Injectable fludrocortisone (FLORINEF) tablet 0.1 mg Given 01/07/2018 08:41 AG SERVICE MANAGER 0.1 mg 0.1 mg, Oral, TWICE DAILY, First dose on Thu01/05/18 at 0900, Until Discontinued Given 01/07/2018 21:32 AG SERVICE MANAGER 0.1 mg Given 01/08/2018 09:33 AG SERVICE MANAGER 0.1 mg glyBURIDE (DIABETA) tablet 2.5 mg Given 01/12/2018 08:11 AG SERVICE MANAGER 2.5 mg 2.5 mg, Oral, TWICE DAILY WITH MEALS, First dose on Thu01/10/18 at 2030, Until Discontinued Given 01/12/2018 18:23 AG SERVICE MANAGER 2.5 mg Given 01/13/2018 08:02 AG SERVICE MANAGER 2.5 mg heparin (porcine) PF syringe Given 01/12/2018 13:56 AG SERVICE MANAGER 5,000 Units Abdominal Tissue 5,000 Units 5,000 Units, Subcutaneous, EVERY 8 HOURS, First dose on Thu12/30/17 at 2200, Until Discontinued, NOTE: This is a HIGH ALERT Medication. Given 01/12/2018 21:33 AG SERVICE MANAGER 5,000 Units Abdomen:LLQ Given 01/13/2018 07:04 AG SERVICE MANAGER 5,000 Units Abdomen:RLQ hydrALAZINE (APRESOLINE) injection 10 mg Given 12/29/2017 07:58 AG SERVICE MANAGER 10 mg 10 mg, Intravenous, EVERY 6 HOURS PRN, Starting Thu12/29/17 at 0311, Until Thu12/29/17 at 0921, Systolic Blood Pressure..., >160 mmHg or MAP >110 mmHg or DBP >90 mmHg hydrALAZINE (APRESOLINE) injection 10 mg Given 12/29/2017 17:59 AG SERVICE MANAGER 10 mg 10 mg, Intravenous, EVERY 6 HOURS PRN, Starting Thu12/29/17 at 0921, Until Amy 12/31/17 at 0946, Systolic Blood Pressure..., >140 mmHg or MAP >110 mmHg or DBP >90 mmHg hydrALAZINE (APRESOLINE) injection 10 mg Given 01/03/2018 03:25 AG SERVICE MANAGER 10 mg 10 mg, Intravenous, EVERY 6 HOURS PRN, Starting Thu01/01/18 at 1542, Until Thu01/07/18 at 0848, Systolic Blood Pressure..., >180 mmHg or MAP >110 mmHg or DBP >90 mmHg insulin aspart (NOVOLOG FLEXPEN) Given 12/29/2017 17:05 AG SERVICE MANAGER 4 Units Arm, Left injection PEN 0-14 [...] times daily). *POC glucose 140-180mg/dL at 08, , 17 administer 2 units insulin, at 21, 03 administer 0 units. *POC glucose 181-220mg/dL at , , administer 4 units insulin, at , 03 administer 2 units. *POC glucose 221-260mg/dL at , , administer 6 units insulin, at 21, 03 administer 4 units. *POC glucose 261-300mg/dL at , , administer 8 units insulin, at , 03 administer 6 units. *POC glucose 301-350mg/dL at , 12, 17 administer 10 units insulin, at 21, 03 administer 8 units. *POC glucose 351-400mg/dL at , 12, 17 administer 12 units insulin, at 21, 03 administer 10 units. *POC glucose >400mg/dL at 08, 12, 17 administer 14 units insulin, at 21, 03 administer 12 units. *For POCT glucose >350 mg/dL give correction bolus and recheck POCT glucose in 2 hours. If POCT glucose at 2 hours >300mg/dL call physician for further orders. NOTE: This is a HIGH ALERT Medication. insulin aspart (NOVOLOG FLEXPEN) Given 12/30/2017 21:30 AG SERVICE MANAGER 4 Units Arm, Right injection PEN 0-14 [...] , administer 8 units insulin, at , * administer 6 units. -POC glucose 301-350mg/dL at , , administer 10 units insulin, at , * administer 8 units. -POC glucose 351-400mg/dL at [...] a HIGH ALERT Medication. Given 12/31/2017 03:05 AG SERVICE MANAGER 2 Units Arm, Right Given 12/31/2017 08:52 AG SERVICE MANAGER 2 Units Abdomen:RLQ insulin aspart (NOVOLOG FLEXPEN) Given 01/10/2018 17:22 AG SERVICE MANAGER 8 Units Abdominal Tissue injection PEN 0-28 Units 0-28 Units, Subcutaneous, BEFORE MEALS AND AT BEDTIME, First dose on Thu12/31/17 at 1100, Until Discontinued, -POC glucose 140-180mg/dL at , , administer 4 units insulin, at 21, 03* administer 0 units. -POC glucose 181-220mg/dL at , , administer 8 units insulin, at , 03* administer 4 units. -POC glucose 221-260mg/dL at , administer 12 units insulin, at , 03* administer 8 units. -POC glucose 261-300mg/dL at , administer 16 units insulin, at , * administer 12 units. -POC glucose 301-350mg/dL at , administer 20 units insulin, at , * administer 16 units. -POC glucose 351-400mg/dL at , administer 24 units insulin, at , 03* administer 20 units. -POC glucose >400mg/dL at , administer 28 units insulin, at , [...] a HIGH ALERT Medication. Given 01/11/2018 08:26 AG SERVICE MANAGER 8 Units Arm, Right Given 01/12/2018 12:13 AG SERVICE MANAGER 4 Units Arm, Right insulin glargine (LANTUS SOLOSTAR, Given 01/05/2018 12:34 AG SERVICE MANAGER 10 Units Arm , Right BASAGLAR) injection PEN 10 Units 10 Units, Subcutaneous, DAILY, First dose on Thu01/05/18 at 1200, Until Discontinued, Continue if NPO. DO NOT mix with other insulins -- Do not mix with other insulins -- NOTE: This is a HIGH ALERT Medication. Given 01/06/2018 11:13 AG SERVICE MANAGER 10 Units Abdomen:LLQ insulin glargine (LANTUS SOLOSTAR, Given 01/08/2018 17:44 AG SERVICE MANAGER 16 Units Arm , Right BASAGLAR) injection PEN 16 Units 16 Units, Subcutaneous, DAILY, First dose on Thu01/08/18 at 1800, Until Discontinued, Continue if NPO. DO NOT mix with other insulins -- Do not mix with other insulins -- NOTE: This is a HIGH ALERT Medication. insulin glargine (LANTUS SOLOSTAR, Given 01/09/2018 18:05 AG SERVICE MANAGER 18 Units Arm , Right BASAGLAR) injection PEN 18 Units 18 Units, Subcutaneous, DAILY, First dose on Thu01/09/18 at 1800, Until Discontinued, Continue if NPO. DO NOT mix with other insulins -- Do not mix with other insulins -- NOTE: This is a HIGH ALERT Medication. Given 01/10/2018 17:22 AG SERVICE MANAGER 18 Units Abdominal Tissue insulin glargine (LANTUS SOLOSTAR, Given 01/07/2018 11:54 AG SERVICE MANAGER 20 Units Arm , Left BASAGLAR) injection PEN 20 Units 20 Units, Subcutaneous, DAILY, First dose on Amy 01/07/18 at 1200, Until Discontinued, Continue if NPO. DO NOT mix with other insulins -- Do not mix with other insulins -- NOTE: This is a HIGH ALERT Medication. insulin regular (NOVOLIN R) Dose/Rate Change 12/30/2017 00:23 AG SERVICE MANAGER 2 Units/hr 2 mL/hr 100 Units in sodium chloride 0.9% (NS) 100 mL IV drip (std conc) 1-32 Units/hr (1-32 mL/hr) 100 mL, at 1-32 mL/hr, Intravenous, TITRATE DIRECTED , Starting 12/29/17 at 1730, Until Thu12/30/17 at 0859, (Administration Instructions were omitted from this summary because they were too long) Dose/Rate Change 12/30/2017 01:11 AG SERVICE MANAGER 1.5 Units/hr 1.5 mL/hr Dose/Rate Verify 12/30/2017 07:27 AG SERVICE MANAGER 1.5 Units/hr 1.5 mL/hr iopamidol 300 (ISOVUE-300) injection 250 mL Given 12/29/2017 11:00 AG SERVICE MANAGER 250 mL 250 mL, Intra-arterial, ONCE, 1 dose, 12/29/17 at 1100, NOTE: This is a HIGH ALERT Medication. iopamidol 370 (ISOVUE-370) injection 55 mL Given 12/30/2017 04:30 AG SERVICE MANAGER 55 mL 55 mL, Intravenous, ONCE, 1 dose, 12/30/17 at 0430, NOTE: This is a HIGH ALERT Medication. iopamidol 370 (ISOVUE-370) injection 60 mL Given 12/29/2017 07:15 AG SERVICE MANAGER 60 mL 60 mL, Intravenous, ONCE, 1 dose, 12/29/17 at 0715, NOTE: This is a HIGH ALERT Medication. labetalol (NORMODYNE) injection 10-20 mg Given 12/29/2017 05:21 AG SERVICE MANAGER 10 mg 10-20 mg, Intravenous, EVERY 15 MIN PRN, Starting 12/29/17 at 0311, Until 12/29/17 at 0921, Other..., For SBP > 160 mmHg or MAP > 110 mmHg OR DBP >90 mmHg, Hold for HR < 60/min and/or MAP < 110 mmHg or SBP < 160 mmHg or DBP <90 mmHg. labetalol (NORMODYNE) injection 10-20 mg Given 12/30/2017 19:05 AG SERVICE MANAGER 10 mg 10-20 mg, Intravenous, EVERY 15 MIN PRN, Starting 12/29/17 at 0921, Until Amy 12/31/17 at 0946, Other..., For SBP > 140 mmHg or MAP > 110 mmHg OR DBP >90 mmHg, Hold for HR < 60/min and/or MAP < 110 mmHg or SBP < 160 mmHg or DBP <90 mmHg. lactated ringers infusion Given - New Bag 12/30/2017 05:48 AG SERVICE MANAGER 1,000 mL 100 mL/hr 1,000 mL, 1,000 mL, Intravenous, at 100 mL/hr, CONTINUOUS, Starting Thu12/30/17 at 0530, Until Thu12/30/17 at 0647 lactated ringers infusion Given - New Bag 12/30/2017 07:30 AG SERVICE MANAGER 1,000 mL 100 mL/hr 1,000 mL, 1,000 mL, Intravenous, at 100 mL/hr, ONCE, 1 dose, Thu12/30/17 at 0600 lactated ringers infusion Given - New Bag 01/01/2018 06:54 AG SERVICE MANAGER 500 mL 125 mL/hr 1,000 mL, 500 mL, Intravenous, at 125 mL/hr, ONCE, 1 dose, Thu01/01/18 at 0700 lactated ringers infusion Infusion Restarted 01/02/2018 12:15 AG SERVICE MANAGER 1,000 mL 60 mL/hr 1,000 mL, 1,000 mL, Intravenous, at 60 mL/hr, CONTINUOUS, Starting 01/02/18 at 0900, Until 01/04/18 at 0822 Given - New Bag 01/03/2018 03:24 AG SERVICE MANAGER 1,000 mL 60 mL/hr Given - New Bag 01/03/2018 23:46 AG SERVICE MANAGER 1,000 mL 60 mL/hr LACTATED RINGERS IV SOLP (Cabinet Override) NOW, 1 dose, Thu01/01/18 at 0700, Created by lidia fitzpatrick levETIRAcetam (KEPPRA) tablet 500 mg Given 01/11/2018 08:26 AG SERVICE MANAGER 500 mg 500 mg, Oral, TWICE DAILY, 27 doses, First dose on Thu12/30/17 at 0900, Last dose on Thu01/12/18 at 0900 Given 01/11/2018 21:35 AG SERVICE MANAGER 500 mg Given 01/12/2018 08:11 AG SERVICE MANAGER 500 mg levETIRAcetam in NaCl (iso-os) (KEPPRA) Given - New Bag 12/29/2017 20:19 AG SERVICE MANAGER 500 mg IVPB (premade) 500 mg 100 mL 500 mg, 100 mL, Administer over 15 Minutes, Intravenous, TWICE DAILY, First dose on Thu12/29/17 at 0900, Until Discontinued magnesium sulfate 1 g/D5W 100 Given - New Bag 01/07/2018 05:26 AG SERVICE MANAGER 1 g 100 mL/hr mL IVPB 1 g, Intravenous, 100 mL, Administer over 1 Hours, NEEDED, Starting Thu12/29/17 at 0413, Until Amy 01/07/18 at 0848, Other..., magnesium replacement (see Admin [...] Magnesium. Given - New Bag 01/07/2018 05:29 AG SERVICE MANAGER 1 g 100 mL/hr Given - New Bag 01/07/2018 06:48 AG SERVICE MANAGER 1 g 100 mL/hr melatonin tablet 3 mg Given 01/04/2018 20:10 AG SERVICE MANAGER 3 mg 3 mg, Oral, AT BEDTIME DAILY, First dose on 01/03/18 at 2100, Until Discontinued Given 01/05/2018 21:54 AG SERVICE MANAGER 3 mg Given 01/06/2018 21:59 AG SERVICE MANAGER 3 mg melatonin tablet 5 mg Given 01/09/2018 21:00 AG SERVICE MANAGER 5 mg 5 mg, Oral, AT BEDTIME DAILY, First dose on Amy 01/07/18 at 2100, Until Discontinued Given 01/11/2018 21:35 AG SERVICE MANAGER 5 mg Given 01/12/2018 21:34 AG SERVICE MANAGER 5 mg metFORMIN (GLUCOPHAGE) tablet 500 mg Given 01/12/2018 08:11 AG SERVICE MANAGER 500 mg 500 mg, Oral, TWICE DAILY WITH MEALS, First dose on 01/10/18 at 2030, Until Discontinued Given 01/12/2018 18:23 AG SERVICE MANAGER 500 mg Given 01/13/2018 08:03 AG SERVICE MANAGER 500 mg methyldopa (ALDOMET) tablet 250 mg Given 01/12/2018 08:10 AG SERVICE MANAGER 250 mg 250 mg, Oral, TWICE DAILY, First dose on 12/30/17 at 1015, Until Discontinued Given 01/12/2018 21:34 AG SERVICE MANAGER 250 mg Given 01/13/2018 08:02 AG SERVICE MANAGER 250 mg milk of magnesia (CONC) oral suspension 10 mL Given 12/31/2017 08:52 AG SERVICE MANAGER 10 mL 10 mL, Oral, DAILY, First dose on 12/29/17 at 0900, Until Discontinued, May hold if BM within 24 hours of dose. 10 mL CONC=30 mL MOM modafinil (PROVIGIL) tablet 100 mg Given 01/02/2018 12:09 AG SERVICE MANAGER 100 mg 100 mg, Oral, DAILY, First dose on 01/02/18 at 1200, Until Discontinued Given 01/03/2018 08:29 AG SERVICE MANAGER 100 mg Given 01/04/2018 08:00 AG SERVICE MANAGER 100 mg niMODipine (NIMOTOP) capsule 60 mg Given 12/30/2017 23:54 AG SERVICE MANAGER 60 mg 60 mg, Oral, EVERY 4 HOURS, 126 doses, First dose on Thu12/30/17 at 0400, Last dose on Thu01/20/18 at 0000 Given 12/31/2017 05:00 AG SERVICE MANAGER 60 mg Given 12/31/2017 07:52 AG SERVICE MANAGER 60 mg niMODipine (NIMOTOP) capsule 60 mg Given 01/12/2018 21:33 AG SERVICE MANAGER 60 mg 60 mg, Oral, EVERY 4 HOURS, 85 doses, First dose on Thu01/06/18 at 0200, Last dose on Thu01/20/18 at 0200 Given 01/13/2018 02:43 AG SERVICE MANAGER 60 mg Given 01/13/2018 07:05 AG SERVICE MANAGER 60 mg niMODipine (NYMALIZE) 3 mg/ mL solution 60 mg Given 12/29/2017 20:19 AG SERVICE MANAGER 60 mg 60 mg, Feeding Tube, EVERY 4 HOURS, 126 doses, First dose on Thu12/29/17 at 0400, Last dose on Thu01/19/18 at 0000, Hold for SBP < 100 mmHg niMODipine (NYMALIZE) 3 mg/ mL solution 60 mg Given 12/31/2017 12:00 AG SERVICE MANAGER 60 mg 60 mg, Oral, EVERY 4 HOURS, First dose on Thu12/31/17 at 1200, Until Discontinued niMODipine (NYMALIZE) 3 mg/ mL solution 60 mg Given 01/05/2018 12:34 AG SERVICE MANAGER 60 mg 60 mg, Oral, EVERY 4 HOURS, 117 doses, First dose on Thu12/31/17 at 1600, Last dose on Thu01/20/18 at 0000 Given 01/05/2018 16:30 AG SERVICE MANAGER 60 mg Given 01/05/2018 21:53 AG SERVICE MANAGER 60 mg ondansetron (ZOFRAN) injection 4 mg 4 mg, Intravenous, EVERY 6 HOURS PRN, Starting Thu12/29/17 at 0311, Until Thu01/13/18 at 1244, Nausea/Vomiting Injectable oxyCODONE (ROXICODONE, OXY-IR) tablet 5 mg Given 01/05/2018 02:10 AG SERVICE MANAGER 5 mg 5 mg, Oral, EVERY 4 HOURS PRN, Starting Thu01/03/18 at 0900, Until Thu01/13/18 at 1244, Pain PO Given 01/08/2018 22:30 AG SERVICE MANAGER 5 mg Given 01/10/2018 17:20 AG SERVICE MANAGER 5 mg oxyCODONE (ROXICODONE, OXY-IR) tablet 5-15 mg Given 12/31/2017 23:11 AG SERVICE MANAGER 10 mg 5-15 mg, Oral, EVERY 4 HOURS PRN, Starting Thu12/29/17 at 1605, Until 01/03/18 at 0813, Pain PO Given 01/01/2018 20:05 AG SERVICE MANAGER 10 mg Given 01/03/2018 05:08 AG SERVICE MANAGER 10 mg potassium chloride SR (K-DUR) tablet 40-60 mEq Given 12/30/2017 04:44 AG SERVICE MANAGER 40 mEq 40-60 mEq, Oral, NEEDED, Starting 12/29/17 at 0412, Until Amy 01/07/18 at [...] break or crush tablet Given 12/30/2017 12:47 AG SERVICE MANAGER 40 mEq risperiDONE (RISPERDAL) tablet 0.5 mg Given 01/04/2018 23:24 AG SERVICE MANAGER 0.5 mg 0.5 mg, Oral, ONCE, 1 dose, 01/04/18 at 2300 senna/docusate (SENOKOT-S) tablet 1 tablet Given 12/30/2017 21:24 AG SERVICE MANAGER 1 tablet 1 tablet, Oral, TWICE DAILY, First dose on Thu12/29/17 at 0900, Until Discontinued, Hold for loose stools. If patient unable to take tablet, give 10 mL of senna/docusate (SENOKOT-S) solution. Send [employer] message to pharmacy. Given 12/31/2017 08:52 AG SERVICE MANAGER 1 tablet Given 01/02/2018 20:40 AG SERVICE MANAGER 1 tablet sodium chloride 0.9 % infusion Given - New Bag 12/29/2017 05:33 AG SERVICE MANAGER 75 mL/hr 1,000 mL, Intravenous, at 75 mL/hr, CONTINUOUS, Starting Thu12/29/17 at 0315, Until Thu12/29/17 at 1737 Given - New Bag 12/29/2017 08:34 AG SERVICE MANAGER sodium chloride 0.9 % infusion Given - New Bag 12/29/2017 08:41 AG SERVICE MANAGER 250 mL, 250 mL, Intravenous, at 0-300 mL/hr, CONTINUOUS, Starting Thu12/29/17 at 0615, Until Thu12/30/17 at 0855, Replace negative fluid balance 1:1 to maintain net zero. Given - New Bag 12/29/2017 11:20 AG SERVICE MANAGER Given - New Bag 12/30/2017 00:55 AG SERVICE MANAGER 250 mL 300 mL/hr sodium chloride 0.9 % infusion Given - New Bag 01/06/2018 09:00 AG SERVICE MANAGER 730 mL 1,000 mL, Intravenous, EVERY 4 HOURS, First dose on Thu01/06/18 at 0845, Until Discontinued, PRN Q 4 hrs for 1:1 fluid replacement Given - New Bag 01/07/2018 03:01 AG SERVICE MANAGER 560 mL sodium chloride 0.9 % infusion Given - New Bag 01/08/2018 09:37 AG SERVICE MANAGER 500 mL 500 mL, 500 mL, Intravenous, BOLUS, 1 dose, Thu01/08/18 at 0900 sodium chloride PF 0.9% injection 50 mL Given 12/29/2017 07:15 AG SERVICE MANAGER 50 mL 50 mL, Intravenous, ONCE, 1 dose, Thu12/29/17 at 0715, Intra-procedure (IR) sodium chloride PF 0.9% injection 50 mL Given 12/30/2017 04:30 AG SERVICE MANAGER 50 mL 50 mL, Intravenous, ONCE, 1 dose, Thu12/30/17 at 0430, Intra-procedure (IR) sodium chloride(#) inj for po solution 34 mEq Given 01/09/2018 18:01 AG SERVICE MANAGER 34 mEq 34 mEq, Oral, EVERY 6 HOURS, First dose on Thu01/03/18 at 1200, Until Discontinued Given 01/09/2018 23:44 AG SERVICE MANAGER 34 mEq Given 01/10/2018 05:42 AG SERVICE MANAGER 34 mEq sodium chloride(#) inj for po solution 34 mEq Given 01/12/2018 08:11 AG SERVICE MANAGER 34 mEq 34 mEq, Oral, EVERY 12 HOURS, First dose on Thu01/11/18 at 2100, Until Discontinued Given 01/12/2018 21:41 AG SERVICE MANAGER 34 mEq Given 01/13/2018 09:52 AG SERVICE MANAGER 34 mEq in this encounter
--- OUTSIDE RECORDS SUMMARY | 2018-03-02 16:08 | External Medical Summary | Encounter Summary ---
:1945 Author Organization [facility] Address [address] [facility] [address] [place] [address] Care Team Providers Name Role Phone Pastor Fatima MD Primary Care Provider Reason for Visit Auth/Cert Status Reason Specialty Diagnoses / Procedures Referred By Contact Referred To Contact Diagnoses Subarachnoid hemorrhage (HCC) Ruptured Aneurysm Subarachnoid hemorrhage (HCC) Encounter Details Date Type Department Care Team Description 12/29/2017 Anesthesia Event CA Operating Room Lul Smith MD [address] [facility] [address] [place] [address] [place], [place] [id number] Anesthesia Record Procedure Summary Procedure Name Responsible [...] Facility; R; Hand; 20 Dejah Portillo, G; Dislodgement; RN 12/29/17; 2216 Peripheral IV 12/29/17; 0539; RN; L; 12/29/17 0539 by 12/30/17 0645 by Hand; 22 G; 1; Dejah Portillo RN Kreszyn, Katelynn, Dislodgement; 12/30/17; RN 0645 ETT 12/29/17; 0846; [...] Catheter (Comment); 12/30/17; Rory Palma, Chantal Limon, Avni RN Wounds (NOT for 12/29/17; 1047; 12/29/17 1047 by 01/05/181999 by Pressure Injuries) Anterior; Groin; Rory Palma, Montez Moon RN Puncture Wound; Arterial access; 01/05/18; 1999 Peripheral IV 12/29/17; 1119; 12/29/17 1119 by 12/30/17 0352 by Provider (Placed by Shaneka Leone Kreszyn, Katelynn, Reese); R; Inner; REBEAMER RN Forearm; 18 G; 1; Dislodgement; 12/30/17; [...] Smith, MD Post-Anesthesia Vitals BP: 133/93 (12/29 1645) Temp: 36.4 C (97.5 F) (12/29 1644) [...] Lul Smith MD - 12/29/2017 11:15 AM MANAGER QUALITY SYSTEMS Formatting of this note may be different from the original. Anesthesia Pre-Procedure Evaluation Name: Yarely Dillon : 1945 Age: 72 y.o. Sex: female Procedure Date: 12/29/2017 Procedure: Procedure(s): REPAIR ANEURYSM CRANIOTOMY Physical Assessment Vital Signs (last filed in past 24 hours): BP: 168/63 (12/29 0630) Temp: 36.6 C (97.9 F) (12/29 509) Pulse: 88 (12/29 799) Respirations: 12 PER [...] blood products. Plan discussed with: anesthesiologist and REBEAMER. in this encounter Plan of Treatment Not on fileas of this encounter Visit Diagnoses Not on filein this encounter Administered Medications Inactive Administered Medications - up to 3 most recent administrations Medication Order MAR Action Action Date Dose Rate Site acetaminophen (OFIRMEV) injection Given 12/29/2017 15:29 MANAGER QUALITY SYSTEMS 1,000 mg Administer over 15 Minutes, INTRA-PROCEDURE MED, Starting 12/29/17 at 1529, Until 12/29/17 at 1651, Pain non-opioid: may be used alone or in combination with opioid analgesia, Anesthesia Intra-op ceFAZolin (ANCEF) injection Given 12/29/2017 12:06 MANAGER QUALITY SYSTEMS 2 g INTRA-PROCEDURE MED, Starting 12/29/17 at 1206, Until 12/29/17 at 1651, Anesthesia Intra-op Given 12/29/2017 16:00 MANAGER QUALITY SYSTEMS 2 g dexamethasone (DECADRON) injection Given 12/29/2017 12:22 MANAGER QUALITY SYSTEMS 6 mg Intravenous, INTRA-PROCEDURE MED, Starting 12/29/17 at 1222, Until 12/29/17 at 1651, Nausea/Vomiting Injectable, Anesthesia Intra-op electrolyte-A (PLASMA-LYTE A PH 7.4) Given - New Bag 12/29/2017 12:03 MANAGER QUALITY SYSTEMS injection INTRA-PROCEDURE MED(CONT), Starting 12/29/17 at 1203, Until Discontinued, Anesthesia Intra-op indocyanine green (IC GREEN) injection Given 12/29/2017 15:07 MANAGER QUALITY SYSTEMS 25 mg INTRA-PROCEDURE MED, Starting 12/29/17 at 1507, Until 12/29/17 at 1651, Anesthesia Intra-op insulin regular (NOVOLIN R) Given - New Bag 12/29/2017 14:19 MANAGER QUALITY SYSTEMS 4 Units/hr 4 mL/hr 100 Units in sodium chloride 0.9% (NS) 100 mL IV drip (std conc) 100 mL, INTRA-PROCEDURE MED(CONT), Starting 12/29/17 at 1419, Until 12/29/17 at 1651, Anesthesia Intra-op Bolus 12/29/2017 14:20 MANAGER QUALITY SYSTEMS 5 Units labetalol (NORMODYNE) injection Given 12/29/2017 16:34 MANAGER QUALITY SYSTEMS 5 mg INTRA-PROCEDURE MED, Starting 12/29/17 at 1634, Until 12/29/17 at 1651, Systolic Blood Pressure..., Anesthesia Intra-op Given 12/29/2017 16:48 MANAGER QUALITY SYSTEMS 5 mg levETIRAcetam (KEPPRA) 1,000 mg in Given - New Bag 12/29/2017 12:17 MANAGER QUALITY SYSTEMS 1,000 mg sodium chloride 0.9% (NS) 100 mL IVPB 100 mL, Administer over 15 Minutes, INTRA-PROCEDURE MED(CONT), Starting 12/29/17 at 1217, Until Discontinued, Anesthesia Intra-op mannitol (OSMITROL) 20 % infusion Given 12/29/2017 11:59 MANAGER QUALITY SYSTEMS 50 g INTRA-PROCEDURE MED, Starting 12/29/17 at 1159, Until 12/29/17 at 1651, Serum Osmolarity..., Anesthesia Intra-op phenylephrine Dose/Rate Change 12/29/2017 15:40 0.5 mcg/kg/min 73.5 mL/hr (LYDIA-SYNEPHRINE) 10 mg MANAGER QUALITY SYSTEMS in sodium chloride 0.9% (NS) 250 mL IV drip (std conc) 250 mL, INTRA-PROCEDURE MED(CONT), Starting 12/29/17 at 1120, Until Discontinued, Anesthesia Intra-op Dose/Rate Change 12/29/2017 15:50 MANAGER QUALITY SYSTEMS 0.45 mcg/kg/min 66.2 mL/hr Dose/Rate Change 12/29/2017 16:06 MANAGER QUALITY SYSTEMS 0.3 mcg/kg/min 44.1 mL/hr phenylephrine in NS Injection Given 12/29/2017 12:45 MANAGER QUALITY SYSTEMS 100 mcg Intravenous, INTRA-PROCEDURE MED, Starting 12/29/17 at 1245, Until 12/29/17 at 1651, Symptomatic Hypotension, Anesthesia Intra-op Given 12/29/2017 13:05 MANAGER [employer]ALITY SYSTEMS 50 mcg Given 12/29/2017 13:15 MANAGER QUALITY SYSTEMS 50 mcg propofol (DIPRIVAN) infusion Bolus 12/29/2017 14:00 MANAGER QUALITY SYSTEMS 100,000 mcg 100 mL, Intravenous, INTRA-PROCEDURE MED(CONT), Starting 12/29/17 at 1214, Until Discontinued, Anesthesia Intra-op Dose/Rate Change 12/29/2017 15:42 MANAGER QUALITY SYSTEMS 70 mcg/kg/min 41.2 mL/hr Dose/Rate Change 12/29/2017 15:57 MANAGER QUALITY SYSTEMS 55 mcg/kg/min 32.3 mL/hr remifentanil (ULTIVA) 1 mg/3 Dose/Rate 12/29/2017 13:19 0.08 mcg/kg/min 9.4 mL/hr mL 1,000 mcg in sodium Change MANAGER QUALITY SYSTEMS chloride 0.9% (NS) 20 mL Injection Intravenous, INTRA-PROCEDURE MED(CONT), Starting 12/29/17 at 1155, Until Discontinued, Anesthesia Intra-op Dose/Rate Change 12/29/2017 15:18 MANAGER QUALITY SYSTEMS 0.06 mcg/kg/min 7.1 mL/hr Dose/Rate Change 12/29/2017 15:49 MANAGER QUALITY SYSTEMS 0.08 mcg/kg/min 9.4 mL/hr sodium chloride 0.9 % infusion Given - New Bag 12/29/2017 08:41 MANAGER QUALITY SYSTEMS 250 mL, 250 mL, Intravenous, at 0-300 mL/hr, CONTINUOUS, Starting 12/29/17 at 0615, Until 12/30/17 at 0855, Replace negative fluid balance 1:1 to maintain net zero. Given - New Bag 12/29/2017 11:20 MANAGER QUALITY SYSTEMS Given - New Bag 12/30/2017 00:55 MANAGER QUALITY SYSTEMS 250 mL 300 mL/hr sodium chloride 0.9 % infusion Given - New Bag 12/29/2017 11:30 MANAGER QUALITY SYSTEMS INTRA-PROCEDURE MED(CONT), Starting 12/29/17 at 1130, Until Discontinued, Anesthesia Intra-op in this encounter
--- OUTSIDE RECORDS SUMMARY | 2018-03-02 16:09 | External Medical Summary | Encounter Summary ---
:1945 Author Organization [facility] Address [address] [place] [address] Care Team Providers Name Role Phone Pastor Fatima MD Primary Care Provider Reason for Visit Auth/Cert Status Reason Specialty Diagnoses / Procedures Referred By Contact Referred To Contact Diagnoses Subarachnoid hemorrhage (HCC) Ruptured Aneurysm Subarachnoid hemorrhage (HCC) Encounter Details Date Type Department Care Team Description 12/29/2017 Surgery CA Operating Room Oumar Mercer MD REPAIR ANEURYSM [address] [place] [address] [place] [address] [place], [place] [id number] Social History Tobacco Use Types Packs/Day Years Used Date Former Smoker Smokeless Tobacco: Never Used Alcohol Use Drinks/Week oz/Week Comments No Sex Assigned at Date Recorded Not on file as of this encounter Last Filed Vital Signs Vital Sign Reading Time Taken Blood Pressure 147/68 01/13/2018 8:03 AM [employer] Pulse 82 01/13/2018 8:03 AM [employer] Temperature 37.1 C (98.8 F) 01/13/2018 8:03 AM [employer] Respiratory Rate - - Oxygen Saturation 99% 01/13/2018 8:03 AM [employer] Inhaled Oxygen Concentration - - Weight 101.8 kg (224 lb 6.9 oz) 01/07/2018 3:00 AM [employer] Height 165.1 cm (5' 5") 12/30/2017 3:00 PM [employer] Body Mass Index 37.35 01/07/2018 3:00 AM [employer] in this encounter Functional Status Functional Status [...] of DM, HTN who presentsin transfer from [facility] for management of SAH. The patient [...] CT head and was subsequently transferred to [facility] for further management. Admission Lab/Radiology studies notable [...] aneurysm repair. 12/30-01/06: ICU care. Vasospasm watch. PT/OT/HOOP MAKER HELPER MACHINE. Rehab consulted. 01/07: Progressed to med/surg status. [...] EVAL & TREAT PT EVAL & TREAT HOOP MAKER HELPER MACHINE CONSULT SPEECH-LANGUAGE EVAL & TX Report These Signs and Symptoms Call if temperature greater than 101, incision red, drainage or odor noted from incision, pain that is uncontrolled with pain medication, numbness or weakness, vision changes, trouble with speech or slurring of speech, or any questions/ concerns. Questions About Your Stay For questions or concerns regarding your hospital stay. Call [phone] Discharging attending physician: OUMAR MERCER [[id number]] Regular Diet You have no dietary restriction. Please continue with a healthy balanced diet. Additional Discharge Instructions Neurosurgery follow up: Your appointment will be located in the Medical Office Building, just left of the hospital's main entrance. If you need to reschedule, please call [phone]. If you have any questions once at home during the work week between the hours of 0800 - 1500, pleasecall Indu at [phone]. Otherwise, please call the main hospital number ([phone]) and ask for the neurosurgery resident java application developer to be paged. Current Discharge Medication List [...] Post - Op with Oumar Mercer MD [facility] - Neurosurgery ([facility]) 2nd Floor Pod [address] [facility] Med Office [facility] [id number] Pending items needing follow up: none [...] Will be going to rehab facility in [place], [place]. This RN to call report to [...] Continue current care -- Nimotop NA 133 PT/OT/HOOP MAKER HELPER MACHINE Pain controlled Appreciate Medicine recommendations Discharge planning -- rehab facility this AM; CM/SW involved. Prophylaxis: A)GI: PPI B) Lines: None; PIV C) Urinary Catheter: No D) Antibiotic Usage: No E) VTE: Pharmacological prophylaxis; SQ Heparin and Mechanical prophylaxis; Sequential compression device F) Restraints: Patient assessed for need for restraints. Anabel Mitchell, EMS INSTRUCTOR 5572 Please call [phone] with any questions.Bridgett Mcmahan, PT - 01/12/2018 [...] PROGRESS NOTE Patient Name: Yarely Dillon Room/Bed: VF7519/01 Admitting Diagnosis: Ruptured Aneurysm Subarachnoid hemorrhage (HCC) [...] obtained with evidence of SAH, transferred to [facility] for management of traumatic vs aneurysmal SAH. 12/29: OR for Left pterional craniotomy for clipping of AComm aneurysm. Precautions: Falls ([place] video monitor ) Pain / Complaints: Patient agrees to participate in therapy Pain Location: Back Pain Level Current: 7 (RN notified) Comments: Patient positioned for comfort in recliner uppon therapist arrival and departure with needs met and precautions in place. Patient watching TV show. Catchafireas[employer] potline monitor notified of patient's return to room. Objective Psychosocial Status: Willing and Cooperative to Participate Persons Present: None Home Living Type of Home: House Home Layout: Able to Live on Main Level w/Bedrm/Bathrm Access Bathroom Shower / Tub: Walk-in Shower Bathroom Toilet: Standard Prior Function Level Of [place]: Independent with ADLs and functional transfers; Independent [...] Patient Will Perform All ADL's: w/ Modified [place], w/ Good Judgment/ Safety Functional Transfer Goals Pt Will Perform All Functional Transfers: Modified Independent, w/ Good Judgment /Safety OT Discharge Recommendations OT Discharge Recommendations: Inpatient Setting Equipment Recommendations: Too early to be determined Therapist: JOSH Akhtar/April 2101 Date: 01/12/2018Anabel Mitchell APRN - 01/12/2018 [...] clipping (Dr. Mercer) Continue current care -- Kegael, Nimotop NA 134 PT/OT/HOOP MAKER HELPER MACHINE Pain controlled Appreciate Medicine recommendations Discharge planning -- rehab placement; CM/SW involved. Prophylaxis: A)GI: PPI B) Lines: None; PIV C) Urinary Catheter: No D) Antibiotic Usage: No E) VTE: Pharmacological prophylaxis; SQ Heparin and Mechanical prophylaxis; Sequential compression device F) Restraints: Patient assessed for need for restraints. Anabel Mitchell, EMS INSTRUCTOR 1981 Please call [phone] with any questions.Kenyatta Mathis RN - 01/12/2018 [...] home diabetes medication for discharge. Assessment/Plan #DM2 -[employer] on glyburide, metformin, A1C 6.7% -Started on Florinef on admission, worsening glucose tolerance secondary to decadron and Florinef -Florinef d/c'ed 01/08, metformin/glyburide restarted 01/10 PM -Fasting glucose 94 this AM, Accuchecks 114-212 -Continue [employer] glyburide and metformin, SSI #HTN -BPs 135-160/44-64 -Currently holding district captain spironolactone/HCTZ. -Continue methyldopa and nimodipine per primary team #SAH -S/p craniotomy and clipping -Keppra -Management per primary team Patient seen and discussed with Dr. Castro. We will continue to follow peripherally. Liban Acosta MD PGY-1 Internal Medicine Consult pager: [phone] History of Present Illness: Yarely Dillon is a 72 y.o. female. No acute events overnight. Florinefd/leeanna 01/08, [employer] metformin and glyburide restarted last night. No [...] Asaf, no children but 2 nephews in [place]. Perform all ADLs independently History reviewed. No [...] 1030) Temp: 36.8 C (98.3 F) (01/11 103) Pulse: 79 (01/11 1030) Respirations: 16 PER MINUTE (01/11 103) SpO2: 100 % (01/11 1030) O2 Delivery: [...] Liban Acosta MD Internal Medicine Consult pager: [phone] Associated attestation - Jason Castro MD - [...] name: Jason Castro MD Date: 01/11/2018 Maryjane TellesSUSSY - 01/11/2018 12:34 PM CSTFormatting of this [...] start to titrate, will decrease to BID PT/OT/HOOP MAKER HELPER MACHINE-Rehab is the overall recommendation, has very limited hands on support and consistent supervision. Dispo pending Rehab placement. Prophylaxis: A)GI: PPI B) Lines: None; PIV C) Urinary Catheter: No D) Antibiotic Usage: No E) VTE: Pharmacological prophylaxis; SQ Heparin and Mechanical prophylaxis; Sequential compression device F) Restraints: Patient assessed for need for restraints. Maryjane Telles, EMS INSTRUCTOR 2900 Please call [phone] with any questions.Mariah Hemphill, OT - 01/11/2018 11: 27 AM CSTFormatting of this note may be different from the original. OCCUPATIONAL THERAPY PROGRESS NOTE Patient Name: Yarely Dillon Room/Bed: [place] [address] Admitting Diagnosis: Ruptured Aneurysm Subarachnoid hemorrhage (HCC) [...] obtained with evidence of SAH, transferred to [facility] for management of traumatic vs aneurysmal [...] session, TABS alarm on. Activity Tolerance Endurance: 01/25 Tolerates 25-30 Minutes Exercise w/Multiple Rests Cognition [...] Patient Will Perform All ADL's: w/ Modified [place], w/ Good Judgment/ Safety Functional Transfer Goals [...] 01/11/2018 Stefanie Milton - 01/11/2018 8:07 AM [employer] CLINICAL NUTRITION Clinical Nutrition Follow-Up Summary Nutrition Assessment of Patient: Malnutrition Assessment: Does not meet criteria Current Oral Intake: Adequate Estimated Calorie Needs: 1635 (25 kcal/kg desired wt 65.4kg) Estimated Protein Needs: 78-85 (1.2-1.3 gm/kg desired wt 65.4kg) Oral Diet Order: Diabetic 8622-5928 Kcal/day (60 g Carb/meal, 30 g Carb/HS [...] Status: Met Rajani Milton RD, LD Pager: [phone] Inna Perkins MD - 01/10/2018 7:31 PM [...] clipping (Dr. Mercer) Continue current care -- Олег Ojeda SBP < 160 mmHg Na 135 -Na solution, PT/OT/HOOP MAKER HELPER MACHINE-making steady progress, will need consistent supervision at home. Continue to monitor for home vs rehab. PT TODAY Prophylaxis: A)GI: PPI B) Lines: None; PIV C) Urinary Catheter: No D) Antibiotic Usage: No E) VTE: Pharmacological prophylaxis; SQ Heparin and Mechanical prophylaxis; Sequential compression device F) Restraints: Patient assessed for need for restraints. Denzel Mi MD 5112 Please call [phone] with any questions.Denzel Mi MD - 01/09/2018 [...] < 160 mmHg Na 134 -Na solution, PT/OT/HOOP MAKER HELPER MACHINE-making steady progress, will need consistent supervision at home. Continue to monitor for home vs rehab. IRF vs home Prophylaxis: A)GI: PPI B) Lines: None; PIV C) Urinary Catheter: No D) Antibiotic Usage: No E) VTE: Pharmacological prophylaxis; SQ Heparin and Mechanical prophylaxis; Sequential compression device F) Restraints: Patient assessed for need for restraints. Denzel Mi MD 6957 Please call [phone] with any questions.Geoffrey Pantoja MD - 01/08/2018 [...] continue insulin for now and will restart district captain metformin and glyburide if florinef remains discontinued #. HTN - currently holding district captain spironolactone/HCTZ. - continue methyldopa and nimodipine [...] evening. 500ml IVF NS bolus this AM PT/OT/HOOP MAKER HELPER MACHINE-making steady progress, will need consistent supervision at home. Continue to monitor for home vs rehab. Floor status. Discharge first of next week. Prophylaxis: A)GI: PPI B) Lines: None; PIV C) Urinary Catheter: No D) Antibiotic Usage: No E) VTE: Pharmacological prophylaxis; SQ Heparin and Mechanical prophylaxis; Sequential compression device F) Restraints: Patient assessed for need for restraints. Maryjane Telles, SUSSY 2171 Please call [phone] with any questions.Sindy Baldwin, RN - 01/07/2018 11: 32 PM CSTPt not able to get comfortable at this time. Complains of 6 out of 10 back pain. Pt gotten up to thechair. Refusing any pain medication at this time. Will continue to monitor and offer routinely.Marion Kramer RD - 2017 4:41 PM [employer] CLINICAL NUTRITION Clinical Nutrition Follow-Up Summary Nutrition Assessment of Patient: Malnutrition Assessment: Does not meet criteria Current Oral Intake: Adequate Estimated Calorie Needs: 1635 (25 kcal/kg desired wt 65.4kg) Estimated Protein Needs: 78-85 (1.2-1.3 gm/kg desired wt 65.4kg) Oral Diet Order: Diabetic 5584-6608 Kcal/day (60 g Carb/meal, 30 g Carb/HS [...] Continue treatment 1-3x/week Therapist: Sylvia Antony M.A. CF-HOOP MAKER HELPER MACHINE Pager: [phone] Weekend Acute Pager: [phone] Date: 01/07/2018 Liliana Nobles, PT - 01/07/2018 [...] Na solution 1:1 NS replacement Daily TCDs PT/OT/HOOP MAKER HELPER MACHINE Discharge planning -- Floor today; rehab consult pending Prophylaxis: A)GI: PPI B) Lines: None; PIV C) Urinary Catheter: No D) Antibiotic Usage: No E) VTE: Pharmacological prophylaxis; SQ Heparin and Mechanical prophylaxis; Sequential compression device F) Restraints: Patient assessed for need for restraints. Tobias Chapman MD 5501 Please call [phone] with any questions.Nereida Garner APRN - 2017 6:23 AM CSTFormatting of this note may be different from the original. Neuro Critical Care Progress Note Yarely Wilma Admission Date: 12/29/2017 LOS: 9 days Full [...] obtained with evidence of SAH, transferred to [facility] for management. AComm aneurysm clipped in OR on 12/29. Hospital and ICU course: 12/29: Transfer from [place], [place] with SAH. Neurologically intact. S/p craniotomy [...] TCDs daily - melatonin 3mg qHS - PT/OT/HOOP MAKER HELPER MACHINE for cognitive eval - Neuro-ICU monitoring, neurochecks q 2 hrs Sedation, pain - No [employer] 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 - PRN oxycodone, tylenol available - Monitor for delirium- neuro checks to Q2H and scheduled melatonin qHS Cardiac Hx HTN - Holding [employer] spironolactone/HCTZ 25-25mg QD - Continue [employer] Methyldopa 250 mg BID - Prn labetalol, [...] DM, hyperglycemia - A1C 6.7% - Holding [employer] metformin-glyburide 2.5-500 1 tab BID - Blood [...] the octopuses off the floor" on the [employer]. OBJECTIVE Vital Signs: Last Filed Vital Signs: [...] procedures reviewed. Nereida Garner, SUSSY Date: 01/07/[phone] Jermaine Chua MD - [...] obtained with evidence of SAH, transferred to [facility] for management. AComm aneurysm clipped in OR on 12/29. Hospital and ICU course: 12/29: Transfer from [place], [place] with SAH. Neurologically intact. S/p craniotomy [...] daily - Started melatonin 3mg qHS - PT/OT/HOOP MAKER HELPER MACHINE for cognitive eval - Neuro-ICU monitoring, neurochecks q 2 hrs Sedation, pain - No [employer] 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 - PRN oxycodone, tylenol available - Monitor for delirium- neuro checks to Q2H and scheduled melatonin qHS Cardiac Hx HTN - Holding [employer] spironolactone/HCTZ 25-25mg QD - Continue [employer] Methyldopa 250 mg BID - Prn labetalol, [...] DM, hyperglycemia - A1C 6.7% - Holding [employer] metformin-glyburide 2.5-500 1 tab BID - Blood [...] (225 lb 1.4 oz), SpO2 100 %. [place] coma score: E: 4 - opens eyes [...] (Last 24 hours) Glucose: (!) 136 (01/06/18 031) POC Glucose (Download): (!) 157 (01/06/182203) Lab [...] consulted teams Jermaine Chua MD Date: 01/06/[phone] Liliana Nobles, PT - 01/06/2018 10:29 AM [...] clipping (Dr. Mercer) Continue current care --Keppra, Amarilysotop SBP < 180 mmHg Na 134 - florinef, Na solution 1:1 NS replacement Daily TCDs PT/OT/HOOP MAKER HELPER MACHINE Discharge planning -- anticipate floor status tomorrow; rehab consult pending Prophylaxis: A)GI: PPI B) Lines: None; PIV C) Urinary Catheter: No D) Antibiotic Usage: No E) VTE: Pharmacological prophylaxis; SQ Heparin and Mechanical prophylaxis; Sequential compression device F) Restraints: Patient assessed for need for restraints. Anabel Mitchell, EMS INSTRUCTOR 1231 Please call [phone] with any questions.Nereida Garner, SUSSY - 2017 [...] obtained with evidence of SAH, transferred to [facility] for management. AComm aneurysm clipped in OR on 12/29. Hospital and ICU course: 12/29: Transfer from [place], [place] with SAH. Neurologically intact. S/p craniotomy [...] daily - Started melatonin 3mg qHS - PT/OT/HOOP MAKER HELPER MACHINE for cognitive eval - Neuro-ICU monitoring, neurochecks q 2 hrs Sedation, pain - No [employer] 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 - PRN oxycodone, tylenol available - Monitor for delirium- neuro checks to Q2H and scheduled melatonin qHS Cardiac Hx HTN - Holding [employer] spironolactone/HCTZ 25-25mg QD - Continue [employer] Methyldopa 250 mg BID - Prn labetalol, [...] DM, hyperglycemia - A1C 6.7% - Holding [employer] metformin-glyburide 2.5-500 1 tab BID - Blood [...] need for restraints. Disposition/Family:NEICU monitoring Primary service: [facility] Consults:Neurosurgery SUBJECTIVE Yarely Dillon is a [...] (Manual): (!) 155 (01/05/182157) Glucose: (!) 136 (01/06/184) POC Glucose (Download): (!) 155 (01/05/18 0306) Lab Review: Pertinent labs reviewed Radiology and [...] consulted teams Nereida Garner, SUSSY Date: 01/06/[phone] Liliana Nobles, PT - 01/05/2018 1:23 PM [id number] THERAPY PROGRESS NOTE MOBILITY: Mobility Progressive Mobility [...] obtained with evidence of SAH, transferred to [facility] for management. AComm aneurysm clipped in OR on 12/29. Hospital and ICU course: 12/29: Transfer from [place], [place] with SAH. Neurologically intact. S/p craniotomy [...] sutures - Started melatonin 3mg qHS - PT/OT/HOOP MAKER HELPER MACHINE for cognitive eval - Neuro-ICU monitoring, neurochecks q 2 hrs Sedation, pain - No [employer] 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 - PRN oxycodone, tylenol available - Monitor for delirium- neuro checks to Q2H and scheduled melatonin qHS - Risperdal 0.5 mg once overnight Cardiac Hx HTN - Holding [employer] spironolactone/HCTZ 25-25mg QD - Continue [employer] Methyldopa 250 mg BID - Prn labetalol, [...] DM, hyperglycemia - A1C 6.7% - Holding [employer] metformin-glyburide 2.5-500 1 tab BID - Blood [...] need for restraints. Disposition/Family:NEICU monitoring Primary service: [facility] Consults:Neurosurgery SUBJECTIVE Yarely Dillon is a [...] (226 lb 10.1 oz), SpO2 98 %. [place] coma score: E: 4 - opens eyes [...] procedures reviewed. Jermaine Chua MD Date: 01/05/[phone] Denzel Mi MD - 01/05/2018 6:38 AM [...] Mercer) Rusty, Amarilysotop SBP < 180 TCD 2.5 / 1.7 [...] for restraints. Denzel Mi MD Please call [phone] with any questions.DasilvaRobertrubens Qureshi, EMS INSTRUCTOR - 01/05/2018 6:06 AM CSTFormatting of this [...] obtained with evidence of SAH, transferred to [facility] for management. AComm aneurysm clipped in OR on 12/29. Hospital and ICU course: 12/29: Transfer from [place], [place] with SAH. Neurologically intact. S/p craniotomy [...] sutures - Started melatonin 3mg qHS - PT/OT/HOOP MAKER HELPER MACHINE for cognitive eval - Neuro-ICU monitoring, neurochecks q 2 hrs Sedation, pain - No [employer] 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 - PRN oxycodone, tylenol available - Monitor for delirium- neuro checks to Q2H and scheduled melatonin qHS - Risperdal 0.5 mg once overnight Cardiac Hx HTN - Holding [employer] spironolactone/HCTZ 25-25mg QD - Continue [employer] Methyldopa 250 mg BID - Prn labetalol, [...] DM, hyperglycemia - A1C 6.7% - Holding [employer] metformin-glyburide 2.5-500 1 tab BID - Blood [...] (226 lb 10.1 oz), SpO2 97 %. [place] coma score: E: 4 - opens eyes [...] of care with consulted teams Jazzy Dasilva, EMS INSTRUCTOR Date: 01/05/[phone] Anna Hernandez, PT - 01/04/2018 3:23 PM CSTPHYSICAL THERAPY NOTE Patient declined to participate despite encouragement and education about the role and benefits of physical therapy due to fatigue. Physical therapy will continue to follow and provide intervention asindicated. Therapist: Anna Hernanedz, PT Date: 01/04/2018 Stefanie Mitlon - 01/04/2018 2:28 PM [employer] CLINICAL NUTRITION Clinical Nutrition Assessment Summary Nutrition Assessment of Patient: BMI Categories Adult: Obesity Class II: 35-39.9 (36.61) Malnutrition Assessment: Does not meet criteria Current Oral Intake: Inadequate Estimated Calorie Needs: 1635 (25 kcal/kg desired wt 65.4kg) Estimated Protein Needs: 78-85 (1.2-1.3 gm/kg desired wt 65.4kg) Oral Diet Order: Diabetic 2043-0033 Kcal/day (60 g Carb/meal, 30 g Carb/HS [...] to provide subjective information. Pt reports that [employer] she was eating well and her weight [...] Throughout Stay Rajani Milton RD, LD Pager: [phone] Sylvia Antony - 01/04/2018 2:22 PM CSTSPEECH-LANGUAGE [...] Continue treatment 1-3x/week Therapist: Sylvia Antony M.A. CF-HOOP MAKER HELPER MACHINE Pager: [phone] Weekend Acute Pager: [phone] Date: 01/04/2018 Mariah Hemphill, OT - 01/04/2018 1:10 PM CSTOCCUPATIONAL THERAPY NO TREATMENT NOTE Attempted to see patient however patient declined. Provided support and encouragement however patient continued to state "No" with her eyes closed and pulled her blankets up over her. Will follow andprovide OT intervention as indicated. Therapist: Mariah Hemphill, OTR/L 0271 Date: 01/04/2018Stephanie Chau M.Div, [facility] - 01/04/2018 11:16 AM CSTReason for Visit: Rounding Noemi/Hindu: The patient is Lutheran and does not belong to a specific synagogue. Worries/Concerns/Struggles: Right now, she really wants to go home. Method(s) of Coping: She said she likes to "keep living and doing the things she does." Support System: Her , brother, and two nephews are her strongest support. Interventions/Plan: The competitive intelligence manager assessed the patient. Jermaine Chua MD - [...] obtained with evidence of SAH, transferred to [facility] for management. AComm aneurysm clipped in OR on 12/29. Hospital and ICU course: 12/29: Transfer from [place], [place] with SAH. Neurologically intact. S/p craniotomy [...] sutures - Started melatonin 3mg qHS - PT/OT/HOOP MAKER HELPER MACHINE for cognitive eval - Neuro-ICU monitoring, neurochecks q 2 hrs Sedation, pain - No [employer] 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 - PRN oxycodone, tylenol available - Monitor for delirium- will decrease neuro checks to Q2H and scheduled melatonin qHS Cardiac Hx HTN - Holding [employer] spironolactone/HCTZ 25-25mg QD - Continue [employer] Methyldopa 250 mg BID - Prn labetalol, hydralazine for BP goal - SBP goal <170, MAP goal >65 Respiratory: - No acute issues, on RA - Spo2 goal >92% GI - Diabetic diet, will monitor PO intake, Boost shakes BID - Continue calorie count - Bowel regimen, ensure daily BM. Suppository prn - Last BM 2/12 Heme: Anemia, likely secondary to blood loss [...] Hx DM - A1C 6.7% - Holding [employer] metformin-glyburide 2.5-500 1 tab BID - Blood [...] for restraints. Disposition/Family: NEICU monitoring Primary service: [facility] Consults: Neurosurgery SUBJECTIVE Yarely Dillon is a 72 y.o. female. Overnight Events: No new events noted. OBJECTIVE Vital Signs: Last Filed Vital Signs: 24 Hour Range BP: 168/59 (01/04 900) Temp: 37.3 C (99.1 F) (01/04 0800) [...] (Last 24 hours) Glucose: (!) 157 (01/04/18 1605) POC Glucose (Download): (!) 153 (01/04/18 6657) Lab Review: Pertinent labs reviewed Radiology and Other Diagnostic Procedures Review: Pertinent radiologic and diagnostic procedures reviewed. Jermaine Chua MD Date: 01/04/[phone] Tobias Chapman MD - 01/04/2018 6:32 AM [...] for restraints. Tobias Chapman MD Please call [phone] with any questions. Jazzy Dasilva APRN - [...] obtained with evidence of SAH, transferred to [facility] for management. AComm aneurysm clipped in OR on 12/29. Hospital and ICU course: 12/29: Transfer from [place], [place] with SAH. Neurologically intact. S/p craniotomy [...] sutures - Started melatonin 3mg qHS - PT/OT/HOOP MAKER HELPER MACHINE for cognitive eval - Neuro-ICU monitoring, neurochecks q 2 hrs Sedation, pain - No [employer] 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 - PRN oxycodone, tylenol available - Monitor for delirium- will decrease neuro checks to Q2H and scheduled melatonin qHS Cardiac Hx HTN - Holding [employer] MANAG[employer] spironolactone/HCTZ 25-25mg QD - Continue [employer] Methyldopa 250 mg BID - Prn labetalol, [...] Hx DM - A1C 6.7% - Holding [employer]NA[employer] metformin-glyburide 2.5-500 1 tab BID - Blood [...] for restraints. Disposition/Family: NEICU monitoring Primary service: [facility] Consults: Neurosurgery SUBJECTIVE Yarely Wilma is a 72 y.o. female. Overnight Events: No new events noted. OBJECTIVE Vital Signs: Last Filed Vital Signs: 24 Hour Range BP: 149/41 (01/04 0500) Temp: 36.8 C (98.2 F) (01/04 0400) Pulse: 58 (01/04 0500) Respirations: 16 PER MINUTE (01/04 050) SpO2: 95 % (01/04 500) O2 Delivery: [...] (220 lb 0.3 oz), SpO2 95 %. [place] coma score: E: 3 - Opens eyes [...] of care with consulted teams Jazzy Dasilva, EMS INSTRUCTOR Date: 01/04/[phone] Rory Edge RN - 01/03/2018 6:05 PM [...] for restraints. Tiffanie Louie MD Please call [phone] with any questions. Risa Jonas MD - [...] obtained with evidence of SAH, transferred to [facility] for management of traumatic vs aneurysmal SAH. Hospital and ICU course: 12/29: Transfer from [place], [place] with SAH. Neurologically intact. S/p craniotomy [...] sutures - Started melatonin 3mg qHS - PT/OT/HOOP MAKER HELPER MACHINE for cognitive eval - Neuro-ICU monitoring, neurochecks q 2 hrs, parameters for Prevention of secondary brain injury(avoid hypotension, hypoxia, fever, hyperglycemia, significant anemia, diagnose and treatment of seizures,electrolyte abnormalities ) Sedation, pain - No [employer] 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 - PRN oxycodone, tylenol available - Monitor for delirium- will decrease neuro checks to Q2H (okay with NSG) and schedule melatonin qHS Cardiac Hx HTN - Holding [employer]NAG[employer] spironolactone/HCTZ 25-25mg QD - Continue [employer] Methyldopa 250 mg BID - Prn labetalol, [...] Hx DM - A1C 6.7% - Holding [employer]NA[employer] metformin-glyburide 2.5-500 1 tab BID - Blood [...] discussed with Dr. Candice Jonas MD Pager [phone] SUBJECTIVE Yarely Dillon is a 72 y.o. [...] bisacodyl QDAY PRN, calcium gluconate IVPB PRN (Drier Take Off Tender from Rx) AND Ionized Calcium PRN AND Notify Physician Ongoing, hydrALAZINE Q6H PRN, labetalol (NORMODYNE; TRANDATE) injection Q15 MIN PRN, magnesium sulfate PRN AND Magnesium PRN AND Notify Physician Ongoing, ondansetron (ZOFRAN) IV Q6H PRN, oxyCODONE Q4H PRN, potassium chloride SR PRN OR potassium chloride PRN, sodium phosphate IVPB PRN (Drier Take Off Tender from Rx) AND Phosphorus PRN AND* * Notify Physician Ongoing Review of Systems: See subjective OBJECTIVE Vital Signs: Last Filed Vital Signs: Last 24 Hours BP: 157/106 (01/03 400) Temp: 37.2 C (99 F) (01/03 0000) Pulse: 76 (01/03 040) Respirations: 12 PER MINUTE (01/03 400) SpO2: 99 % (02/11 0400) O2 Delivery: None (Room Air) (01/03 0400) BP: (107-176)/(40-117) Temp: [36.6 C (97.8 F)-37.2 [...] obtained with evidence of SAH, transferred to [facility] for management of traumatic vs aneurysmal SAH. Hospital and ICU course: 12/29: Transfer from [place], [place] with SAH. Neurologically intact. S/p craniotomy [...] for post-op ppx - TCDs daily - PT/OT/HOOP MAKER HELPER MACHINE for cognitive eval - Requiring mittens, restraint, CO for impulsivity due to pulling at surgical sutures - Neuro-ICU monitoring, neurochecks q 1 hrs, parameters for Prevention of secondary brain injury(avoid hypotension, hypoxia, fever, hyperglycemia, significant anemia, diagnose and treatment of seizures,electrolyte abnormalities ) Sedation, pain - No [employer] 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 - PRN oxycodone, tylenol available - Monitor for delirium Cardiac Hx HTN - Holding [employer] spironolactone/HCTZ 25-25mg QD - Continue [employer] Methyldopa 250 mg BID - Prn labetalol, [...] ID: - Afebrile, leukocytosis resolved - UA 2 no s/o infection - Aim for normothermia, [...] Hx DM - A1C 6.7% - Holding [employer] metformin-glyburide 2.5-500 1 tab BID - Blood [...] bisacodyl QDAY PRN, calcium gluconate IVPB PRN (Drier Take Off Tender from Rx) AND Ionized Calcium PRN AND Notify Physician Ongoing, hydrALAZINE Q6H PRN, labetalol (NORMODYNE; TRANDATE) injection Q15 MIN PRN, magnesium sulfate PRN AND Magnesium PRN AND Notify Physician Ongoing, ondansetron (ZOFRAN) IV Q6H PRN, oxyCODONE Q4H PRN, potassium chloride SR PRN OR potassium chloride PRN, sodium phosphate IVPB PRN (Drier Take Off Tender from Rx) AND Phosphorus PRN AND* * [...] for restraints. Tiffanie Louie MD Please call [phone] with any questions. Brittney Cartwright, RN - [...] Continue treatment 1-3x/week Therapist: Sylvia Antony M.A. CF-HOOP MAKER HELPER MACHINE Pager: [phone] Weekend Acute Pager: [phone] Date: 01/01/2018 Mariah Hemphill OT - 01/01/2018 10:18 AM CSTFormatting of this note may be different from the original. OCCUPATIONAL THERAPY PROGRESS NOTE Patient Name: Yarely Dillon Room/Bed: [place] [address] Admitting Diagnosis: Ruptured Aneurysm Subarachnoid hemorrhage (HCC) [...] obtained with evidence of SAH, transferred to [facility] for management of traumatic vs aneurysmal [...] Patient Will Perform All ADL's: w/ Modified [place], w/ Good Judgment/ Safety Functional Transfer Goals Pt Will Perform All Functional Transfers: Modified Independent, w/ Good Judgment /Safety OT Discharge Recommendations OT Discharge Recommendations: Inpatient Setting, Vs, Home with family assist ( dependent on patient hospital course and progress) Equipment Recommendations: Too early to be determined Therapist: Mariah Hemphill, JOSSELINR/April 0271 Date: 01/01/2018Liliana Nobles, PT - 01/01/2018 [...] TCD 01/01 reviewed Left 1.7, Right 1.3 2/7 CTA without residual acomm, small < 5mm [...] for restraints. Ronda Kulkarni APRN Please call [phone] with any questions. Risa Jonas MD - [...] obtained with evidence of SAH, transferred to [facility] for management of traumatic vs aneurysmal SAH. Hospital and ICU course: 12/29: Transfer from [place], [place] with SAH. Neurologically intact. S/p craniotomy [...] for post-op ppx - TCDs daily - PT/OT/HOOP MAKER HELPER MACHINE for cognitive eval - Neuro-ICU monitoring, neurochecks q 1 hrs, parameters for Prevention of secondary brain injury(avoid hypotension, hypoxia, fever, hyperglycemia, significant anemia, diagnose and treatment of seizures,electrolyte abnormalities ) Sedation, pain - No [employer] 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 - PRN Fentanyl, oxycodone, tylenol available - Monitor for delirium Cardiac Hx HTN - Holding [employer] spironolactone/HCTZ 25-25mg QD - Continue [employer] Methyldopa 250 mg BID - Prn labetalol, [...] Hx DM - A1C 6.7% - Holding [employer]NA[employer] metformin-glyburide 2.5-500 1 tab BID - Blood [...] and discussed with Dr. Candice Jonas Pager [phone] SUBJECTIVE Yarely Dillon is a 72 y.o. [...] bisacodyl QDAY PRN, calcium gluconate IVPB PRN (Drier Take Off Tender from Rx) AND Ionized Calcium PRN AND Notify Physician Ongoing, hydrALAZINE Q6H PRN, labetalol (NORMODYNE; TRANDATE) injection Q15 MIN PRN, magnesium sulfate PRN AND Magnesium PRN AND Notify Physician Ongoing, ondansetron (ZOFRAN) IV Q6H PRN, oxyCODONE Q4H PRN, potassium chloride SR PRN OR potassium chloride PRN, sodium phosphate IVPB PRN (Drier Take Off Tender from Rx) AND Phosphorus PRN AND* * [...] Range Color,UA YELLOW Turbidity,UA CLEAR CLEAR-CLEAR Specific [place]-Urine 1.027 1.003 - 1.035 pH,UA 6.0 5.0 [...] Staff name: Ana Harvey MD Date: 01/01/2018 Alton Fallonen - 12/31/2017 4:32 PM CSTSPEECH-LANGUAGE PATHOLOGY DAILY [...] pt must be fully alert Therapist: Yenny LANE/HOOP MAKER HELPER MACHINE Pager:[phone] Office:[phone] Date: 12/31/2017 Liliana Nobles, PT - 12/31/2017 [...] for need for restraints. Tobias Chapman MD [id number] Please call [phone] with any questions. Risa Jonas MD - [...] obtained with evidence of SAH, transferred to [facility] for management of traumatic vs aneurysmal SAH. Hospital and ICU course: 12/29: Transfer from [place], [place] with SAH. Neurologically intact. S/p craniotomy [...] for post-op ppx - TCDs daily - PT/OT/HOOP MAKER HELPER MACHINE for cognitive eval - Neuro-ICU monitoring, neurochecks q 1 hrs, parameters for Prevention of secondary brain injury(avoid hypotension, hypoxia, fever, hyperglycemia, significant anemia, diagnose and treatment of seizures,electrolyte abnormalities ) Sedation, pain - No [employer] 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 - PRN Fentanyl, oxycodone, tylenol available - Monitor for delirium Cardiac Hx HTN - Holding [employer]NA[employer] spironolactone/HCTZ 25-25mg QD - Continue [employer]NA[employer] Methyldopa 250 mg BID - Prn labetalol, [...] Hx DM - A1C 6.7% - Holding [employer]NA[employer] metformin-glyburide 2.5-500 1 tab BID - Blood [...] and discussed with Dr. Candice Jonas Pager [phone] SUBJECTIVE Yarely Dillon is a 72 y.o. [...] bisacodyl QDAY PRN, calcium gluconate IVPB PRN (Drier Take Off Tender from Rx) AND Ionized Calcium PRN AND Notify Physician Ongoing, fentaNYL citrate PF Q1H PRN, hydrALAZINE Q6H PRN, labetalol (NORMODYNE; TRANDATE) injection Q15 MIN PRN , magnesium sulfate PRN AND Magnesium PRN AND Notify Physician Ongoing, ondansetron (ZOFRAN) IV Q6H PRN, oxyCODONE Q4H PRN, potassium chloride SR PRN OR potassium chloride PRN, sodium phosphate IVPB PRN (Drier Take Off Tender from Rx) AND* * Phosphorus PRN AND Notify Physician Ongoing Review of Systems: See subjective OBJECTIVE Vital Signs: Last Filed Vital Signs: Last 24 Hours BP: 134/112 (12/31 0500) Temp: 36.8 C (98.2 F) (12/31 0000) Pulse: 71 (12/31 599) Respirations: 21 PER MINUTE (12/31 599) SpO2: 96 % (12/31 599) O2 Delivery: None (Room Air) (12/31 599) Height: 165.1 cm (65") (12/30 1499) Weight: 99.8 kg (220 lb 0.3 oz) (02/07 1500) BP: (107-150)/(33-121) Temp: [36.8 C (98.2 [...] 12/31/2017 1:15 AM CSTSpoke with NEICU team java application developer regarding pt urinating frequently throughout night. Pt velázquez removed at 1100 yesterday and pt has not had any post void residuals since removal. Pt is consistently voidingevery hour and between 6015-9535 pt voided 3 separate times. Post void residual after 2nd void within one hour=11. Pt without symptoms of urgency or pain while voiding. Pt also without fever or suprapubic pain. Per NEICU no new orders at this time, but will consider ordering a UA if pt has a fever or develops other symptoms of a UTI. Will continue to monitor. Deidra Roberts - 12/30/2017 1:45 PM CSTSPEECH-LANGUAGE PATHOLOGY CLINICAL [...] obtained with evidence of SAH, transferred to [facility] for management of traumatic vs aneurysmalSAH. [...] cues to maintain attention. Therapist:Deidra Roberts MA, L/CCC-HOOP MAKER HELPER MACHINE [id number] Date:12/30/2017 Chantal Matute RN - 12/30/2017 1:07 PM CSTNoted patient to be clearing throat after sipping water with 1200 medications. Notified Neuro ICU and asked for speech swallow eval, order entered and HOOP MAKER HELPER MACHINE at bedside.Mariah Hemphill, OT - 12/30/2017 10:58 AM CSTFormatting of this note may be different from the original. OCCUPATIONAL THERAPY ASSESSMENT NOTE Patient Name: Yarely Dillon Room/Bed: [place] [address] Admitting Diagnosis: Ruptured Aneurysm Subarachnoid hemorrhage (HCC) [...] obtained with evidence of SAH, transferred to [facility] for management of traumatic vs aneurysmal [...] Bathroom Toilet: Standard Prior Function Level Of [place]: Independent with ADLs and functional transfers; Independent [...] Patient Will Perform All ADL's: w/ Modified [place], w/ Good Judgment/ Safety Functional Transfer Goals [...] for need for restraints. Tobias Chapman MD [id number] Please call [phone] with any questions. Risa Jonas MD - [...] obtained with evidence of SAH, transferred to [facility] for management of traumatic vs aneurysmal SAH. Hospital and ICU course: 12/29: Transfer from [place], [place] with SAH. Neurologically intact. S/p craniotomy [...] Goal : 135-145 - TCDs daily - PT/OT/HOOP MAKER HELPER MACHINE for cognitive eval - Neuro-ICU monitoring, neurochecks q 1 hrs, parameters for Prevention of secondary brain injury(avoid hypotension, hypoxia, fever, hyperglycemia, significant anemia, diagnose and treatment of seizures,electrolyte abnormalities ) Sedation, pain - No [employer] 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 - PRN Fentanyl, oxycodone, tylenol available - Pt was disoriented overnight 12/29, required soft restraints briefly Cardiac Hx HTN - SU[employer]NA[employer] spironolactone/HCTZ 25-25mg QD - Restart [employer] Methyldopa 250 mg BID - Prn labetalol, [...] Hx DM - A1C 6.7% - Holding [employer]NA[employer] metformin-glyburide 2.5-500 1 tab BID - Blood glucose goal 100-180mg/dl - Insulin gtt intra-op and overnight (23 units in 12 hours) - D/c insulin drip, will start [facility] FEN: - Diabetic diet - Finish [...] and discussed with Dr. Candice Jonas Pager [phone] SUBJECTIVE Yarely Dillon is a 72 y.o. [...] acetaminophen Q4H PRN, calcium gluconate IVPB PRN (Drier Take Off Tender from Rx) AND Ionized Calcium PRN AND* * Notify Physician Ongoing, fentaNYL citrate PF Q1H PRN, hydrALAZINE Q6H PRN, labetalol (NORMODYNE; TRANDATE) injection Q15 MIN PRN, magnesium sulfate PRN AND Magnesium PRN AND Notify Physician Ongoing, ondansetron (ZOFRAN) IV Q6H PRN, oxyCODONE Q4H PRN, potassium chloride SR PRN OR potassium chloride PRN, sodium phosphate IVPB PRN (Drier Take Off Tender from Rx) AND Phosphorus PRN AND* * Notify Physician Ongoing Review of Systems: See subjective OBJECTIVE Vital Signs: Last Filed Vital Signs: Last 24 Hours BP: 152/32 (12/30 0500) ABP: 99/50 (12/30 0100) Temp: 37 C (98.6 F) (12/30 0400) Pulse: 97 (12/30 0500) Respirations: 20 PER MINUTE (12/30 050) SpO2: 95 % (12/30 499) O2 Delivery: None (Room Air) (12/30 599) [...] Screen NEG Electronic Crossmatch YES Unit Number [id number] Blood Component Type RBC,ADSOL,LEUKO REDUCED Unit Division 0 Status OF Unit REL FROM ALLOC Transfusion Status OK TO TRANSFUSE Crossmatch Result COMPATIBLE,ELECTRONIC Unit Number [id number] Blood Component Type RBC,ADSOL,LEUKO REDUCED,2ND CONT. Unit [...] Sat-Arterial 99.3 (H) 95 - 99 % Iozdwbsirgz-DJH-Sml 20.5 (L) 21 - 28 MMOL/L BLOOD [...] Sat-Arterial 99.6 (H) 95 - 99 % Kbchvxsolzb-SBH-Wne 19.6 (L) 21 - 28 MMOL/L IONIZED [...] Portillo RN - 12/30/2017 3:21 AM CSTDr. Jeovany with ICU notified that [facility] No new orders at this time. Will [...] at shift change, will pass along to production shift supervisor to continueto reassess patient for swallow [...] anesthesia consent obtained and inside.Ana María Gleason, RT - 12/29/2017 6:27 AM CSTFormatting of [...] Date: 12/29/2017 [place] AC=Airway clearance AM=Aerosolized medication BA=[place] aerosol DB&C=Deep breathe & cough FEV1=Forced expiratory volume in first second) IC=Inspiratory capacity LE=Lung expansion MDI=Metered dose inhaler Neb=Nebulizer O2=Oxygen Oxim=Oximetry PEFR=Peak expiratory flow rate RETORT LOAD EXPEDITER=Rapid Response Team Dejah Portillo RN - 12/29/2017 [...] in this encounter H&P Notes Yenny Narvaez, MSN,EMS INSTRUCTOR - 12/29/2017 8:28 AM CSTFormatting of this [...] acetaminophen Q4H PRN, calcium gluconate IVPB PRN (Drier Take Off Tender from Rx) AND Ionized Calcium PRN AND* * Notify Physician Ongoing, fentaNYL citrate PF Q1H PRN, hydrALAZINE Q6H PRN, labetalol (NORMODYNE; TRANDATE) injection Q15 MIN PRN, magnesium sulfate PRN AND Magnesium PRN AND Notify Physician Ongoing, ondansetron (ZOFRAN) IV Q6H PRN, oxyCODONE Q4H PRN, potassium chloride SR PRN OR potassium chloride PRN, sodium phosphate IVPB PRN (Drier Take Off Tender from Rx) AND Phosphorus PRN AND* * [...] previous H&P performed on 12/29/17. Yenny Narvaez, MSN,EMS INSTRUCTOR Pager [phone] Nata Thayer, DO - 12/29/2017 3:13 AM [...] obtained with evidence of SAH, transferred to [facility] for management of traumatic vs aneurysmal SAH. Patient Active Problem List Diagnosis Diabetes (HCC) Hypertension Subarachnoid hemorrhage (HCC) Parkinson's disease (HCC) Hospital and ICU course: 01/01: Transfer from [place], [place] with SAH. Neurologically intact. Neuro: Subarachnoid [...] electrolyte abnormalities) Sedation, pain: No - No SU[employer]NAGING 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 Fentanyl, oxycodone, tylenol Assess for delirium daily Cardiac: Hx HTN - SUPER[employer]OR [employer]ODUCTION MANAGING spironolactone/HCTZ 25-25mg QD - SUPER[employer]NAGING Methyldopa 1 tab BID - Prn labetalol, [...] over 24 hrs Endocrine: Hx DM - SU[employer]NAGING metformin-glyburide 2.5-500 1 tab BID - A1C [...] for need for restraints. Disposition/Family: Admit to [facility] Primary service: NCC Consults: Neurosurgery __ SUBJECTIVE [...] head obtained with evidence of SAH,transferred to [facility] for management of traumatic vs aneurysmal SAH. Past Medical History: Diagnosis Date DM (diabetes mellitus) (HCC) HTN (hypertension) Past Surgical History: Procedure Laterality Date HX TONSILLECTOMY Family history reviewed; non-contributory Social History: Lives with Asaf, no children but 2 nephews in [place]. Perform all ADLs independently Code Status: Full [...] acetaminophen Q4H PRN, calcium gluconate IVPB PRN (Drier Take Off Tender from Rx) AND Ionized Calcium PRN AND* * Notify Physician Ongoing, fentaNYL citrate PF Q1H PRN, hydrALAZINE Q6H PRN, labetalol (NORMODYNE; TRANDATE) injection Q15 MIN PRN, magnesium sulfate PRN AND Magnesium PRN AND Notify Physician Ongoing, ondansetron (ZOFRAN) IV Q6H PRN, oxyCODONE Q4H PRN, potassium chloride SR PRN OR potassium chloride PRN, sodium phosphate IVPB PRN (Drier Take Off Tender from Rx) AND Phosphorus PRN AND* * [...] present - Gag reflex: present EOM: intact [place] coma score: E: 4 M: 6 V: [...] continue insulin for now and will restart district captain metformin and glyburide when able to wean off corticosteroids. #. HTN - currently holding district captain spironolactone/HCTZ. - continue methyldopa and nimodipine [...] Staff name: Mikayla Wilkerson MD Date: 01/07/2018 [facility] ServicesRuben MD - 01/06/2018 8:54 AM CSTAssociated Order(s): CONSULT REHABILITATION MEDICINE PHYSICIANFormatting of this note may be different from the original. Physical Medicine & Rehabilitation Consult Note Date of Service: 01/06/2018 Yarely Dillon is a 72 y.o. female. : 1945 Primary Insurance: MEDICARE Secondary Insurance: [facility] Tertiary Insurance: Financial Class: Medicare Date of Admission: 12/29/2017 Referring Physician: Oumar Mercer MD Reason for Consult: evaluate for Post-Acute Rehab/Placement Precautions: Fall, Weight bearing Precautions: Progressive mobility Active Problems Subarachnoid Hemorrhage Acomm aneurysm s/p clipping Pcomm aneurysm Impaired ADLs Gait abnormality Assessment & Plan Yarely Dillon is a 72 y.o. female admitted to [facility] on 12/29/2017 with the following issues: [...] 3 therapeutic disciplines, including PT, OT, and HOOP MAKER HELPER MACHINE. This will need to be determined prior to considering admission to acute inpatient rehabilitation. Rehab: Patient with deficits in bed mobility, transfers, gait, ambulation, self- cares and ADLs. Has been working with OT and PT and has continued goals with both disciplines. Differences between acute and subacute/SNF and qualifications for each one were explained to patient. Recommendations: Cognition: HOOP MAKER HELPER MACHINE following cognitive deficits and recommending consistent supervision [...] discharge. Ruben Hernández MD Rehab Consult Pager: [phone] History of Present Illness CC: L sided weakness Hospital Course: Yarely Dillon is a 72 y.o. 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 Mercer. Also has Pcomm aneurysm. Hospital course has been complicated by AMS and agitation requiring restraints and CO. She is getting near daily TCDs monitoring for vasospasm. PT/OT/HOOP MAKER HELPER MACHINE consulted for therapies and rehab has been [...] bisacodyl QDAY PRN, calcium gluconate IVPB PRN (Drier Take Off Tender from Rx) AND Ionized Calcium PRN AND Notify Physician Ongoing, hydrALAZINE Q6H PRN, labetalol (NORMODYNE; TRANDATE) injection Q15 MIN PRN, magnesium sulfate PRN AND Magnesium PRN AND Notify Physician Ongoing, ondansetron (ZOFRAN) IV Q6H PRN, oxyCODONE Q4H PRN, potassium chlorideSR PRN OR potassium chloride PRN, sodium phosphate IVPB PRN (Drier Take Off Tender from Rx) AND Phosphorus PRN AND Notify Physician Ongoing Allergies: Allergies Allergen Reactions Codeine UNKNOWN Penicillins UNKNOWN Prior Level of Function Lives in [place], [place] with her in a house. She [...] at end of session, TABS alarm on. HOOP MAKER HELPER MACHINE COGNITIVE EVALUATION SUMMARY PRAGMATICS: BEHAVIOR: AUDITORY COMPREHENSION: [...] (01/06 0700) O2 Delivery: None (Room Air) (02/14 0700) SpO2 Pulse: 60 (01/06 0700) Body mass index is 37.46 kg/m. Gen: [...] 11:00 AM ) Oral Diet Order: Diabetic 9713-5117 Kcal/day (60 g Carb/meal, 30 g Carb/HS [...] she experienced SAH. She was admitted to [facility] and co-managed by [facility] team, with noted AComm aneurysm on [...] and mayhave goals with PT, OT, and HOOP MAKER HELPER MACHINE for short acute inpatient rehabilitation stay. Again, determinationfor inpatient needs are contingent on discharge readiness, but in the meantime, we recommend continued therapies with PT, OT, and HOOP MAKER HELPER MACHINE, while the primary team manages the patient. [...] treatment plan unless otherwise noted. Carol Ann Bsos Paul J, MD - 12/29/2017 5:19 AM [...] DM, HTN who presents in transfer from [facility] for management of SAH. The patient [...] around 8:15pm 12/28 and [facility]. She was noted to have SAH on her CT head and was subsequently transferred to [facility] for further management. At this time the [...] family history. Allergies: Codeine and Penicillins Medications: SUPERVISOR PRODUCTION MANAGING: No prescriptions prior to admission. Inpatient: Scheduled [...] acetaminophen Q4H PRN, calcium gluconate IVPB PRN (Drier Take Off Tender from Rx) AND Ionized Calcium PRN AND* * Notify Physician Ongoing, fentaNYL citrate PF Q1H PRN, hydrALAZINE Q6H PRN, labetalol (NORMODYNE; TRANDATE) injection Q15 MIN PRN, magnesium sulfate PRN AND Magnesium PRN AND Notify Physician Ongoing, ondansetron (ZOFRAN) IV Q6H PRN, oxyCODONE Q4H PRN, potassium chloride SR PRN OR potassium chloride PRN, sodium phosphate IVPB PRN (Drier Take Off Tender from Rx) AND Phosphorus PRN AND* * [...] SBP < 140 until aneurysm treated - [facility] [place] - D/w Dr. Ruslan Pate MD Please call [phone] with questions. ATTESTATION I personally performed the E/M including history, physical exam, and MDM. Grade 1 at present. 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 Will check angio to see if it can be treated interventionally, or would be better clipped. Spoke to patient. [facility] Staff name: Oumar Mercer MD Date: 12/29/2017 in this encounter Miscellaneous Notes Case Mgmt DC Plan - Fara Knott - 01/13/2018 9:34 AM CSTCase Management Progress Note NAME:Yarely Dillon :1944 AGE: 72 y.o. ADMISSION DATE: 12/29/2017 DAYS ADMITTED: LOS: 15 days Todays Date: 01/13/2018 Plan TURNER met with the neurosurgery team regarding d/c planning this morning. Pt is medically stable to d/c to [facility]; who are expecting pt today. Her nephew to transport her this morning in private vehicle. Interventions ? Support Pt has significant family support; her is also in the home and able to provide some support as well. ? Info or Referral ? Discharge Planning Pt to discharge to [facility] today at 9:30am by private vehicle. TURNER notified the RN and providerthat the [facility] can accept. TURNER put together the packet , and faxed the orders to [facility]. [facility] p, fl [address] [place] [address] [place] [address] ? Medication Needs ? Financial ? Legal [...] Disposition: Inpatient Rehab Facility (IRF) Inpatient Rehab: [facility] ([phone]) ? Next Level Care Fara Knott, [facility] [place][id number] Case Mgmt DC Plan - Fara [...] will wait until tomorrow to go to [facility], with her nephew's support. Delon plans to be at [facility] tomorrow at 9:30 to transport pt to [facility]. Interventions ? Support Pt's supportive, but is unable to provide a lot of physical support to her. Their nephew,Delon, is able to transport her to [facility], when it is safe. ? Info or Referral ? Discharge Planning Pt planning to go to [facility] tomorrow (due to weather delay). SW notified IPR of the plan, and they are agreeable and grateful. [facility] p, fx [address] [place] [address] [place] [address] ? Medication Needs ? Financial ? Legal ? Other Disposition ? Discharge Preparation When ready for discharge, who will be responsible for transporting?: facility vs family Type of Residence: Private residence Patient expects to be discharged to: Rehab facility Was the patient receiving home care services?: No ? Expected Discharge Expected Discharge Date: 01/11/18 ? Discharge Disposition ? Next Level Care Fara Knott [facility] *[id number] Case Mgmt DC Plan - Fara [...] her nephews for a ride tomorrow, and [facility] is anticipating admission tomorrow (01/12/18) as well. Interventions ? Support Pt has significant family support in [place] (nephews and her ). SW unsure how much physical support her will be able to provide, but he can be available to her 15/06. ? Info or Referral ? Discharge Planning Ms. Dillon is agreeable to going to [facility] tomorrow; with he support of her nephew for transportation. She was contacting family after TURNER discussed the plan with her. TURNER talked with Rudi with [facility], who is optimistic about accepting pt ([phone]). [facility] p, fx [address] [place]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 Indication: Female, [...] MG/DL Specimen Performing Laboratory MAIN LAB [address] [place] [address] BETA HYDROXYBUTYRATE (KETONES) (01/05/2018 4:16 AM) Component Value Ref Range Beta Hydroxybutyrate 0.1 <0.3 MMOL/L Comment: Beta hydroxybutyrate (BOHB) is the most abundant ketone (78%), followed by acetoacetate (20%) and acetone (2%).Measurement BOHB is recommended to assess ketones in DKA. Expected BOHB Results for DKA: Initial presentation high/increasing During treatment decreasing Resolved decreasing/normal Specimen Performing Laboratory MAIN LAB [address] [place] [address] CBC AND DIFF (01/05/2018 4:16 AM) Component [...] K/UL Specimen Performing Laboratory Blood MAIN LAB [address] [place] [address] 00160 IONIZED CALCIUM (01/05/2018 4:16 AM) Component Value Ref Range Ionized Calcium 1.11 1.0 - 1.3 MMOL/L Specimen Performing Laboratory Blood MAIN LAB [address] [place] [address] 86415 PHOSPHORUS (01/05/2018 4:16 AM) Component Value Ref Range Phosphorus 3.4 2.0 - 4.0 MG/DL Specimen Performing Laboratory Blood MAIN LAB [address] [place] [address] 78710 MAGNESIUM (01/05/2018 4:16 AM) Component Value Ref Range Magnesium 2.0 1.6 - 2.6 mg/dL Specimen Performing Laboratory Blood MAIN LAB [address] [place] [address] 84524 BASIC METABOLIC PANEL (01/05/2018 4:16 AM) Component [...] Pharmacist for questions. Specimen Performing Laboratory Blood [facility] [address] [place] [address] 33007 POC GLUCOSE (01/04/2018 8:14 PM) Component Value Ref Range Glucose, POC 195 (H) 70 - 100 MG/DL Specimen Performing Laboratory [facility] [address] [place] [address] 31886 POC GLUCOSE (01/04/2018 4:22 PM) Component Value Ref Range Glucose, POC 222 (H) 70 - 100 MG/DL Specimen Performing Laboratory [facility] [address] [place] [address] 95056 POC GLUCOSE (01/04/2018 12:08 PM) Component Value Ref Range Glucose, POC 244 (H) 70 - 100 MG/DL Specimen Performing Laboratory [facility] [address] [place] [address] 01474 POC GLUCOSE (01/04/2018 6:46 AM) Component Value Ref Range Glucose, POC 153 (H) 70 - 100 MG/DL Specimen Performing Laboratory [facility] [address] [place] [address] 52559 CBC AND DIFF (01/04/2018 3:45 AM) Component [...] K/UL Specimen Performing Laboratory Blood MAIN LAB [address] [place] [address] 23959 IONIZED CALCIUM (01/04/2018 3:45 AM) Component Value Ref Range Ionized Calcium 1.12 1.0 - 1.3 MMOL/L Specimen Performing Laboratory Blood MAIN LAB [address] [place] [address] 96351 PHOSPHORUS (01/04/2018 3:45 AM) Component Value Ref Range Phosphorus 3.1 2.0 - 4.0 MG/DL Specimen Performing Laboratory Blood MAIN LAB [address] [place] [address] 27800 MAGNESIUM (01/04/2018 3:45 AM) Component Value Ref Range Magnesium 1.8 1.6 - 2.6 mg/dL Specimen Performing Laboratory Blood MAIN LAB [address] [place] [address] 20402 BASIC METABOLIC PANEL (01/04/2018 3:45 AM) Component [...] questions. Specimen Performing Laboratory Blood MAIN LAB [address] [place] [address] 25850 POC GLUCOSE (01/03/2018 8:42 PM) Component Value Ref Range Glucose, POC 206 (H) 70 - 100 MG/DL Specimen Performing Laboratory MAIN LAB [address] [place] [address] 18416 POC GLUCOSE (01/03/2018 4:35 PM) Component Value Ref Range Glucose, POC 174 (H) 70 - 100 MG/DL Specimen Performing Laboratory [facility] [address] [place] [address] 44348 POC GLUCOSE (01/03/2018 11:56 AM) Component Value Ref Range Glucose, POC 184 (H) 70 - 100 MG/DL Specimen Performing Laboratory [facility] [address] [place] [address] 68626 CBC AND DIFF (01/03/2018 9:22 AM) Component [...] - 0.20 K/UL Specimen Performing Laboratory Blood [facility] [address] [place] [address] 47103 POC GLUCOSE (01/03/2018 8:31 AM) Component Value Ref Range Glucose, POC 142 (H) 70 - 100 MG/DL Specimen Performing Laboratory [facility] [address] [place] [address] 50270 POC GLUCOSE (01/03/2018 6:30 AM) Component Value Ref Range Glucose, POC 173 (H) 70 - 100 MG/DL Specimen Performing Laboratory [facility] [address] [place] [address] 47807 IONIZED CALCIUM (01/03/2018 3:40 AM) Component Value Ref Range Ionized Calcium 1.14 1.0 - 1.3 MMOL/L Specimen Performing Laboratory Blood MAIN LAB [address] [place] [address] 87938 PHOSPHORUS (01/03/2018 3:40 AM) Component Value Ref Range Phosphorus 3.1 2.0 - 4.0 MG/DL Specimen Performing Laboratory Blood MAIN LAB [address] [place] [address] 29245 MAGNESIUM (01/03/2018 3:40 AM) Component Value Ref Range Magnesium 2.0 1.6 - 2.6 mg/dL Specimen Performing Laboratory Blood MAIN LAB [address] [place] [address] 38871 BASIC METABOLIC PANEL (01/03/2018 3:40 AM) Component [...] questions. Specimen Performing Laboratory Blood MAIN LAB [address] [place] [address] 96937 POC GLUCOSE (01/02/2018 8:43 PM) Component Value Ref Range Glucose, POC 218 (H) 70 - 100 MG/DL Specimen Performing Laboratory MAIN LAB [address] [place] [address] 49353 POC GLUCOSE (01/02/2018 5:22 PM) Component Value Ref Range Glucose, POC 199 (H) 70 - 100 MG/DL Specimen Performing Laboratory MAIN LAB [address] [place] [address] 81237 POC GLUCOSE (01/02/2018 11:10 AM) Component Value Ref Range Glucose, POC 203 (H) 70 - 100 MG/DL Specimen Performing Laboratory MAIN LAB [address] [place] [address] 28638 POC GLUCOSE (01/02/2018 6:57 AM) Component Value Ref Range Glucose, POC 136 (H) 70 - 100 MG/DL Specimen Performing Laboratory MAIN LAB [address] [place] [address] 40312 IONIZED CALCIUM (01/02/2018 3:20 AM) Component Value Ref Range Ionized Calcium 1.18 1.0 - 1.3 MMOL/L Specimen Performing Laboratory Blood MAIN LAB [address] [place] [address] 23485 PHOSPHORUS (01/02/2018 3:20 AM) Component Value Ref Range Phosphorus 3.6 2.0 - 4.0 MG/DL Specimen Performing Laboratory Blood MAIN LAB [address] [place] [address] 87171 MAGNESIUM (01/02/2018 3:20 AM) Component Value Ref Range Magnesium 2.1 1.6 - 2.6 mg/dL Specimen Performing Laboratory Blood MAIN LAB [address] [place] [address] 19762 BASIC METABOLIC PANEL (01/02/2018 3:20 AM) Component [...] questions. Specimen Performing Laboratory Blood MAIN LAB [address] [place] [address] 24995 CBC AND DIFF (01/02/2018 3:20 AM) Component [...] - 0.20 K/UL Specimen Performing Laboratory Blood [facility] [address] [place] [address] 51271 POC GLUCOSE (01/01/2018 8:07 PM) Component Value Ref Range Glucose, POC 126 (H) 70 - 100 MG/DL Specimen Performing Laboratory [facility] [address] [place] [address] 22639 POC GLUCOSE (01/01/2018 4:19 PM) Component Value Ref Range Glucose, POC 265 (H) 70 - 100 MG/DL Specimen Performing Laboratory [facility] [address] [place] [address] 53621 POC GLUCOSE (01/01/2018 11:34 AM) Component Value Ref Range Glucose, POC 296 (H) 70 - 100 MG/DL Specimen Performing Laboratory [facility] [address] [place] [address] 74399 POC GLUCOSE (01/01/2018 6:17 AM) Component Value Ref Range Glucose, POC 243 (H) 70 - 100 MG/DL Specimen Performing Laboratory [facility] [address] [place] [address] 36719 IONIZED CALCIUM (01/01/2018 5:28 AM) Component Value Ref Range Ionized Calcium 1.23 1.0 - 1.3 MMOL/L Specimen Performing Laboratory Blood [facility] [address] [place] [address] 00637 PHOSPHORUS (01/01/2018 5:28 AM) Component Value Ref Range Phosphorus 3.4 2.0 - 4.0 MG/DL Specimen Performing Laboratory Blood MAIN LAB [address] [place] [address] MAGNESIUM (01/01/2018 5:28 AM) Component Value Ref Range Magnesium 2.1 1.6 - 2.6 mg/dL Specimen Performing Laboratory Blood MAIN LAB [address] [place] [address] BASIC METABOLIC PANEL (01/01/2018 5:28 AM) Component [...] Specimen Performing Laboratory Blood MAIN LAB [address] [place] [address] CBC AND DIFF (01/01/2018 5:28 AM) Component [...] K/UL Specimen Performing Laboratory Blood MAIN LAB [address] [place] [address] 97917 UA REFLEX CULTURE LABEL (12/31/2017 11:45 PM) Component Value Ref Range UA Reflex Culture LAB LABEL Specimen Performing Laboratory Urine MAIN LAB [address] [place] [address] 62322 URINALYSIS MICROSCOPIC REFLEX TO CULTURE (12/31/2017 11:45 PM) Component Value Ref Range WBCs,UA 2-10 0 - 2 /HPF RBCs,UA 0-2 0 - 3 /HPF Comment,UA Urine submitted for reflex culture if criteria are met:WBC>10, positive nitrite and/or >=1+ leukocyte esterase. If quantity is not sufficient, an addendum will follow. Squamous Epithelial Cells 0-2 0 - 5 Specimen Performing Laboratory Urine MAIN LAB [address] [place] [address] 51658 URINALYSIS DIPSTICK REFLEX TO CULTURE (12/31/2017 11:45 PM) Component Value Ref Range Color,UA YELLOW Turbidity,UA CLEAR CLEAR-CLEAR Specific [place]-Urine 1.027 1.003 - 1.035 pH,UA 6.0 5.0 - 8.0 Protein,UA 1+ (A) NEG-NEG Glucose,UA NEG NEG-NEG Ketones,UA 1+ (A) NEG-NEG Bilirubin,UA NEG NEG-NEG Blood,UA NEG NEG-NEG Urobilinogen,UA NORMAL NORM-NORMAL Nitrite,UA NEG NEG-NEG Leukocytes,UA NEG NEG-NEG Urine Ascorbic Acid, UA NEG NEG-NEG Specimen Performing Laboratory Urine MAIN LAB [address] [place] [address] 38887 POC GLUCOSE (12/31/2017 10:03 PM) Component Value Ref Range Glucose, POC 229 (H) 70 - 100 MG/DL Specimen Performing Laboratory MAIN LAB [address] [place] [address] 12164 POC GLUCOSE (12/31/2017 4:42 PM) Component Value Ref Range Glucose, POC 208 (H) 70 - 100 MG/DL Specimen Performing Laboratory MAIN LAB [address] [place] [address] 00195 POC GLUCOSE (12/31/2017 12:00 PM) Component Value Ref Range Glucose, POC 245 (H) 70 - 100 MG/DL Specimen Performing Laboratory [facility] [address] [place] [address] 81953 POC GLUCOSE (12/31/2017 7:50 AM) Component Value Ref Range Glucose, POC 175 (H) 70 - 100 MG/DL Specimen Performing Laboratory [facility] [address] [place] [address] 35625 POC GLUCOSE (12/31/2017 3:03 AM) Component Value Ref Range Glucose, POC 198 (H) 70 - 100 MG/DL Specimen Performing Laboratory [facility] [address] [place] [address] 23680 IONIZED CALCIUM (12/31/2017 3:03 AM) Component Value Ref Range Ionized Calcium 1.09 1.0 - 1.3 MMOL/L Specimen Performing Laboratory Blood [facility] [address] [place] [address] 95014 PHOSPHORUS (12/31/2017 3:03 AM) Component Value Ref Range Phosphorus 2.4 2.0 - 4.0 MG/DL Specimen Performing Laboratory Blood [facility] [address] [place] [address] 97535 MAGNESIUM (12/31/2017 3:03 AM) Component Value Ref Range Magnesium 2.0 1.6 - 2.6 mg/dL Specimen Performing Laboratory Blood [facility] [address] [place] [address] 21930 BASIC METABOLIC PANEL (12/31/2017 3:03 AM) Component [...] questions. Specimen Performing Laboratory Blood MAIN LAB [address] [place] [address] 25221 CBC AND DIFF (12/31/2017 3:03 AM) Component [...] K/UL Specimen Performing Laboratory Blood MAIN LAB [address] [place] [address] 82763 POC GLUCOSE (12/30/2017 9:30 PM) Component Value Ref Range Glucose, POC 242 (H) 70 - 100 MG/DL Specimen Performing Laboratory MAIN LAB [address] [place] [address] 79597 POC GLUCOSE (12/30/2017 4:21 PM) Component Value Ref Range Glucose, POC 148 (H) 70 - 100 MG/DL Specimen Performing Laboratory MAIN LAB [address] [place] [address] 54295 POC GLUCOSE (12/30/2017 11:59 AM) Component Value Ref Range Glucose, POC 142 (H) 70 - 100 MG/DL Specimen Performing Laboratory MAIN LAB [address] [place] [address] 49709 MAGNESIUM (12/30/2017 10:31 AM) Component Value Ref Range Magnesium 2.2 1.6 - 2.6 mg/dL Specimen Performing Laboratory Blood MAIN LAB [address] [place] [address] 09304 POTASSIUM (12/30/2017 10:31 AM) Component Value Ref Range Potassium 3.8 3.5 - 5.1 MMOL/L Specimen Performing Laboratory Blood MAIN LAB [address] [place] [address] 22907 POC GLUCOSE (12/30/2017 8:28 AM) Component Value Ref Range Glucose, POC 130 (H) 70 - 100 MG/DL Specimen Performing Laboratory [facility] [address] [place] [address] 68002 POC GLUCOSE (12/30/2017 5:52 AM) Component Value Ref Range Glucose, POC 144 (H) 70 - 100 MG/DL Specimen Performing Laboratory MAIN LAB [address] [place] [address] 47844 POC GLUCOSE (12/30/2017 4:32 AM) Component Value Ref Range Glucose, POC 153 (H) 70 - 100 MG/DL Specimen Performing Laboratory [facility] [address] [place] [address] 95297 CTA HEAD WO/W CONTR+POST PRO (12/30/2017 4:18 [...] Interface, Radiant Results - 12/30/2017 12:48 PM [employer] EXAM: CTA HEAD HISTORY: Female, 72 years. [...] 100 MG/DL Specimen Performing Laboratory MAIN LAB [address] [place] [address] 42421 TROPONIN-I (12/30/2017 2:05 AM) Component Value Ref Range Troponin-I 0.03 0.0 - 0.05 NG/ML Specimen Performing Laboratory MAIN LAB [address] [place] [address] 07670 IONIZED CALCIUM (12/30/2017 2:05 AM) Component Value Ref Range Ionized Calcium 1.15 1.0 - 1.3 MMOL/L Specimen Performing Laboratory Blood [facility] [address] [place] [address] 30384 PHOSPHORUS (12/30/2017 2:05 AM) Component Value Ref Range Phosphorus 2.9 2.0 - 4.0 MG/DL Specimen Performing Laboratory Blood [facility] [address] [place] [address] 33282 MAGNESIUM (12/30/2017 2:05 AM) Component Value Ref Range Magnesium 1.5 (L) 1.6 - 2.6 mg/dL Specimen Performing Laboratory Blood [facility] [address] [place] [address] 40382 BASIC METABOLIC PANEL (12/30/2017 2:05 AM) Component [...] Specimen Performing Laboratory Blood MAIN LAB [address] [place] [address] CBC AND DIFF (12/30/2017 2:05 AM) Component [...] Specimen Performing Laboratory Blood MAIN LAB [address] [place] [address] POC GLUCOSE (12/30/2017 2:03 AM) Component Value Ref Range Glucose, POC 140 (H) 70 - 100 MG/DL Specimen Performing Laboratory MAIN LAB [address] [place] [address] POC GLUCOSE (12/30/2017 1:09 AM) Component Value Ref Range Glucose, POC 129 (H) 70 - 100 MG/DL Specimen Performing Laboratory [facility] [address] [place] [address] 60982 POC GLUCOSE (12/30/2017 12:17 AM) Component Value Ref Range Glucose, POC 150 (H) 70 - 100 MG/DL Specimen Performing Laboratory [facility] [address] [place] [address] 88652 POC GLUCOSE (12/29/2017 11:21 PM) Component Value Ref Range Glucose, POC 174 (H) 70 - 100 MG/DL Specimen Performing Laboratory [facility] [address] [place] [address] 73053 ECG-SCAN (12/29/2017 11:15 PM) Narrative Ordered by an unspecified provider. POC GLUCOSE (12/29/2017 10:12 PM) Component Value Ref Range Glucose, POC 170 (H) 70 - 100 MG/DL Specimen Performing Laboratory [address] [address] POC GLUCOSE (12/29/2017 9:16 PM) Component Value Ref Range Glucose, POC 194 (H) 70 - 100 MG/DL Specimen Performing Laboratory [facility] [address] [place] [address] 94348 POC GLUCOSE (12/29/2017 8:13 PM) Component Value Ref Range Glucose, POC 160 (H) 70 - 100 MG/DL Specimen Performing Laboratory [address] [address] POC GLUCOSE (12/29/2017 6:58 PM) Component Value Ref Range Glucose, POC 168 (H) 70 - 100 MG/DL Specimen Performing Laboratory [facility] [address] [place] [address] 26818 POC GLUCOSE (12/29/2017 6:01 PM) Component Value Ref Range Glucose, POC 202 (H) 70 - 100 MG/DL Specimen Performing Laboratory [facility] [address] [place] [address] 70057 POC GLUCOSE (12/29/2017 4:56 PM) Component Value Ref Range Glucose, POC 203 (H) 70 - 100 MG/DL Specimen Performing Laboratory [facility] [address] [place] [address] 28712 POC GLUCOSE (12/29/2017 3:55 PM) Component Value Ref Range Glucose, POC 217 (H) 70 - 100 MG/DL Specimen Performing Laboratory [facility] [address] [place] [address] 61085 POC GLUCOSE (12/29/2017 3:12 PM) Component Value Ref Range Glucose, POC 230 (H) 70 - 100 MG/DL Specimen Performing Laboratory [facility] [address] [place] [address] 50133 GLUCOSE,BG (12/29/2017 1:50 PM) Component Value Ref Range Glucose 228 (H) 70 - 100 MG/DL Specimen Performing Laboratory Blood [facility] [address] [place] [address] 56005 HEMOGLOBIN & HEMATOCRIT, BG (12/29/2017 1:50 PM) Component Value Ref Range Hemoglobin BG 11.0 (L) 12.0 - 15.0 GM/DL Hematocrit BG 33.8 (L) 36 - 45 % Specimen Performing Laboratory Blood [facility] [address] [place] [address] 82812 SODIUM,BG (12/29/2017 1:50 PM) Component Value Ref Range Sodium 136 (L) 137 - 147 MMOL/L Specimen Performing Laboratory Blood [facility] [address] [place] [address] 42773 POTASSIUM, BG (12/29/2017 1:50 PM) Component Value Ref Range Potassium 4.3 3.5 - 5.1 MMOL/L Specimen Performing Laboratory Blood [facility] [address] [place] [address] 14390 LACTIC ACID (BG - RAPID LACTATE) (12/29/2017 1:50 PM) Component Value Ref Range Lactic Acid,BG 1.2 0.5 - 2.0 MMOL/L Specimen Performing Laboratory Blood [facility] [address] [place] [address] 76045 IONIZED CALCIUM,BG (12/29/2017 1:50 PM) Component Value Ref Range Ionized Calcium 1.12 1.0 - 1.3 MMOL/L Specimen Performing Laboratory Blood [facility] [address] [place] [address] 86449 BLOOD GASES, ARTERIAL (12/29/2017 1:50 PM) Component Value Ref Range pH-Arterial 7.38 7.35 - 7.45 pCO2-Arterial 31 (L) 35 - 45 MMHG pO2-Arterial 192 (H) 80 - 100 MMHG Base Deficit-Arterial 5.9 MMOL/L O2 Sat-Arterial 99.6 (H) 95 - 99 % Wfgubhnmvcd-QUD-Alq 19.6 (L) 21 - 28 MMOL/L Specimen Performing Laboratory Blood, arterial - Blood [facility] [address] [place] [address] BLOOD TYPE CONFIRMATION - ORDER ONLY IF REQUESTED BY LAB (12/29/2017 12:01 PM) Component Value Ref Range ABO/RH(D) A NEG Specimen Performing Laboratory Blood [facility] [address] [place] [address] IR ARTERIOGRAM NEURO (12/29/2017 10:56 AM) Specimen [...] Neurointerventionalist:Ruben Helm MD Contrast - 200 cc [id number] Total mGy - 1821 Anesthesia: General endotracheal [...] establishing arterial access. RCCA Technique A 5 Lao 100 cm Vert catheter was advanced over a 150 cm 0.035 Clements wire over the aortic arch and into [...] under fluoroscopic and roadmap guidance over the Clements wire and images were obtained in biplane [...] Interface, Radiant Results - 12/29/2017 3:10 PM [employer] Cerebral Angiogram Indication - SAH Procedures Performed [...] Ruben Helm MD Contrast - 200 cc [id number] Total mGy - 1821 Anesthesia: General endotracheal [...] establishing arterial access. RCCA Technique A 5 Lao 100 cm Vert catheter was advanced over a 150 cm 0.035 Clements wire over the aortic arch and into [...] under fluoroscopic and roadmap guidance over the Clements wire and images were obtained in biplane [...] Sat-Arterial 99.3 (H) 95 - 99 % Mozdwgbampf-HYY-Hxt 20.5 (L) 21 - 28 MMOL/L Specimen Performing Laboratory [facility] [address] [place] [address] TYPE & CROSSMATCH (12/29/2017 10:45 AM) Component Value Ref Range Units Ordered 2 Crossmatch Expires 01/01/2018 Record Check 2ND TYPE REQUIRED ABO/RH(D) A NEG Antibody Screen NEG Electronic Crossmatch YES Unit Number [id number] Blood Component Type RBC,ADSOL,LEUKO REDUCED Unit Division 0 Status OF Unit REL FROM ALLOC Transfusion Status OK TO TRANSFUSE Crossmatch Result COMPATIBLE,ELECTRONIC Unit Number [id number] Blood Component Type RBC,ADSOL,LEUKO REDUCED,2ND CONT. Unit Division 0 Status OF Unit REL FROM ALLOC Transfusion Status OK TO TRANSFUSE Crossmatch Result COMPATIBLE,ELECTRONIC Specimen Performing Laboratory Blood [facility] [address] [place] [address] CTA HEAD WO/W CONTR+POST PRO (12/29/2017 7:00 [...] Interface, Radiant Results - 12/29/2017 8:39 AM [employer] Exam: CTA of the head. History: Subarachnoid [...] <7%. Specimen Performing Laboratory MAIN LAB [address] [place] [address] IONIZED CALCIUM (12/29/2017 5:44 AM) Component Value Ref Range Ionized Calcium 1.15 1.0 - 1.3 MMOL/L Specimen Performing Laboratory Blood MAIN LAB [address] [place] [address] LIPID PROFILE (12/29/2017 5:44 AM) Component Value [...] Specimen Performing Laboratory Blood MAIN LAB [address] [place] [address] LACTIC ACID(LACTATE) (12/29/2017 5:44 AM) Component Value Ref Range Lactic Acid 1.7 0.5 - 2.0 MMOL/L Specimen Performing Laboratory Blood MAIN LAB [address] [place] [address] PHOSPHORUS (12/29/2017 5:44 AM) Component Value Ref Range Phosphorus 3.2 2.0 - 4.0 MG/DL Specimen Performing Laboratory Blood MAIN LAB [address] [place] [address] MAGNESIUM (12/29/2017 5:44 AM) Component Value Ref Range Magnesium 1.5 (L) 1.6 - 2.6 mg/dL Specimen Performing Laboratory Blood MAIN LAB [address] [place] [address] COMPREHENSIVE METABOLIC PANEL (12/29/2017 5:44 AM) Component [...] questions. Specimen Performing Laboratory Blood MAIN LAB [address] [place] [address] PTT (APTT) (12/29/2017 5:44 AM) Component Value Ref Range APTT 24.8 21.0 - 39.0 SEC Specimen Performing Laboratory Blood MAIN LAB [address] [place] [address] PROTIME INR (PT) (12/29/2017 5:44 AM) Component Value Ref Range INR 1.1 0.8 - 1.2 Specimen Performing Laboratory Blood MAIN LAB [address] [place] [address] CBC AND DIFF (12/29/2017 5:44 AM) Component [...] Specimen Performing Laboratory Blood MAIN LAB [address] [place] [address] in this encounter Visit Diagnoses Diagnosis Subarachnoid [...] (TYLENOL) tablet 650 mg Given 01/12/2018 03:10 [employer] 650 mg 650 mg, Oral, EVERY 4 HOURS PRN, Starting Thu12/29/17 at 0311, Until Thu01/13/18 at 1244, Pain non-opioid: may be used alone or in combination with opioid analgesia, Temp > 38.5 C, TOTAL ACETAMINOPHEN DOSE NOT TO EXCEED 4GM DAILY Given 01/12/2018 13:56 [employer] 650 mg Given 01/12/2018 21:35 [employer] 650 mg bacitracin (BACIIM) 50,000 Units in Ringer's Given 12/29/2017 12:48 [employer] 500 mL Other 500 mL irrigation bottle 500 mL, INTRA-PROCEDURE MED, Starting Thu12/29/17 at 1248, Until Thu12/29/17 at 1643, Intra-op bacitracin topical ointment Given 12/29/2017 12:47 [employer] 1 Dose Other INTRA-PROCEDURE MED, Starting Thu12/29/17 at 1247, Until Thu12/29/17 at 1643, Intra-op Given 12/29/2017 12:48 [employer] 1 Dose Other bisacodyl (DULCOLAX) rectal suppository 10 mg 10 mg, Rectal, DAILY PRN, Starting Thu12/30/17 at 1200, Until Thu01/13/18 at 1244, Constipation IN, Please give if no BM in > 24 hours docusate (COLACE) capsule 100 mg Given 12/30/2017 21:24 [employer] 100 mg 100 mg, Oral, TWICE DAILY, First dose on Thu12/29/17 at 0900, Until Discontinued, Hold for loose stools Given 12/31/2017 08:52 [employer] 100 mg Given 01/02/2018 20:40 [employer] 100 mg glyBURIDE (DIABETA) tablet 2.5 mg Given 01/12/2018 08:11 [employer] 2.5 mg 2.5 mg, Oral, TWICE DAILY WITH MEALS, First dose on Thu01/10/18 at 2030, Until Discontinued Given 01/12/2018 18:23 [employer] 2.5 mg Given 01/13/2018 08:02 [employer] 2.5 mg heparin (porcine) PF syringe Given 01/12/2018 13:56 [employer] 5,000 Units Abdominal Tissue 5,000 Units 5,000 Units, Subcutaneous, EVERY 8 HOURS, First dose on Thu12/30/17 at 2200, Until Discontinued, NOTE: This is a HIGH ALERT Medication. Given 01/12/2018 21:33 [employer] 5,000 Units Abdomen:LLQ Given 01/13/2018 07:04 [employer] 5,000 Units Abdomen:RLQ insulin aspart (NOVOLOG FLEXPEN) Given 01/10/2018 17:22 [employer] 8 Units Abdominal Tissue injection PEN 0-28 Units 0-28 Units, Subcutaneous, BEFORE MEALS AND AT BEDTIME, First dose on Amy 12/31/17 at 1100, Until Discontinued, -POC glucose 140-180mg/dL [...] , administer 20 units insulin, at , 03* administer 16 units. -POC glucose 351-400mg/dL at , , administer 24 units insulin, at , 03* administer 20 units. -POC glucose >400mg/dL at , , administer 28 units insulin, at , 03* administer 24 units. *only if ordered 5x's daily For POCT glucose >350mg/dL give correction bolus and recheck POCT glucose in 2 hours. If POCT glucose at 2 hours >300mg/dL call physician for further orders. For patients who are not eating meals, continue to administer the appropriate correction factor. NOTE: This is a HIGH ALERT Medication. Given 01/11/2018 08:26 [employer] 8 Units Arm, Right Given 01/12/2018 12:13 [employer] 4 Units Arm, Right lidocaine 1%/EPINEPHrine 1:100,000 injection Given 12/29/2017 12:47 [employer] 7.5 mL Other INTRA-PROCEDURE MED, Starting Tu12/29/17 at 1247, Until Thu12/29/17 at 1643, Intra-op melatonin tablet 5 mg Given 01/09/2018 21:00 [employer] 5 mg 5 mg, Oral, AT BEDTIME DAILY, First dose on Amy 01/07/18 at 2100, Until Discontinued Given 01/11/2018 21:35 [employer] 5 mg Given 01/12/2018 21:34 [employer] 5 mg metFORMIN (GLUCOPHAGE) tablet 500 mg Given 01/12/2018 08:11 [employer] 500 mg 500 mg, Oral, TWICE DAILY WITH MEALS, First dose on 01/10/18 at 2030, Until Discontinued Given 01/12/2018 18:23 [employer] 500 mg Given 01/13/2018 08:03 [employer] 500 mg methyldopa (ALDOMET) tablet 250 mg Given 01/12/2018 08:10 [employer] 250 mg 250 mg, Oral, TWICE DAILY, First dose on Thu12/30/17 at 1015, Until Discontinued Given 01/12/2018 21:34 [employer] 250 mg Given 01/13/2018 08:02 [employer] 250 mg milk of magnesia (CONC) oral suspension 10 mL Given 12/31/2017 08:52 [employer] 10 mL 10 mL, Oral, DAILY, First dose on 12/29/17 at 0900, Until Discontinued, May hold if BM within 24 hours of dose. 10 mL CONC=30 mL MOM niMODipine (NIMOTOP) capsule 60 mg Given 01/12/2018 21:33 [employer] 60 mg 60 mg, Oral, EVERY 4 HOURS, 85 doses, First dose on Thu01/06/18 at 0200, Last dose on Thu01/20/18 at 0200 Given 01/13/2018 02:43 [employer] 60 mg Given 01/13/2018 07:05 [employer] 60 mg ondansetron (ZOFRAN) injection 4 mg 4 mg, Intravenous, EVERY 6 HOURS PRN, Starting e 12/29/17 at 0311, Until Thu01/13/18 at 1244, Nausea/Vomiting Injectable oxyCODONE (ROXICODONE, OXY-IR) tablet 5 mg Given 01/05/2018 02:10 [employer] 5 mg 5 mg, Oral, EVERY 4 HOURS PRN, Starting 01/03/18 at 0900, Until Thu01/13/18 at 1244, Pain PO Given 01/08/2018 22:30 [employer] 5 mg Given 01/10/2018 17:20 [employer] 5 mg senna/docusate (SENOKOT-S) tablet 1 tablet Given 12/30/2017 21:24 [employer] 1 tablet 1 tablet, Oral, TWICE DAILY, First dose on Thu12/29/17 at 0900, Until Discontinued, Hold for loose stools. If patient unable to take tablet, give 10 mL of senna/docusate (SENOKOT-S) solution. Send inLumaqco message to pharmacy. Given 12/31/2017 08:52 [employer] 1 tablet Given 01/02/2018 20:40 [employer] 1 tablet sodium chloride(#) inj for po solution 34 mEq Given 01/12/2018 08:11 [employer] 34 mEq 34 mEq, Oral, EVERY 12 HOURS, First dose on Thu01/11/18 at 2100, Until Discontinued Given 01/12/2018 21:41 [employer] 34 mEq Given 01/13/2018 09:52 [employer] 34 mEq thrombin 5,000 unit topical solution Given 12/29/2017 12:48 [employer] 5,000 Units Other INTRA-PROCEDURE MED, Starting Thu12/29/17 at 1248, Until Thu12/29/17 at 1643, Intra-op in this encounter
--- OUTSIDE RECORDS SUMMARY | 2018-03-02 16:10 | External Medical Summary | Continuity of Care Document ---
:1945 Author Organization [facility] Allergies Active Description Code Type Severity Reaction Onset Reported/ Identified Relationship Clinical to Patient Status Yes acetaminophe NKMA N/A N/A 03/24/2014 n Yes codeine NKMA N/A N/A 03/24/2014 Yes penicillin NKMA N/A N/A 03/24/2014 Yes codeine Aller Unknown N/A 01/13/2018 gy Yes Penicillins Aller Unknown N/A 01/13/2018 gy Medications Medication Packaging Start Stop Route Dosage Sig Date Date 11/03/20 Oral glyBURIDE-metFORM 4 14 Oral, take IN(Glucovance 2.5 one tablet mg-500 mg oral in the a.m. tablet) and 1/2 tablet at supper 1 tabs 11/03/20 Oral spironolactone-hy 4 14 1 tabs, drochlorothiazide Oral, Daily (Aldactazide 25 mg-25 mg oral tablet) 1 tabs 11/03/20 Oral 250 mg methyldopa(methyl 4 14 1 tabs, dopa 250 mg oral Oral, BID tablet) 11/09/20 glyBURIDE-metFORM 4 15 See IN(Glucovance 2.5 Instruction mg-500 mg oral s, 1 tab in tablet) the morning and 1/2 tab in the evening, 135 tabs, 3 Refill(s) 1 tabs 11/09/20 Oral spironolactone-hy 4 15 1 tabs, drochlorothiazide Oral, (Aldactazide 25 Daily, 90 mg-25 mg oral tabs, 3 tablet) Refill(s) 1 tabs 11/09/20 Oral 250 mg methyldopa(methyl 4 15 250 mg=1 dopa 250 mg oral tabs, Oral, tablet) BID, 180 tabs, 3 Refill(s) 07/21/20 glyBURIDE-metFORM 6 16 See IN(Glucovance 2.5 Instruction mg-500 mg oral s, 1 tab in tablet) the morning and 1/2 tab in the evening, 135 tabs, 1 Refill(s) 1 tabs 07/21/20 Oral 250 mg methyldopa(methyl 6 16 250 mg=1 dopa 250 mg oral tabs, Oral, tablet) BID, 180 tabs, 1 Refill(s) 1 tabs 07/21/20 Oral spironolactone-hy 6 16 1 tabs, drochlorothiazide Oral, (Aldactazide 25 Daily, 90 mg-25 mg oral tabs, 1 tablet) Refill(s) 0.5 mL 07/18/20 IntraMuscular tetanus/diphth/pe 6 16 0.5 mL, rtuss (Tdap) IntraMuscul adult/adol(Boostr ar, Once ix (Tdap) intramuscular suspension) 1 tabs 07/28/20 Oral sulfamethoxazole- 6 16 1 tabs, trimethoprim(Bact Oral, BID, rim DS 800 mg-160 for 7 days, mg oral tablet) 14 tabs, 0 Refill(s) 07/21/20 glyBURIDE-metFORM 6 16 See IN(Glucovance 2.5 Instruction mg-500 mg oral s, 1 tab in tablet) the morning and 1/2 tab in the evening, 135 tabs, 1 Refill(s) 1 tabs Oral 250 mg methyldopa(methyl 6 250 mg=1 dopa 250 mg oral tabs, Oral, tablet) BID, 180 tabs, 1 Refill(s) 1 tabs Oral spironolactone-hy 6 1 tabs, drochlorothiazide Oral, (Aldactazide 25 Daily, 90 mg-25 mg oral tabs, 1 tablet) Refill(s) 01/16/20 glyburide-metform 6 17 See in(glyBURIDE-metF Instruction ORMIN 2.5 mg-500 s, TAKE ONE mg oral tablet) TABLET BY MOUTH EVERY MORNING AND TAKE ONE-HALF TABLET BY MOUTH EVERY EVENING, 135 tabs 01/30/20 methyldopa(methyl 6 17 See dopa 250 mg oral Instruction tablet) s, TAKE ONE TABLET BY MOUTH TWICE A DAY, 180 tabs 01/30/20 spironolactone-hy 6 17 See droCHLOROthiazide Instruction (Aldactazide 25 s, TAKE ONE mg-25 mg oral TABLET BY tablet) MOUTH DAILY, 90 tabs 06/18/20 spironolactone-hy 7 17 See droCHLOROthiazide Instruction (Aldactazide 25 s, TAKE ONE mg-25 mg oral TABLET BY tablet) MOUTH DAILY, 90 tabs, 1 Refill(s) methyldopa(methyl 7 See dopa 250 mg oral Instruction tablet) s, TAKE ONE TABLET BY MOUTH TWICE A DAY, 180 tabs, 1 Refill(s) glyburide-metform 7 See in(glyBURIDE-metF Instruction ORMIN 2.5 mg-500 s, TAKE ONE mg oral tablet) TABLET BY MOUTH EVERY MORNING AND TAKE ONE HALF TABLET BY MOUTH EVERY EVENING, 135 tabs, 1 Refill(s) 1 tabs Oral spironolactone-hy 7 1 tabs, droCHLOROthiazide Oral, (Aldactazide 25 Daily, 90 mg-25 mg oral tabs, 1 tablet) Refill(s) PO 250 mg Aldomet 8 BID PO 1 each Aldactazide 25-25 8 DAILY Tablet PO 30 mg Nymalize 8 Q4H PO 1 each Senokot-S Tablet 8 BID SQ 5,000 HEPARIN 8 unit/ml Q8H 5,000unit/ml PO 4 meq/ml Sodium Chloride 8 TIDWM Conc PO 500 mg Glucophage 8 BIDWM PO 2.5 mg Micronase 8 BIDWM PO 250 mg Aldomet 8 BID PO 325 mg Tylenol 8 Q4H PO 5 mg Roxicodone *Ir* 8 Q4H Problems Date Dx Attending Type Code Diagnosis Diagnosed By Coded 07/18/2016 Bing, Final E11.9 Type 2 diabetes Brittney Bernardo mellitus without complications 07/18/2016 Bing, Final E66.9 Obesity, Brittney Bernardo unspecified 07/18/2016 Bing, Final I10 Essential (primary) Brittney Bernardo hypertension 07/18/2016 Bing, Final Z23 Encounter for Brittney Bernardo immunization 01/29/2017 Bing, Final E11.9 Type 2 diabetes Brittney Bernardo mellitus without complications 01/29/2017 Bing, Final I10 Essential (primary) Brittney Bernardo hypertension 01/29/2017 Bing, Final Z23 Encounter for Brittney Bernardo immunization 06/18/2017 Pastor Fatima Final E11.9 Type 2 diabetes W mellitus without complications 06/18/2017 Pastor Fatima Final E66.9 Obesity, W unspecified 06/18/2017 Pastor Fatima Final I10 Essential (primary) W hypertension 07/04/2017 Bing, Final Z13.220 Encounter for Brittney Bernardo screening for lipoid disorders Procedures Code Description [place] [address] Immunization 07/18/2016 administration (includes percutaneous, intradermal, subcutaneous, or intramuscular injections); 1 vaccine (single or combination vaccine/toxoid).. 59572 Tetanus, 07/18/2016 diphtheria toxoids and acellular pertussis vaccine (Tdap), when administered to individuals 7 years or older, for intramuscular use 15297 Office or 07/18/2016 other outpatient visit for the evaluation and management of an established patient, which requires at least 2 of these 3 jackson components: A detailed history; A detailed examination; Medical d 10196 Office or 01/29/2017 other outpatient visit for the evaluation and management of an established patient, which requires at least 2 of these 3 jackson components: A detailed history; A detailed examination; Medical d 32923 Office or 06/18/2017 other outpatient visit for the evaluation and management of an established patient, which requires at least 2 of these 3 jackson components: A detailed history; A detailed examination; Medical d Results Test Result Range CBC With Platelet and Differential - 07/18/16 08:47 Absolute Basophils 0.01 10*3 0.00-0.20 Absolute Eosinophils 0.08 10*3 0.00-0.50 Absolute Lymphocytes 1.80 10*3 0.80-3.30 Absolute Monocytes 0.35 10*3 0.30-1.00 Absolute Neutrophils 3.39 10*3 1.90-7.00 Basophils 0 % 0-2 Eosinophils 1 % 0-4 HCT 36.7 % 37.0-47.0 HGB 12.7 g/dL 12.0-16.0 Immature Granulocytes 0.4 % 0.0-1.0 Lymphocytes 32 % 20-46 MCH 30.2 pg 27.0-32.0 MCHC 34.6 g/dL 32.0-36.0 MCV 87.4 fL 82.0-99.0 Monocytes 6 % 4-11 MPV 9.5 fL 8.8-14.8 Neutrophils 60 % 51-75 Platelet Count 148 K/uL 150-400 RBC 4.20 10*6/uL 4.00-5.20 RDW 13.5 % 11.5-14.5 WBC 5.6 K/uL 4.8-10.8 Lipid Panel - 07/18/16 08:47 Cardiac Risk 3.2 0.0-5.0 Cholesterol 130 mg/dL 0-199 HDL Cholesterol 41 mg/dL 40-84 LDL Cholesterol 74 mg/dL 0-130 Triglycerides 77 mg/dL 0-149 VLDL Cholesterol 15 mg/dL 0-28 eGFR - 07/18/16 08:47 eGFR >60 mL/min >60 Comprehensive Metabolic Panel (CMP) - 07/18/16 08:47 Albumin 4.2 g/dL 3.4-4.8 Alkaline Phosphatase 45 U/L 40-150 ALT (SGPT) 13 U/L 0-55 Anion Gap 8 NA 3-20 AST (SGOT) 13 U/L 5-34 Bilirubin Total 0.4 mg/dL 0.2-1.2 BUN 19 mg/dL 10-20 Calcium 9.2 mg/dL 8.9-10.5 Chloride 109 mEq/L 99-111 CO2 25 mEq/L 22-31 Creatinine 0.86 mg/dL 0.57-1.11 Globulin 2.0 g/dL 1.8-4.0 Glucose 149 mg/dL 70-99 Potassium 4.1 mEq/L 3.5-5.2 Protein 6.2 g/dL 6.0-7.6 Sodium 142 mEq/L 135-144 TSH with Reflex Free T4 - 07/18/16 08:47 TSH with Reflex Free T4 0.76 uIU/mL 0.35-4.94 Hemoglobin A1C - 07/18/16 08:47 Hemoglobin A1C 6.3 % 4.1-5.6 Estimated Average Glucose - 07/18/16 08:47 Estimated Average Glucose 134.1 mg/dL Urinalysis with reflex microscopic - 07/18/16 08:55 Appearance Clear NA Bilirubin Negative NA Negative Blood Negative NA Negative Color Yellow NA Glucose, Urine Negative Negative Ketones Negative Negative Leukocyte Esterase Trace NA Negative Nitrites Negative NA Negative pH 6.0 NA 5.0-8.0 Protein Negative Negative Specific [place] 1.014 NA 1.003-1.030 UA Collection type Clean Catch NA Urobilinogen 0.2 mg/dL <1.0 Urine Microscopic - 07/18/16 08:55 Bacteria Numerous NA Epithelial Cells 0 /HPF Hyaline Casts 1 /LPF 0-3 RBC, Urine 0 /HPF 0-4 L100.0050 - 12/28/17 22:20 WBC - WHITE BLOOD COUNT 9.4 T/MM3 4.5-11.0 RED BLOOD COUNT 4.15 M/MM3 4.00-5.20 HGB - HEMOGLOBIN 12.9 GM/DL 12-16 HCT - HEMATOCRIT 37.9 % 36-46 MEAN CORPUSCULAR VOLUME 91.3 UM3 80-100 MEAN CORPUSCULAR HGB 31.1 UUG 26-34 MEAN CORPUSCULAR HGB CONC(MCHC 34.0 GM/DL 31-37 RDW STANDARD DEVIATION 43.6 FL 36.9-50.2 PLT - PLATELET COUNT 115 T/MM3 130-400 MEAN PLATELET VOLUME 9.3 UM3 9.4-12.4 NEUTROPHILS % (AUTO) 78.4 % 33-66 LYMPHOCYTES % (AUTO) 16.0 % 23-45 MONOCYTES % (AUTO) 4.2 % 0-9.0 EOSINOPHILS % (AUTO) 1.0 % 0-4 BASOPHILS % (AUTO) 0.2 % 0-2 IMMATURE GRANULOCYTE % (AUTO) 0.2 % 0.0-0.5 NEUTROPHILS # (AUTO) 7.3 T/MM3 1.8-7.7 LYMPHOCYTES # (AUTO) 1.5 T/MM3 1-4.8 MONOCYTES # (AUTO) 0.4 T/MM3 0-0.8 EOSINOPHILS # (AUTO) 0.1 T/MM3 0-0.5 BASOPHILS # (AUTO) 0.0 T/MM3 0-0.2 IMMATURE GRANULOCYTE # (AUTO) 0.02 T/MM3 0.00-0.03 L200.0020 - 12/28/17 22:20 FUNGAL CULTURE. 0.8 MG/DL 0.7-1.2 FUNGAL CULTURE, BLOOD. 24 RATIO 6-26 NA - Sodium 143 MEQ/L 134-144 Potassium 4.2 MEQ/L 3.6-5 Chloride 105 MEQ/L 98-107 CO2 - Carbon Dioxide 23 MEQ/L 22-30 Anion Gap 15 MEQ/L 5-15 BUN - Blood Urea Nitrogen 19.0 MG/DL 7-17 Glomerular Filtration Rate 70 NRG Glucose 213 MG/DL 65-110 Osmolality,Calculated 283 MOSM/KG 261-280 Calcium 9.5 MG/DL 8.4-10.2 Bilirubin,Total 0.40 MG/DL 0.20-1.30 Alkaline Phosphatase 62 U/L 38-126 AST - Aspartate Amino Transfer 23 U/L 14-36 ALT 25 U/L 9-52 TP - Total Protein 7.3 G/DL 6.3-8.2 Albumin Level 4.4 G/DL 3.5-5.0 Globulin 2.9 G/DL 2.4-3.6 Albumin/Globulin Ratio 1.5 RATIO 1.1-2.2 LICTERUS < 2 0-7 LHEMOLYSIS < 15 0-25 LTURBIDITY < 20 0-20 L200.2067 - 12/28/17 22:20 Lactate 2.4 MMOL/L 0.6-2.2 L200.1700 - 12/28/17 22:20 Creatine Kinase - CK 80 U/L 30-135 L300.3490 - 12/28/17 22:20 Troponin I 0.015 ng/ml 0-0.12 L300.3700 - 12/28/17 22:20 B-Type Natriuretic Peptide 714 pg/mL 0-175 L5570.5784 - 12/28/17 22:33 LINFAR Negative Negative LINFBR Negative Negative L600.0100 - 12/28/17 23:57 POTASSIUM Urine, Cath Straight NRG CHLORIDE YELLOW YELLOW ANION GAP CLEAR NRG BLOOD UREA NITROGEN 7.0 5.0-8.0 BUN/CREATININE RATIO TRACE NEGATIVE GLUCOSE TRACE NEGATIVE CALCIUM 1+ NEGATIVE BILIRUBIN, CONJUG & NEGATIVE NEGATIVE UNCONJUG Specific [place],Urine 1.015 1.015-1.025 Leukocyte Esterase,Urine TRACE NEGATIVE Nitrate,Urine NEGATIVE NEGATIVE Urobilinogen,Urine 0.2 EU/DL NORMAL Occult Blood,Urine - Dipstick TRACE-LYSED NEGATIVE Urine Microscopic (UA) Microscopic Not Ind. NRG .52901/13/18 17:45 Glucometer 189 mg/dL 65-110 .52901/14/18 05:43 Glucometer 130 mg/dL 65-110 .52901/14/18 10:43 Glucometer 210 mg/dL 65-110 .52901/14/18 15:14 Glucometer 108 mg/dL 65-110 .52901/14/18 20:41 Glucometer 166 mg/dL 65-110 00.52901/15/18 06:11 Glucometer 116 mg/dL 65-110 00.52901/15/18 10:11 Glucometer 154 mg/dL 65-110 00.52901/15/18 14:18 Glucometer 98 mg/dL 65-110 00.52901/15/18 20:01 Glucometer 142 mg/dL 65-110 00.52901/16/18 06:47 Glucometer 114 mg/dL 65-110 00.52901/16/18 10:16 Glucometer 174 mg/dL 65-110 00.52901/16/18 14:07 Glucometer 123 mg/dL 65-110 00.52901/16/18 19:50 Glucometer 135 mg/dL 65-110 00.52901/17/18 05:49 Glucometer 119 mg/dL 65-110 00.52901/17/18 10:03 Glucometer 181 mg/dL 65-110 00.52901/17/18 14:55 Glucometer 71 mg/dL 65-110 00.52901/17/18 20:20 Glucometer 134 mg/dL 65-110 L900.0530 - 01/18/18 06:12 Glucometer 104 mg/dL 65-110 L900.0530 - 01/18/18 10:02 Glucometer 163 mg/dL 65-110 L900.05 - 01/18/18 14:03 Glucometer 85 mg/dL 65-110 L900.0530 - 01/18/18 19:49 Glucometer 167 mg/dL 65-110 L900.05 - 01/19/18 04:59 Glucometer 84 mg/dL 65-110 L200.0050 - 01/19/18 08:12 FUNGAL CULTURE. 0.8 MG/DL 0.7-1.2 FUNGAL CULTURE, BLOOD. 23 RATIO 6-26 NA - Sodium 132 MEQ/L 134-144 Potassium 4.5 MEQ/L 3.6-5 Chloride 97 MEQ/L 98-107 CO2 - Carbon Dioxide 24 MEQ/L 22-30 Anion Gap 11 MEQ/L 5-15 BUN - Blood Urea Nitrogen 18.0 MG/DL 7-17 Glomerular Filtration Rate 70 NRG Glucose 116 MG/DL 65-110 Osmolality,Calculated 258 MOSM/KG 261-280 Calcium 9.1 MG/DL 8.4-10.2 LICTERUS < 2 0-7 LHEMOLYSIS < 15 0-25 LTURBIDITY < 20 0-20 L900.529 - 01/19/18 10:17 Glucometer 160 mg/dL 65-110 Encounters ACCT No. Visit Discharge Status Pt. Type Provider Facility Loc./Unit Complaint Date/Time [id number] 10/27/2013 10/27/2013 CLS Outpatie 08:50:00 23:59:59 nt [id number] 01/13/2018 01/19/2018 DIS Inpatien José Antonio Castillo Brain 828 16:57:00 11:45:00 t , [facility] traumatic subarachnoid hemmorage [id number] 12/28/2017 12/29/2017 DIS Emergenc Jonathan FOOTE DO syncopal 722 20:55:00 03:17:00 y RORY Bernardo Medical [facility] [id number] 06/18/2017 06/18/2017 DIS Outpatie [place], [facility] [address]71 08:43:00 23:59:00 nt Pastor Russell pt to Clinic Est [id number] 01/29/2017 01/29/2017 DIS Outpatie [place] [facility] FM 6 mo nico 180 09:41:00 23:59:00 nt , Brittney Peoples [facility] [id number] 07/18/2016 07/18/2016 DIS Outpatie [place] [facility] New FM TCMA 6 mo 258 07:48:00 23:59:00 nt , Brittney Peoples nico M [facility] [id number] 01/18/2016 01/18/2016 DIS Outpatie [place] [facility] New FM Med Check 549 07:52:00 23:59:00 nt , Brittney Peoples [facility] [id number] 11/03/2014 11/03/2014 DIS Outpatie Russell, [facility] New FM med check 455 14:42:00 23:59:00 nt Yariel Jimenez [facility] [id number] 06/19/2017 Document [id number] 05:18:46 Registra tion [id number] 04/16/2017 Document [id number] 05:16:22 Registra tion [id number] 01/30/2017 Document [id number] 05:16:39 Registra tion [id number] 07/22/2016 Document [id number] 05:19:52 Registra tion [id number] 07/19/2016 Document [id number] 05:18:12 Registra tion [id number] 01/19/2016 Document [id number] 05:17:15 Registra tion [id number] 09/12/2015 Document [id number] 10:41:04 Registra tion
--- OUTSIDE RECORDS SUMMARY | 2018-03-02 16:10 | External Medical Summary | Referral Summary ---
:1945 Author Organization [facility] [place] [address] Care Team Providers Name Role Phone Yariel Russell Primary Care Physician Encounter VC Date(s): 01/29/17 - 01/29/17 [facility] [place] [address] Discharge Diagnosis: Benign hypertension Discharge Diagnosis: Diabetes Discharge Diagnosis: Immunization due Discharge Disposition: 01-Home or Self Care Attending Physician: Brittney Samrt PA-C Admitting Physician: Brittney Smart PA-C Vital Signs Most recent to oldest [Reference Range]: 1 Temperature Tympanic [36.6-38.1 degC] 37.4 degC (01/29/17 9:46 AM) Peripheral Pulse Rate [60-100 bpm] 112 bpm *HI* (01/29/17 9:46 AM) Blood Pressure [90-140/60-90 mmHg] 148/78 mmHg *HI* (01/29/17 9:46 AM) Problem List Condition Effective Dates Status Health Status Informant Benign hypertension(Confirmed) Active Diabetes(Confirmed) Active Obesity (BMI 30.0-34.9)(Confirmed) Active Allergies, Adverse Reactions, Alerts Substance Reaction Severity Status acetaminophen Active codeine Active penicillin Active Medications Aldactazide 25 mg-25 mg oral tablet 1 tabs, Oral, Daily, # 90 tabs, 1 Refill(s), Pharmacy: [facility] #[id number] Start Date: 07/21/16 Status: OrderedAldactazide 25 mg-25 mg oral tablet See Instructions, TAKE ONE TABLET BY MOUTH DAILY, # 90 tabs, 1 Refill(s), Pharmacy: [facility]#[id number] Start Date: 01/29/17 Status: OrderedglyBURIDE-metFORMIN 2.5 mg-500 mg oral tablet See Instructions, TAKE ONE TABLET BY MOUTH EVERY MORNING AND TAKE ONE-HALF TABLET BY MOUTH EVERY EVENING, # 135 tabs, eRx: [facility] #[id number], TAKE ONE TABLET BY MOUTH EVERY MORNING AND TAKE ONE-HALF TABLET BY MOUTH EVERY EVENING Start Date: 01/16/17 Status: Orderedmethyldopa 250 mg oral tablet See Instructions, TAKE ONE TABLET BY MOUTH TWICE A DAY, # 180 tabs, 1 Refill(s) , Pharmacy: [facility] #[id number], TAKE ONE TABLET BY MOUTH TWICE A DAY Start Date: 01/29/17 Status: Orderedmethyldopa 250 mg oral tablet 250 mg 1 tabs, Oral, BID, # 180 tabs, 1 Refill(s), Pharmacy: [facility] # [id number], 1 tabs Oral BID Start Date: 07/21/16 Status: Ordered Results No data available for this section Immunizations Given and Recorded Vaccine Date Status Refusal Reason tetanus/diphth/pertuss (Tdap) adult/adol 07/18/16 Given tetanus-diphth toxoids (Td) adult/adol 08/02/03 Recorded Procedures No data available for this section Social History Social History Type Response Smoking Status Former smoker; Type: Cigarettes Assessment and Plan Extracted from: Title: Office Visit Note- Med ck Author: Brittney Smart PA-C Date: Assessment/Plan Benign hypertension Pt does not want to change any medications at this time. BP was elevated today, but she has not taken her meds yet today. Refills sent. She wants to do lab tomorrow. Order in computer. Recheck in cli jayy in 6 months. With co-morbidity of T2DM, should have BP goal of <130/80. Will also check another random UA. If continuing with asx UTI, may need to refer to Urology. Ordered: methyldopa, See Instructions, TAKE ONE TABLET BY MOUTH TWICE A DAY, # 180 tabs, 1 Refill(s), Pharmacy: [facility] #[id number], TAKE ONE TABLET BY MOUTH TWICE A DAY spironolactone-hydroCHLOROthiazide, See Instructions, TAKE ONE TABLET BY MOUTH DAILY, # 90 tabs, 1 Refill(s), Pharmacy: [facility] #[id number] Basic Metabolic Panel Office Visit Level 4 Est 79655 Urinalysis with Culture if Indicated Diabetes Will recheck A1C again. Will come back tomorrow to do this. Continue on Glucovance at this time. Needs yearly diabetic eye exams and foot exams. Ordered: Basic Metabolic Panel Hemoglobin A1c Office Visit Level 4 Est 11257 Immunization due According to our records, needs Zostavax, Prevnar 13, Pneumovax 23 (and flu shot in fall). Ordered: Office Visit Level 4 Est 64143 Need to discuss if pt needs/wants mammogram, colonoscopy/colon cancer screening, and DEXA.
--- OUTSIDE RECORDS SUMMARY | 2018-03-02 16:10 | External Medical Summary | Encounter Summary ---
:1945 Author Organization [facility] Address [address] [place] [address] Care Team Providers Name Role Phone Pastor Fatima MD Primary Care Provider Reason for Visit Auth/Cert Status Reason Specialty Diagnoses / Procedures Referred By Contact Referred To Contact Diagnoses Subarachnoid hemorrhage (HCC) Ruptured Aneurysm Subarachnoid hemorrhage (HCC) Encounter Details Date Type Department Care Team Description 12/29/2017 Anesthesia Event [facility] [address] [id number] Anesthesia Record Procedure Summary Procedure Name Responsible [...] Transport 1100 Quick Note Pt transported to [place] [address]. Vital Signs monitored and transported intubated and [...] Michael [facility] [place], [place], Direct laryngoscopy, SOCIAL SERVICES ANALYST Stylet; Single-Lumen, Cuffed; 7mm; Mac; 3; Oral; [...] by Catheter (Comment); 12/30/17; Rory Palma, Chantal Limon 1100 RN Wounds (NOT for 12/29/17; 1047; 12/29/17 1047 by 01/05/181999 by Pressure Injuries) Anterior; Groin; Rory Palma, Montez Moon RN Puncture Wound; Arterial access; 01/05/18; 1999 Peripheral IV 12/29/17; 1119; 12/29/17 1119 by 12/30/17 0352 by Provider (Placed by Shaneka Leone Kreszyn, Katelynn, Reese); R; Inner; SOCIAL SERVICES ANALYST RN Forearm; 18 G; 1; Dislodgement; 12/30/17; 0352 in this encounter Social History Tobacco Use Types Packs/Day Years Used Date Never Assessed Sex Assigned at Date Recorded Not on file as of this encounter OR Notes Anesthesia Postprocedure Evaluation - Lul Vee MD - 12/31/2017 5:54 AM DIELECTRIC TESTING MACHINE OPERATOR Post-Anesthesia Evaluation Name: Yarely Dillon [...] consented to blood products. Plan discussed with: GEORGETTE, anesthesiologist and surgeon/proceduralist. in this encounter Plan of Treatment Not on fileas of this encounter Results ANESTHESIA ARTERIAL LINE INSERTION (12/29/2017 1:11 PM) Dario PosadaGEORGETTE 12/29/20171:14 PM Anesthesia Procedure: Arterial Line Placement [...] Site dexamethasone (DECADRON) injection Given 12/29/2017 09:20 DIELECTRIC TESTING MACHINE OPERATOR 4 mg Intravenous, INTRA-PROCEDURE MED, Starting 12/29/17 at 0920, Until 12/29/17 at 1158, Nausea/Vomiting Injectable, Anesthesia Intra-op ePHEDrine 50 mg/mL 50 mg in sodium Given - New Bag 12/29/2017 09:40 DIELECTRIC TESTING MACHINE OPERATOR 10 mg chloride PF 0.9% 5 mL IV syringe 5 mL, INTRA-PROCEDURE MED(CONT), Starting 12/29/17 at 0940, Until Discontinued, Anesthesia Intra-op Bolus 12/29/2017 09:50 DIELECTRIC TESTING MACHINE OPERATOR 5 mg Bolus 12/29/2017 10:27 DIELECTRIC TESTING MACHINE OPERATOR 5 mg fentaNYL citrate PF (SUBLIMAZE) injection Given 12/29/2017 08:36 DIELECTRIC TESTING MACHINE OPERATOR 50 mcg INTRA-PROCEDURE MED, Starting 12/29/17 at 0836, Until 12/29/17 at 1158, Pain Injectable, Anesthesia Intra-op Given 12/29/2017 08:41 DIELECTRIC TESTING MACHINE OPERATOR 50 mcg lidocaine (PF) injection Given 12/29/2017 08:42 DIELECTRIC TESTING MACHINE OPERATOR 100 mg INTRA-PROCEDURE MED, Starting Thu12/29/17 at 0842, Until e 12/29/17 at 1158, Anesthesia Intra-op phenylephrine Dose/Rate Change 12/29/2017 10:19 0.6 mcg/kg/min 88.2 mL/hr (LYDIA-SYNEPHRINE) 10 mg DIELECTRIC TESTING MACHINE OPERATOR in sodium chloride 0.9% (NS) 250 mL IV drip (std conc) 250 mL, INTRA-PROCEDURE MED(CONT), Starting Thu12/29/17 at 0915, Until Discontinued, Anesthesia Intra-op Dose/Rate Change 12/29/2017 10:26 DIELECTRIC TESTING MACHINE OPERATOR 0.8 mcg/kg/min 117.6 mL/hr Dose/Rate Change 12/29/2017 10:36 DIELECTRIC TESTING MACHINE OPERATOR 0.6 mcg/kg/min 88.2 mL/hr phenylephrine in NS Injection Given 12/29/2017 09:08 DIELECTRIC TESTING MACHINE OPERATOR 100 mcg Intravenous, INTRA-PROCEDURE MED, Starting Thu12/29/17 at 0855, Until Thu12/29/17 at 1158, Symptomatic Hypotension, Anesthesia Intra-op Given 12/29/2017 10:08 DIELECTRIC TESTING MACHINE OPERATOR 50 mcg Given 12/29/2017 10:09 DIELECTRIC TESTING MACHINE OPERATOR 50 mcg propofol (DIPRIVAN) injection Given 12/29/2017 08:42 DIELECTRIC TESTING MACHINE OPERATOR 130 mg INTRA-PROCEDURE MED, Starting Thu12/29/17 at 0842, Until Thu12/29/17 at 1158, Anesthesia Intra-op Given 12/29/2017 11:00 DIELECTRIC TESTING MACHINE OPERATOR 30 mg Given 12/29/2017 11:10 DIELECTRIC TESTING MACHINE OPERATOR 40 mg remifentanil (ULTIVA) 1 mg/3 mL Given - New 12/29/2017 11:32 0.04 mcg/kg/min 4.7 mL/hr 1,000 mcg in sodium chloride Bag DIELECTRIC TESTING MACHINE OPERATOR 0.9% (NS) 20 mL Injection INTRA-PROCEDURE MED(CONT), Starting Thu12/29/17 at 1132, Until Thu12/29/17 at 1158, Anesthesia Intra-op Dose/Rate Change 12/29/2017 11:40 DIELECTRIC TESTING MACHINE OPERATOR 0.07 mcg/kg/min 8.2 mL/hr rocuronium (ZEMURON) injection Given 12/29/2017 08:43 DIELECTRIC TESTING MACHINE OPERATOR 50 mg Intravenous, INTRA-PROCEDURE MED, Starting Thu12/29/17 at 0843, Until 12/29/17 at 1158, Anesthesia Intra-op Given 12/29/2017 09:45 DIELECTRIC TESTING MACHINE OPERATOR 10 mg sodium chloride 0.9 % infusion Given - New Bag 12/29/2017 05:33 DIELECTRIC TESTING MACHINE OPERATOR 75 mL/hr 1,000 mL, Intravenous, at 75 mL/hr, CONTINUOUS, Starting 12/29/17 at 0315, Until 12/29/17 at 1737 Given - New Bag 12/29/2017 08:34 DIELECTRIC TESTING MACHINE OPERATOR sodium chloride 0.9 % infusion Given - New Bag 12/29/2017 08:41 DIELECTRIC TESTING MACHINE OPERATOR 250 mL, 250 mL, Intravenous, at 0-300 mL/hr, CONTINUOUS, Starting 12/29/17 at 0615, Until 12/30/17 at 0855, Replace negative fluid balance 1:1 to maintain net zero. Given - New Bag 12/29/2017 11:20 DIELECTRIC TESTING MACHINE OPERATOR Given - New Bag 12/30/2017 00:55 DIELECTRIC TESTING MACHINE OPERATOR 250 mL 300 mL/hr in this encounter
--- OUTSIDE RECORDS SUMMARY | 2018-03-02 16:10 | External Medical Summary | Encounter Summary ---
:1945 Author Organization [facility] Address [address] [place] [address] Care Team Providers Name Role Phone Pastor Fatima MD Primary Care Provider Encounter Details Date Type Department Care Team Description 12/29/2017 Procedure [facility] [place] [address] Social History Tobacco Use Types Packs/Day Years Used Date Never Assessed Sex Assigned at Date Recorded Not on file as of this encounter Plan of Treatment Not on fileas of this encounter Visit Diagnoses Not on filein this encounter
--- OUTSIDE RECORDS SUMMARY | 2018-03-02 16:10 | External Medical Summary | Referral Summary ---
:1945 [facility] Address [address] [place] [address] [place] [address] Care Team Providers Name Role Phone Pastor Fatima Primary Care Physician Encounter VC Date(s): 06/18/17 - 06/18/17 [facility] [place] [place] [address] [place] Discharge Diagnosis: Diabetes Discharge Diagnosis: Benign hypertension Discharge Diagnosis: Obesity (BMI 30.0-34.9) Discharge Disposition: 01-Home or Self Care Attending Physician: Pastor Fatima MD Admitting Physician: Pastor Fatima MD Vital Signs Most recent to oldest [Reference Range]: 1 Blood Pressure [90-140/60-90 mmHg] 160/90 mmHg *HI* (06/18/17 8:52 AM) Problem List Condition Effective Dates Status Health Status Informant Benign hypertension(Confirmed) Active Diabetes(Confirmed) Active Obesity (BMI 30.0-34.9)(Confirmed) Active Allergies, Adverse Reactions, Alerts Substance Reaction Severity Status acetaminophen Active codeine Active penicillin Active Medications Aldactazide 25 mg-25 mg oral tablet 1 tabs, Oral, Daily, # 90 tabs, 1 Refill(s), [facility] #[id number] Start Date: 07/21/16 Status: OrderedAldactazide 25 mg-25 mg oral tablet 1 tabs, Oral, Daily, # 90 tabs, 1 Refill(s), [facility] #[id number] Start Date: 06/18/17 Status: OrderedglyBURIDE-metFORMIN 2.5 mg-500 mg oral tablet See Instructions, TAKE ONE TABLET BY MOUTH EVERY MORNING AND TAKE ONE HALF TABLET BY MOUTH EVERY EVENING, # 135 tabs, 1 Refill(s), [facility] # [id number], TAKE ONE TABLET BY MOUTH EVERY MORNING AND TAKE ONE HALF TABLET BY MOUTH EVERY EVENING Start Date: 04/15/17 Status: Orderedmethyldopa 250 mg oral tablet See Instructions, TAKE ONE TABLET BY MOUTH TWICE A DAY, # 180 tabs, 1 Refill(s) , Pharmacy: [facility] #[id number], TAKE ONE TABLET BY MOUTH TWICE A DAY Start Date: 01/29/17 Status: Orderedmethyldopa 250 mg oral tablet 250 mg 1 tabs, Oral, BID, # 180 tabs, 1 Refill(s), Pharmacy: [facility] # [id number], 1 tabs Oral BID Start Date: 07/21/16 Status: Ordered Results No data available for this section Immunizations Given and Recorded Vaccine Date Status Refusal Reason tetanus/diphth/pertuss (Tdap) adult/adol 07/18/16 Given tetanus-diphth toxoids (Td) adult/adol 08/02/03 Recorded Procedures No data available for this section Social History Social History Type Response Smoking Status Former smoker; Type: Cigarettes Assessment and Plan Extracted from: Title: Ambulatory Patient Education Author: Pastor Fatima MD Date: Cardiovascular Heart Attack A heart attack (myocardial infarction, MA) causes damage to your heart that cannot be fixed. A heart attack can happen when a heart (coronary) artery becomes blocked or narrowed. This cuts off the blood supply and oxygen to your heart. When one or more of your coronary arteries becomes blocked, that area of your heart begins to . This causes the pain you feel during a heart attack. Heart attack pain can also occur in one part of th e body but be felt in another part of the body (referred pain). You may feel referred heart attack pain in your left arm, neck, or jaw. Pain may even be felt in the right arm. CAUSES Many conditions can cause a heart attack. These include: Atherosclerosis. This is when a fatty substance (plaque) gradually builds up in the arteries. This buildup can block or reduce the blood supply to one or more of the heart arteries. A blood clot. A blood clot can develop suddenly when plaque breaks up ( ruptures) within a heart artery. A blood clot can block the heart artery, which prevents blood flow to the heart. Severe tightening (spasm) of the heart artery. This cuts off blood flow through the artery. RISK FACTORS People at risk for heart attack usually have one or more of the following risk factors: High blood pressure (hypertension). High cholesterol. Smoking. Being male. Being overweight or obese. Older aged. A family history of heart disease. Lack of exercise. Diabetes. Stress. Drinking too much alcohol. Using illegal street drugs, such as cocaine and methamphetamines. SYMPTOMS Heart attack symptoms can vary from person to person. Symptoms depend on factors like gender and age. In both men and women, heart attack symptoms can include the following: Chest pain. This may feel like crushing, squeezing, or a feeling of pressure. Shortness of breath. Heartburn or indigestion with or without vomiting, shortness of breath, or sweating. Sudden cold sweats. Sudden light-headedness. Upper back pain. Women can have unique heart attack symptoms, such as: Unexplained feelings of nervousness or anxiety. Discomfort between the shoulder blades or upper back. Tingling in the hands and arms. Older people (of both genders) can have subtle heart attack symptoms, such as: Sweating. Shortness of breath. General tiredness or not feeling well. DIAGNOSIS Diagnosing a heart attack involves several tests. They include: An assessment of your vital signs. This includes checking your: Heart rhythm. Blood pressure. Breathing rate. Oxygen level. An ECG (electrocardiogram) to measure the electrical activity of your heart. Blood tests called cardiac markers. In these tests, blood is drawn at scheduled times to check for the specific proteins or enzymes released by damaged heart muscle. A chest X-ray. An echocardiogram to evaluate heart motion and blood flow. Coronary angiography to look at the heart arteries. TREATMENT Treatment for a heart attack may include: Medicine that breaks up or dissolves blood clots in the heart artery. Angioplasty. Cardiac stent placement. Intra-aortic balloon pump therapy (IABP). Open heart surgery (coronary artery bypass graft, CABG). HOME CARE INSTRUCTIONS Take medicines only as directed by your health care provider. You may need to take medicine after a heart attack to: Keep your blood from clotting too easily. Control your blood pressure. Lower your cholesterol. Control abnormal heart rhythms. Do not take the following medicines unless your health care provider approves: Nonsteroidal anti-inflammatory drugs (NSAIDs), such as ibuprofen, naproxen , or celecoxib. Vitamin supplements that contain vitamin A, vitamin E, or both. Hormone replacement therapy that contains estrogen with or without progestin. Make lifestyle changes as directed by your health care provider. These may include: Quitting smoking, if you smoke. Getting regular exercise. Ask your health care provider to suggest some activities that are safe for you. Eating a heart-healthy diet. A registered dietitian can help you learn healthy eating options. Maintaining a healthy weight. Managing diabetes, if necessary. Reducing stress. Limiting how much alcohol you drink. SEEK IMMEDIATE MEDICAL CARE IF: You have sudden, unexplained chest discomfort. You have sudden, unexplained discomfort in your arms, back, neck, or jaw. You have shortness of breath at any time. You suddenly start to sweat or your skin gets clammy. You feel nauseous or vomit. You suddenly feel light-headed or dizzy. Your heart begins to beat fast or feels like it is skipping beats. These symptoms may represent a serious problem that is an emergency. Do not wait to see if the symptoms will go away. Get medical help right away. Call your local emergency services (911 in the [place] Do not drive yourself to the hospital. This information is not intended to replace advice given to you by your health care provider. Make sure you discuss any questions you have with your health care provider. Document Released: 11/09/2006 Document Revised: 11/30/2015 Document Reviewed: 01/12/2015 [employer] Patient Education 2016 [employer] No follow up information was provided. Extracted from: Title: Office Visit Note Author: Pastor Fatima MD Date: 06/18/17 Assessment/Plan Benign hypertension This issue was reviewed, appears stable, and current therapy continued except as mentioned. Appropriate lab was reviewed from the most recent appropriate entry and lab was ordered if needed in the c akanksha/nursing orders, and follow up recommended generally in 90 days and no later then six months. The patient reports their blood pressure has been stable at home and is not having any significant or related problems. There has been no chest pain, chest pressure, soa/martinez. The patient had an elevated blood pressure reading and is to monitor their bp and call with a report if consistently > 140/90. Consider changing her to hctz andlisinoprilin the future. Diabetes The patient was notified for the need for regular quarterly f/u of their diabetes. Further any pertinent medication, supplies, etc were refilled. Additionally, they are to have annual eye exams, foot exams, and regular care. Lab pending. Consider changing to metformin and invokana in the future if desired. She has had a few low bgms on theglyburide. Obesity (BMI 30.0-34.9) Diet and exercise as tolerated and feasible. Consider medication when interested.
[2018-03-02] MEDS: SALINE FLUSH 10ml SYRINGE IVF PRN ×2 (16:11→19:34)
[2018-03-02] MEDS ORDERED: SALINE FLUSH 10ml SYRINGE ONE (16:47)
[2018-03-02] MEDS ORDERED: IODIXANOL 320mg/ml 100ml INJECTION IV ONE (16:47)
--- NOTE | 2018-03-02 16:51 | XRay Report ---
Indication: pain PROCEDURE: XR chest 1V: Encounter: Initial Comparison: 12/28/2017 Findings: Heart size is normal. The lungs are clear. There is no focal opacity to suggest atelectasis or pneumonia. No mediastinal or hilar adenopathy. No pleural effusion. There is no significant tortuosity of the descending thoracic aorta. There is mild degenerative disc disease of the thoracic spine. IMPRESSION: No acute process. .
[2018-03-02] MEDS ORDERED: GLUCOSE ORAL GEL 40% 37.5gm PO PRN (18:40)
[2018-03-02] MEDS ORDERED: ONDANSETRON 4 MG/2 ML INJECTION IVP PRN (18:40)
[2018-03-02] MEDS ORDERED: DEXTROSE 50% SYRINGE 50ml (1 AMP) IVP PRN (18:40)
[2018-03-02] MEDS ORDERED: INSULIN REGULAR, HUMAN 100 UNIT/ML INJECTION SQ PRN (18:40)
[2018-03-02] MEDS ORDERED: BISACODYL 10 MG SUPPOSITORY RECTALLY PRN (18:40)
--- NOTE | 2018-03-02 18:43 | History & Physical Report ---
History of Present Illness Date: 03/02/18 Chief complaint: Right eye ptosis HPI: Yarely is a 72 year old female who unfortunately has had a complex medical history over the past 3 months. On 12/28/17 she had a syncopal episode while at home in her shower. She was brought to [facility] emergency room where a CT scan of the brain revealed acute subarachnoid hemorrhage. At that time, patient was transferred to [facility] under the care of Dr. 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 Unfortunately, she experienced significant functional decline following this procedure and hospitalization and was admitted to the inpatient rehabilitation unit at [facility] on 01/13/18. Her function and strength improved during her stay and she was discharged home on 01/19/18 independently with her . Since that time she has done well . As she has been following with her primary care provider, Dr. Fatima last week at which time she was "cleared" to follow-up in 6 months. Last on 02/25/18 she noticed some mild ptosis of the right eyelid, however, was still able to hold it open without any visual changes. She has noticed that her eyelid continues to worsen and she was seen by her transition program manager, Dr. James today. Given her complex intracranial history, he directed her to the emergency room for acute evaluation. CT angiograph of the head and neck with and without contrast revealed mild right proximal ICA stenosis with moderate to severe proximal left subclavian arterial stenosis, no evidence of acute intracranial hemorrhage. Basic labs were obtained, WBC count 11.7. Electrolytes were normal, renal function slightly elevated at 39 and 1.5, glucose 285, however patient is a known diabetic. call specialist neurologist, Dr. Irwin was consulted while in the emergency room and recommended MRI for more specific evaluation. The hospitalist services within contacted and accepted patient for outpatient admission for further evaluation and workup. Review of Systems All systems PM: 10-point ROS was reviewed, no additional remarkable complaints except - EENMT Eyes: Present: as per HPI, other (Right eye Ptosis) Past Medical History Medical History Updates: Ruptured anterior communicating artery aneurysm 2017. Subarachnoid hemorrhage-12/28/17. Hypertension. Type II diabetes. Parkinson's Surgical History: T&A. Craniotomy for aneurysm clipping 12/29/2017 Dr. Schwartz at [facility] Family History Updates: Father- at age 55 from a stroke. Mother also in her 70s from a stroke. Brother- hypertension and diabetes Family History: As Above - Social History Smoking status: Former smoker (quit 53 years ago) Substance use type: does not use Alcohol intake: current Alcohol intake frequency: other (weekly) Housing: house Household members: spouse Current residence: Apartment/Private Home Social history: Primary care provider, Dr. Fatima Medications Home Medications Medication Instructions Recorded Confirmed Type Glyburide/Metformin HCl 0.5 tab PO WS 03/02/18 03/02/18 History [Glyburide-Metformin 2.5-500 mg] Glyburide/Metformin HCl 1 tab PO WB 03/02/18 03/02/18 History [Glyburide-Metformin 2.5-500 mg] Methyldopa [Aldomet] 250 mg PO PM 03/02/18 03/02/18 History Spironolact/Hydrochlorothiazid 1 tab PO QAM 03/02/18 03/02/18 History [Aldactazide 25-25 Tablet] Allergies Allergy/AdvReac Type Severity Reaction Status Date / Time banana Allergy Difficulty Verified 03/02/18 15:47 Breathing lebron Allergy Difficulty Verified 03/02/18 15:47 Breathing chocolate flavor Allergy Difficulty Verified 03/02/18 15:47 Breathing codeine Allergy Verified 03/02/18 15:35 Penicillins Allergy Verified 03/02/18 15:35 spinach Allergy Difficulty Verified 03/02/18 15:47 Breathing acetaminophen [From Tylenol] AdvReac Diarrhea Verified 03/02/18 15:47 Exam Vital Signs: Temperature 97.6 F 03/02/18 18:05 Pulse Rate 77 03/02/18 18:05 Respiratory Rate 18 03/02/18 18:05 Blood Pressure 139/67 03/02/18 18:05 Pulse Oximetry 98 03/02/18 18:05 Height/Weight/BMI: Height 1.7 m - Constitutional Present: no acute distress, well nourished, well developed - Routine HEENT Exam ENT: Present: mucous membranes moist, dentition normal - Detailed Eye Exam Eyelids: Left normal inspection (Right eyelid with ptosis) Pupils: Left regular, round, Left reactive, Right dilated (sluggish to respond) Sclerae/Conjunctivae: Bilateral normal inspection - Routine Respiratory Exam Present: CTA bilaterally. Absent: wheezes - Routine Cardiovascular Exam Present: RRR, S1, S2. Absent: murmur - Routine Abdominal Exam Present: soft, normoactive bowel sounds, non distended. Absent: tenderness - Routine Extremities Exam Present: pulses intact - Routine Back/Spine/Pelvis Exam Back/Spine: Present: full ROM - Routine Skin Exam Present: intact, dry, warm - Routine Neurological Exam Present: alert, oriented X3, moving all extremities, vision grossly intact, hearing grossly intact, normal speech. Absent: sensory deficit, motor deficit CN 4-12 intact. ? 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 Lynch for right eye proptosis with probable 3rd cranial nerve palsy Monitor patient on cardiac telemetry. Repeat serial troponin, and obtain echocardiogram for further evaluation. Tomorrow morning, obtain MR a of head for further neurovascular evaluation. Consult placed with Dr. Irwin for further recommendations. Will monitor Accu-Cheks, patient may have carb consistent diet. Normal saline at 125 ML per hour for gentle hydration. Recheck CBC, BMP and troponin tomorrow morning to follow blood counts, renal function, electrolytes and cardiac enzymes. SCDs to bilateral lower extremity for DVT prophylaxis. Consult placed to PT and OT to evaluate patients strength and safety. At time of admission home medications have not yet been reconciled accurately. We are awaiting patient's to bring home medications as there are multiple lists with discrepancies. Will discuss further orders and plan of care with attending, Dr. Lynch At time of discharge medical care will return to primary care provider, Akua. DVT Prophylaxis: SCD's Resuscitation Status: Full Code - Time spent with patient Time with patient PN: 50 minutes - Physician Narrative Physician: Darien Lynch MD Narrative: Date: 03/02/18 Time: 1920 Have independently interviewed and examined pt. Chart reviewed. Case discussed with ED physician and my TYPE CASTING MACHINE OPERATOR. Care plan developed with my supervision; agree with above. Present to ED at urging of her eye doctor due to difficulty opening her right eye. Symptoms onset on 02/25 and have been progressive. Not having dizziness or nausea. Able to move arms/legs well. Breathing stable. No chest pain or pressure. Evaluated in ED. No acute bleeding noted. Neurology consulted and recommends further evaluation - MRI of brain to exclude stroke. Patient has had recent (Dec this year) cerebral hemorrhage and is not on ASA therapy. Lungs: clear bilaterally CV: regular AB: soft nt/nd EXT: +2 BLE Plan: OBS. MRI brain. Neuro consult. PT/OT eval. With slight elevation of creatinine, will start low flow IVF. Recheck Lab in am. Check UA due to leukocytosis. Discussed code status - request full resuscitation. Care to return to Dr Fatima at time of discharge from [facility]. Hospital Course Summary Disclaimer: The visit summary below is not to be considered part of the above Progress Note. 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 Lynch for right eye proptosis with probable 3rd cranial nerve palsy. Monitor patient on cardiac telemetry. Repeat serial troponin, and obtain echocardiogram for further evaluation. Tomorrow morning, obtain MR a of head for further neurovascular evaluation. Consult placed with Dr. Irwin for further recommendations. Will monitor Accu-Cheks, patient may have carb consistent diet. Normal saline at 125 ML per hour for gentle hydration; creatinine showing increase from prior hospitalization. Recheck CBC, BMP and troponin tomorrow morning to follow blood counts, renal function, electrolytes and cardiac enzymes. SCDs to bilateral lower extremity for DVT prophylaxis. Consult placed to PT and OT to evaluate patients strength and safety. At time of admission home medications have not yet been reconciled accurately. We are awaiting patient's to bring home medications as there are multiple lists with discrepancies. Discussed code status with patient. Request full resuscitation. Order written. At time of discharge medical care will return to primary care provider, Akua.
[2018-03-02] MEDS ORDERED: ACETAMINOPHEN 325 MG TABLET PO PRN (19:19)
[2018-03-02] MEDS ORDERED: HYDROCODONE/APAP 5mg/325mg TABLET PO PRN (19:20)
[2018-03-02] MEDS: NS 1,000 ML IV SCH (19:33)
[2018-03-02 20:16] VITALS: BMI 31.4
[2018-03-02] MEDS ORDERED: METHYLDOPA 250 MG TABLET PO SCH (21:00)
--- NOTE | 2018-03-02 22:25 | CT Scan Report ---
EXAM: CT angio head/neck HISTORY: CN Palsy . Patient has difficulty keeping right eye open for the past 6 days. Patient has a history of intracranial aneurysm repair and intracranial hemorrhage from a fall several weeks ago. COMPARISON: Noncontrast CT scan of the head performed 12/28/[address] scan of the cervical spine dated 12/28/2017 . TECHNIQUE: A routine CT scan of the head was performed without intravenous contrast. This was followed by CT angiogram of the head and neck. 80 cc of Visipaque 320 was administered for the examination. Coronal and sagittal reconstruction imaging was performed as well as 3-D reconstruction mid imaging. The current CT scan was performed using radiation dose reduction techniques. FINDINGS: The noncontrast CT scan of the head shows changes of left interval frontal temporal craniotomy. Aneurysm clips are seen in the region of the [place]. The lateral ventricles are midline and demonstrate mild ventriculomegaly. The cortical sulci are not well delineated nor is the zarate-white matter junction however this is likely related to technique. There is no evidence of intracranial hemorrhage and no intra or extra-axial mass or fluid collection is seen. Brainstem posterior fossa show no obvious abnormalities. Visualized paranasal sinuses and mastoid air cells appear clear. CT head angio of the head: The common carotid arteries appear mildly tortuous but are normal caliber without significant plaque or stenosis to the level of the carotid artery bifurcations bilaterally. Aneurysm clips are in the expected location of the anterior cerebral arteries. There is good opacification of the major arterial structures of the anterior and posterior circulation of the [place] showing no evidence of aneurysmal dilatation or focal narrowing. CT angiogram of the neck: The common carotid arteries appeared of normal caliber throughout their visualized course mildly tortuous without significant plaque or hemodynamic significant narrowing by NASCET criteria. No significant plaque formation is seen at the right carotid artery bifurcation. There is mild plaque formation seen at the left carotid artery bifurcation without hemodynamic significant narrowing by NASCET criteria. There is mild plaque formation seen in the proximal right ICA without hemodynamic significant narrowing. The mid and distal segments of the extracranial right ICA are tortuous showing no hemodynamic significant narrowing by NASCET criteria. There is no significant plaque formation in the proximal, mid and distal segments of the left ICA which appears tortuous but shows no hemodynamic significant narrowing by NASCET criteria. The right vertebral artery is diminutive but appears patent throughout its course showing no obvious calcific plaque, dissection or focal stenosis. There is a dominant left vertebral artery which appears patent throughout its course to the origin of the basilar artery. The right subclavian artery is patent throughout its course. There is moderate to severe plaque formation in the proximal left subclavian artery suggesting hemodynamic significant narrowing at its origin. Mild to moderate plaque formation is seen in the visualized segment of the thoracic aorta. There is moderate degenerative cervical spondylosis. Limited imaging through the lung apices shows of bullous emphysematous changes and subcutaneous pleural bleb formation. There is gaseous distention of the proximal esophagus likely on the basis of gastroesophageal reflux. IMPRESSION: 1. The evaluation of the noncontrast CT scan of the head is limited due to technique but shows no obvious acute intracranial process. There is mild ventriculomegaly. There are postsurgical changes with aneurysm clips in the region of the anterior cerebral arteries. There are post craniotomy changes in the left frontal temporal calvarium. 2. The CT angiogram of the head, other than the aneurysm clips in the region of the anterior cerebral arteries, shows a satisfactory appearance of the [place] without aneurysm or focal narrowing. 3. The CT angiogram of the neck shows mild plaque formation the proximal right ICA and mild plaque formation in the left carotid artery bifurcation without hemodynamic significant narrowing by NASCET criteria. 4. Moderate to severe left subclavian artery stenosis at its origin due to moderate to severe arteriosclerotic plaque formation. 5. Dominant left vertebral artery with atretic appearance of the right vertebral artery which may be congenital but the differential considerations include spasm and arteriosclerotic vascular disease. 5. Mild to moderate plaque formation is seen in the visualized thoracic aorta. .
[2018-03-03] MEDS: NS 1,000 ML IV SCH ×2 (01:43→05:40)
[2018-03-03] MEDS ORDERED: NS with KCL 20 mEq 1,000 ML IV SCH ×2 (06:15→09:30)
[2018-03-03] MEDS: MAGNESIUM SULFATE 1gm PREMIX 1 GM/100 ML BAG IV SCH ×2 (06:30→09:54)
[2018-03-03] MEDS ORDERED: METHYLDOPA 250 MG TABLET PO SCH (09:00)
[2018-03-03] MEDS ORDERED: MAGNESIUM OXIDE 400 MG TABLET PO ONE (09:30)
[2018-03-03 12:14] VITALS: BP 138/72; RESP 16; TEMP 98.2; O2SAT 99
[2018-03-03] MEDS ORDERED: SALINE FLUSH 10ml SYRINGE ONE (12:37)
--- NOTE | 2018-03-03 14:17 | Progress Note ---
- Date 03/03/18 Subjective: Yarely is seen this afternoon following her MRI. She verbalizes being worn out and "tired of this". She denies having any changes in her ptosis or vision changes. She reports that she is able to see clear if she opens the right eyelid. No other deficits noted. Telemetry noted to have frequent PVCs. BP 138/ 72. Objective Vital signs: Temperature 98.2 F 03/03/18 12:00 Pulse Rate 60 03/03/18 12:00 Respiratory Rate 16 03/03/18 12:00 Blood Pressure 138/72 03/03/18 12:00 Pulse Oximetry 99 03/03/18 12:00 Rhythm: Normal Sinus Rhythm, Premature Ventricular Contractions Height/Weight/BMI: Height 1.7 m Weight 92 kg Body Mass Index 31.4 - Constitutional Present: no acute distress, well nourished, well developed - Routine HEENT Exam ENT: Present: mucous membranes moist, dentition normal Comments: Right eyelid ptosis - Routine Respiratory Exam Present: CTA bilaterally. Absent: wheezes - Routine Cardiovascular Exam Present: RRR, S1, S2. Absent: murmur - Routine Abdominal Exam Present: soft, normoactive bowel sounds, non distended. Absent: tenderness - Routine Extremities Exam Present: full ROM - Routine Back/Spine/Pelvis Exam Back/Spine: Present: full ROM - Routine Skin Exam Present: intact, dry, warm - Routine Neurological Exam Present: alert, oriented X3, moving all extremities, vision grossly intact, hearing grossly intact, normal speech. Absent: sensory deficit, motor deficit CN 3 palsy noted - Routine Lymphatic Exam Lymphatic: Absent: adenopathy - Routine Psychiatric Exam Present: normal affect, normal thought process, cooperative Results - Labs CBC & Chem 7: 03/03/18 05:09 03/03/18 05:09 Assessment and Plan (1) Cranial nerve III palsy Current visit: Yes Status: Acute Assessment and Plan: Impression Right 3rd cranial nerve palsy - No evidence of acute ischemic event Right eyelid ptosis Hyperglycemia- POA Leukocytosis - resolved Hx of Subarachnoid hemorrhage and status post craniotomy (12/29/17) Type 2 diabetes Hypertension Parkinson's disease Elevated creatinine (POA) - resolved Hypokalemia (Not POA) Hypomagnesemia (Not POA) Plan MRA and MRI done this afternoon and read is pending ECHO being done today Appreciate consultation by Dr Irwin Continue to monitor blood sugars Telemetry does revel some PVC's. Magnesium was low and replaced IV. Consult placed to PT and OT to evaluate patients strength and safety. Case discussed with attending Numerous phone calls made to Dr Oumar Mercer's office in to determine if cranial clips were MRI safe. Syed MRI not showing acute ischemic event. Can discharge to home. Dr Irwin recommends Prednisone 30mg daily for 1 week, then 20mg daily for 1 week, then 10mg daily for 1 week. Will have patient follow up with Dr Fatima in [address] Irwin in 2 weeks. See orders for details. DVT Prophylaxis: SCD's Resuscitation Status: Full Code - Time spent with patient Time with patient PN: 35 minutes - Physician Narrative Physician: Darien Lynch MD Narrative: Date: 03/03/18 Time: 1654 Have independently interviewed and examined pt. Chart reviewed. Case discussed with CM, Dr Irwin, Radiology, and my CHIEF COOK. Care plan developed with my supervision; agree with above. Little change to eye. Not noticing other neurological problems. Breathing well. No nausea. Lungs: clear CV: regular AB: soft nt/nd Neuro: no focal weakness to upper/ lower ext Assessement: Third nerve palsy - no evidence of CVA Plan: Can discharge to home. Dr Irwin recommends Prednisone 30mg daily for 1 week, then 20mg daily for 1 week, then 10mg daily for 1 week. Will have patient follow up with Dr Fatima in [address] Irwin in 2 weeks. See orders for details. Hospital Course Summary Disclaimer: The visit summary below is not to be considered part of the above Progress Note. 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 Lynch for right eye proptosis with probable 3rd cranial nerve palsy. Monitor patient on cardiac telemetry. Repeat serial troponin, and obtain echocardiogram for further evaluation. Tomorrow morning, obtain MR a of head for further neurovascular evaluation. Consult placed with Dr. Irwin for further recommendations. Will monitor Accu-Cheks, patient may have carb consistent diet. Normal saline at 125 ML per hour for gentle hydration; creatinine showing increase from prior hospitalization. Recheck CBC, BMP and troponin tomorrow morning to follow blood counts, renal function, electrolytes and cardiac enzymes. SCDs to bilateral lower extremity for DVT prophylaxis. Consult placed to PT and OT to evaluate patients strength and safety. At time of admission home medications have not yet been reconciled accurately. We are awaiting patient's to bring home medications as there are multiple lists with discrepancies. Discussed code status with patient. Request full resuscitation. Order written. At time of discharge medical care will return to primary care provider, Akua. 03/03 MRA and MRI done this afternoon and read is pending ECHO being done today Appreciate consultation by Dr Irwin Continue to monitor blood sugars Telemetry does revel some PVC's. Magnesium was low and replaced IV. Consult placed to PT and OT to evaluate patients strength and safety. MRI not showing acute ischemic event. Can discharge to home. Dr Irwin recommends Prednisone 30mg daily for 1 week, then 20mg daily for 1 week, then 10mg daily for 1 week. Will have patient follow up with Dr Fatima in [address] Irwin in 2 weeks. See orders for details.
--- NOTE | 2018-03-03 14:50 | Consultation ---
DATE OF CONSULTATION 03/03/[address] Lynch The patient's chief complaint is right third nerve palsy. HISTORY OF PRESENT ILLNESS The patient is a 72-year-old female with history of diabetes mellitus, hypertension and a cerebral aneurysm clipped few years ago. This has affected the anterior communicating arteries most likely. The patient presented to the emergency room with two days' symptoms of right ptosis, right eye movement problem associated with double vision and lacrimation problem. She has had no other facial weakness or numbness and no other body weakness or numbness. The patient denies having similar problems in the past. Her diabetes has been partially controlled with medication. She has had elevated blood pressure on admission and this continues to spike occasionally. Her last glucose level was 95. Prior to that it was 285 on admission. Clinically, the patient is stable overall. She has had no headache and no other systemic problems. PHYSICAL EXAMINATION The patient was awake, alert, oriented x 3. Pupils were asymmetrical. It was larger on the right, about 3.5 mm, and on the left 2 to 2.5 mm. She has right- sided ptosis covering 90% of her sight. She also has abnormal eye movement on the right. The patient is unable to move her right eye upward and medially. Her facial motor and sensory were otherwise symmetrical. The patient was still able to move her forehead up and down. She had no other facial weakness or numbness. On her motor examination, the upper and lower extremities was 5-/5. Sensory examination was symmetrical for light touch and pinprick. Deep tendon reflexes were 2-/4. Plantar reflexes were equivocal bilaterally. Coordination for [id number] was slightly slower on the left compared to the right. Her gait was slow and steady. ASSESSMENT 1. Right third nerve palsy associated with right ptosis, eye movement abnormalities and enlarged pupil. Those symptoms can be related to a peripheral third nerve palsy versus a stroke affecting the mid brain area. The patient had a CT angiogram of the brain and neck yesterday which failed to show any new aneurysm or significant vascular abnormalities. The patient's old clip and aneurysm were stable. PLAN 1. Obtain an MRI of the brain and MRA of the brain to rule out acute ischemic stroke and aneurysm changes. 2. If the MRI of the brain is negative, consider treating the patient for possible diabetic third nerve palsy. This can be treated with steroid titration starting at 30 mg p.o. q.d. and going down to 10 mg p.o. q.d. over the period of a month. 3. Optimize treatment for hypertension and avoid spiking. 4. Monitor glucose level closely and adjust medication accordingly. MTDD
[2018-03-03 17:16] VITALS: PULSE 82
[2018-03-03] MEDS ORDERED: PredniSONE 10 MG TABLET PO ONE (17:21)
--- NOTE | 2018-03-03 19:21 | Magnetic Resonance Report ---
EXAM: MR head/brain/ang head wo/w HISTORY: ? mid brain stroke COMPARISON: CT angiogram of the head performed 03/03/2018. Multislice/multisequence imaging of the brain was performed in the sagittal, axial and coronal planes. Imaging was performed before and following intravenous Gadolinium administration. 18 cc of ProHance was administered intravenously for the exam. Routine MRA imaging of the brain was also performed. FINDINGS: The cortical sulci are well-maintained. The ventricles are midline and appear within normal limits in size and configuration. The lateral ventricles are midline without mass effect or midline shift. Postsurgical changes are seen in the region of the [place] with artifact associated with aneurysm clipping. There are also postsurgical changes in the left frontal lobe with scattered signal void changes about the [place] and peripherally in the left frontal lobe likely related to chronic blood products of a postsurgical nature. Also again visualized are changes of a left frontal temporal craniotomy. There is periventricular deep white matter signal hyperintensity on the FLAIR and T2-weighted images particularly at the level of both frontal horns is consistent with chronic small vessel ischemic change. There are also changes of the gliosis in the left frontal lobe. There is no evidence of an acute ischemic event or restricted diffusion on the diffusion weighted images. Normal monique/white matter differentiation is preserved. The brain stem and posterior fossa appear intact. No extra-axial masses or fluid collections are seen. The structures of the skull base appear of normal signal intensity and contour. The visualized paranasal sinuses appear unremarkable. The orbits appear intact. The mastoid air cells appear clear. The post-IV gadolinium images did not demonstrate any abnormal areas of enhancement. The MRA of the brain is limited due to artifact associated with aneurysm clipping in the region of the anterior cerebral arteries. The A1 segment of the right anterior cerebral artery is not visualized. The remaining arterial contributories of the anterior and posterior circulation of the [place] appear intact showing no discrete focal narrowing, aneurysmal dilatation or AV malformation. IMPRESSION: 1. No CT evidence of acute intracranial ischemic event or enhancing lesions. 2. Postsurgical changes of aneurysm clipping in the region of the [place]. There are associated changes of left frontal temporal craniotomy and left frontal lobe signal void associated changes with chronic blood products that are likely postsurgical in etiology. 3. Periventricular deep white matter chronic small vessel ischemic change and changes of gliosis/post surgical scarring in the left frontal lobe. 4.T he MRA of the brain is limited due to artifact associated with aneurysm clipping in the region of the anterior cerebral arteries. The A1 segment of the right anterior cerebral artery is not visualized which may be artifactual or may be due to occlusion. The remaining arterial contributories of the anterior and posterior circulation of the [place] appear intact showing no discrete focal narrowing, aneurysmal dilatation or AV malformation. .
--- NOTE | 2018-03-04 09:35 | Discharge Summary ---
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 - No evidence of acute ischemic event Associated conditions and complications Right eyelid ptosis Hyperglycemia- POA Leukocytosis - resolved Hx of Subarachnoid hemorrhage and status post craniotomy (12/29/17) Type 2 diabetes Hypertension Parkinson's disease Elevated creatinine (POA) - resolved Hypokalemia (Not POA) Hypomagnesemia (Not POA) - Laboratory Labs: Admit Lab 03/02/18 16:10 WBC 11.7 H Hgb 13.3 Hct 38.1 MCV 86.6 Plt Count 207 Neut % (Auto) 73.9 H Lymph % (Auto) 20.4 L Mcdonald % (Auto) 5.0 Eos % (Auto) 0.3 Baso % (Auto) 0.1 Admit Lab 03/02/18 16:10 Sodium 137 Potassium 3.9 Chloride 98 Carbon Dioxide 21 L Anion Gap 18 H BUN 39.0 H Creatinine 1.5 H GFR Calculation 34 BUN/Creatinine Ratio 26 Glucose 285 H Calculated Osmolality 283 H Calcium 9.8 Total Bilirubin 0.40 AST 18 ALT 20 Alkaline Phosphatase 55 Troponin I 0.041 Total Protein 7.0 Albumin 4.3 Globulin 2.7 Albumin/Globulin Ratio 1.6 03/03/18 05:09 03/03/18 05:09 - Radiology Radiology: Date of Exam: 03/02/18 Type of Exam: XR chest 1V Findings: Heart size is normal. The lungs are clear. There is no focal opacity to suggest atelectasis or pneumonia. No mediastinal or hilar adenopathy. No pleural effusion. There is no significant tortuosity of the descending thoracic aorta. There is mild degenerative disc disease of the thoracic spine. IMPRESSION: No acute process. Date of Exam: 03/02/18 Type of Exam: CT angio head/neck FINDINGS: The noncontrast CT scan of the head shows changes of left interval frontal temporal craniotomy. Aneurysm clips are seen in the region of the [place]. The lateral ventricles are midline and demonstrate mild ventriculomegaly. The cortical sulci are not well delineated nor is the zarate-white matter junction however this is likely related to technique. There is no evidence of intracranial hemorrhage and no intra or extra-axial mass or fluid collection is seen. Brainstem posterior fossa show no obvious abnormalities. Visualized paranasal sinuses and mastoid air cells appear clear. CT head angio of the head: The common carotid arteries appear mildly tortuous but are normal caliber without significant plaque or stenosis to the level of the carotid artery bifurcations bilaterally. Aneurysm clips are in the expected location of the anterior cerebral arteries. There is good opacification of the major arterial structures of the anterior and posterior circulation of the [place] showing no evidence of aneurysmal dilatation or focal narrowing. CT angiogram of the neck: The common carotid arteries appeared of normal caliber throughout their visualized course mildly tortuous without significant plaque or hemodynamic significant narrowing by NASCET criteria. No significant plaque formation is seen at the right carotid artery bifurcation. There is mild plaque formation seen at the left carotid artery bifurcation without hemodynamic significant narrowing by NASCET criteria. There is mild plaque formation seen in the proximal right ICA without hemodynamic significant narrowing. The mid and distal segments of the extracranial right ICA are tortuous showing no hemodynamic significant narrowing by NASCET criteria. There is no significant plaque formation in the proximal, mid and distal segments of the left ICA which appears tortuous but shows no hemodynamic significant narrowing by NASCET criteria. The right vertebral artery is diminutive but appears patent throughout its course showing no obvious calcific plaque, dissection or focal stenosis. There is a dominant left vertebral artery which appears patent throughout its course to the origin of the basilar artery. The right subclavian artery is patent throughout its course. There is moderate to severe plaque formation in the proximal left subclavian artery suggesting hemodynamic significant narrowing at its origin. Mild to moderate plaque formation is seen in the visualized segment of the thoracic aorta. There is moderate degenerative cervical spondylosis. Limited imaging through the lung apices shows of bullous emphysematous changes and subcutaneous pleural bleb formation. There is gaseous distention of the proximal esophagus likely on the basis of gastroesophageal reflux. IMPRESSION: 1. The evaluation of the noncontrast CT scan of the head is limited due to technique but shows no obvious acute intracranial process. There is mild ventriculomegaly. There are postsurgical changes with aneurysm clips in the region of the anterior cerebral arteries. There are post craniotomy changes in the left frontal temporal calvarium. 2. The CT angiogram of the head, other than the aneurysm clips in the region of the anterior cerebral arteries, shows a satisfactory appearance of the [place] without aneurysm or focal narrowing. 3. The CT angiogram of the neck shows mild plaque formation the proximal right ICA and mild plaque formation in the left carotid artery bifurcation without hemodynamic significant narrowing by NASCET criteria. 4. Moderate to severe left subclavian artery stenosis at its origin due to moderate to severe arteriosclerotic plaque formation. 5. Dominant left vertebral artery with atretic appearance of the right vertebral artery which may be congenital but the differential considerations include spasm and arteriosclerotic vascular disease. 5. Mild to moderate plaque formation is seen in the visualized thoracic aorta. Date of Exam: 03/03/18 Type of Exam: MR head/brain/ang head wo/w FINDINGS: The cortical sulci are well-maintained. The ventricles are midline and appear within normal limits in size and configuration. The lateral ventricles are midline without mass effect or midline shift. Postsurgical changes are seen in the region of the [place] with artifact associated with aneurysm clipping. There are also postsurgical changes in the left frontal lobe with scattered signal void changes about the [place] and peripherally in the left frontal lobe likely related to chronic blood products of a postsurgical nature. Also again visualized are changes of a left frontal temporal craniotomy. There is periventricular deep white matter signal hyperintensity on the FLAIR and T2-weighted images particularly at the level of both frontal horns is consistent with chronic small vessel ischemic change. There are also changes of the gliosis in the left frontal lobe. There is no evidence of an acute ischemic event or restricted diffusion on the diffusion weighted images. Normal monique/white matter differentiation is preserved. The brain stem and posterior fossa appear intact. No extra-axial masses or fluid collections are seen. The structures of the skull base appear of normal signal intensity and contour. The visualized paranasal sinuses appear unremarkable. The orbits appear intact. The mastoid air cells appear clear. The post-IV gadolinium images did not demonstrate any abnormal areas of enhancement. The MRA of the brain is limited due to artifact associated with aneurysm clipping in the region of the anterior cerebral arteries. The A1 segment of the right anterior cerebral artery is not visualized. The remaining arterial contributories of the anterior and posterior circulation of the [place] appear intact showing no discrete focal narrowing, aneurysmal dilatation or AV malformation. IMPRESSION: 1. No CT evidence of acute intracranial ischemic event or enhancing lesions. 2. Postsurgical changes of aneurysm clipping in the region of the [place]. There are associated changes of left frontal temporal craniotomy and left frontal lobe signal void associated changes with chronic blood products that are likely postsurgical in etiology. 3. Periventricular deep white matter chronic small vessel ischemic change and changes of gliosis/post surgical scarring in the left frontal lobe. 4.The MRA of the brain is limited due to artifact associated with aneurysm clipping in the region of the anterior cerebral arteries. The A1 segment of the right anterior cerebral artery is not visualized which may be artifactual or may be due to occlusion. The remaining arterial contributories of the anterior and posterior circulation of the [place] appear intact showing no discrete focal narrowing, aneurysmal dilatation or AV malformation. History of Present Illness HPI: Yarely is a 72 year old female who unfortunately has had a complex medical history over the past 3 months. On 12/28/17 she had a syncopal episode while at home in her shower. She was brought to [facility] emergency room where a CT scan of the brain revealed acute subarachnoid hemorrhage. At that time, patient was transferred to [facility] under the care of Dr. 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 Unfortunately, she experienced significant functional decline following this procedure and hospitalization and was admitted to the inpatient rehabilitation unit at [facility] on 01/13/18. Her function and strength improved during her stay and she was discharged home on 01/19/18 independently with her . Since that time she has done well . As she has been following with her primary care provider, Dr. Ramon last week at which time she was "cleared" to follow-up in 6 months. Last on 02/25/18 she noticed some mild ptosis of the right eyelid, however, was still able to hold it open without any visual changes. She has noticed that her eyelid continues to worsen and she was seen by her wire stripping machine operator, Dr. James today. Given her complex intracranial history, he directed her to the emergency room for acute evaluation. CT angiograph of the head and neck with and without contrast revealed mild right proximal ICA stenosis with moderate to severe proximal left subclavian arterial stenosis, no evidence of acute intracranial hemorrhage. Basic labs were obtained, WBC count 11.7. Electrolytes were normal, renal function slightly elevated at 39 and 1.5, glucose 285, however patient is a known diabetic. order desk caller neurologist, Dr. Irwin was consulted while in the emergency room and recommended MRI for more specific evaluation. The hospitalist services within contacted and accepted patient for outpatient admission for further evaluation and workup. For complete details of the H&P refer to that document. Objective Vital signs: Temperature 98.2 F 03/03/18 12:00 Pulse Rate 82 03/03/18 15:19 Respiratory Rate 16 03/03/18 12:00 Blood Pressure 138/72 03/03/18 12:00 Pulse Oximetry 99 03/03/18 12:00 Rhythm: Normal Sinus Rhythm, Premature Ventricular Contractions Height/Weight/BMI: Height 1.7 m Weight 92 kg Body Mass Index 31.4 Hospital Course This is a general summary of the patient's hospital course. For more details refer to the complete medical record. Hospital course: Impression Probable 3rd cranial nerve palsy Right eyelid ptosis Hyperglycemia- POA Hx of Subarachnoid hemorrhage and status post craniotomy (12/29/17) Type 2 diabetes Hypertension Parkinson's disease 03/02- Admit Admit to outpatient observation under the care of Dr. Lynch for right eye proptosis with probable 3rd cranial nerve palsy. Monitor patient on cardiac telemetry. Repeat serial troponin, and obtain echocardiogram for further evaluation. Tomorrow morning, obtain MR a of head for further neurovascular evaluation. Consult placed with Dr. Irwin for further recommendations. Will monitor Accu-Cheks, patient may have carb consistent diet. Normal saline at 125 ML per hour for gentle hydration; creatinine showing increase from prior hospitalization. Recheck CBC, BMP and troponin tomorrow morning to follow blood counts, renal function, electrolytes and cardiac enzymes. SCDs to bilateral lower extremity for DVT prophylaxis. Consult placed to PT and OT to evaluate patients strength and safety. At time of admission home medications have not yet been reconciled accurately. We are awaiting patient's to bring home medications as there are multiple lists with discrepancies. Discussed code status with patient. Request full resuscitation. Order written. At time of discharge medical care will return to primary care provider, [place]. 03/03 MRA and MRI done this afternoon and read is pending ECHO being done today Appreciate consultation by Dr Irwin Continue to monitor blood sugars Telemetry does revel some PVC's. Magnesium was low and replaced IV. Consult placed to PT and OT to evaluate patients strength and safety. MRI not showing acute ischemic event. Can discharge to home. Dr Irwin recommends Prednisone 30mg daily for 1 week, then 20mg daily for 1 week, then 10mg daily for 1 week. Will have patient follow up with Dr Ramon in [address] Irwin in 2 weeks. See orders for details. Time spent with patient: discharge greater than 30 minutes Resuscitation Status: Full Code Discharge Plan - Discharge Disposition Disposition: Discharged Home, Self-Care *Condition: Stable Reason For Visit (Visit label in EMR): eye dysfunction - Discharge Medications *Discharge Medications: New predniSONE [Prednisone] 30 mg PO WB #39 tab Continue Glyburide/Metformin HCl [Glyburide-Metformin 2.5-500 mg] 1 tab PO WB Glyburide/Metformin HCl [Glyburide-Metformin 2.5-500 mg] 0.5 tab PO WS Methyldopa [Aldomet] 250 mg PO PM Spironolact/Hydrochlorothiazid [Aldactazide 25-25 Tablet] 1 tab PO QAM - Discharge Packet/Instructions *Diet: 2000 KCAL ADA low sodium *Activity: Activities as prior to admission *Pain Management/Treatment: Continue prior home pain medications *Wound Care: N/A Additional Instructions: Use Prednisone in decreasing dose. Take 3 tablets once a day with breakfast for 6 days, then 2 tablets once a day for 7 days, then 1 table once a day for 7 days, then stop. You may restart your Diabetic ( Glyburide/Metformin) medication on Monday 03/05. We need to hold this medication until then due to IV contrast. *Expected Signs/Symptoms: Gradual improvement of your right eye. *Notify Physician if: New onset neurological changes (weakness, numbness, change of speech/hearing/vision). *During Business Hours Contact: Dr Ramon *After Business Hours Contact: Call [facility] and have Dr Ramon or his covering provider contacted. *Pending Lab/Results: Follow up w/Provider - Referrals/Follow Up *Referrals/Follow Up: Pastor Ramon MD [Primary Care Provider] - 1 Week (Hoptal follow up for third nerve palsy - Prednisone taper started. Recommend recheck BMP as creatinine with elevation at presention-improved at discharge. CALL AND SCHEDULE APPOINTMENT TO BE SEEN IN 1 WEEK--[phone], MENTION TO DR. RAMON THAT DR. LYNCH RECOMMENDS BMP CHECK) Nina Irwin MD [Physician] - 2 Weeks (Hospital follow up for third nerve palsy. CALL AND SCHEDULE APPOINTMENT TO BE SEEN IN 2 WEEKS --[phone]) - Patient Handouts - Dismissal Complete Discharge Instructions are:: Complete Physician Narrative - Narrative Physician: Darien Lynch MD Attestation Narrative: Date: 03/04/18 Time: 927 I have independently interviewed and examined patient prior to discharge. See my progress note for details. Medically stable for discharge to home.
--- NOTE | 2018-03-05 11:03 | Echocardiogram ---
DATE 03/03/2018 INDICATION Stroke/TIA TECHNICAL QUALITY: Technically difficult study. 2D, M-mode and Doppler echocardiographic images were submitted for interpretation. FINDINGS 1. RHYTHM. Dysrhythmia is present in the form of PVCs and PACs. 2. CARDIAC CHAMBERS. Mild left atrial enlargement, measures 4.2 cm. All other cardiac chambers are normal in size. RV size and contractility appear normal. Aortic root diameter is normal. 3. LV FUNCTION. Concentric LVH is present. Measurement Department Chief Clerk measures 17 mm in the posterior wall and 15 mm in the septal wall. Visually appears to be less impressive. Wall motion analysis does not show significant wall motion abnormality. Wall motion analysis is somewhat limited by frequent PVCs. Systolic function appears preserved, ejection fraction measures 62%. There is mild diastolic dysfunction Grade I/IV present. 4. VALVES. Aortic and mitral valves structure and motion appear normal for age, normal valve excursion. Expected mild sclerotic changes are present. Tricuspid valve structure and motion appear normal, normal valve excursion. Visualization is limited. 5. DOPPLER. Doppler shows mild mitral regurgitation, very mild tricuspid regurgitation, with estimated systolic PA pressure of 49 mmHg consistent with mild pulmonary hypertension. IMPRESSION 1. Mild left atrial enlargement. 2. Concentric LVH. 3. Normal LV systolic function. 4. Dysrhythmias present with frequent PVCs and occasional PACs. 5. Mild mitral regurgitation. 6. Technically difficult study. 7. Mild pulmonary hypertension. 8. Normal central venous pressure. 9. Mild diastolic dysfunction, Grade I/IV. 10. No evidence of intracardiac masses, thrombi, vegetations or shunts. [facility]
== END 2018-03-03 18:40 | disposition home or self-care (01) ==
LOC: ED 15:28 → MED 15:28
PROVIDERS: ADMIT Hospitalist; ATTEND Hospitalist